=== PATIENT | female | born 1980 | race Caucasian/White ===

== ENCOUNTER → 2023-02-14 10:00 | Outpatient (CLI) | payer MEDICAID, SELFPAY ==
--- NOTE | 2023-02-14 10:00 | MR_ITS ---
FINAL REPORT CLINICAL HISTORY: 2wk s/p TIA diagnosis, eval for CVA had cva on january 24 constent headaches best images possible due to patient moving FINDINGS: Multi planar MR imaging was obtained through the brain without contrast. Images are degraded by patient motion. The midline structures appear intact. There is no evidence of Chiari malformation. On T2 and flair axial images the brain parenchyma is homogeneous. On diffusion-weighted images there is no evidence of restricted diffusion. The visualized paranasal sinuses demonstrate normal signal voids. The seventh and eighth nerve root complexes are intact. IMPRESSION: Essentially unremarkable nonenhanced brain MRI. Reviewed, Interpreted and Dictated by Doc Antonio MD Transcribed by Samantha Cardona Authenticated and [facility]
--- NOTE | 2023-02-14 10:00 | MR_ITS ---
FINAL REPORT CLINICAL HISTORY: eval for stenosis, brisk reflexes, neck pain FINDINGS: Multi planar MR imaging was obtained of the cervical spine. There is abnormal decreased signal throughout the cervical discs. The vertebrae are of normal height. There is no malalignment. The cervical cord demonstrates normal signal and configuration. C2-C3: There is no evidence of significant disc bulge or protrusion. There is no significant facet hypertrophy. C3-C4: There is no evidence of significant disc bulge or protrusion. There is no significant facet hypertrophy. C4-C5: Small midline disc protrusion is present with mild spinal canal compromise. C5-C6: Moderate diffuse disc bulge is present. There is mild to moderate spinal and moderate bilateral neural foraminal narrowing. C6-C7: Mild diffuse disc bulge is present with mild bilateral neural foraminal narrowing. C7-T1: There is no evidence of significant disc bulge or protrusion. There is no significant facet hypertrophy. IMPRESSION: Moderate diffuse disc bulge at C5-6 with mild to moderate spinal and moderate bilateral neural foraminal narrowing. Small midline disc protrusion at C4-5 with mild spinal canal compromise. Reviewed, Interpreted and Dictated by Doc Antonio MD Transcribed by Samantha Cardona Authenticated and [facility]
== END ==
PROVIDERS: PCP Family Medicine; Visit Provider Nurse Practitioner Family
DX: R51.9 Headache, unspecified (principal); G89.29 Other chronic pain; M54.2 Cervicalgia; I10 Essential (primary) hypertension; R29.2 Abnormal reflex; R46.89 Other symptoms and signs involving appearance and behavior
CPT/HCPCS: 70551; 72141; 76376

== ENCOUNTER → 2023-03-31 19:32 | Outpatient (CLI) | payer MEDICAID, SELFPAY | PROVIDERS: PCP Family Medicine; Visit Provider Nurse Practitioner Family | DX: G47.33 Obstructive sleep apnea (adult) (pediatric) (principal); R06.83 Snoring; I10 Essential (primary) hypertension; E66.9 Obesity, unspecified; Z68.41 Body mass index [BMI] 40.0-44.9, adult | CPT/HCPCS: 95810 ==

== ENCOUNTER → 2023-04-25 10:48 | Outpatient (CLI) | payer MEDICAID, SELFPAY ==
--- NOTE | 2023-04-25 10:57 | MR_ITS ---
FINAL REPORT CLINICAL HISTORY: LEFT LEG WEAKNESS bilateral leg numbness x 2 months FINDINGS: Multiplanar MR imaging of the lumbar spine was performed without contrast. On the sagittal T2-weighted images, there is abnormal decreased signal at the L4-5 and L5-S1 levels. There is moderate loss of height at L5-S1. The vertebral alignment is normal. L1-2: There is no significant canal stenosis or neural foraminal narrowing. L2-3: There is no significant canal stenosis or neural foraminal narrowing. L3-4: There is no significant canal stenosis or neural foraminal narrowing. L4-5: There is no significant canal stenosis or neural foraminal narrowing. L5-S1: Rije-rc-[id number] diffuse disc bulge with endplate hypertrophy. Ajcb-[id number] bilateral neural foraminal narrowing. IMPRESSION: Diffuse disc bulge at L5-S1 with [id number]-[id number] bilateral neural foraminal narrowing. Reviewed, Interpreted and Dictated by Doc Antonio MD Transcribed by Mulu Russell Authenticated and [facility]
== END ==
PROVIDERS: PCP Family Medicine; Visit Provider Nurse Practitioner Family
DX: R29.898 Other symptoms and signs involving the musculoskeletal system (principal)
CPT/HCPCS: 72148; 76376

== ENCOUNTER 2024-01-30 11:18 | Day surgery (SDC) | payer MEDICAID, SELFPAY ==
[2024-01-30 13:10] VITALS: BP 121/72; PULSE 77; RESP 18; TEMP 36.3; O2SAT 98; BMI 38.2
[2024-01-30] MEDS: VANCOMYCIN HCL 2,000 MG in 0.9 % SODIUM CHLORIDE 250 ML 125 MG IV (13:18)
[2024-01-30] MEDS: LACTATED RINGERS 1000ML 1,000 ML 25 ML IV (13:18)
--- NOTE | 2024-01-30 14:32 | EXP.ANES.CKL ---
[facility] Disclaimer: The information contained in this section may have been updated after the patient was seen, as this information can be updated by other users. Medical History SANJU (obstructive sleep apnea) Chronic headaches Surgical History History of colonoscopy History of esophagogastroduodenoscopy (EGD) History of hysterectomy History of laparoscopic cholecystectomy History of ureteroscopy Family History Other Cancer Coronary artery disease Hypertension Stroke Thyroid disorder Social History Smoking Status: Never smoker alcohol intake: never substance use type: denies use current occupational status: other Travel in the last 8 weeks: None household members: spouse housing: house marital status: [facility] Anesthesia Checklist Patient Identification Patient Identification: Arm Band, Family (Father) and Verbal (Name & ) Structural Data Admitted From: Home Planned Operative Procedure/s: Intrathecal pain pump placement Consent for Planned Operative Procedure(s) Verified: Yes Verified Documents: Surgical Consent and History and Physical NPO Status Verified Time NPO: 19:00 Chart Verification Results Verified: CBC and BMP Additional verifications Patient : No (s/p Hysterectomy) Anesthesia Reactions: No Hx Blood Transfusions: No Cardiovascular Assessment Heart Sounds: S1 & S2 Pulse Rhythm: Irregular Airway Assessment Mallampati Score:: Class II C-Spine Mobility Assessed: Yes (Limited extension) TMJ Mobility Assessed: Yes Dentition: Edentulous Neurological Assessment Level of Consciousness: Awake, Alert, Appropriate and Follows Commands Hx Seizures: No Numbness or tingling in extremities: Yes (LISBETH LE) Anesthesia Plan Anesthesia Risk discussed: Yes Anesthesia Plan: Verified ASA Class: III Anesthesia Type: MAC
[2024-01-30] MEDS: SODIUM CHLORIDE 0.9% 20ML VIAL 20 ML IV (15:49)
[2024-01-30] MEDS: LIDOCAINE 2% w/EPI 1:200,000 20ML VIAL 40 ML (15:49)
[2024-01-30] MEDS: GENTAMICIN 80 MG/2 ML VIAL (15:49)
[2024-01-30 16:20] VITALS: BP 129/83; PULSE 90; RESP 16; TEMP 36.3; O2SAT 96
[2024-01-30] MEDS: MORPHINE 4MG/ML SYRINGE 4 MG (16:22)
--- NOTE | 2024-01-30 16:23 | EXP.ANES.I ---
[facility] Anesthesia Record Part I Anesthesia Record I Intake, IV Amount: 900 Hydration: Adequate Estimated blood loss (mL): 10 Urine output (mL): 0 Blood Products used (#): none Blood Pressure: 129/83 SaO2: 96 Pulse Rate: 91 Airway Patency: Patent Respiratory Rate: 16 Temperature: 97.3 F Patient is:: Awake (Talking) and Stable Stable to PACU at:: 16:25
[2024-01-30 16:25] VITALS: BP 129/83; PULSE 91; RESP 16; TEMP 36.3; O2SAT 96
[2024-01-30] MEDS: KETOROLAC 30MG/ML VIAL 30 MG IV (16:25)
[2024-01-30 16:30] VITALS: BP 119/87; PULSE 84; RESP 16; O2SAT 97
[2024-01-30 16:40] VITALS: BP 112/85; PULSE 83; RESP 16; O2SAT 95
[2024-01-30 16:50] VITALS: BP 104/63; PULSE 84; RESP 16; TEMP 36.6; O2SAT 95
--- NOTE | 2024-01-30 16:54 | P.OP_ITS ---
Date of procedure: 01/30/24 Pre-op Diagnosis:: Degenerative disc disease of lumbar spine with lumbar radiculopathy symptoms Post-op Diagnosis:: Same Procedure performed:: Placement of permanent intrathecal pain pump with tunneled intrathecal catheter and pain pump reservoir. Surgeon:: Sascha Bueno MD BIBLE TEACHER:: Other Anesthesia: MAC Estimated blood loss (mL): 5 Clinical Note:: This patient is a pleasant 43-year-old white female who we are seeing in [place]. We are treating her for low back pain with lumbar radicular symptoms. She has failed all previous conservative treatments including injections, oral medications, physical therapy and she is not a candidate for surgery. She has had a successful psychological evaluation and a successful intrathecal pump trial. She presents for permanent placement of her intrathecal pain pump today. Operative findings:: None Operative note:: Informed consent was obtained risk and benefits of the procedure were explained to the patient. Patient was taken the operating room placed prone on the procedure table. She was prepped and draped in sterile fashion. C-arm fluoroscopy was used to view the left flank. Assisted between the 12th rib and iliac crest the skin and subcutaneous tissues were anesthetized using lidocaine. I made an incision and dissected out the pump pocket. C-arm fluoroscopy was then used to view the lumbar spine. The skin and subcutaneous tissues adjacent to the L4-5 and L5-S1 interspace were anesthetized using lidocaine. I made an incision and dissected down to the lumbar paraspinous fascia. A 17-gauge spinal needle was inserted and advanced into the L4-5 interspace until clear CSF was obtained. After this intrathecal catheter was inserted and advanced very easily to the T8 vertebral body. Catheter was midline and posterior. The stylette of the catheter and the needle withdrawn. The catheter secured to the fascia with an anchoring device and 2-0 Prolene. I then prepared the pump with 20 mL of intrathecal morphine 1 mg/mL. I tunneled the catheter from the back to the pump pocket and attached catheter to the pump. The pump was placed in the pocket with an antibiotic pouch. We are able to freely withdraw clear CSF through the sideport. Both incisions were then closed with 2-0 Vicryl followed by 4-0 nylon and subcutaneous mel. The pump was interrogated and started at 100 mcg/day. Patient tolerated the procedure well she was discharged home neurologically intact with good relief of pain symptoms. Plan and disposition: We will follow-up with this patient in our [place] office. Will see her back in 1 week for wound check and reprogramming of her pump. Will see her back in 2 to 3 weeks for removal of her sutures. Condition: stable Disposition: PACU Complications:: None
== END 2024-01-30 16:50 | disposition home or self-care (01) ==
PROVIDERS: PCP Family Medicine; Visit Provider Anesthesiology
PROC: (CPT 62350; principal; 2024-01-30 13:30)
DX: M51.16 Intervertebral disc disorders with radiculopathy, lumbar region (principal)
CPT/HCPCS: 62350; 62362; C1755; C1772; J3370

== ENCOUNTER 2024-02-05 13:01 | Outpatient (POV) | payer MEDICAID, SELFPAY ==
[2024-02-05 13:36] VITALS: BP 107/71; PULSE 91; RESP 18; O2SAT 96; BMI 38.2
--- NOTE | 2024-02-05 13:50 | EXP.PAIN.PRO ---
Procedure Date: 02/05/24 Time: 13:50 Anesthesiologist:: Jeanne Blanton APRN Complications:: None Pre-procedure Diagnosis:: Degenerative disc disease of lumbar spine with lumbar radiculopathy symptoms, chronic pain syndrome Post-procedure Diagnosis:: Same Indications for Procedure:: Patient is a pleasant 43-year-old female who presents today for 1 week postop visit of intrathecal pain pump placement on 01/30/2024. Today she rates her pain a 7 out of 10. Patient denies any problems following surgery however she states she has not noticed significant relief with her current dosage. Patient is currently managed with intrathecal morphine 1 mg/mL with a daily dose of 0.1001 mg/day. She denies any side effects from this medication. Her Abram has been reviewed. Patient was recently given a prescription of pain medication from an outside provider with a 3-day dose. Physical Exam: General: Alert and oriented x3, no acute distress, pleasant and cooperative Lungs: Respirations even and unlabored, symmetrical chest expansion Eyes: PERRL Musculoskeletal: Flexion and extension of lumbar [spine] somewhat guarded secondary to pain, [antalgic gait noted] Neurological: Speech clear, no gross sensory deficit Skin: Incision sites clean, dry, well-approximated with minimal erythema noted Procedure Details:: Informed consent was obtained and the risk and benefits of the procedure were explained to the patient. Patient was taken to the procedure room where noninvasive monitoring was placed including noninvasive blood pressure cuff and pulse oximeter. Patient's pump was interrogated and was reprogrammed to morphine 0.1202 g/day. The patient tolerated the procedure well with no complications. Plan and Disposition:: Patient tolerated her intrathecal increase with no complications and was discharged neurologically intact. Patient has been counseled to continue her postop restrictions and that we will plan on taking out her sutures next week. Patient is agreeable with this plan of care. Patient will return to clinic in 1 week for reevaluation of symptoms and plan of care. Patient has been instructed to contact the clinic with any concerns before the next appointment. Dr. Bueno has reviewed this note and agrees with this plan of care. This note was dictated using voice recognition software and make contain errors or omissions.
== END 2024-02-05 23:59 | disposition home or self-care (01) ==
PROVIDERS: PCP Family Medicine; Visit Provider Nurse Practitioner Family
DX: M51.16 Intervertebral disc disorders with radiculopathy, lumbar region (principal); G89.4 Chronic pain syndrome; Z97.8 Presence of other specified devices; Z45.1 Encounter for adjustment and management of infusion pump
CPT/HCPCS: 62368; 99213; G0463

== ENCOUNTER 2024-02-11 14:07 | Outpatient (POV) | payer MEDICAID, SELFPAY ==
--- NOTE | 2024-02-11 15:02 | EXP.PAIN.PRO ---
Procedure Date: 02/11/24 Time: 15:02 Anesthesiologist:: Jeanne Blanton APRN Complications:: None Pre-procedure Diagnosis:: Degenerative disc disease of lumbar spine with lumbar radiculopathy symptoms Post-procedure Diagnosis:: Same Indications for Procedure:: Patient is a pleasant 43-year-old female who presents today for intrathecal adjustment and reprogram and suture removal. Today she rates her pain a 5 out of 10. She denies any new trauma or injury. She does state that her pain is a little bit more tolerable from our last visit. She does state that her sutures are still very irritating and causing burning itching and tender to touch. Patient is currently managed with intrathecal morphine 1 mg/mL with a daily dose of 0.1 to 02 mg/day. She denies any side effects from this medication. Her Abram has been reviewed. Patient did have a recent prescription of Percocet with 12 tablets prescribed from an outside provider. Physical Exam: General: Alert and oriented x3, no acute distress, pleasant and cooperative Lungs: Respirations even and unlabored, symmetrical chest expansion Eyes: PERRL Musculoskeletal: Flexion and extension of lumbar [spine] somewhat guarded secondary to pain, [antalgic gait noted] Neurological: Speech clear, no gross sensory deficit Skin: Incision sites clean, dry, well-approximated with minimal erythema noted and sutures intact Procedure Details:: Informed consent was obtained and the risk and benefits of the procedure were explained to the patient. Patient was taken to the procedure room where noninvasive monitoring was placed including noninvasive blood pressure cuff and pulse oximeter. Patient's pump was interrogated and was reprogrammed to morphine 0.13 to 3 mg/day. The patient tolerated the procedure well with no complications. Plan and Disposition:: Patient tolerated her intrathecal increase with no complications and was discharged neurologically intact. Patient sutures were removed all but 3 in the lateral incision. We will wait and remove these at our next visit. Patient has been counseled to continue her full 6-week postop restrictions. Patient will return to clinic in 2 weeks for reevaluation of symptoms and plan of care. We will plan on following up with the patient regarding the Percocet prescription that she got from an outside provider to review over that she cannot do the oral medications with the pain medication in her pump due to increased risk of side effects. Patient has been instructed to contact the clinic with any concerns before the next appointment. Dr. Bueno has reviewed this note and agrees with this plan of care. This note was dictated using voice recognition software and make contain errors or omissions. -- It Is medically necessary for this patient to continue to have their intrathecal pump refilled at regular intervals. This patient had an intrathecal pain pump implanted after meeting criteria of chronic intractable pain for greater than 3 months and failing conservative treatments. Patient has committed and been compliant to the treatment plan and all planned follow up care. Since implantation of the intrathecal pain pump, the patient has had decreased pain and been more functional. Oral medications have been reduced including intake of oral opioids. Patient continues to do well with intrathecal therapy with decrease in pain symptoms and increase in functional status. Stopping intrathecal medications can lead to life threatening withdrawal, seizures, cardiac arrest, severe pain, and possible . Pumps that are not refilled at regular intervals can be damages and cause and need for replacement. We continually titrate dose and concentration to optimize pain relief and function. We are limited in concentration for certain drugs to safely deliver medications through the pump and stay within the recommendations from the [employer]yan[employer] Consensus [employer] Guidelines. Depending on dose and concentration these pumps may need to be refilled sooner than 3 months as we titrate.
[2024-02-11 15:32] VITALS: BP 111/76; PULSE 83; RESP 18; O2SAT 100; BMI 38.2
== END 2024-02-11 23:59 | disposition home or self-care (01) ==
PROVIDERS: PCP Family Medicine; Visit Provider Nurse Practitioner Family
DX: M51.16 Intervertebral disc disorders with radiculopathy, lumbar region (principal); Z97.8 Presence of other specified devices; Z45.1 Encounter for adjustment and management of infusion pump; Z48.02 Encounter for removal of sutures
CPT/HCPCS: 62368; 99213; G0463

== ENCOUNTER 2024-03-03 09:53 | Outpatient (POV) | payer MEDICAID, SELFPAY ==
[2024-03-03 10:04] VITALS: BP 144/96; PULSE 75; RESP 19; TEMP 36.8; O2SAT 97; BMI 38.2
--- NOTE | 2024-03-03 10:25 | P.PCN_ITS ---
Procedure Date: 03/03/24 Time: 10:26 Anesthesiologist:: Jeanne Blanton APRN Complications:: None Pre-procedure Diagnosis:: Degenerative disc disease of lumbar spine with lumbar radiculopathy symptoms Post-procedure Diagnosis:: Same Indications for Procedure:: Patient is a pleasant 43-year-old female who presents today for intrathecal adjustment and reprogram and suture removal. Today she rates her pain a 5 out of 10 in her overall low back symptoms and a 7 out of 10 related to her neck. She denies any new trauma or injury. She does state that she went to the doctor's office about 2 weeks ago and that they did have some concern regarding her incision and gave her some oral antibiotics. She denies any other problems other than the old skin glue that is still present does cause itching. She is currently managed with intrathecal morphine 1 mg/mL with a daily dose of 0. 1323 mg/day. She denies any side effects from this medication. Her Abram is [phone]. Has been reviewed and is appropriate Physical Exam: General: Alert and oriented x3, no acute distress, pleasant and cooperative Lungs: Respirations even and unlabored, symmetrical chest expansion Eyes: PERRL Musculoskeletal: Flexion and extension of lumbar [spine] somewhat guarded secondary to pain, [antalgic gait noted] Neurological: Speech clear, no gross sensory deficit Skin: Incision sites clean, dry, well-approximated with minimal erythema noted and sutures intact Procedure Details:: Informed consent was obtained and the risk and benefits of the procedure were explained to the patient. Patient was taken to the procedure room where noninvasive monitoring was placed including noninvasive blood pressure cuff and pulse oximeter. Patient's pump was interrogated and was reprogrammed to morphine 0.1455 mg/day. The patient tolerated the procedure well with no complications. Plan and Disposition:: Patient did have the remainder 3 sutures removed at today's visit. I have discussed with the patient that she may benefit from a cervical injection in the future. We will follow-up at future visits. Patient was informed to continue her postop restrictions for the full 6 weeks. Patient acknowledges under standing. She did tolerated her intrathecal increase with no complications and was discharged neurologically intact. We will follow-up with her in 1 month for reevaluation of symptoms and plan of care. Patient has been instructed to contact the clinic with any concerns before the next appointment. Dr. Bueno has reviewed this note and agrees with this plan of care. This note was dictated using voice recognition software and make contain errors or omissions. -- It Is medically necessary for this patient to continue to have their intrathecal pump refilled at regular intervals. This patient had an intrathecal pain pump implanted after meeting criteria of chronic intractable pain for greater than 3 months and failing conservative treatments. Patient has committed and been compliant to the treatment plan and all planned follow up care. Since implantation of the intrathecal pain pump, the patient has had decreased pain and been more functional. Oral medications have been reduced including intake of oral opioids. Patient continues to do well with intrathecal therapy with decrease in pain symptoms and increase in functional status. Stopping intrathecal medications can lead to life threatening withdrawal, seizures, cardiac arrest, severe pain, and possible . Pumps that are not refilled at regular intervals can be damages and cause and need for replacement. We continually titrate dose and concentration to optimize pain relief and function. We are limited in concentration for certain drugs to safely deliver medications through the pump and stay within the recommendations from the Polyanalgesic Consensus Committee Guidelines. Depending on dose and concentration these pumps may need to be refilled sooner than 3 months as we titrate.
== END 2024-03-03 23:59 | disposition home or self-care (01) ==
PROVIDERS: PCP Family Medicine; Visit Provider Nurse Practitioner Family
DX: M51.16 Intervertebral disc disorders with radiculopathy, lumbar region (principal); Z97.8 Presence of other specified devices; Z45.1 Encounter for adjustment and management of infusion pump; Z48.02 Encounter for removal of sutures
CPT/HCPCS: 62368; 99212; 99213; G0463

== ENCOUNTER 2024-04-14 12:48 | Outpatient (POV) | payer MEDICAID, SELFPAY ==
[2024-04-14 12:57] VITALS: BP 150/96; PULSE 66; RESP 16; O2SAT 98; BMI 39.2
--- NOTE | 2024-04-14 13:05 | P.PCN_ITS ---
Procedure Date: 04/14/24 Time: 13:05 Anesthesiologist:: Jeanne Blanton APRN Complications:: None Pre-procedure Diagnosis:: Degenerative disc disease of lumbar spine with lumbar radiculopathy symptoms Post-procedure Diagnosis:: Same Indications for Procedure:: Patient is a pleasant 43-year-old female who presents today for intrathecal adjustment and reprogram. Today she rates her pain a 7 out of 10. Patient denies any new trauma or injury. She does state that she is still having a burn ing throbbing pain in and around her lateral incision that does go into her buttocks with some numbness. Patient states that she has had the numbness even before the pump however it just seems to be progressively worsening. Patient is currently managed with morphine 1 mg/mL with a daily dose of 0.1455 mg/day. She denies any side effects from this medication. She is on at home refill client with [facility] and does state that she believes her next refill will be around May. Her Abram has been reviewed and is appropriate. Physical Exam: General: Alert and oriented x3, no acute distress, pleasant and cooperative Lungs: Respirations even and unlabored, symmetrical chest expansion Eyes: PERRL Musculoskeletal: Flexion and extension of lumbar [spine] somewhat guarded secondary to pain, [antalgic gait noted] point tenderness around left lateral incision site Neurological: Speech clear, no gross sensory deficit Procedure Details:: Informed consent was obtained and the risk and benefits of the procedure were explained to the patient. Patient was taken to the procedure room where noninvasive monitoring was placed including noninvasive blood pressure cuff and pulse oximeter. Patient's pump was interrogated and was reprogrammed to morphine 0.1601mg/day. The patient tolerated the procedure well with no complications. Plan and Disposition:: Patient tolerated her intrathecal increase with no complications. I have discussed with patient that I will order a compounded cream however if the pain does not seem to get any better that she may benefit from trigger point injections in and around her lateral incision site where the pump is. Patient acknowledges understanding and agrees with this plan of care. We will not give her a follow-up at this time however she states she will give us a call if she needs anything between now and her next pump refill. We will see the patient back in the clinic at the next intrathecal refill. Patient has been instructed to contact the clinic with any concerns before the next appointment. Dr. Bueno has reviewed this note and agrees with this plan of care. This note was dictated using voice recognition software and make contain errors or omissions. -- It Is medically necessary for this patient to continue to have their intrathecal pump refilled at regular intervals. This patient had an intrathecal pain pump implanted after meeting criteria of chronic intractable pain for greater than 3 months and failing conservative treatments. Patient has committed and been compliant to the treatment plan and all planned follow up care. Since implantation of the intrathecal pain pump, the patient has had decreased pain and been more functional. Oral medications have been reduced including intake of oral opioids. Patient continues to do well with intrathecal therapy with decrease in pain symptoms and increase in functional status. Stopping intra thecal medications can lead to life threatening withdrawal, seizures, cardiac arrest, severe pain, and possible . Pumps that are not refilled at regular intervals can be damages and cause and need for replacement. We continually titrate dose and concentration to optimize pain relief and function. We are limited in concentration for certain drugs to safely deliver medications through the pump and stay within the recommendations from the Polyanalges[employer] Consensus Committee Guidelines. Depending on dose and concentration these pumps may need to be refilled sooner than 3 months as we titrate.
== END 2024-04-14 23:59 | disposition home or self-care (01) ==
PROVIDERS: PCP Family Medicine; Visit Provider Nurse Practitioner Family
DX: M51.16 Intervertebral disc disorders with radiculopathy, lumbar region (principal); Z97.8 Presence of other specified devices; Z45.1 Encounter for adjustment and management of infusion pump
CPT/HCPCS: 62368; 99212; G0463

== ENCOUNTER 2024-10-19 10:45 | Day surgery (SDC) | payer MEDICAID, SELFPAY ==
--- OUTSIDE RECORDS SUMMARY | 2024-10-19 10:48 | XMS_ITS | Clinical Summary ---
Author Organization [employer] Address [address] [place] [address] Care Team Providers Care Sba Underwriter Name Role Phone Uyen Hines MD Primary Care Provider [phone] Gee Quan BULL RIDER Unavailable [phone] Allergies No known active allergies Medications ALPRAZolam (XANAX) 1 MG tablet Take 1 tablet (1 mg total) by mouth 3 (three) times daily as needed. 3 Active busPIRone (BUSPAR) 7.5 MG tablet Take by mouth. Activ e escitalopram oxalate (LEXAPRO) 20 MG tablet Take 1 tablet (20 mg total) by mouth. 2 Active levothyroxine (SYNTHROID, LEVOTHROID) 200 MCG tablet Take 1 tablet (200 mcg total) by mouth. 2 Active lisinopriL (PRINIVIL,ZESTRIL ) 10 MG tablet Take 1 tablet (10 mg total) by mouth daily. 3 Active carvediloL (COREG) 6.25 MG tablet Take 1 tablet (6.25 mg total) by mouth 2 (two) times daily with breakfast and dinner. Active aspirin 81 MG EC tablet Take 1 tablet (81 mg total) by mouth daily. Active TiZANidine (ZANAFLEX) 4 MG capsule Take 1 capsule (4 mg total) by mouth 3 (three) times daily. Active ubrogepant 100 mg Tab Take by mouth. Activ e acetaminophen (TYLENOL ARTHRITIS ORAL) Take by mouth. Active acetaminophen (TYLENOL) 500 MG tablet Take 1 tablet (500 mg total) by mouth every 6 (six) hours as needed for Pain. Active sucralfate (CARAFATE) 100 mg/mL suspensionIndicat ions:Eosinophilic esophagitis,Esoph ageal dysphagia Take 10 mLs (1 g total) by mouth 3 (three) times daily before meals. 900 mL 1 4 Active pantoprazole (PROTONIX) 40 MG tabletIndications :Gastroesophageal reflux disease with esophagitis without hemorrhage Take 1 tablet (40 mg total) by mouth 2 (two) times daily. 180 tablet 2 4 Active pancrelipase, Urq-Idgy-Dvug, (Creon) 36,000-114,000- 180,000 unit CpDR capsule Take 2 capsule by mouth 3 times daily with meals and 1 cap with snacks.. 300 capsule 11 4 Active polyethylene glycol (GLYCOLAX) 17 gram/dose powderIndications :Acute constipation Mix with 8 oz liquid.Take 1-2 capfuls (17 gm each) by mouth twice daily until having regular BM's, then once daily. 510 g 4 Active budesonide (Eohilia) 2 mg/10 mL SpPkIndications:E osinophilic esophagitis Take 2 mg by mouth 2 (two) times daily. 60 packet 2 4 Active colestipoL (COLESTID) 1 gram tabletIndications :Diarrhea, unspecified type Take 1 tablet (1 g total) by mouth 3 (three) times daily. 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 Generalized abdominal pain 09/07/2024 CHF (congestive heart failure) 12/18/2023 Gastroesophageal reflux disease 12/18/2023 Dysphagia 12/18/2023 Chronic renal insufficiency 12/18/2023 SANJU (obstructive sleep apnea) 12/18/2023 Anxiety 02/24/2023 CKD (chronic kidney disease), stage III 02/25/20 Depression 02/24/2023 Eosinophilic esophagitis 02/24/2023 Hypertension 02/24/2023 Hypothyroid 02/24/2023 Migraines 02/24/2023 Stroke (cerebrum) 02/24/2023 Encounters Date Type Department Care Team Description 09/28/2024 9:30 AM EST - 09/28/2024 11:59 PM EST Hospital Encounter [facility] Nuclear Medicine [address] [place] [address] Galen Alvarenga MD Generalized abdominal pain; Weight loss, unintentional; Constipation, unspecified constipation type; Elevated fecal calprotectin; Common bile duct dilation; Dysphagia, unspecified type; Diarrhea, unspecified type Discharge Disposition: Home or Self Care 09/27/2024 Travel 09/20/2024 Orders Only [facility] Gastroenterology [address] [place] [address] Galen Alvarenga MD Generalized abdominal pain (Primary Dx); Weight loss, unintentional; Constipation, unspecified constipation type; Elevated fecal calprotectin; Common bile duct dilation; Dysphagia, unspecified type; Diarrhea, unspecified type 09/17/2024 Telephone [facility] Gastroenterology [address] [place] [address] Galen Alvarenga MD 0 09/16/2024 Travel 09/13/2024 Travel 09/07/2024 6:24 PM EDT - 09/07/2024 10:16 PM EDT Emergency [facility] Emergency Department [address] [place] [address] Salvador Suh MD Addisons disease (HCC) (Primary Dx); Stage 3a chronic kidney disease (HCC); Generalized abdominal pain Discharge Disposition: Home or Self Care 09/07/2024 Travel 09/02/2024 Orders Only [facility]enter[facility] [address] [place] [address] Galen Alvarenga MD Generalized abdominal pain (Primary Dx); Weight loss, unintentional; Constipation, unspecified constipation type; Elevated fecal calprotectin; Common bile duct dilation 09/01/2024 7:34 AM EDT Anesthesia Event [facility] Endoscopy [address] [place] [address] Juan Adam CRNA Demaio, John Mario, MD 09/01/2024 7:30 AM EDT - 09/01/2024 7:58 AM EDT Surgery [facility] [address] [place] [address] Galen Alvarenga MD ENDOSCOPY, UPPER GI TRACT, WITH BIOPSY 09/01/2024 6:52 AM EDT - 09/01/2024 8:23 AM EDT Hospital Encounter [facility] [address] [place] [address] Galen Alvarenga MD Dysphagia Discharge Disposition: Home or Self Care 09/01/2024 Travel 2024 10:00 AM EDT - 2024 11:59 PM EDT Hospital Encounter [facility] [address] [place] [address] Danya Marcus APRN Elevated fecal calprotectin Discharge Disposition: Home or Self Care 2024 Travel from Last 3 Months Family History Medical History Relation Name Comments Heart disease Father Colon cancer Maternal Grandmother Relation Name Status Comments Father Maternal Grandmother Mother Alive Social History Tobacco Use Types Packs/Day Years Used Date Smoking Tobacco: Never Smokeless Tobacco: Never Tobacco Cessation:Counseling Given: Not Answered Alcohol Use Standard Drinks/Week Comments Never 0 (1 standard drink = 0.6 oz pur e alcohol) Interpersonal Safety Answer Date Record ed Family or friends hurt you Not on file 12/11 Family or friends insult you Not on file Family or friends threaten you Not on file 0 12/11/2023 Family or friends scream or curse at you Not on file 12/11/2023 Housing Stability Answer Date Recorded Living situation today Not on file Living situation problems Not on file 2023 Food Insecurity Answer Date Recorded Food run out past 12 months Not on file 11/24 Food did not last past 12 months Not on file 12/11/2023 Employment Answer Date Recorded Help finding and keeping a job Not on file 0 12/11/2023 Family and Community Support Answer Alexander e Recorded Help with Day to Day Activities Not on file 12/11/2023 Feeling Lonely or Isolated Not on file 12/11 Educational Attainment Answer Date Ralf rded Speak language other than Wallisian at home Not on file 12/11/2023 Want help with school or training Not on file 12/11/2023 Depression Answer Date Recorded PHQ-2 Risk Not on file 12/11/2023 Disabilities Answer Date Recorded Difficulty concentrating Not on file 024 Difficulty doing errands alone Not on file 0 12/11/2023 Substance Use Answer Date Recorded Used prescription meds for non-medical reasons N ot on file 12/11/2023 Used illegal drugs past 12 months Not on file 12/11/2023 Comments No Sex and Gender Information Value Date Recorded Sex Assigned at Not on file Legal Sex Female 5:55 PM CDT Gender Identity Not on file Sexual Orientation Not on file Last Filed Vital Signs Vital Sign Reading Time Taken Comments Blood Pressure 136/74 09/07/2024 10:00 PM EDT Pulse 64 09/07/2024 10:00 PM EDT Temperature 36.5 ??C (97.7 ??F) 09/07/2024 6:29 PM ED T Respiratory Rate 16 09/07/2024 10:00 PM EDT Oxygen Saturation 98% 09/07/2024 10:00 PM EDT Inhaled Oxygen Concentration - - Weight 104.8 kg (231 lb) 09/07/2024 6:29 PM EDT Height 165.1 cm (5' 5 ) 09/07/2024 6:29 PM EDT Body Mass Index 38.44 09/07/2024 6:29 PM EDT Plan of Treatment Upcoming Encounters Date Type Department Care Team (Late st Contact Info) Description 12/28/2024 11:00 AM EST Office Visit [facility] Gastroenterology [address] [place] [id number] Galen Alvarenga MD [address] [place] [address] Health Maintenance Due Date Last Done Comments HIV Screening 1997 Hepatitis C Screening 2000 DTAP/TDAP/TD VACCINES (1 - Tdap) 2001 Lipid Panel 2002 Pap Smear 2003 Breast Cancer Screening 2022 COVID-19 VACCINE ( - 2023- season) 2024 Influenza Vaccine (#1) 2024 Tobacco Cessation Counseling and Screening (12+) 09/0709/07/2024 Procedures Procedure Name Priority Date/Time Associated Diagnosis Comments NM GASTRIC EMPTYING STUDY Routine 09/28/2024 12:53 PM EST Generalized abdominal pain Weight loss, unintentional Constipation, unspecified constipation type Elevated fecal calprotectin Common bile duct dilation Dysphagia, unspecified type Diarrhea, unspecified type CT ABDOMEN/PELVIS WITH IV CONTRAST STAT 09/07/2024 8:56 PM EDT XR CHEST 1 VIEW PORTABLE / BEDSIDE STAT 09/07/2024 7:39 PM EDT URINALYSIS, REFLEX MICROSCOPIC AND CULTURE IF INDICATED STAT 09/07/2024 7:20 PM EDT SARS-COV2 PCR (COVID 19) STAT 09/07/2024 7:16 PM EDT MAGNESIUM Add-On 09/07/2024 7:15 PM EDT HIGH SENSITIVITY TROPONIN I STAT 09/07/2024 7:15 PM EDT LIPASE STAT 09/07/2024 7:15 PM EDT COMPREHENSIVE METABOLIC PANEL STAT 09/07/2024 7:15 PM EDT CBC W/ AUTO DIFF STAT 09/07/2024 7:15 PM EDT FS_MODEL_IP_ECG 12-LEAD STAT 09/07/2024 7:05 PM EDT TISSUE EXAM [facility] AP Routine 09/01/2024 7:44 AM EDT Dysphagia MD EGD TRANSORAL BIOPSY SINGLE/MULTIPLE 09/01/2024 7:34 AM EDT Dysphagia Case Notes 0645 CT ABDOMEN & PELVIS - ENTEROGRAPHY Routine 2024 11:45 AM EDT Elevated fecal calprotectin POCT-CREATININE NOVA Routine 2024 11:20 AM EDT from Last 3 Months Results * NM GASTRIC EMPTYING STUDY (09/28/2024 12:53 PM EST) Anatomical Region Laterality Modality Abdomen Nuclear Medicine 09/28/2024 2:28 PM EST Impressions 09/28/2024 2:36 PM EST Normal T-1/2. ??No evidence of gastroparesis or gastric outlet obstruction. Images reviewed, interpreted, and dictated by Dr. Doc Antonio. Transcribed by Heath Flores PA-C. Narrative 09/28/2024 2:36 PM EST NUCLEAR MEDICINE GASTRIC EMPTYING HISTORY: Generalized abdominal pain, weight loss and constipation. PROCEDURE: The patient received a standardized meal with 0.471 mCi of Tc sulfur colloid. Images of the abdomen were obtained. The T-1/2 was calculated. FINDINGS: Images over the abdomen are unremarkable. The T-1/2 is 78 minutes. Procedure Note Doc Antonio MD - 09/28/2024 NUCLEAR MEDICINE GASTRIC EMPTYING HISTORY: Generalized abdominal pain, weight loss and constipation. PROCEDURE: The patient received a standardized meal with 0.471 mCi of Tc sulfur colloid. Images of the abdomen were obtained. The T-1/2 was calculated. FINDINGS: Images over the abdomen are unremarkable. The T-1/2 is 78 minutes. IMPRESSION: Normal T-1/2. No evidence of gastroparesis or gastric outlet obstruction. Images reviewed, interpreted, and dictated by Dr. Doc Antonio. Transcribed by Heath Flores PA-C. Galen [place]ga [place] [facility] Final Result * CT ABDOMEN/PELVIS WITH IV CONTRAST (09/07/2024 8:56 PM EDT) Anatomical Region Laterality Modality Abdomen, Pelvis Computed Tomogra phy (CT) 09/07/2024 9:23 PM EDT Impressions 09/07/2024 9:26 PM EDT No acute findings in the abdomen or pelvis to account for the patient's symptoms. Images personally reviewed, interpreted and dictated by Ke Lowery M.D. Narrative 09/07/2024 9:[address] SCAN OF THE ABDOMEN AND PELVIS WITH CONTRAST ?09/07/2024 8:43 PM HISTORY: Abdominal pain, acute, nonlocalized PROCEDURE: Axial CT images were obtained from the lung bases to the pubic symphysis following IV contrast administration. Coronal and sagittal reformatted images were generated from the axial data set and provided for interpretation. This study was performed with techniques to keep radiation doses as low as reasonably achievable, (ALARA). Individualized dose reduction techniques using automated exposure control or adjustment of mA and/or kV according to the patient size were employed. COMPARISON: 2024. FINDINGS: LOWER CHEST: The heart is normal in size. Lung bases are clear. ABDOMEN/PELVIS: Liver, gallbladder and bile ducts: The liver enhances homogenously without suspicious focal hepatic lesion. Prior cholecystectomy. No significant biliary ductal dilatation. Adrenal glands: The adrenal glands are morphologically unremarkable without suspicious lesion. Kidneys, ureters and urinary bladder: No suspicious renal lesions. No hydronephrosis. Unremarkable urinary bladder. Spleen: The spleen is normal in size. Pancreas: The pancreas is unremarkable. Gastrointestinal system and mesentery: There is no evidence of bowel obstruction. The appendix is visualized and unremarkable. No significant mesenteric inflammation. Lymph nodes: No pathologically enlarged abdominal or pelvic lymph nodes are present. Vessels: The abdominal aorta is normal in caliber. The celiac trunk, superior mesenteric artery, inferior mesenteric artery and their branch vessels appear grossly patent. The superior mesenteric vein, splenic vein and main portal veins are patent. The inferior vena cava and hepatic veins are unremarkable. Peritoneum: No free intraperitoneal fluid or pneumoperitoneum. Pelvic viscera: Prior hysterectomy. Body wall: No acute findings. No significant body wall hernias. Intrathecal drug delivery pump present within the left lumbar soft tissues. Bones: No acute fracture. Procedure Note Mendoza Bell MD - 09/07/2024 CT SCAN OF THE ABDOMEN AND PELVIS WITH CONTRAST 09/07/2024 8:43 PM HISTORY: Abdominal pain, acute, nonlocalized PROCEDURE: Axial CT images were obtained from the lung bases to the pubic symphysis following IV contrast administration. Coronal and sagittal reformatted images were generated from the axial data set and provided for interpretation. This study was performed with techniques to keep radiation doses as low as reasonably achievable, (ALARA). Individualized dose reduction techniques using automated exposure control or adjustment of mA and/or kV according to the patient size were employed. COMPARISON: 2024. FINDINGS: LOWER CHEST: The heart is normal in size. Lung bases are clear. ABDOMEN/PELVIS: Liver, gallbladder and bile ducts: The liver enhances homogenously without suspicious focal hepatic lesion. Prior cholecystectomy. No significant biliary ductal dilatation. Adrenal glands: The adrenal glands are morphologically unremarkable without suspicious lesion. Kidneys, ureters and urinary bladder: No suspicious renal lesions. No hydronephrosis. Unremarkable urinary bladder. Spleen: The spleen is normal in size. Pancreas: The pancreas is unremarkable. Gastrointestinal system and mesentery: There is no evidence of bowel obstruction. The appendix is visualized and unremarkable. No significant mesenteric inflammation. Lymph nodes: No pathologically enlarged abdominal or pelvic lymph nodes are present. Vessels: The abdominal aorta is normal in caliber. The celiac trunk, superior mesenteric artery, inferior mesenteric artery and their branch vessels appear grossly patent. The superior mesenteric vein, splenic vein and main portal veins are patent. The inferior vena cava and hepatic veins are unremarkable. Peritoneum: No free intraperitoneal fluid or pneumoperitoneum. Pelvic viscera: Prior hysterectomy. Body wall: No acute findings. No significant body wall hernias. Intrathecal drug delivery pump present within the left lumbar soft tissues. Bones: No acute fracture. IMPRESSION: No acute findings in the abdomen or pelvis to account for the patient's symptoms. Images personally reviewed, interpreted and dictated by Ke Lowery M.D. Artem Berry PA-C [facility]LES Final Res ult * XR chest 1 view portable / bedside (09/07/2024 7:39 PM EDT) Anatomical Region Laterality Modality X-Ray 09/07/2024 10:0 3 PM EDT Impressions 09/07/2024 10:04 PM EDT No acute cardiopulmonary findings. Images personally reviewed, interpreted and dictated by Ke Lowery M.D. Narrative 09/07/2024 10:04 PM EDT EXAMINATION TECHNIQUE: XR CHEST 1 VIEW PORTABLE / BEDSIDE CLINICAL HISTORY: GENERAL ILLNESS COMPARISON: 05/26/2024 FINDINGS: No dense consolidation. No pneumothorax or pleural effusion. Normal heart size. Procedure Note Mendoza Bell MD - 09/07/2024 EXAMINATION TECHNIQUE: XR CHEST 1 VIEW PORTABLE / BEDSIDE CLINICAL HISTORY: GENERAL ILLNESS COMPARISON: 05/26/2024 FINDINGS: No dense consolidation. No pneumothorax or pleural effusion. Normal heart size. IMPRESSION: No acute cardiopulmonary findings. Images personally reviewed, interpreted and dictated by Ke Lowery M.D. us Artem Berry PA-C [facility] ORDMati BRIGGSANTHONY Final Result * Urinalysis, Reflex Microscopic and Culture If Indicated (09/07/2024 7:20 PM EDT) Color, UA Yellow 09/07/2024 7:41 PM EDT [facility] Clarity, UA Clear 09/07/2024 7:41 PM EDT [facility] Specific [place], UA 1.015 1.002 - 1.030 09/07/2024 7:41 PM EDT [facility] pH, UA 6.0 5.0 - 9.0 09/07/2024 7:41 PM EDT [facility] Leukocytes, UA Negative Negative 09/07/2024 7:41 PM EDT [facility] Nitrite, UA Negative Negative 09/07/2024 7:41 PM EDT [facility] Protein, UA Negative Negative 09/07/2024 7:41 PM EDT [facility] Glucose, UA Negative Negative 09/07/2024 7:41 PM EDT [facility] Ketones, UA Negative Negative 09/07/2024 7:41 PM EDT [facility] Bilirubin, UA Negative Negative 09/07/2024 7:41 PM EDT [facility] Blood, UA Negative Negative 09/07/2024 7:41 PM EDT [facility] Urobilinogen, UA 0.2 mg/dL Normal 09/07/2024 7:41 PM EDT [facility] Specimen Source Urine, Clean Catch 09/07/2024 7:41 PM EDT [facility] Urine URINE SPECIMEN COLLECTION, CLEAN CATCH / Unknown 09/07/2024 7:20 PM EDT 09/07/2024 7:32 PM EDT Stefanicharito Jamal PA-C URINE ORDERABLES Final Resu lt Performing Organization Address City/[facility] Co de Phone Number [facility] [address] [place] [address] * SARS-COV2/RT-PCR (09/07/2024 7:16 PM EDT) SARS-COV2/RT-P CR Negative Negative DEVICE [id number] 09/07/2024 7:56 PM EDT [facility] Nasopharyngeal NASOPHARYNGEAL SWAB / Unknown 09/07/2024 7:16 PM EDT 09/07/2024 7:24 PM EDT Narrative [facility] - 09/07/2024 7:56 PM EDT Testing was performed using RT-PCR methodology approved for use under FDA Emergency Use Authorization only. Negative results do not preclude infection with the SARS-CoV-2 virus and should not be used as the sole basis of a patient treatment or public health decisions. Negative results must be considered in the context of an individual's recent exposures, history, and presence of clinical signs/symptoms. Follow-up testing should be performed according to the current CDC recommendations. Artem AGUILAR-C MICROBIOLOGY - GENERAL ORDE RABLES Final Result Performing Organization Address City/[facility]/ZIP Co de Phone Number [facility] [address] [place] [address] * (ABNORMAL) CBC with Auto Diff (09/07/2024 7:15 PM EDT) WBC 8.8 4.8 - 10.8 K/??L 09/07/2024 7:31 PM EDT [facility] RBC 4.55 3.50 - 5.20 M/??L 09/07/2024 7:31 PM EDT [facility] Hemoglobin 13.2 11.7 - 15.8 GM/DL 09/07/2024 7:31 PM EDT [facility] Hematocrit 40.2 35.0 - 47.0 % 09/07/2024 7:31 PM EDT [facility] MCV 88 81 - 101 fL 09/07/2024 7:31 PM EDT [facility] MCH 29.0 27.0 - 34.0 pg 09/07/2024 7:31 PM EDT [facility] MCHC 32.8 32.0 - 36.0 GM/DL 09/07/2024 7:31 PM EDT [facility] RDW 13.9 11.5 - 14.5 % 09/07/2024 7:31 PM EDT [facility] Platelets 359 150 - 400 K/CU MM 09/07/2024 7:31 PM EDT [facility] MPV 8.7(L) 9.4 - 12.4 fL 09/07/2024 7:31 PM EDT [facility] Nucleated Red Blood Cell 0.0 0 - 0.2 % 09/07/2024 7:31 PM EDT [facility] % Neutros 44 37 - 80 % 09/07/2024 7:31 PM EDT [facility] % Lymphs 39 10 - 50 % 09/07/2024 7:31 PM EDT [facility] % Monos 11 5 - 13 % 09/07/2024 7:31 PM EDT [facility] % Eos 5 0 - 7 % 09/07/2024 7:31 PM EDT [facility] % Baso 1 0 - 3 % 09/07/2024 7:31 PM EDT [facility] NRBC Absolute <0.01 0 - 0.012 K/ul 09/07/2024 7:31 PM EDT [facility] # Neutros 3.89 2.00 - 6.90 K/??L 09/07/2024 7:31 PM EDT [facility] # Lymphs 3.48(H) 0.60 - 3.40 K/??L 09/07/2024 7:31 PM EDT [facility] # Monos 0.93(H) 0.00 - 0.90 K/??L 09/07/2024 7:31 PM EDT [facility] # Eos 0.40 0.00 - 0.70 K/??L 09/07/2024 7:31 PM EDT [facility] # Baso 0.08 0.00 - 0.20 K/??L 09/07/2024 7:31 PM EDT [facility] Immature Granulocytes-Re lative 0.60 % 09/07/2024 7:31 PM EDT [facility] # IG 0.05(H) 0.00 - 0.00 K/uL 09/07/2024 7:31 PM EDT [facility] Blood ENTIRE LEFT UPPER ARM / Unknown Venipuncture / Unknown 09/07/2024 7:15 PM EDT 09/07/2024 7:26 PM EDT Narrative [facility] - 09/07/2024 7:31 PM EDT When CBC w/ Auto Diff is ordered the lab will add a Manual Differential as a quality check at no additional charge if: Lymphocytes greater than seventy five percent with normal or increased WBC Monocytes greater than Fifteen percent Basophil greater than four percent Bands >10% or several immature myeloids are seen on scan Blast? Flag noted Atypical Lymph flag noted Artem Berry PA-C LAB BLOOD ORDERABLES Final Result [facility] [address] [place] [address] * (ABNORMAL) High Sensitivity Troponin I (09/07/2024 7:15 PM EDT) Troponin I High Sensitivity (pg/mL) <4(L) 4 - 60.3 pg/mL 09/07/2024 8:01 PM EDT [facility] Comment: Troponin Result (pg/mL) ??*Interpretation 4-60.3 ? *Normal; less than 99th percentile of normal range >60.3 ?*Abnormal; greater than 99th percentile of normal range Biotin specimen concentration >300 ng/mL may lead to falsely depressed results for patient samples. ??Do not use this test for renal dysfunction patients (eGFR <60) unless it is confirmed that the patient is not taking Biotin. Blood ENTIRE LEFT UPPER ARM / Unknown Venipuncture / Unknown 09/07/2024 7:15 PM EDT 09/07/2024 7:26 PM EDT Artem Berry PA-C LAB BLOOD ORDERABLES Final Result Performing Organization Address [facility] Co de Phone Number [facility] [address] [place] [address] * Magnesium (09/07/2024 7:15 PM EDT) Magnesium 2.1 1.8 - 2.4 mg/dL 09/07/2024 9:31 PM EDT [facility] Blood ENTIRE LEFT UPPER ARM / Unknown Venipuncture / Unknown 09/07/2024 7:15 PM EDT 09/07/2024 7:26 PM EDT Monse Crooks PA-C LAB BLOOD ORDERABLES Final Resu lt Performing Organization Address City/[facility]/ZIP Co de Phone Number [facility] [address] [place] [address] * Lipase (09/07/2024 7:15 PM EDT) Lipase 29 16 - 77 U/L 09/07/2024 8:01 PM EDT [facility] Blood ENTIRE LEFT UPPER ARM / Unknown Venipuncture / Unknown 09/07/2024 7:15 PM EDT 09/07/2024 7:26 PM EDT Artem Berry PA-C LAB BLOOD ORDERABLES Final Result [facility] [address] [id number] [phone] * (ABNORMAL) Comprehensive metabolic panel (09/07/2024 7:15 PM EDT) Sodium 138 136 - 145 meq/L 09/07/2024 8:01 PM EDT [facility] Potassium 4.0 3.5 - 5.1 meq/L 09/07/2024 8:01 PM EDT [facility] Chloride 103 98 - 107 meq/L 09/07/2024 8:01 PM EDT [facility] CO2 29 21 - 32 meq/L 09/07/2024 8:01 PM EDT [facility] Calcium 8.9 8.5 - 10.1 mg/dL 09/07/2024 8:01 PM EDT [facility] Glucose 87 70 - 99 mg/dL 09/07/2024 8:01 PM EDT [facility] BUN 10 7 - 18 mg/dL 09/07/2024 8:01 PM EDT [facility] Creatinine 1.46(H) 0.55 - 1.10 mg/dL 09/07/2024 8:01 PM EDT [facility] BUN/Creatinine 7 09/07/2024 8:01 PM EDT [facility] Albumin 3.5 3.4 - 5.0 g/dL 09/07/2024 8:01 PM EDT [facility] Alkaline Phosphatase 74 46 - 116 U/L 09/07/2024 8:01 PM EDT [facility] ALT 13 12 - 78 U/L 09/07/2024 8:01 PM EDT [facility] AST 18 15 - 37 U/L 09/07/2024 8:01 PM EDT [facility] Total Bilirubin 0.4 0.2 - 1.0 mg/dL 09/07/2024 8:01 PM EDT [facility] Protein, Total 7.5 6.4 - 8.2 gm/dL 09/07/2024 8:01 PM EDT [facility] Anion Gap 10(L) 11 - 22 09/07/2024 8:01 PM EDT [facility] A/G Ratio 0.9 09/07/2024 8:01 PM EDT [facility] Globulin 4 g/dL 09/07/2024 8:01 PM EDT [facility] Osmolality Calc 274.1 8:01 PM EDT [facility] eGFR (mL/min/1.73m2) 46(L) >=60 mL/min/1.7 3m2 09/07/2024 8:01 PM EDT [facility] Comment:ESTIMATED GFR IS NOT ACCURATE CREATININE CLEARANCE IN PREDICTING GLOMERULAR FILTRATION RATE. ESTIMATED GFR IS NOT APPLICABLE FOR DIALYSIS PATIENTS. Blood ENTIRE LEFT UPPER ARM / Unknown Venipuncture / Unknown 09/07/2024 7:15 PM EDT 09/07/2024 7:26 PM EDT Artem Berry PA-C LAB BLOOD ORDERABLES Final Result [facility] [address] [place] [address] * ECG 12 lead (09/07/2024 7:05 PM EDT) VENTRICULAR RATE EKG/MIN 63 BPM GE MUSE ATRIAL RATE (MCT) 63 BPM GE MUSE MD Interval 152 ms GE MUSE QRS-INTERVAL (MSEC) 84 ms GE MUSE QT Interval 412 ms GE MUSE QTC Interval 421 ms GE MUSE P [place] 33 degrees GE MUSE R AXIS (MCT) 9 degrees GE MUSE T Wave [place] -4 degrees GE MUSE Harper Diagnosis Normal sinus rhythm Minimal voltage criteria for LVH, may be normal variant ( R in aVL ) Borderline ECG No previous ECGs available Confirmed by Josias SR RICHARD ([id number]) on 09/08/2024 5:03:41 PM GE MUSE 09/07/2024 7:05 PM EDT 09/08/2024 5:03 PM EDT us Artem Berry PA-C ECG ORDERABLES Final Resul t GE MUSE * Tissue Exam (09/01/2024 7:44 AM EDT) AP RESULT See Note: [facility] Comment: [facility] [address] ?[place] ??[address] or [phone] Cy Garcia M.D., Certified Real Estate Appraiser PATIENT NAME ? LABORATORY NO. [id number] ?? TOMMY PAGE. ? [phone] [id number] ? AGE ? SEX ?? SSN ?CLIENT REF # [facility] ? 42 ?1980 ?F ?[id number] DEAN ? REQUESTING M.D. ? ATTENDING M.D. ? COPY TO. [address] ? [place] [address] ?DATE COLLECTED ?DATE RECEIVED ?DATE REPORTED 09/01/2024 ?09/01/2024 ? 09/02/2024 DIAGNOSIS: A. ? ESOPHAGUS, BIOPSY, DISTAL: Squamous mucosa exhibiting changes of reflux esophagitis Negative for significant eosinophilia (up to 1 eosinophil identified per HPF) Negative for gastric type mucosa, dysplasia, neoplasia, malignancy B. ? ESOPHAGUS, BIOPSY, MID: Fragments of squamous mucosa exhibiting changes of mild chronic esophagitis Negative for significant eosinophilia (none identified) Negative for dysplasia, neoplasia, malignancy CLINICAL HISTORY: Dysphagia SPECIMENS RECEIVED: A. ?ESOPHAGUS, BIOPSY , DISTAL B. ?ESOPHAGUS, BIOPSY , MID MICROSCOPIC DESCRIPTION: Tissue blocks are prepared and slides are examined microscopically on all specimens. See diagnosis for details. Professional interpretation rendered by Shila Delgado M.D., F.C.A.P. at [facility], [address] [place] [address]. GROSS DESCRIPTION: A. ?Labeled as distal esophagus biopsy , consisting of 2 pieces nelson soft tissue measuring 0.5 x 0.4 x 0.1 cm, submitted entirely 1 cassette. ??SOG B. ?Labeled as midesophagus biopsy , consisting of 2 pieces nelson soft tissue measuring 0.6 x 0.5 x 0.1 cm, submitted entirely 1 cassette. REVIEWED, DIAGNOSED AND ELECTRONICALLY SIGNED BY: Shila Delgado M.D., F.C.A.P. CPT CODES: ??[id number] Tissue ESOPHAGEAL STRUCTURE / Unknown 09/01/2024 7:44 AM EDT Tissue specimen (specimen) BIOPSY OF ESOPHAGUS / Unknown 09/01/2024 7:44 AM EDT us Galen Alvarenga MD PATHOLOGY/CYTOLOGY ORDERABLES Final Result [facility] [address] [place] [address], [facility] * CT abdomen & pelvis - enterography W/Contrast (2024 11:45 AM EDT) Anatomical Region Laterality Modality Computed Tomogra phy (CT) 07/31/2024 11:5 7 AM EDT Impressions 07/31/2024 12:00 PM EDT No acute disease. Images reviewed, interpreted and dictated by Dr. Todd Yi MD Narrative 07/31/2024 12:[address] OF THE ABDOMEN AND PELVIS HISTORY: Chronic diarrhea with signs of inflammation. Assess for enteritis and colitis PROCEDURE: ??Routine axial images were obtained from the lung bases to the pubic symphysis following IV and oral low-attenuation contrast administration. This study was performed with techniques to keep radiation doses low as reasonably achievable, (ALARA). Individualized dose reduction techniques using automated exposure control or adjustment of mA and/or kV according to the patient size were employed. COMPARISON: None. FINDINGS: Abdomen: The gallbladder has been removed. There are incidental small bilateral renal cysts for which no further follow-up is recommended. There is a small nonobstructing left renal calculus. Solid abdominal organs and ureters are otherwise unremarkable. The GI tract is unremarkable, with no evidence of enterocolitis or appendicitis.. Pelvis: The uterus and ovaries are not visualized. The urinary bladder is normal. There is no pelvic or abdominal ascites, adenopathy, or acute osseous abnormality. Procedure Note Todd Yi MD - 07/31/2024 CT OF THE ABDOMEN AND PELVIS HISTORY: Chronic diarrhea with signs of inflammation. Assess for enteritis and colitis PROCEDURE: Routine axial images were obtained from the lung bases to the pubic symphysis following IV and oral low-attenuation contrast administration. This study was performed with techniques to keep radiation doses low as reasonably achievable, (ALARA). Individualized dose reduction techniques using automated exposure control or adjustment of mA and/or kV according to the patient size were employed. COMPARISON: None. FINDINGS: Abdomen: The gallbladder has been removed. There are incidental small bilateral renal cysts for which no further follow-up is recommended. There is a small nonobstructing left renal calculus. Solid abdominal organs and ureters are otherwise unremarkable. The GI tract is unremarkable, with no evidence of enterocolitis or appendicitis.. Pelvis: The uterus and ovaries are not visualized. The urinary bladder is normal. There is no pelvic or abdominal ascites, adenopathy, or acute osseous abnormality. IMPRESSION: No acute disease. Images reviewed, interpreted and dictated by Dr. Todd Yi MD Danya Marcus APRN IMG CT ORDERABLES Final Result * POC-Creatinine (2024 11:20 AM EDT) POC-Creatinine 1.5 mg/dL 2024 11:21 AM EDT [facility] POC-EGFR 44 mL/min/1. 73M2 2024 11:21 AM EDT [facility] Comment:Proceed with contras t if eGFR > 45 ml/min/1.73 when performed on the NovaSTAT strip Creatinine meter. Auto Body Technician Tomi Lam 2024 11:21 AM EDT [facility] Blood 2024 11:2 0 AM EDT 2024 11:21 AM EDT Narrative [facility] - 2024 11:21 AM EDT Auto Body Technician ID is - [id number] Danya Marcus APRN POINT OF CARE TEST ORDERABLES Final Result [facility] [address] [place] [address], [facility] [phone] from Last 3 Months Insurance [employer] [place] [address] Advance Directives For more information, please contact: [phone] * Full Code (Latest Code Status on File) Date Activated Date Inactivated Comments 12/17/2023 7:45 PM 12/18/2023 12:27 PM -Attempt Re suscitation if person has no pulse and is not breathing. -If no pulse or not breathing attempt CPR/CODE. -Call Rapid Response if patient is in distress. * Full Code Date Activated Date Inactivated Comments 02/24/2023 10:51 AM 02/24/2023 2:24 PM -Attempt Resu scitation if person has no pulse and is not breathing. -If no pulse or not breathing attempt CPR/CODE. -Call Rapid Response if patient is in distress. Care Teams Sba Underwriter Relationship Specialty Start Date End Date Uyen Hines MD [address] [place] [phone] PCP - General Family Medicine 02/11/23 Gee Quan APRN [address] [place] [phone] Nurse Practitioner 02/24/23
--- OUTSIDE RECORDS SUMMARY | 2024-10-19 10:49 | XMS_ITS | Encounter Summary ---
Author Organization [employer] Address [address] [facility] [place] [address] Care Team Providers Care Lens Assorter Name Role Phone Uyen Hines MD Primary Care Provider Gee Quan INVOICE CLERK Unavailable [phone] Reason for Referral * Nuclear Medicine (Routine) - Closed Specialty Diagnoses / Procedures Referred By Contac t Referred To Contact Radiology Diagnoses Generalized abdominal pain Weight loss, unintentional Constipation, unspecified constipation type Elevated fecal calprotectin Common bile duct dilation Dysphagia, unspecified type Diarrhea, unspecified type Procedures NM GASTRIC EMPTYING STUDY Christopher Mcghee MD [address] [facility] [address] [place] [address] Phone: tel: fax: [facility] Nuclear Medicine [facility] [place] [address] Phone: tel: fax: Referral ID Status Reason Start Date Expiration Date Visits Re quested Visits Authorized [id number] Closed 09/15/2024 11/14/2024 1 1 Reason for Visit * Nuclear Medicine (Routine) - Closed Specialty Diagnoses / Procedures Referred By Contac t Referred To Contact Radiology Diagnoses Generalized abdominal pain Weight loss, unintentional Constipation, unspecified constipation type Elevated fecal calprotectin Common bile duct dilation Dysphagia, unspecified type Diarrhea, unspecified type Procedures NM GASTRIC EMPTYING STUDY Christopher Mcghee MD [address] [place] [address] Phone: tel: fax: [facility] Nuclear Medicine [address] [place] [address] Phone: tel: fax: Referral ID Status Reason Start Date Expiration Date Visits Re quested Visits Authorized [id number] Closed 09/15/2024 11/14/2024 1 1 Encounter Details Date Type Department Care Team (Latest Contact Info) Description 09/28/2024 9:30 AM EST - 09/28/2024 11:59 PM [facility] Hospital Encounter [facility] Nuclear Medicine [address] [place] [address] Christopher Mcghee MD [address] [facility] [address] [place] [address] Generalized abdominal pain; Weight loss, unintentional; Constipation, unspecified constipation type; Elevated fecal calprotectin; Common bile duct dilation; Dysphagia, unspecified type; Diarrhea, unspecified type Discharge Disposition: Home or Self Care Social History Tobacco Use Types Packs/Day Years Used Date Smoking Tobacco: Never Smokeless Tobacco: Never Alcohol Use Standard Drinks/Week Comments Never 0 [...] Date Ralf rded Speak language other than Estonian at home Not on file 12/11/2023 Want [...] on file Sexual Orientation Not on file documented as of this encounter Medications at Time of Discharge acetaminophen (TYLENOL ARTHRITIS ORAL) Take by mouth. acetaminophen (TYLENOL) 500 MG tablet Take 1 tablet (500 mg total) by mouth every 6 (six) hours as needed for Pain. ALPRAZolam (XANAX) 1 MG tablet Take 1 tablet (1 mg total) by mouth 3 (three) times daily as needed. 02/02/2023 aspirin 81 MG EC tablet Take 1 tablet (81 mg total) by mouth daily. budesonide (Eohilia) 2 mg/10 mL SpPkIndications:Eo sinophilic esophagitis Take 2 mg by mouth 2 (two) times daily. 60 packet 2 07/08/2024 busPIRone (BUSPAR) 7.5 MG tablet Take by mouth. carvediloL (COREG) 6.25 MG tablet Take 1 tablet (6.25 mg total) by mouth 2 (two) times daily with breakfast and dinner. colestipoL (COLESTID) 1 gram tabletIndications: Diarrhea, unspecified type Take 1 tablet (1 g total) by mouth 3 (three) times daily. 60 tablet 5 07/08/2024 escitalopram oxalate (LEXAPRO) 20 MG tablet Take 1 tablet (20 mg total) by mouth. 03/27/2022 levothyroxine (SYNTHROID, LEVOTHROID) 200 MCG tablet Take 1 tablet (200 mcg total) by mouth. 04/23/2022 lisinopriL (PRINIVIL,ZESTRIL) 10 MG tablet Take 1 tablet (10 mg total) by mouth daily. 01/16/2023 pancrelipase, Ejd-Jbhs-Mwjs, (Creon) 36,000-114,000- 180,000 unit CpDR capsule Take 2 capsule by mouth 3 times daily with meals and 1 cap with snacks.. 300 capsule 11 05/05/2024 pantoprazole (PROTONIX) 40 MG tabletIndications: Gastroesophageal reflux disease with esophagitis without hemorrhage Take 1 tablet (40 mg total) by mouth 2 (two) times daily. 180 tablet 2 04/09/2024 polyethylene glycol (GLYCOLAX) 17 gram/dose powderIndications: Acute constipation Mix with 8 oz liquid.Take 1-2 capfuls (17 gm each) by mouth twice daily until having regular BM's, then once daily. 510 g 05/30/2024 sucralfate (CARAFATE) 100 mg/mL suspensionIndicati ons:Eosinophilic esophagitis,Esopha geal dysphagia Take 10 mLs (1 g total) by mouth 3 (three) times daily before meals. 900 mL 1 12/16/2023 TiZANidine (ZANAFLEX) 4 MG capsule Take 1 capsule (4 mg total) by mouth 3 (three) times daily. ubrogepant 100 mg Tab Take by mouth. documented as of this encounter Miscellaneous Notes * Result Encounter Note - Christopher Mcghee MD - 09/28/2024 9:30 AM EST Please inform patient that the results are normal, and to follow up if any new symptoms or problemsoccur. ING SUPERVISOR documented in this encounter Plan of Treatment Upcoming Encounters Date Type Department Care Team (Late st Contact Info) Description 12/28/2024 11:00 AM EST Office Visit [facility] Gastroenterology [address] [place] [address] Christopher Mcghee MD [address] [place] [address] documented as of this encounter Procedures Procedure Name Priority Date/Time Associated Diagnosis Comments NM GASTRIC EMPTYING STUDY Routine 09/28/2024 12:53 PM EST Generalized abdominal pain Weight loss, unintentional Constipation, unspecified constipation type Elevated fecal calprotectin Common bile duct dilation Dysphagia, unspecified type Diarrhea, unspecified type documented in this encounter Results * NM GASTRIC EMPTYING STUDY (09/28/2024 [...] Doc Antonio. Transcribed by Heath Flores PA-C. Christopher Mcghee MD [facility] NM ORDERABLES Final Result documented in this encounter Visit Diagnoses Diagnosis Generalized abdominal pain Abdominal pain, generalized Weight loss, unintentional Loss of weight Constipation, unspecified constipation type Elevated fecal calprotectin Common bile duct dilation Dysphagia, unspecified type Diarrhea, unspecified type documented in this encounter Administered Medications Inactive Administered Medications - up to 3 most recent administrations Medication Order MAR Action Action Date Dose Rate Site Tc-99m - sulfur colloid (NYCOMED-SC) 0.5 millicurie 0.5 millicurie Once, intravenous, On Fri09/28/24 at 1030, For 1 dose Given 09/28/2024 9:55 AM EST 0.5 millicuries documented in this encounter Care Teams Lens Assorter Relationship Specialty Start Date End Date Uyen Hines MD [address] [place] [phone] PCP - General Family Medicine 02/11/23 Gee Quan APRN [address] [place] [phone] Nurse Practitioner 02/24/23 documented as of this encounter
--- OUTSIDE RECORDS SUMMARY | 2024-10-19 10:49 | XMS_ITS | Encounter Summary ---
Author Organization [employer] Address [address] [place] [address] Care Team Providers Care Clinical Investigator Name Role Phone Uyen Hines MD Primary Care Provider [phone] Gee Quan BUNKER WORKER Unavailable Encounter Details Date Type Department Care Team (Latest Contact Info) Description 2024 Travel Social History Tobacco Use Types Packs/Day Years [...] Date Ralf rded Speak language other than Northern Irish at home Not on file 12/11/2023 Want [...] on file documented as of this encounter Plan of Treatment Upcoming Encounters Date Type Department Care Team (Late st Contact Info) Description 12/28/2024 11:00 AM EST Office Visit [facility] Gastroenterology [address] [place] [address] Christopher Mcghee MD [address] [facility] [address] [place] [address] documented as of this encounter Visit Diagnoses Not on filedocumented in this encounter Care Teams Clinical Investigator Relationship Specialty Start Date End Date Uyen Hines MD [address] [place] [phone] PCP - General Family Medicine 02/11/23 Gee Quan, [place]EL[place] [address] [place] [address] Nurse Practitioner 02/24/23 documented as of this encounter
--- OUTSIDE RECORDS SUMMARY | 2024-10-19 10:49 | XMS_ITS | Encounter Summary ---
Author Organization [email or web address] Address [address] [place] [address] Care Team Providers Care Foxing Cutting Machine Operator Name Role Phone Uyen Hines MD Primary Care Provider [phone] Gee Quan AUTOMOTIVE SERVICE TECHNICIAN Unavailable [phone] Encounter Details Date Type Department Care Team (Latest Contact Info) Description 09/01/2024 Travel Social History Tobacco Use Types Packs/Day [...] Date Ralf rded Speak language other than Bhutanese at home Not on file 12/11/2023 Want [...] Description 12/28/2024 11:00 AM EST Office Visit [facility] Gastroenterology [address] [place] [address] Christopher Mcghee MD [address] [facility] [address] [place] [address] documented as of this encounter Visit Diagnoses Not on filedocumented in this encounter Care Teams Foxing Cutting Machine Operator Relationship Specialty Start Date End Date Uyen Hines MD [address] [place] [phone] PCP - General Family Medicine 02/11/23 Gee Quan, [place]ELIA [address] [place] [address] Nurse Practitioner 02/24/23 documented as of this encounter
--- OUTSIDE RECORDS SUMMARY | 2024-10-19 10:49 | XMS_ITS | Encounter Summary ---
Author Organization [employer] Address [address] [place] [address] Care Team Providers Care Retail Manager In Training Name Role Phone Uyen Hines MD Primary Care Provider [phone] Gee Quan FILBERT GROWER Unavailable [phone] Reason for Visit * Reason Comments General Illness Pt c/o generalized p ain all over her body, abd pain, headache, and states she lost consciousness in the kitchen and passed out. Pt states she thinks she is having an addisons crisis Encounter Details Date Type Department Care Team (Late st Contact Info) Description 09/07/2024 6:24 PM EDT - 09/07/2024 10:16 PM EDT Emergency [facility] Emergency Department [address] [place] [phone] [place] [address] Addisons disease (HCC) (Primary Dx); Stage 3a chronic kidney disease (HCC); Generalized abdominal pain Discharge Disposition: Home or Self Care Social [...] Date Ralf rded Speak language other than Moroccan at home Not on file 12/11/2023 Want [...] on file documented as of this encounter Last Filed Vital Signs Vital Sign Reading [...] Mass Index 38.44 09/07/2024 6:29 PM EDT documented in this encounter Discharge Instructions * Discharge Instructions* Monse Crooks PA-C - 09/07/2024 9:45 PM EDT Follow-up with primary care as needed and make sure to follow-up with wash test checker due to concern acute flareup of Belle Plaine's disease with normal lab work and CT of abdomen. * Attachments The following attachments cannot be sent through Care Everywhere. * Belle Plaine's Disease (Moroccan) * Abdominal Pain Adult Mbwe-pu-Nbin (Moroccan) documented in this encounter Medications at Time of Discharge [...] mg total) by mouth daily. 01/16/2023 pancrelipase, Tzg-Urfn-Gboz, (Creon) 36,000-114,000- 180,000 unit CpDR capsule Take [...] by mouth. documented as of this encounter ED Notes * Monse Crooks PA-C - 09/07/2024 7:24 PM EDT Subjective Chief Complaint: General Illness (Pt c/o generalized pain all over her body, abd pain, headache, and states she lost consciousness in the kitchen and passed out. Pt states she thinks she is having anaddisons crisis) HPI 44-year-old female with multimedical problems as listed on the past medical history presents ED with complaints of a headache, generalized bodyaches, abdominal pain and nausea vomiting. Patient reports onset of symptoms over the last couple of days but has gotten significantly worse today. She reports she stood up out of bed earlier and felt as if she was going to pass out. She has a history of Belle Plaine's and fears she is having an Vance's crisis. She denies any recent illness but recently underwent upper endoscopy last for esophagitis. Patient denies any blurry vision, chest pain or shortness of breath, bloody emesis, changes in bowel habits, urinary complaints. She reports history of constipation, last bowel movement was greater than 5 days ago. All further ROS is negative outside of what is documented above. 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/2023 Past Surgical History: Procedure Laterality Date SECTION CHOLECYSTECTOMY COLONOSCOPY 2021 HYSTERECTOMY INSERTION/REMOVAL,POST-OP PAIN PUMP SHOULDER SURGERY Left x2 TUBAL LIGATION UPPER ENDOSCOPY,BIOPSY N/A 09/01/2024 Procedure: ENDOSCOPY, UPPER GI TRACT, WITH BIOPSY; Surgeon: Christopher Mcghee MD; Location: [facility]; Service: General Surgery; Laterality: N/A; UPPER ENDOSCOPY,DILATATION N/A 02/24/2023 Procedure: EGD, WITH BALLOON DILATION; Surgeon: Christopher Mcghee MD; Location: [facility]; Service: Gastroenterology; Laterality: N/A; UPPER ENDOSCOPY,DILATATION N/A 12/18/2023 Procedure: EGD, WITH BALLOON DILATION; Surgeon: Christopher Mcghee MD; Location: [facility]; Service: Gastroenterology; Laterality: N/A; Family History Problem Relation Age of Onset Heart disease Father Colon cancer Maternal Grandmother Social History Tobacco Use Smoking status: Never Smokeless tobacco: Never Substance Use Topics Alcohol use: Never I reviewed the HPI, ROS and PFSH documentation recorded by others in the medical record and supplemented my note as needed. Review of Systems Review of Systems Constitutional: Positive for fatigue. Gastrointestinal: Positive for abdominal pain, nausea and vomiting. Musculoskeletal: Positive for arthralgias. Neurological: Positive for headaches. All other systems reviewed and are negative. Physical Exam ED Triage Vitals [09/07/24 1829] Enc Vitals Group BP (!) 147/75 Pulse 66 Resp 17 Temp 97.7 ??F (36.5 ??C) Temp src Temporal Art SpO2 98 % Weight 104.8 kg (231 lb) Height 1.651 m (5' 5 ) Head Circumference Peak Flow Pain Score Six Pain Loc Pain Edu? Excl. in GC? Physical Exam Vitals and nursing note reviewed. Constitutional: General: She is not in acute distress. Appearance: Normal appearance. She is normal weight. She is not ill-appearing. HENT: Head: Normocephalic. Mouth/Throat: Mouth: Mucous membranes are moist. Pharynx: Oropharynx is clear. Cardiovascular: Rate and Rhythm: Normal rate and regular rhythm. Pulmonary: Effort: Pulmonary effort is normal. No respiratory distress. Breath sounds: Normal breath sounds. Abdominal: General: Bowel sounds are normal. Palpations: Abdomen is soft. Tenderness: There is abdominal tenderness. There is no right CVA tenderness or left CVA tenderness. Musculoskeletal: Cervical back: Neck supple. Right lower leg: No edema. Left lower leg: No edema. Skin: Capillary Refill: Capillary refill takes less than 2 seconds. Neurological: General: No focal deficit present. Mental Status: She is alert. Mental status is at baseline. Neurologic Exam Ortho Exam ED Course & MDM Medications sodium chloride flush 10 mL (has no administration in time range) morphine injection 4 mg (has no administration in time range) sodium chloride 0.9% (NS) bolus (1,000 mLs intravenous New Bag 09/07/241927) ondansetron PF (ZOFRAN) injection 4 mg (4 mg intravenous Given 09/07/241926) dexamethasone (DECADRON) injection 10 mg (10 mg intravenous Given 09/07/242000) iopamidoL (ISOVUE-300) injection 100 mL (75 mLs intravenous Given 09/07/242057) Results for orders placed or performed during the hospital encounter of 09/07/24 SARS-COV2/RT-PCR Specimen: Nasopharyngeal Swab Result Value Ref Range SARS-COV2/RT-PCR Negative Negative Urinalysis, Reflex Microscopic and Culture If Indicated Result Value Ref Range Color, UA Yellow Clarity, UA Clear Specific [place], UA 1.015 1.002 - 1.030 pH, UA 6.0 5.0 - 9.0 Leukocytes, UA Negative Negative Nitrite, UA Negative Negative Protein, UA Negative Negative Glucose, UA Negative Negative Ketones, UA Negative Negative Bilirubin, UA Negative Negative Blood, UA Negative Negative Urobilinogen, UA 0.2 mg/dL Normal Specimen Source Urine, Clean Catch CBC with Auto Diff Result Value Ref Range WBC 8.8 4.8 - 10.8 K/??L RBC 4.55 3.50 - 5.20 M/??L Hemoglobin 13.2 11.7 - 15.8 GM/DL Hematocrit 40.2 35.0 - 47.0 % MCV 88 81 - 101 fL MCH 29.0 27.0 - 34.0 pg MCHC 32.8 32.0 - 36.0 GM/DL RDW 13.9 11.5 - 14.5 % Platelets 359 150 - 400 K/CU MM MPV 8.7 (L) 9.4 - 12.4 fL Nucleated Red Blood Cell 0.0 0 - 0.2 % % Neutros 44 37 - 80 % % Lymphs 39 10 - 50 % % Monos 11 5 - 13 % % Eos 5 0 - 7 % % Baso 1 0 - 3 % NRBC Absolute <0.01 0 - 0.012 K/ul # Neutros 3.89 2.00 - 6.90 K/??L # Lymphs 3.48 (H) 0.60 - 3.40 K/??L # Monos 0.93 (H) 0.00 - 0.90 K/??L # Eos 0.40 0.00 - 0.70 K/??L # Baso 0.08 0.00 - 0.20 K/??L Immature Granulocytes-Relative 0.60 % # IG 0.05 (H) 0.00 - 0.00 K/uL Comprehensive metabolic panel Result Value Ref Range Sodium 138 136 - 145 meq/L Potassium 4.0 3.5 - 5.1 meq/L Chloride 103 98 - 107 meq/L CO2 29 21 - 32 meq/L Calcium 8.9 8.5 - 10.1 mg/dL Glucose 87 70 - 99 mg/dL BUN 10 7 - 18 mg/dL Creatinine 1.46 (H) 0.55 - 1.10 mg/dL BUN/Creatinine 7 Albumin 3.5 3.4 - 5.0 g/dL Alkaline Phosphatase 74 46 - 116 U/L ALT 13 12 - 78 U/L AST 18 15 - 37 U/L Total Bilirubin 0.4 0.2 - 1.0 mg/dL Protein, Total 7.5 6.4 - 8.2 gm/dL Anion Gap 10 (L) 11 - 22 A/G Ratio 0.9 Globulin 4 g/dL Osmolality Calc 274.1 eGFR (mL/min/1.73m2) 46 (L) >=60 mL/min/1.73m2 Lipase Result Value Ref Range Lipase 29 16 - 77 U/L High Sensitivity Troponin I Result Value Ref Range Troponin I High Sensitivity (pg/mL) <4 (L) 4 - 60.3 pg/mL Magnesium Result Value Ref Range Magnesium 2.1 1.8 - 2.4 mg/dL CT ABDOMEN/PELVIS WITH IV CONTRAST Final Result No acute findings in the abdomen or pelvis to account for the patient's symptoms. Images personally reviewed, interpreted and dictated by Ke Lowery M.D. XR chest 1 view portable / bedside (Results Pending) Procedures Medical Decision Making Labs ordered and reviewed. Normal electrolytes and no concerns with CBC. Patient given IV fluids and steroids for Vance's. CT ordered due to nonlocalized abdomen pain and patient given morphine in ED. CT showed no acute findings. Since patient has normal vitals with normal lab work patient is safe for discharge home. Patient discharged home and instructed to follow-up with wash test checker as soon as possible. Patient instructed to return to the ED if she develops any new symptoms or worseningof her previous symptoms. Problems Addressed: Addisons disease (HCC): chronic illness or injury Generalized abdominal pain: undiagnosed new problem with uncertain prognosis Stage 3a chronic kidney disease (HCC): undiagnosed new problem with uncertain prognosis Amount and/or Complexity of Data Reviewed Labs: ordered. Radiology: ordered. ECG/medicine tests: ordered. Risk Prescription drug management. Assessment & Plan Clinical Impression Diagnosis Comment Added By Time Added Addisons disease (HCC) Monse Crooks PA-C 09/07/2024 9:44 PM Stage 3a chronic kidney disease (HCC) Monse Crooks PA-C 09/07/2024 9:46 PM Disposition Discharge [1] - 09/07/2024 9:53 PM New Prescriptions No medications on file Contact information for follow-up Uyen Hines MD Specialty: Family Medicine Relationship: PCP - General [address] [phone] Next Steps: Go in 1 day(s) Instructions: If symptoms worsen Kajal Smith MD [address] [phone] Next Steps: Go in 1 day(s) Instructions: Due to concern for acute flareup of Belle Plaine's disease with normal lab work and CT of abdomen documented in this encounter Plan of Treatment Upcoming Encounters Date Type Department Care Team (Late st Contact Info) Description 12/28/2024 11:00 AM EST Office Visit [facility] Gastroenterology [address] [place] [address] Christopher Mcghee MD [address] [place] [address] documented as of this encounter Procedures Procedure Name Priority Date/Time Associated Diagnosis Comments CT ABDOMEN/PELVIS WITH IV CONTRAST STAT 09/07/2024 8:56 PM EDT XR CHEST 1 VIEW PORTABLE / BEDSIDE STAT 09/07/2024 7:39 PM EDT URINALYSIS, REFLEX MICROSCOPIC AND CULTURE IF INDICATED STAT 09/07/2024 7:20 PM EDT SARS-COV2 PCR (COVID 19) STAT 09/07/2024 7:16 PM EDT CBC W/ AUTO DIFF STAT 09/07/2024 7:15 PM EDT HIGH SENSITIVITY TROPONIN I STAT 09/07/2024 7:15 PM EDT MAGNESIUM Add-On 09/07/2024 7:15 PM EDT LIPASE STAT 09/07/2024 7:15 PM EDT COMPREHENSIVE METABOLIC PANEL STAT 09/07/2024 7:15 PM EDT FS_MODEL_IP_ECG 12-LEAD STAT 09/07/2024 7:05 PM EDT documented in this encounter Results * CT ABDOMEN/PELVIS WITH IV CONTRAST (09/07/2024 [...] and dictated by Ke Lowery M.D. Artem AGUILAR-Isabel IMG CT ORDERABLES Final Res ult * XR [...] by Ke Lowery M.D. Artem Berry PA-C IM DIAGNOSTIC IMAGING [facility] Final Result * Urinalysis, Reflex Microscopic and Culture If Indicated (09/07/2024 7:20 PM EDT) Color, UA Yellow 09/07/2024 7:41 PM EDT [facility] Clarity, UA Clear 09/07/2024 7:41 PM EDT [facility] Specific [place], UA 1.015 1.002 - 1.030 09/07/2024 7:41 PM EDT [facility] pH, UA 6.0 5.0 - 9.0 09/07/2024 7:41 PM EDT [facility] Leukocytes, UA Negative Negative 09/07/2024 7:41 PM EDT [facility] Nitrite, UA Negative Negative 09/07/2024 7:41 PM EDT [facility] Protein, UA Negative Negative 09/07/2024 7:41 PM EDT [facility] Glucose, UA Negative Negative 09/07/2024 7:41 PM EDT [facility] Ketones, UA Negative Negative 09/07/2024 7:41 PM EDT [facility] Bilirubin, UA Negative Negative 09/07/2024 7:41 PM EDT [facility] Blood, UA Negative Negative 09/07/2024 7:41 PM EDT [facility] Urobilinogen, UA 0.2 mg/dL Normal 09/07/2024 7:41 PM EDT [facility] Specimen Source Urine, Clean Catch 09/07/2024 7:41 PM EDT [facility] Urine URINE SPECIMEN COLLECTION, CLEAN CATCH / Unknown 09/07/2024 7:20 PM EDT 09/07/2024 7:32 PM EDT us Casabua Jamal PA-C URINE ORDERABLES Final Resu lt Performing Organization Address City/[facility]/ZIP Co de Phone Number [facility] [address] [place] [address] * SARS-COV2/RT-PCR (09/07/2024 7:16 PM EDT) SARS-COV2/RT-P CR Negative Negative DEVICE [id number] 09/07/2024 7:56 PM EDT [facility] Nasopharyngeal NASOPHARYNGEAL SWAB / Unknown 09/07/2024 7:16 PM EDT 09/07/2024 7:24 PM EDT Narrative [facility] - 09/07/2024 7:56 PM EDT Testing [...] performed according to the current CDC recommendations. us [email or web address] Jamal PA-C MICROBIOLOGY - GENERAL ORDE RABLES Final Result Performing Organization Address City/[facility]/ZIP Co de Phone Number [facility] [address] [place] [address] * Magnesium (09/07/2024 7:15 PM EDT) [facility] Magnesium 2.1 1.8 - 2.4 mg/dL 09/07/2024 9:31 PM EDT [facility] Blood ENTIRE LEFT UPPER ARM / Unknown Venipuncture / Unknown 09/07/2024 7:15 PM EDT 09/07/2024 7:26 PM EDT Monse Crooks PA-C LAB BLOOD ORDERABLES Final Resu lt Performing Organization Address City/[facility]/ZIP Co de Phone Number [facility] [address] [place] [address] * (ABNORMAL) High Sensitivity Troponin I (09/07/2024 7:15 PM EDT) [facility] Troponin I High Sensitivity (pg/mL) <4(L) 4 - 60.3 pg/mL 09/07/2024 8:01 PM EDT [facility] Comment: Troponin Result (pg/mL) ??*Interpretation 4-60.3 [...] BLOOD ORDERABLES Final Result Performing Organization Address City/[facility]/ZIP Co de Phone Number [facility] [address] [place] [address] * Lipase (09/07/2024 7:15 PM EDT) Lipase 29 16 - 77 U/L 09/07/2024 8:01 PM EDT [facility] Blood ENTIRE LEFT UPPER ARM / Unknown Venipuncture / Unknown 09/07/2024 7:15 PM EDT 09/07/2024 7:26 PM EDT Artem Berry PA-C LAB BLOOD ORDERABLES Final Result [facility] [address] [phone] * (ABNORMAL) Comprehensive metabolic panel (09/07/2024 7:15 PM EDT) Pathologist [facility] Sodium 138 136 - 145 meq/L 09/07/2024 8:01 PM EDT [facility] Potassium 4.0 3.5 - 5.1 meq/L 09/07/2024 8:01 PM EDT [facility] Chloride 103 98 - 107 meq/L 09/07/2024 8:01 PM EDT [facility] CO2 29 21 - 32 meq/L 09/07/2024 8:01 PM EDT [facility] Calcium 8.9 8.5 - 10.1 mg/dL 09/07/2024 8:01 PM EDT [facility] Glucose 87 70 - 99 mg/dL 09/07/2024 8:01 PM EDT [facility] BUN 10 7 - 18 mg/dL 09/07/2024 8:01 PM EDT [facility] Creatinine 1.46(H) 0.55 - 1.10 mg/dL 09/07/2024 8:01 PM EDT [facility] BUN/Creatinine 7 09/07/2024 8:01 PM EDT [facility] Albumin 3.5 3.4 - 5.0 g/dL 09/07/2024 8:01 PM EDT [facility] Alkaline Phosphatase 74 46 - 116 U/L 09/07/2024 8:01 PM EDT [facility] ALT 13 12 - 78 U/L 09/07/2024 8:01 PM EDT [facility] AST 18 15 - 37 U/L 09/07/2024 8:01 PM EDT [facility] Total Bilirubin 0.4 0.2 - 1.0 mg/dL 09/07/2024 8:01 PM EDT [facility] Protein, Total 7.5 6.4 - 8.2 gm/dL 09/07/2024 8:01 PM EDT [facility] Anion Gap 10(L) 11 - 22 09/07/2024 8:01 PM EDT [facility] A/G Ratio 0.9 09/07/2024 8:01 PM EDT [facility] Globulin 4 g/dL 09/07/2024 8:01 PM EDT [facility] Osmolality Calc 274.1 8:01 PM EDT [facility] eGFR (mL/min/1.73m2) 46(L) >=60 mL/min/1.7 3m2 09/07/2024 8:01 PM EDT [facility] Comment:ESTIMATED GFR IS NOT ACCURATE CREATININE CLEARANCE IN PREDICTING GLOMERULAR FILTRATION RATE. ESTIMATED GFR IS NOT APPLICABLE FOR DIALYSIS PATIENTS. Blood ENTIRE LEFT UPPER ARM / Unknown Venipuncture / Unknown 09/07/2024 7:15 PM EDT 09/07/2024 7:26 PM EDT us Artem Berry PA-C LAB BLOOD ORDERABLES Final Result [facility] [address] [place] [id number] [phone] * (ABNORMAL) CBC with Auto Diff (09/07/2024 7:15 PM EDT) WBC 8.8 4.8 - 10.8 K/??L 09/07/2024 7:31 PM EDT [facility] RBC 4.55 3.50 - 5.20 M/??L 09/07/2024 7:31 PM EDT [facility] Hemoglobin 13.2 11.7 - 15.8 GM/DL 09/07/2024 7:31 PM EDT [facility] Hematocrit 40.2 35.0 - 47.0 % 09/07/2024 7:31 PM EDT [facility] MCV 88 81 - 101 fL 09/07/2024 7:31 PM EDT [facility] MCH 29.0 27.0 - 34.0 pg 09/07/2024 7:31 PM EDT [facility] MCHC 32.8 32.0 - 36.0 GM/DL 09/07/2024 7:31 PM EDT [facility] RDW 13.9 11.5 - 14.5 % 09/07/2024 7:31 PM EDT [facility] Platelets 359 150 - 400 K/CU MM 09/07/2024 7:31 PM EDT [facility] MPV 8.7(L) 9.4 - 12.4 fL 09/07/2024 7:31 PM EDT [facility] Nucleated Red Blood Cell 0.0 0 - 0.2 % 09/07/2024 7:31 PM EDT [facility] % Neutros 44 37 - 80 % 09/07/2024 7:31 PM EDT [facility] % Lymphs 39 10 - 50 % 09/07/2024 7:31 PM EDT [facility] % Monos 11 5 - 13 % 09/07/2024 7:31 PM EDT [facility] % Eos 5 0 - 7 % 09/07/2024 7:31 PM EDT [facility] % Baso 1 0 - 3 % 09/07/2024 7:31 PM EDT [facility] NRBC Absolute <0.01 0 - 0.012 K/ul 09/07/2024 7:31 PM EDT [facility] # Neutros 3.89 2.00 - 6.90 K/??L 09/07/2024 7:31 PM EDT [facility] # Lymphs 3.48(H) 0.60 - 3.40 K/??L 09/07/2024 7:31 PM EDT [facility] # Monos 0.93(H) 0.00 - 0.90 K/??L 09/07/2024 7:31 PM EDT [facility] # Eos 0.40 0.00 - 0.70 K/??L 09/07/2024 7:31 PM EDT [facility] # Baso 0.08 0.00 - 0.20 K/??L 09/07/2024 7:31 PM EDT [facility] Immature Granulocytes-Re lative 0.60 % 09/07/2024 7:31 PM EDT [facility] # IG 0.05(H) 0.00 - 0.00 K/uL 09/07/2024 7:31 PM EDT [facility] Blood ENTIRE LEFT UPPER ARM / Unknown Venipuncture / Unknown 09/07/2024 7:15 PM EDT 09/07/2024 7:26 PM EDT Narrative [facility] - 09/07/2024 7:31 PM EDT When [...] Blast? Flag noted Atypical Lymph flag noted us Artem Berry PA-C LAB BLOOD ORDERABLES Final Result [facility] [address], [place] [address] [phone] * ECG 12 lead (09/07/2024 7:05 PM EDT) VENTRICULAR RATE EKG/MIN 63 BPM GE MUSE ATRIAL RATE (MCT) 63 BPM GE MUSE ND Interval 152 ms GE MUSE QRS-INTERVAL (MSEC) 84 ms GE MUSE QT Interval 412 ms GE MUSE QTC Interval 421 ms GE MUSE P [place] 33 degrees GE MUSE R AXIS (MCT) 9 degrees GE MUSE T Wave [place] -4 degrees GE MUSE [employer] Diagnosis Normal sinus rhythm Minimal voltage criteria for LVH, may be normal variant ( R in aVL ) Borderline ECG No previous ECGs available Confirmed by Josias SR RICHARD ([id number]) on 09/08/2024 5:03:41 PM GE MUSE 09/07/2024 7:05 PM EDT 09/08/2024 5:03 PM EDT us Artem Berry PA-C ECG ORDERABLES Final Resul t GE MUSE documented in this encounter Visit Diagnoses Diagnosis Addisons disease (HCC)- Primary Glucocorticoid deficiency Addisons disease (HCC) Glucocorticoid deficiency Stage 3a chronic kidney disease (HCC) Generalized abdominal pain Abdominal pain, generalized Generalized abdominal pain Abdominal pain, generalized documented in this encounter Administered Medications Inactive Administered Medications - up to 3 most recent administrations Medication Order MAR Action Action Date Dose Rate Site dexamethasone (DECADRON) injection 10 mg 10 mg Once, intravenous, On Fri09/07/24 at 1950, For 1 dose Given 09/07/2024 8:01 PM EDT 10 mg Left Arm iopamidoL (ISOVUE-300) injection 100 mL 100 mL Once, intravenous, On Fri09/07/24 at 2100, For 1 dose, Intra-op Given 09/07/2024 8:58 PM EDT 75 mLs morphine injection 4 mg 4 mg Once, intravenous, On Fri09/07/24 at 2155, For 1 dose Given 09/07/2024 10:06 PM EDT 4 mg Right Arm ondansetron PF (ZOFRAN) injection 4 mg 4 mg Once, intravenous, On Fri09/07/24 at 1855, For 1 dose, For IV push, give over 2 - 5 minutes. Given 09/07/2024 7:27 PM EDT 4 mg sodium chloride 0.9% (NS) bolus 1,000 mL Once, intravenous, Administer over 60 Minutes, On 10/15/24 at 1855, For 1 dose New Bag 09/07/2024 7:28 PM EDT 1,000 mLs 1000 mL/hr sodium chloride flush 10 mL 10 mL As needed, intravenous, line care, Line care for flush, Starting on Fri09/07/24 at 1848, For 30 doses documented in this encounter Active and Recently Administered Medications Times are shown in EDT. Scheduled Medication Order 09/05/2024 09/06/2024 09/07/2024 dexamethasone (DECADRON) injection 10 mg (COMPLETED) 10 mg Once, intravenous, On Fri09/07/24 at 1950, For 1 dose 2000 (Given - Provid er: Petar Louie) iopamidoL (ISOVUE-300) injection 100 mL (COMPLETED) 100 mL Once, intravenous, On Fri09/07/24 at 2100, For 1 dose, Intra-op 2057 (Given - Provid er: Stacy Celaya) morphine injection 4 mg (COMPLETED) 4 mg Once, intravenous, On Fri09/07/24 at 2155, For 1 dose 2205 (Given - Provid er: Petar Louie) ondansetron PF (ZOFRAN) injection 4 mg (COMPLETED) 4 mg Once, intravenous, On e 09/07/24 at 1855, For 1 dose, For IV push, give over 2 - 5 minutes. 1926 (Given - Provid er: Lorenzo Coats) sodium chloride 0.9% (NS) bolus (COMPLETED) 1,000 mL Once, intravenous, Administer over 60 Minutes, On e 09/07/24 at 1855, For 1 dose 1927 (New Bag - Prov ider: Lorenzo Coats)2214 (Stopped - Provider: Petar Louie) PRN Medication Order 09/05/2024 09/06/2024 09/07/2024 sodium chloride flush 10 mL 10 mL As needed, intravenous, line care, Line care for flush, Starting on Fri09/07/24 at 1848, For 30 doses documented in this encounter Care Teams Retail Manager In Training Relationship Specialty Start Date End Date Uyen Hines MD [address] [place] [phone] PCP - General Family Medicine 02/11/23 Gee Quan APRN [address] [place] [address] Nurse Practitioner 02/24/23 documented as of this encounter
--- OUTSIDE RECORDS SUMMARY | 2024-10-19 10:49 | XMS_ITS | Encounter Summary ---
Author Organization [employer] Address [address] [place] [address] Care Team Providers Care Revenue Liaison Name Role Phone Uyen Hines MD Primary Care Provider [phone] Gee Quan BUCKLE INSPECTOR Unavailable [phone] Reason for Referral * Nuclear Medicine (Routine) - Closed Specialty Diagnoses / Procedures Referred By Contac t Referred To Contact Radiology Diagnoses Generalized abdominal pain Weight loss, unintentional Constipation, unspecified constipation type Elevated fecal calprotectin Common bile duct dilation Dysphagia, unspecified type Diarrhea, unspecified type Procedures NM GASTRIC EMPTYING STUDY Christopher Mcghee MD [address] [facility] [address] [place] [address] Phone: tel: fax: [facility] Nuclear Medicine [address] [place] [address] Phone: tel: fax: Referral ID Status Reason Start Date Expiration Date Visits Re quested Visits Authorized [id number] Closed 09/15/2024 11/14/2024 1 1 Encounter Details Date Type Department Care Team (Late st Contact Info) Description 09/20/2024 Orders Only [facility] Gastroenterology [address] [place] [address] Christopher Mcghee MD [address] [facility] [address] [place] [address] Generalized abdominal pain (Primary Dx); Weight loss, unintentional; Constipation, unspecified constipation type; Elevated fecal calprotectin; Common bile duct dilation; Dysphagia, unspecified type; Diarrhea, unspecified type Social History Tobacco Use Types Packs/Day Years [...] Date Ralf rded Speak language other than Nigerien at home Not on file 12/11/2023 Want [...] Description 12/28/2024 11:00 AM EST Office Visit [facility] Gastroenterology [address] [place] [address] Christopher Mcghee MD [address] [place] [address] [address] [place] [address] documented as of this encounter Results * NM GASTRIC EMPTYING [...] this encounter Visit Diagnoses Diagnosis Generalized abdominal pain- Primary Abdominal pain, generalized Weight loss, unintentional Loss of weight Constipation, unspecified constipation type Elevated fecal calprotectin Common bile duct dilation Dysphagia, unspecified type Diarrhea, unspecified type Generalized abdominal pain Abdominal pain, generalized Weight loss, unintentional Loss of weight Constipation, unspecified constipation type Elevated fecal calprotectin Common bile duct dilation Dysphagia, unspecified type Diarrhea, unspecified type documented in this encounter Care Teams Revenue Liaison Relationship Specialty Start Date End Date Uyen Hines MD [address] [place] [address] PCP - General Family Medicine 02/11/23 Gee Quan APRN [address] [place] [address] Nurse Practitioner 02/24/23 documented as of this encounter
--- OUTSIDE RECORDS SUMMARY | 2024-10-19 10:49 | XMS_ITS | Encounter Summary ---
Author Organization [employer] Address [address] [place] [address] Care Team Providers Care Supervisor Order Takers Name Role Phone Uyen Hines MD Primary Care Provider [phone] Gee Quan MOLD MAKER HELPER Unavailable [phone] Reason for Visit * Auth/Cert (Routine) Specialty Diagnoses / Procedures Referred By Christopher yuan Referred To Contact Diagnoses Dysphagia Dysphagia, EOE Procedures TX ESOPHAGOGASTRODUODENOSCOPY TRANSORAL DIAGNOSTIC TX EGD TRANSORAL BIOPSY SINGLE/MULTIPLE TX EGD BALLOON DILATION ESOPHAGUS <30 MM DIAM TX EGD REMOVAL TUMOR POLYP/OTHER LESION SNARE TECH EGD (ESOPHAGOGASTRODUODENOSCOPY) [facility] Endoscopy [address] [place] [address] Phone: tel: fax: [facility] Endoscopy [address] [place] [address] Phone: tel: fax: Referral ID Status Reason Start Date Expiration Date Visits Re quested Visits Authorized [id number] 1 1 Encounter Details Date Type Department Care Team (Late st Contact Info) Description 09/01/2024 7:34 AM EDT Anesthesia Event [facility] Endoscopy [address] [place] [address] Juan Adam CRNA [address] [place] [address] Louie French MD [address] [id number] Anesthesia Record Procedure Summary Procedure Name Responsible Anesthesiologist Anesthesia Start Time Anesthesia Stop Time ENDOSCOPY, UPPER GI TRACT, WITH BIOPSY Juan Adam, CHAY 09/01/24 0734 09/01/24 0751 Events Date Time Event Comment 09/01/2024 0704 0734 An Start Patient identif ied and chart reviewed. 0736 An Start Data Anesthesia mac leigh and monitors checked. 0740 Pre-Induction Eval FDA anest hesia machine pre-use checkout completed. Patient status reassessed prior to start of anesthesia care. 0740 Anesthesia Ready 0745 an stop data 0746 Handoff to Receiving I compl eted my handoff to the receiving clinician during which we: 1. Identified the patient. 2. Identified the responsible provider. 3. Reviewed the pertinent medical history. 4. Discussed the surgical course. 5. Reviewed intra-op anesthesia management and issues during anesthesia. 6. Set expectations for post-procedure period. 7. Allowed opportunity for questions and acknowledgement of understanding. 0751 An Stop Meds Name Total fentaNYL (SUBLIMAZE) injection 100 mcg lidocaine (XYLOCAINE) injection 2% 100 m g propofol (DIPRIVAN) injection 10 mg/mL b olus 100 mg * Agents Name Auxiliary O2 O2 N2O Air * Blood No blood administrations on file. Lines, Drains, and Airways Type Details Placement Removal Peripheral IV Placement Date: 09/01/24; Placement Time: 713; Size: 20 G; Orientation: Anterior, Right; Inserted by: Josee LAU; Insertion attempts: 1; Removal Date: 09/01/24; Removal Time: 07509/01/24 07 by Josee Barbosa RN 09/01/24 075 by Ofelia Lucas RN documented in this encounter Social History Tobacco Use Types Packs/Day Years [...] Date Ralf rded Speak language other than Palauan at home Not on file 12/11/2023 Want [...] on file documented as of this encounter OR Notes * Anesthesia Postprocedure Evaluation - Juan Adam CRNA - 09/01/2024 7:51 AM EDT Patient: Tessie Roa Procedure Summary Date: 09/01/24 Room / Location: [facility] ENDO 01 / [facility] Anesthesia Start: 733 Anesthesia Stop: Procedure: ESOPHAGOGASTRODUODENOSCOPY (EGD) Diagnosis: Dysphagia (Dysphagia, EOE) Surgeons: Christopher Mcghee MD Responsible Provider: Juan Adam CRNA Anesthesia Type: general ASA Status: 3 Anesthesia Type: general Vitals Value Taken Time BP 103/60 09/01/24 0750 Temp 97.7 ??F (36.5 ??C) 09/01/24 0746 Pulse 60 09/01/24 0750 Resp 20 09/01/24 0750 SpO2 100 % 09/01/24 0750 Vitals shown include unvalidated device data. Ht 1.651 m (5' 5 ) Wt 100.2 kg (221 lb) BMI 36.78 kg/m?? Anesthesia Post Evaluation Patient location during evaluation: PACU Patient participation: complete - patient participated Level of consciousness: sleepy but conscious Pain score: 0 Pain management: adequate Multimodal analgesia pain management approach Airway patency: patent Two or more strategies used to mitigate risk of obstructive sleep apnea Cardiovascular status: stable and hemodynamically stable Respiratory status: nasal cannula Hydration status: stable Color: Durbin Activity: Moves 4 extremities Inotropes/Vasopressors: N/A No notable events documented. Juan Adam CRNA 09/01/2024 7:51 AM EDT * Anesthesia Preprocedure Evaluation - Louie French MD - 09/01/2024 7:01 AM EDT Anesthesia Pre Evaluation Ms. Tessie Roa is a 44 y.o. female being evaluated for the following: Date/Time: 09/01/24729 Procedure: ESOPHAGOGASTRODUODENOSCOPY (EGD) Location: [facility] 01 / [facility] Surgeons: Christopher Mcghee MD Relevant Problems ANESTHESIA (+) SANJU (obstructive sleep apnea) (-) History of anesthesia complications CARDIOVASCULAR (+) CHF (congestive heart failure) (HCC) (+) Hypertension ENDOCRINE (+) Hypothyroid GASTROINTESTINAL (+) Gastroesophageal reflux disease /RENAL (+) CKD (chronic kidney disease), stage III (HCC) (+) Chronic renal insufficiency NEURO/PSYCH (+) Anxiety (+) Depression (+) Migraines (+) Stroke (cerebrum) (HCC) Clinical information reviewed: NPO Status No data recorded Physical Exam Airway Mallampati: I TM distance: >3 FB Neck ROM: full Cardiovascular Rhythm: regular Rate: normal Dental (+) upper dentures, lower dentures Pulmonary - normal exam Breath sounds clear to auscultation Abdominal - normal exam Anesthesia Plan ASA 3 Planned anesthetic: general Anesthesia Plan Factors- The patient is not a current smoker. Patient was not previously instructed to abstain from smoking on day of procedure. Patient did not smoke on day of procedure. Induction: intravenous Informed Consent- Anesthetic plan and risks discussed with patient. Blood Consent- Use of blood products discussed with patient who consented to blood products. Plan discussed with CORPORATE LEGAL ASSISTANT. documented in this encounter Plan of Treatment Upcoming Encounters Date Type Department Care Team (Late st Contact Info) Description 12/28/2024 11:00 AM EST Office Visit [facility] Gastroenterology [address] [place] [address] Christopher Mcghee MD [address] [facility] [address] [place] [address] documented as of this encounter Visit Diagnoses Not on filedocumented in this encounter Administered Medications Inactive Administered Medications - up to 3 most recent administrations Medication Order MAR Action Action Date Dose Rate Site fentaNYL PF (SUBLIMAZE) injection As needed, intravenous, Starting on Fri09/01/24 at 0733, Anesthesia Intra-op Given 09/01/2024 7:40 AM EDT 50 mcg Given 09/01/2024 7:33 AM EDT 50 mcg lidocaine (XYLOCAINE) injection 2% As needed, intravenous, Starting on Fri09/01/24 at 0740, Anesthesia Intra-op Given 09/01/2024 7:40 AM EDT 100 mg propofol (DIPRIVAN) injection 10 mg/mL bolus As needed, intravenous, Starting on Fri09/01/24 at 0740, Anesthesia Intra-op Given 09/01/2024 7:40 AM EDT 100 mg documented in this encounter Care Teams Supervisor Order Takers Relationship Specialty Start Date End Date Uyen Hines MD [address] [place] [address] PCP - General Family Medicine 02/11/23 Gee Quan APRN [address] [place] [address] Nurse Practitioner 02/24/23 documented as of this encounter
--- OUTSIDE RECORDS SUMMARY | 2024-10-19 10:49 | XMS_ITS | Encounter Summary ---
Author Organization [employer] Address [address] [place] [address] Care Team Providers Care Rn Observation Name Role Phone Uyen Hines MD Primary Care Provider [phone] Gee Quan SPECIALTY COOK Unavailable [phone] Reason for Referral * Nuclear Medicine (Routine) - Canceled Specialty Diagnoses / Procedures Referred By Contac t Referred To Contact Radiology Diagnoses Generalized abdominal pain Weight loss, unintentional Constipation, unspecified constipation type Elevated fecal calprotectin Common bile duct dilation Procedures NM GASTRIC EMPTYING STUDY Christopher Mcghee MD [address] [facility] [address] [place] [address] Phone: tel: fax: [facility] Nuclear Medicine [address] [place] [address] Phone: tel: fax: Referral ID Status Reason Start Date Expiration Date V isits Requested Visits Authorized [id number] Canceled 12/14/2024 12/14/2025 1 1 Encounter Details Date Type Department Care Team (Late st Contact Info) Description 09/02/2024 Orders Only [facility] Gastroenterology [address] [place] [address] Christopher Mcghee MD [address] [facility] [address] [place] [address] Generalized abdominal pain (Primary Dx); Weight loss, unintentional; Constipation, unspecified constipation type; Elevated fecal calprotectin; Common bile duct dilation Social History Tobacco Use Types Packs/Day Years [...] Date Ralf rded Speak language other than Belarusian at home Not on file 12/11/2023 Want [...] Description 12/28/2024 11:00 AM EST Office Visit [facility] Gastroenterology [address] [place] [address] Christopher Mcghee MD [address] [facility] [address] [place] [address] documented as of this encounter Visit Diagnoses Diagnosis Generalized abdominal pain- Primary Abdominal pain, generalized Weight loss, unintentional Loss of weight Constipation, unspecified constipation type Elevated fecal calprotectin Common bile duct dilation documented in this encounter Care Teams Rn Observation Relationship Specialty Start Date End Date Uyen Hines MD [address] [place] [phone] PCP - General Family Medicine 02/11/23 Gee Quan APRN [address] [place] [address] Nurse Practitioner 02/24/23 documented as of this encounter
--- OUTSIDE RECORDS SUMMARY | 2024-10-19 10:49 | XMS_ITS | Encounter Summary ---
Author Organization [employer] Address [address] [place] [address] Care Team Providers Care Crystal Growing Technician Name Role Phone Uyen Hines MD Primary Care Provider [phone] Gee Quan CEMENT DESPATCH OPERATOR Unavailable [phone] Reason for Visit * Reason Onset Date Comments 0 09/17/2024 Encounter Details Date Type Department Care Team (Late st Contact Info) Description 09/17/2024 Telephone [facility] Gastroenterology [address] [place] [address] Christopher Mcghee MD [address] [place] [address] 0 Social History Tobacco Use Types Packs/Day Years [...] Date Ralf rded Speak language other than Jamaican at home Not on file 12/11/2023 Want [...] on file documented as of this encounter Miscellaneous Notes * Telephone Encounter - Margaretzakia Nathan - 09/17/2024 2:35 PM EDT Patient called and said she had to cancel her gastro emptying study because she was sick and needs to re-ernst but hospital told her she needed a new order put in for it. documented in this encounter Plan of Treatment Upcoming Encounters Date Type Department Care Team (Late st Contact Info) Description 12/28/2024 11:00 AM EST Office Visit [facility] Gastroenterology [address] [place] [address] Christopher Mcghee MD [address] [facility] [address] [place] [address] documented as of this encounter Visit Diagnoses Not on filedocumented in this encounter Care Teams Crystal Growing Technician Relationship Specialty Start Date End Date Uyen Hines MD [address] [place] [address] PCP - General Family Medicine 02/11/23 Gee Quan APRN [address] [place] [address] Nurse Practitioner 02/24/23 documented as of this encounter
--- OUTSIDE RECORDS SUMMARY | 2024-10-19 10:49 | XMS_ITS | Encounter Summary ---
Author Organization [employer] Address [address] [place] [address] Care Team Providers Care Deli/Bakery Associate Name Role Phone Uyen Hines MD Primary Care Provider [phone] Gee Quan NAVAL AIRCREWMAN OPERATOR Unavailable [phone] Encounter Details Date Type Department Care Team (Latest Contact Info) Description 09/27/2024 Travel Social History Tobacco Use Types Packs/Day [...] Date Ralf rded Speak language other than Polish at home Not on file 12/11/2023 Want [...] Description 12/28/2024 11:00 AM EST Office Visit [facility] Gastroenterology [address] [place] [address] Christopher Mcghee MD [address] [facility] [address] [place] [address] documented as of this encounter Visit Diagnoses Not on filedocumented in this encounter Care Teams Deli/Bakery Associate Relationship Specialty Start Date End Date Uyen Hines MD [address] [place] [address] PCP - General Family Medicine 02/11/23 Gee Quan, CAMELIA [address] [place] [address] Nurse Practitioner 02/24/23 documented as of this encounter
--- OUTSIDE RECORDS SUMMARY | 2024-10-19 10:49 | XMS_ITS | Encounter Summary ---
Author Organization [employer] Address [address] [place] [address] Care Team Providers Care Candle Wrapper Name Role Phone Uyen Hines MD Primary Care Provider [phone] Gee Quan DYNAMO TENDER Unavailable [phone] Encounter Details Date Type Department Care Team (Latest Contact Info) Description 09/13/2024 Travel Social History Tobacco Use Types Packs/Day [...] Date Ralf rded Speak language other than Honduran at home Not on file 12/11/2023 Want [...] Description 12/28/2024 11:00 AM EST Office Visit [facility] Gastroenterology [address] [place] [address] Christopher Mcghee MD [address] [facility] [address] [place] [address] documented as of this encounter Visit Diagnoses Not on filedocumented in this encounter Care Teams Candle Wrapper Relationship Specialty Start Date End Date Uyen Hines MD [address] [place] [phone] PCP - General Family Medicine 02/11/23 Gee Quan, CAMELIA [address] [place] [address] Nurse Practitioner 02/24/23 documented as of this encounter
--- OUTSIDE RECORDS SUMMARY | 2024-10-19 10:49 | XMS_ITS | Encounter Summary ---
Author Organization [employer] Address [address] [place] [address] Care Team Providers Care Screw Eye Assembler Name Role Phone Uyen Hines MD Primary Care Provider [phone] Gee Quan CEMENT SIDE LASTER Unavailable [phone] Encounter Details Date Type Department Care Team (Latest Contact Info) Description 09/16/2024 Travel Social History Tobacco Use Types Packs/Day [...] Date Ralf rded Speak language other than Filipino at home Not on file 12/11/2023 Want [...] Description 12/28/2024 11:00 AM EST Office Visit [facility] Gastroenterology [address] [place] [address] Christopher Mcghee MD [address] [facility] [address] [place] [address] documented as of this encounter Visit Diagnoses Not on filedocumented in this encounter Care Teams Screw Eye Assembler Relationship Specialty Start Date End Date Uyen Hines MD [address] [place] [phone] PCP - General Family Medicine 02/11/23 Gee Quan, CAMELIA [address] [place] [address] Nurse Practitioner 02/24/23 documented as of this encounter
--- OUTSIDE RECORDS SUMMARY | 2024-10-19 10:49 | XMS_ITS | Encounter Summary ---
Author Organization [employer] Address [address] [place] [address] Care Team Providers Care Journeyman Patternmaker Name Role Phone Uyen Hines MD Primary Care Provider [phone] Gee Quan AUTOMOTIVE ELECTRICAL HELPER Unavailable [phone] Encounter Details Date Type Department Care Team (Latest Contact Info) Description 09/07/2024 Travel Social History Tobacco Use Types Packs/Day [...] Date Ralf rded Speak language other than Cayman Islander at home Not on file 12/11/2023 Want [...] Description 12/28/2024 11:00 AM EST Office Visit [facility] Gastroenterology [address] [place] [address] Christopher Mcghee MD [address] [facility] [address] [place] [address] documented as of this encounter Visit Diagnoses Not on filedocumented in this encounter Care Teams Journeyman Patternmaker Relationship Specialty Start Date End Date Uyen Hines MD [address] [place] [phone] PCP - General Family Medicine 02/11/23 Gee Quan, CAMELIA [address] [place] [address] Nurse Practitioner 02/24/23 documented as of this encounter
--- OUTSIDE RECORDS SUMMARY | 2024-10-19 10:49 | XMS_ITS | Encounter Summary ---
Author Organization [employer] Address [address] [place] [address] Care Team Providers Care Cardiovascular Surgical Tech Name Role Phone Uyen Hines MD Primary Care Provider [phone] Gee Quan SALES FACILITATOR Unavailable Reason for Visit * Auth/Cert (Routine) Specialty Diagnoses / Procedures Referred By Christopher yuan Referred To Contact Diagnoses Dysphagia Dysphagia, EOE Procedures OH ESOPHAGOGASTRODUODENOSCOPY TRANSORAL DIAGNOSTIC OH EGD TRANSORAL BIOPSY SINGLE/MULTIPLE OH EGD BALLOON DILATION ESOPHAGUS <30 MM DIAM OH EGD REMOVAL TUMOR POLYP/OTHER LESION SNARE TECH EGD (ESOPHAGOGASTRODUODENOSCOPY) [facility] [address] [place] [address] Phone: tel: fax: [facility] [address] [place] [address] Phone: tel: fax: Referral ID Status Reason Start Date Expiration Date Visits Re quested Visits Authorized [id number] 1 1 Encounter Details Date Type Department Care Team (Latest Contact Info) Description 09/01/2024 6:52 AM EDT - 09/01/2024 8:23 AM EDT Hospital Encounter [facility] [address] [place] [address] Galen Alvarenga MD [address] [facility] [address] [place] [id number] Dysphagia Discharge Disposition: Home or Self Care Social [...] Date Ralf rded Speak language other than Icelandic at home Not on file 12/11/2023 Want [...] Sign Reading Time Taken Comments Blood Pressure 119/70 09/01/2024 8:16 AM EDT Pulse 62 09/01/2024 8:16 AM EDT Temperature 36.5 ??C (97.7 ??F) 09/01/2024 7:46 AM ED T Respiratory Rate 12 09/01/2024 8:16 AM EDT Oxygen Saturation 98% 09/01/2024 8:16 AM EDT Inhaled Oxygen Concentration - - Weight 100.2 kg (221 lb) 09/01/2024 7:05 AM EDT Height 165.1 cm (5' 5 ) 09/01/2024 7:05 AM EDT Body Mass Index 36.78 09/01/2024 7:05 AM EDT documented in this encounter Medications at Time [...] mg total) by mouth daily. 01/16/2023 pancrelipase, Vax-Ebxi-Gsgs, (Creon) 36,000-114,000- 180,000 unit CpDR capsule Take [...] by mouth. documented as of this encounter H&P Notes * Galen Alvarenga MD - 09/01/2024 7:16 AM EDT Gastroenterology Follow up Subjective: No chief complaint on file. Tommy Page is a 44 y.o. female Hx of EOE. Started Dupixent 10/2023 Last EGD 12/2023 showed Esophagitis and small hiatal hernia were present. One benign appearing intrinsic mild stenosis was found and dilated to 16.5mm. Path: Distal esophagus showed reflux esophagitis. Mid esophagus showed up to 5 eosinophils/hpf (improved from prior scope) She states that she is still having dysphagia, sensation of food getting stuck in upper chest. No vomiting or weight loss. She does not want to continue Dupixent. Doesn't think its helping and has aversions to taking shots. PPI alone did not help sx. She is undergoing evaluation for chronic diarrhea with elevated ESR and CRP. Negative IBD serology.Recent elevated fecal calprotectin level. Negative colonoscopy in 2021. No weight loss, melena, or bloody stools. Colestid/Creon helping. She could not swallow PillCam. Can't do MR enterography due to severe claustrophobia and does not feel that oral benzodiazepine as premedication will be effective as she is alsready being prescribed as daily basis. Requesting IV sedation for procedure. Allergies: No Known Allergies Medications: Current Facility-Administered Medications: ??? lactated Ringer's infusion 1,000 mL, 1,000 mL, intravenous, Continuous, Danya Marcus APRN, Last Rate: 30 mL/hr at 09/01/24 0715, 1,000 mL at 09/01/24 0715 ??? simethicone (MYLICON) oral drops 40 mg, 40 mg, other - see admin instructions, PRN, Danya Marcus APRN ??? Insert Peripheral IV, , , Once AND Saline Lock IV, , , Once AND sodium chloride flush 10 mL, 10 mL, intravenous, PRN, Danya Marcus APRN History: Past Medical History: Diagnosis Date ??? Metcalfe's disease (HCC) ??? Anxiety ??? Chronic kidney disease ??? CKD (chronic kidney disease), stage III (HCC) ??? Depression ??? Diskitis Buldging disk ??? Eosinophilic esophagitis ??? Hypertension ??? Hypothyroid ??? Migraines ??? SANJU on CPAP ??? Stroke (cerebrum) (HCC) 01/24/2023 Past Surgical History: Procedure Laterality Date ??? SECTION ??? CHOLECYSTECTOMY ??? COLONOSCOPY 2021 ??? HYSTERECTOMY ??? INSERTION/REMOVAL,POST-OP PAIN PUMP ??? SHOULDER SURGERY Left x2 ??? TUBAL LIGATION ??? UPPER ENDOSCOPY,DILATATION N/A 02/24/2023 Procedure: EGD, WITH BALLOON DILATION; Surgeon: Galen Alvarenga MD; Location: [facility]; Service: Gastroenterology; Laterality: N/A; ??? UPPER ENDOSCOPY,DILATATION N/A 12/18/2023 Procedure: EGD, WITH BALLOON DILATION; Surgeon: Galen Alvarenga MD; Location: [facility]; Service: Gastroenterology; Laterality: N/A; Family History Problem Relation Age of Onset ??? Heart disease Father ??? Colon cancer Maternal Grandmother Social History Tobacco Use ??? Smoking status: Never ??? Smokeless tobacco: Never Substance Use Topics ??? Alcohol use: Never Review of Systems: Review of Systems Constitutional: Negative for fever and weight loss. HENT: Negative for sore throat. Respiratory: Negative for shortness of breath. Cardiovascular: Negative for chest pain. Gastrointestinal: Positive for diarrhea. Negative for abdominal pain, blood in stool, heartburn, melena, nausea and vomiting. Neurological: Negative for dizziness and loss of consciousness. Objective: BP 117/70 Pulse 70 Temp 97 ??F (36.1 ??C) Resp 18 Ht 1.651 m (5' 5 ) Wt 100.2 kg (221 lb) SpO2 98% BMI 36.78 kg/m?? Physical Exam Vitals reviewed. Constitutional: General: She is not in acute distress. Appearance: Normal appearance. She is obese. HENT: Mouth/Throat: Mouth: Mucous membranes are moist. Eyes: Conjunctiva/sclera: Conjunctivae normal. Cardiovascular: Rate and Rhythm: Normal rate. Pulmonary: Effort: Pulmonary effort is normal. No respiratory distress. Abdominal: General: Bowel sounds are normal. There is no distension. Palpations: Abdomen is soft. Tenderness: There is no abdominal tenderness. Musculoskeletal: Cervical back: Neck supple. Lymphadenopathy: Cervical: No cervical adenopathy. Skin: General: Skin is warm and dry. Coloration: Skin is not jaundiced or pale. Neurological: General: No focal deficit present. Mental Status: She is alert and oriented to person, place, and time. Mental status is at baseline. Psychiatric: Behavior: Behavior normal. Thought Content: Thought content normal. Assessment and Plan: No diagnosis found. Problem List Items Addressed This Visit None Discussion: - EGD - Discussed that she has shown endoscopic response to medication. She tells me that she does not want to continue dupixent- aversion to shots -Start Eohilia (budesonide suspension) 2 mg bid (previously failed swallowed fluticasone MDI. -Continue pantoprazole 40 mg bid -CT Enterography (claustrophobia, anxiety- can't do MRI) Can't swallow Gel Cap/Pill Cam -Continue colestid- Increase to tid -RTC 3 months Potential complications of Esophagogastroduodenoscopy discussed which include, but are not limited to bleeding, infection, perforation, or damage to other body structures/organs. Requested Prescriptions No prescriptions requested or ordered in this encounter Patient instructions given. . documented in this encounter Plan of Treatment Upcoming Encounters Date Type Department Care Team (Late st Contact Info) Description 12/28/2024 11:00 AM EST Office Visit [facility] Gastroenterology [address] [place] [address] Galen Alvarenga MD [address] [place] [address] documented as of this encounter Procedures Procedure Name Priority Date/Time Associated Diagnosis Comments TISSUE EXAM [facility] Routine 09/01/2024 7:44 AM EDT Dysphagia OH EGD TRANSORAL BIOPSY SINGLE/MULTIPLE 09/01/2024 7:34 AM EDT Dysphagia Case Notes [id number] documented in this encounter Results * Tissue Exam (09/01/2024 7:44 AM EDT) AP RESULT See Note: [facility] Comment: [facility] [address] ?[place], [place] ??[address] or [phone] Cy Garcia M.D., Professor Computer Science PATIENT NAME ? LABORATORY NO. [id number] ?? TOMMY PAGE. ? [id number] ? AGE ? SEX ?? SSN ?CLIENT REF # [facility] ? 44 ?1980 ?F ?[id number] [place] ? REQUESTING M.D. ? ATTENDING M.D. ? COPY TO. [address] ? [place] [address] ?DATE COLLECTED ?DATE RECEIVED ?DATE REPORTED 09/01/2024 [...] rendered by Shila Delgado M.D., F.C.A.P. at [employer] [employer] [employer], [address] [place] [address], [place] [address]. GROSS DESCRIPTION: A. ?Labeled as distal esophagus [...] BY: Shila Delgado M.D., F.C.A.P. CPT CODES: ??[id number] Tissue ESOPHAGEAL STRUCTURE / Unknown 09/01/2024 7:44 AM EDT Tissue specimen (specimen) BIOPSY OF ESOPHAGUS / Unknown 09/01/2024 7:44 AM EDT Galen Alvarenga MD PATHOLOGY/CYTOLOGY ORDERABLES Final Result [facility] [address] [place] [address] documented in this encounter Visit Diagnoses Diagnosis Dysphagia- Primary Dysphagia, unspecified documented in this encounter Admitting Diagnoses Diagnosis Dysphagia Dysphagia, unspecified documented in this encounter Administered Medications Inactive Administered Medications - up to 3 most recent administrations Medication Order MAR Action Action Date Dose Rate Site lactated Ringer's infusion 1,000 mL 1,000 mL Continuous, intravenous, at 30 mL/hr, Starting on Fri09/01/24 at 0730, Do not give simultaneously with ceftriaxone via a Y-site., Pre-op New Bag 09/01/2024 7:15 AM EDT 1,000 mLs 30 mL/hr simethicone (MYLICON) oral drops 40 mg 40 mg As needed, other - see admin instructions, flatulence, Starting on Fri09/01/24 at 0659, Dilute in water and insert in water port of scope as directed by physician. sodium chloride flush 10 mL 10 mL As needed, intravenous, line care, Starting on Fri09/01/24 at 0659, Every 8 hours and PRN to flush, Pre-op documented in this encounter Active and Recently Administered Medications Times are shown in EDT. Continuous Medication Order 08/30/2024 08/31/2024 09/01/2024 lactated Ringer's infusion 1,000 mL 1,000 mL Continuous, intravenous, at 30 mL/hr, Starting on Fri09/01/24 at 0730, Do not give simultaneously with ceftriaxone via a Y-site., Pre-op 0715 (New Bag - Prov ider: Josee Barbosa RN) PRN Medication Order 08/30/2024 08/31/2024 09/01/2024 simethicone (MYLICON) oral drops 40 mg 40 mg As needed, other - see admin instructions, flatulence, Starting on Fri09/01/24 at 0659, Dilute in water and insert in water port of scope as directed by physician. sodium chloride flush 10 mL(Linked Group 1) 10 mL As needed, intravenous, line care, Starting on Fri09/01/24 at 0659, Every 8 hours and PRN to flush, Pre-op Linked Groups Order Group 1: Insert Peripheral IV (CANCELED) STAT, Once, On Fri09/01/24 at 0700, For 1 occurrence, Pre-op And Saline Lock IV (CANCELED) Routine, Once, On Fri09/01/24 at 0700, For 1 occurrence, Pre-op And sodium chloride flush 10 mLJump to med 10 mL As needed, intravenous, line care, Starting on Fri09/01/24 at 0659, Every 8 hours and PRN to flush, Pre-op documented in this encounter Care Teams Cardiovascular Surgical Tech Relationship Specialty Start Date End Date Uyen Hines MD [address] [place] [address] PCP - General Family Medicine 02/11/23 Gee Quan APRN [address] [place] [phone] Nurse Practitioner 02/24/23 documented as of this encounter
--- OUTSIDE RECORDS SUMMARY | 2024-10-19 10:49 | XMS_ITS | Encounter Summary ---
Author Organization [employer] Address [address] [place] [address] Care Team Providers Care Four Roll Calender Operator Name Role Phone Uyen Hines MD Primary Care Provider [phone] Gee Quan APRN Unavailable Reason for Referral * CAT Scan (Routine) - Closed Specialty Diagnoses / Procedures Referred By Christopher yuan Referred To Contact Radiology Diagnoses Elevated fecal calprotectin Procedures CT abdomen & pelvis - enterography W/Contrast Danya Marcus APRN [facility] [address] [place] [address] Phone: tel: fax: Referral ID Status Reason Start Date Expiration Date Visits Re quested Visits Authorized [id number] Closed 07/13/2024 09/11/2024 1 1 Reason for Visit * Reason Comments Follow-up Presents at clinic f or follow up. Pt reports worsening dysphagia x 1 month. Difficulty with solids and liquids. Dysphagia Encounter Details Date Type Department Care Team (Late st Contact Info) Description 07/08/2024 1:45 PM EDT Office Visit [facility] Gastroenterology [address] [place] [address] Danya Marcus APRN Esophageal dysphagia (Primary Dx); Elevated fecal calprotectin; Gastroesophageal reflux disease with esophagitis without hemorrhage; Diarrhea, unspecified type; Eosinophilic esophagitis Social History Tobacco Use Types Packs/Day Years [...] Date Ralf rded Speak language other than Ethiopian at home Not on file 12/11/2023 Want [...] Sign Reading Time Taken Comments Blood Pressure 98/69 07/08/2024 2:07 PM EDT Pulse 69 07/08/2024 2:07 PM EDT Temperature - - Respiratory Rate 20 07/08/2024 2:07 PM EDT Oxygen Saturation 95% 07/08/2024 2:07 PM EDT Inhaled Oxygen Concentration - - Weight 104.8 kg (231 lb) 07/08/2024 2:07 PM EDT Height - - Body Mass Index 38.44 05/26/2024 9:22 AM EDT documented in this encounter Progress Notes * Danya Corbettis, INDUSTRIAL GAS SERVICER - 07/08/2024 1:45 PM EDT Gastroenterology Follow up Subjective: Chief Complaint Patient presents with ??? Follow-up Presents at clinic for follow up. Pt reports worsening dysphagia x 1 month. Difficulty with solids and liquids. ??? Dysphagia Tessie Roa is a 43 y.o. female Hx of EOE. Started Dupixent 10/2023 Last EGD 12/2023 showed Esophagitis and small hiatal hernia were present. One benign appearing intrinsic mild stenosis was found and dilated to 16.5mm. ?? Path: Distal esophagus showed reflux esophagitis. Mid [...] procedure. Allergies: No Known Allergies Medications: Current Outpatient Medications: ??? acetaminophen (TYLENOL ARTHRITIS ORAL), Take by mouth., Disp: , Rfl: ??? acetaminophen (TYLENOL) 500 MG tablet, Take 1 tablet (500 mg total) by mouth every 6 (six) hours as needed for Pain., Disp: , Rfl: ??? ALPRAZolam (XANAX) 1 MG tablet, Take 1 tablet (1 mg total) by mouth 3 (three) times daily as needed., Disp: , Rfl: ??? aspirin 81 MG EC tablet, Take 1 tablet (81 mg total) by mouth daily., Disp: , Rfl: ??? budesonide (Eohilia) 2 mg/10 mL SpPk, Take 2 mg by mouth 2 (two) times daily., Disp: 60 packet,Rfl: 2 ??? busPIRone (BUSPAR) 7.5 MG tablet, Take by mouth., Disp: , Rfl: ??? carvediloL (COREG) 6.25 MG tablet, Take 1 tablet (6.25 mg total) by mouth 2 (two) times daily with breakfast and dinner., Disp: , Rfl: ??? colestipoL (COLESTID) 1 gram tablet, Take 1 tablet (1 g total) by mouth 3 (three) times daily.,Disp: 60 tablet, Rfl: 5 ??? escitalopram oxalate (LEXAPRO) 20 MG tablet, Take 1 tablet (20 mg total) by mouth., Disp: , Rfl: ??? levothyroxine (SYNTHROID, LEVOTHROID) 200 MCG tablet, Take 1 tablet (200 mcg total) by mouth., Disp: , Rfl: ??? lisinopriL (PRINIVIL,ZESTRIL) 10 MG tablet, Take 1 tablet (10 mg total) by mouth daily., Disp: , Rfl: ??? pancrelipase, Ibf-Qlsh-Ojqr, (Creon) 36,000-114,000- 180,000 unit CpDR capsule, Take 2 capsule by mouth 3 times daily with meals and 1 cap with snacks.., Disp: 300 capsule, Rfl: 11 ??? pantoprazole (PROTONIX) 40 MG tablet, Take 1 tablet (40 mg total) by mouth 2 (two) times daily., Disp: 180 tablet, Rfl: 2 ??? polyethylene glycol (GLYCOLAX) 17 gram/dose powder, Mix with 8 oz liquid.Take 1-2 capfuls (17 gm each) by mouth twice daily until having regular BM's, then once daily., Disp: 510 g, Rfl: 0 ??? sucralfate (CARAFATE) 100 mg/mL suspension, Take 10 mLs (1 g total) by mouth 3 (three) times daily before meals., Disp: 900 mL, Rfl: 1 ??? TiZANidine (ZANAFLEX) 4 MG capsule, Take 1 capsule (4 mg total) by mouth 3 (three) times daily., Disp: , Rfl: ??? ubrogepant 100 mg Tab, Take by mouth., Disp: , Rfl: History: Past Medical History: Diagnosis Date ??? Vance's disease (HCC) ??? Anxiety ??? Chronic kidney [...] BALLOON DILATION; Surgeon: Christopher Mcghee MD; Location: [facility]; Service: Gastroenterology; Laterality: N/A; ??? UPPER ENDOSCOPY,DILATATION N/A 12/18/2023 Procedure: EGD, WITH BALLOON DILATION; Surgeon: Christopher Mcghee MD; Location: [facility]; Service: Gastroenterology; Laterality: N/A; Family [...] dizziness and loss of consciousness. Objective: BP 98/69 Pulse 69 Resp 20 Wt 104.8 kg (231 lb) SpO2 95% BMI 38.44 kg/m?? Physical Exam Vitals reviewed. Constitutional: General: [...] Content: Thought content normal. Assessment and Plan: 1. Esophageal dysphagia 2. Elevated fecal calprotectin 3. Gastroesophageal reflux disease with esophagitis without hemorrhage 4. Diarrhea, unspecified type 5. Eosinophilic esophagitis Problem List Items Addressed This Visit Digestive Eosinophilic esophagitis Relevant Medications budesonide (Eohilia) 2 mg/10 mL SpPk Other Relevant Orders Case request operating room: ESOPHAGOGASTRODUODENOSCOPY (EGD) (Completed) Gastroesophageal reflux disease Dysphagia - Primary Relevant Orders Case request operating room: ESOPHAGOGASTRODUODENOSCOPY (EGD) (Completed) Other Visit Diagnoses Elevated fecal calprotectin Relevant Orders CT abdomen & pelvis - enterography W/Contrast Diarrhea, unspecified type Relevant Medications colestipoL (COLESTID) 1 gram tablet Discussion: - EGD - Discussed that she [...] damage to other body structures/organs. Requested Prescriptions Signed Prescriptions Disp Refills ??? budesonide (Eohilia) 2 mg/10 mL SpPk 60 packet 2 Sig: Take 2 mg by mouth 2 (two) times daily. ??? colestipoL (COLESTID) 1 gram tablet 60 tablet 5 Sig: Take 1 tablet (1 g total) by mouth 3 (three) times daily. Patient instructions given. . documented in this encounter Plan of Treatment Upcoming Encounters Date Type Department Care Team (Late st Contact Info) Description 12/28/2024 11:00 AM EST Office Visit [facility] Gastroenterology [address] [place] [address] Christopher Mcghee MD [address] [place] [address] documented as of this encounter Results * CT abdomen & pelvis - enterography [...] by Dr. Todd Yi MD Danya Marcus INDUSTRIAL GAS SERVICER IM CT ORDERABLES Final Result documented in this encounter Visit Diagnoses Diagnosis Esophageal dysphagia- Primary Dysphagia, pharyngoesophageal phase Elevated fecal calprotectin Gastroesophageal reflux disease with esophagitis without hemorrhage Diarrhea, unspecified type Eosinophilic esophagitis Elevated fecal calprotectin documented in this encounter Care Teams Four Roll Calender Operator Relationship Specialty Start Date End Date Uyen Hines MD [address] [place] [phone] PCP - General Family Medicine 02/11/23 Gee Quan APRN [address] [place] [address] Nurse Practitioner 02/24/23 documented as of this encounter
--- OUTSIDE RECORDS SUMMARY | 2024-10-19 10:49 | XMS_ITS | Encounter Summary ---
Author Organization [employer] Address [address] [place] [address] Care Team Providers Care Organic Preparation Technician Name Role Phone Uyen Hines MD Primary Care Provider [phone] Gee Quan APRN Unavailable [phone] Reason for Visit * Reason Onset Date Comments OTHER 06/23/2024 Encounter Details Date Type Department Care Team (Late st Contact Info) Description 06/23/2024 Telephone [facility] Gastroenterology [address] [place] [address] Danya Marcus APRN OTHER Social History Tobacco Use Types Packs/Day Years [...] Date Ralf rded Speak language other than [place] Korean at home Not on file 12/11/2023 Want [...] encounter Miscellaneous Notes * Telephone Encounter - Kacy Cabrera CMA - 06/23/2024 2:11 PM EDT Patient called saying she had an MRI Scheduled for tomorrow 06/24/2024, she did not think she coulddo it due to her anxiety. Per you after speaking with her we have canceled the MRI and you are going to see where we could do it under IV sedation. documented in this encounter Plan of Treatment Upcoming Encounters Date Type Department Care Team (Late st Contact Info) Description 12/28/2024 11:00 AM EST Office Visit [facility] Gastroenterology [address] [place] [address] Christopher Mcghee MD [address] [facility] [address] [place] [address] documented as of this encounter Visit Diagnoses Not on filedocumented in this encounter Care Teams Organic Preparation Technician Relationship Specialty Start Date End Date Uyen Hines MD [address] [place] [phone] PCP - General Family Medicine 02/11/23 Gee Quan APRN [address] [place] [address] Nurse Practitioner 02/24/23 documented as of this encounter
--- OUTSIDE RECORDS SUMMARY | 2024-10-19 10:49 | XMS_ITS | Encounter Summary ---
Author Organization [facility] In iatives Address [address] [place] [place] [address] Care Team Providers Care Furniture Reproducer Name Role Phone Uyen Hines MD Primary Care Provider [phone] Gee Quan APRN Unavailable [phone] Reason for Referral * CAT Scan (Routine) - Closed Specialty Diagnoses / Procedures Referred By Sheilaac t Referred To Contact Radiology Diagnoses Elevated fecal calprotectin Procedures CT abdomen & pelvis - enterography W/Contrast Danya Marcus APRN [facility] CT [facility] [address] [place] [phone] Phone: tel: fax: Referral ID Status Reason Start Date Expiration Date Visits Re quested Visits Authorized [id number] Closed 07/13/2024 09/11/2024 1 1 Reason for Visit * CAT Scan (Routine) - Closed Specialty Diagnoses / Procedures Referred By Contac t Referred To Contact Radiology Diagnoses Elevated fecal calprotectin Procedures CT abdomen & pelvis - enterography W/Contrast Danya Marcus APRN [facility] CT Imaging [address] [place] [phone] Phone: tel: fax: Referral ID Status Reason Start Date Expiration Date Visits Re quested Visits Authorized [id number] Closed 07/13/2024 09/11/2024 1 1 Encounter Details Date Type Department Care Team (Latest Contact Info) Description 2024 10:00 AM EDT - 2024 11:59 PM EDT [facility] [address] [place] [address] Danya Marcus APRN Elevated fecal calprotectin Discharge Disposition: Home or Self Care Social [...] Date Ralf rded Speak language other than Portuguese at home Not on file 12/11/2023 Want [...] mg total) by mouth daily. 01/16/2023 pancrelipase, Eux-Smqx-Wkgs, (Creon) 36,000-114,000- 180,000 unit CpDR capsule Take [...] Miscellaneous Notes * Result Encounter Note - Danya Marcus APRN - 2024 10:[address] enterography shows no evidence of colitis or other GI abnormalities. documented in this encounter Plan of Treatment Upcoming Encounters Date Type Department Care Team (Late st Contact Info) Description 12/28/2024 11:00 AM EST Office Visit [facility] Gastroenterology [address] [place] [address] Christopher Mcghee MD [address] [facility] [address] [place] [address] documented as of this encounter Procedures Procedure Name Priority Date/Time Associated Diagnosis Comments CT ABDOMEN & PELVIS - ENTEROGRAPHY Routine 2024 11:45 AM EDT Elevated fecal calprotectin POCT-CREATININE NOVA Routine 2024 11:20 AM EDT documented in this encounter Results * CT abdomen & pelvis - enterography W/Contrast (2024 11:45 AM EDT) Anatomical Region Laterality Modality Computed Tomogra phy (CT) 07/31/2024 11:5 7 AM EDT Impressions 07/31/2024 12:00 PM EDT No acute disease. Images reviewed, interpreted and dictated by Dr. oTdd Yi MD Narrative 07/31/2024 12:00 PM EDT [...] by Dr. Todd Yi MD Danya Marcus [facility] CT ORDERABLES Final Result * POC-Creatinine (2024 11:20 AM EDT) POC-Creatinine 1.5 mg/dL 2024 11:21 AM EDT [facility] POC-EGFR 44 mL/min/1. 73M2 2024 11:21 AM EDT [facility] Comment:Proceed with contras t if eGFR > 45 ml/min/1.73 when performed on the NovaSTAT strip Creatinine meter. Lithographic General Worker Tomi Lam 2024 11:21 AM EDT [facility] Blood 2024 11:2 0 AM EDT 2024 11:21 AM EDT Narrative [facility] - 2024 11:21 AM EDT Lithographic General Worker ID is - [id number] us Danya Marcus [employer]PORATE T[employer] PREPARER POINT OF CARE TEST ORDERABLES Final Result [facility] [address] [place] [address] documented in this encounter Visit Diagnoses Diagnosis Elevated fecal calprotectin documented in this encounter Administered Medications Inactive Administered Medications - up to 3 most recent administrations Medication Order MAR Action Action Date Dose Rate Site barium (NEULUMEX) suspension 0.1% 450 mL Once, oral, On Fri07/30/24 at 1230, For 1 dose, Intra-op Given 2024 11:46 AM EDT 450 mLs iopamidoL (ISOVUE-300) injection 100 mL 100 mL Once, intravenous, On Fri07/30/24 at 1230, For 1 dose, Intra-op Given 2024 11:45 AM EDT 75 mLs documented in this encounter Care Teams Furniture Reproducer Relationship Specialty Start Date End Date Uyen Hines MD [address] [place] [phone] PCP - General Family Medicine 02/11/23 Gee Quan APRN [address] [place] [address] Nurse Practitioner 02/24/23 documented as of this encounter
--- OUTSIDE RECORDS SUMMARY | 2024-10-19 10:49 | XMS_ITS | Encounter Summary ---
Author Organization [employer] In [facility] Address [address] [place] [address] Care Team Providers Care Bond Writer Name Role Phone Uyen Hines MD Primary Care Provider Gee Quan TAVERN KEEPER Unavailable [phone] Reason for Visit * Auth/Cert (Routine) Specialty Diagnoses / Procedures Referred By Christopher yuan Referred To Contact Diagnoses Dysphagia Dysphagia, EOE Procedures VA ESOPHAGOGASTRODUODENOSCOPY TRANSORAL DIAGNOSTIC VA EGD TRANSORAL BIOPSY SINGLE/MULTIPLE VA EGD BALLOON DILATION ESOPHAGUS <30 MM DIAM VA EGD REMOVAL TUMOR POLYP/OTHER LESION SNARE TECH EGD (ESOPHAGOGASTRODUODENOSCOPY) [facility] Endoscopy [address] [place] [address] Phone: tel: fax: [facility] [address] [place] [address] Phone: tel: fax: Referral ID Status Reason Start Date Expiration Date Visits Re quested Visits Authorized [id number] 1 1 Encounter Details Date Type Department Care Team (Late st Contact Info) Description 09/01/2024 7:30 AM EDT - 09/01/2024 7:58 AM EDT Surgery [facility] Endoscopy [address] [place] [address] Christopher Alvarenga MD [address] [facility] [address] [place] [id number] ENDOSCOPY, UPPER GI TRACT, WITH BIOPSY Social History Tobacco Use Types Packs/Day Years [...] Date Ralf rded Speak language other than Lao at home Not on file 12/11/2023 Want [...] Sign Reading Time Taken Comments Blood Pressure 104/68 09/01/2024 7:56 AM EDT Pulse 62 09/01/2024 7:56 AM EDT Temperature 36.5 ??C (97.7 ??F) 09/01/2024 7:46 AM ED T Respiratory Rate 13 09/01/2024 7:56 AM EDT Oxygen Saturation 100% 09/01/2024 7:56 AM EDT Inhaled Oxygen Concentration - - [...] mg total) by mouth daily. 01/16/2023 pancrelipase, Whl-Rzgd-Gtip, (Creon) 36,000-114,000- 180,000 unit CpDR capsule Take [...] as of this encounter H&P Notes * Christopher Alvarenga MD - 09/01/2024 7:16 AM EDT Gastroenterology Follow up Subjective: No chief complaint on file. Tessie Page is a 44 y.o. female Hx [...] History: Past Medical History: Diagnosis Date ??? [place]'s disease (HCC) ??? Anxiety ??? Chronic kidney [...] Procedure: EGD, WITH BALLOON DILATION; Surgeon: Christopher Alvarenga MD; Location: [facility]; Service: Gastroenterology; Laterality: N/A; ??? UPPER ENDOSCOPY,DILATATION N/A 12/18/2023 Procedure: EGD, WITH BALLOON DILATION; Surgeon: Christopher Alvarenga MD; Location: [facility]; Service: Gastroenterology; Laterality: N/A; Family History [...] Description 12/28/2024 11:00 AM EST Office Visit [facility] Gastroenterology [address] [place] [address] Christopher Alvarenga MD [address] [place] [address] documented as of this encounter Procedures Procedure Name Priority Date/Time Associated Diagnosis Comments TISSUE EXAM [facility] AP Routine 09/01/2024 7:44 AM EDT Dysphagia VA EGD TRANSORAL BIOPSY SINGLE/MULTIPLE 09/01/2024 7:34 AM EDT Dysphagia Case Notes [id number] documented in this encounter Results * Tissue Exam (09/01/2024 7:44 AM EDT) AP RESULT See Note: [facility] Comment: [facility] [address] ?[place], [place] ??[address] or [phone] Cy Garcia M.D., Corporate Legal Manager PATIENT NAME ? LABORATORY NO. [id number] ?? TESSIE PAGE. ? [id number] ? AGE ? SEX ?? SSN ?CLIENT REF # [facility] ? 44 ?1980 ?F ?[id number] [place] ? REQUESTING M.D. ? ATTENDING M.D. ? COPY TO. [address] ? [place] [address] ?DATE COLLECTED ?DATE RECEIVED ?DATE REPORTED 09/01/2024 [...] rendered by Shila Delgado M.D., F.C.A.P. at [facility], [address] [place] [address], [place] [address]. GROSS DESCRIPTION: A. ?Labeled as distal esophagus [...] BY: Shila Delgado M.D., F.C.A.P. CPT CODES: ??[id number] Tissue ESOPHAGEAL STRUCTURE / Unknown 09/01/2024 7:44 AM EDT Tissue specimen (specimen) BIOPSY OF ESOPHAGUS / Unknown 09/01/2024 7:44 AM EDT Christopher Alvarenga MD PATHOLOGY/CYTOLOGY ORDERABLES Final Result [facility] [address] [place] [address] documented in this encounter Visit Diagnoses Diagnosis Dysphagia- Primary Dysphagia, unspecified Dysphagia Dysphagia, unspecified documented in this encounter Admitting [...] Pre-op documented in this encounter Care Teams Bond Writer Relationship Specialty Start Date End Date Uyen Hines MD [address] [place] [phone] PCP - General Family Medicine 02/11/23 Gee Quan APRN [address] [place] [phone] Nurse Practitioner 02/24/23 documented as of this encounter
--- OUTSIDE RECORDS SUMMARY | 2024-10-19 10:49 | XMS_ITS | Referral Summary ---
Author Organization [employer] [facility] Init iatives Address [address] [place] [address] Care Team Providers Care Missile Tracking Technician Name Role Phone Uyen Hines MD Primary Care Provider [phone] Gee Quan TEXTILE SUPERVISOR Unavailable [phone] Encounters Date Type Department Care Team Description 09/28/2024 9:30 AM EST - 09/28/2024 11:59 PM [facility] Hospital Encounter [facility] Nuclear Medicine [address] [place] [address] Galen Alvarenga MD Generalized abdominal pain; Weight loss, unintentional; Constipation, unspecified constipation type; Elevated fecal calprotectin; Common bile duct dilation; Dysphagia, unspecified type; Diarrhea, unspecified type Discharge Disposition: Home or Self Care 09/27/2024 Travel 09/20/2024 Orders Only [facility] Gastroenterology [address] [place] [address] Galen Alvarenga MD Generalized abdominal pain (Primary Dx); Weight loss, unintentional; Constipation, unspecified constipation type; Elevated fecal calprotectin; Common bile duct dilation; Dysphagia, unspecified type; Diarrhea, unspecified type 09/17/2024 Telephone [facility] Gastroenterology [address] [place] [address] Galen Alvarenga MD 0 09/16/2024 Travel 09/13/2024 Travel 09/07/2024 Travel 09/07/2024 6:24 PM EDT - 09/07/2024 10:16 PM EDT Emergency [facility] Emergency Department [address] [phone] Salvador Suh MD Addisons disease (HCC) (Primary Dx); Stage 3a chronic kidney disease (HCC); Generalized abdominal pain Discharge Disposition: Home or Self Care 09/02/2024 Orders Only [facility] Gastroenterology [address] [place] [address] Galen Alvarenga MD Generalized abdominal pain (Primary Dx); Weight loss, unintentional; Constipation, unspecified constipation type; Elevated fecal calprotectin; Common bile duct dilation 09/01/2024 7:34 AM EDT Anesthesia Event [facility] Endoscopy [address] [phone] Juan Adam, Louie Alvarado MD 09/01/2024 Travel 09/01/2024 7:30 AM EDT - 09/01/2024 7:58 AM EDT Surgery [facility] Endoscopy [address] [place] [address] Galen Alvarenga MD ENDOSCOPY, UPPER GI TRACT, WITH BIOPSY 09/01/2024 6:52 AM EDT - 09/01/2024 8:23 AM EDT Hospital Encounter [facility] Endoscopy [address] [place] [address] Galen Alvarenga MD Dysphagia Discharge Disposition: Home or Self Care 2024 Travel 2024 10:00 AM EDT - 2024 11:59 PM EDT Hospital Encounter [facility] CT Imaging [address] [place] [address] Danya Marcus APRN Elevated fecal calprotectin Discharge Disposition: Home or Self Care from Last 3 Months Allergies No known active allergies Medications ALPRAZolam (XANAX) 1 MG tablet Take 1 tablet (1 mg total) by mouth 3 (three) times daily as needed. Active busPIRone (BUSPAR) 7.5 MG tablet Take [...] daily. 180 tablet 2 4 Active pancrelipase, Erg-Udni-Kmqv, (Creon) 36,000-114,000- 180,000 unit CpDR capsule Take [...] times daily. 60 tablet 5 4 07/08/20 25 Active Active Problems Problem Noted Date Diagnosed Date Addisons disease 09/07/2024 Generalized abdominal pain 09/07/2024 CHF (congestive heart failure) 12/18/2023 Gastroesophageal reflux disease 12/18/2023 Dysphagia 12/18/2023 Chronic renal insufficiency 12/18/2023 SANJU (obstructive sleep apnea) 12/18/2023 Anxiety 02/24/2023 CKD (chronic kidney disease), stage III 02/25/20 Depression 02/24/2023 Eosinophilic esophagitis 02/24/2023 Hypertension 02/24/2023 Hypothyroid 02/24/2023 Migraines 02/24/2023 Stroke (cerebrum) 02/24/2023 Social History Tobacco Use Types Packs/Day Years [...] Date Ralf rded Speak language other than Irish at home Not on file 12/11/2023 [...] Description 12/28/2024 11:00 AM EST Office Visit [facility] Gastroenterology [address] [place] [address] Galen Alvarenga MD [address] [facility] [address] [place] [address] Procedures Procedure Name Priority Date/Time Associated Diagnosis [...] STAT 09/07/2024 7:05 PM EDT TISSUE EXAM [facility] AP Routine 09/01/2024 7:44 AM EDT Dysphagia HI EGD TRANSORAL BIOPSY SINGLE/MULTIPLE 09/01/2024 7:34 AM [...] Doc Antonio. Transcribed by Heath Flores PA-C. us Galen Alvarenga MD [facility] [place] [place] NM ORDERABLES Final Result * CT ABDOMEN/PELVIS [...] and dictated by Ke Lowery M.D. us [employer] PA-C IMG CT ORDERABLES Final Res ult * [...] and dictated by Ke Lowery M.D. us [employer] Jamal PA-C IMG DIAGNOSTIC IMAGING ORDE RABLES Final Result * Urinalysis, Reflex Microscopic and Culture If Indicated (09/07/2024 7:20 PM EDT) Color, UA Yellow 09/07/2024 7:41 PM EDT [facility] Clarity, UA Clear 09/07/2024 7:41 PM EDT [facility] Specific [place], UA 1.015 1.002 - 1.030 09/07/2024 7:41 PM EDT [facility] pH, UA 6.0 5.0 - 9.0 09/07/2024 7:41 PM EDT [facility] Leukocytes, UA Negative Negative 09/07/2024 7:41 PM EDT [facility] Nitrite, UA Negative Negative 09/07/2024 7:41 PM EDT [facility] Protein, UA Negative Negative 09/07/2024 7:41 PM EDT [facility] Glucose, UA Negative Negative 09/07/2024 7:41 PM EDT [facility] Ketones, UA Negative Negative 09/07/2024 7:41 PM EDT [facility] Bilirubin, UA Negative Negative 09/07/2024 7:41 PM EDT [facility] Blood, UA Negative Negative 09/07/2024 7:41 PM EDT [facility] Urobilinogen, UA 0.2 mg/dL Normal 09/07/2024 7:41 PM EDT [facility] Specimen Source Urine, Clean Catch 09/07/2024 7:41 PM EDT [facility] Urine URINE SPECIMEN COLLECTION, CLEAN CATCH / Unknown 09/07/2024 7:20 PM EDT 09/07/2024 7:32 PM EDT us Artem Berry PAJose URINE ORDERABLES Final Resu lt [facility] [address] [place] [id number] [phone] * SARS-COV2/RT-PCR (09/07/2024 7:16 PM EDT) SARS-COV2/RT-P CR Negative Negative DEVICE ID6 09/07/2024 7:56 PM EDT [facility] Nasopharyngeal NASOPHARYNGEAL SWAB / Unknown 09/07/2024 7:16 PM EDT 09/07/2024 7:24 PM EDT Narrative [facility] - 09/07/2024 7:56 PM EDT Testing [...] according to the current CDC recommendations. Artem Berry PA-C MICROBIOLOGY - GENERAL CORA HUERTAS Final Result [facility] [address] [place] [address] * (ABNORMAL) CBC with Auto Diff (09/07/2024 7:15 PM EDT) WBC 8.8 4.8 - 10.8 K/??L 09/07/2024 7:31 PM EDT [facility] RBC 4.55 3.50 - 5.20 M/??L 09/07/2024 7:31 PM EDT [facility] Hemoglobin 13.2 11.7 - 15.8 GM/DL 09/07/2024 7:31 PM EDT [facility] Hematocrit 40.2 35.0 - 47.0 % 09/07/2024 7:31 PM EDT [facility] MCV 88 81 - 101 fL 09/07/2024 7:31 PM EDT [facility] MCH 29.0 27.0 - 34.0 pg 09/07/2024 7:31 PM EDT [facility] MCHC 32.8 32.0 - 36.0 GM/DL 09/07/2024 7:31 PM EDT [facility] RDW 13.9 11.5 - 14.5 % 09/07/2024 7:31 PM EDT [facility] Platelets 359 150 - 400 K/CU MM 09/07/2024 7:31 PM EDT [facility] MPV 8.7(L) 9.4 - 12.4 fL 09/07/2024 7:31 PM EDT [facility] Nucleated Red Blood Cell 0.0 0 - 0.2 % 09/07/2024 7:31 PM EDT [facility] % Neutros 44 37 - 80 % 09/07/2024 7:31 PM EDT [facility] % Lymphs 39 10 - 50 % 09/07/2024 7:31 PM EDT [facility] % Monos 11 5 - 13 % 09/07/2024 7:31 PM EDT [facility] % Eos 5 0 - 7 % 09/07/2024 7:31 PM EDT [facility] % Baso 1 0 - 3 % 09/07/2024 7:31 PM EDT [facility] NRBC Absolute <0.01 0 - 0.012 K/ul 09/07/2024 7:31 PM EDT [facility] # Neutros 3.89 2.00 - 6.90 K/??L 09/07/2024 7:31 PM EDT [facility] # Lymphs 3.48(H) 0.60 - 3.40 K/??L 09/07/2024 7:31 PM EDT [facility] # Monos 0.93(H) 0.00 - 0.90 K/??L 09/07/2024 7:31 PM EDT [facility] # Eos 0.40 0.00 - 0.70 K/??L 09/07/2024 7:31 PM EDT [facility] # Baso 0.08 0.00 - 0.20 K/??L 09/07/2024 7:31 PM EDT [facility] Immature Granulocytes-Re lative 0.60 % 09/07/2024 7:31 PM EDT [facility] # IG 0.05(H) 0.00 - 0.00 K/uL 09/07/2024 7:31 PM EDT [facility] Blood ENTIRE LEFT UPPER ARM / Unknown Venipuncture / Unknown 09/07/2024 7:15 PM EDT 09/07/2024 7:26 PM EDT Narrative [facility] - 09/07/2024 7:31 PM EDT When [...] BLOOD ORDERABLES Final Result Performing Organization Address City/State/[facility] Co de Phone Number [facility] [address] [place] [address] * (ABNORMAL) High Sensitivity Troponin I (09/07/2024 7:15 PM EDT) Troponin I High Sensitivity (pg/mL) <4(L) 4 - 60.3 pg/mL 09/07/2024 8:01 PM EDT [facility] Comment: Troponin Result (pg/mL) ??*Interpretation 4-60.3 [...] Berry PA-C LAB BLOOD ORDERABLES Final Result [facility] [address] [place] [address] * Magnesium (09/07/2024 7:15 PM EDT) Magnesium 2.1 1.8 - 2.4 mg/dL 09/07/2024 9:31 PM EDT [facility] Blood ENTIRE LEFT UPPER ARM / Unknown Venipuncture / Unknown 09/07/2024 7:15 PM EDT 09/07/2024 7:26 PM EDT Monse Crooks PA-C LAB BLOOD ORDERABLES Final Resu lt Performing Organization Address City/[facility]/ZIP Co de Phone Number [facility] [address] [place] [address] * Lipase (09/07/2024 7:15 PM EDT) Lipase 29 16 - 77 U/L 09/07/2024 8:01 PM EDT [facility] Blood ENTIRE LEFT UPPER ARM / Unknown Venipuncture / Unknown 09/07/2024 7:15 PM EDT 09/07/2024 7:26 PM EDT Stefanicharito Berry PA-C LAB BLOOD ORDERABLES Final Result Performing Organization Address City/[facility]/ZIP Co de Phone Number [facility] [address] [place] [address] * (ABNORMAL) Comprehensive metabolic panel (09/07/2024 7:15 PM EDT) Sodium 138 136 - 145 meq/L 09/07/2024 8:01 PM EDT [facility] Potassium 4.0 3.5 - 5.1 meq/L 09/07/2024 8:01 PM EDT [facility] Chloride 103 98 - 107 meq/L 09/07/2024 8:01 PM EDT [facility] CO2 29 21 - 32 meq/L 09/07/2024 8:01 PM EDT [facility] Calcium 8.9 8.5 - 10.1 mg/dL 09/07/2024 8:01 PM EDT [facility] Glucose 87 70 - 99 mg/dL 09/07/2024 8:01 PM EDT [facility] BUN 10 7 - 18 mg/dL 09/07/2024 8:01 PM EDT [facility] Creatinine 1.46(H) 0.55 - 1.10 mg/dL 09/07/2024 8:01 PM EDT [facility] BUN/Creatinine 7 09/07/2024 8:01 PM EDT [facility] Albumin 3.5 3.4 - 5.0 g/dL 09/07/2024 8:01 PM EDT [facility] Alkaline Phosphatase 74 46 - 116 U/L 09/07/2024 8:01 PM EDT [facility] ALT 13 12 - 78 U/L 09/07/2024 8:01 PM EDT [facility] AST 18 15 - 37 U/L 09/07/2024 8:01 PM EDT [facility] Total Bilirubin 0.4 0.2 - 1.0 mg/dL 09/07/2024 8:01 PM EDT [facility] Protein, Total 7.5 6.4 - 8.2 gm/dL 09/07/2024 8:01 PM EDT [facility] Anion Gap 10(L) 11 - 22 09/07/2024 8:01 PM EDT [facility] A/G Ratio 0.9 09/07/2024 8:01 PM EDT [facility] Globulin 4 g/dL 09/07/2024 8:01 PM EDT [facility] Osmolality Calc 274.1 8:01 PM EDT [facility] eGFR (mL/min/1.73m2) 46(L) >=60 mL/min/1.7 3m2 09/07/2024 8:01 PM EDT [facility] Comment:ESTIMATED GFR IS NOT ACCURATE CREATININE CLEARANCE IN PREDICTING GLOMERULAR FILTRATION RATE. ESTIMATED GFR IS NOT APPLICABLE FOR DIALYSIS PATIENTS. Blood ENTIRE LEFT UPPER ARM / Unknown Venipuncture / Unknown 09/07/2024 7:15 PM EDT 09/07/2024 7:26 PM EDT [employer] PA-C LAB BLOOD ORDERABLES Final Result Performing Organization Address City/[facility]/ZIP Co de Phone Number [facility] [address] [phone] * ECG 12 lead (09/07/2024 7:05 PM EDT) VENTRICULAR RATE EKG/MIN 63 BPM GE MUSE ATRIAL RATE (MCT) 63 BPM GE MUSE HI Interval 152 ms GE MUSE QRS-INTERVAL (MSEC) 84 ms GE MUSE QT Interval 412 ms GE MUSE QTC Interval 421 ms GE MUSE P Ursa 33 degrees GE MUSE R AXIS (MCT) 9 degrees GE MUSE T Wave Urs[place] -4 degrees GE MUSE [place] Diagnosis Normal sinus rhythm Minimal voltage criteria for LVH, may be normal variant ( R in aVL ) Borderline ECG No previous ECGs available Confirmed by Josias SR, CY ([id number]) on 09/08/2024 5:03:41 PM GE MUSE 09/07/2024 7:05 PM EDT 09/08/2024 5:03 PM EDT Capitaine Trainiff PA-C ECG ORDERABLES Final Resul t GE MUSE * Tissue Exam (09/01/2024 7:44 AM EDT) AP RESULT See Note: [facility] Comment: [facility] [address] ?[place], [place] ??[address] or [phone] Cy Garcia M.D., Field Sampling Technician PATIENT NAME ? LABORATORY NO. [id number] ?? TOMMY PAGE. ? [id number] ? AGE ? SEX ?? SSN ?CLIENT REF # [facility] ? 44 ?1980 ?F ?[id number] DEAN ? REQUESTING M.D. ? ATTENDING M.D. ? COPY TO. [address] ? GALEN ALVARENGA [facility] [place] [address] ?DATE COLLECTED ?DATE RECEIVED ?DATE REPORTED 09/01/2024 [...] Professional interpretation rendered by Shila Delgado M.D., Loreta.Isabel.Opal at [employer], [address] [place] [address]. GROSS DESCRIPTION: A. ?Labeled as distal esophagus [...] BY: Shila Delgado M.D., F.C.A.P. CPT CODES: ??[id number] Tissue ESOPHAGEAL STRUCTURE / Unknown 09/01/2024 7:44 AM EDT Tissue specimen (specimen) BIOPSY OF ESOPHAGUS / Unknown 09/01/2024 7:44 AM EDT us Galen Alvarenga MD PATHOLOGY/CYTOLOGY ORDERABLES Final Result Performing Organization Address City/State/[facility] Co de Phone Number [facility] [address] [place] [address] * CT abdomen & pelvis - enterography [...] dictated by Dr. Todd Yi MD Danya [facility]rit [facility] ORDERABLES Final Result * POC-Creatinine (2024 11:20 AM EDT) POC-Creatinine 1.5 mg/dL 2024 11:21 AM EDT [facility] POC-EGFR 44 mL/min/1. 73M2 2024 11:21 AM EDT [facility] Comment:Proceed with contras t if eGFR > 45 ml/min/1.73 when performed on the NovaSTAT strip Creatinine meter. Mixer Lever Operator Tomi Lam 2024 11:21 AM EDT [facility] Blood 2024 11:2 0 AM EDT 2024 11:21 AM EDT Narrative [facility] - 2024 11:21 AM EDT Mixer Lever Operator ID is - [id number] us Danya Marcus TEXTILE SUPERVISOR POINT OF CARE TEST ORDERABLES Final Result [facility] [address] [place] [address], [facility] [phone] from Last [address] [address] Advance Directives For more information, please contact: [phone] * Full Code (Latest Code Status on [...] if patient is in distress. Care Teams Missile Tracking Technician Relationship Specialty Start Date End Date Uyen Hines MD [address] [place] [phone] PCP - General Family Medicine 02/11/23 Gee Quan, CAMELIA [address] [place] [address] Nurse Practitioner 02/24/23
--- OUTSIDE RECORDS SUMMARY | 2024-10-19 10:50 | XMS_ITS | Encounter Summary ---
Author Organization [employer] Address [address] [place] [address] Care Team Providers Care Store Team Member Name Role Phone Uyen Hines MD Primary Care Provider [phone] Gee Quan WOMEN'S ACTIVITIES ADVISER Unavailable [phone] Encounter Details Date Type Department Care Team (Latest Contact Info) Description 01/01/2024 Travel Social History Tobacco Use Types Packs/Day [...] Date Ralf rded Speak language other than Nigerian at home Not on file 12/11/2023 Want [...] Visit [facility] Gastroenterology [address] [place] [address] Christopher Mcghee MD [address] [facility] [address] [place] [address] documented as of this encounter Visit Diagnoses Not on filedocumented in this encounter Care Teams Store Team Member Relationship Specialty Start Date End Date Uyen Hines MD [address] [place] [phone] PCP - General Family Medicine 02/11/23 Gee Quan, CAMELIA [address] [place] [address] Nurse Practitioner 02/24/23 documented as of this encounter
--- OUTSIDE RECORDS SUMMARY | 2024-10-19 10:50 | XMS_ITS | Encounter Summary ---
Author Organization [employer] Address [address] [place] [address] Care Team Providers Care Title Checker Name Role Phone Uyen Hines MD Primary Care Provider [phone] Gee Quan ALIGNER BARREL AND RECEIVER Unavailable [phone] Encounter Details Date Type Department Care Team (Latest Contact Info) Description 05/26/2024 Travel Social History Tobacco Use Types Packs/Day [...] Date Ralf rded Speak language other than Mosotho at home Not on file 12/11/2023 Want [...] Description 12/28/2024 11:00 AM EST Office Visit [facility] Gastroenterology [address] [place] [address] Christopher Mcghee MD [address] [facility] [address] [place] [address] documented as of this encounter Visit Diagnoses Not on filedocumented in this encounter Care Teams Title Checker Relationship Specialty Start Date End Date Uyen Hines MD [address] [place] [phone] PCP - General Family Medicine 02/11/23 Gee Quan, CAMELIA [address] [place] [address] Nurse Practitioner 02/24/23 documented as of this encounter
--- OUTSIDE RECORDS SUMMARY | 2024-10-19 10:50 | XMS_ITS | Encounter Summary ---
Author Organization [facility] [employer] Address [address] [place] [address] Care Team Providers Care Technical Consultant Name Role Phone Uyen Hines MD Primary Care Provider [phone] Gee Quan APRN Unavailable [phone] Reason for Referral * Diagnostic X-Ray (Routine) - Closed Specialty Diagnoses / Procedures Referred By Christopher yuan Referred To Contact Radiology Diagnoses Acute constipation Procedures XR abdomen acute series flat/uprt with uprt pa chest and/or decubs Danya Marcus APRN [facility] [address] [place] [phone] Phone: tel: fax: Referral ID Status Reason Start Date Expiration Date Visits Re quested Visits Authorized [id number] Closed 05/26/2024 05/26/2025 1 1 Reason for Visit * Diagnostic X-Ray (Routine) - Closed Specialty Diagnoses / Procedures Referred By Christopher yuan Referred To Contact Radiology Diagnoses Acute constipation Procedures XR abdomen acute series flat/uprt with uprt pa chest and/or decubs Danya Marcus APRN [facility] [address] [place] [phone] Phone: tel: fax: Referral ID Status Reason Start Date Expiration Date Visits Re quested Visits Authorized [id number] Closed 05/26/2024 05/26/2025 1 1 Encounter Details Date Type Department Care Team (Latest Contact Info) Description 05/26/2024 10:07 AM EDT - 05/26/2024 11:59 PM EDT Hospital Encounter [facility] [address] [place] [address] Danya Marcus APRN Acute constipation Discharge Disposition: Home or Self Care Social [...] 3 (three) times daily as needed. 3 aspirin 81 MG EC tablet Take 1 tablet (81 mg total) by mouth daily. busPIRone (BUSPAR) 7.5 MG tablet Take by mouth. carvediloL (COREG) 6.25 MG tablet Take 1 tablet (6.25 mg total) by mouth 2 (two) times daily with breakfast and dinner. escitalopram oxalate (LEXAPRO) 20 MG tablet Take 1 tablet (20 mg total) by mouth. 2 levothyroxine (SYNTHROID, LEVOTHROID) 200 MCG tablet Take 1 tablet (200 mcg total) by mouth. 2 lisinopriL (PRINIVIL,ZESTRIL ) 10 MG tablet Take 1 tablet (10 mg total) by mouth daily. 3 pancrelipase, Xlk-Hdvd-Lizb, (Creon) 36,000-114,000- 180,000 unit CpDR capsule Take 2 capsule by mouth 3 times daily with meals and 1 cap with snacks.. 300 capsule 11 4 pantoprazole (PROTONIX) 40 MG tabletIndications :Gastroesophageal reflux disease with esophagitis without hemorrhage Take 1 tablet (40 mg total) by mouth 2 (two) times daily. 180 tablet 2 4 polyethylene glycol (GLYCOLAX) 17 gram/dose powderIndications :Acute constipation Mix with 8 oz liquid.Take 1-2 capfuls (17 gm each) by mouth twice daily until having regular BM's, then once daily. 510 g 4 sucralfate (CARAFATE) 100 mg/mL suspensionIndicat ions:Eosinophilic esophagitis,Esoph ageal dysphagia Take 10 mLs (1 g total) by mouth 3 (three) times daily before meals. 900 mL 1 4 TiZANidine (ZANAFLEX) 4 MG capsule Take 1 capsule (4 mg total) by mouth 3 (three) times daily. ubrogepant 100 mg Tab Take by mouth. bisacodyL (DULCOLAX) 10 mg suppositoryIndica tions:Acute constipation Place 1 suppository (10 mg total) rectally daily as needed for up to 10 days. 10 suppository 4 06/09/20 24 colestipoL (COLESTID) 1 gram tabletIndications :Diarrhea, unspecified type Take 1 tablet (1 g total) by mouth 2 (two) times daily. 60 tablet 5 4 07/08/20 24 Dupixent Pen 300 mg/2 mL PnIj Inject subcutaneously. 3 07/08/20 24 documented as of this encounter Miscellaneous Notes * Result Encounter Note - Danya Marcus APRN - 05/26/2024 10:45 AM EDT X-ray showed lot of gas and stool. No obstruction. Recommend continuing miralax 1-2 scoops twice daily. Drink 1 bottle of mag citrate today- rx sent to pharmacy. Use dulcolax suppository (rx sent) once daily until BM or can use Fleets enema. To ER over holidays and week-end if she have fever, N/V persistent abdominal pain. documented in this encounter Plan of Treatment Upcoming Encounters Date Type Department Care Team (Late st Contact Info) Description 12/28/2024 11:00 AM EST Office Visit [facility] Gastroenterology [address] [place] [address] Christopher Mcghee MD [address] [facility] [address] [place] [address] documented as of this encounter Procedures Procedure Name Priority Date/Time Associated Diagnosis Comments XR ABD ACUTE SERIES FLAT/UPRIGHT W UPRIGHT PA CHEST AND/OR DECUBS Routine 05/26/2024 10:18 AM EDT Acute constipation documented in this encounter Results * XR abdomen acute series flat/uprt with uprt pa chest and/or decubs (05/26/2024 10:18 AM EDT) Anatomical Region Laterality Modality X-Ray 05/26/2024 11:1 6 AM EDT Impressions 05/26/2024 11:18 AM EDT No radiographic evidence of acute intra-abdominal abnormality. Images reviewed, interpreted, and dictated by Dr. Doc Antonio. Transcribed by Melani Mayes PA-C. Narrative 05/26/2024 11:18 AM EDT ACUTE ABDOMINAL SERIES INDICATION: Constipation COMPARISON: ??None. FINDINGS: ??A PA view of the chest as well as upright and supine views of the abdomen were obtained. The cardiac and mediastinal silhouettes are within normal limits. ??The lungs are clear. ??There is no free air beneath the diaphragm. Views of the abdomen reveal a normal bowel gas pattern. ??There is no evidence of small bowel obstruction. ??No pathologic calcifications are identified. ??No acute osseous abnormalities are identified. A stimulator device overlies the left hemiabdomen. Procedure Note Dco Antonio MD - 05/26/2024 ACUTE ABDOMINAL SERIES INDICATION: Constipation COMPARISON: None. FINDINGS: A PA view of the chest as well as upright and supine views of the abdomen were obtained. The cardiac and mediastinal silhouettes are within normal limits. The lungs are clear. There is no free air beneath the diaphragm. Views of the abdomen reveal a normal bowel gas pattern. There is no evidence of small bowel obstruction. No pathologic calcifications are identified. No acute osseous abnormalities are identified. A stimulator device overlies the left hemiabdomen. IMPRESSION: No radiographic evidence of acute intra-abdominal abnormality. Images reviewed, interpreted, and dictated by Dr. Doc Antonio. Transcribed by Melani Mayes PA-C. us Danya Marcus APRN IMG DIAGNOSTIC IMAGING ORDERAB LES Final Result documented in this encounter Visit Diagnoses Diagnosis Acute constipation Unspecified constipation documented in this encounter Care Teams Technical Consultant Relationship Specialty Start Date End Date Uyen Hines MD [address] [place] [phone] PCP - General Family Medicine 02/11/23 Gee Quan, CERTIFIED HEARING INSTRUMENT DISPENSER [address] [place] [address] Nurse Practitioner 02/24/23 documented as of this encounter
--- OUTSIDE RECORDS SUMMARY | 2024-10-19 10:50 | XMS_ITS | Encounter Summary ---
Author Organization [employer] Address [address] [place] [address] Care Team Providers Care Blacksmith Supervisor Name Role Phone Uyen Hines MD Primary Care Provider [phone] Gee Quan SENIOR ENGINEER Unavailable [phone] Reason for Referral * Ultrasound (Routine) - Closed Specialty Diagnoses / Procedures Referred By Christopher yuan Referred To Contact Radiology Diagnoses Generalized abdominal pain Diarrhea, unspecified type Eosinophilic esophagitis Esophageal dysphagia Procedures US abdomen limited Josefina Ziegler PA-C [facility] Ultrasound [address] [place] [address] Phone: tel: fax: Referral ID Status Reason Start Date Expiration Date Visits Re quested Visits Authorized [id number] Closed 09/19/2023 03/17/2024 1 1 Reason for Visit * Ultrasound (Routine) - Closed Specialty Diagnoses / Procedures Referred By Christopher yuan Referred To Contact Radiology Diagnoses Generalized abdominal pain Diarrhea, unspecified type Eosinophilic esophagitis Esophageal dysphagia Procedures US abdomen limited Josefina Ziegler PA-C [facility] Ultrasound [address] [place] [address] Phone: tel: fax: Referral ID Status Reason Start Date Expiration Date Visits Re quested Visits Authorized [id number] Closed 09/19/2023 03/17/2024 1 1 Encounter Details Date Type Department Care Team (Latest Contact Info) Description 03/18/2024 1:30 PM EDT - 03/18/2024 11:59 PM EDT Hospital Encounter [facility] [address] [facility] [place] [address] Josefina Ziegler PA-C Generalized abdominal pain; Diarrhea, unspecified type; Eosinophilic esophagitis; Esophageal dysphagia Discharge Disposition: Home or Self Care Social [...] Date Ralf rded Speak language other than Burmese at home Not on file 12/11/2023 Want [...] (200 mcg total) by mouth. 04/23/2022 lisinopriL (PRINIVIL,ZESTRI L) 10 MG tablet Take 1 tablet (10 mg total) by mouth daily. 01/16/2023 sucralfate (CARAFATE) 100 mg/mL suspensionIndica tions:Eosinophil ic esophagitis,Esop hageal dysphagia Take 10 mLs (1 g total) by mouth 3 (three) times daily before meals. 900 mL 1 12/16/2023 TiZANidine (ZANAFLEX) 4 MG capsule Take 1 capsule (4 mg total) by mouth 3 (three) times daily. ubrogepant 100 mg Tab Take by mouth. Dupixent Pen 300 mg/2 mL PnIj Inject subcutaneously. 11/18/2023 4 pantoprazole (PROTONIX) 40 MG tablet Take 1 tablet (40 mg total) by mouth 2 (two) times daily. 01/16/2023 4 documented as of this encounter Miscellaneous Notes * Result Encounter Note - Danya Marcus APRN - 03/18/2024 1:30 PM EDT Pancreas and liver look ok on ultrasound. The bile duct was a little prominent which is thought to be related to your gallbladder surgery. We will check blood tests and talk about it further at your appt on 04/09. documented in this encounter Plan of Treatment Upcoming Encounters Date Type Department Care Team (Late st Contact Info) Description 12/28/2024 11:00 AM EST Office Visit [facility] Gastroenterology [address] [place] [address] Christopher Mcghee MD [address] [place] [address] documented as of this encounter Procedures Procedure Name Priority Date/Time Associated Diagnosis Comments US ABDOMEN LIMITED Routine 03/18/2024 2: 26 PM EDT Generalized abdominal pain Diarrhea, unspecified type Eosinophilic esophagitis Esophageal dysphagia documented in this encounter Results * US abdomen limited (03/18/2024 2:26 PM EDT) Anatomical Region Laterality Modality Abdomen Ultrasound 03/18/2024 3:39 PM EDT Impressions 03/18/2024 4:42 PM EDT Prominent common duct, favor post cholecystectomy state. Otherwise unremarkable. Images reviewed, interpreted, and dictated by Dr. Julia Dubose. Transcribed by Erendira Casanova PA-C. Narrative 03/18/2024 4:42 PM EDT RIGHT UPPER QUADRANT ULTRASOUND HISTORY: Dysphagia, generalized abdominal pain with diarrhea. PROCEDURE: Ultrasound images of the right upper quadrant were obtained. FINDINGS: Limited images of the pancreas are unremarkable. The liver parenchyma is homogeneous. The portal vein is patent with normal directional flow. The gallbladder is absent. The common duct measures 8 mm. This is dilated even after cholecystectomy. Limited images of the right kidney are unremarkable. The right kidney measures 11 cm. There is no ascites. Procedure Note Julia Dubose MD - 03/18/2024 RIGHT UPPER QUADRANT ULTRASOUND HISTORY: Dysphagia, generalized abdominal pain with diarrhea. PROCEDURE: Ultrasound images of the right upper quadrant were obtained. FINDINGS: Limited images of the pancreas are unremarkable. The liver parenchyma is homogeneous. The portal vein is patent with normal directional flow. The gallbladder is absent. The common duct measures 8 mm. This is dilated even after cholecystectomy. Limited images of the right kidney are unremarkable. The right kidney measures 11 cm. There is no ascites. IMPRESSION: Prominent common duct, favor post cholecystectomy state. Otherwise unremarkable. Images reviewed, interpreted, and dictated by Dr. Julia Dubose. Transcribed by Erendira Casanova PA-C. us Josefina Ziegler PA-C IMG US ORDERABLES Final Resul t documented in this encounter Visit Diagnoses Diagnosis Generalized abdominal pain Abdominal pain, generalized Diarrhea, unspecified type Eosinophilic esophagitis Esophageal dysphagia Dysphagia, pharyngoesophageal phase documented in this encounter Care Teams Blacksmith Supervisor Relationship Specialty Start Date End Date Uyen Hines MD [address] [place] [phone] PCP - General Family Medicine 02/11/23 Gee Quan, SENIOR ENGINEER [address] [place] [phone] Nurse Practitioner 02/24/23 documented as of this encounter
--- OUTSIDE RECORDS SUMMARY | 2024-10-19 10:50 | XMS_ITS | Encounter Summary ---
Author Organization [employer] Address [address] [place] [address] Care Team Providers Care Sales Engagement Executive Name Role Phone Uyen Hines MD Primary Care Provider [phone] Gee Quan POWER CUTTING MACHINE OPERATOR Unavailable [phone] Reason for Visit * Reason Onset Date Comments Results 04/27/2024 Encounter Details Date Type Department Care Team (Late st Contact Info) Description 04/27/2024 Telephone [facility] Gastroenterology [address] [place] [phone] Danya Marcus APRN Results Social History Tobacco Use Types Packs/Day Years [...] encounter Miscellaneous Notes * Telephone Encounter - Ulises Barbosa - 04/27/2024 11:36 AM EDT Pt called wanting to know her test results documented in this encounter Plan of Treatment Upcoming Encounters Date Type Department Care Team (Late st Contact Info) Description 12/28/2024 11:00 AM EST Office Visit [facility] Gastroenterology [address] [place] [address] Christopher Mcghee MD [address] [facility] [address] [place], [place] [id number] documented as of this encounter Visit Diagnoses Not on filedocumented in this encounter Care Teams Sales Engagement Executive Relationship Specialty Start Date End Date Ueyn Hines MD [address] [place] [phone] PCP - General Family Medicine 02/11/23 Gee Quan APRN [address] [place] [address] Nurse Practitioner 02/24/23 documented as of this encounter
--- OUTSIDE RECORDS SUMMARY | 2024-10-19 10:50 | XMS_ITS | Encounter Summary ---
Author Organization [facility] Address [address] [place] [address] Care Team Providers Care Loft Worker Apprentice Name Role Phone Uyen Hines MD Primary Care Provider [phone] Gee Quan APRN Unavailable [phone] Reason for Visit * Reason Comments Follow-up Pt reports a pain pu mp has been implanted in her back and also a new diagnosis of addisons. Encounter Details Date Type Department Care Team (Latest Contact Info) Description 04/09/2024 1:20 PM EDT Office Visit [facility] Gastroenterology [address] [place] [phone] Danya Marcus APRN Gastroesophageal reflux disease with esophagitis without hemorrhage (Primary Dx); Diarrhea, unspecified type; Common bile duct dilation Social History Tobacco [...] Sign Reading Time Taken Comments Blood Pressure 108/76 04/09/2024 1:14 PM EDT Pulse 80 04/09/2024 1:14 PM EDT Temperature - - Respiratory Rate 20 04/09/2024 1:14 PM EDT Oxygen Saturation - - Inhaled Oxygen Concentration - - Weight 106.6 kg (235 lb) 04/09/2024 1:14 PM EDT Height 162.6 cm (5' 4 ) 04/09/2024 1:14 PM EDT Body Mass Index 40.34 04/09/2024 1:14 PM EDT documented in this encounter Progress Notes * Danya Marcus, CERAMICS ARTIST - 04/09/2024 1:20 PM EDT Gastroenterology Follow up Subjective: Chief Complaint Patient presents with ??? Follow-up Pt reports a pain pump has been implanted in her back and also a new diagnosis of addisons. Tessie Roa is a 43 y.o. female with a pmh of HTN, CKD, Hypothyroidism GERD with EOE who is here for f/u. She was started on Dupixent for GERD sx which are still not controlled, Last EGD 12/2023 showed Esophagitis and small hiatal hernia were present. One benign appearing intrinsic mild stenosis was found and dilated to 16.5mm. Stomach and duodenum appeared normal. ?? Path: Distal esophagus showed reflux esophagitis. Mid esophagus showed up to 5 eosinophils/hpf (stable/improved from prior scope) She has chronic diarrhea with negative colonoscopy in 2021. IBD serology and stool studies for infectious etiology and inflammatory proteins were negative. She could not swallow PillCam and insurancedenied MR enterography. Requested repeat labs and u/s. She has had elevation in ESR and CRP on labsfrom 12/2023. Recent Abdominal u/s showed normal liver and prominent CBD favoring post-op state. She has had no elevation in LFT's to suggest obstruction. ?? Interim hx significant for possible Adrenal Insufficiency which is being managed by Endocrinology. Had low am cortisol level. Currently on hydrocortisone taper. Her sx of fatigue have not improved onsteroids. Work-up is ongoing. She has also had intrathecal pump placed. Allergies: No Known Allergies Medications: Current Outpatient [...] by mouth daily., Disp: , Rfl: ??? busPIRone (BUSPAR) 7.5 MG tablet, Take by mouth., Disp: , Rfl: ??? carvediloL (COREG) 6.25 MG tablet, Take 1 tablet (6.25 mg total) by mouth 2 (two) times daily with breakfast and dinner., Disp: , Rfl: ??? colestipoL (COLESTID) 1 gram tablet, Take 1 tablet (1 g total) by mouth 2 (two) times daily., Disp: 60 tablet, Rfl: 5 ??? Dupixent Pen 300 mg/2 mL PnIj, Inject subcutaneously., Disp: , Rfl: ??? escitalopram oxalate (LEXAPRO) 20 MG tablet, Take 1 tablet (20 mg total) by mouth., Disp: , Rfl: ??? levothyroxine (SYNTHROID, LEVOTHROID) 200 MCG tablet, Take 1 tablet (200 mcg total) by mouth., Disp: , Rfl: ??? lisinopriL (PRINIVIL,ZESTRIL) 10 MG tablet, Take 1 tablet (10 mg total) by mouth daily., Disp: , Rfl: ??? pantoprazole (PROTONIX) 40 MG tablet, Take 1 tablet (40 mg total) by mouth 2 (two) times daily., Disp: 180 tablet, Rfl: 2 ??? sucralfate (CARAFATE) 100 mg/mL suspension, Take [...] History: Past Medical History: Diagnosis Date ??? Owen's disease (HCC) ??? Anxiety ??? Chronic kidney disease ??? CKD (chronic kidney disease), stage III (HCC) ??? Crohn's disease (HCC) ??? Depression ??? Diskitis Buldging disk [...] BALLOON DILATION; Surgeon: Christopher Mcghee MD; Location: [facility]; Service: Gastroenterology; Laterality: N/A; ??? UPPER ENDOSCOPY,DILATATION N/A 12/18/2023 Procedure: EGD, WITH BALLOON DILATION; Surgeon: Christopher Mcghee MD; Location: [facility]; Service: Gastroenterology; Laterality: N/A; Family History Problem Relation Age of Onset ??? Heart disease Father ??? Colon cancer Maternal Grandmother Social History Tobacco Use ??? Smoking status: Never ??? Smokeless tobacco: Never Substance Use Topics ??? Alcohol use: Never Review of Systems: Review of Systems Constitutional: Positive for malaise/fatigue. Negative for chills and fever. Respiratory: Negative for shortness of breath. Cardiovascular: Negative for chest pain. Gastrointestinal: Positive for abdominal pain (crampy), diarrhea and nausea. Negative for melena. Neurological: Positive for dizziness. Negative for loss of consciousness. Objective: BP 108/76 Pulse 80 Resp 20 Ht 1.626 m (5' 4 ) Wt 106.6 kg (235 lb) BMI 40.34 kg/m?? Physical Exam Vitals reviewed. Constitutional: General: She is not in acute distress. HENT: Mouth/Throat: Mouth: Mucous membranes are moist. Eyes: Conjunctiva/sclera: Conjunctivae normal. Cardiovascular: Rate and Rhythm: Normal rate and regular rhythm. Heart sounds: Normal heart sounds. Pulmonary: Effort: Pulmonary effort is normal. No respiratory distress. Breath sounds: Normal breath sounds. Abdominal: General: There is no distension. Palpations: Abdomen is soft. Tenderness: There is no abdominal tenderness. Musculoskeletal: Cervical back: Neck supple. Lymphadenopathy: Cervical: No cervical adenopathy. Skin: General: Skin is warm and dry. Coloration: Skin is not jaundiced or pale. Neurological: General: No focal deficit present. Mental Status: She is alert and oriented to person, place, and time. Psychiatric: Behavior: Behavior normal. Thought Content: Thought content normal. Assessment: 1. Gastroesophageal reflux disease with esophagitis without hemorrhage 2. Diarrhea, unspecified type 3. Common bile duct dilation Plan: -Continue dupixent and pantoprazole. -Repeat stools tests calprotectin, lactoferrin given elevated ESR/CRP. -Stool pancreatic elastace. -Trial of colestid for diarrhea since she is s/p CCY -CBC, CMP, Lipase, amylase. -Consider reordering MRI enterography. She has new thcal pain pump so would need to check field care manager's recommendation on MRI Safety. Most devices are MRI compatible -RTC 3 months. Orders Placed This Encounter Procedures ??? Calprotectin, Fecal by Immunoassay(SENDOUT) ??? Lactoferrin, Fecal by ADELAIDE(SENDOUT) ??? Pancreatic Elastase Fecal by Immunoassay(SENDOUT) ??? Ova And Parasite Examination ??? Amylase ??? CBC with automated diff ??? Comprehensive metabolic panel ??? Lipase Requested Prescriptions Signed Prescriptions Disp Refills ??? pantoprazole (PROTONIX) 40 MG tablet 180 tablet 2 Sig: Take 1 tablet (40 mg total) by mouth 2 (two) times daily. ??? colestipoL (COLESTID) 1 gram tablet 60 tablet 5 Sig: Take 1 tablet (1 g total) by mouth 2 (two) times daily. Patient instructions given. . documented in this encounter Plan of Treatment Upcoming Encounters Date Type Department Care Team (Late st Contact Info) Description 12/28/2024 11:00 AM EST Office Visit [facility] Gastroenterology [address] [place] [address] Christopher Mcghee MD [address] [facility] [address] [place] [address] documented as of this encounter Results * (ABNORMAL) Pancreatic Elastase Fecal by Immunoassay(SENDOUT) (04/10/2024 6:10 PM EDT) Pancreatic Elastase, Fecal 18(L) >=100 ug/g 04/13/2024 11:06 PM EDT [facility] Comment: REFERENCE INTERVAL: Pancreatic Elastase Fecal by ?Immunoassay ??Less than 100 ug/g............Severe insufficiency ??100 - 199 ug/g................Moderate insufficiency ??200 ug/g or greater...........Normal INTERPRETIVE INFORMATION: Pancreatic Elastase ?Fecal by Immunoassay Reference intervals do not apply for infants less than one month old. Performed By: [place] [address] Psychiatric Nurse Practitioner: Pancho Estrada MD, PhD CLIA Number: [id number] Stool 04/10/2024 6:10 PM EDT 04/10/2024 10:21 PM EDT Danya Marcus [facility] MICROBIOLOGY - GENERAL ORDERAB LES Final Result Performing Organization Address [facility] de Phone Number [address] [phone] * (ABNORMAL) Lactoferrin, Fecal by ADELAIDE(SENDOUT) (04/10/2024 6:10 PM EDT) Lactoferrin, Fecal by ADELAIDE Positive( A) Negative 04/13/2024 11:36 PM EDT [facility] Comment: A positive result is indicative of the presence of lactoferrin, a marker for fecal leukocytes. Performed By: [place] [address] Psychiatric Nurse Practitioner: Pancho Estrada MD, PhD CLIA Number: [id number] Stool 04/10/2024 6:10 PM EDT 04/10/2024 10:21 PM EDT Danya Marcus APRN MICROBIOLOGY - GENERAL ORDERAB LES Final Result Performing Organization Address [facility] de Phone Number [address] [phone] * (ABNORMAL) Calprotectin, Fecal by Immunoassay(SENDOUT) (04/10/2024 6:10 PM EDT) Calprotectin, Fecal 476(H) <=49 ug/g 04/15/2024 3:44 PM EDT [facility] Comment: REFERENCE INTERVAL: Calprotectin, Fecal by Immunoassay ??Less than 50 ug/g.........Normal ??50-120 ug/g...............Borderline elevated, test should be ?re-evaluated in 4-6 weeks. ??121 ug/g or greater.......Elevated Performed By: [facility] [address] [place] [address] Psychiatric Nurse Practitioner: Pancho Estrada MD, PhD CLIA Number: [id number] Stool 04/10/2024 6:10 PM EDT 04/10/2024 10:21 PM EDT Danya Marcus APRN MICROBIOLOGY - GENERAL ORDERAB LES Final Result Performing Organization Address [facility] de Phone Number [address] [phone] * Lipase (04/09/2024 2:25 PM EDT) Lipase 37 16 - 77 U/L 04/09/2024 3:07 PM EDT [facility] Blood Venipuncture / Unknown 04/09/2024 2:25 PM EDT 04/09/2024 2:36 PM EDT Danya Marcus APRN LAB BLOOD ORDERABLES Final Res ult Performing Organization Address City/[facility] Co de Phone Number [facility] [address] [place] [address] * (ABNORMAL) Comprehensive metabolic panel (04/09/2024 2:25 PM EDT) Sodium 136 136 - 145 meq/L 04/09/2024 3:07 PM EDT [facility] Potassium 4.2 3.5 - 5.1 meq/L 04/09/2024 3:07 PM EDT [facility] Chloride 103 98 - 107 meq/L 04/09/2024 3:07 PM EDT [facility] CO2 28 21 - 32 meq/L 04/09/2024 3:07 PM EDT [facility] Calcium 8.8 8.5 - 10.1 mg/dL 04/09/2024 3:07 PM EDT [facility] Glucose 85 70 - 99 mg/dL 04/09/2024 3:07 PM EDT [facility] BUN 8 7 - 18 mg/dL 04/09/2024 3:07 PM EDT [facility] Creatinine 1.32(H) 0.55 - 1.10 mg/dL 04/09/2024 3:07 PM EDT [facility] BUN/Creatinine 6 04/09/2024 3:07 PM EDT [facility] Albumin 3.3(L) 3.4 - 5.0 g/dL 04/09/2024 3:07 PM EDT [facility] Alkaline Phosphatase 70 46 - 116 U/L 04/09/2024 3:07 PM EDT [facility] ALT 23 12 - 78 U/L 04/09/2024 3:07 PM EDT [facility] AST 20 15 - 37 U/L 04/09/2024 3:07 PM EDT [facility] Total Bilirubin 0.5 0.2 - 1.0 mg/dL 04/09/2024 3:07 PM EDT [facility] Protein, Total 7.2 6.4 - 8.2 gm/dL 04/09/2024 3:07 PM EDT [facility] Anion Gap 9(L) 11 - 22 04/09/2024 3:07 PM EDT [facility] A/G Ratio 0.8 04/09/2024 3:07 PM EDT [facility] Globulin 3.9 g/dL 04/09/2024 3:07 PM EDT [facility] Osmolality Calc 269.5 3:07 PM EDT [facility] eGFR (mL/min/1.73m2) 52(L) >=60 mL/min/1.7 3m2 04/09/2024 3:07 PM EDT [facility] Comment:ESTIMATED GFR IS NOT ACCURATE CREATININE CLEARANCE IN PREDICTING GLOMERULAR FILTRATION RATE. ESTIMATED GFR IS NOT APPLICABLE FOR DIALYSIS PATIENTS. Blood Venipuncture / Unknown 04/09/2024 2:25 PM EDT 04/09/2024 2:36 PM EDT us Danya Marcus CERAMICS ARTIST LAB BLOOD ORDERABLES Final Res ult [facility] [address] [place], [place] [address] [phone] * (ABNORMAL) CBC with automated diff (04/09/2024 2:25 PM EDT) WBC 6.3 4.8 - 10.8 K/??L 04/09/2024 2:56 PM EDT [facility] RBC 4.76 3.50 - 5.20 M/??L 04/09/2024 2:56 PM EDT [facility] Hemoglobin 13.5 11.7 - 15.8 GM/DL 04/09/2024 2:56 PM EDT [facility] Hematocrit 40.9 35.0 - 47.0 % 04/09/2024 2:56 PM EDT [facility] MCV 86 81 - 101 fL 04/09/2024 2:56 PM EDT [facility] MCH 28.4 27.0 - 34.0 pg 04/09/2024 2:56 PM EDT [facility] MCHC 33.0 32.0 - 36.0 GM/DL 04/09/2024 2:56 PM EDT [facility] RDW 14.6(H) 11.5 - 14.5 % 04/09/2024 2:56 PM EDT [facility] Platelets 385 150 - 400 K/CU MM 04/09/2024 2:56 PM EDT [facility] MPV 8.9(L) 9.4 - 12.4 fL 04/09/2024 2:56 PM EDT [facility] Nucleated Red Blood Cell 0.0 0 - 0.2 % 04/09/2024 2:56 PM EDT [facility] % Neutros 48 37 - 80 % 04/09/2024 2:56 PM EDT [facility] % Lymphs 36 10 - 50 % 04/09/2024 2:56 PM EDT [facility] % Monos 11 5 - 13 % 04/09/2024 2:56 PM EDT [facility] % Eos 3 0 - 7 % 04/09/2024 2:56 PM EDT [facility] % Baso 1 0 - 3 % 04/09/2024 2:56 PM EDT [facility] NRBC Absolute <0.01 0 - 0.012 K/ul 04/09/2024 2:56 PM EDT [facility] # Neutros 3.03 2.00 - 6.90 K/??L 04/09/2024 2:56 PM EDT [facility] # Lymphs 2.28 0.60 - 3.40 K/??L 04/09/2024 2:56 PM EDT [facility] # Monos 0.71 0.00 - 0.90 K/??L 04/09/2024 2:56 PM EDT [facility] # Eos 0.21 0.00 - 0.70 K/??L 04/09/2024 2:56 PM EDT [facility] # Baso 0.09 0.00 - 0.20 K/??L 04/09/2024 2:56 PM EDT [facility] Immature Granulocytes-Re lative 0.30 % 04/09/2024 2:56 PM EDT [facility] # IG 0.02(H) 0.00 - 0.00 K/uL 04/09/2024 2:56 PM EDT [facility] Blood Venipuncture / Unknown 04/09/2024 2:25 PM EDT 04/09/2024 2:36 PM EDT Narrative [facility] - 04/09/2024 2:56 PM EDT When CBC w/ Auto Diff [...] Flag noted Atypical Lymph flag noted us Danya Marcus CERAMICS ARTIST LAB BLOOD ORDERABLES Final Res ult Performing Organization Address City/[facility]/ZIP Co de Phone Number [facility] [address] [place] [address], [facility] [phone] * Amylase (04/09/2024 2:25 PM EDT) Amylase 53 25 - 115 U/L 04/09/2024 3:07 PM EDT [facility] Blood Venipuncture / Unknown 04/09/2024 2:25 PM EDT 04/09/2024 2:36 PM EDT us Danya Marcus CERAMICS ARTIST LAB BLOOD ORDERABLES Final Res ult Performing Organization Address City/[facility]/ZIP Co de Phone Number [facility] [address] [place] [address], [facility] [phone] documented in this encounter Visit Diagnoses Diagnosis Gastroesophageal reflux disease with esophagitis without hemorrhage- Primary Diarrhea, unspecified type Common bile duct dilation documented in this encounter Care Teams Loft Worker Apprentice Relationship Specialty Start Date End Date Uyen Hines MD [address] [place] [phone] PCP - General Family Medicine 02/11/23 Gee Quan APRN [address] [place] [address] Nurse Practitioner 02/24/23 documented as of this encounter
--- OUTSIDE RECORDS SUMMARY | 2024-10-19 10:50 | XMS_ITS | Encounter Summary ---
Author Organization [employer] Address [address] [place] [address] Care Team Providers Care Agency Service Coordinator Name Role Phone Uyen Hines MD Primary Care Provider [phone] Gee Quan APRN Unavailable [phone] Reason for Visit * Reason Comments Follow-up Presents for F/U . P t reports non worsening abdominal cramping with intermittent episodes of constipation/diarrhea.Denies n/v. Encounter Details Date Type Department Care Team (Late st Contact Info) Description 01/01/2024 9:00 AM EST Office Visit [facility] Gastroenterology [address] [place] [phone] Danya Marcus APRN Eosinophilic esophagitis (Primary Dx); Diarrhea, unspecified type; Abnormal stools; Abdominal pain, chronic, generalized Social History Tobacco Use Types Packs/Day Years [...] Date Ralf rded Speak language other than Kosovan at home Not on file 12/11/2023 Want [...] Sign Reading Time Taken Comments Blood Pressure 97/66 01/01/2024 8:57 AM EST Pulse 90 01/01/2024 8:57 AM EST Temperature - - Respiratory Rate 20 01/01/2024 8:57 AM EST Oxygen Saturation 96% 01/01/2024 8:57 AM EST Inhaled Oxygen Concentration - - Weight 106.6 kg (235 lb) 01/01/2024 8:57 AM EST Height - - Body Mass Index 40.34 12/18/2023 9:26 AM EST documented in this encounter Progress Notes * Danya Marcus APRN - 01/01/2024 9:00 AM EST Gastroenterology Follow up Subjective: Chief Complaint Patient presents with ??? Follow-up Presents for F/U . Pt reports non worsening abdominal cramping with intermittent episodes of constipation/diarrhea.Denies n/v. Tessie Roa is a 43 y.o. female with a hx of EOE for f/u after recent EGD. Her dysphagia hasimproved since dilation. Had been losing weight, but no wt loss this visit. She is up 5 lbs. No vomiting, hematemesis. She continues to take protonix 40 mg bid, carafate, and Dupixent (started late October 2023). She feels that she is tolerating the Dupixent. 12/18/23 EGD w/ dilation. Findings: Esophagitis and small hiatal hernia were present. One benign appearing intrinsic mild stenosis was found and dilated to 16.5mm. Stomach and duodenum appeared normal. Bx of Path: Distal esophagus showed reflux esophagitis. Mid esophagus showed up to 5 eosinophils/hpf (stable/improved from prior scope) 02/2023 EGD w/ dilation. Path: Distal esophagus showed up to 5 eosinophils/hpf and mid-esophagus showed up to 17/hpf. She had previous normal esophageal motility study at [facility] Has seen overhead irrigator and had no food allergies when tested. She has personally tried elimination of milk/dairy, seafood, and nuts without change in her sx. Has not tried elimination of wheat, soy, or eggs. Does not eat sesame. She also has hx of chronic diarrhea and intermittent rectal bleeding. Colonoscopy in 2021 was normal other than internal hemorrhoids. Stool studies negative for enteric pathogens and inflammatory proteins at that time. ESR and Sed rate have been elevated in the past. IBD Serology negative 09/2022. (Of note, Crohn's disease was listed on her problem list but she has no prior knowledge or documentation of this documentation on record that I have reviewed) She was unable to swallow Pill Cam. MR Enterography ordered but not authorized by insurance. Abdominal u/s and CBC, CMP required prior to resubmitting MRI request. Labs done. Abdominal U/S is scheduled on 01/07. She continues to have episodes of constipation alternating with small caliber brown stool mixed with bright blood, and liquid stool with foul odor. No melena. No recent antibiotics, fevers, or vomiting. She has chronic generalized abdominal pain. Tried probiotics but these worsen constipation. Allergies: No Known Allergies Medications: Current Outpatient [...] breakfast and dinner., Disp: , Rfl: ??? Dupixent Pen 300 mg/2 mL PnIj, [...] by mouth 2 (two) times daily., Disp: , Rfl: ??? sucralfate (CARAFATE) 100 mg/mL suspension, Take [...] History: Past Medical History: Diagnosis Date ??? Anxiety ??? Chronic kidney disease ??? CKD (chronic kidney disease), stage III (HCC) ??? Crohn's disease (HCC) ??? Depression ??? Diskitis Buldging disk ??? Eosinophilic esophagitis ??? Hypertension ??? Hypothyroid ??? Migraines ??? SANJU on CPAP ??? Stroke (cerebrum) (HCC) 01/24/2023 Past Surgical History: Procedure Laterality Date ??? SECTION ??? CHOLECYSTECTOMY ??? COLONOSCOPY 2021 ??? HYSTERECTOMY ??? SHOULDER SURGERY Left x2 ??? TUBAL LIGATION ??? UPPER ENDOSCOPY,DILATATION N/A 02/24/2023 Procedure: EGD, WITH BALLOON DILATION; Surgeon: Christopher Mcghee MD; Location: [facility]; Service: Gastroenterology; Laterality: N/A; ??? UPPER ENDOSCOPY,DILATATION N/A 12/18/2023 Procedure: EGD, WITH BALLOON DILATION; Surgeon: Christopher Mcghee MD; Location: [facility]; Service: Gastroenterology; Laterality: N/A; Family History Problem Relation Age of Onset ??? Heart disease Father ??? Colon cancer Maternal Grandmother Social History Tobacco Use ??? Smoking status: Never ??? Smokeless tobacco: Never Substance Use Topics ??? Alcohol use: Never Review of Systems: Review of Systems Constitutional: Negative for fever and weight loss. Gastrointestinal: Positive for abdominal pain, blood in stool, constipation and diarrhea. Negative for heartburn, melena, nausea and vomiting. Skin: Negative for rash. Neurological: Negative for dizziness and loss of consciousness. Endo/Heme/Allergies: Negative for environmental allergies. Objective: BP 97/66 Pulse 90 Resp 20 Wt 106.6 kg (235 lb) SpO2 96% BMI 40.34 kg/m?? Physical Exam Vitals reviewed. Constitutional: General: She is not in acute distress. Appearance: Normal appearance. She is not ill-appearing. HENT: Head: Normocephalic. Mouth/Throat: Mouth: Mucous membranes are moist. Eyes: Conjunctiva/sclera: Conjunctivae normal. Cardiovascular: Rate and Rhythm: Normal rate and regular rhythm. Pulses: Normal pulses. Pulmonary: Effort: Pulmonary effort is normal. No respiratory distress. Breath sounds: Normal breath sounds. Abdominal: General: Bowel sounds are normal. There is no distension. Palpations: Abdomen is soft. Tenderness: There is no abdominal tenderness. Skin: General: Skin is warm and dry. Capillary Refill: Capillary refill takes less than 2 seconds. Coloration: Skin is not jaundiced or pale. Neurological: General: No focal deficit present. Mental Status: She is alert and oriented to person, place, and time. Psychiatric: Mood and Affect: Mood normal. Thought Content: Thought content normal. Office Visit on 01/01/2024 Component Date Value Ref Range Status ??? Sed Rate 01/01/2024 45 (H) 0 - 20 mm/HR Final ??? CRP 01/01/2024 2.21 (H) 0.05 - 0.30 mg/dL Final Admission on 12/18/2023, Discharged on 12/18/2023 Component Date Value Ref Range Status ??? AP RESULT 12/18/2023 See Note: Final Lab Patient Walk-In on 12/16/2023 Component Date Value Ref Range Status ??? Color, UA 12/16/2023 Straw Final ??? Clarity, UA 12/16/2023 Clear Final ? ? Specific Magdalena, UA 12/16/2023 <=1.005 1.002 - 1.030 Final ??? pH, UA 12/16/2023 6.0 5.0 - 9.0 Final ??? Leukocytes, UA 12/16/2023 Negative Negative Final ??? Nitrite, UA 12/16/2023 Negative Negative Final ??? Protein, UA 12/16/2023 Negative Negative Final ??? Glucose, UA 12/16/2023 Negative Negative Final ??? Ketones, UA 12/16/2023 Negative Negative Final ??? Bilirubin, UA 12/16/2023 Negative Negative Final ??? Blood, UA 12/16/2023 Negative Negative Final ??? Urobilinogen, UA 12/16/2023 1.0 mg/dL Normal Final ??? Specimen Source 12/16/2023 Urine, Clean Catch Final ??? WBC 12/16/2023 9.2 4.8 - 10.8 K/??L Final ??? RBC 12/16/2023 4.30 3.50 - 5.20 M/??L Final ??? Hemoglobin 12/16/2023 12.7 11.7 - 15.8 GM/DL Final ??? Hematocrit 12/16/2023 39.1 35.0 - 47.0 % Final ??? MCV 12/16/2023 91 81 - 101 fL Final ??? MCH 12/16/2023 29.5 27.0 - 34.0 pg Final ??? MCHC 12/16/2023 32.5 32.0 - 36.0 GM/DL Final ??? RDW 12/16/2023 14.5 11.5 - 14.5 % Final ??? Platelets 12/16/2023 459 (H) 150 - 400 K/CU MM Final ??? MPV 12/16/2023 8.4 (L) 9.4 - 12.4 fL Final ??? Nucleated Red Blood Cell 12/16/2023 0.0 0 - 0.2 % Final ??? % Neutros 12/16/2023 64 37 - 80 % Final ??? % Lymphs 12/16/2023 24 10 - 50 % Final ??? % Monos 12/16/2023 8 5 - 13 % Final ??? % Eos 12/16/2023 3 0 - 7 % Final ??? % Baso 12/16/2023 1 0 - 3 % Final ??? NRBC Absolute 12/16/2023 0.00 0 - 0.12 K/ul Final ??? # Neutros 12/16/2023 5.84 2.00 - 6.90 K/??L Final ??? # Lymphs 12/16/2023 2.22 0.60 - 3.40 K/??L Final ??? # Monos 12/16/2023 0.76 0.00 - 0.90 K/??L Final ??? # Eos 12/16/2023 0.24 0.00 - 0.70 K/??L Final ??? # Baso 12/16/2023 0.06 0.00 - 0.20 K/??L Final ??? Immature Granulocytes-Relative 12/16/2023 0.40 (H) 0.00 - 0.00 % Final ??? # IG 12/16/2023 0.04 (H) 0.00 - 0.00 K/uL Final ??? Sodium 12/16/2023 133 (L) 136 - 145 meq/L Final ??? Potassium 12/16/2023 4.5 3.5 - 5.1 meq/L Final ??? Chloride 12/16/2023 100 98 - 107 meq/L Final ??? CO2 12/16/2023 28 21 - 32 meq/L Final ??? Calcium 12/16/2023 9.1 8.5 - 10.1 mg/dL Final ??? Glucose 12/16/2023 104 (H) 70 - 99 mg/dL Final ??? BUN 12/16/2023 16 7 - 18 mg/dL Final ??? Creatinine 12/16/2023 1.24 (H) 0.55 - 1.10 mg/dL Final ??? BUN/Creatinine 12/16/2023 13 Final ??? Albumin 12/16/2023 3.3 (L) 3.4 - 5.0 g/dL Final ??? Alkaline Phosphatase 12/16/2023 82 46 - 116 U/L Final ??? ALT 12/16/2023 12 12 - 78 U/L Final ??? AST 12/16/2023 16 15 - 37 U/L Final ??? Total Bilirubin 12/16/2023 0.6 0.2 - 1.0 mg/dL Final ??? Protein, Total 12/16/2023 7.5 6.4 - 8.2 gm/dL Final ??? Anion Gap 12/16/2023 10 (L) 11 - 22 Final ??? A/G Ratio 12/16/2023 0.8 Final ??? Globulin 12/16/2023 4.2 g/dL Final ??? Osmolality Calc 12/16/2023 267.9 Final ? ? eGFR (mL/min/1.73m2) 12/16/2023 56 (L) >=60 mL/min/1.73m2 Final Office Visit on 12/16/2023 Component Date Value Ref Range Status ??? Lipase 12/16/2023 24 16 - 77 U/L Final Assessment: 1. Eosinophilic esophagitis 2. Diarrhea, unspecified type 3. Abnormal stools 4. Abdominal pain, chronic, generalized Plan: 1. Continue dupixent and PPI twice daily. Carafate x 6-8 weeks. 2. Elimination diet discussed and recommended. Written instructions provided. 3. Await RUQ u/s results and resubmit request for MR enterography approval. 4. ESR, CRP. 5. Stool for O&P, occult blood, pancreatic elastace, calprotectin and lactoferrin. 6. F/u 3 months Orders Placed This Encounter Procedures ??? Calprotectin, Fecal by Immunoassay(SENDOUT) ??? Lactoferrin, Fecal by ADELAIDE(SENDOUT) ??? Ova And Parasite Examination ??? Occult Blood Screen ??? Pancreatic Elastase Fecal by Immunoassay(SENDOUT) ??? Sedimentation rate ??? C-Reactive Protein Requested Prescriptions No prescriptions requested or ordered in this encounter Patient instructions given. . GLES ROOFER documented in this encounter Plan of Treatment Upcoming Encounters Date Type Department Care Team (Late st Contact Info) Description 12/28/2024 11:00 AM EST Office Visit [facility] Gastroenterology [address] [place] [phone] Christopher Mcghee MD [address] [place] [address] documented as of this encounter Procedures Procedure Name Priority Date/Time Associated Diagnosis Comments C-REACTIVE PROTEIN Routine 01/01/2024 10 :21 AM EST Eosinophilic esophagitis Diarrhea, unspecified type SEDIMENTATION RATE Routine 01/01/2024 10 :21 AM EST Eosinophilic esophagitis Diarrhea, unspecified type documented in this encounter Results * Occult Blood Screen (04/11/2024 5:43 AM EDT) Pathologist [facility] OCCULT BLOOD RESULT Negative Negative 04/11/2024 6:41 AM EDT [facility] Stool FECES / Unknown 04/11/2024 5 :43 AM EDT 04/11/2024 5:44 AM EDT us Danya Marcus APRN BODY FLUIDS AND STOOLS ORDERAB LES Final Result [facility] [address] [place] [address], [facility] [phone] * (ABNORMAL) C-Reactive Protein (01/01/2024 10:21 AM EST) Pathologist [facility] CRP 2.21(H) 0.05 - 0.30 mg/dL 01/01/2024 10:47 AM EST [facility] Blood Venipuncture / Unknown 01/01/2024 10:21 AM EST 01/01/2024 10:23 AM EST us Danya Marcus GIS MANAGER LAB BLOOD ORDERABLES Final Res ult [facility] [address] [place] [address] * (ABNORMAL) Sedimentation rate (01/01/2024 10:21 AM EST) Sed Rate 45(H) 0 - 20 mm/HR 01/01/2024 10:53 AM EST [facility] Blood Venipuncture / Unknown 01/01/2024 10:21 AM EST 01/01/2024 10:22 AM EST us Danya Marcus APRN LAB BLOOD ORDERABLES Final Res ult [facility] [address] [place] [address] documented in this encounter Visit Diagnoses Diagnosis Eosinophilic esophagitis- Primary Diarrhea, unspecified type Abnormal stools Abnormal feces Abdominal pain, chronic, generalized documented in this encounter Care Teams Agency Service Coordinator Relationship Specialty Start Date End Date Uyen Hines MD [address] [place] [phone] PCP - General Family Medicine 02/11/23 Gee Quan APRN [address] [place] [phone] Nurse Practitioner 02/24/23 documented as of this encounter
--- OUTSIDE RECORDS SUMMARY | 2024-10-19 10:50 | XMS_ITS | Encounter Summary ---
Author Organization [email or web address] Address [address] [place] [address] Care Team Providers Care Spa Technician Name Role Phone Uyen Hines MD Primary Care Provider [phone] Gee Quan APRN Unavailable [phone] Encounter Details Date Type Department Care Team (Latest Contact Info) Description 01/01/2024 11:30 AM EST Lab Patient Walk-In [facility] [address] [place] [phone] Danya Marcus APRN Diarrhea, unspecified type Social History Tobacco Use [...] Date Ralf rded Speak language other than Malagasy at home Not on file 12/11/2023 Want [...] Visit [facility] Gastroenterology [address] [place] [address] Christopher Mcghee MD [address] [facility] [address] [place] [address] documented as of this encounter Procedures Procedure Name Priority Date/Time Associated Diagnosis Comments OCCULT BLOOD SCREEN Routine 04/11/2024 5 :43 AM EDT Diarrhea, unspecified type C-REACTIVE PROTEIN Routine 01/01/2024 10 :21 AM EST Eosinophilic esophagitis Diarrhea, unspecified type SEDIMENTATION RATE Routine 01/01/2024 10 :21 AM EST Eosinophilic esophagitis Diarrhea, unspecified type documented in this encounter Results * Occult Blood Screen (04/11/2024 5:43 AM EDT) OCCULT BLOOD RESULT Negative Negative 04/11/2024 6:41 AM EDT [facility] Stool FECES / Unknown 04/11/2024 5 :43 AM EDT 04/11/2024 5:44 AM EDT us Danya Marcus WOOD CABINET FINISHER BODY FLUIDS AND STOOLS ORDERAB LES Final Result [facility] [address] [place] [address], [facility] [phone] documented in this encounter Visit Diagnoses Diagnosis Diarrhea, unspecified type documented in this encounter Care Teams Spa Technician Relationship Specialty Start Date End Date Uyen Hines MD [address] [place] [phone] PCP - General Family Medicine 02/11/23 Gee Quan APRN [address] [place] [phone] Nurse Practitioner 02/24/23 documented as of this encounter
--- OUTSIDE RECORDS SUMMARY | 2024-10-19 10:50 | XMS_ITS | Encounter Summary ---
Author Organization [employer] Address [address] [place] [address] Care Team Providers Care Core Composer Feeder Name Role Phone Uyen Hines MD Primary Care Provider [phone] Gee Quan CLAIMS TECHNICIAN Unavailable [phone] Reason for Visit * Reason Onset Date Comments Results 04/20/2024 Encounter Details Date Type Department Care Team (Late st Contact Info) Description 04/20/2024 Telephone [facility] Gastroenterology [address] [place] [phone] Kacy Cabrera, [facility] Results Social History Tobacco Use Types Packs/Day [...] Date Ralf rded Speak language other than Luxembourger at home Not on file 12/11/2023 Want [...] Telephone Encounter - Kacy Cabrera CMA - 04/20/2024 1:44 PM EDT Patient called wanting to know the results of her stool studies. Can you please review. documented in this encounter Plan of Treatment Upcoming Encounters Date Type Department Care Team (Late st Contact Info) Description 12/28/2024 11:00 AM EST Office Visit [facility] Gastroenterology [address] [place] [phone] Christopher Mcghee MD [address] [facility] [address] [place] [address] documented as of this encounter Visit Diagnoses Not on filedocumented in this encounter Care Teams Core Composer Feeder Relationship Specialty Start Date End Date Uyen Hines MD [address] [place] [phone] PCP - General Family Medicine 02/11/23 Gee Quan APRN [address] [place] [phone] Nurse Practitioner 02/24/23 documented as of this encounter
--- OUTSIDE RECORDS SUMMARY | 2024-10-19 10:50 | XMS_ITS | Encounter Summary ---
Author Organization [employer] Address [address] [place] [address] Care Team Providers Care Ski Edge Painter Name Role Phone Uyen Hines MD Primary Care Provider [phone] Gee Quan APRN Unavailable [phone] Reason for Referral * Diagnostic X-Ray (Routine) - Closed Specialty Diagnoses / Procedures Referred By Christopher yuan Referred To Contact Radiology Diagnoses Acute constipation Procedures XR abdomen acute series flat/uprt with uprt pa chest and/or decubs Danya Marcus APRN [facility] Diagnostic Imaging [address] [place] [address] Phone: tel: fax: Referral ID Status Reason Start Date Expiration Date Visits Re quested Visits Authorized [id number] Closed 05/26/2024 05/26/2025 1 1 Reason for Visit * Reason Comments Constipation Patient is here toda for constipation, states she hasn't had a bowel movement is 16 days. Was admitted to [facility] for 5 days Encounter Details Date Type Department Care Team (Late st Contact Info) Description 05/26/2024 9:20 AM EDT Office Visit [facility] Gastroenterology [address] [place] [address] Danya Marcus APRN Acute constipation (Primary Dx) Social History Tobacco Use Types Packs/Day Years [...] Sign Reading Time Taken Comments Blood Pressure 115/74 05/26/2024 9:22 AM EDT Pulse 63 05/26/2024 9:22 AM EDT Temperature - - Respiratory Rate - - Oxygen Saturation 98% 05/26/2024 9:22 AM EDT Inhaled Oxygen Concentration - - Weight 111.5 kg (245 lb 12.8 oz) 05/26/2024 9:22 AM EDT Height 165.1 cm (5' 5 ) 05/26/2024 9:22 AM EDT Body Mass Index 40.9 05/26/2024 9:22 AM EDT documented in this encounter Progress Notes * Danya Marcus, TAG PRESS OPERATOR - 05/26/2024 9:20 AM EDT Gastroenterology Follow up Subjective: Chief Complaint Patient presents with ??? Constipation Patient is here today for constipation, states she hasn't had a bowel movement is 16 days. Was admitted to [facility] for 5 days Tessie Roa is a 43 y.o. female with hx of EOE, Chronic Diarrhea, Adrenal Insufficiency, Cervical and Lumbar Spine Disc Disease, and Anxiety Disorder who is here for hospital f/u with acute constipation. Admitted at [facility] due to weakness, confusion, suspected Wirt's crisis. Was treated for constipation with moderate-large stool burden on KUB. Treatment included lactulose, Gatorade bowel prep, enemas. Discharged yesterday. Patient says she only had very small BM. States no BM in 16 days otherwise. Complaints of feeling very bloated and wants it out . No N/V. Passing gas. Denies melena or rectalbleeding. She had colonoscopy in 2021 which showed internal hemorrhoids, otherwise normal. She has hx of chronic abd pain/diarrhea and has undergoing diarrhea work-up here. She had recent placement of intrathecal pain pump so this could be a source for new, acute constipation. Allergies: No Known Allergies Medications: Current [...] by mouth daily., Disp: , Rfl: ??? bisacodyL (DULCOLAX) 10 mg suppository, Place 1 suppository (10 mg total) rectally daily as needed for up to 10 days., Disp: 10 suppository, Rfl: 0 ??? busPIRone (BUSPAR) 7.5 MG tablet, Take [...] mouth daily., Disp: , Rfl: ??? pancrelipase, Aan-Nbqz-Jgty, (Creon) 36,000-114,000- 180,000 unit CpDR capsule, Take [...] History: Past Medical History: Diagnosis Date ??? Wirt's disease (HCC) ??? Anxiety ??? Chronic kidney [...] BALLOON DILATION; Surgeon: Christopher Mcghee MD; Location: [facility]; Service: Gastroenterology; Laterality: N/A; ??? UPPER ENDOSCOPY,DILATATION N/A 12/18/2023 Procedure: EGD, WITH BALLOON DILATION; Surgeon: Christopher Mcghee MD; Location: [facility] END[facility]; Service: Gastroenterology; Laterality: N/A; Family History Problem Relation Age of Onset ??? Heart disease Father ??? Colon cancer Maternal Grandmother Social History Tobacco Use ??? Smoking status: Never ??? Smokeless tobacco: Never Substance Use Topics ??? Alcohol use: Never Review of Systems: Review of Systems Constitutional: Negative for fever and weight loss. Respiratory: Negative for shortness of breath. Cardiovascular: Negative for chest pain. Gastrointestinal: Positive for constipation. Negative for abdominal pain, blood in stool, melena, nausea and vomiting. Neurological: Negative for dizziness and loss of consciousness. Objective: BP 115/74 Pulse 63 Ht 1.651 m (5' 5 ) Wt 111.5 kg (245 lb 12.8 oz) SpO2 98% BMI 40.90 kg/m?? Physical Exam Vitals reviewed. Constitutional: General: She is not in acute distress. Appearance: She is obese. HENT: Head: Normocephalic. Mouth/Throat: Mouth: Mucous membranes are moist. Cardiovascular: Rate and Rhythm: Normal rate and regular rhythm. Heart sounds: Normal heart sounds. Pulmonary: Effort: Pulmonary effort is normal. No respiratory distress. Breath sounds: Normal breath sounds. Abdominal: General: Bowel sounds are normal. There is distension (very mild, but soft). Tenderness: There is abdominal tenderness. There is rebound. There is no guarding. Musculoskeletal: Cervical back: Neck supple. Right lower leg: No edema. Left lower leg: No edema. Lymphadenopathy: Cervical: No cervical adenopathy. Skin: General: Skin is warm and dry. Coloration: Skin is not jaundiced or pale. Neurological: General: No focal deficit present. Mental Status: She is alert and oriented to person, place, and time. Mental status is at baseline. Assessment and Plan: 1. Acute constipation Problem List Items Addressed This Visit None Visit Diagnoses Acute constipation - Primary Relevant Medications bisacodyL (DULCOLAX) 10 mg suppository polyethylene glycol (GLYCOLAX) 17 gram/dose powder Other Relevant Orders XR abdomen acute series flat/uprt with uprt pa chest and/or decubs (Completed) Discussion: - Abdominal series x-ray - Mag citrate x 1 bottle. - Daily dulcolax supp until regular BM pattern established. - Continue Miralax 1-2 capfuls Once or twice daily - Clinic f/u 2 weeks Requested Prescriptions Signed Prescriptions Disp Refills ??? magnesium citrate solution 300 mL 0 Sig: Take 296 mLs by mouth once for 1 dose. ??? bisacodyL (DULCOLAX) 10 mg suppository 10 suppository 0 Sig: Place 1 suppository (10 mg total) rectally daily as needed for up to 10 days. ??? polyethylene glycol (GLYCOLAX) 17 gram/dose powder 510 g 0 Sig: Mix with 8 oz liquid.Take 1-2 capfuls (17 gm each) by mouth twice daily until having regular BM's, then once daily. Patient instructions given. . documented in this encounter Plan of Treatment Upcoming Encounters Date Type Department Care Team (Late st Contact Info) Description 12/28/2024 11:00 AM EST Office Visit [facility] Gastroenterology [address] [place] [phone] Christopher Mcghee MD [address] [facility] [address] [place] [address] documented as of this encounter Results * XR abdomen acute [...] device overlies the left hemiabdomen. Procedure Note Doc Antonio MD - 05/26/2024 ACUTE ABDOMINAL SERIES [...] Doc Antonio. Transcribed by Melani Mayes PA-C. Danya Marcus APRN IMG DIAGNOSTIC IMAGING ORDERAB LES Final Result documented in this encounter Visit Diagnoses Diagnosis Acute constipation- Primary Unspecified constipation Acute constipation Unspecified constipation documented in this encounter Care Teams Ski Edge Painter Relationship Specialty Start Date End Date Uyen Hines MD [address] [place] [phone] PCP - General Family Medicine 02/11/23 Gee Quan APRN [address] [place] [phone] Nurse Practitioner 02/24/23 documented as of this encounter
--- OUTSIDE RECORDS SUMMARY | 2024-10-19 10:50 | XMS_ITS | Encounter Summary ---
Author Organization [employer] Address [address] [address] Care Team Providers Care Rn Emergency Name Role Phone Uyen Hinse MD Primary Care Provider [phone] Gee Quan ORCHARD PRUNER Unavailable [phone] Reason for Visit * Auth/Cert (Routine) Specialty Diagnoses / Procedures Referred By Christopher t Referred To Contact Diagnoses Esophageal dysphagia Eosinophilic esophagitis Constipation, unspecified constipation type Weight loss, unintentional Generalized abdominal pain Same Procedures DE ESOPHAGOGASTRODUODENOSCOPY TRANSORAL DIAGNOSTIC DE EGD TRANSORAL BIOPSY SINGLE/MULTIPLE DE EGD BALLOON DILATION ESOPHAGUS <30 MM DIAM DE EGD REMOVAL TUMOR POLYP/OTHER LESION SNARE TECH EGD (ESOPHAGOGASTRODUODENOSCOPY) Galen Alvarenga MD [address] [place] [address] Phone: tel: fax: Referral ID Status Reason Start Date Expiration Date Visits Re quested Visits Authorized [id number] 12/16/2023 1 1 Encounter Details Date Type Department Care Team (Late st Contact Info) Description 12/18/2023 10:05 AM EST - 12/18/2023 10:36 AM EST Surgery [facility] Endoscopy [address] [place] [address] Galen Alvarenga MD [address] [place] [address] EGD, WITH BALLOON DILATION Social History Tobacco Use Types Packs/Day Years [...] Date Ralf rded Speak language other than Yemeni at home Not on file 12/11/2023 Want [...] Sign Reading Time Taken Comments Blood Pressure 118/72 12/18/2023 9:26 AM EST Pulse 92 12/18/2023 9:26 AM EST Temperature 36.3 ??C (97.3 ??F) 12/18/2023 9:26 AM ES T Respiratory Rate 20 12/18/2023 9:26 AM EST Oxygen Saturation 99% 12/18/2023 9:26 AM EST Inhaled Oxygen Concentration - - Weight 104.3 kg (230 lb) 12/18/2023 9:26 AM EST Height 162.6 cm (5' 4 ) 12/18/2023 9:26 AM EST Body Mass Index 39.48 12/18/2023 9:26 AM EST documented in this encounter Medications at Time [...] 300 mg/2 mL PnIj Inject subcutaneously. 11/18/2023 pantoprazole (PROTONIX) 40 MG tablet Take 1 tablet (40 mg total) by mouth 2 (two) times daily. 01/16/2023 4 documented as of this encounter H&P Notes * Galen Alvarenga MD - 12/18/2023 9:08 AM EST Gastroenterology Follow up Subjective: No chief complaint on file. Tommy Page is a 43 y.o. female her for f/u of EOE. She was previously treated with rfagovfi24 mg bid and flovent inhaler orally with persistent sx. She got insurance approval for Dupixent and has been taking it for approx 2 months along with protonix 40 mg bid. She is off the flovent. States that she honestly can not tell any improvement in sx of dysphagia. Has sensation of food getting stuck and fullness in mid chest. No vomiting. Had EGD with dilation in February last year. Dysphagia seemed to be better for 2-3 months after the procedure but gradually worsened She has lost an additional 11 lbs since her last office visit in August. She also thinks she may be having side effects to Dupixent. She has been experiencing vision changes, dry mouth, blurry vision and dizziness. She saw Study Assistant and states that no problems identified. She denies eye pain, or discharge. Her last dose was on 12/14. EGD 02/2023 with dilation to 15 mm. Mucosal changes consistent with EOE and small hiatal hernia werenoted. Eosinophil count had improved from previous EGD. Other work-up includes barium swallow 07/2023 which showed minimal esophageal dysmotility. She has also been undergoing evaluation for chronic diarrhea with elevated ESR and CRP. Negative IBD serology. Stool studies for enteric pathogens, WBC, and inflammatory proteins have been negative. She was not able to swallow pill cam and insurance has not approved MRI enterography- requesting repeat labs, u/a and abdominal u/s. These are ordered but have not been performed yet. More recently, she has been having problems with constipation. Can go for > 1 week without BM. Taking Ex lax or Dulcolax tabs daily and intermittently using miralax. Stools are very large, hard and difficult to pass. No abdominal pain, fever or vomiting. Feels full and bloated. No new meds except Dupixent. No dark tarry stools or bright blood in BM's. Passing lots of gas but 7 days since last BM. Allergies: No Known Allergies Medications: Current Facility-Administered Medications: ??? lactated ringers (LR) infusion, , Intravenous, Continuous, Josefina Ziegler PA-C ??? simethicone (MYLICON) oral drops 40 mg, 40 mg, Other - See Admin Instructions, PRN, Josefina Ziegler PA-C History: Past Medical History: Diagnosis Date ??? Anxiety ??? Chronic kidney disease ??? CKD (chronic kidney disease), stage III (HCC) ??? Crohn's disease (HCC) ??? Depression ??? Diskitis Buldging disk ??? Eosinophilic esophagitis ??? Hypertension ??? Hypothyroid ??? Migraines ??? Stroke (cerebrum) (HCC) Past Surgical History: Procedure Laterality Date ??? SECTION ??? CHOLECYSTECTOMY ??? COLONOSCOPY 2021 ??? HYSTERECTOMY ??? SHOULDER SURGERY Left x2 ??? TUBAL LIGATION ??? UPPER ENDOSCOPY,DILATATION N/A 02/24/2023 Procedure: EGD, WITH BALLOON DILATION; Surgeon: Galen Alvarenga MD; Location: [facility]; Service: Gastroenterology; Laterality: N/A; Family History Problem Relation Age of Onset ??? Heart disease Father ??? Colon cancer Maternal Grandmother Social History Tobacco Use ??? Smoking status: Never ??? Smokeless tobacco: Never Substance Use Topics ??? Alcohol use: Never Review of Systems: Review of Systems Constitutional: Positive for malaise/fatigue and weight loss. Negative for fever. HENT: Negative for hearing loss, sore throat and tinnitus. Eyes: Positive for blurred vision. Negative for pain and discharge. Respiratory: Negative for cough and shortness of breath. Cardiovascular: Negative for chest pain and palpitations. Gastrointestinal: Positive for constipation and heartburn. Negative for abdominal pain, blood in stool, melena and vomiting. Genitourinary: Negative for dysuria. Neurological: Positive for dizziness. Negative for focal weakness. Endo/Heme/Allergies: Negative for polydipsia. Objective: There were no vitals taken for this visit. Physical Exam Vitals reviewed. Constitutional: General: She is not in acute distress. Appearance: She is obese. HENT: Head: Normocephalic. Mouth/Throat: Mouth: Mucous membranes are moist. Eyes: Conjunctiva/sclera: Conjunctivae normal. Cardiovascular: Rate and Rhythm: Normal rate and regular rhythm. Pulses: Normal pulses. Pulmonary: Effort: Pulmonary effort is normal. No respiratory distress. Breath sounds: Normal breath sounds. Abdominal: General: Distension: mild. Palpations: Abdomen is soft. Tenderness: There is no abdominal tenderness. There is no guarding or rebound. Comments: Bowel sounds present Lymphadenopathy: Cervical: No cervical adenopathy. Skin: General: Skin is warm and dry. Capillary Refill: Capillary refill takes less than 2 seconds. Neurological: General: No focal deficit present. Mental Status: She is alert and oriented to person, place, and time. Psychiatric: Mood and Affect: Mood normal. Behavior: Behavior normal. Assessment: No diagnosis found. Plan: 1. EGD 12/18/23 @ 9:30 am 2. Add Carafate Elixir 1 gm po tid before meals 3. 2 view abd x-ray now. Will call patient with results 4. After x-ray reviewed: -Miralax 1 scoop (17 gm BID) until normal bowel pattern established. Then titrate dose with goal for 1 soft BM every 1-2 days. Also recommend enema or suppository with Miralax today. 5. CBC, CMP u/a, Lipase 6. Schedule for abdominal u/s per insurance request prior to consideration for MR enterography 7. Further recs regarding dupixent after endoscopy. ?? Orders Placed This Encounter Procedures ??? NPO diet ??? Verify informed consent ??? Full code ??? Insert peripheral IV Requested Prescriptions No prescriptions requested or ordered in this encounter No follow-ups on file. Patient instructions given. . T DEPUTY documented in this encounter Plan of Treatment Upcoming Encounters Date Type Department Care Team (Late st Contact Info) Description 12/28/2024 11:00 AM EST Office Visit [facility] Gastroenterology [address] [place] [address] Galen Alvarenga MD [address] [facility] [address] [place] [address] documented as of this encounter Procedures Procedure Name Priority Date/Time Associated Diagnosis Comments TISSUE EXAM [facility] AP Routine 12/18/2023 10:30 AM EST Esophageal dysphagia Eosinophilic esophagitis Constipation, unspecified constipation type Weight loss, unintentional Generalized abdominal pain EGD, WITH BALLOON DILATION 12/18/2023 10:15 AM EST Esophageal dysphagia Eosinophilic esophagitis Constipation, unspecified constipation type Weight loss, unintentional Generalized abdominal pain documented in this encounter Results * Tissue Exam (12/18/2023 10:30 AM EST) AP RESULT See Note: [facility] Comment: [facility] [address] ?[place], [place] ??[address] or [phone] Cy Garcia M.D., Intelligence Research Specialist PATIENT NAME ? LABORATORY NO. [id number] ?? TOMMY PAGE. ? [phone] [id number] ? AGE ? SEX ?? SSN ?CLIENT REF # [facility] ? 43 ?1980 ?F ?[id number] DEAN ? REQUESTING M.D. ? ATTENDING M.D. ? COPY TO. [address] ? [place] [address] ?DATE COLLECTED ?DATE RECEIVED ?DATE REPORTED 12/18/2023 ?12/18/2023 ? 12/19/2023 DIAGNOSIS: A. ? ANTRUM, BIOPSY: Gastric antral type mucosa with mild chronic inactive gastritis Negative for H. pylori organisms on routine stain Negative for intestinal metaplasia, dysplasia, or malignancy B. ? DUODENUM, BIOPSY: Small bowel mucosa negative for significant diagnostic abnormality Negative for malabsorption pattern or microorganisms C. ? ESOPHAGUS, BIOPSY, DISTAL: Squamous epithelium with reactive changes suggestive of reflux esophagitis Negative for intraepithelial eosinophils, intestinal metaplasia, dysplasia, or malignancy D. ? ESOPHAGUS, BIOPSY, MID: Squamous epithelium with reactive changes Up to five intraepithelial eosinophils per high-power field (5/hpf) Negative for intestinal metaplasia, dysplasia, or malignancy [facility] CLINICAL HISTORY: Other dysphagia, eosinophilic esophagitis, constipation, unspecified, abnormal weight loss, generalized abdominal pain SPECIMENS RECEIVED: A. ?ANTRUM, BIOPSY B. ?DUODENUM, BIOPSY C. ?ESOPHAGUS, BIOPSY , DISTAL D. ?ESOPHAGUS, BIOPSY , MID MICROSCOPIC DESCRIPTION: Tissue blocks are prepared and slides are examined microscopically on all specimens. See diagnosis for details. Professional interpretation rendered by Brianda Del Valle D.O. at [facility], [address] [place] [address]. GROSS DESCRIPTION: A. ?Labeled antrum biopsy . ??Consists of 2 pieces of nelson soft tissue measuring 0.5 x 0.3 x 0.2 cm in aggregate and is submitted entirely in 1 block. ??FATOU B. ?Labeled duodenum . ??Consists of 1 piece of nelson soft tissue measuring 0.4 x 0.3 x 0.2 cm and is submitted entirely in 1 block. C. ?Labeled distal esophagus . ??Consists of 2 pieces of nelson soft tissue measuring 0.4 x 0.3 x 0.2 cm in aggregate and submitted entirely in 1 block. D. ?Labeled biopsy, mid esophagus . ??Consists of 2 pieces of nelson soft tissue measuring 0.5 x 0.3 x 0.2 cm in aggregate and submitted entirely in 1 block. REVIEWED, DIAGNOSED AND ELECTRONICALLY SIGNED BY: Brianda Del Valle D.O. CPT CODES: ??[id number] Tissue PYLORIC ANTRUM STRUCTURE / Unknown 12/18/2023 10:30 AM EST Tissue specimen (specimen) DUODENAL STRUCTURE / Unknown 12/18/2023 10:31 AM EST Tissue specimen (specimen) ESOPHAGEAL STRUCTURE / Unknown 12/18/2023 10:33 AM EST Tissue specimen (specimen) BIOPSY OF ESOPHAGUS / Unknown 12/18/2023 10:33 AM EST Galen Alvarenga MD PATHOLOGY/CYTOLOGY ORDERABLES Final Result Performing Organization Address City/State/[facility] Co de Phone Number [facility] [address] [place] [address] documented in this encounter Visit Diagnoses Diagnosis Esophageal dysphagia Dysphagia, pharyngoesophageal phase Eosinophilic esophagitis Constipation, unspecified constipation type Weight loss, unintentional Loss of weight Generalized abdominal pain Abdominal pain, generalized CHF (congestive heart failure) (HCC) Congestive heart failure, unspecified Gastroesophageal reflux disease Esophageal reflux Dysphagia Dysphagia, unspecified Chronic renal insufficiency Chronic kidney disease, unspecified SANJU (obstructive sleep apnea) Obstructive sleep apnea (adult) (pediatric) Esophageal dysphagia Dysphagia, pharyngoesophageal phase Eosinophilic esophagitis Constipation, unspecified constipation type Weight loss, unintentional Loss of weight Generalized abdominal pain Abdominal pain, generalized documented in this encounter Admitting Diagnoses Diagnosis Eosinophilic esophagitis documented in this encounter Administered Medications Inactive Administered Medications - up to 3 most recent administrations Medication Order MAR Action Action Date Dose Rate Site lactated ringers (LR) infusion Continuous, intravenous, at 30 mL/hr, Starting on Fri12/17/23 at 2130 Continued by Anesthesia 12/18/2023 10:15 AM EST 30 mL/hr New Bag 12/18/2023 9:34 AM EST 30 mL/hr simethicone (MYLICON) oral drops 40 mg 40 mg As needed, other - see admin instructions, flatulence, Starting on Fri12/17/23 at 2045, Dilue in water prior to injection through water port of scope documented in this encounter Active and Recently Administered Medications Times are shown in EST. Continuous Medication Order 12/16/2023 12/17/2023 12/18/2023 lactated ringers (LR) infusion Continuous, intravenous, at 30 mL/hr, Starting on Fri12/17/23 at 2130 [id number] (New Bag - Prov ider: Josee Barbosa RN)[id number] (Continued by Anesthesia - Provider: Juan Adam CRNA) PRN Medication Order 12/16/2023 12/17/2023 12/18/2023 simethicone (MYLICON) oral drops 40 mg 40 mg As needed, other - see admin instructions, flatulence, Starting on Fri12/17/23 at 2045, Dilue in water prior to injection through water port of scope documented in this encounter Care Teams Rn Emergency Relationship Specialty Start Date End Date Uyen Hines MD [address] [place] [phone] PCP - General Family Medicine 02/11/23 Gee Quan, [address]EL[address] [place] [address] Nurse Practitioner 02/24/23 documented as of this encounter
--- OUTSIDE RECORDS SUMMARY | 2024-10-19 10:50 | XMS_ITS | Encounter Summary ---
Author Organization [employer] Address [address] [place] [address] Care Team Providers Care Legal Administrator Name Role Phone Uyen Hines MD Primary Care Provider [phone] Gee Quan THERMODYNAMIC PHYSICIST Unavailable [phone] Encounter Details Date Type Department Care Team (Latest Contact Info) Description 12/18/2023 Travel Social History Tobacco Use Types Packs/Day [...] Date Ralf rded Speak language other than Peruvian at home Not on file 12/11/2023 Want [...] Description 12/28/2024 11:00 AM EST Office Visit [facility] Gastroenterology [address] [place] [address] Christopher Mcghee MD [address] [facility] [address] [place] [address] documented as of this encounter Visit Diagnoses Not on filedocumented in this encounter Care Teams Legal Administrator Relationship Specialty Start Date End Date Uyen Hines MD [address] [place] [phone] PCP - General Family Medicine 02/11/23 Gee Quan, CAMELIA [address] [place] [address] Nurse Practitioner 02/24/23 documented as of this encounter
--- OUTSIDE RECORDS SUMMARY | 2024-10-19 10:50 | XMS_ITS | Encounter Summary ---
Author Organization [employer] Address [address] [place] [address] Care Team Providers Care Straightener Name Role Phone Uyen Hines MD Primary Care Provider [phone] Gee Quan APRN Unavailable Reason for Referral * MRI (Routine) - Canceled Specialty Diagnoses / Procedures Referred By Christopher yuan Referred To Contact Radiology Diagnoses Diarrhea, unspecified type Abnormal stools Procedures MR enterography - MR abd/pelvis without & with IV contrast Danya Marcus APRN [facility] MRI [address] [place] [address] Phone: tel: fax: Referral ID Status Reason Start Date Expiration Date V isits Requested Visits Authorized [id number] Canceled 04/29/2024 06/28/2024 1 2 Encounter Details Date Type Department Care Team (Late st Contact Info) Description 04/24/2024 Orders Only [facility] Gastroenterology [address] [place] [address] Danya Marcus APRN Diarrhea, unspecified type (Primary Dx); Abnormal stools Social History Tobacco Use Types Packs/Day Years [...] Description 12/28/2024 11:00 AM EST Office Visit [facility] Gastroenterology [address] [place] [address] Christopher Mcghee MD [address] [place] [address] Scheduled Orders Name Type Priority Associated Diagnoses Orde r Schedule MR enterography - MR abd/pelvis without & with IV contrast Imaging Routine Diarrhea, unspecified type Abnormal stools Expected: 04/24/2024, Expires: 05/24/2025 documented as of this encounter Visit Diagnoses Diagnosis Diarrhea, unspecified type- Primary Abnormal stools Abnormal feces documented in this encounter Care Teams Straightener Relationship Specialty Start Date End Date Uyen Hines MD [address] [place] [address] PCP - General Family Medicine 02/11/23 Gee Quan, CAMELIA [address] [place] [address] Nurse Practitioner 02/24/23 documented as of this encounter
--- OUTSIDE RECORDS SUMMARY | 2024-10-19 10:50 | XMS_ITS | Encounter Summary ---
Author Organization [employer] Address [address] [place] [address] Care Team Providers Care Classroom Coordinator Name Role Phone Uyen Hines MD Primary Care Provider [phone] Gee Quan LARGE ANIMAL VETERINARIAN Unavailable [phone] Reason for Visit * Reason Onset Date Comments OTHER 03/02/2024 Encounter Details Date Type Department Care Team (Late st Contact Info) Description 03/02/2024 Telephone [facility] Gastroenterology [address] [place] [address] Vero Vergara, JERED OTHER Social History Tobacco Use Types Packs/Day [...] Date Ralf rded Speak language other than Panamanian at home Not on file 12/11/2023 Want [...] encounter Miscellaneous Notes * Telephone Encounter - Vero Vergara CMA - 03/02/2024 9:43 AM EDT Patient called back and did let me know she did reschedule to US already and will see us on April 05 ----- Message from Danya Marcus APRN sent at 03/01/2024 12:54 PM EDT ----- Regarding: FW: LEMUELTESSIE Guan JAMES cancelled appointment Patient cancelled RUQ u/s and has not collected stools. She has f/u appt in March. Does she need us to reschedule the u/s? ----- Message ----- From: Jovany Cam Sent: 02/14/2024 2:54 PM EDT To: Danya Marcus APRN Subject: TESSIE PAGE JAMES cancelled appointment Do Not Reply to this message. We are deferring the order for US abdomen complete for the next 30 days as the patient was previously scheduled but decided to cancel the appointment. Within this period, you will have the time to assess if the order is still needed or should be cancelled. Patient Details: NAME: TESSIE PAGE PROCEDURE: US abdomen complete Thank you for choosing [facility]! documented in this encounter Plan of Treatment Upcoming Encounters Date Type Department Care Team (Late st Contact Info) Description 12/28/2024 11:00 AM EST Office Visit [facility] Gastroenterology [address] [place] [address] Christopher Mcghee MD [address] [facility] [address] [place] [address] documented as of this encounter Visit Diagnoses Not on filedocumented in this encounter Care Teams Classroom Coordinator Relationship Specialty Start Date End Date Uyen Hines MD [address] [place] [phone] PCP - General Family Medicine 02/11/23 Gee Quan, LARGE ANIMAL VETERINARIAN [address] [place] [id number] Nurse Practitioner 02/24/23 documented as of this encounter
--- OUTSIDE RECORDS SUMMARY | 2024-10-19 10:50 | XMS_ITS | Encounter Summary ---
Author Organization [employer] Address [address] [place] [address] Care Team Providers Care Brim Molder Name Role Phone Uyen Hines MD Primary Care Provider [phone] Gee Quan BUSINESS CHANGE MANAGER Unavailable [phone] Encounter Details Date Type Department Care Team (Latest Contact Info) Description 04/09/2024 3:30 PM EDT Lab Patient [facility] Lab [address] [place] [phone] Danya Marcus APRN Diarrhea, unspecified type; Common bile duct dilation [...] Date Ralf rded Speak language other than Vincentian at home Not on file 12/11/2023 Want [...] Encounter Note - Danya Marcus APRN - 04/09/2024 3:30 PM EDT Blood tests of liver function are normal. No evidence of bile duct blockage based on blood tests. Your creatinine (kidney function blood test) has increased. Please follow-up with PCP to monitor yourkidney function and check for potential cause. (Certain medications, dehydration, other medical conditions can cause ) CBC ok, not anemic. * Result Encounter Note - Yandy Bartholomew LPN - 04/09/2024 3:30 PM EDT Pt voiced understanding documented in this encounter Plan of Treatment Upcoming Encounters Date Type Department Care Team (Late st Contact Info) Description 12/28/2024 11:00 AM EST Office Visit [facility] Gastroenterology [address] [place] [address] Christopher Mcghee MD [address] [place] [address] documented as of this encounter Procedures Procedure Name Priority Date/Time Associated Diagnosis Comments CBC W/ AUTO DIFF Routine 04/09/2024 2:25 PM EDT Diarrhea, unspecified type Common bile duct dilation LIPASE Routine 04/09/2024 2:25 PM EDT Diarrhea, unspecified type Common bile duct dilation AMYLASE Routine 04/09/2024 2:25 PM EDT Diarrhea, unspecified type Common bile duct dilation COMPREHENSIVE METABOLIC PANEL Routine 04/09/2024 2:25 PM EDT Diarrhea, unspecified type Common bile duct dilation documented in this encounter Results * Lipase (04/09/2024 2:25 PM EDT) Lipase 37 16 - 77 U/L 04/09/2024 3:07 PM EDT [facility] Blood Venipuncture / Unknown 04/09/2024 2:25 PM EDT 04/09/2024 2:36 PM EDT us Danya Marcus BUSINESS CHANGE MANAGER LAB BLOOD ORDERABLES Final Res ult [facility] [address] [place] [address] * (ABNORMAL) Comprehensive metabolic panel (04/09/2024 2:25 PM EDT) Sodium 136 136 - 145 meq/L 04/09/2024 3:07 PM EDT [facility] Potassium 4.2 3.5 - 5.1 meq/L 04/09/2024 3:07 PM EDT [facility] Chloride 103 98 - 107 meq/L 04/09/2024 3:07 PM EDT [facility] CO2 28 21 - 32 meq/L 04/09/2024 3:07 PM EDT [facility] Calcium 8.8 8.5 - 10.1 mg/dL 04/09/2024 3:07 PM EDT [facility] Glucose 85 70 - 99 mg/dL 04/09/2024 3:07 PM EDT [facility] BUN 8 7 - 18 mg/dL 04/09/2024 3:07 PM EDT [facility] Creatinine 1.32(H) 0.55 - 1.10 mg/dL 04/09/2024 3:07 PM EDT [facility] BUN/Creatinine 6 04/09/2024 3:07 PM EDT [facility] Albumin 3.3(L) 3.4 - 5.0 g/dL 04/09/2024 3:07 PM EDT [facility] Alkaline Phosphatase 70 46 - 116 U/L 04/09/2024 3:07 PM EDT [facility] ALT 23 12 - 78 U/L 04/09/2024 3:07 PM EDT [facility] AST 20 15 - 37 U/L 04/09/2024 3:07 PM [facility] Total Bilirubin 0.5 0.2 - 1.0 mg/dL 04/09/2024 3:07 PM [facility] Protein, Total 7.2 6.4 - 8.2 gm/dL 04/09/2024 3:07 PM [facility] Anion Gap 9(L) 11 - 22 04/09/2024 3:07 PM [facility] A/G Ratio 0.8 04/09/2024 3:07 PM [facility] Globulin 3.9 g/dL 04/09/2024 3:07 PM [facility] Osmolality Calc 269.5 3:07 PM [facility] eGFR (mL/min/1.73m2) 52(L) >=60 mL/min/1.7 3m2 04/09/2024 3:07 PM [facility] Comment:ESTIMATED GFR IS NOT ACCURATE CREATININE CLEARANCE IN PREDICTING GLOMERULAR FILTRATION RATE. ESTIMATED GFR IS NOT APPLICABLE FOR DIALYSIS PATIENTS. Blood Venipuncture / Unknown 04/09/2024 2:25 PM EDT 04/09/2024 2:36 PM EDT us Danya Marcus BUSINESS CHANGE MANAGER LAB BLOOD ORDERABLES Final Res ult [facility] [address] [place] [address], [facility] [phone] * (ABNORMAL) CBC with automated diff (04/09/2024 2:25 PM EDT) WBC 6.3 4.8 - 10.8 K/??L 04/09/2024 2:56 PM EDT [facility] RBC 4.76 3.50 - 5.20 M/??L 04/09/2024 2:56 PM EDT [facility] Hemoglobin 13.5 11.7 - 15.8 GM/DL 04/09/2024 2:56 PM EDT [facility] Hematocrit 40.9 35.0 - 47.0 % 04/09/2024 2:56 PM EDT [facility] MCV 86 81 - 101 fL 04/09/2024 2:56 PM EDT [facility] MCH 28.4 27.0 - 34.0 pg 04/09/2024 2:56 PM EDT [facility] MCHC 33.0 32.0 - 36.0 GM/DL 04/09/2024 2:56 PM EDT [facility] RDW 14.6(H) 11.5 - 14.5 % 04/09/2024 2:56 PM EDT [facility] Platelets 385 150 - 400 K/CU MM 04/09/2024 2:56 PM EDT [facility] MPV 8.9(L) 9.4 - 12.4 fL 04/09/2024 2:56 PM EDT [facility] Nucleated Red Blood Cell 0.0 0 - 0.2 % 04/09/2024 2:56 PM EDT [facility] % Neutros 48 37 - 80 % 04/09/2024 2:56 PM EDT [facility] % Lymphs 36 10 - 50 % 04/09/2024 2:56 PM EDT [facility] % Monos 11 5 - 13 % 04/09/2024 2:56 PM EDT [facility] % Eos 3 0 - 7 % 04/09/2024 2:56 PM EDT [facility] % Baso 1 0 - 3 % 04/09/2024 2:56 PM EDT [facility] NRBC Absolute <0.01 0 - 0.012 K/ul 04/09/2024 2:56 PM EDT [facility] # Neutros 3.03 2.00 - 6.90 K/??L 04/09/2024 2:56 PM EDT [facility] # Lymphs 2.28 0.60 - 3.40 K/??L 04/09/2024 2:56 PM EDT [facility] # Monos 0.71 0.00 - 0.90 K/??L 04/09/2024 2:56 PM EDT [facility] # Eos 0.21 0.00 - 0.70 K/??L 04/09/2024 2:56 PM EDT [facility] # Baso 0.09 0.00 - 0.20 K/??L 04/09/2024 2:56 PM EDT [facility] Immature Granulocytes-Re lative 0.30 % 04/09/2024 2:56 PM EDT [facility] # IG 0.02(H) 0.00 - 0.00 K/uL 04/09/2024 2:56 PM EDT [facility] Blood Venipuncture / Unknown 04/09/2024 2:25 PM EDT 04/09/2024 2:36 PM EDT Narrative [facility] - 04/09/2024 2:56 PM EDT [...] Atypical Lymph flag noted us Danya Marcus BUSINESS CHANGE MANAGER LAB BLOOD ORDERABLES Final Res ult [facility] [address] [place] [address], [facility] [phone] * Amylase (04/09/2024 2:25 PM EDT) Amylase 53 25 - 115 U/L 04/09/2024 3:07 PM EDT [facility] Blood Venipuncture / Unknown 04/09/2024 2:25 PM EDT 04/09/2024 2:36 PM EDT us Danya Marcus BUSINESS CHANGE MANAGER LAB BLOOD ORDERABLES Final Res ult [facility] [address] [place] [address] documented in this encounter Visit Diagnoses Diagnosis Diarrhea, unspecified type Common bile duct dilation documented in this encounter Care Teams Brim Molder Relationship Specialty Start Date End Date Uyen Hines MD [address] [place] [phone] PCP - General Family Medicine 02/11/23 Gee Quan APRN [address] [place] [address] Nurse Practitioner 02/24/23 documented as of this encounter
--- OUTSIDE RECORDS SUMMARY | 2024-10-19 10:50 | XMS_ITS | Encounter Summary ---
Author Organization [employer] Address [address] [facility] [place] [address] Care Team Providers Care Event Sales Representative Name Role Phone Uyen Hines MD Primary Care Provider [phone] Gee Quan WIND FARM DESIGNER Unavailable [phone] Encounter Details Date Type Department Care Team (Late st Contact Info) Description 06/14/2024 Orders Only [facility] Gastroenterology [address] [place] [address] ProviderEbony MD [address] [place] [address] Social History Tobacco Use Types Packs/Day Years [...] Date Ralf rded Speak language other than Welsh at home Not on file 12/11/2023 Want [...] Description 12/28/2024 11:00 AM EST Office Visit [facility] Gastroenterology [address] [place] [address] Christopher Mcghee MD [address] [place] [address] documented as of this encounter Procedures Procedure Name Priority Date/Time Associated Diagnosis Comments EXTERNAL LAB - MISC Routine 05/25/2024 EXTERNAL IMAGING - XR Routine 05/23/2024 EXTERNAL IMAGING - XR Routine 05/23/2024 EXTERNAL IMAGING - US Routine 05/21/2024 EXTERNAL LAB - MISC Routine 05/20/2024 EXTERNAL IMAGING - XR Routine 05/20/2024 EXTERNAL IMAGING - CT Routine 05/20/2024 [id number] 12-LEAD Routine 05/20/2024 documented in this encounter Results * EXTERNAL LAB - MISC (05/25/2024) Historical Provider LAB BLOOD ORDERABLES Eva l Result * EXTERNAL IMAGING - XR (05/23/2024) Anatomical Region Laterality Modality Other Historical Provider HEALTH MAINTENANCE Final Result * EXTERNAL IMAGING - XR (05/23/2024) Anatomical Region Laterality Modality Other Historical Provider HEALTH MAINTENANCE Final Result * EXTERNAL IMAGING - US (05/21/2024) Anatomical Region Laterality Modality Other Historical Provider HEALTH MAINTENANCE Final Result * EXTERNAL LAB - MISC (05/20/2024) Historical Provider LAB BLOOD ORDERABLES Eva l Result * EXTERNAL IMAGING - XR (05/20/2024) Anatomical Region Laterality Modality Other Result [facility] Provider HEALTH MAINTENANCE Final Result * EXTERNAL IMAGING - CT (05/20/2024) Anatomical Region Laterality Modality Other [facility] Provider HEALTH MAINTENANCE Final Result * ECG 12 lead (05/20/2024) Result [facility] Provider ECG ORDERABLES Final Res ult documented in this encounter Visit Diagnoses Not on filedocumented in this encounter Care Teams Event Sales Representative Relationship Specialty Start Date End Date Uyen Hines MD [address] [place] [phone] PCP - General Family Medicine 02/11/23 Gee Quan APRN [address] [place] [address] Nurse Practitioner 02/24/23 documented as of this encounter
--- OUTSIDE RECORDS SUMMARY | 2024-10-19 10:50 | XMS_ITS | Encounter Summary ---
Author Organization [employer] Address [address] [place] [address] Care Team Providers Care Computer Science Intern Name Role Phone Uyen Hines MD Primary Care Provider [phone] Gee Quan TECHNICAL SALES REPRESENTATIVE Unavailable [phone] Encounter Details Date Type Department Care Team (Latest Contact Info) Description 04/09/2024 Travel Social History Tobacco Use Types Packs/Day [...] Date Ralf rded Speak language other than Cambodian at home Not on file 12/11/2023 Want [...] Description 12/28/2024 11:00 AM EST Office Visit [facility] Gastroenterology [address] [place] [address] Christopher Mcghee MD [address] [facility] [address] [place] [address] documented as of this encounter Visit Diagnoses Not on filedocumented in this encounter Care Teams Computer Science Intern Relationship Specialty Start Date End Date Uyen Hines MD [address] [place] [phone] PCP - General Family Medicine 02/11/23 Gee Quan, CAMELIA [address] [place] [address] Nurse Practitioner 02/24/23 documented as of this encounter
--- OUTSIDE RECORDS SUMMARY | 2024-10-19 10:50 | XMS_ITS | Encounter Summary ---
Author Organization [employer] Address [address] [place] [address] Care Team Providers Care Headmaster/Mistress Name Role Phone Uyen Hines MD Primary Care Provider [phone] Gee Quan DATA REVIEWER Unavailable [phone] Reason for Visit * Reason Onset Date Comments OTHER 03/02/2024 Encounter Details Date Type Department Care Team (Late st Contact Info) Description 03/02/2024 Telephone [facility] Gastroenterology [address] [place] [phone] Vero Vergara, JERED OTHER Social History [...] Date Ralf rded Speak language other than Russian at home Not on file 12/11/2023 Want [...] Encounter - Vero Vergara CMA - 03/02/2024 9:41 AM EDT I called to check about US. No answer left voicemail ----- Message from Danya Marcus APRN sent at 03/01/2024 12:54 PM EDT ----- Regarding: FW: TESSIE PAGE cancelled appointment Patient cancelled RUQ u/s and has not collected stools. She has f/u appt in March. Does she need us to reschedule the u/s? ----- Message ----- From: Jovany Cam Sent: 02/14/2024 2:54 PM EDT To: Danya Marcus APRN Subject: TESSIE PAGE cancelled appointment Do Not Reply to this [...] US abdomen complete Thank you for choosing [facility]! documented in this encounter Plan of Treatment Upcoming Encounters Date Type Department Care Team (Late st Contact Info) Description 12/28/2024 11:00 AM EST Office Visit [facility] Gastroenterology [address] [place] [address] Christopher Mcghee MD [address] [facility] [address] [place] [address] documented as of this encounter Visit Diagnoses Not on filedocumented in this encounter Care Teams Headmaster/Mistress Relationship Specialty Start Date End Date Uyen Hines MD [address] [place] [phone] PCP - General Family Medicine 02/11/23 Gee Quan, CAMELIA [address] [place] [address] Nurse Practitioner 02/24/23 documented as of this encounter
--- OUTSIDE RECORDS SUMMARY | 2024-10-19 10:50 | XMS_ITS | Encounter Summary ---
Author Organization [employer] Address [address] [place] [address] Care Team Providers Care Slip Maker Name Role Phone Uyen Hines MD Primary Care Provider [phone] Gee Quan DECKHAND CLAM DREDGE Unavailable [phone] Reason for Visit * Auth/Cert (Routine) Specialty Diagnoses / Procedures Referred By Christopher t Referred To Contact Diagnoses Esophageal dysphagia Eosinophilic esophagitis Constipation, unspecified constipation type Weight loss, unintentional Generalized abdominal pain Same Procedures DC ESOPHAGOGASTRODUODENOSCOPY TRANSORAL DIAGNOSTIC DC EGD TRANSORAL BIOPSY SINGLE/MULTIPLE DC EGD BALLOON DILATION ESOPHAGUS <30 MM DIAM DC EGD REMOVAL TUMOR POLYP/OTHER LESION SNARE TECH EGD (ESOPHAGOGASTRODUODENOSCOPY) Christopher Mcghee MD [address] [place] [address] Phone: tel: fax: Referral ID Status Reason Start Date Expiration Date Visits Re quested Visits Authorized [id number] 12/16/2023 1 1 Encounter Details Date Type Department Care Team (Late st Contact Info) Description 12/18/2023 10:15 AM EST Anesthesia Event [facility] Endoscopy [address] [place] [address] Juna Adam CRNA [address] [place] [address] Anesthesia Record Procedure Summary Procedure Name Responsible Anesthesiologist Anesthesia Start Time Anesthesia Stop Time EGD, WITH BALLOON DILATION Juan Adam CRNA 12/18/23 1015 12/18/23 1042 Events Date Time Event Comment 12/18/2023 0956 1015 An Start Patient identif ied and chart reviewed. 1015 An Start Data Anesthesia mac leigh and monitors checked. 1019 Pre-Induction Eval FDA anest hesia machine pre-use checkout completed. Patient status reassessed prior to start of anesthesia care. 1019 Anesthesia Ready 1037 an stop data 1042 An Stop Meds Name Total fentaNYL (SUBLIMAZE) injection 100 mcg propofol (DIPRIVAN) injection 10 mg/mL 5 00.64 mg propofol (DIPRIVAN) injection 10 mg/mL b olus 70 mg lidocaine (XYLOCAINE) injection 2% 100 m g lactated ringers (LR) infusion 0 mL * Agents Name O2 * Blood No blood administrations on file. Lines, Drains, and Airways Type Details Placement Removal Peripheral IV Placement Date: 11/25 04/16; Placement Time: 09; Size: 22 G; Orientation: Left, Posterior; Location: Hand; Site Prep: Alcohol; Inserted by: Brooke Barbosa RN; Insertion attempts: 2; Securement Method: Taped; Removal Date: 12/18/23; Removal Time: 111; Removal Reason: Per order 12/18/23 0934 by Josee Barbosa RN 12/18/23 1110 by Mary Delgado RN documented in this encounter Social History [...] Date Ralf rded Speak language other than Guinean at home Not on file 12/11/2023 Want [...] Postprocedure Evaluation - Juan Adam CRNA - 12/18/2023 10:42 AM EST Patient: Tessie Roa Procedure Summary Date: 12/18/23 Room / Location: [facility] 02 / [facility] Anesthesia Start: 1015 Anesthesia Stop: Procedure: EGD, WITH BALLOON DILATION Diagnosis: Esophageal dysphagia Eosinophilic esophagitis Constipation, unspecified constipation type Weight loss, unintentional Generalized abdominal pain (Same) Surgeons: Christopher Mcghee MD Responsible Provider: Juan Adam CRNA Anesthesia Type: general ASA Status: 3 Anesthesia Type: general Vitals Value Taken Time BP 90/49 12/18/23 1042 Temp 97 12/18/23 1042 Pulse 73 12/18/23 1042 Resp 20 12/18/23 1042 SpO2 100 % 12/18/23 1042 Vitals shown include unvalidated device data. Ht 1.626 m (5' 4 ) Wt 104.3 kg (230 lb) BMI 39.48 kg/m?? Anesthesia Post Evaluation Patient location during evaluation: PACU Patient participation: complete - patient participated Level of consciousness: awake Pain score: 0 Pain management: adequate Multimodal analgesia pain management approach Airway patency: patent Cardiovascular status: stable Respiratory status: nasal cannula Hydration status: stable Color: Verdel Activity: Moves 4 extremities Inotropes/Vasopressors: N/A No notable events documented. Juan Adam CRNA 12/18/2023 10:42 AM EST [employer] OPERATIONS REP * Anesthesia Preprocedure Evaluation - Louie Wilkerson MD - 12/18/2023 9:52 AM EST Anesthesia Pre Evaluation Ms. Tessie Roa is a 43 y.o. female being evaluated for the following: Date/Time: 12/18/23 1005 Procedure: EGD (ESOPHAGOGASTRODUODENOSCOPY) Location: [facility] 02 / [facility] Surgeons: Christopher Mcghee MD BP 118/72 Pulse 92 Temp 97.3 ??F (36.3 ??C) Resp 20 Ht 1.626 m (5' 4 ) Wt 104.3 kg (230 lb) SpO2 99% BMI 39.48 kg/m?? No current facility-administered medications on file prior to encounter. Current Outpatient Medications on File Prior to Encounter Medication Sig Dispense Refill ??? ALPRAZolam (XANAX) 1 MG tablet Take 1 tablet (1 mg total) by mouth 3 (three) times daily as needed. ??? busPIRone (BUSPAR) 7.5 MG tablet Take by mouth. ??? carvediloL (COREG) 6.25 MG tablet Take 1 tablet (6.25 mg total) by mouth 2 (two) times daily with breakfast and dinner. ??? escitalopram oxalate (LEXAPRO) 20 MG tablet Take 1 tablet (20 mg total) by mouth. ??? levothyroxine (SYNTHROID, LEVOTHROID) 200 MCG tablet Take 1 tablet (200 mcg total) by mouth. ??? lisinopriL (PRINIVIL,ZESTRIL) 10 MG tablet Take 1 tablet (10 mg total) by mouth daily. ??? pantoprazole (PROTONIX) 40 MG tablet Take 1 tablet (40 mg total) by mouth 2 (two) times daily. ??? sucralfate (CARAFATE) 100 mg/mL suspension Take 10 mLs (1 g total) by mouth 3 (three) times daily before meals. 900 mL 1 ??? TiZANidine (ZANAFLEX) 4 MG capsule Take 1 capsule (4 mg total) by mouth 3 (three) times daily. ??? ubrogepant 100 mg Tab Take by mouth. ??? acetaminophen (TYLENOL ARTHRITIS ORAL) Take by mouth. ??? acetaminophen (TYLENOL) 500 MG tablet Take 1 tablet (500 mg total) by mouth every 6 (six) hoursas needed for Pain. ??? aspirin 81 MG EC tablet Take 1 tablet (81 mg total) by mouth daily. ??? Dupixent Pen 300 mg/2 mL PnIj Inject subcutaneously. Relevant Problems ANESTHESIA (+) SANJU (obstructive sleep apnea) (on CPAP) (-) History of anesthesia complications CARDIOVASCULAR (+) CHF (congestive heart failure) ([facility]) (8y ago--stable--followed by Abdirizak) (+) Hypertension ENDOCRINE (+) Hypothyroid (-) Diabetes mellitus, type 2 (HCC) GASTROINTESTINAL (+) Gastroesophageal reflux disease /RENAL (+) CKD (chronic kidney disease), stage III ([facility]) (+) Chronic renal insufficiency NEURO/PSYCH (+) Anxiety (+) Depression (+) Migraines (+) Stroke (cerebrum) ([facility]) (01/2023-- received thrombolytiuc in [place]) RESPIRATORY SYSTEM (within normal limits) Digestive (+) Eosinophilic esophagitis Other (+) Crohn's disease ([facility]) (-) Coagulopathy ([facility]) (Baby ASA only-- none in 7d) Clinical information reviewed: Tobacco Allergies Meds Med Hx Surg Hx Fam Hx NPO Status Date of last liquid: 12/17/23 Time of last liquid: 1900 Date of last solid: 12/15/23 Time of last solid: 1800 Physical Exam Airway Mallampati: III TM distance: <3 FB Neck ROM: full Comments: Full neck Cardiovascular - normal exam Dental (+) edentulous Pulmonary - normal exam Abdominal Anesthesia Plan ASA 3 Planned anesthetic: general Anesthesia Plan Factors- The patient is not a current smoker. Education provided regarding risk of obstructive sleep apnea. Induction: intravenous Informed Consent- Anesthetic plan and risks discussed with patient and mother. Plan discussed with CRUSHER AND BINDER OPERATOR. [employer]PER[employer] REP documented in this encounter Plan of Treatment Upcoming Encounters Date Type Department Care Team (Late st Contact Info) Description 12/28/2024 11:00 AM EST Office Visit [facility] Gastroenterology [address] [place] [address] Christopher Mcghee MD [address] [facility] [address] [place] [address] documented as of this encounter Visit Diagnoses Not on filedocumented in this encounter Administered Medications Inactive Administered Medications - up to 3 most recent administrations Medication Order MAR Action Action Date Dose Rate Site fentaNYL (SUBLIMAZE) injection As needed, intravenous, Starting on Linda 12/18/23 at 1018, Anesthesia Intra-op Given 12/18/2023 10:18 AM EST 100 mcg lactated ringers (LR) infusion Continuous, intravenous, at 30 mL/hr, Starting on Fri12/17/23 at 2130 Continued by Anesthesia 12/18/2023 10:15 AM EST 30 mL/hr New Bag 12/18/2023 9:34 AM EST 30 mL/hr lidocaine (XYLOCAINE) injection 2% As needed, intravenous, Starting on Linda 12/18/23 at 1019, Anesthesia Intra-op Given 12/18/2023 10:19 AM EST 100 mg propofol (DIPRIVAN) injection 10 mg/mL bolus As needed, intravenous, Starting on Linda 12/18/23 at 1018, Anesthesia Intra-op Given 12/18/2023 10:18 AM EST 70 mg propofol (DIPRIVAN) injection 10 mg/mL Continuous PRN, intravenous, Starting on Linda 12/18/23 at 1018, Anesthesia Intra-op New Bag 12/18/2023 10:18 AM EST 200 mcg/kg/min 125.16 mL/hr documented in this encounter Care Teams Slip Maker Relationship Specialty Start Date End Date Uyen Hines MD [address] [place] [phone] PCP - General Family Medicine 02/11/23 Gee Quan APRN [address] [place] [address] Nurse Practitioner 02/24/23 documented as of this encounter
--- OUTSIDE RECORDS SUMMARY | 2024-10-19 10:50 | XMS_ITS | Encounter Summary ---
Author Organization [employer] Address [address] [place] [address] Care Team Providers Care Net Web Developer Name Role Phone Uyen Hines MD Primary Care Provider [phone] Gee Quan CHAMFERING MACHINE OPERATOR Unavailable [phone] Encounter Details Date Type Department Care Team (Late st Contact Info) Description 05/05/2024 Orders Only [facility] Gastroenterology [address] [place] [address] Danya Marcus APRN Social History Tobacco Use Types Packs/Day Years [...] Date Ralf rded Speak language other than Nicaraguan at home Not on file 12/11/2023 Want [...] Description 12/28/2024 11:00 AM EST Office Visit [facility] Gastroenterology [address] [place] [phone] Christopher Mcghee MD [address] [facility] [address] [place] [address] documented as of this encounter Visit Diagnoses Not on filedocumented in this encounter Care Teams Net Web Developer Relationship Specialty Start Date End Date Uyen Hines MD [address] [place] [phone] PCP - General Family Medicine 02/11/23 Gee Quan APRN [address] [place] [address] Nurse Practitioner 02/24/23 documented as of this encounter
--- OUTSIDE RECORDS SUMMARY | 2024-10-19 10:50 | XMS_ITS | Encounter Summary ---
Author Organization [employer] Address [address] [place] [address] Care Team Providers Care Restaurant Management Internship Name Role Phone Uyen Hines MD Primary Care Provider [phone] Gee Quan ROVING CHANGER Unavailable [phone] Encounter Details Date Type Department Care Team (Latest Contact Info) Description 03/18/2024 Travel Social History Tobacco Use Types Packs/Day [...] Date Ralf rded Speak language other than Italian at home Not on file 12/11/2023 Want [...] Description 12/28/2024 11:00 AM EST Office Visit [facility] Gastroenterology [address] [place] [address] Christopher Mcghee MD [address] [facility] [address] [place] [address] documented as of this encounter Visit Diagnoses Not on filedocumented in this encounter Care Teams Restaurant Management Internship Relationship Specialty Start Date End Date Uyen Hines MD [address] [place] [address] PCP - General Family Medicine 02/11/23 Gee Quan, CAMELIA [address] [place] [address] Nurse Practitioner 02/24/23 documented as of this encounter
--- OUTSIDE RECORDS SUMMARY | 2024-10-19 10:50 | XMS_ITS | Encounter Summary ---
Author Organization [employer] Address [address] [place] [address] Care Team Providers Care Tile Installer Name Role Phone Uyen Hines MD Primary Care Provider [phone] Gee Quan MEDICAL ASSISTING INSTRUCTOR Unavailable [phone] Encounter Details Date Type Department Care Team (Late st Contact Info) Description 12/18/2023 Orders Only [facility] Gastroenterology [address] [place] [address] Christopher Mcghee MD [address] [place] [address] Social History Tobacco Use Types Packs/Day Years [...] Date Ralf rded Speak language other than Guatemalan at home Not on file 12/11/2023 Want [...] Office Visit [facility] Gastroenterology [address] [place] [address] Christopher Mcghee MD [address] [facility] [address] [place] [address] documented as of this encounter Visit Diagnoses Not on filedocumented in this encounter Care Teams Tile Installer Relationship Specialty Start Date End Date Uyen Hines MD [address] [place] [phone] PCP - General Family Medicine 02/11/23 Gee Quan APRN [address] [place] [address] Nurse Practitioner 02/24/23 documented as of this encounter
--- OUTSIDE RECORDS SUMMARY | 2024-10-19 10:50 | XMS_ITS | Encounter Summary ---
Author Organization [employer] Address [address] [place] [address] Care Team Providers Care Hair Preparer Name Role Phone Uyen Hines MD Primary Care Provider [phone] Gee Quan SOW FARM BARN TECHNICIAN Unavailable [phone] Encounter Details Date Type Department Care Team (Latest Contact Info) Description 01/05/2024 Travel Social History Tobacco Use Types Packs/Day [...] Description 12/28/2024 11:00 AM EST Office Visit [facility] Gastroenterology [address] [place] [address] Christopher Mcghee MD [address] [facility] [address] [place] [address] documented as of this encounter Visit Diagnoses Not on filedocumented in this encounter Care Teams Hair Preparer Relationship Specialty Start Date End Date Uyen Hines MD [address] [place] [phone] PCP - General Family Medicine 02/11/23 Gee Quan, CAMELIA [address] [place] [address] Nurse Practitioner 02/24/23 documented as of this encounter
--- OUTSIDE RECORDS SUMMARY | 2024-10-19 10:50 | XMS_ITS | Encounter Summary ---
Author Organization [employer] Address [address] [place] [address] Care Team Providers Care Field Crop Harvest Worker Name Role Phone Uyen Hines MD Primary Care Provider [phone] Gee Quan APRN Unavailable [phone] Encounter Details Date Type Department Care Team (Latest Contact Info) Description 04/10/2024 9:30 PM EDT Lab Patient [facility] [address] [place] [address] Danya Marcus APRN Diarrhea, unspecified type [...] Date Ralf rded Speak language other than South Sudanese at home Not on file 12/11/2023 Want [...] Encounter Note - Danya Marcus APRN - 04/10/2024 9:30 PM EDT Notify patient that stool tests are positive for inflammatory proteins. Will resubmit order for MRIof small intestine to her insurance for approval. She will need to provide the MRI Department with information about her implanted pain pump to ensure that it is MRI compatible. (A copy of the cyber security administrator's card should suffice). Stool test also suggests pancreatic insufficiency which can cause diarrhea, abdominal bloating and pain. Needs to start taking pancreatic enzymes. I prescription will be sent to her pharmacy. Take with every meal and snacks as ordered. documented in this encounter Plan of Treatment Upcoming Encounters Date Type Department Care Team (Late st Contact Info) Description 12/28/2024 11:00 AM EST Office Visit [facility] Gastroenterology [address] [place] [address] Christopher Mcghee MD [address] [facility] [address] [place] [address] documented as of this encounter Procedures Procedure Name Priority Date/Time Associated Diagnosis Comments OVA AND PARASITE, FECAL(SENDOUT) Routine 04/11/2024 5:43 AM EDT Diarrhea, unspecified type PANCREATIC ELASTASE FECAL BY IMMUNOASSAY(SENDOUT ) Routine 04/10/2024 6:10 PM EDT Diarrhea, unspecified type LACTOFERRIN, FECAL BY ADELAIDE(SENDOUT) Routine 04/10/2024 6:10 PM EDT Diarrhea, unspecified type CALPROTECTIN, FECAL BY IMMUNOASSAY(SENDOUT ) Routine 04/10/2024 6:10 PM EDT Diarrhea, unspecified type documented in this encounter Results * Ova and Parasite, Fecal(SENDOUT) (04/11/2024 5:43 AM EDT) Ova and Parasite, Fecal Interpretation Negative Negative 04/13/2024 10:57 PM EDT [facility] Comment: INTERPRETIVE INFORMATION: Ova and Parasite, Fecal Method for identification of Ova and Parasites includes wet mount and trichrome stains. Due to the various shedding cycles of many parasites, three separate stool specimens collected over a 5-7-day period are recommended for ova and parasite examination. A single negative result does not rule out the possibility of a parasitic infection. The ova and parasite exam does not specifically detect Cryptosporidium, Cyclospora, Cystoisospora, and Microsporidia. For additional test information refer to [employer] consult, [email or web address] Performed By: [facility] [address] [place] [address] Day Care Assistant: Pancho Estrada MD, PhD CLIA Number: [id number] Stool 04/11/2024 5:43 AM EDT 04/11/2024 5:44 AM EDT us Danya Marcus APRN MICROBIOLOGY - GENERAL ORDERAB LES Final Result [facility] [address] [place] [address], [facility] [phone] * (ABNORMAL) Pancreatic Elastase Fecal by Immunoassay(SENDOUT) (04/10/2024 6:10 PM EDT) Pancreatic Elastase, Fecal 18(L) >=100 ug/g 04/13/2024 11:06 PM EDT [facility] Comment: REFERENCE INTERVAL: Pancreatic Elastase Fecal by ?Immunoassay ??Less than 100 ug/g............Severe insufficiency ??100 - 199 ug/g................Moderate insufficiency ??200 ug/g or greater...........Normal INTERPRETIVE INFORMATION: Pancreatic Elastase ?Fecal by Immunoassay Reference intervals do not apply for infants less than one month old. Performed By: [facility] [address] [place] [address] Day Care Assistant: Pancho Estrada MD, PhD CLIA Number: [id number] Stool 04/10/2024 6:10 PM EDT 04/10/2024 10:21 PM EDT Danya Marcus APRN MICROBIOLOGY - GENERAL ORDERAB LES Final Result Performing Organization Address [facility]/State/ZIP Co de Phone Number [facility] [address] [place] [address], [facility] [phone] * (ABNORMAL) Lactoferrin, Fecal by ADELAIDE(SENDOUT) (04/10/2024 6:10 PM EDT) Lactoferrin, Fecal by ADELAIDE Positive( A) Negative 04/13/2024 11:36 PM EDT [facility] Comment: A positive result is indicative of the presence of lactoferrin, a marker for fecal leukocytes. Performed By: [facility] [address] [place] [address] Day Care Assistant: Pancho Estrada MD, PhD CLIA Number: [id number] Stool 04/10/2024 6:10 PM EDT 04/10/2024 10:21 PM EDT Danya Marcus APRN MICROBIOLOGY - GENERAL ORDERAB LES Final Result Performing Organization Address [facility] de Phone Number [facility] [address] [place], [place] [address] [phone] * (ABNORMAL) Calprotectin, Fecal by Immunoassay(SENDOUT) (04/10/2024 6:10 PM EDT) Calprotectin, Fecal 476(H) <=49 ug/g 04/15/2024 3:44 PM EDT [facility] Comment: REFERENCE INTERVAL: Calprotectin, Fecal by Immunoassay ??Less than 50 ug/g.........Normal ??50-120 ug/g...............Borderline elevated, test should be ?re-evaluated in 4-6 weeks. ??121 ug/g or greater.......Elevated Performed By: [facility] [address] [place] [address] Day Care Assistant: Pancho Estrada MD, PhD CLIA Number: [id number] Stool 04/10/2024 6:10 PM EDT 04/10/2024 10:21 PM EDT us Danya Marcus APRN MICROBIOLOGY - GENERAL ORDERAB LES Final Result Performing Organization Address [facility] de Phone Number [facility] [address] [phone] documented in this encounter Visit Diagnoses Diagnosis Diarrhea, unspecified type documented in this encounter Care Teams Field Crop Harvest Worker Relationship Specialty Start Date End Date Uyen Hines MD [address] [place] [phone] PCP - General Family Medicine 02/11/23 Gee Quan APRN [address] [place] [address] Nurse Practitioner 02/24/23 documented as of this encounter
--- OUTSIDE RECORDS SUMMARY | 2024-10-19 10:51 | XMS_ITS | Encounter Summary ---
Author Organization [facility] [employer] Address [address] [place] [address] Care Team Providers Care Day Care Assistant Name Role Phone Uyen Hines MD Primary Care Provider Gee Quan TISSUE REWINDER Unavailable [phone] Reason for Visit * Consultation (Routine) - Closed Specialty Diagnoses / Procedures Referred By Christopher yuan Referred To Contact Physical Therapy Diagnoses Cervicogenic headache Abnormal findings on diagnostic imaging of other parts of musculoskeletal system Cervicalgia Migraine with aura, not intractable, without status migrainosus Gee Quan, TISSUE REWINDER [address] [place] [address] Phone: tel: fax: [facility] Physical Therapy [address] [place] [address] Phone: tel: fax:[phone] Referral ID Status Reason Start Date Expiration Date V isits Requested Visits Authorized [id number] Closed Specialty Services Required 02/27/2023 06/27/2023 8 8 Encounter Details Date Type Department Care Team (Late st Contact Info) Description 03/20/2023 11:00 AM EDT Treatment [facility] Physical Therapy [address] [place] [address] Honorio Montero PTA Cervicalgia (Primary Dx) Social History Tobacco Use Types Packs/Day Years Used Date Smoking Tobacco: Never Smokeless Tobacco: Never Alcohol Use Standard Drinks/Week Comments Never 0 (1 standard drink = 0.6 oz pur e alcohol) Comments Unknown Sex and Gender Information Value Date Recorded Sex Assigned at Not on file Legal Sex Female 5:55 PM CDT Gender Identity Not on file Sexual Orientation Not on file COVID-19 Exposure Response Date Recorded In the last 10 days, have yo u been in contact with someone who was confirmed or suspected to have Coronavirus/COVID-19? No / Unsure 02/24/2023 11:37 AM EDT documented as of this encounter Progress Notes * Honorio Kylah, UTILITY SPRAY OPERATOR - 03/20/2023 11:00 AM EDT Images from the original note were not included. Outpatient Physical Therapy Treatment Note Date of Service: 03/20/2023 Time In: 1051 Time Out: 1129 Patient name: Tessie Roa : 1980, 42 y.o. Medical Diagnosis: 1. Cervicalgia Referring Provider: Gee Quan APRN Payor: MEDICAID - MEDICAID MG CARE / Plan: [facility] / Product Type: *No Product type* / Visit # / Total Visits: SUBJECTIVE Pt reporting she is having increased soreness upon arrival to today's session. Pt stating soreness has improved but continues to be present since previous session. Pain: 04/02 OBJECTIVE INTERVENTIONS Therapeutic Exercise Sets x Repetitions Weight/Resistance Cues/Comments HEP pulleys 3'/3' Flexion/abduction [] UBE 3'/3' Fwd/retro [] Cervical extension with overpressure 2' [] Cervical rotation with overpressure 2' [] Chin tucks x30 [] Lateral raises x30 RTB [] Upright row x30 RTB [] Shrugs x30 2lbs [] T-band Series x30 red Ext, rows [] Thoracic extension over chair 2' [] [] [] [] [] [] [] [] [] [] [] Total Time (min): 38 ASSESSMENT Pt tolerated all interventions this session without any adverse effects. Pt stating she continues to experience soreness upon completion of session. Thoracic extension over chair initiated this session to further improve mobility and decrease symptoms, pt tolerates without any report of increased pain. Pt will continue to benefit from skilled therapy to improve cervical mobility as well as scapular strength and endurance. PLAN Interventions: Continue Therapeutic Exercise (70613) Prognosis: Good Patient requires follow-up: Yes Total Treatment (min): 38 Timed Treatment (min): Therapeutic Exercise (45170) 38 minutes Electronically signed: Honorio Montero PTA 03/20/2023, 11:34 AM EDT documented in this encounter Plan of Treatment Upcoming Encounters Date Type Department Care Team (Late st Contact Info) Description 12/28/2024 11:00 AM EST Office Visit [facility] Gastroenterology [address] [place] [address] Christopher Mcghee MD [address] [facility] [address] [place] [address] documented as of this encounter Visit Diagnoses Diagnosis Cervicalgia- Primary documented in this encounter Care Teams Day Care Assistant Relationship Specialty Start Date End Date Uyen Hines MD [address] [place] [address] PCP - General Family Medicine 02/11/23 Gee Quan APRN [address] [place] [address] Nurse Practitioner 02/24/23 documented as of this encounter
--- OUTSIDE RECORDS SUMMARY | 2024-10-19 10:51 | XMS_ITS | Encounter Summary ---
Author Organization [employer] Address [address] [place] [address] Care Team Providers Care Pump Technician Name Role Phone Uyen Hines MD Primary Care Provider [phone] Gee Quan MAINTENANCE TECHNICIAN 2ND SHIFT Unavailable [phone] Reason for Visit * Consultation (Routine) - Closed Specialty Diagnoses / Procedures Referred By Christopher yuan Referred To Contact Physical Therapy Diagnoses Cervicogenic headache Abnormal findings on diagnostic imaging of other parts of musculoskeletal system Cervicalgia Migraine with aura, not intractable, without status migrainosus Gee Quan, CAMELIA [address] [place] [address] Phone: tel: fax: [facility] Physical Therapy [address] [place] [address] Phone: tel: fax:[phone] Referral ID Status Reason Start Date Expiration Date V isits Requested Visits Authorized [id number] Closed Specialty Services Required 02/27/2023 06/27/2023 8 8 Encounter Details Date Type Department Care Team (Late st Contact Info) Description 03/06/2023 10:00 AM EDT Treatment [facility] Physical Therapy [address] [place] [address] Gee Quan APRN [address] [facility] [address] [place] [address] Honorio Montero ISIDORO Cervicalgia (Primary Dx) Social History Tobacco Use [...] Recorded In the last 10 days, have du cortez been in contact with someone who was confirmed or suspected to have Coronavirus/COVID-19? No / Unsure 02/24/2023 11:37 AM EDT documented as of this encounter Progress Notes * Honorio Montero ISIDORO - 03/06/2023 10:00 AM EDT Images from the original note were not included. Outpatient Physical Therapy Treatment Note Date of Service: 03/06/2023 Time In: 951 Time Out: 1031 Patient name: Tessie Roa : 1980, 42 y.o. Medical Diagnosis: 1. Cervicalgia Referring Provider: Gee Quan APRN Payor: MEDICAID - MEDICAID MGD CARE / Plan: [facility] / Product Type: Medicaid Contracted / Visit # / Total Visits: 2 / 8 SUBJECTIVE Pt reporting stating she experienced increased pain and fatigue a couple hours after previous session but felt better that night and even yesterday. Pt does not have any report of increased pain uponarrival to today's session. Pain: 5/10 OBJECTIVE INTERVENTIONS Therapeutic Exercise Sets x Repetitions Weight/Resistance Cues/Comments HEP pulleys 2'/2' Flexion/abduction [] UBE 3'/3' Fwd/retro [] Cervical extension with overpressure 2' [] Cervical rotation with overpressure 2' [] Chin tucks x30 [] Lateral raises x30 RTB [] Upright row x30 RTB [] [] [] [] [] [] [] [] [] [] [] [] [] [] Total Time (min): 40 ASSESSMENT Pt tolerated interventions well this session without any adverse effects. Pt provided rest breaks as needed due to increased fatigue. Extended time provided this session to provide pt education regarding normal soreness following therapy sessions and keeping mental note of pain and soreness for proper progression of interventions per tolerance. Held on further progression of interventions this session to assess pt tolerance to interventions this session with hopes of decreased pain. Pt will continue to benefit from skilled therapy to improve cervical mobility as well as scapular strength and stability. PLAN Interventions: Continue Therapeutic Exercise (16421) Prognosis: Good Patient requires follow-up: Yes Total Treatment (min): 40 Timed Treatment (min): Therapeutic Exercise (20639) 40 minutes Electronically signed: Honorio Montero PTA 03/06/2023, 3:20 PM EDT documented in this encounter Plan of Treatment Upcoming Encounters Date Type Department Care Team (Late st Contact Info) Description 12/28/2024 11:00 AM EST Office Visit [facility] Gastroenterology [address] [place] [address] Christopher Mcghee MD [address] [facility] [address] [place] [address] documented as of this encounter Visit Diagnoses Diagnosis Cervicalgia- Primary documented in this encounter Care Teams Pump Technician Relationship Specialty Start Date End Date Uyen Hines MD [address] [place] [address] PCP - General Family Medicine 02/11/23 Gee Quan APRN [address] [place] [address] Nurse Practitioner 02/24/23 documented as of this encounter
--- OUTSIDE RECORDS SUMMARY | 2024-10-19 10:51 | XMS_ITS | Encounter Summary ---
Author Organization [employer] Address [address] [place] [address] Care Team Providers Care Superintendent Overhead Distribution Name Role Phone Uyen Hines MD Primary Care Provider [phone] Gee Quan STORAGE MANAGEMENT CONSULTANT Unavailable [phone] Encounter Details Date Type Department Care Team (Latest Contact Info) Description 12/16/2023 Travel Social History Tobacco Use Types Packs/Day [...] Date Ralf rded Speak language other than Lithuanian at home Not on file 12/11/2023 Want [...] 12 months Not on file 12/11/2023 Comments Unknown Sex and Gender Information Value [...] [facility] Gastroenterology [address] [place] [address] Christopher Mcghee MD [address] [facility] [address] [place] [address] documented as of this encounter Visit Diagnoses Not on filedocumented in this encounter Care Teams Superintendent Overhead Distribution Relationship Specialty Start Date End Date Uyen Hines MD [address] [place] [address] PCP - General Family Medicine 02/11/23 Gee Quan, STORAGE MANAGEMENT CONSULTANT [address] [place] [address] Nurse Practitioner 02/24/23 documented as of this encounter
--- OUTSIDE RECORDS SUMMARY | 2024-10-19 10:51 | XMS_ITS | Encounter Summary ---
Author Organization [employer] Address [address] [place] [address] Care Team Providers Care Program Management Manager Name Role Phone Uyen Hines MD Primary Care Provider [phone] Gee Quan HEEL EDGE INKER MACHINE Unavailable [phone] Reason for Visit * Consultation (Routine) - Closed Specialty Diagnoses / Procedures Referred By Christopher yuan Referred To Contact Physical Therapy Diagnoses Cervicogenic headache Abnormal findings on diagnostic imaging of other parts of musculoskeletal system Cervicalgia Migraine with aura, not intractable, without status migrainosus Gee Quan, CAMELIA [address] [place] [address] Phone: tel: fax: [facility] Physical Therapy [address] [place] [address] Phone: tel: fax:[phone] Referral ID Status Reason Start Date Expiration Date V isits Requested Visits Authorized [id number] Closed Specialty Services Required 02/27/2023 06/27/2023 8 8 Encounter Details Date Type Department Care Team (Late st Contact Info) Description 03/04/2023 4:00 PM EDT Treatment [facility] Physical Therapy [address] [place] [address] Gee Quan APRN [address] [facility] [address] [place] [address] Honorio Montero PTA Cervicalgia (Primary Dx) Social [...] this encounter Progress Notes * Honorio Montero PTA - 03/04/2023 4:00 PM EDT Images from the original note were not included. Outpatient Physical Therapy Treatment Note Date of Service: 03/04/2023 Time In: 1558 Time Out: 1628 Patient name: Tessie Roa : 1980, 42 y.o. Medical Diagnosis: 1. Cervicalgia Referring Provider: Uyen Hines MD Payor: MEDICAID - MEDICAID MG CARE / Plan: [facility] / Product Type: Medicaid Contracted / Visit # / Total Visits: SUBJECTIVE Pt reporting she is experiencing her normal pain upon arrival to today's session. Pt reporting nothing seems to change the pain, sometimes it is worse than others. Pt reporting compliance with HEP atthis time. Pain: 5/10 OBJECTIVE INTERVENTIONS Therapeutic Exercise Sets x Repetitions Weight/Resistance Cues/Comments HEP pulleys 2'/2' Flexion/abduction [] UBE 3'/3' Fwd/retro [] Cervical extension with overpressure 2' [] Cervical rotation with overpressure 2' [] Chin tucks x30 [] Lateral raises x30 RTB [] Upright row x30 RTB [] [] [] [] [] [] [] [] [] [] [] [] [] [] Total Time (min): 30 ASSESSMENT Pt tolerated session well without any report of increased cervical pain. Pt stating she experiencedincreased burning sensation upon completion of session, education pt on normal soreness following therapy sessions. Pt provided verbal cues as needed to correct form and muscle recruitment. Pt early into rehab but will continue to assess pt tolerance to interventions and progress pt as tolerated. PLAN Interventions: Continue Therapeutic Exercise (61430) Prognosis: Good Patient requires follow-up: Yes Total Treatment (min): 30 Timed Treatment (min): Therapeutic Exercise (65771) 30 minutes Electronically signed: Honorio Montero PTA 03/04/2023, 5:28 PM EDT documented in this encounter Plan of Treatment Upcoming Encounters Date Type Department Care Team (Late st Contact Info) Description 12/28/2024 11:00 AM EST Office Visit [facility] Gastroenterology [address] [place] [address] Christopher Mcghee MD [address] [facility] [address] [place] [address] documented as of this encounter Visit Diagnoses Diagnosis Cervicalgia- Primary documented in this encounter Care Teams Program Management Manager Relationship Specialty Start Date End Date Uyen Hines MD [address] [place] [address] PCP - General Family Medicine 02/11/23 Gee Quan, CAMELIA [address] [place] [address] Nurse Practitioner 02/24/23 documented as of this encounter
--- OUTSIDE RECORDS SUMMARY | 2024-10-19 10:51 | XMS_ITS | Encounter Summary ---
Author Organization [employer] Address [address] [place] [address] Care Team Providers Care Filter Plant Operator Name Role Phone Uyen Hines MD Primary Care Provider [phone] Gee Quan POLICE DETENTION ATTENDANT Unavailable [phone] Reason for Referral * Flouroscopy (Routine) - Closed Specialty Diagnoses / Procedures Referred By Christopher yuan Referred To Contact Diagnoses Esophageal dysphagia Eosinophilic esophagitis Diarrhea, unspecified type Generalized abdominal pain Procedures FL ESOPHAGRAM BARIUM Josefina Ziegler PA-C Referral ID Status Reason Start Date Expiration Date Visits Re quested Visits Authorized [id number] Closed 08/04/2023 01/31/2024 1 1 Reason for Visit * Flouroscopy (Routine) - Closed Specialty Diagnoses / Procedures Referred By Christopher yuan Referred To Contact Diagnoses Esophageal dysphagia Eosinophilic esophagitis Diarrhea, unspecified type Generalized abdominal pain Procedures FL ESOPHAGRAM BARIUM Josefina Ziegler PA-C Referral ID Status Reason Start Date Expiration Date Visits Re quested Visits Authorized [id number] Closed 08/04/2023 01/31/2024 1 1 Encounter Details Date Type Department Care Team (Latest Contact Info) Description 08/21/2023 9:23 AM EDT - 08/21/2023 11:59 PM EDT Hospital Encounter [facility] Diagnostic Imaging [address] [place] [address] Josefina Ziegler PA-C Esophageal dysphagia; Eosinophilic esophagitis; Diarrhea, unspecified type; Generalized abdominal pain Discharge Disposition: Home or [...] suspected to have Coronavirus/COVID-19? No / Unsure 08/21/2023 9:23 AM EDT documented as of this encounter Medications at [...] (10 mg total) by mouth daily. 01/16/2023 TiZANidine (ZANAFLEX) 4 MG capsule Take 1 capsule (4 mg total) by mouth 3 (three) times daily. ubrogepant 100 mg Tab Take by mouth. fluticasone propionate (Flovent HFA) 220 mcg/actuation inhaler Inhale 2 puffs by mouth via inhaler. 09/25/2022 pantoprazole (PROTONIX) 40 MG tablet Take 1 tablet (40 mg total) by mouth 2 (two) times daily. 01/16/2023 4 documented as of this encounter Miscellaneous Notes * Result Encounter Note - Nicolette Rodgers CMA - 08/21/2023 10:00 AM EDT Approval is pending. Thank you. documented in this encounter Plan of Treatment Upcoming Encounters Date Type Department Care Team (Late st Contact Info) Description 12/28/2024 11:00 AM EST Office Visit [facility] Gastroenterology [address] [place] [address] Christopher Mcghee MD [address] [place] [address] documented as of this encounter Procedures Procedure Name Priority Date/Time Associated Diagnosis Comments FL ESOPHAGRAM BARIUM Routine 08/21/2023 9:46 AM EDT Esophageal dysphagia Eosinophilic esophagitis Diarrhea, unspecified type Generalized abdominal pain documented in this encounter Results * FL ESOPHAGRAM BARIUM (08/21/2023 9:46 AM EDT) Anatomical Region Laterality Modality Esophagus X-Ray 08/21/2023 1:46 PM EDT Impressions 08/21/2023 3:37 PM EDT Minimal esophageal dysmotility. Images reviewed, interpreted, and dictated by Dr. Yohannes Rodriguez. Transcribed by Juan Cullen PA-C. Narrative 08/21/2023 3:37 PM EDT ESOPHAGRAM HISTORY: Dysphagia. FLUOROSCOPY TIME: 1.7 minutes , there are 11 fluoroscopic spot images. RADIATION DOSE: Air Kerma: 111 mGy PROCEDURE: The patient ingested barium. Effervescent crystals were also administered. Spot and overhead films were obtained. FINDINGS: ??The esophagus is normal. There is no hiatal hernia . ??There is no gastroesophageal reflux . There is minimal esophageal dysmotility. A 13 mm barium tablet passes easily through the esophagus into the stomach. Procedure Note Yohannes Rodriguez MD - 08/21/2023 ESOPHAGRAM HISTORY: Dysphagia. FLUOROSCOPY TIME: 1.7 minutes , there are 11 fluoroscopic spot images. RADIATION DOSE: Air Kerma: 111 mGy PROCEDURE: The patient ingested barium. Effervescent crystals were also administered. Spot and overhead films were obtained. FINDINGS: The esophagus is normal. There is no hiatal hernia . There is no gastroesophageal reflux . There is minimal esophageal dysmotility. A 13 mm barium tablet passes easily through the esophagus into the stomach. IMPRESSION: Minimal esophageal dysmotility. Images reviewed, interpreted, and dictated by Dr. Yohannes Rodriguez. Transcribed by Juan Cullen PA-C. Josefina Ziegler PA-C IM FLUOROSCOPY ORDERABLES Fi nal Result documented in this encounter Visit Diagnoses Diagnosis Esophageal dysphagia Dysphagia, pharyngoesophageal phase Eosinophilic esophagitis Diarrhea, unspecified type Generalized abdominal pain Abdominal pain, generalized documented in this encounter Administered Medications Inactive Administered Medications - up to 3 most recent administrations Medication Order MAR Action Action Date Dose Rate Site barium sulfate (E-Z-HD BARIUM) suspension 98% 142.51 mL Once (rounded from 142.515 mL = 340 g), oral, On Linda 08/21/23 at 1000, For 1 dose, Intra-op Given 08/21/2023 9:47 AM EDT 140 mLs barium sulfate 96 % (w/w) SusR 183 mL 183 mL Once (rounded from 183.3333 mL = 176 g), oral, On Linda 08/21/23 at 1000, For 1 dose, Intra-op Given 08/21/2023 9:47 AM EDT 183.3333 mLs barium sulfate tablet 700 mg 700 mg Once, oral, On Linda 08/21/23 at 1000, For 1 dose, Intra-op Given 08/21/2023 9:47 AM EDT 700 mg sod bicarb-citric ac-simethicone (EZ GAS II) effervescent granules 4 g 4 g Once, oral, On Linda 08/21/23 at 1000, For 1 dose, Intra-op Given 08/21/2023 9:47 AM EDT 4 g documented in this encounter Care Teams Filter Plant Operator Relationship Specialty Start Date End Date Uyen Hines MD [address] [place] [id number] PCP - General Family Medicine 02/11/23 Gee Quan APRN [address] [place] [address] Nurse Practitioner 02/24/23 documented as of this encounter
--- OUTSIDE RECORDS SUMMARY | 2024-10-19 10:51 | XMS_ITS | Encounter Summary ---
Author Organization [employer] Address [address] [place] [address] Care Team Providers Care Tree Expert Name Role Phone Uyen Hines MD Primary Care Provider [phone] Gee Quan FISHER HAND LINE Unavailable [phone] Reason for Visit * Consultation (Routine) - Closed Specialty Diagnoses / Procedures Referred By Christopher yuan Referred To Contact Physical Therapy Diagnoses Cervicogenic headache Abnormal findings on diagnostic imaging of other parts of musculoskeletal system Cervicalgia Migraine with aura, not intractable, without status migrainosus Gee Quan, CAMELIA [address] [place] [address] Phone: tel: fax: [facility] Physical Therapy [address] [place] [address] Phone: tel: fax:[phone] Referral ID Status Reason Start Date Expiration Date V isits Requested Visits Authorized [id number] Closed Specialty Services Required 02/27/2023 06/27/2023 8 8 Encounter Details Date Type Department Care Team (Late st Contact Info) Description 02/27/2023 3:00 PM EDT Evaluation [facility] Physical Therapy [address] [place] [address] Gee Quan APRN [address] [facility] [address] [place] [address] Kb Renae, PT Cervicalgia (Primary Dx) Social History Tobacco Use [...] as of this encounter Progress Notes * Kb Renae PT - 02/27/2023 3:00 PM EDT Images from the original note were not included. Outpatient Therapy Services Physical Therapy Evaluation Date of Service: 02/27/2023 Time In: 1500 Time Out: 1545 Patient name: Tessie Roa : 1980, 42 y.o. Medical Diagnosis: 1. Cervicalgia AMB REFERRAL TO PHYSICAL THERAPY EVALUATE, TREAT AND PLAN OF CARE Referring Provider: Uyen Hines MD Payor: MEDICAID - MEDICAID [facility] / Plan: [facility] / Product Type: Medicaid Contracted / Date of Onset: 02/21/2023 Visit # / Total Visits: Past Medical History: Diagnosis Date ??? Anxiety [...] BALLOON DILATION; Surgeon: Christopher Mcghee MD; Location: [facility]; Service: Gastroenterology; Laterality: N/A; Current Outpatient Medications: ??? acetaminophen (TYLENOL ARTHRITIS [...] 1 tablet (81 mg total) by mouth in the morning., Disp: , Rfl: ??? busPIRone (BUSPAR) 7.5 MG tablet, Take by mouth., Disp: , Rfl: ??? carvediloL (COREG) 6.25 MG tablet, Take 1 tablet (6.25 mg total) by mouth 2 (two) times daily with breakfast and dinner., Disp: , Rfl: ??? escitalopram oxalate (LEXAPRO) 20 MG tablet, Take 1 tablet (20 mg total) by mouth., Disp: , Rfl: ??? fluticasone propionate (Flovent HFA) 220 mcg/actuation inhaler, Inhale 2 puffs by mouth via inhaler., Disp: , Rfl: ??? levothyroxine (SYNTHROID, LEVOTHROID) 200 MCG tablet, Take 1 tablet (200 mcg total) by mouth., Disp: , Rfl: ??? lisinopriL (PRINIVIL,ZESTRIL) 10 MG tablet, Take 1 tablet (10 mg total) by mouth in the morning., Disp: , Rfl: ??? pantoprazole (PROTONIX) 40 MG tablet, Take 1 tablet (40 mg total) by mouth in the morning and 1tablet (40 mg total) before bedtime., Disp: , Rfl: ??? TiZANidine (ZANAFLEX) 4 MG capsule, Take 1 capsule (4 mg total) by mouth in the morning and 1 capsule (4 mg total) at noon and 1 capsule (4 mg total) in the evening., Disp: , Rfl: ??? ubrogepant 100 mg Tab, Take by mouth., Disp: , Rfl: No Known Allergies Contraindications/Precautions:None Previous Physical Therapy:Has had previous PT on L shoulder x2 following surgeries. Prior Functional Status: Independent with ADL, no AD. Personal Information Marital Status: Resides with: Spouse Signs of Abuse: No Hand Dominance: Right Work Status: Unemployed SUBJECTIVE Patient states she has had neck pain for several years that has caused migrianes. She states she has headaches and migraines almost constantly. Pain Current: 06/02 Least: 10 Worst: 10 Description: Aching and Throbbing OBJECTIVE There were no vitals taken for this visit. Test/Measurements Cervical ROM Degrees Flexion 50 Extension 50 Left Sidebend 35 Right Sidebend 45 Left Rotation 70 Right Rotation 74 Shoulder ROM (degrees) LEFT Flexion 120 Abduction 90 Internal Rotation PSIS External Rotation 45 Strength Shoulder/Scapula LEFT RIGHT Flexion 4-/5 5/5 Abduction 4/5 5/5 External Rotation 4-/5 5/5 Internal Rotation 4/5 5/5 Vestibular Special Tests Lynn-Hallpike Right + Functional Outcome Measure: NDI= 60% INTERVENTIONS Therapeutic Exercise Sets x Repetitions Weight/Resistance Cues/Comments HEP Chin Tucks 3x10 [x] Upright Row 3x10 red [x] Lateral Raises 3x10 red [x] [] [] [] [] [] Canalith Repositioning Dariusz Maneuver to R provoked symptoms and completed treatment without difficulty. Patient was negative for Preston-Hallpike on L. Total Treatment (min): 45 min Timed Treatment (min): Therapeutic Exercise (64873) 8 minutes Canolith Repositioning Per Day (72427) ASSESSMENT Patient is a 42 year old female who presents to the clinic on 02/27/2023 for evaluation and treatmentof migraines and neck pain. Patient states she has had pain and migraines for 3 years. She states she has had 2 left shoulder procedures that did not rehab well. With objective testing patient significant lack of range of motion in all cervical planes. When patient went into extension she became dizzy and elected to under go BPPV testing. Patient was positive for R preston-hallpike and an dariusz maneuver was performed following evaluation findings. Patient also demonstrates decreased strength of LUEwhen compared to R. Patient has significant chip frier weakness in L hand. Patient has had prior shoulder surgeries and has significant loss of range of motion in left shoulder. Patient will benefit from management by a physical therapist to increase strength, increase range of motion, reduce headaches, and reduce dizziness to return patient to premorbid status. Overall rehab potential is Fair. The patient was educated and verbalized understanding regarding their diagnosis, prognosis, and plan of care. The patient demonstrates a good understanding of the risks, benefits, precautions/contraindications, & prognosis of their skilled rehabilitation episodeof care. Barriers to Rehab: No Learning Barriers PLAN OF CARE Tessie Roa requires skilled physical therapy services to address the below stated problems/goals, using Therapeutic Exercise (67348), Therapeutic Activity (10975), Manual Therapy (71290), Neuromuscular Re-education (74154), Pt/CG Education, Needle Insertion 1 or 2 Muscles () , Needle Insertion 3 or more Muscles () and Canolith Repositioning Per Day (38166). Skilled intervention required to decrease pain, increase range of motion, increase strength, improve functional mobility, learn home exercise program and return to premorbid state. Prognosis: Fair Problems: Pain Decreased ROM Decreased strength Decreased functional mobility Patient Goal: Decreased Pain Improve Mobility Improve Strength Resume ADL's w/o Symptoms Return to Prior Activity Level Learn Home Exercise Program Patient Education: Eval results/Plan of Care and HEP Keno Clerk Goals: 1. Patient will score a 30% on NDI in 12 weeks in order to demonstrate a clinically significant improvement in subjective function for activities such as lying flat in bed to sleep. 2. Patient will increase chip frier strength to 60lbs in 12 weeks to allow the patient to carry her groceries without dropping. 3. Patient will report of pain <3/10 in 12 weeks which will allow her to complete household ADL without rest breaks. 4. Patient will be independent with discharge home exercise program to improve self-care ADL's. Plan of Care Certification Date: 02/27/2023 - 05/29/2023 Frequency/Duration: 2x/Week for 12 weeks Electronically signed by: Kb Renae PT 02/27/2023, 5:03 PM EDT I certify that these services are medically necessary and are furnished under this plan of treatment, while patient remains under my care. Signature of Physician Date & Time documented in this encounter Plan of Treatment Upcoming Encounters Date Type Department Care Team (Late st Contact Info) Description 12/28/2024 11:00 AM EST Office Visit [facility] Gastroenterology [address] [place] [address] Christopher Mcghee MD [address] [facility] [address] [place] [address] documented as of this encounter Visit Diagnoses Diagnosis Cervicalgia- Primary documented in this encounter Care Teams Tree Expert Relationship Specialty Start Date End Date Uyen Hines MD [address] [place] [address] PCP - General Family Medicine 02/11/23 Gee Quan, FISHER HAND LINE [address] [place] [address] Nurse Practitioner 02/24/23 documented as of this encounter
--- OUTSIDE RECORDS SUMMARY | 2024-10-19 10:51 | XMS_ITS | Encounter Summary ---
Author Organization [employer] Address [address] [place] [address] Care Team Providers Care Stacker Straightener Name Role Phone Uyen Hines MD Primary Care Provider [phone] Gee Quan FACTORY MACHINE COMPUTER OPERATOR Unavailable [phone] Reason for Visit * Consultation (Routine) - Closed Specialty Diagnoses / Procedures Referred By Christopher yuan Referred To Contact Physical Therapy Diagnoses Cervicogenic headache Abnormal findings on diagnostic imaging of other parts of musculoskeletal system Cervicalgia Migraine with aura, not intractable, without status migrainosus Gee Quan, FACTORY MACHINE COMPUTER OPERATOR [address] [place] [address] Phone: tel: fax: [facility] Physical Therapy [address] [place] [address] Phone: tel: fax:[phone] Referral ID Status Reason Start Date Expiration Date V isits Requested Visits Authorized [id number] Closed Specialty Services Required 04/03/2023 05/03/2023 5 5 Encounter Details Date Type Department Care Team (Late st Contact Info) Description 04/03/2023 8:00 AM EDT Treatment [facility] Physical Therapy [address] [place] [address] Kb Renae, PT Cervicalgia (Primary Dx) Social [...] on file documented as of this encounter Progress Notes * Kb Renae, PT - 04/03/2023 8:00 AM EDT Images from the original note were not included. Outpatient Physical Therapy Treatment Note Date of Service: 04/03/2023 Time In: 799 Time Out: 842 Patient name: Tessie Roa : 1980, 42 y.o. Medical Diagnosis: 1. Cervicalgia Referring Provider: Gee Quan APRN Payor: MEDICAID - MEDICAID [facility] / Plan: [facility] / Product Type: *No Product type* / Visit # / Total Visits: SUBJECTIVE Patient states she has had a rough morning before therapy. Pain: 04/02 OBJECTIVE INTERVENTIONS Therapeutic Exercise Sets x Repetitions Weight/Resistance Cues/Comments HEP pulleys 3'/3' Flexion/abduction [] UBE 3'/3' Fwd/retro [] Cervical extension with towel overpressure 2' [] Cervical rotation with towel overpressure 2' [] Chin tucks x30 [] Lateral raises x30 1lb [] Upright row x30 RTB [] Shrugs x30 2lbs [] T-band Series x30 green Ext, rows [] Thoracic extension over chair 2' [] Digiflex- L 2' Red [] Seated ulnar glides 2' 90-90 with wrist flexion/extension, R arm holding shoulder [] Scaption Raises x30 1lb [] [] [] [] [] [] [] [] Total Time (min): 43 ASSESSMENT Patient tolerated interventions with mild to moderate difficulty today. She states that due to her rough morning she felt like symptoms were exacerbated with strengthening interventions. Patient states mobility interventions were not as difficult as strengthening interventions. Patient states she has an MRI in the near future of cervical spine. Will continue to progress interventions as she is able. PLAN Interventions: Continue Therapeutic Exercise (13843) Prognosis: Good Patient requires follow-up: Yes Total Treatment (min): 43 Timed Treatment (min): Therapeutic Exercise (62393) 43 minutes Electronically signed: Kb Renae, PT 04/03/2023, 8:22 AM EDT documented in this encounter Plan of Treatment Upcoming Encounters Date Type Department Care Team (Late st Contact Info) Description 12/28/2024 11:00 AM EST Office Visit [facility] Gastroenterology [address] [place] [address] Christopher Mcghee MD [address] [facility] [address] [place] [address] documented as of this encounter Visit Diagnoses Diagnosis Cervicalgia- Primary documented in this encounter Care Teams Stacker Straightener Relationship Specialty Start Date End Date Uyen Hines MD [address] [place] [address] PCP - General Family Medicine 02/11/23 Gee Quan, FACTORY MACHINE COMPUTER OPERATOR [address] [place] [address] Nurse Practitioner 02/24/23 documented as of this encounter
--- OUTSIDE RECORDS SUMMARY | 2024-10-19 10:51 | XMS_ITS | Encounter Summary ---
Author Organization [employer] Address [address] [place] [address] Care Team Providers Care Store Operations Specialist Name Role Phone Uyen Hines MD Primary Care Provider [phone] Gee Quan MATERIAL CONTROL ASSOCIATE Unavailable [phone] Encounter Details Date Type Department Care Team (Latest Contact Info) Description 10/10/2023 Travel Social History Tobacco Use Types Packs/Day [...] Visit [facility] Gastroenterology [address] [place] [address] Christopher Mcghee MD [address] [facility] [address] [place] [address] documented as of this encounter Visit Diagnoses Not on filedocumented in this encounter Care Teams Store Operations Specialist Relationship Specialty Start Date End Date Uyen Hines MD [address] [place] [address] PCP - General Family Medicine 02/11/23 Gee Quan, MATERIAL CONTROL ASSOCIATE [address] [place] [address] Nurse Practitioner 02/24/23 documented as of this encounter
--- OUTSIDE RECORDS SUMMARY | 2024-10-19 10:51 | XMS_ITS | Encounter Summary ---
Author Organization [employer] Address [address] [place] [address] Care Team Providers Care Night Monitor Name Role Phone Uyen Hines MD Primary Care Provider [phone] Gee Quan APRN Unavailable [phone] Reason for Referral * Consultation (Routine) - Closed Specialty Diagnoses / Procedures Referred By Christopher yuan Referred To Contact Physical Therapy Diagnoses Cervicogenic headache Abnormal findings on diagnostic imaging of other parts of musculoskeletal system Cervicalgia Migraine with aura, not intractable, without status migrainosus Gee Quan APRN [address] [place] [address] Phone: tel: fax: [facility] Physical Therapy [address] [place] [address] Phone: tel: fax:[phone] Referral ID Status Reason Start Date Expiration Date V isits Requested Visits Authorized [id number] Closed Specialty Services Required 02/27/2023 06/27/2023 8 8 Encounter Details Date Type Department Care Team (Late st Contact Info) Description 02/24/2023 Outside Orders [facility] Physical Therapy [address] [place] [address] Gee Quan APRN [address] [facility] [address] [place] [address] Cervicalgia (Primary Dx) Social History Tobacco Use [...] AM EDT documented as of this encounter Plan of Treatment Upcoming Encounters Date Type Department Care Team (Late st Contact Info) Description 12/28/2024 11:00 AM EST Office Visit [facility] Gastroenterology [address] [place] [address] Christopher Mcghee MD [address] [facility] [address] [place] [address] Scheduled Referrals Name Type Priority Associated Diagnoses Orde r Schedule AMB REFERRAL TO PHYSICAL THERAPY EVALUATE, TREAT AND PLAN OF CARE Outpatient Referral Routine Cervicalgia Expected: 02/24/2023, Expires: 02/25/2024 documented as of this encounter Visit Diagnoses Diagnosis Cervicalgia- Primary documented in this encounter Care Teams Night Monitor Relationship Specialty Start Date End Date Uyen Hines MD [address] [place] [address] PCP - General Family Medicine 02/11/23 Gee Quan APRN [address] [place] [address] Nurse Practitioner 02/24/23 documented as of this encounter
--- OUTSIDE RECORDS SUMMARY | 2024-10-19 10:51 | XMS_ITS | Encounter Summary ---
Author Organization [employer] Address [address] [place] [address] Care Team Providers Care Bait Maker Name Role Phone Uyen Hines MD Primary Care Provider [phone] Gee Quan MEMORIAL COUNSELOR Unavailable [phone] Reason for Visit * Consultation (Routine) - Closed Specialty Diagnoses / Procedures Referred By Christopher yuan Referred To Contact Physical Therapy Diagnoses Cervicogenic headache Abnormal findings on diagnostic imaging of other parts of musculoskeletal system Cervicalgia Migraine with aura, not intractable, without status migrainosus Gee Quan, CAMELIA [address] [place] [address] Phone: tel: fax: [facility] Physical Therapy [address] [place] [address] Phone: tel: fax:[phone] Referral ID Status Reason Start Date Expiration Date V isits Requested Visits Authorized [id number] Closed Specialty Services Required 04/03/2023 05/03/2023 5 5 Encounter Details Date Type Department Care Team (Late st Contact Info) Description 04/07/2023 11:00 AM EDT Treatment [facility] Physical Therapy [address] [place] [address] Gee Quan APRN [address] [place] [address] Honorio Montero PTA Cervicalgia (Primary [...] Progress Notes * Honorio Montero ISIDORO - 04/07/2023 11:00 AM EDT Images from the original note were not included. Outpatient Physical Therapy Treatment Note Date of Service: 04/07/2023 Time In: 1055 Time Out: 1140 Patient name: Tessie Roa : 1980, 42 y.o. Medical Diagnosis: 1. Cervicalgia Referring Provider: Gee Quan APRN Payor: MEDICAID - MEDICAID [facility]ARE / Plan: [facility] / Product Type: *No Product type* / Visit # / Total Visits: SUBJECTIVE Pt reporting she has increased numbness within UE's upon arrival to session, stating symptoms began3-4 days ago. Pt does not remember new or increased activity that caused symptoms. Pain: 510 OBJECTIVE INTERVENTIONS Therapeutic Exercise Sets x Repetitions [...] [] [] [] [] Total Time (min): 45 ASSESSMENT Pt tolerated session well with mild to moderate difficulty noted with interventions. Pt continues to demonstrate decreased strength and stability, requiring rest breaks throughout interventions. Pt numbness symptoms monitored throughout session and pt stating no change throughout interventions. Pt stating she has follow-up Friday, but pt provided education to monitor symptoms and call prior ifsymptoms worsen. Held on further progression of interventions due to report of increased numbness upon arrival to session. Will progress pt interventions per tolerance and symptoms. PLAN Interventions: Continue Therapeutic Exercise (06229) Prognosis: Good Patient requires follow-up: Yes Total Treatment (min): 45 Timed Treatment (min): Therapeutic Exercise (85192) 45 minutes Electronically signed: Honorio Montero PTA 04/07/2023, 11:44 AM EDT documented in this encounter Plan of Treatment Upcoming Encounters Date Type Department Care Team (Late st Contact Info) Description 12/28/2024 11:00 AM EST Office Visit [facility] Gastroenterology [address] [place] [address] Christopher Mcghee MD [address] [facility] [address] [place] [address] documented as of this encounter Visit Diagnoses Diagnosis Cervicalgia- Primary documented in this encounter Care Teams Bait Maker Relationship Specialty Start Date End Date Uyen Hines MD [address] [place] [address] PCP - General Family Medicine 02/11/23 Gee Quan APRN [address] [place] [address] Nurse Practitioner 02/24/23 documented as of this encounter
--- OUTSIDE RECORDS SUMMARY | 2024-10-19 10:51 | XMS_ITS | Encounter Summary ---
Author Organization [employer] Address [address] [place] [address] Care Team Providers Care Felt Pad Cutter Name Role Phone Uyen Hines MD Primary Care Provider [phone] Gee Quan BALANCE BRIDGE INSPECTOR Unavailable [phone] Reason for Visit * Consultation (Routine) - Closed Specialty Diagnoses / Procedures Referred By Christopher yuan Referred To Contact Physical Therapy Diagnoses Cervicogenic headache Abnormal findings on diagnostic imaging of other parts of musculoskeletal system Cervicalgia Migraine with aura, not intractable, without status migrainosus Gee Quan, CAMELIA [address] [place] [address] Phone: tel: fax: [facility] Physical Therapy [address] [place] [address] Phone: tel: fax:[phone] Referral ID Status Reason Start Date Expiration Date V isits Requested Visits Authorized [id number] Closed Specialty Services Required 02/27/2023 06/27/2023 8 8 Encounter Details Date Type Department Care Team (Late st Contact Info) Description 03/18/2023 3:00 PM EDT Treatment [facility] Physical Therapy [address] [place] [address] Gee Quan, CAMELIA [address] [facility] [address] [place] [address] Kb Renae, PT Cervicalgia (Primary [...] this encounter Progress Notes * Kb Renae, ALBERTO - 03/18/2023 3:00 PM EDT Images from the original note were not included. Outpatient Physical Therapy Treatment Note Date of Service: 03/18/2023 Time In: 1449 Time Out: 1526 Patient name: Tessie Roa : 1980, 42 y.o. Medical Diagnosis: 1. Cervicalgia Referring Provider: Gee Quan APRN Payor: MEDICAID - MEDICAID [facility] CARE / Plan: [facility] / Product Type: *No Product type* / Visit # / Total Visits: SUBJECTIVE Patient states she had upper trap soreness for 12 hours after last treatment session. She states she did not have adverse effects after dry needling. Pain: 04/02 OBJECTIVE INTERVENTIONS Therapeutic Exercise Sets x Repetitions Weight/Resistance Cues/Comments HEP pulleys 3'/3' Flexion/abduction [] UBE 3'/3' Fwd/retro [] Cervical extension with overpressure 2' [] Cervical rotation with overpressure 2' [] Chin tucks x30 [] Lateral raises x30 RTB [] Upright row x30 RTB [] Shrugs x30 2lbs [] T-band Series x30 red Ext, rows [] [] [] [] [] [] [] [] [] [] [] [] Total Time (min): 30 Dry Needling- Suboccipitals bilaterally, cervical paraspinals bilaterally, and bilateral upper traps. ASSESSMENT Patient tolerated all interventions well. Shrugs were reduced in resistance today to reduce soreness of upper traps after today's session. Patient also had dry needling to upper traps today without adverse effects. Patient states that she is still having headaches at base of occiput, but has had reduced severity. Will continue to progress interventions as she is able. PLAN Interventions: Continue Therapeutic Exercise (32313) and Needle Insertion 3 or more Muscles () Prognosis: Good Patient requires follow-up: Yes Total Treatment (min): 38 Timed Treatment (min): Therapeutic Exercise (55058) 30 minutes Needle Insertion 3 or more Muscles () Electronically signed: Kb Renae, PT 03/18/2023, 2:56 PM EDT documented in this encounter Plan of Treatment Upcoming Encounters Date Type Department Care Team (Late st Contact Info) Description 12/28/2024 11:00 AM EST Office Visit [facility] Gastroenterology [address] [place] [address] Christopher Mcghee MD 227 [facility] [address] [place] [address] documented as of this encounter Visit Diagnoses Diagnosis Cervicalgia- Primary documented in this encounter Care Teams Felt Pad Cutter Relationship Specialty Start Date End Date Uyen Hines MD [address] [place] [address] PCP - General Family Medicine 02/11/23 Gee Quan APRN [address] [place] [address] Nurse Practitioner 02/24/23 documented as of this encounter
--- OUTSIDE RECORDS SUMMARY | 2024-10-19 10:51 | XMS_ITS | Encounter Summary ---
Author Organization [employer] Address [address] [place] [address] Care Team Providers Care Surveyor Helper Name Role Phone Uyen Hines MD Primary Care Provider [phone] Gee Quan DRY CLEANING MANAGER Unavailable [phone] Reason for Visit * Reason Comments Dysphagia Pt states that she h as been having trouble swallowing she is currently unable to swallow any whole foods or oatmeal. She has only been able to swallow liquids and puree foods. She is only able to take 1 medication at a time and they get stuck so she is having to crush them and put them in applesauce. She feels like she is having bad chest pains at time and she can tell that it is affecting her voice the worse it gets. Encounter Details Date Type Department Care Team (Late st Contact Info) Description 09/15/2023 11:15 AM EDT Office Visit [facility] Gastroenterology [address] [place] [phone] Josefina Ziegler PA-C Eosinophilic esophagitis (Primary Dx); Esophageal dysphagia; Diarrhea, unspecified type; Generalized abdominal pain Social History Tobacco Use Types Packs/Day Years [...] AM EDT documented as of this encounter Last Filed Vital Signs Vital Sign Reading Time Taken Comments Blood Pressure 135/83 09/15/2023 10:47 AM EDT Pulse 80 09/15/2023 10:47 AM EDT Temperature - - Respiratory Rate - - Oxygen Saturation 96% 09/15/2023 10: 47 AM EDT Inhaled Oxygen Concentration - - Weight 109.6 kg (241 lb 9.6 oz) 023 10:47 AM EDT Height 162.6 cm (5' 4 ) 09/15/2023 10:4 7 AM EDT Body Mass Index 41.47 09/15/2023 10:47 AM EDT documented in this encounter Progress Notes * Josefina Ziegler PA-C - 09/15/2023 11:15 AM EDT Gastroenterology Follow up Subjective: Chief Complaint Patient presents with ??? Dysphagia Pt states that she has been having trouble swallowing she is currently unable to swallow any whole foods or oatmeal. She has only been able to swallow liquids and puree foods. She is only able to take 1 medication at a time and they get stuck so she is having to crush them and put them in applesauce. She feels like she is having bad chest pains at time and she can tell that it is affecting her voice the worse it gets. Tessie Roa is a 43 y.o. female. Seen today in follow-up of EOE. Underwent EGD with dilatation to 15 mm February 2023. This also showed mucosal changes consistent with EOE as well as a small hiatal hernia. Biopsy of the distal esophagus showed up to 5 eosinophils per high-powered field and biopsies of the midesophagus showed eosinophils up to 17. This has improved from her previous EGD in 2018 which showed greater than 35 eosinophils per high-powered field. She has been taking pantoprazole 40 mg twice daily as well as Flovent HFA inhaler, swallowed. Unfortunately has been out of Flovent for some time. Since last office visit she did undergo barium swallow which showed minimal esophageal dysmotility. She has been having more issues with dysphagia as well as chest pains. Was seen by herprimary care provider who thought this is related to her esophagitis. We have started process for PA of Dupixent and this is still pending approval. She also has a long history of diarrhea. Has had stool studies for enteric pathogens which were normal. Stool for white blood cells and inflammatory proteins all negative. She does have an elevated ESR and CRP. Her IBD serology was negative. Unfortunately was unable to swallow PillCam. We did orderMRI enterography which insurance denied. Allergies: No Known Allergies Medications: Current Outpatient Medications: ??? ALPRAZolam (XANAX) 1 MG tablet, Take [...] (two) times daily., Disp: , Rfl: ??? TiZANidine (ZANAFLEX) 4 MG capsule, Take 1 capsule (4 mg total) by mouth 3 (three) times daily., Disp: , Rfl: ??? ubrogepant 100 mg Tab, Take by mouth., Disp: , Rfl: ??? acetaminophen (TYLENOL ARTHRITIS ORAL), Take by mouth., Disp: , Rfl: ??? acetaminophen (TYLENOL) 500 MG tablet, Take 1 tablet (500 mg total) by mouth every 6 (six) hours as needed for Pain., Disp: , Rfl: ??? fluticasone propionate (Flovent HFA) 220 mcg/actuation inhaler, Inhale 2 puffs by mouth via inhaler 2 (two) times daily for 30 days., Disp: 19680 mcg, Rfl: 5 History: Past Medical History: Diagnosis Date ??? [...] BALLOON DILATION; Surgeon: Christopher Mcghee MD; Location: [facility]; Service: Gastroenterology; Laterality: N/A; Family History Problem Relation Age of Onset ??? Heart disease Father ??? Colon cancer Maternal Grandmother Social History Tobacco Use ??? Smoking status: Never ??? Smokeless tobacco: Never Substance Use Topics ??? Alcohol use: Never Review of Systems: Review of Systems Constitutional: Negative. HENT: Negative. Eyes: Negative. Respiratory: Negative. Cardiovascular: Negative. Gastrointestinal: See HPI Genitourinary: Negative. Musculoskeletal: Negative. Skin: Negative. Neurological: Negative. Endo/Heme/Allergies: Negative. Psychiatric/Behavioral: Negative. Objective: BP 135/83 (BP Location: Left arm, Patient Position: Sitting, Cuff Size: Adult Long) Pulse 80 Ht1.626 m (5' 4 ) Wt 109.6 kg (241 lb 9.6 oz) SpO2 96% BMI 41.47 kg/m?? Physical Exam Vitals and nursing note reviewed. Constitutional: General: She is not in acute distress. Appearance: Normal appearance. She is not ill-appearing. HENT: Head: Normocephalic and atraumatic. Nose: Nose normal. Mouth/Throat: Mouth: Mucous membranes are moist. Pharynx: Oropharynx is clear. Eyes: General: No scleral icterus. Conjunctiva/sclera: Conjunctivae normal. Cardiovascular: Rate and Rhythm: Normal rate and regular rhythm. Heart sounds: No murmur heard. Pulmonary: Effort: Pulmonary effort is normal. Breath sounds: Normal breath sounds. Abdominal: General: Bowel sounds are normal. There is no distension. Palpations: Abdomen is soft. Tenderness: There is no abdominal tenderness. Musculoskeletal: Cervical back: Neck supple. Right lower leg: No edema. Left lower leg: No edema. Lymphadenopathy: Cervical: No cervical adenopathy. Skin: General: Skin is warm and dry. Neurological: General: No focal deficit present. Mental Status: She is alert and oriented to person, place, and time. Psychiatric: Mood and Affect: Mood normal. Behavior: Behavior normal. Judgment: Judgment normal. Assessment: 1. Eosinophilic esophagitis 2. Esophageal dysphagia Plan: Refill flovent. Will check on mri to see if any possibility of getting this approved Will check on dupixent. Further recommendations to follow No orders of the defined types were placed in this encounter. Requested Prescriptions Signed Prescriptions Disp Refills ??? fluticasone propionate (Flovent HFA) 220 mcg/actuation inhaler 75998 mcg 5 Sig: Inhale 2 puffs by mouth via inhaler 2 (two) times daily for 30 days. No follow-ups on file. Patient instructions given. . documented in this encounter Plan of Treatment Upcoming Encounters Date Type Department Care Team (Late st Contact Info) Description 12/28/2024 11:00 AM EST Office Visit [facility] Gastroenterology [address] [place] [phone] Christopher Mcghee MD [address] [facility] [address] [place] [address] documented as of this encounter Visit Diagnoses Diagnosis Eosinophilic esophagitis- Primary Esophageal dysphagia Dysphagia, pharyngoesophageal phase Diarrhea, unspecified type Generalized abdominal pain Abdominal pain, generalized documented in this encounter Care Teams Surveyor Helper Relationship Specialty Start Date End Date Uyen Hines MD [address] [place], [place] [address], [place] [address] PCP - General Family Medicine 02/11/23 Gee Quan APRN [address] [place] [phone] Nurse Practitioner 02/24/23 documented as of this encounter
--- OUTSIDE RECORDS SUMMARY | 2024-10-19 10:51 | XMS_ITS | Encounter Summary ---
Author Organization [employer] Address [address] [place] [address] Care Team Providers Care Tie Bucker Name Role Phone Uyen Hines MD Primary Care Provider [phone] Gee Quan LICENSED CLINICAL SOCIAL WORKER Unavailable [phone] Reason for Visit * Reason Onset Date Comments Results 12/17/2023 Encounter Details Date Type Department Care Team (Late st Contact Info) Description 12/17/2023 Telephone [facility] Gastroenterology [address] [place] [phone] Danya Marcus APRN Results Social History [...] Date Ralf rded Speak language other than Spanish at home Not on file 12/11/2023 Want [...] encounter Miscellaneous Notes * Telephone Encounter - Clementina Murray - 12/17/2023 10:57 AM EST This patient called and was wanting to know if her results have come back yet and would like for someone to give her a call N MATERIAL VALUE ADDED ASSESSOR documented in this encounter Plan of Treatment Upcoming Encounters Date Type Department Care Team (Late st Contact Info) Description 12/28/2024 11:00 AM EST Office Visit [facility] Gastroenterology [address] [place] [address] Christopher Mcghee MD [address] [facility] [address] [place] [address] documented as of this encounter Visit Diagnoses Not on filedocumented in this encounter Care Teams Tie Bucker Relationship Specialty Start Date End Date Uyen Hines MD [address] [place] [address] PCP - General Family Medicine 02/11/23 Gee Quan APRN [address] [place] [address] Nurse Practitioner 02/24/23 documented as of this encounter
--- OUTSIDE RECORDS SUMMARY | 2024-10-19 10:51 | XMS_ITS | Encounter Summary ---
Author Organization [employer] Address [address] [facility] [place] [address] Care Team Providers Care Stock Sheets Cleaner Inspector Name Role Phone Uyen Hines MD Primary Care Provider [phone] Gee Quan CASH APPLICATIONS COORDINATOR Unavailable [phone] Reason for Referral * Ultrasound (Routine) - Closed Specialty Diagnoses / Procedures Referred By Christopher yuan Referred To Contact Radiology Diagnoses Generalized abdominal pain Diarrhea, unspecified type Eosinophilic esophagitis Esophageal dysphagia Procedures US abdomen limited Josefina Ziegler PA-C [facility] Ultrasound [address] [place] [address] Phone: tel: fax: Referral ID Status Reason Start Date Expiration Date Visits Re quested Visits Authorized [id number] Closed 09/19/2023 03/17/2024 1 1 Encounter Details Date Type Department Care Team (Late st Contact Info) Description 09/19/2023 Orders Only [facility] Gastroenterology [address] [place] [address] Josefina Ziegler PA-C Generalized abdominal pain (Primary Dx); Diarrhea, unspecified type; Eosinophilic esophagitis; Esophageal dysphagia Social History Tobacco Use Types Packs/Day Years [...] [facility] Gastroenterology [address] [place] [address] Christopher Mcghee MD [address] [place] [address] documented as of this encounter Results * US abdomen limited [...] Julia Dubose. Transcribed by Erendira Casanova PA-C. Josefina Ziegler PA-C IMG US ORDERABLES Final Resul t documented in this encounter Visit Diagnoses Diagnosis Generalized abdominal pain- Primary Abdominal pain, generalized Diarrhea, unspecified type Eosinophilic esophagitis Esophageal dysphagia Dysphagia, pharyngoesophageal phase Generalized abdominal pain Abdominal pain, generalized Diarrhea, unspecified type Eosinophilic esophagitis Esophageal dysphagia Dysphagia, pharyngoesophageal phase documented in this encounter Care Teams Stock Sheets Cleaner Inspector Relationship Specialty Start Date End Date Uyen Hines MD [address] [place] [phone] PCP - General Family Medicine 02/11/23 Gee Quan, CASH APPLICATIONS COORDINATOR [address] [place] [phone] Nurse Practitioner 02/24/23 documented as of this encounter
--- OUTSIDE RECORDS SUMMARY | 2024-10-19 10:51 | XMS_ITS | Encounter Summary ---
Author Organization [employer] Address [address] [facility] [address] Care Team Providers Care Railroad Construction Director Name Role Phone Uyen Hines MD Primary Care Provider [phone] Gee Quan TRACK MANAGER Unavailable Reason for Visit * Auth/Cert Specialty Diagnoses / Procedures Referred By Christopher yuan Referred To Contact Diagnoses Esophageal dysphagia Eosinophilic esophagitis Esophageal dysphagia,Eosinophilic esophagitis Procedures SD ESOPHAGOGASTRODUODENOSCOPY TRANSORAL DIAGNOSTIC SD EGD TRANSORAL BIOPSY SINGLE/MULTIPLE SD EGD BALLOON DILATION ESOPHAGUS <30 MM DIAM SD EGD REMOVAL TUMOR POLYP/OTHER LESION SNARE TECH EGD (ESOPHAGOGASTRODUODENOSCOPY) [facility] Endoscopy [address] [place] [address] Phone: tel: fax: [facility] Endoscopy [address] [place] [address] Phone: tel: fax: Referral ID Status Reason Start Date Expiration Date Visits Re quested Visits Authorized [id number] 1 1 Encounter Details Date Type Department Care Team (Late st Contact Info) Description 02/24/2023 12:22 PM EDT Anesthesia Event [facility] Endoscopy [address] [place] [address] Corinna Mcdaniels CRNA [address] [place] [address] Daniel Arizmendi MD [address] [place] [address] Anesthesia Record Procedure Summary Procedure Name Responsible Anesthesiologist Anesthesia Start Time Anesthesia Stop Time EGD, WITH BALLOON DILATION Corinna Bandar Mcdaniels CRNA 02/24/23 1222 02/24/23 1245 Events Date Time Event Comment 02/24/2023 1209 1222 An Start Patient identif ied and chart reviewed. 1222 An Start Data Anesthesia mac leigh and monitors checked. 1226 Quick Note 1232 Anesthesia Ready 1240 an stop data 1243 Handoff to Receiving I compl eted my handoff to the receiving clinician during which we: 1. Identified the patient. 2. Identified the responsible provider. 3. Reviewed the pertinent medical history. 4. Discussed the surgical course. 5. Reviewed intra-op anesthesia management and issues during anesthesia. 6. Set expectations for post-procedure period. 7. Allowed opportunity for questions and acknowledgement of understanding. 1245 An Stop Meds Name Total fentaNYL (SUBLIMAZE) injection 100 mcg propofol (DIPRIVAN) injection 10 mg/mL b olus 90 mg propofol (DIPRIVAN) infusion 10 mg/mL 14 4 mg lidocaine (XYLOCAINE) injection 2% 100 m g ondansetron (ZOFRAN) injection 4 mg lactated ringers (LR) infusion 400 mL * Agents Name O2 N2O Air * Blood No blood administrations on file. Lines, Drains, and Airways Type Details Placement Removal Peripheral IV Placement Date: 02/13; Placement Time: 1150; Size: 20 G; Orientation: Right; Location: Antecubital; Site Prep: Alcohol; Inserted by: Bart LAU; Insertion attempts: 1; Securement Method: Taped; Removal Date: 02/24/23; Removal Time: 1306 02/24/23 1150 by Eliseo Brody RN 02/24/23 1306 by Ofelia Lucas RN documented in this [...] AM EDT documented as of this encounter OR Notes * Anesthesia Postprocedure Evaluation - Corinna Mcdaniels CRNA - 02/24/2023 12:44 PM EDT Patient: Tessie Roa Procedure Summary Date: 02/24/23 Room / Location: [facility] ENDO 01 / [facility] Anesthesia Start: 1222 Anesthesia Stop: Procedure: EGD, WITH BALLOON DILATION Diagnosis: Esophageal dysphagia Eosinophilic esophagitis (Esophageal dysphagia,Eosinophilic esophagitis) Surgeons: Christopher Mcghee MD Responsible Provider: Corinna Mcdaniels CRNA Anesthesia Type: general ASA Status: 3 Anesthesia Type: general Vitals Value Taken Time BP 103/58 02/24/23 1244 Temp 98.2 02/24/23 1244 Pulse 71 02/24/23 1244 Resp 16 02/24/23 1244 SpO2 99 02/24/23 1244 Ht 1.626 m (5' 4 ) Wt 113.9 kg (251 lb) BMI 43.08 kg/m?? Anesthesia Post Evaluation Patient location during evaluation: bedside Patient participation: complete - patient participated Level of consciousness: awake Pain score: 0 Pain management: adequate Multimodal analgesia pain management approach Airway patency: patent Cardiovascular status: stable Respiratory status: nasal cannula and spontaneous ventilation Hydration status: stable Color: [place] Activity: Moves 4 extremities Inotropes/Vasopressors: N/A No notable events documented. Corinna Mcdaniels CRNA 02/24/2023 12:44 PM EDT * Anesthesia Preprocedure Evaluation - Daniel Arizmendi MD - 02/24/2023 12:07 PM EDT Anesthesia Pre Evaluation Ms. Tessie Roa is a 42 y.o. female being evaluated for the following: Date/Time: 02/24/23 1230 Procedure: EGD (ESOPHAGOGASTRODUODENOSCOPY) Location: [facility] / [facility] Surgeons: Christopher Mcghee MD Relevant Problems CARDIOVASCULAR (+) Hypertension ENDOCRINE (+) Hypothyroid /RENAL (+) CKD (chronic kidney disease), stage III (HCC) NEURO/PSYCH (+) Anxiety (+) Depression (+) Migraines (+) Stroke (cerebrum) (HCC) Digestive (+) Eosinophilic esophagitis Clinical information reviewed: Allergies Meds Med Hx Current Outpatient Medications Medication Instructions ??? acetaminophen (TYLENOL ARTHRITIS ORAL) Oral ??? acetaminophen (TYLENOL) 500 mg, Oral, Every 6 hours PRN ??? ALPRAZolam (XANAX) 1 mg, Oral, 3 times daily PRN ??? aspirin 81 mg, Oral, Daily ??? busPIRone (BUSPAR) 7.5 MG tablet Oral ??? carvediloL (COREG) 6.25 mg, Oral, 2 times daily with breakfast and dinner ??? escitalopram oxalate (LEXAPRO) 20 mg, Oral ??? fluticasone propionate (Flovent HFA) 220 mcg/actuation inhaler 2 puffs, Inhalation ??? levothyroxine (SYNTHROID, LEVOTHROID) 200 mcg, Oral ??? lisinopriL (PRINIVIL,ZESTRIL) 10 mg, Oral, Daily ??? pantoprazole (PROTONIX) 40 mg, Oral, 2 times daily ??? TiZANidine (ZANAFLEX) 4 mg, Oral, 3 times daily ??? ubrogepant 100 mg Tab Oral No Known Allergies Tobacco Use: Low Risk ??? Smoking Tobacco Use: Never ??? Smokeless Tobacco Use: Never ??? Passive Exposure: Not on file Past Surgical History: Procedure Laterality Date ??? SECTION ??? CHOLECYSTECTOMY ??? COLONOSCOPY 2021 ??? HYSTERECTOMY ??? SHOULDER SURGERY Left x2 ??? TUBAL LIGATION NPO Status Date of last liquid: 02/23/23 Time of last liquid: 1899 Date of last solid: 02/23/23 Time of last solid: 1899 Physical Exam Airway Mallampati: II TM distance: >3 FB Neck ROM: full Cardiovascular - normal exam Rhythm: regular Rate: normal Dental (+) edentulous Pulmonary - normal exam Breath sounds clear to auscultation Abdominal - normal exam Anesthesia Plan ASA 3 Planned anesthetic: general (Propofol TIVA) Anesthesia Plan Factors- The patient is not a current smoker. Education provided regarding risk of obstructive sleep apnea. Induction: intravenous Informed Consent- Anesthetic plan and risks discussed with patient. Blood Consent- Use of blood products discussed with patient who consented to blood products. Plan discussed with IN SHOP SERVICE TECHNICIAN. documented in this encounter Plan of Treatment Upcoming Encounters Date Type Department Care Team (Late st Contact Info) Description 12/28/2024 11:00 AM EST Office Visit [facility] Gastroenterology [address] [place] [address] Christopher Mcghee MD [address] [place] [address] documented as of this encounter Visit Diagnoses Not on filedocumented in this encounter Administered Medications Inactive Administered Medications - up to 3 most recent administrations Medication Order MAR Action Action Date Dose Rate Site fentaNYL (SUBLIMAZE) injection As needed, intravenous, Starting on Fri02/24/23 at 1227, Anesthesia Intra-op Given 02/24/2023 12:29 PM EDT 50 mcg Given 02/24/2023 12:27 PM EDT 50 mcg lactated ringers (LR) infusion Continuous, intravenous, at 30 mL/hr, Starting on Fri02/24/23 at 1230, Pre-op Rate/Dose Change 02/24/2023 12:27 PM EDT 100 mL/hr Continued by Anesthesia 02/24/2023 12:22 PM EDT 30 mL/hr New Bag 02/24/2023 11:51 AM EDT 30 mL/hr lidocaine (XYLOCAINE) injection 2% As needed, intravenous, Starting on Fri02/24/23 at 1227, Anesthesia Intra-op Given 02/24/2023 12:27 PM EDT 100 mg ondansetron PF (ZOFRAN) injection As needed, intravenous, Starting on Fri02/24/23 at 1239, Anesthesia Intra-op Given 02/24/2023 12:39 PM EDT 4 mg propofol (DIPRIVAN) injection 10 mg/mL bolus As needed, intravenous, Starting on Fri02/24/23 at 1227, Anesthesia Intra-op Given 02/24/2023 12:29 PM EDT 40 mg Given 02/24/2023 12:27 PM EDT 50 mg propofol (DIPRIVAN) injection 10 mg/mL Continuous PRN, intravenous, Starting on Fri02/24/23 at 1227, Anesthesia Intra-op New Bag 02/24/2023 12:27 PM EDT 180 mcg/kg/min 108 mL/hr documented in this encounter Care Teams Railroad Construction Director Relationship Specialty Start Date End Date Uyen Hines MD [address] [place] [phone] PCP - General Family Medicine 02/11/23 Gee Quan, CAMELIA [address] [place] [address] Nurse Practitioner 02/24/23 documented as of this encounter
--- OUTSIDE RECORDS SUMMARY | 2024-10-19 10:51 | XMS_ITS | Encounter Summary ---
Author Organization [employer] Address [address] [place] [address] Care Team Providers Care Cylinder Die Machine Operator Name Role Phone Uyen Hines MD Primary Care Provider [phone] Gee Quan SYSTEMS PROGRAMMER ANALYST Unavailable [phone] Reason for Referral * Flouroscopy (Routine) - Closed Specialty Diagnoses / Procedures Referred By Christopher yuan Referred To Contact Diagnoses Esophageal dysphagia Eosinophilic esophagitis Diarrhea, unspecified type Generalized abdominal pain Procedures FL ESOPHAGRAM BARIUM Josefina Ziegler PA-C Referral ID Status Reason Start Date Expiration Date Visits Re quested Visits Authorized [id number] Closed 08/04/2023 01/31/2024 1 1 Reason for Visit * Reason Comments Follow-up Patient still having issues with acid reflux and swallowing issues. States medication is not helping Encounter Details Date Type Department Care Team (Late st Contact Info) Description 08/04/2023 3:00 PM EDT Office Visit [facility] Gastroenterology [address] [place] [address] Josefina Ziegler PA-C Esophageal dysphagia (Primary Dx); Eosinophilic esophagitis; Diarrhea, unspecified type; Generalized abdominal pain Social [...] Sign Reading Time Taken Comments Blood Pressure 133/86 08/04/2023 2:34 PM EDT Pulse 78 08/04/2023 2:34 PM EDT Temperature - - Respiratory Rate - - Oxygen Saturation 96% 08/04/2023 2:34 PM EDT Inhaled Oxygen Concentration - - Weight 110.2 kg (243 lb) 08/04/2023 2:34 PM EDT Height 162.6 cm (5' 4 ) 08/04/2023 2:34 PM EDT Body Mass Index 41.71 08/04/2023 2:34 PM EDT documented in this encounter Progress Notes * Josefina Ziegler PA-C - 08/04/2023 3:00 PM EDT Gastroenterology Follow up Subjective: Chief Complaint Patient presents with ??? Follow-up Patient still having issues with acid reflux and swallowing issues. States medication is not helping Tessie Roa is a 43 y.o. female. Seen today in follow-up of eosinophilic esophagitis. Underwent EGD with dilatation to 15 mm February 2023. This also showed mucosal changes consistent with EOE as well as a small hiatal hernia. Biopsy of the distal esophagus showed up to 5 eosinophils per high-powered field and biopsies of the midesophagus showed eosinophils up to 17. This has improved from her previous EGD in 2018 which showed greater than 35 eosinophils per high- powered field. She has been taking pantoprazole 40 mg twice daily as well as Flovent HFA inhaler, swallowed. She states she continues to have dysphagia and has not noticed any benefit since dilatation in February. Has had to change her diet. There has been 8 pound weight loss since last office visit. Has not had food impaction. Denies cough or hoarseness. No nausea or vomiting. She also has a long history of diarrhea. Has had stool studies for enteric pathogens which were normal. Stool for white blood cells and inflammatory proteins all negative. She does have an elevated ESR and CRP. Her IBD serology was negative. We had previously discussed changing treatment to dupixent. Pt is interested in this option. Allergies: No Known Allergies Medications: Current Outpatient [...] BALLOON DILATION; Surgeon: Christopher Mcghee MD; [facility]; Service: Gastroenterology; Laterality: N/A; Family [...] Negative. Endo/Heme/Allergies: Negative. Psychiatric/Behavioral: Negative. Objective: BP 133/86 (BP Location: Left arm, Patient Position: Sitting, Cuff Size: Adult) Pulse 78 Ht 1.626 m (5' 4 ) Wt 110.2 kg (243 lb) SpO2 96% BMI 41.71 kg/m?? Physical Exam Vitals and nursing note [...] Behavior normal. Judgment: Judgment normal. Assessment: 1. Esophageal dysphagia 2. Eosinophilic esophagitis 3. Diarrhea, unspecified type 4. Generalized abdominal pain Plan: 1. Barium swallow both liquid and barium tab 2. MRI enterography as patient is unable to swallow PillCam for further evaluation of the small bowel 3. We did again discuss changing therapy to Dupixent the patient is interested in this. We will await above results before proceeding 4. Further recommendations to follow Orders Placed This Encounter Procedures ??? FL ESOPHAGRAM BARIUM ? ? MR enterography - MR abd/pelvis without & with IV contrast Requested Prescriptions No prescriptions requested or ordered in this encounter No follow-ups on file. Patient instructions given. . documented in this encounter Plan of Treatment Upcoming Encounters Date Type Department Care Team (Late st Contact Info) Description 12/28/2024 11:00 AM EST Office Visit [facility] Gastroenterology [address] [place] [address] Christopher Mcghee MD [address] [facility] [address] [place] [address] documented as of this encounter Results * FL ESOPHAGRAM BARIUM [...] by Juan Cullen PA-C. Josefina Ziegler PA-C [facility] FLUOROSCOPY ORDERABLES Fi nal Result documented in this encounter Visit Diagnoses Diagnosis Esophageal dysphagia- Primary Dysphagia, pharyngoesophageal phase Eosinophilic esophagitis Diarrhea, unspecified type Generalized abdominal pain Abdominal pain, generalized Esophageal dysphagia Dysphagia, pharyngoesophageal phase Eosinophilic esophagitis Diarrhea, unspecified type Generalized abdominal pain Abdominal pain, generalized documented in this encounter Care Teams Cylinder Die Machine Operator Relationship Specialty Start Date End Date Uyen Hines MD [address] [place] [address] PCP - General Family Medicine 02/11/23 Gee Quan APRN [address] [place] [address] Nurse Practitioner 02/24/23 documented as of this encounter
--- OUTSIDE RECORDS SUMMARY | 2024-10-19 10:51 | XMS_ITS | Encounter Summary ---
Author Organization [employer] Address [address] [place] [address] Care Team Providers Care Floor Associate Name Role Phone Uyen Hines MD Primary Care Provider [phone] Gee Quan DIRECTOR OF KIDS Unavailable [phone] Reason for Visit * Consultation (Routine) - Closed Specialty Diagnoses / Procedures Referred By Christopher yuan Referred To Contact Physical Therapy Diagnoses Cervicogenic headache Abnormal findings on diagnostic imaging of other parts of musculoskeletal system Cervicalgia Migraine with aura, not intractable, without status migrainosus Gee Quan, CAMELIA [address] [place] [address] Phone: tel: fax: [facility] Physical Therapy [address] [place] [address] Phone: tel: fax:[phone] Referral ID Status Reason Start Date Expiration Date V isits Requested Visits Authorized [id number] Closed Specialty Services Required 04/03/2023 05/03/2023 5 5 Encounter Details Date Type Department Care Team (Late st Contact Info) Description 04/22/2023 11:00 AM EDT Treatment [facility] Physical Therapy [address] [place] [address] Gee Quan, CAMELIA [address] [facility] [address] [place] [address] Kb Renae, PT Cervicalgia (Primary [...] Progress Notes * Kb Renae, PT - 04/22/2023 11:00 AM EDT Images from the original note were not included. Outpatient Therapy Services Physical Therapy Re-Evaluation Date of Service: 04/22/2023 Time In: 1050 Time Out: 1134 Patient name: Tessie Roa : 1980, 42 y.o. Medical Diagnosis: 1. Cervicalgia Referring Provider: Gee Quan APRN Payor: MEDICAID - MEDICAID [facility] CARE / Plan: [facility] / Product Type: *No Product type* / Date of Onset: 02/21/2023 Visit # [...] BALLOON DILATION; Surgeon: Christopher Mcghee MD; Location: [facility]; Service: Gastroenterology; Laterality: N/A; Current [...] No Known Allergies Contraindications/Precautions:None Previous Physical Therapy:Has been receiving physical therapy, but recently had a stroke and needs a re-evaluation to determine if plan of care needs to change. Prior Functional Status: Independent with ADL, no AD. Disabled. Personal Information Personal Information Marital Status: Resides with: Spouse Signs of Abuse: No Hand Dominance: Right Work Status: Unemployed SUBJECTIVE Patient states she had a stroke on 04/13/2023. She was taken immediately to the hospital and received TPA. Patient states she has noticed weakness or difficulty with speech since medication. Pain Current: 10 Least: 10 Worst: 09/02 Description: Aching and Sharp Aggravating factors: Movement Relieving factors: Rest OBJECTIVE There were no vitals taken for this visit. Test/Measurements Cervical ROM Degrees Flexion 44 Extension 52 Left Sidebend 35 Right Sidebend 45 Left Rotation 60 Right Rotation 65 Shoulder ROM (degrees) LEFT Flexion 143 Abduction 90 Internal Rotation PSIS External Rotation 70 Strength Shoulder/Scapula LEFT RIGHT Flexion 4-/5 4+/5 Abduction 4-/5 4+/5 External Rotation 4-/5 4+/5 Internal Rotation 4-/5 4+/5 Switchboard Operator Receptionist strength 35lbs Cervical/Thoracic Special Tests Compression No change in symptoms Vertebral Artery Bilateral - Functional Outcome Measure: NDI= 42% INTERVENTIONS Therapeutic Exercise Sets x Repetitions Weight/Resistance Cues/Comments HEP pulleys 3'/3' Flexion/abduction [] UBE 3'/3' Fwd/retro [] Cervical extension with towel overpressure 2' Held today [] Cervical rotation with towel overpressure 2' Held today [] Chin tucks x30 [] Upright row x30 RTB [] Shrugs x30 2lbs Held today [] T-band Series x30 green Ext, rows [] Thoracic extension over chair 2' [] Digiflex- L 2' Red Held today [] Seated ulnar glides 2' 90-90 with wrist flexion/extension, R arm holding shoulder Held today [] Scaption Raises x30 2lbs [] Lateral raises x30 2lbs [] [] [] [] [] [] [] Total Time (min): 30 Total Treatment (min): 44 Timed Code Treatment (min): Therapeutic Exercise (00970) 30 minutes ASSESSMENT Patient is a 42 year old female who has been actively coming to therapy for neck and shoulder pain.Patient had a recent stroke that needed re-evaluation. Patient has maintained PLOF for the most part. She has had slight regression in some cervical ranges of motion and increasing mobility in other areas. Vascular tests were performed to see if they elicited stroke like symptoms. Patient states all testing was negative. Patient was educated on letting therapist know if she is expericing symptomsthat she felt the day of the stroke. Patient has follow up soon for MRI and and more medical testing post-stroke. At this time patient states she is feeling better with neck and shoulder pain than she was before the stroke. Patient's goals are appropriate and plan of care does not need to be altered at this time. Patient will continue to benefit from management by a physical therapist to meet stated goals. Overall rehab potential is Fair. The patient [...] the below stated problems/goals, using Therapeutic Exercise (19750), Therapeutic Activity (17889), Manual Therapy (11980), Neuromuscular Re-education (81530), Pt/CG Education, Needle Insertion 3 or more Muscles (92126) and Canolith Repositioning Per Day (51440). Skilled intervention required to decrease pain, increase range of motion, increase strength, improve balance, improve cardiovascular endurance, improve functional mobility, learn home exercise program and return to premorbid state. Prognosis: Fair Problems: Pain Decreased ROM Decreased strength Decreased functional mobility Patient Goal: Decreased Pain Improve Mobility Improve Strength Resume ADL's w/o Symptoms Return to Prior Activity Level Learn Home Exercise Program Patient Education: Eval results/Plan of Care and HEP Correction Goals: 1. Patient will score a 30% on NDI in 12 weeks in order to demonstrate a clinically significant improvement in subjective function for activities such as lying flat in bed to sleep. (Patient scores a42% today. Not Met, Progressing) 2. Patient will increase inspector agricultural commodities strength to 60lbs in 12 weeks to allow the patient to carry her groceries without dropping. (Patient has 35lbs of inspector agricultural commodities strength today. Not Met, No Change) 3. Patient will report of pain <3/10 in 12 weeks which will allow her to complete household ADL without rest breaks. (Patient has 4/10 pain today. Not Met, Progressing.) 4. Patient will be independent with discharge home exercise program to improve self-care ADL's. Plan of Care Certification Date: 02/27/2023 - 05/29/2023 Frequency/Duration: 2x/Week for 12 weeks Electronically signed by: Kb Renae, PT 04/22/2023, 10:56 AM EDT I certify that these services are medically necessary and are furnished under this plan of treatment, while patient remains under my care. Signature of Physician Date & Time documented in this encounter Plan of Treatment Upcoming Encounters Date Type Department Care Team (Late st Contact Info) Description 12/28/2024 11:00 AM EST Office Visit [facility] Gastroenterology [address] [place] [address] Christopher Mcghee MD [address] [facility] [address] [place] [address] documented as of this encounter Visit Diagnoses Diagnosis Cervicalgia- Primary documented in this encounter Care Teams Floor Associate Relationship Specialty Start Date End Date Uyen Hines MD [address] [place] [address] PCP - General Family Medicine 02/11/23 Gee Quan APRN [address] [place] [address] Nurse Practitioner 02/24/23 documented as of this encounter
--- OUTSIDE RECORDS SUMMARY | 2024-10-19 10:51 | XMS_ITS | Encounter Summary ---
Author Organization [employer] Address [address] [place] [address] Care Team Providers Care Retail Merchandising Specialist Name Role Phone Uyen Hines MD Primary Care Provider [phone] Gee Quan SUPERVISOR FIREWORKS ASSEMBLY Unavailable [phone] Reason for Visit * Consultation (Routine) - Closed Specialty Diagnoses / Procedures Referred By Christopher yuan Referred To Contact Physical Therapy Diagnoses Cervicogenic headache Abnormal findings on diagnostic imaging of other parts of musculoskeletal system Cervicalgia Migraine with aura, not intractable, without status migrainosus Gee Quan, CAMELIA [address] [place] [address] Phone: tel: fax: [facility] Physical Therapy [address] [place] [address] Phone: tel: fax:[phone] Referral ID Status Reason Start Date Expiration Date V isits Requested Visits Authorized [id number] Closed Specialty Services Required 02/27/2023 06/27/2023 8 8 Encounter Details Date Type Department Care Team (Late st Contact Info) Description 03/25/2023 11:00 AM EDT Treatment [facility] Physical Therapy [address] [place] [address] Gee Quan APRN [address] [facility] [address] [place] [address] Cervicalgia (Primary Dx) Social History Tobacco Use [...] as of this encounter Progress Notes * Lory Michael, PT - 03/25/2023 11:00 AM EDT Images from the original note were not included. Outpatient Physical Therapy Treatment Note Date of Service: 03/25/2023 Time In: 1047 Time Out: 1127 Patient name: Tessie Roa : 1980, 42 y.o. Medical Diagnosis: 1. Cervicalgia Referring Provider: Gee Quan APRN Payor: MEDICAID - MEDICAID [facility]ARE / Plan: [facility] / Product Type: *No Product type* / Visit # / Total Visits: SUBJECTIVE Patient reports she is still having around the same pain level today. Pain: 10 OBJECTIVE INTERVENTIONS Therapeutic Exercise Sets x Repetitions [...] wrist flexion/extension, R arm holding shoulder [] [] [] [] [] [] [] [] [] Total Time (min): 38 ASSESSMENT Patient tolerated session well today. Added some new interventions this session focusing on L emergency medical dispatcher strength and nerve flossing in order to improve reported deficits. She had a lot of trouble with green digiflex and was not able to perform so had to decrease to red. She also had a lot of trouble with ulnar nerve glides and was unable to maintain her arm in a 90-90 position due to pain and reportedstiffness in her L shoulder. PLAN Interventions: Continue Therapeutic Exercise (19167) Prognosis: Good Patient requires follow-up: Yes Total Treatment (min): 40' Timed Treatment (min): Therapeutic Exercise (31016) 38 minutes Electronically signed: Lory Michael PT 03/25/2023, 11:38 AM EDT documented in this encounter Plan of Treatment Upcoming Encounters Date Type Department Care Team (Late st Contact Info) Description 12/28/2024 11:00 AM EST Office Visit [facility] Gastroenterology [address] [place] [address] Christopher Mcghee MD [address] [facility] [address] [place] [address] documented as of this encounter Visit Diagnoses Diagnosis Cervicalgia- Primary documented in this encounter Care Teams Retail Merchandising Specialist Relationship Specialty Start Date End Date Uyen Hines MD [address] [place] [address] PCP - General Family Medicine 02/11/23 Gee Quan APRN [address] [place] [address] Nurse Practitioner 02/24/23 documented as of this encounter
--- OUTSIDE RECORDS SUMMARY | 2024-10-19 10:51 | XMS_ITS | Encounter Summary ---
Author Organization [employer] Address [address] [place] [address] Care Team Providers Care Beveling Machine Operator Name Role Phone Uyen Hines MD Primary Care Provider [phone] Gee Quan ECHO TECHNOLOGIST Unavailable [phone] Reason for Visit * Reason Onset Date Comments Abnormal Imaging Result 12/17/2023 See phon e note. Significant constipation on abdominal x-ray. Encounter Details Date Type Department Care Team (Late st Contact Info) Description 12/17/2023 Telephone [facility] Gastroenterology [address] [place] [address] Danya Marcus APRN Abnormal Imaging Result (See phone note. Significant constipation on abdominal x-ray.) Social History Tobacco Use Types Packs/Day Years [...] Date Ralf rded Speak language other than Djiboutian at home Not on file 12/11/2023 Want [...] encounter Miscellaneous Notes * Telephone Encounter - Danya Marcus APRN - 12/17/2023 4:01 PM EST Called patient with results of labs and abdominal x-ray. Confirmed constipation/significant stool burden. Has taken laxatives and plans to do enema today. Is scheduled for EGD tomorrow for evaluationof dysphagia, and EOE f/u. PACKER documented in this encounter Plan of Treatment Upcoming Encounters Date Type Department Care Team (Late st Contact Info) Description 12/28/2024 11:00 AM EST Office Visit [facility] Gastroenterology [address] [place] [address] Christopher Mcghee MD [address] [facility] [address] [place] [address] documented as of this encounter Visit Diagnoses Not on filedocumented in this encounter Care Teams Beveling Machine Operator Relationship Specialty Start Date End Date Uyen Hines MD [address] [place] [address] PCP - General Family Medicine 02/11/23 Gee Quan, CAMELIA [address] [place] [address] Nurse Practitioner 02/24/23 documented as of this encounter
--- OUTSIDE RECORDS SUMMARY | 2024-10-19 10:51 | XMS_ITS | Encounter Summary ---
Author Organization [employer] Address [address] [place] [address] Care Team Providers Care Cell Coverer Name Role Phone Uyen Hines MD Primary Care Provider [phone] Gee Quan CAD DEVELOPER Unavailable [phone] Reason for Visit * Auth/Cert (Routine) Specialty Diagnoses / Procedures Referred By Christopher t Referred To Contact Diagnoses Esophageal dysphagia Eosinophilic esophagitis Constipation, unspecified constipation type Weight loss, unintentional Generalized abdominal pain Same Procedures HI ESOPHAGOGASTRODUODENOSCOPY TRANSORAL DIAGNOSTIC HI EGD TRANSORAL BIOPSY SINGLE/MULTIPLE HI EGD BALLOON DILATION ESOPHAGUS <30 MM DIAM HI EGD REMOVAL TUMOR POLYP/OTHER LESION SNARE TECH EGD (ESOPHAGOGASTRODUODENOSCOPY) Galen Alvarenga MD [address] [place] [address] Phone: tel: fax: Referral ID Status Reason Start Date Expiration Date Visits Re quested Visits Authorized [id number] 12/16/2023 1 1 Encounter Details Date Type Department Care Team (Latest Contact Info) Description 12/18/2023 8:57 AM EST - 12/18/2023 11:26 AM EST Hospital Encounter [facility] [address] [place] [address] Galen Alvarenga MD [address] [place] [address] Esophageal dysphagia; Eosinophilic esophagitis; Constipation, unspecified constipation type; Weight loss, unintentional; Generalized abdominal pain Discharge Disposition: Home or [...] Date Ralf rded Speak language other than Kazakh at home Not on file 12/11/2023 Want [...] Sign Reading Time Taken Comments Blood Pressure 131/78 12/18/2023 11:12 AM EST Pulse 78 12/18/2023 11:12 AM EST Temperature 36.3 ??C (97.3 ??F) 12/18/2023 9:26 AM ES T Respiratory Rate 18 12/18/2023 11:12 AM EST Oxygen Saturation 100% 12/18/2023 11:12 AM EST Inhaled Oxygen Concentration - - [...] of EOE. She was previously treated with [id number] mg bid and flovent inhaler orally with [...] mouth, blurry vision and dizziness. She saw Machine Clothing Man and states that no problems identified. She [...] BALLOON DILATION; Surgeon: Galen Alvarenga MD; Location: [facility]; Service: Gastroenterology; Laterality: N/A; Family [...] follow-ups on file. Patient instructions given. . [employer] documented in this encounter Plan of Treatment Upcoming Encounters Date Type Department Care Team (Late st Contact Info) Description 12/28/2024 11:00 AM EST Office Visit [facility] Gastroenterology [address] [place] [address] Galen Alvarenga MD [address] [facility] [address] [place] [address] documented as of this encounter Procedures Procedure Name Priority Date/Time Associated Diagnosis Comments TISSUE EXAM [facility] AP Routine 12/18/2023 10:30 AM EST Esophageal dysphagia Eosinophilic esophagitis Constipation, unspecified constipation type Weight loss, unintentional Generalized abdominal pain EGD, WITH BALLOON DILATION 12/18/2023 10:15 AM EST Esophageal dysphagia Eosinophilic esophagitis Constipation, unspecified constipation type Weight loss, unintentional Generalized abdominal pain documented in this encounter Results * Tissue Exam (12/18/2023 10:30 AM EST) Pathologist [facility] AP RESULT See Note: [facility] Comment: [facility] [address] ?[place], [place] ??[address] or [phone] Cy Garcia M.D., Supervisor [employer] PATIENT NAME ? LABORATORY NO. [id number] ?? TOMMY PAGE. ? [phone] [id number] ? AGE ? SEX ?? SSN ?CLIENT REF # [facility] ? 43 ?1980 ?F ?[id number] DEAN ? REQUESTING M.D. ? ATTENDING M.D. ? COPY TO. [address] ? GALEN ALVARENGA [facility]], [place] [address] ?DATE COLLECTED ?DATE RECEIVED ?DATE REPORTED 12/18/2023 [...] Negative for intestinal metaplasia, dysplasia, or malignancy [facility] CLINICAL HISTORY: Other dysphagia, eosinophilic esophagitis, constipation, unspecified, abnormal weight loss, generalized abdominal pain SPECIMENS RECEIVED: A. ?ANTRUM, BIOPSY B. ?DUODENUM, BIOPSY C. ?ESOPHAGUS, BIOPSY , DISTAL D. ?ESOPHAGUS, BIOPSY , MID MICROSCOPIC DESCRIPTION: Tissue blocks are prepared and slides are examined microscopically on all specimens. See diagnosis for details. Professional interpretation rendered by Brianda Del Valle D.O. at [facility], [address] [place] [address]. GROSS DESCRIPTION: A. ?Labeled antrum biopsy . [...] BY: Brianda Del Valle D.O. CPT CODES: ??[id number] Tissue PYLORIC ANTRUM STRUCTURE / Unknown 12/18/2023 10:30 AM EST Tissue specimen (specimen) DUODENAL STRUCTURE / Unknown 12/18/2023 10:31 AM EST Tissue specimen (specimen) ESOPHAGEAL STRUCTURE / Unknown 12/18/2023 10:33 AM EST Tissue specimen (specimen) BIOPSY OF ESOPHAGUS / Unknown 12/18/2023 10:33 AM EST us Galen Alvarenga MD PATHOLOGY/CYTOLOGY ORDERABLES Final Result Performing Organization Address City/State/[facility] Co de Phone Number [facility] [address] [place] [address] documented in this encounter Visit Diagnoses Diagnosis Esophageal dysphagia Dysphagia, pharyngoesophageal phase Eosinophilic esophagitis Constipation, unspecified constipation type Weight loss, unintentional Loss of weight Generalized abdominal pain Abdominal pain, generalized CHF (congestive heart failure) (HCC) Congestive heart failure, unspecified Gastroesophageal reflux disease Esophageal reflux Dysphagia Dysphagia, unspecified Chronic renal insufficiency Chronic kidney disease, unspecified SANJU (obstructive sleep apnea) Obstructive sleep apnea (adult) (pediatric) documented in this encounter Admitting Diagnoses Diagnosis [...] scope documented in this encounter Care Teams Cell Coverer Relationship Specialty Start Date End Date Uyen Hines MD [address] [place] [address] PCP - General Family Medicine 02/11/23 Gee Quan, CAMELIA [address] [place] [address] Nurse Practitioner 02/24/23 documented as of this encounter
--- OUTSIDE RECORDS SUMMARY | 2024-10-19 10:51 | XMS_ITS | Encounter Summary ---
Author Organization [employer] Address [address] [address] Care Team Providers Care Speedometer Inspector Name Role Phone Uyen Hines MD Primary Care Provider [phone] Gee Quan FUSING MACHINE OPERATOR Unavailable [phone] Reason for Visit * Consultation (Routine) - Closed Specialty Diagnoses / Procedures Referred By Christopher yuan Referred To Contact Physical Therapy Diagnoses Cervicogenic headache Abnormal findings on diagnostic imaging of other parts of musculoskeletal system Cervicalgia Migraine with aura, not intractable, without status migrainosus Gee Quan, CAMELIA [address] [place] [address] Phone: tel: fax: [facility] Physical Therapy [address] [place] [address] Phone: tel: fax:[phone] Referral ID Status Reason Start Date Expiration Date V isits Requested Visits Authorized [id number] Closed Specialty Services Required 02/27/2023 06/27/2023 8 8 Encounter Details Date Type Department Care Team (Late st Contact Info) Description 03/11/2023 10:00 AM EDT Treatment [facility] Physical Therapy [address] [place] [address] Gee Quan APRN [address] [facility] [address] [place] [address] Kb Renae, PT Cervicalgia (Primary [...] Progress Notes * Kb Renae, ALBERTO - 03/11/2023 10:00 AM EDT Images from the original note were not included. Outpatient Physical Therapy Treatment Note Date of Service: 03/11/2023 Time In: 947 Time Out: 1024 Patient name: Tessie Roa : 1980, 42 y.o. Medical Diagnosis: 1. Cervicalgia Referring Provider: Gee Quan APRN Payor: MEDICAID - MEDICAID [facility] CARE / Plan: [facility] / Product Type: Medicaid Contracted / Visit # / Total Visits: SUBJECTIVE Patient reports same levels of pain today. She states she is willing to try dry needling today to reduce pain. Pain: 5/10 OBJECTIVE INTERVENTIONS Therapeutic Exercise Sets x Repetitions Weight/Resistance Cues/Comments HEP pulleys 3'/3' Flexion/abduction [] UBE 3'/3' Fwd/retro [] Cervical extension with overpressure 2' [] Cervical rotation with overpressure 2' [] Chin tucks x30 [] Lateral raises x30 RTB [] Upright row x30 RTB [] Shrugs x30 4lbs [] T-band Series x30 red Ext, rows [] [] [] [] [] [] [] [] [] [] [] [] Total Time (min): 34 Dry Needling- Suboccipitals bilaterally and cervical paraspinals bilaterally ASSESSMENT Patient tolerated all interventions well. T-band series and shrugs were added to treatment plan today to continue increasing shoulder and neck strength. Patient states that t-band series was not too challenging, but she had significant difficulty with shrugs. She states that this reproduced pain onL side. Patient required less frequent rest breaks during today's session. Dry needling was performed today to provide short term pain relief. Patient states this was slightly painful initially, but did not have adverse effects. Will reassess symptoms at next session and adjust treatment session accordingly. PLAN Interventions: Continue Therapeutic Exercise (08105) and Needle Insertion 3 or more Muscles () Prognosis: Good Patient requires follow-up: Yes Total Treatment (min): 38 Timed Treatment (min): Therapeutic Exercise (06529) 34 minutes Needle Insertion 3 or more Muscles () Electronically signed: Kb Renae, PT 03/11/2023, 9:55 AM EDT documented in this encounter Plan of Treatment Upcoming Encounters Date Type Department Care Team (Late st Contact Info) Description 12/28/2024 11:00 AM EST Office Visit [facility] Gastroenterology [address] [place] [address] Christopher Mcghee MD [address] [facility] [address] [place] [address] documented as of this encounter Visit Diagnoses Diagnosis Cervicalgia- Primary documented in this encounter Care Teams Speedometer Inspector Relationship Specialty Start Date End Date Uyen Hines MD [address] [place] [address] PCP - General Family Medicine 02/11/23 Gee Quan APRN [address] [place] [address] Nurse Practitioner 02/24/23 documented as of this encounter
--- OUTSIDE RECORDS SUMMARY | 2024-10-19 10:51 | XMS_ITS | Encounter Summary ---
Author Organization [employer] Address [address] [place] [address] Care Team Providers Care Fence Gate Assembler Name Role Phone Uyen Hines MD Primary Care Provider [phone] Gee Quan BODY STYLIST Unavailable [phone] Reason for Visit * Consultation (Routine) - Closed Specialty Diagnoses / Procedures Referred By Christopher yuan Referred To Contact Physical Therapy Diagnoses Cervicogenic headache Abnormal findings on diagnostic imaging of other parts of musculoskeletal system Cervicalgia Migraine with aura, not intractable, without status migrainosus Gee Quan, CAMELIA [address] [place] [address] Phone: tel: fax: [facility] Physical Therapy [address] [place] [address] Phone: tel: fax:[phone] Referral ID Status Reason Start Date Expiration Date V isits Requested Visits Authorized [id number] Closed Specialty Services Required 04/03/2023 05/03/2023 5 5 Encounter Details Date Type Department Care Team (Late st Contact Info) Description 04/10/2023 11:00 AM EDT Treatment [facility] Physical Therapy [address] [place] [address] Gee Quan APRN [address] [facility] [address] [place] [address] Honorio Montero PTA Cervicalgia (Primary [...] Progress Notes * Honorio Montero ISIDORO - 04/10/2023 11:00 AM EDT Images from the original note were not included. Outpatient Physical Therapy Treatment Note Date of Service: 04/10/2023 Time In: 1052 Time Out: 1140 Patient name: Tessie Roa : 1980, 42 y.o. Medical Diagnosis: 1. Cervicalgia Referring Provider: Gee Quan APRN Payor: MEDICAID - MEDICAID [facility] CARE / Plan: [facility] / Product Type: *No Product type* / Visit # / Total Visits: 3/5 SUBJECTIVE Pt stating at follow-up yesterday the doctor believes the bulging discs are causing increased compression. Pt reporting brain, cervical and lumbar MRI were completed and will receive a phone call to discuss plan for surgery. Pt stating she is continuing to experience increased UE numbness but has not experienced increased symptoms. Pain: 04/02 OBJECTIVE INTERVENTIONS Therapeutic Exercise Sets [...] shoulder [] Scaption Raises x30 1lb [] Lateral raises x30 1lb [] [] [] [] [] [] [] Total Time (min): 48 ASSESSMENT Pt completed all interventions this session without any report of increased UE numbness. Pt provided rest breaks as needed due to increased fatigue and to assess symptoms. Pt provided education to monitor numbness symptoms at home. Pt will continue to benefit from skilled therapy to improve mobility as well as cervical and scapular stability to attempt to decrease pain and symptoms. PLAN Interventions: Continue Therapeutic Exercise (62032) Prognosis: Good Patient requires follow-up: Yes Total Treatment (min): 48 Timed Treatment (min): Therapeutic Exercise (06362) 25 minutes Electronically signed: Honorio Montero PTA 04/10/2023, 6:05 PM EDT documented in this encounter Plan of Treatment Upcoming Encounters Date Type Department Care Team (Late st Contact Info) Description 12/28/2024 11:00 AM EST Office Visit [facility] Gastroenterology [address] [place] [address] Christopher Mcghee MD [address] [facility] [address] [place] [address] documented as of this encounter Visit Diagnoses Diagnosis Cervicalgia- Primary documented in this encounter Care Teams Fence Gate Assembler Relationship Specialty Start Date End Date Uyen Hines MD [address] [place] [address] PCP - General Family Medicine 02/11/23 Gee Quan APRN [address] [place] [address] Nurse Practitioner 02/24/23 documented as of this encounter
--- OUTSIDE RECORDS SUMMARY | 2024-10-19 10:51 | XMS_ITS | Encounter Summary ---
Author Organization [employer] Address [address] [address] Care Team Providers Care Agricultural Produce Packer Name Role Phone Uyen Hines MD Primary Care Provider Gee Quan PIT RECORDER Unavailable [phone] Reason for Visit * Consultation (Routine) - Closed Specialty Diagnoses / Procedures Referred By Christopher yuan Referred To Contact Physical Therapy Diagnoses Cervicogenic headache Abnormal findings on diagnostic imaging of other parts of musculoskeletal system Cervicalgia Migraine with aura, not intractable, without status migrainosus Gee Quan, CAMELIA [address] [place] [address] Phone: tel: fax: [facility] Physical Therapy [address] [place] [address] Phone: tel: fax:[phone] Referral ID Status Reason Start Date Expiration Date V isits Requested Visits Authorized [id number] Closed Specialty Services Required 04/03/2023 05/03/2023 5 5 Encounter Details Date Type Department Care Team (Late st Contact Info) Description 04/24/2023 9:00 AM EDT Treatment [facility] Physical Therapy [address] [place] [address] Gee Quan APRN [address] [place] [address] Honorio Montero PTA Cervicalgia (Primary [...] Progress Notes * Honorio Montero PTA - 04/24/2023 9:00 AM EDT Images from the original note were not included. Outpatient Physical Therapy Treatment Note Date of Service: 04/24/2023 Time In: 854 Time Out: 947 Patient name: Tessie Roa : 1980, 42 y.o. Medical Diagnosis: 1. Cervicalgia Referring Provider: Gee Quan APRN Payor: MEDICAID - MEDICAID [facility] CARE / Plan: [facility] / Product Type: *No Product type* / Visit # / Total Visits: 03/28 SUBJECTIVE Pt reporting she tolerated previous session well without any report of increased symptoms or pain. Pain: 0/10 OBJECTIVE INTERVENTIONS Therapeutic Exercise Sets x Repetitions Weight/Resistance Cues/Comments HEP pulleys 3'/3' Flexion/abduction [] UBE 3'/3' Fwd/retro [] Cervical extension with towel overpressure 2' [] Cervical rotation with towel overpressure 2' [] Chin tucks x30 [] Lateral raises x30 2# [] Upright row x30 RTB [] Shrugs x30 2lbs [] T-band Series x30 green Ext, rows [] Thoracic extension over chair 2' [] Digiflex- L 2' Red [] Scaption Raises x30 1lb [] Lateral raises x30 1lb [] [] [] [] [] [] [] Total Time (min): 53 ASSESSMENT Pt tolerated session well without any report of increased cervical or shoulder pain. Pt provided education to notify therapist of any increased numbness or tingling symptoms throughout session. Pt provided HEP and extended education for proper completion of interventions and progression of interventions at home due to pt stating she would like to d/c this session due to visit restrictions and other appointments regarding stroke. Pt demonstrates good understanding of HEP at completion of session. PLAN Interventions: Continue Therapeutic Exercise (04614) Prognosis: Good Patient requires follow-up: Yes Total Treatment (min): 53 Timed Treatment (min): Therapeutic Exercise (72412) 53 minutes Electronically signed: Honorio Montero PTA 04/24/2023, 9:52 AM EDT * Lory Michael PT - 04/24/2023 9:00 AM EDT Images from the original note were not included. Outpatient Physical Therapy Discharge Summary 04/24/2023 Tessie Roa 1980 1. Cervicalgia Referring Physician: Gee Quan APRN Insurance: Payor: MEDICAID - MEDICAID [facility]ARE / Plan: [facility] / Product Type: *No Product type* / Date Physical Therapy Initiated: 02/27/2023 Date Physical Therapy Discontinued: 04/24/2023 ASSESSMENT Functional Status at Discharge: Patient has met subjective goals and is ready to be discharged fromphysical therapy. Treatment: Therapeutic Exercise (00316) Number of Goals Met: 0 Number of Goals Not Met: Human Resources Training Manager Goal 1, Human Resources Training Manager Goal 2, Retirement Goal 3 and Retirement Goal 4 Reason Goals Not Met: Not enough time RECOMMENDATIONS Education Provided: yes Family Present: no HEP Issued: yes Discharge Plan and Recommendations/Continuum of Care: Continue HEP Discharge Disposition: Good Lory Michael PT, DPT documented in this encounter Plan of Treatment Upcoming Encounters Date Type Department Care Team (Late st Contact Info) Description 12/28/2024 11:00 AM EST Office Visit [facility] Gastroenterology [address] [place] [address] Christopher Mcghee MD [address] [facility] [address] [place] [address] documented as of this encounter Visit Diagnoses Diagnosis Cervicalgia- Primary documented in this encounter Care Teams Agricultural Produce Packer Relationship Specialty Start Date End Date Uyen Hines MD [address] [place] [address] PCP - General Family Medicine 02/11/23 Gee Quan APRN [address] [place] [address] Nurse Practitioner 02/24/23 documented as of this encounter
--- OUTSIDE RECORDS SUMMARY | 2024-10-19 10:51 | XMS_ITS | Encounter Summary ---
Author Organization [employer] Address [address] [place] [address] Care Team Providers Care Employee Relations Specialist Name Role Phone Uyen Hines MD Primary Care Provider [phone] Gee Quan APRN Unavailable [phone] Reason for Referral * Diagnostic X-Ray (Routine) - Closed Specialty Diagnoses / Procedures Referred By Christopher yuan Referred To Contact Diagnoses Constipation, unspecified constipation type Generalized abdominal pain Procedures XR abdomen 2 views flat and upright Danya Marcus APRN Referral ID Status Reason Start Date Expiration Date Visits Re quested Visits Authorized [id number] Closed 12/16/2023 06/13/2024 1 1 Reason for Visit * Diagnostic X-Ray (Routine) - Closed Specialty Diagnoses / Procedures Referred By Christopher yuan Referred To Contact Diagnoses Constipation, unspecified constipation type Generalized abdominal pain Procedures XR abdomen 2 views flat and upright Danya Marcus APRN Referral ID Status Reason Start Date Expiration Date Visits Re quested Visits Authorized [id number] Closed 12/16/2023 06/13/2024 1 1 Encounter Details Date Type Department Care Team (Latest Contact Info) Description 12/16/2023 12:06 PM EST - 12/16/2023 11:59 PM EST Hospital Encounter [facility] Diagnostic Imaging [address] [place] [address] Danya Marcus APRN Constipation, unspecified constipation type; Generalized abdominal pain Discharge Disposition: Home [...] Date Ralf rded Speak language other than Beninese at home Not on file 12/11/2023 Want [...] 01/16/2023 4 documented as of this encounter Plan of Treatment Upcoming Encounters Date Type Department Care Team (Late st Contact Info) Description 12/28/2024 11:00 AM EST Office Visit [facility] Gastroenterology [address] [place] [address] Christopher Mcghee MD [address] [facility] [address] [place] [address] documented as of this encounter Procedures Procedure Name Priority Date/Time Associated Diagnosis Comments XR ABDOMEN 2 VIEWS FLAT AND UPRIGHT Routine 12/16/2023 12:18 PM EST Constipation, unspecified constipation type Generalized abdominal pain documented in this encounter Results * XR abdomen 2 views flat and upright (12/16/2023 12:18 PM EST) Anatomical Region Laterality Modality Abdomen X-Ray 12/16/2023 2:50 PM EST Impressions 12/16/2023 2:53 PM EST Constipation. Images reviewed, interpreted, and dictated by Dr. Seema Pérez. Transcribed by Melani Jarvis PA-C. Narrative 12/16/2023 2:53 PM EST TWO VIEW ABDOMEN HISTORY: Constipation. COMPARISON: ?? None ABDOMEN: Flat and upright views of the abdomen demonstrate a nonspecific, nonobstructive bowel gas pattern. There is extensive stool throughout the colon consistent with constipation. There is no free air. There are multiple right upper quadrant surgical clips consistent with cholecystectomy. Procedure Note Bandar Pérez MD - 12/16/2023 TWO VIEW ABDOMEN HISTORY: Constipation. COMPARISON: None ABDOMEN: Flat and upright views of the abdomen demonstrate a nonspecific, nonobstructive bowel gas pattern. There is extensive stool throughout the colon consistent with constipation. There is no free air. There are multiple right upper quadrant surgical clips consistent with cholecystectomy. IMPRESSION: Constipation. Images reviewed, interpreted, and dictated by Dr. Seema Pérez. Transcribed by Melani Jarvis PA-C. Danya Marcus APRN IMG DIAGNOSTIC IMAGING ORDERAB LES Final Result documented in this encounter Visit Diagnoses Diagnosis Constipation, unspecified constipation type Generalized abdominal pain Abdominal pain, generalized documented in this encounter Care Teams Employee Relations Specialist Relationship Specialty Start Date End Date Uyen Hines MD [address] [place] [address] PCP - General Family Medicine 02/11/23 Gee Quan APRN [address] [place] [address] Nurse Practitioner 02/24/23 documented as of this encounter
--- OUTSIDE RECORDS SUMMARY | 2024-10-19 10:51 | XMS_ITS | Encounter Summary ---
Author Organization [employer] Address [address] [place] [address] Care Team Providers Care Supervisor Melt House Name Role Phone Uyen Hines MD Primary Care Provider [phone] Gee Quan SET KEY DRIVER Unavailable [phone] Encounter Details Date Type Department Care Team (Latest Contact Info) Description 12/16/2023 3:00 PM EST Lab Patient Walk-[facility] [address] [place] [phone] Danya Marcus APRN Generalized abdominal pain; Diarrhea, unspecified type Social History Tobacco Use [...] Description 12/28/2024 11:00 AM EST Office Visit [facility] Gastroenterology [address] [place] [address] Christopher Mcghee MD [address] [place] [address] documented as of this encounter Procedures Procedure Name Priority Date/Time Associated Diagnosis Comments LIPASE Routine 12/16/2023 12:46 PM EST Generalized abdominal pain Weight loss, unintentional CBC W/ AUTO DIFF Routine 12/16/2023 12:4 6 PM EST Generalized abdominal pain Diarrhea, unspecified type URINALYSIS, REFLEX MICROSCOPIC AND CULTURE IF INDICATED Routine 12/16/2023 12:46 PM EST Generalized abdominal pain COMPREHENSIVE METABOLIC PANEL Routine 12/16/2023 12:46 PM EST Generalized abdominal pain Diarrhea, unspecified type documented in this encounter Results * (ABNORMAL) Comprehensive metabolic panel (12/16/2023 12:46 PM EST) Sodium 133(L) 136 - 145 meq/L 12/16/2023 1:40 PM EST [facility] Potassium 4.5 3.5 - 5.1 meq/L 12/16/2023 1:40 PM [facility] Chloride 100 98 - 107 meq/L 12/16/2023 1:40 PM [facility] CO2 28 21 - 32 meq/L 12/16/2023 1:40 PM [facility] Calcium 9.1 8.5 - 10.1 mg/dL 12/16/2023 1:40 PM [facility] Glucose 104(H) 70 - 99 mg/dL 12/16/2023 1:40 PM [facility] BUN 16 7 - 18 mg/dL 12/16/2023 1:40 PM [facility] Creatinine 1.24(H) 0.55 - 1.10 mg/dL 12/16/2023 1:40 PM [facility] BUN/Creatinine 13 12/16/2023 1:40 PM [facility] Albumin 3.3(L) 3.4 - 5.0 g/dL 12/16/2023 1:40 PM [facility] Alkaline Phosphatase 82 46 - 116 U/L 12/16/2023 1:40 PM [facility] ALT 12 12 - 78 U/L 12/16/2023 1:40 PM [facility] AST 16 15 - 37 U/L 12/16/2023 1:40 PM [facility] Total Bilirubin 0.6 0.2 - 1.0 mg/dL 12/16/2023 1:40 PM [facility] Protein, Total 7.5 6.4 - 8.2 gm/dL 12/16/2023 1:40 PM [facility] Anion Gap 10(L) 11 - 22 12/16/2023 1:40 PM [facility] A/G Ratio 0.8 12/16/2023 1:40 PM [facility] Globulin 4.2 g/dL 12/16/2023 1:40 PM [facility] Osmolality Calc 267.9 1:40 PM [facility] eGFR (mL/min/1.73m2) 56(L) >=60 mL/min/1.7 3m2 12/16/2023 1:40 PM [facility] Comment:ESTIMATED GFR IS NOT ACCURATE CREATININE CLEARANCE IN PREDICTING GLOMERULAR FILTRATION RATE. ESTIMATED GFR IS NOT APPLICABLE FOR DIALYSIS PATIENTS. Blood Venipuncture / Unknown 12/16/2023 12:46 PM EST 12/16/2023 12:49 PM EST us Josefina Ziegler PA-C LAB BLOOD ORDERABLES Final Re sult [facility] [address] [place], [place] [address] [phone] * (ABNORMAL) CBC with automated diff (12/16/2023 12:46 PM EST) WBC 9.2 4.8 - 10.8 K/??L 12/16/2023 12:52 PM [facility] RBC 4.30 3.50 - 5.20 M/??L 12/16/2023 12:52 PM [facility] Hemoglobin 12.7 11.7 - 15.8 GM/DL 12/16/2023 12:52 PM [facility] Hematocrit 39.1 35.0 - 47.0 % 12/16/2023 12:52 PM [facility] MCV 91 81 - 101 fL 12/16/2023 12:52 PM [facility] MCH 29.5 27.0 - 34.0 pg 12/16/2023 12:52 PM [facility] MCHC 32.5 32.0 - 36.0 GM/DL 12/16/2023 12:52 PM [facility] RDW 14.5 11.5 - 14.5 % 12/16/2023 12:52 PM [facility] Platelets 459(H) 150 - 400 K/CU MM 12/16/2023 12:52 PM [facility] MPV 8.4(L) 9.4 - 12.4 fL 12/16/2023 12:52 PM [facility] Nucleated Red Blood Cell 0.0 0 - 0.2 % 12/16/2023 12:52 PM [facility] % Neutros 64 37 - 80 % 12/16/2023 12:52 PM [facility] % Lymphs 24 10 - 50 % 12/16/2023 12:52 PM [facility] % Monos 8 5 - 13 % 12/16/2023 12:52 PM [facility] % Eos 3 0 - 7 % 12/16/2023 12:52 PM [facility] % Baso 1 0 - 3 % 12/16/2023 12:52 PM [facility] NRBC Absolute 0.00 0 - 0.12 K/ul 12/16/2023 12:52 PM [facility] # Neutros 5.84 2.00 - 6.90 K/??L 12/16/2023 12:52 PM [facility] # Lymphs 2.22 0.60 - 3.40 K/??L 12/16/2023 12:52 PM [facility] # Monos 0.76 0.00 - 0.90 K/??L 12/16/2023 12:52 PM [facility] # Eos 0.24 0.00 - 0.70 K/??L 12/16/2023 12:52 PM [facility] # Baso 0.06 0.00 - 0.20 K/??L 12/16/2023 12:52 PM [facility] Immature Granulocytes-Re lative 0.40(H) 0.00 - 0.00 % 12/16/2023 12:52 PM [facility] # IG 0.04(H) 0.00 - 0.00 K/uL 12/16/2023 12:52 PM [facility] Blood Venipuncture / Unknown 12/16/2023 12:46 PM EST 12/16/2023 12:49 PM EST Narrative [facility] - 12/16/2023 12:52 PM EST When CBC w/ Auto Diff is ordered the lab will add a Manual Differential as a quality check at no additional charge if: Lymphocytes greater than seventy five percent with normal or increased WBC Monocytes greater than Fifteen percent Basophil greater than four percent Bands >10% or several immature myeloids are seen on scan Blast? Flag noted Atypical Lymph flag noted us Josefina Ziegler PA-C LAB BLOOD ORDERABLES Final Re sult [facility] [address] [place] [address], [facility] [phone] * Urinalysis, Reflex Microscopic and Culture If Indicated (12/16/2023 12:46 PM EST) Color, UA Straw 12/16/2023 12:59 PM [facility] Clarity, UA Clear 12/16/2023 12:59 PM [facility] Specific [place], UA <=1.005 1.002 - 1.030 12/16/2023 12:59 PM [facility] pH, UA 6.0 5.0 - 9.0 12/16/2023 12:59 PM [facility] Leukocytes, UA Negative Negative 12/16/2023 12:59 PM EST [facility] Nitrite, UA Negative Negative 12/16/2023 12:59 PM [facility] Protein, UA Negative Negative 12/16/2023 12:59 PM EST [facility] Glucose, UA Negative Negative 12/16/2023 12:59 PM [facility] Ketones, UA Negative Negative 12/16/2023 12:59 PM [facility] Bilirubin, UA Negative Negative 12/16/2023 12:59 PM EST [facility] Blood, UA Negative Negative 12/16/2023 12:59 PM [facility] Urobilinogen, UA 1.0 mg/dL Normal 12/16/2023 12:59 PM [facility] Specimen Source Urine, Clean Catch 12/16/2023 12:59 PM EST [facility] Urine URINE SPECIMEN COLLECTION, CLEAN CATCH / Unknown 12/16/2023 12:46 PM EST 12/16/2023 12:48 PM EST us Danya Marcus SET KEY DRIVER URINE ORDERABLES Final Result [facility] [address] [phone] documented in this encounter Visit Diagnoses Diagnosis Generalized abdominal pain Abdominal pain, generalized Diarrhea, unspecified type documented in this encounter Care Teams Supervisor Melt House Relationship Specialty Start Date End Date Uyen Hines MD [address] [place] [phone] PCP - General Family Medicine 02/11/23 Gee Quan APRN [address] [place] [phone] Nurse Practitioner 02/24/23 documented as of this encounter
--- OUTSIDE RECORDS SUMMARY | 2024-10-19 10:51 | XMS_ITS | Encounter Summary ---
Author Organization [employer] Address [address] [place] [address] Care Team Providers Care Property Insurance Agent Name Role Phone Uyen Hines MD Primary Care Provider [phone] Gee Quan APRN Unavailable [phone] Reason for Referral * Ultrasound (Routine) - Closed Specialty Diagnoses / Procedures Referred By Christopher yuan Referred To Contact Radiology Diagnoses Generalized abdominal pain Weight loss, unintentional Procedures US abdomen complete Danya Marcus APRN [facility] Ultrasound [address] [place] [phone] Phone: tel: fax: Referral ID Status Reason Start Date Expiration Date Visits Re quested Visits Authorized [id number] Closed 12/16/2023 06/13/2024 1 1 * Diagnostic X-Ray (Routine) - Closed Specialty Diagnoses / Procedures Referred By Christopher yuan Referred To Contact Diagnoses Constipation, unspecified constipation type Generalized abdominal pain Procedures XR abdomen 2 views flat and upright Danya Marcus APRN Referral ID Status Reason Start Date Expiration Date Visits Re quested Visits Authorized [id number] Closed 12/16/2023 06/13/2024 1 1 Reason for Visit * Reason Comments Follow-up Pt statesdupixent is not helping, its causing dry mouth, Encounter Details Date Type Department Care Team (Latest Contact Info) Description 12/16/2023 11:00 AM EST Office Visit [facility] Gastroenterology [address] [place] [address] Danya Marcus APRN Esophageal dysphagia (Primary Dx); Eosinophilic esophagitis; Constipation, unspecified constipation type; Generalized abdominal pain; Weight loss, unintentional Social History Tobacco Use Types Packs/Day Years [...] Date Ralf rded Speak language other than Citizen Of [place] at home Not on file 12/11/2023 Want [...] Sign Reading Time Taken Comments Blood Pressure 111/72 12/16/2023 10:40 AM EST Pulse 90 12/16/2023 10:40 AM EST Temperature - - Respiratory Rate 20 12/16/2023 10:40 AM EST Oxygen Saturation - - Inhaled Oxygen Concentration - - Weight 104.3 kg (230 lb) 12/16/2023 10:40 AM EST Height 162.6 cm (5' 4 ) 12/16/2023 10:40 AM EST Body Mass Index 39.48 12/16/2023 10:40 AM EST documented in this encounter Progress Notes * Danya Marcus, BRIDGE WELDER - 12/16/2023 11:00 AM EST Gastroenterology Follow up Subjective: Chief Complaint Patient presents with ??? Follow-up Pt statesdupixent is not helping, its causing dry mouth, Tessie Roa is a 43 y.o. female her for f/u of EOE. She was previously treated with [id number] mg bid and flovent inhaler orally with [...] mouth, blurry vision and dizziness. She saw Card Doffer and states that no problems identified. She [...] BM. Allergies: No Known Allergies Medications: Current Outpatient [...] BALLOON DILATION; Surgeon: Christopher Mcghee MD; Location: [facility]; Service: Gastroenterology; Laterality: N/A; Family [...] focal weakness. Endo/Heme/Allergies: Negative for polydipsia. Objective: BP 111/72 Pulse 90 Resp 20 Ht 1.626 m (5' 4 ) Wt 104.3 kg (230 lb) BMI 39.48 kg/m?? Physical Exam Vitals reviewed. Constitutional: General: [...] Affect: Mood normal. Behavior: Behavior normal. Assessment: 1. Esophageal dysphagia 2. Eosinophilic esophagitis 3. Constipation, unspecified constipation type 4. Generalized abdominal pain 5. Weight loss, unintentional Plan: 1. EGD 12/18/23 @ 9:30 am [...] ?? Orders Placed This Encounter Procedures ??? XR abdomen 2 views flat and upright ??? US abdomen complete ??? Lipase ??? Urinalysis, Reflex Microscopic and Culture If Indicated Requested Prescriptions Signed Prescriptions Disp Refills ??? sucralfate (CARAFATE) 100 mg/mL suspension 900 mL 1 Sig: Take 10 mLs (1 g total) by mouth 3 (three) times daily before meals. No follow-ups on file. Patient instructions given. . E FABRICATOR documented in this encounter Plan of Treatment Upcoming Encounters Date Type Department Care Team (Late st Contact Info) Description 12/28/2024 11:00 AM EST Office Visit [facility] Gastroenterology [address] [place] [address] Christopher Mcghee MD [address] [place] [address] Scheduled Orders Name Type Priority Associated Diagnoses Orde r Schedule US abdomen complete Imaging Routine Generalized abdominal pain Weight loss, unintentional Expected: 12/16/2023 (Approximate), Expires: 12/15/2024 documented as of this encounter Procedures Procedure Name Priority Date/Time Associated Diagnosis Comments LIPASE Routine 12/16/2023 12:46 PM EST Generalized abdominal pain Weight loss, unintentional documented in this encounter Results * Urinalysis, Reflex Microscopic and Culture If Indicated (12/16/2023 12:46 PM EST) Color, UA Straw 12/16/2023 12:59 PM EST [facility] Clarity, UA Clear 12/16/2023 12:59 PM EST [facility] Specific [place], UA <=1.005 1.002 - 1.030 12/16/2023 12:59 PM EST [facility] pH, UA 6.0 5.0 - 9.0 12/16/2023 12:59 PM EST [facility] Leukocytes, UA Negative Negative 12/16/2023 12:59 PM EST [facility] Nitrite, UA Negative Negative 12/16/2023 12:59 PM EST [facility] Protein, UA Negative Negative 12/16/2023 12:59 PM EST [facility] Glucose, UA Negative Negative 12/16/2023 12:59 PM EST [facility] Ketones, UA Negative Negative 12/16/2023 12:59 PM EST [facility] Bilirubin, UA Negative Negative 12/16/2023 12:59 PM EST [facility] Blood, UA Negative Negative 12/16/2023 12:59 PM EST [facility] Urobilinogen, UA 1.0 mg/dL Normal 12/16/2023 12:59 PM EST [facility] Specimen Source Urine, Clean Catch 12/16/2023 12:59 PM EST [facility] Urine URINE SPECIMEN COLLECTION, CLEAN CATCH / Unknown 12/16/2023 12:46 PM EST 12/16/2023 12:48 PM EST us Danya Marcus BRIDGE WELDER URINE ORDERABLES Final Result Performing Organization Address [facility]/ZIP Co de Phone Number [facility] [address] [place] [address] * Lipase (12/16/2023 12:46 PM EST) Lipase 24 16 - 77 U/L 12/16/2023 1:40 PM EST [facility] Blood Venipuncture / Unknown 12/16/2023 12:46 PM EST 12/16/2023 12:49 PM EST Danya Marcus APRN LAB BLOOD ORDERABLES Final Res ult Performing Organization Address [facility]/ZIP Co de Phone Number [facility] [address] [place] [address] * XR abdomen 2 views flat and [...] Seema Pérez. Transcribed by Melani Jarvis PA-C. us Danya Marcus APRN IMG DIAGNOSTIC IMAGING ORDERAB LES Final Result documented in this encounter Visit Diagnoses Diagnosis Esophageal dysphagia- Primary Dysphagia, pharyngoesophageal phase Eosinophilic esophagitis Constipation, unspecified constipation type Generalized abdominal pain Abdominal pain, generalized Weight loss, unintentional Loss of weight Constipation, unspecified constipation type Generalized abdominal pain Abdominal pain, generalized documented in this encounter Care Teams Property Insurance Agent Relationship Specialty Start Date End Date Uyen Hines MD [address] [place] [phone] PCP - General Family Medicine 02/11/23 Gee Quan APRN [address] [place] [address] Nurse Practitioner 02/24/23 documented as of this encounter
--- OUTSIDE RECORDS SUMMARY | 2024-10-19 10:51 | XMS_ITS | Encounter Summary ---
Author Organization [employer] Address [address] [place] [address] Care Team Providers Care Internet Manager Name Role Phone Uyen Hines MD Primary Care Provider [phone] Gee Quan SHEETMETAL PATTERNMAKER Unavailable Reason for Visit * Consultation (Routine) - Closed Specialty Diagnoses / Procedures Referred By Christopher yuan Referred To Contact Physical Therapy Diagnoses Cervicogenic headache Abnormal findings on diagnostic imaging of other parts of musculoskeletal system Cervicalgia Migraine with aura, not intractable, without status migrainosus Gee Quan, SHEETMETAL PATTERNMAKER [address] [place] [address] Phone: tel: fax: [facility] [address] [place] [address] Phone: tel: fax:[phone] Referral ID Status Reason Start Date Expiration Date V isits Requested Visits Authorized [id number] Closed Specialty Services Required 02/27/2023 06/27/2023 8 8 Encounter Details Date Type Department Care Team (Late st Contact Info) Description 04/01/2023 10:00 AM EDT Treatment [facility] [address] [place] [address] Uyen Hines MD [address] [place], [place] [id number] Kb Renae, PT Cervicalgia (Primary Dx) Social [...] Progress Notes * Kb Renae, PT - 04/01/2023 10:00 AM EDT Images from the original note were not included. Outpatient Physical Therapy Progress Note 04/01/2023 Time In: 937 Time Out: 103 Tessiemary Torofitt 1980 42 y.o. 1. Cervicalgia Referring Provider: Gee Quan APRN Insurance: Payor: MEDICAID - MEDICAID [facility] CARE / [facility] / Product Type: *No Product type* / Visit # / Total Visits: SUBJECTIVE Patient reports she is having a rough day today and is having moderate levels of neck pain. Pain: 06/02 Location: L upper trap Description: Burning Symptoms since onset: Same OBJECTIVE Cervical ROM Degrees Flexion 55 Extension 53 Left Sidebend 35 Right Sidebend 45 Left Rotation 70 Right Rotation 63 Shoulder ROM (degrees) LEFT Flexion 143 Abduction 90 Internal Rotation PSIS External Rotation 70 Strength Shoulder/Scapula LEFT RIGHT Flexion 4-/5 5/5 Abduction 4/5 5/5 External Rotation 4/5 5/5 Internal Rotation 4/5 5/5 Functional Outcome Measure: NDI= 56% INTERVENTIONS Therapeutic Exercise Sets x Repetitions Weight/Resistance Cues/Comments HEP pulleys 3'/3' Flexion/abduction [] UBE 3'/3' Fwd/retro [] Cervical extension with towel overpressure 2' [] Cervical rotation with towel overpressure 2' [] Chin tucks x30 [] Lateral raises x30 [] Upright row x30 GTB [] Shrugs x30 2lbs [] T-band Series x30 green Ext, rows [] Thoracic extension over chair 2' [] Digiflex- L 2' Red [] Seated ulnar glides 2' 90-90 with wrist flexion/extension, R arm holding shoulder [] [] [] [] [] [] [] [] [] Total Time (min): 52 Total Treatment (min): 52 Timed Treatment (min): Therapeutic Exercise (31711) 38 minutes ASSESSMENT Patient has made small improvements with rehab interventions provided. Since initial evaluations she has had consistent headaches and cervical pain. She still reports numbness and tingling into 4th and 5th digits. With objective testing patient has had an increase in shoulder flexion and shoulder external rotation. Patient has also made improvements in shoulder internal and external rotation. Patient has increase flexion cervical mobility as well. Patient has also had an improvement in NDI score. Patient will continue to benefit from management by a physical therapist to increase strength, increase mobility, and reduce pain to return patient to premorbid status. PLAN Prognosis: Fair Problems: Pain Decreased ROM Decreased strength Decreased functional mobility Patient Goal: Decreased Pain Improve Mobility Improve Strength Resume ADL's w/o Symptoms Return to Prior Activity Level Learn Home Exercise Program Patient Education: Eval results/Plan of Care and HEP Gate Watchman Goals: 1. Patient will score a 30% on NDI in 12 weeks in order to demonstrate a clinically significant improvement in subjective function for activities such as lying flat in bed to sleep. (Patient scores a56% today. Not Met, Progressing) 2. Patient will increase blower mechanic strength to 60lbs in 12 weeks to allow the patient to carry her groceries without dropping. (Patient has 35lbs of blower mechanic strength today. Not Met, Progressing) 3. Patient will report of pain <3/10 in 12 weeks which will allow her to complete household ADL without rest breaks. (Patient has 7/10 pain today. Not Met, No Change.) 4. Patient will be independent with discharge home exercise program to improve self-care ADL's. Plan of Care Certification Date: 02/27/2023 - 05/29/2023 Frequency/Duration: 2x/Week for 12 weeks Electronically signed by: Kb Renae PT 04/01/2023, 9:39 AM documented in this encounter Plan of Treatment Upcoming Encounters Date Type Department Care Team (Late st Contact Info) Description 12/28/2024 11:00 AM EST Office Visit [facility] Gastroenterology [address] [place] [phone] Christopher Mcghee MD [address] [facility] [address] [place] [address] documented as of this encounter Visit Diagnoses Diagnosis Cervicalgia- Primary documented in this encounter Care Teams Internet Manager Relationship Specialty Start Date End Date Uyen Hines MD [address] [place] [phone] PCP - General Family Medicine 02/11/23 Gee Quan APRN [address] [place] [address] Nurse Practitioner 02/24/23 documented as of this encounter
--- OUTSIDE RECORDS SUMMARY | 2024-10-19 10:51 | XMS_ITS | Encounter Summary ---
Author Organization [employer] Address [address] [place] [address] Care Team Providers Care Didactic Program In Dietetics Director Name Role Phone Uyen Hines MD Primary Care Provider [phone] Gee Quan CAGE FIGHTER Unavailable [phone] Encounter Details Date Type Department Care Team (Late st Contact Info) Description 09/17/2023 Orders Only [facility] Gastroenterology [address] [place] [phone] Josefina Ziegler PA-C Generalized abdominal pain (Primary Dx); Diarrhea, unspecified type Social History Tobacco Use [...] as of this encounter Progress Notes * Josefina Ziegler PA-C - 09/17/2023 9:04 AM EDT Per insurance pt needs CBC, CMP, and UA as well as Us of the abd. Before we can proceed with enterography documented in this encounter Plan of Treatment Upcoming Encounters Date Type Department Care Team (Late st Contact Info) Description 12/28/2024 11:00 AM EST Office Visit [facility] Gastroenterology [address] [place] [address] Christopher Mcghee MD [address] [place] [address] documented as of this encounter Results * (ABNORMAL) Comprehensive metabolic panel (12/16/2023 12:46 PM EST) Sodium 133(L) 136 - 145 meq/L 12/16/2023 1:40 PM [facility] Potassium 4.5 3.5 - 5.1 meq/L 12/16/2023 1:40 PM [facility] Chloride 100 98 - 107 meq/L 12/16/2023 1:40 PM [facility] CO2 28 21 - 32 meq/L 12/16/2023 1:40 PM [facility] Calcium 9.1 8.5 - 10.1 mg/dL 12/16/2023 1:40 PM [facility] Glucose 104(H) 70 - 99 mg/dL 12/16/2023 1:40 PM [facility] BUN 16 7 - 18 mg/dL 12/16/2023 1:40 PM [facility] Creatinine 1.24(H) 0.55 - 1.10 mg/dL 12/16/2023 1:40 PM [facility] BUN/Creatinine 13 12/16/2023 1:40 PM [facility] Albumin 3.3(L) 3.4 - 5.0 g/dL 12/16/2023 1:40 PM [facility] Alkaline Phosphatase 82 46 - 116 U/L 12/16/2023 1:40 PM [facility] ALT 12 12 - 78 U/L 12/16/2023 1:40 PM [facility] AST 16 15 - 37 U/L 12/16/2023 1:40 PM EST [facility] Total Bilirubin 0.6 0.2 - 1.0 mg/dL 12/16/2023 1:40 PM EST [facility] Protein, Total 7.5 6.4 - 8.2 gm/dL 12/16/2023 1:40 PM [facility] Anion Gap 10(L) 11 - 22 12/16/2023 1:40 PM EST [facility] A/G Ratio 0.8 12/16/2023 1:40 PM EST [facility] Globulin 4.2 g/dL 12/16/2023 1:40 PM [facility] Osmolality Calc 267.9 1:40 PM [facility] eGFR (mL/min/1.73m2) 56(L) >=60 mL/min/1.7 3m2 12/16/2023 1:40 PM [facility] Comment:ESTIMATED GFR IS NOT ACCURATE CREATININE CLEARANCE IN PREDICTING GLOMERULAR FILTRATION RATE. ESTIMATED GFR IS NOT APPLICABLE FOR DIALYSIS PATIENTS. Blood Venipuncture / Unknown 12/16/2023 12:46 PM EST 12/16/2023 12:49 PM EST Josefina Ziegler PA-C LAB BLOOD ORDERABLES Final Re sult [facility] [address] [place] [address], [facility] [phone] * (ABNORMAL) CBC with automated diff (12/16/2023 12:46 PM EST) WBC 9.2 4.8 - 10.8 K/??L 12/16/2023 12:52 PM [facility] RBC 4.30 3.50 - 5.20 M/??L 12/16/2023 12:52 PM [facility] Hemoglobin 12.7 11.7 - 15.8 GM/DL 12/16/2023 12:52 PM EST [facility] Hematocrit 39.1 35.0 - 47.0 % 12/16/2023 12:52 PM [facility] MCV 91 81 - 101 fL 12/16/2023 12:52 PM [facility] MCH 29.5 27.0 - 34.0 pg 12/16/2023 12:52 PM [facility] MCHC 32.5 32.0 - 36.0 GM/DL 12/16/2023 12:52 PM [facility] RDW 14.5 11.5 - 14.5 % 12/16/2023 12:52 PM [facility] Platelets 459(H) 150 - 400 K/CU MM 12/16/2023 12:52 PM [facility] MPV 8.4(L) 9.4 - 12.4 fL 12/16/2023 12:52 PM [facility] Nucleated Red Blood Cell 0.0 0 - 0.2 % 12/16/2023 12:52 PM [facility] % Neutros 64 37 - 80 % 12/16/2023 12:52 PM [facility] % Lymphs 24 10 - 50 % 12/16/2023 12:52 PM [facility] % Monos 8 5 - 13 % 12/16/2023 12:52 PM [facility] % Eos 3 0 - 7 % 12/16/2023 12:52 PM [facility] % Baso 1 0 - 3 % 12/16/2023 12:52 PM [facility] NRBC Absolute 0.00 0 - 0.12 K/ul 12/16/2023 12:52 PM [facility] # Neutros 5.84 2.00 - 6.90 K/??L 12/16/2023 12:52 PM [facility] # Lymphs 2.22 0.60 - 3.40 K/??L 12/16/2023 12:52 PM [facility] # Monos 0.76 0.00 - 0.90 K/??L 12/16/2023 12:52 PM EST [facility] # Eos 0.24 0.00 - 0.70 K/??L 12/16/2023 12:52 PM EST [facility] # Baso 0.06 0.00 - 0.20 K/??L 12/16/2023 12:52 PM EST [facility] Immature Granulocytes-Re lative 0.40(H) 0.00 - 0.00 % 12/16/2023 12:52 PM EST [facility] # IG 0.04(H) 0.00 - 0.00 K/uL 12/16/2023 12:52 PM EST [facility] Blood Venipuncture / Unknown 12/16/2023 12:46 PM EST 12/16/2023 12:49 PM EST Narrative [facility] - 12/16/2023 12:52 PM EST When [...] PA-C LAB BLOOD ORDERABLES Final Re sult [facility] [address] [place] [address] documented in this encounter Visit Diagnoses Diagnosis Generalized abdominal pain- Primary Abdominal pain, generalized Diarrhea, unspecified type documented in this encounter Care Teams Didactic Program In Dietetics Director Relationship Specialty Start Date End Date Uyen Hines MD [address] [place] [phone] PCP - General Family Medicine 02/11/23 Gee Quan APRN [address] [place] [address] Nurse Practitioner 02/24/23 documented as of this encounter
--- OUTSIDE RECORDS SUMMARY | 2024-10-19 10:51 | XMS_ITS | Encounter Summary ---
Author Organization [employer] Address [address] [place] [address] Care Team Providers Care Cloud Automation Tester Name Role Phone Uyen Hines MD Primary Care Provider [phone] Gee Quan GENERAL MEDICAL PRACTITIONER Unavailable [phone] Encounter Details Date Type Department Care Team (Latest Contact Info) Description 08/21/2023 Travel Social History Tobacco Use Types Packs/Day [...] Description 12/28/2024 11:00 AM EST Office Visit [facility] Gastroenterology [address] [place] [address] Christopher Mcghee MD [address] [place] [address] documented as of this encounter Visit Diagnoses Not on filedocumented in this encounter Care Teams Cloud Automation Tester Relationship Specialty Start Date End Date Uyen Hines MD [address] [place] [phone] PCP - General Family Medicine 02/11/23 Gee Quan APRN [address] [place] [address] Nurse Practitioner 02/24/23 documented as of this encounter
--- OUTSIDE RECORDS SUMMARY | 2024-10-19 10:52 | XMS_ITS | Encounter Summary ---
Author Organization [employer] Address [address] [place] [address] Care Team Providers Care Semiconductor Wafers Tester Name Role Phone Uyen Hines MD Primary Care Provider [phone] Gee Quan RN L AND D Unavailable [phone] Encounter Details Date Type Department Care Team (Late st Contact Info) Description 01/24/2020 Transcribed Document [facility] [place] [address] [place] [address] ProviderEbony MD [address] [place], [place] [id number] Social History Tobacco Use Types Packs/Day Years Used Date Smoking Tobacco: Never Assessed Comments Unknown Sex and Gender Information Value Date Recorded Sex Assigned at Not on file Legal Sex Female 5:55 PM CDT Gender Identity Not on file Sexual Orientation Not on file documented as of this encounter Miscellaneous Notes * Cerner Conversion Note - Ebony ProviderMD - 01/24/2020 5:01 PM [facility]ELLETER Nursing Discharge Summary Entered On: 01/24/2020 17:01 EST Performed On: 01/24/2020 17:01 EST by Landy Spencer Registered Nurse Discharge Documentation Discharge Date/Time : 01/24/2020 17:15 EST Landy Spencer Registered Nurse - 01/24/2020 17:30 EST Patient Disposition, General : Discharge Discharge To : Home with ambulatory/outpatient follow-up Mode Of Departure, General Discharge : Private vehicle Accompanied By, Discharge : Spouse IV Discontinued : Yes Medications Given to Patient : No Personal Belongings With Patient : Yes Prescriptions Given to Patient : No Discharge Instructions Reviewed With, Opportunity For Questions Given : Patient Patient Education Completed : Yes Teaching Method : Explanation, Printed materials, Teach back method Teaching Evaluation : Verbalizes understanding Landy Spencer, Registered Nurse - 01/24/2020 17:01 EST Electronically signed by Meredith, [facility] Conversion Leather Cartridge Belt Maker Cerner at 03/14/2023 6:06 PM CDT documented in this encounter Plan of Treatment Upcoming Encounters Date Type Department Care Team (Late st Contact Info) Description 12/28/2024 11:00 AM EST Office Visit [facility] Gastroenterology [address] [place] [phone] Christopher Mcghee MD [address] [place] [address] documented as of this encounter Visit Diagnoses Not on filedocumented in this encounter Care Teams Semiconductor Wafers Tester Relationship Specialty Start Date End Date Uyen Hines MD [address] [place] [phone] PCP - General Family Medicine 02/11/23 Gee Quan APRN [address] [place] [address] Nurse Practitioner 02/24/23 documented as of this encounter
--- OUTSIDE RECORDS SUMMARY | 2024-10-19 10:52 | XMS_ITS | Encounter Summary ---
Author Organization [facility] Address [address] [place], [place] [id number] Care Team Providers Care Hospice Coordinator Name Role Phone Uyen Hines MD Primary Care Provider [phone] Telma Smith FINISH MIXER Unavailable [phone] Encounter Details Date Type Department Care Team (Late Contact Info) Description 08/26/2024 Telephone [facility] [address], [address] [place] [address] Carmelina Lion RN [facility] Social History Tobacco Use Types Packs/Day Years Used Date Smoking Tobacco: Never Smokeless Tobacco: Never Alcohol Use Standard Drinks/Week Comments Not Currently 0 (1 standard drink = 0.6 oz pur e alcohol) PHQ-2 Answer Date Recorded Patient Health Questionnaire-2 Score 2 07/12/2024 PHQ-2A Answer Date Recorded Patient Health Questionnaire-2 Score 1 06/02/2023 Comments Unknown Sex and Gender Information Value Date Recorded Sex Assigned at Not on file Legal Sex Female 7:35 PM EDT Gender Identity Not on file Sexual Orientation Not on file documented as of this encounter Plan of Treatment Upcoming Encounters Date Type Department Care Team (Late Contact Info) Description 12/21/2024 12:40 PM EST Office Visit [facility] Endocrinology [address], [address] [place] [address] Kajal Smith MD [address] [place] [address] 01/25/2025 3:20 PM EST Office Visit [facility] [employer] [facility] [address], [address] [place] [address] David Winslow MD [address] [place] [address] 03/25/2025 11:20 AM EDT Office Visit [facility] [address], [address] [place] [address] (1), Rigoberto Graves Fellow documented as of this encounter Visit Diagnoses Not on filedocumented in this encounter Additional Health Concerns Assessment Noted Time A fall risk assessment has been complete d for the patient 07/12/2024 3:08 PM EDT A Body Mass Index follow-up plan has been documented for the patient 07/13/2024 4:45 PM EDT documented as of this encounter Care Teams Hospice Coordinator Relationship Specialty Start Date End Date Uyen Hines MD [address] [place] [address] PCP - General 05/31/22 Telma Smith APRN [address] [place] [address] Nurse Practitioner Neurosurgery 09/01/23 documented as of this encounter
--- OUTSIDE RECORDS SUMMARY | 2024-10-19 10:52 | XMS_ITS | Encounter Summary ---
Author Organization [employer] Address [address] [place] [address] Care Team Providers Care Warehouse Supervisor Name Role Phone Uyen Hines MD Primary Care Provider [phone] Gee Quan LEAN FACILITATOR Unavailable [phone] Reason for Visit * Auth/Cert Specialty Diagnoses / Procedures Referred By Christopher yuan Referred To Contact Diagnoses Esophageal dysphagia Eosinophilic esophagitis Esophageal dysphagia,Eosinophilic esophagitis Procedures LA ESOPHAGOGASTRODUODENOSCOPY TRANSORAL DIAGNOSTIC LA EGD TRANSORAL BIOPSY SINGLE/MULTIPLE LA EGD BALLOON DILATION ESOPHAGUS <30 MM DIAM LA EGD REMOVAL TUMOR POLYP/OTHER LESION SNARE TECH EGD (ESOPHAGOGASTRODUODENOSCOPY) [facility] [address] [place] [address] Phone: tel: fax: [facility] [address] [place] [address] Phone: tel: fax: Referral ID Status Reason Start Date Expiration Date Visits Re quested Visits Authorized [id number] 1 1 Encounter Details Date Type Department Care Team (Late st Contact Info) Description 02/24/2023 12:30 PM EDT - 02/24/2023 12:44 PM EDT Surgery [facility] [address] [place] [address] Galen Alvarenga MD [address] [facility] [address] [place] [address] EGD, WITH BALLOON DILATION Social [...] Sign Reading Time Taken Comments Blood Pressure 103/58 02/24/2023 12:40 PM EDT Pulse 62 02/24/2023 12:40 PM EDT Temperature 36.8 ??C (98.2 ??F) 02/24/2023 12:40 PM E DT Respiratory Rate 16 02/24/2023 12:40 PM EDT Oxygen Saturation 99% 02/24/2023 12:40 PM EDT Inhaled Oxygen Concentration - - Weight 113.9 kg (251 lb) 02/24/2023 11:42 AM EDT Height 162.6 cm (5' 4 ) 02/24/2023 11:42 AM EDT Body Mass Index 43.08 02/24/2023 11:42 AM EDT documented in this encounter Medications [...] 2 puffs by mouth via inhaler. 09/25/2022 3 pantoprazole (PROTONIX) 40 MG tablet Take 1 tablet (40 mg total) by mouth 2 (two) times daily. 01/16/2023 4 documented as of this encounter H&P Notes * Galen Alvarenga MD - 02/24/2023 11:55 AM EDT H&P reviewed. The patient was examined and there are no changes to the H&P. Source Note - Josefina Ziegler PA-C - 02/19/2023 8:21 PM EDT Gastroenterology Consult Subjective: Tommy Roa is a 42 y.o. female. Chief Complaint Patient presents with ??? Crohn's Disease HPI Patient seen in consultation. 42-year-old female with history of eosinophilic esophagitis. Old records show EGD performed in 2018 for dysphagia. Biopsies of the esophagus showing greater than 35 eosinophils per high-powered field. She is currently taking Protonix twice a day and using a steroid inhaler and said she is no better.Still feels that food gets stuck and is slow to go down her esophagus. Denies chronic cough. Denies nausea and vomiting. Has not had a food impaction. No weight loss. No Known Allergies Current Outpatient Medications: ??? escitalopram oxalate (LEXAPRO) 20 MG tablet, Take 1 tablet (20 mg total) by mouth., Disp: , Rfl: ??? fluticasone propionate (Flovent HFA) 220 mcg/actuation inhaler, Inhale 2 puffs by mouth via inhaler., Disp: , Rfl: ??? levothyroxine (SYNTHROID, LEVOTHROID) 200 MCG tablet, Take 1 tablet (200 mcg total) by mouth., Disp: , Rfl: ??? ALPRAZolam (XANAX) 1 MG tablet, Take 1 tablet (1 mg total) by mouth 3 (three) times daily as needed. Max Daily Amount: 3 mg, Disp: , Rfl: ??? busPIRone (BUSPAR) 7.5 MG tablet, Take by mouth., Disp: , Rfl: ??? carvediloL (COREG) 6.25 MG tablet, Take 1 tablet (6.25 mg total) by mouth 2 (two) times daily with breakfast and dinner., Disp: , Rfl: ??? lisinopriL (PRINIVIL,ZESTRIL) 10 MG tablet, Take 1 tablet (10 mg total) by mouth in the morning., Disp: , Rfl: ??? pantoprazole (PROTONIX) 40 MG tablet, Take 1 tablet (40 mg total) by mouth in the morning and 1tablet (40 mg total) before bedtime., Disp: , Rfl: Past Medical History: Diagnosis Date ??? Chronic kidney disease ??? Crohn's disease (HCC) ??? Depression ??? Hypertension ??? Hypothyroid ??? Stroke (cerebrum) (HCC) Past Surgical History: Procedure Laterality Date ??? SECTION ??? CHOLECYSTECTOMY ??? COLONOSCOPY ??? HYSTERECTOMY Family History Problem Relation Age of Onset ??? Heart disease Father ??? Colon cancer Maternal Grandmother Social History Tobacco Use ??? Smoking status: Never ??? Smokeless tobacco: Never Substance Use Topics ??? Alcohol use: Never Review of Systems Constitutional: Negative. HENT: Negative. Eyes: Negative. Respiratory: Negative. Cardiovascular: Negative. Gastrointestinal: Dysphagia Endocrine: Negative. Genitourinary: Negative. Musculoskeletal: Negative. Skin: Negative. Allergic/Immunologic: Negative. Neurological: Negative. Hematological: Negative. Psychiatric/Behavioral: Negative. Objective: BP (!) 144/95 Pulse 88 Resp 20 Ht 1.626 m (5' 4 ) Wt 113.9 kg (251 lb) BMI 43.08 kg/m?? Physical Exam Ekcaqia-kwex-tvvnvylsx, well-nourished, no acute distress Skin-warm and dry HEENT-within normal limits Neck-no adenopathy, no thyromegaly Lungs-clear to auscultation Heart-regular in rhythm, no murmur Abdomen-obese soft and nontender, normoactive bowel sounds Extremities-no edema Neuro-awake alert and oriented, no focal deficits, normal gait Assessment: 1. Esophageal dysphagia EGD, Dilation 2. Eosinophilic esophagitis EGD, Dilation Plan: No follow-ups on file. @ENCORDBASIC@ Patient instructions given. 1. Antireflux precautions 2. Continue current medications 3. EGD with plans for biopsy. She may require dilatation at that time. I discussed in depth with her the risk of perforation and that we may not initially dilate her esophagus depending on the findings. She voices her understanding 4. Further recommendations to follow. . Cosigned by Galen Alvarenga MD at 02/21/2023 12:42 PM EDT * Josefina Ziegler PA-C - 02/19/2023 8:21 PM EDT Gastroenterology Consult Subjective: Tommy Roa is a 42 y.o. female. Chief Complaint Patient presents with ??? Crohn's Disease HPI Patient seen in consultation. 42-year-old female with history of eosinophilic esophagitis. Old records show EGD performed in 2018 for dysphagia. Biopsies of the esophagus showing greater than 35 eosinophils per high-powered field. She is currently taking Protonix twice a day and using a steroid inhaler and said she is no better.Still feels that food gets stuck and is slow to go down her esophagus. Denies chronic cough. Denies nausea and vomiting. Has not had a food impaction. No weight loss. No Known Allergies Current Outpatient Medications: ??? escitalopram oxalate (LEXAPRO) 20 MG tablet, Take 1 tablet (20 mg total) by mouth., Disp: , Rfl: ??? fluticasone propionate (Flovent HFA) 220 mcg/actuation inhaler, Inhale 2 puffs by mouth via inhaler., Disp: , Rfl: ??? levothyroxine (SYNTHROID, LEVOTHROID) 200 MCG tablet, Take 1 tablet (200 mcg total) by mouth., Disp: , Rfl: ??? ALPRAZolam (XANAX) 1 MG tablet, Take 1 tablet (1 mg total) by mouth 3 (three) times daily as needed. Max Daily Amount: 3 mg, Disp: , Rfl: ??? busPIRone (BUSPAR) 7.5 MG tablet, Take by mouth., Disp: , Rfl: ??? carvediloL (COREG) 6.25 MG tablet, Take 1 tablet (6.25 mg total) by mouth 2 (two) times daily with breakfast and dinner., Disp: , Rfl: ??? lisinopriL (PRINIVIL,ZESTRIL) 10 MG tablet, Take 1 tablet (10 mg total) by mouth in the morning., Disp: , Rfl: ??? pantoprazole (PROTONIX) 40 MG tablet, Take 1 tablet (40 mg total) by mouth in the morning and 1tablet (40 mg total) before bedtime., Disp: , Rfl: Past Medical History: Diagnosis Date ??? Chronic kidney disease ??? Crohn's disease (HCC) ??? Depression ??? Hypertension ??? Hypothyroid ??? Stroke (cerebrum) (HCC) Past Surgical History: Procedure Laterality Date ??? SECTION ??? CHOLECYSTECTOMY ??? COLONOSCOPY ??? HYSTERECTOMY Family History Problem Relation Age of Onset ??? Heart disease Father ??? Colon cancer Maternal Grandmother Social History Tobacco Use ??? Smoking status: Never ??? Smokeless tobacco: Never Substance Use Topics ??? Alcohol use: Never Review of Systems Constitutional: Negative. HENT: Negative. Eyes: Negative. Respiratory: Negative. Cardiovascular: Negative. Gastrointestinal: Dysphagia Endocrine: Negative. Genitourinary: Negative. Musculoskeletal: Negative. Skin: Negative. Allergic/Immunologic: Negative. Neurological: Negative. Hematological: Negative. Psychiatric/Behavioral: Negative. Objective: BP (!) 144/95 Pulse 88 Resp 20 Ht 1.626 m (5' 4 ) Wt 113.9 kg (251 lb) BMI 43.08 kg/m?? Physical Exam Rflyxho-oefd-yveivnesm, well-nourished, no acute distress Skin-warm and dry HEENT-within normal limits Neck-no adenopathy, no thyromegaly Lungs-clear to auscultation Heart-regular in rhythm, no murmur Abdomen-obese soft and nontender, normoactive bowel sounds Extremities-no edema Neuro-awake alert and oriented, no focal deficits, normal gait Assessment: 1. Esophageal dysphagia EGD, Dilation 2. Eosinophilic esophagitis EGD, Dilation Plan: No follow-ups on file. @ENCORDBASIC@ Patient instructions given. 1. Antireflux precautions 2. Continue current medications 3. EGD with plans for biopsy. She may require dilatation at that time. I discussed in depth with her the risk of perforation and that we may not initially dilate her esophagus depending on the findings. She voices her understanding 4. Further recommendations to follow. . Cosigned by Galen Alvarenga MD at 02/21/2023 12:42 PM EDT Associated attestation - Galen Alvarenga MD - 02/21/2023 11:42 AM CDT I saw this patient with No name on file. reviewed the notes, assessments, and/or procedures performed by Josefina Ziegler - [facility], I concur with her/his documentation of Tommy Torotc. documented in this encounter Plan of Treatment Upcoming Encounters Date Type Department Care Team (Late st Contact Info) Description 12/28/2024 11:00 AM EST Office Visit [facility] Gastroenterology [address] [place] [address] Galen Alvarenga MD [address] [facility] [address] [place] [address] documented as of this encounter Procedures Procedure Name Priority Date/Time Associated Diagnosis Comments TISSUE EXAM [facility] AP Routine 02/24/2023 12:30 PM EDT Esophageal dysphagia Eosinophilic esophagitis EGD, WITH BALLOON DILATION 02/24/2023 12:22 PM EDT Esophageal dysphagia Eosinophilic esophagitis documented in this encounter Results * Tissue Exam (02/24/2023 12:30 PM EDT) Pathologist [facility] AP RESULT See Note: [facility] Comment: [facility] [address] ?[place] ??[address] or [phone] yC Garcia M.D., Community Support Worker PATIENT NAME ? LABORATORY NO[address] [id number] ??KAYLEE, TOMMY ?[id number] ? AGE ? SEX ??SSN ? CLIENT REF # [facility] ? 42 ?1980 ??F ?[id number] DEAN ? REQUESTING M.D. ? ATTENDING M.D. ? COPY TO. [address] ? [place] [address] ?DATE COLLECTED ?DATE RECEIVED ?DATE REPORTED 02/24/2023 ?02/24/2023 ? 02/25/2023 DIAGNOSIS: A. ?? ANTRUM, BIOPSY: Reactive gastropathy No Helicobacter pylori like organisms identified on H&E stained slide No intestinal metaplasia or dysplasia identified B. ?? DUODENUM, BIOPSY: Small bowel mucosa with no significant pathologic abnormality C. ?? ESOPHAGUS, BIOPSY, DISTAL: Squamous mucosa with mild reactive/reflux related changes (up to 5 intraepithelial eosinophils identified) No intestinal metaplasia or dysplasia identified D. ?? ESOPHAGUS, BIOPSY, MID: Squamous mucosa with mild reactive/reflux related changes (up to 17 intraepithelial eosinophils identified), see comment No intestinal metaplasia or dysplasia identified COMMENT: ??The findings are compatible with an evolving/existing eosinophilic esophagitis. CLINICAL HISTORY: Esophageal dysphagia, eosinophilic esophagitis SPECIMENS RECEIVED: A. ??ANTRUM, BIOPSY B. ??DUODENUM, BIOPSY C. ??ESOPHAGUS, BIOPSY, DISTAL D. ??ESOPHAGUS, BIOPSY, MID MICROSCOPIC DESCRIPTION: Tissue blocks are prepared and slides are examined microscopically on all specimens. See diagnosis for details. Professional interpretation rendered by Vero Sanon D.O., F.C.A.P. at [facility], [address] [place] [address]. GROSS DESCRIPTION: A. ??Labeled antrum consists of multiple pieces of nelson soft tissue measuring 1.0 x 0.2 x 0.2 cm in aggregate. ??Submitted entirely in 1 block. ??BKO B. ??Labeled duodenum consists of 3 pieces of nelson soft tissue measuring 0.7 x 0.2 x 0.2 cm in aggregate. ??Submitted entirely in 1 block. C. ??Labeled distal esophagus consists of 2 pieces of beltran soft tissue measuring 0.5 x 0.3 x 0.2 in aggregate submitted entirely in 1 block. Submitted entirely in 1 block. D. ??Labeled mid esophagus biopsy consists of multiple pieces of beltran soft tissue measuring 0.8 x 0.3 x 0.1 cm in aggregate. ??Submitted entirely in 1 block. ??BKO REVIEWED, DIAGNOSED AND ELECTRONICALLY SIGNED BY: Vero Sanon D.O., F.C.A.P. CPT CODES: ??[id number] Tissue PYLORIC ANTRUM STRUCTURE / Unknown 02/24/2023 12:30 PM EDT Tissue specimen (specimen) DUODENAL STRUCTURE / Unknown 02/24/2023 12:30 PM EDT Tissue specimen (specimen) ESOPHAGEAL STRUCTURE / Unknown 02/24/2023 12:34 PM EDT Tissue specimen (specimen) BIOPSY OF ESOPHAGUS / Unknown 02/24/2023 12:34 PM EDT us Galen Alvarenga MD PATHOLOGY/CYTOLOGY ORDERABLES Final Result [facility] [address] [place] [address] documented in this encounter Visit Diagnoses Diagnosis Esophageal dysphagia Dysphagia, pharyngoesophageal phase Eosinophilic esophagitis Anxiety Anxiety state, unspecified CKD (chronic kidney disease), stage III (HCC) Chronic kidney disease, Stage III (moderate) Crohn's disease (HCC) Regional enteritis of unspecified site Depression Depressive disorder, not elsewhere classified Hypertension Unspecified essential hypertension Hypothyroid Unspecified hypothyroidism Migraines Migraine, unspecified, without mention of intractable migraine without mention of status migrainosus Stroke (cerebrum) ([facility]) Unspecified cerebral artery occlusion with cerebral infarction Esophageal dysphagia Dysphagia, pharyngoesophageal phase Eosinophilic esophagitis documented in this encounter Admitting Diagnoses Diagnosis [...] Bag 02/24/2023 11:51 AM EDT 30 mL/hr simethicone (MYLICON) oral drops 40 mg 40 mg As needed, other - see admin instructions, flatulence, Starting on Fri02/24/23 at 1151, Dilue in water prior to injection through water port of scope, Pre-op documented in this encounter Active and Recently Administered Medications Times are shown in EDT. Continuous Medication Order 02/22/2023 02/23/2023 02/24/2023 lactated ringers (LR) infusion Continuous, intravenous, at 30 mL/hr, Starting on Fri02/24/23 at 1230, Pre-op 1151 (New Bag - Prov ider: Eliseo Brody RN)1222 (Continued by Anesthesia - Provider: Corinna Mcdaniels CRNA)1227 (Rate/Dose Change - Provider: Corinna Mcdaniels CRNA)1244 (Anesthesia Volume Adjustment - Provider: Corinna Mcdaniels CRNA) PRN Medication Order 02/22/2023 02/23/2023 02/24/2023 simethicone (MYLICON) oral drops 40 mg 40 mg As needed, other - see admin instructions, flatulence, Starting on Fri02/24/23 at 1151, Dilue in water prior to injection through water port of scope, Pre-op documented in this encounter Care Teams Warehouse Supervisor Relationship Specialty Start Date End Date Uyen Hines MD [address] [place] [phone] PCP - General Family Medicine 02/11/23 Gee Quan APRN [address] [place] [phone] Nurse Practitioner 02/24/23 documented as of this encounter
--- OUTSIDE RECORDS SUMMARY | 2024-10-19 10:52 | XMS_ITS | Encounter Summary ---
Author Organization [facility] In iatives Address [address] [place] [address] Care Team Providers Care Marking Machine Operator Name Role Phone Sinan Hines MD Primary Care Provider [phone] Gee Quan PAINTING MACHINE OPERATOR Unavailable [phone] Encounter Details Date Type Department Care Team (Late st Contact Info) Description 12/11/2020 Transcribed Document [facility] [place] [address] ProviderEbony MD [address] [place] [address] Social History Tobacco Use Types Packs/Day Years Used Date Smoking Tobacco: Never Assessed Comments Unknown Sex and Gender Information Value Date Recorded Sex Assigned at Not on file Legal Sex Female 5:55 PM CDT Gender Identity Not on file Sexual Orientation Not on file documented as of this encounter Miscellaneous Notes * Cerner Conversion Note - Historical ProviderMD - 12/11/2020 4:13 PM [place] [place] [address] TESSIE PAGE :1980 Visit Time:12/11/2020 Your Visit Summary Your Care Team Primary Provider: ANNA MALDONADO Secondary Provider: Your Diagnosis Abdominal pain Abdominal pain Diarrhea Nausea UTI (urinary tract infection) Medical Information You may obtain a copy of your Emergency Department visit from Medical Records by calling the hospital phone number listed above and asking to be directed to the Medical Records Department. If you had special tests, such as EKG???s or X-rays, the interpretation of your tests given to you by the Emergency Department Physician is a preliminary report. Some fractures and illnesses fail to show up on preliminary tests. These will be reviewed again and we will call you if there are any new suggestions. If your symptoms continue notify your physician. After you leave, you should follow the instructions provided. What to do next Follow-Up Appointments Follow Up with SINAN HINES When Within 2 to 3 days Comments Call for follow up appointment. Return to ER for new or worsening symptoms as discussed. Drink plenty of fluids. Where: [address] [place], [place] [id number]- Business (1) Allergies No Known Medication Allergies Immunizations This Visit No Immunizations Found Medications What How Much When Instructions Next Dose cephalexin (Keflex 500 mg oral capsule) 1 Capsule(s) Oral Four Times A Day Duration: 7 Day(s) Pickup at [facility] 1140 dicyclomine (Bentyl 20 mg oral tablet) 1 Tablet(s) Oral Four Times A Day as needed for Abdominal Pain Duration: 7 Day(s) Pickup at [facility] 1140 ondansetron (Zofran 4 mg oral tablet) 1 Tablet(s) Oral Every 8 Hours as needed for Nausea/Vomiting Pickup at [facility] 1140 ALPRAZolam (Xanax 0.5 mg oral tablet) 1 Tablet(s) Oral Two Times A Day as needed for as needed for anxiety amLODIPine (amLODIPine 5 mg oral tablet) Oral Every Day aspirin (aspirin 81 mg oral tablet) 1 Tablet(s) Oral Every Day fluticasone-salmeterol (fluticasone-salmeterol 232 mcg-14 mcg/ inh inhalation powder) 1 Puff(s) Inhalation Two Times A Day levothyroxine (levothyroxine 200 mcg (0.2 mg) oral tablet) 1 Tablet(s) Oral Every Day levothyroxine (levothyroxine 25 mcg (0.025 mg) oral tablet) Oral Every Day metoprolol (metoprolol tartrate) 25 Milligram(s) Oral Two Times A Day nitroglycerin 0.4 Milligram(s) SubLINgual Every 5 minutes as needed for as needed for chest pain omeprazole (omeprazole 40 mg oral delayed release capsule) 1 Capsule(s) Oral Every Day before a meal Pharmacy Information [facility]: [address] [place] [id number] [phone] The home medications listed are only as accurate as the information you provided. Please continue taking all of your medications prescribed by your Primary Care Provider unless specifically told to change or discontinue the medication. Please direct any questions regarding your home medications to your Primary Care Provider. Take your medications faithfully. Do NOT skip medication. Do NOT stop taking medications without the direction of a physician. Carry a list of your medications with you at all times, and take this medication list with you to your first follow up visit. Report any side effects. Avoid herbal remedies unless discussed with your physician. As part of your treatment plan, your physician may have prescribed a limited course of a controlled substance. This medication may be given to help people with moderate or severe pain or for other medical conditions, but there are risks involved with treatment. Common side effects may include nausea, constipation, drowsiness, sweating, itching, dry mouth, and rash. More serious side effects may include cognitive and motor impairment, like problems with thinking, concentrating, alertness, and movement (e.g. slowed reflexes), and driving and operating heavy machinery can be dangerous. It is important for you to talk to your physician if you have these side effects or questions. These controlled substances can produce physical dependence and be habit-forming if taken for an extended period of time, which means that the body has gotten used to them and may experience withdrawal symptoms if they are abruptly stopped. Withdrawal symptoms can include runny nose, sweating, goose bumps, diarrhea, abdominal cramping, rapid heartbeat, difficulty sleeping, and nervousness. Please dispose of unused and medications per pharmacy guidance. Test Results Laboratory or Other Results This Visit (last charted value for your 12/11/2020 visit) Hematology 12/11/2020 11:29 AM WBC: 7.5 K/uL -- Normal range between ( 3.9 and 10.0 ) RBC: 4.74 Million/uL -- Normal range between ( 3.93 and 5.22 ) Hct: 43.3 % -- Normal range between ( 34.1 and 44.9 ) Hgb: 14.6 Gram/dL -- Normal range between ( 11.2 and 15.7 ) Platelet Count: 358 K/uL -- Normal range between ( 163 and 369 ) MCH: 30.8 pg -- Normal range between ( 25.6 and 32.2 ) MCHC: 33.7 Gram/dL -- Normal range between ( 32.3 and 36.5 ) MCV: 91.4 fL -- Normal range between ( 79.0 and 94.8 ) Slide Review: No Eos %: 8.0 % -- Normal range between ( 1.0 and 7.0 ) Mcnairy #: 0.68 K/uL -- Normal range between ( 0.24 and 0.82 ) Eos #: 0.60 K/uL -- Normal range between ( 0.04 and 0.54 ) Mcnairy %: 9.1 % -- Normal range between ( 4.7 and 12.5 ) Baso %: 1.3 % -- Normal range between ( 0.0 and 1.0 ) Baso #: 0.10 K/uL -- Normal range between ( 0.01 and 0.08 ) RDW: 13.5 % -- Normal range between ( 11.6 and 14.4 ) Neut %: 48.3 % -- Normal range between ( 34.0 and 71.0 ) Neut #: 3.59 K/uL -- Normal range between ( 1.56 and 6.13 ) Lymph %: 33.2 % -- Normal range between ( 19.3 and 53.0 ) Lymph #: 2.48 K/uL -- Normal range between ( 1.18 and 3.74 ) MPV: 9.4 fL -- Normal range between ( 9.4 and 12.4 ) IG#: 0 x10(3)/uL IG%: 0 % -- Normal range between ( 0 and 1 ) Urinalysis 12/11/2020 2:27 PM Ur RBC: 0-2 /HPF Urine Nitrite: Negative Urine Leukocyte Esterase: Small Ur Epithelial Cells: 5-10 /HPF Urine Appearance: Clear Urine Glucose Dipstick: Negative Urine Blood Dipstick: Negative Urine Type: U CleanCatch Urine Urobilinogen Dipstick: 1.0 EU/dL -- Normal range between ( 0.2 and 1.0 ) Ur Calcium Oxalate Crystals: Trace Urine Protein Dipstick: Negative Ur Bacteria: Trace Urine Color: Yellow Ur WBC: 5-10 /HPF Urine Ketones Dipstick: Negative Urine pH Dipstick: 6.0 -- Normal range between ( 6.0 and 8.0 ) Urine Bilirubin Dipstick: Negative Urine Specific [place]: 1.009 -- Normal range between ( 1.005 and 1.030 ) Microbiology 12/11/2020 11:29 AM Novel Coronavirus 2019: Negative General Chemistry 12/11/2020 2:27 PM Lipase Level: 120 Units/Liter -- Normal range between ( 73 and 393 ) 12/11/2020 11:29 AM Creatinine Level: 1.17 mg/dL -- Normal range between ( 0.55 and 1.02 ) Sodium Level: 137 mmol/L -- Normal range between ( 136 and 146 ) Potassium Level: 4.0 mmol/L -- Normal range between ( 3.5 and 5.1 ) Chloride Level: 106 mmol/L -- Normal range between ( 102 and 112 ) Carbon Dioxide Level: 27 mmol/L -- Normal range between ( 21 and 32 ) Anion Gap: 8 -- Normal range between ( 9 and 20 ) Bilirubin Total: 0.5 mg/dL -- Normal range between ( 0.2 and 1.3 ) A/G Ratio: 0.8 -- Normal range between ( 1.1 and 2.5 ) ALT: 19 Units/Liter -- Normal range between ( 12 and 78 ) AST: 14 Units/Liter -- Normal range between ( 5 and 37 ) Globulin: 4.4 Gram/dL -- Normal range between ( 1.5 and 4.5 ) Alk Phos: 73 Units/Liter -- Normal range between ( 27 and 136 ) Bun/Creatinine: 6.8 -- Normal range between ( 8.0 and 20.0 ) Calcium Level: 9.6 mg/dL -- Normal range between ( 8.5 and 10.1 ) eGFR : >60 mL/min/1.73m2 eGFR NonAfrican: 52 mL/min/1.73m2 Glucose Level: 92 mg/dL -- Normal range between ( 74 and 106 ) Blood Urea Nitrogen: 8 mg/dL -- Normal range between ( 7 and 22 ) Protein Total: 8.0 Gram/dL -- Normal range between ( 6.4 and 8.2 ) Albumin Level: 3.6 Gram/dL -- Normal range between ( 3.4 and 5.0 ) Education Materials Urinary Tract Infection, Adult A urinary tract infection (UTI) is an infection of any part of the urinary tract. The urinary tract includes the kidneys, ureters, bladder, and urethra. These organs make, store, and get rid of urine in the body. Your health care provider may use other names to describe the infection. An upper UTI affects the ureters and kidneys (pyelonephritis). A lower UTI affects the bladder (cystitis) and urethra (urethritis). What are the causes? Most urinary tract infections are caused by bacteria in your genital area, around the entrance to your urinary tract (urethra). These bacteria grow and cause inflammation of your urinary tract. What increases the risk? You are more likely to develop this condition if: ??? You have a urinary catheter that stays in place (indwelling). ??? You are not able to control when you urinate or have a bowel movement (you have incontinence). ??? You are female and you: ? Use a spermicide or diaphragm for control. ? Have low estrogen levels. ? Are . ??? You have certain genes that increase your risk (genetics). ??? You are sexually active. ??? You take antibiotic medicines. ??? You have a condition that causes your flow of urine to slow down, such as: ? An enlarged prostate, if you are male. ? Blockage in your urethra (stricture). ? A kidney stone. ? A nerve condition that affects your bladder control (neurogenic bladder). ? Not getting enough to drink, or not urinating often. ??? You have certain medical conditions, such as: ? Diabetes. ? A weak disease-fighting system (immunesystem). ? Sickle cell disease. ? Gout. ? Spinal cord injury. What are the signs or symptoms? Symptoms of this condition include: ??? Needing to urinate right away (urgently). ??? Frequent urination or passing small amounts of urine frequently. ??? Pain or burning with urination. ??? Blood in the urine. ??? Urine that smells bad or unusual. ??? Trouble urinating. ??? Cloudy urine. ??? Vaginal discharge, if you are female. ??? Pain in the abdomen or the lower back. You may also have: ??? Vomiting or a decreased appetite. ??? Confusion. ??? Irritability or tiredness. ??? A fever. ??? Diarrhea. The first symptom in older adults may be confusion. In some cases, they may not have any symptoms until the infection has worsened. How is this diagnosed? This condition is diagnosed based on your medical history and a physical exam. You may also have other tests, including: ??? Urine tests. ??? Blood tests. ??? Tests for sexually transmitted infections (STIs). If you have had more than one UTI, a cystoscopy or imaging studies may be done to determine the cause of the infections. How is this treated? Treatment for this condition includes: ??? Antibiotic medicine. ??? Lzjn-pev-sndwtex medicines to treat discomfort. ??? Drinking enough water to stay hydrated. If you have frequent infections or have other conditions such as a kidney stone, you may need to see a health care provider who specializes in the urinary tract (urologist). In rare cases, urinary tract infections can cause sepsis. Sepsis is a life-threatening condition that occurs when the body responds to an infection. Sepsis is treated in the hospital with IV antibiotics, fluids, and other medicines. Follow these instructions at home: Medicines ??? Take greh-wmr-pnoyurb and prescription medicines only as told by your health care provider. ??? If you were prescribed an antibiotic medicine, take it as told by your health care provider. Do not stop using the antibiotic even if you start to feel better. General instructions ??? Make sure you: ? Empty your bladder often and completely. Do not hold urine for long periods of time. ? Empty your bladder after sex. ? Wipe from front to back after a bowel movement if you are female. Use each tissue one time when you wipe. ??? Drink enough fluid to keep your urine pale yellow. ??? Keep all follow-up visits as told by your health care provider. This is important. Contact a health care provider if: ??? Your symptoms do not get better after 1???2 days. ??? Your symptoms go away and then return. Get help right away if you have: ??? Severe pain in your back or your lower abdomen. ??? A fever. ??? Nausea or vomiting. Summary ??? A urinary tract infection (UTI) is an infection of any part of the urinary tract, which includes the kidneys, ureters, bladder, and urethra. ??? Most urinary tract infections are caused by bacteria in your genital area, around the entrance to your urinary tract (urethra). ??? Treatment for this condition often includes antibiotic medicines. ??? If you were prescribed an antibiotic medicine, take it as told by your health care provider. Do not stop using the antibiotic even if you start to feel better. ??? Keep all follow-up visits as told by your health care provider. This is important. This information is not intended to replace advice given to you by your health care provider. Make sure you discuss any questions you have with your health care provider. Document Released: 08/20/2006 Document Revised: 10/28/2019 Document Reviewed: 05/20/2019 [employer] Patient Education ?? 2020 [employer]. Abdominal Pain, Adult Abdominal pain can be caused by many things. Often, abdominal pain is not serious and it gets better with no treatment or by being treated at home. However, sometimes abdominal pain is serious. Your health care provider will do a medical history and a physical exam to try to determine the cause of your abdominal pain. Follow these instructions at home: ??? Take ohte-mht-sqpztyh and prescription medicines only as told by your health care provider. Do not take a laxative unless told by your health care provider. ??? Drink enough fluid to keep your urine clear or pale yellow. ??? Watch your condition for any changes. ??? Keep all follow-up visits as told by your health care provider. This is important. Contact a health care provider if: ??? Your abdominal pain changes or gets worse. ??? You are not hungry or you lose weight without trying. ??? You are constipated or have diarrhea for more than 2???3 days. ??? You have pain when you urinate or have a bowel movement. ??? Your abdominal pain wakes you up at night. ??? Your pain gets worse with meals, after eating, or with certain foods. ??? You are throwing up and cannot keep anything down. ??? You have a fever. Get help right away if: ??? Your pain does not go away as soon as your health care provider told you to expect. ??? You cannot stop throwing up. ??? Your pain is only in areas of the abdomen, such as the right side or the left lower portion of the abdomen. ??? You have bloody or black stools, or stools that look like tar. ??? You have severe pain, cramping, or bloating in your abdomen. ??? You have signs of dehydration, such as: ? Dark urine, very little urine, or no urine. ? Cracked lips. ? Dry mouth. ? Sunken eyes. ? Sleepiness. ? Weakness. This information is not intended to replace advice given to you by your health care provider. Make sure you discuss any questions you have with your health care provider. Document Released: 08/20/2006 Document Revised: 05/30/2017 Document Reviewed: 04/23/2017 [employer] Patient Education ?? 2020 [employer]. Nausea, Adult Nausea is the feeling that you have an upset stomach or that you are about to vomit. Nausea on its own is not usually a serious concern, but it may be an early sign of a more serious medical problem. As nausea gets worse, it can lead to vomiting. If vomiting develops, or if you are not able to drink enough fluids, you are at risk of becoming dehydrated. Dehydration can make you tired and thirsty, cause you to have a dry mouth, and decrease how often you urinate. Older adults and people with other diseases or a weak disease-fighting system (immune system) are at higher risk for dehydration. The main goals of treating your nausea are: ??? To relieve your nausea. ??? To limit repeated nausea episodes. ??? To prevent vomiting and dehydration. Follow these instructions at home: Watch your symptoms for any changes. Tell your health care provider about them. Follow these instructions as told by your health care provider. Eating and drinking ??? Take an oral rehydration solution (ORS). This is a drink that is sold at pharmacies and retail stores. ??? Drink clear fluids slowly and in small amounts as you are able. Clear fluids include water, ice chips, low-calorie sports drinks, and fruit juice that has water added (diluted fruit juice). ??? Eat bland, uvjr-rc-bhhxos foods in small amounts as you are able. These foods include bananas, applesauce, rice, lean meats, toast, and crackers. ??? Avoid drinking fluids that contain a lot of sugar or caffeine, such as energy drinks, sports drinks, and soda. ??? Avoid alcohol. ??? Avoid spicy or fatty foods. General instructions ??? Take ndvh-nkl-vmsrybz and prescription medicines only as told by your health care provider. ??? Rest at home while you recover. ??? Drink enough fluid to keep your urine pale yellow. ??? Breathe slowly and deeply when you feel nauseous. ??? Avoid smelling things that have strong odors. ??? Wash your hands often using soap and water. If soap and water are not available, use hand recreation professor. ??? Make sure that all people in your household wash their hands well and often. ??? Keep all follow-up visits as told by your health care provider. This is important. Contact a health care provider if: ??? Your nausea gets worse. ??? Your nausea does not go away after two days. ??? You vomit. ??? You cannot drink fluids without vomiting. ??? You have any of the following: ? New symptoms. ? A fever. ? A headache. ? Muscle cramps. ? A rash. ? Pain while urinating. ??? You feel light-headed or dizzy. Get help right away if: ??? You have pain in your chest, neck, arm, or jaw. ??? You feel extremely weak or you faint. ??? You have vomit that is bright red or looks like coffee grounds. ??? You have bloody or black stools or stools that look like tar. ??? You have a severe headache, a stiff neck, or both. ??? You have severe pain, cramping, or bloating in your abdomen. ??? You have difficulty breathing or are breathing very quickly. ??? Your heart is beating very quickly. ??? Your skin feels cold and clammy. ??? You feel confused. ??? You have signs of dehydration, such as: ? Dark urine, very little urine, or no urine. ? Cracked lips. ? Dry mouth. ? Sunken eyes. ? Sleepiness. ? Weakness. These symptoms may represent a serious problem that is an emergency. Do not wait to see if the symptoms will go away. Get medical help right away. Call your local emergency services (911 in the [place] Do not drive yourself to the hospital. Summary ??? Nausea is the feeling that you have an upset stomach or that you are about to vomit. Nausea on its own is not usually a serious concern, but it may be an early sign of a more serious medical problem. ??? If vomiting develops, or if you are not able to drink enough fluids, you are at risk of becoming dehydrated. ??? Follow recommendations for eating and drinking and take vvzh-wuw-vukhcux and prescription medicines only as told by your health care provider. ??? Contact a health care provider right away if your symptoms worsen or you have new symptoms. ??? Keep all follow-up visits as told by your health care provider. This is important. This information is not intended to replace advice given to you by your health care provider. Make sure you discuss any questions you have with your health care provider. Document Released: 12/18/2005 Document Revised: 04/20/2019 Document Reviewed: 04/20/2019 [employer] Patient Education ?? 2020 [employer]. Diarrhea, Adult Diarrhea is frequent loose and watery bowel movements. Diarrhea can make you feel weak and cause you to become dehydrated. Dehydration can make you tired and thirsty, cause you to have a dry mouth, and decrease how often you urinate. Diarrhea typically lasts 2???3 days. However, it can last longer if it is a sign of something more serious. It is important to treat your diarrhea as told by your health care provider. Follow these instructions at home: Eating and drinking Follow these recommendations as told by your health care provider: ??? Take an oral rehydration solution (ORS). This is an rcyr-qpy-jzsgshc medicine that helps return your body to its normal balance of nutrients and water. It is found at pharmacies and retail stores. ??? Drink plenty of fluids, such as water, ice chips, diluted fruit juice, and low-calorie sports drinks. You can drink milk also, if desired. ??? Avoid drinking fluids that contain a lot of sugar or caffeine, such as energy drinks, sports drinks, and soda. ??? Eat bland, dhbr-tl-fiqdoe foods in small amounts as you are able. These foods include bananas, applesauce, rice, lean meats, toast, and crackers. ??? Avoid alcohol. ??? Avoid spicy or fatty foods. Medicines ??? Take wvxb-gcn-axadoeu and prescription medicines only as told by your health care provider. ??? If you were prescribed an antibiotic medicine, take it as told by your health care provider. Do not stop using the antibiotic even if you start to feel better. General instructions ??? Wash your hands often using soap and water. If soap and water are not available, use a hand recreation professor. Others in the household should wash their hands as well. Hands should be washed: ? After using the toilet or changing a diaper. ? Before preparing, cooking, or serving food. ? While caring for a sick person or while visiting someone in a hospital. ??? Drink enough fluid to keep your urine pale yellow. ??? Rest at home while you recover. ??? Watch your condition for any changes. ??? Take a warm bath to relieve any burning or pain from frequent diarrhea episodes. ??? Keep all follow-up visits as told by your health care provider. This is important. Contact a health care provider if: ??? You have a fever. ??? Your diarrhea gets worse. ??? You have new symptoms. ??? You cannot keep fluids down. ??? You feel light-headed or dizzy. ??? You have a headache. ??? You have muscle cramps. Get help right away if: ??? You have chest pain. ??? You feel extremely weak or you faint. ??? You have bloody or black stools or stools that look like tar. ??? You have severe pain, cramping, or bloating in your abdomen. ??? You have trouble breathing or you are breathing very quickly. ??? Your heart is beating very quickly. ??? Your skin feels cold and clammy. ??? You feel confused. ??? You have signs of dehydration, such as: ? Dark urine, very little urine, or no urine. ? Cracked lips. ? Dry mouth. ? Sunken eyes. ? Sleepiness. ? Weakness. Summary ??? Diarrhea is frequent loose and watery bowel movements. Diarrhea can make you feel weak and cause you to become dehydrated. ??? Drink enough fluids to keep your urine pale yellow. ??? Make sure that you wash your hands after using the toilet. If soap and water are not available, use hand recreation professor. ??? Contact a health care provider if your diarrhea gets worse or you have new symptoms. ??? Get help right away if you have signs of dehydration. This information is not intended to replace advice given to you by your health care provider. Make sure you discuss any questions you have with your health care provider. Document Released: 10/31/2003 Document Revised: 04/16/2019 Document Reviewed: 04/16/2019 [employer] Patient Education ?? 2020 [employer]. Emergency Awareness and Preventative Care STROKE is an EMERGENCY Every Minute Counts Act FAST and Check for these signs: FACE Does the face look uneven? ARM Does one arm drift down? SPEECH Does their speech sound strange? TIME Call at any sign of stroke Stroke Risk Factors Atrial Fibrillation (irregular heartbeat) Diabetes Family history of stroke Heart Disease Heavy alcohol use High Blood Pressure High Cholesterol Physical inactivity and obesity Smoking Cigarette Smoking The facts are clear, cigarette smoking will shorten your life. Smoking can cause many illnesses along the way. As a healthcare provider, we recommend that you stop smoking. Assistance with quitting is available by contacting 1-951-RCDI-NOW. This is a free resource providing counseling, support, and referral. Or you may contact your personal physician. National Suicide Prevention Lifeline: The National Suicide Prevention Lifeline is a national network of local crisis centers that provides free and confidential emotional support to people in suicidal crisis or emotional distress 24 hours a day, 7 days a week. Don't Wait! Stop a Heart Attack Before it Starts What is a heart attack? A heart attack is damage or to a part of the heart from severely decreased or lack of blood flow to the heart. Over time, arteries can become narrow from the buildup of fat and cholesterol, which is called plaque. The plaque can rupture causing a blood clot to form. When the blood clot forms, the artery can become severely narrowed or completely blocked, causing a heart attack. Heart attack is the leading cause of in the [place]. 85% of muscle damage occurs within the first 2 hours. Delay in the recognition of heart attack symptoms increases the chances of . Know the early symptoms of a heart attack: Nausea Feeling of fullness in chest Jaw Pain Pain that travels down one or both arms Fatigue/being tired Anxiety Back Pain Chest pressure, squeezing, or discomfort Shortness of breath Sweating, or a cold sweat Feeling of impending doom There are unusual signs of a heart attack, too! Women, the elderly, and diabetics may present with atypical symptoms: Fainting/dizziness Weakness Confusion Risk Factors for a Heart Attack Some heart disease risk factors, such as age and family history, cannot be changed. Others, like smoking and lack of exercise, can be changed. Smoking High Cholesterol High Blood Pressure Family History Obesity Age Gender (Males are at higher risk) Lack of Exercise Diabetes Diet Stress Excessive Alcohol Intake If you or someone you know is experiencing the signs and symptoms of a heart attack, DON???T DELAY. Call immediately and seek help. If someone collapses, perform CPR! Do not attempt to drive if you are having symptoms of heart attack. Hands-Only CPR Why Hands-Only CPR? Hands-Only CPR has been shown to be as effective as conventional CPR for cardiac arrests that occur outside of a hospital. Survival depends on immediately receiving CPR from someone nearby. How do you perform Hands-Only CPR? There are two easy steps: Call if you see a teen or adult collapse Push hard and fast in the center of the chest at a beat of 100 beats per minute. Save a life! 4 WAYS TO GET AHEAD OF SEPSIS SEPSIS is a MEDICAL EMERGENCY. Time matters! Infections put you and your family at risk for a life-threatening condition called sepsis. Sepsis is the body's extreme response to an infection. It is life-threatening, and without timely treatment, sepsis can rapidly lead to tissue damage, organ failure, and . Sepsis happens when an infection you already have-in your skin, lungs, urinary tract or somewhere else-triggers a chain reaction throughout your body. 1 PREVENT INFECTIONS Take good care of chronic conditions. Talk to your doctor about getting the recommended vaccines. 2 PRACTICE GOOD HYGIENE Wash your hands frequently. Keep cuts or open sores clean and covered until they are healed. 3 KNOW THE SYMPTOMS Confusion or disorientation Shortness of breath High heart rate Fever, shivering, or feeling very cold Extreme pain or discomfort Clammy or sweaty skin 4 ACT FAST Get medical care IMMEDIATELY if you suspect sepsis or if you have an infection that is not getting better or is getting worse. To learn more about sepsis and how to prevent infections, visit www.cdc.gov/sepsis. The examination and treatment you have received in the Emergency Department has been done to provide an appropriate evaluation and stabilizing treatment on an emergency basis only. Given the limited resources, it is not meant to be a substitute for complete medical care. The follow-up doctor you named will receive a copy of your records and all test reports. IT IS IMPORTANT THAT YOU SCHEDULE A FOLLOW-UP APPOINTMENT AND ARE RE-EVALUATED. You should report any new complaints, symptoms, or remaining problems at that time. IT IS IMPOSSIBLE FOR THE EMERGENCY DEPARTMENT TO RECOGNIZE AND TREAT ALL ELEMENTS OF INJURY OR ILLNESS IN A SINGLE VISIT. If you have been referred to a specialist physician, it means that we believe you may have a condition that requires the expertise of a specialist. These physicians work in partnership with the hospital and have agreed to see referred patients in their office for further evaluation. KEEP IN MIND THAT THE SPECIALIST HAS HIS/HER OWN OFFICE POLICIES WHICH MAY REQUIRE PROPER INSURANCE OR PAYMENT UP FRONT BEFORE THE SPECIALIST WILL SEE YOU. It is your responsibility to call the specialist physician to make an appointment. We do not have the ability to refer patients to specialists/physicians that work with specific insurance companies. Please be advised that all financial charges or billing practices are determined by that practice, not the hospital. If your insurance company requires that you see a specialist from their approved list, it is your responsibility to contact your insurance company to make those arrangements. It is also your responsibility to follow any other requirements of your insurance company necessary to obtain coverage for claims submitted. We will bill your insurance; however, you are responsible today for any co-pay amounts. You will receive a separate bill for any services you may have received including: emergency, radiology, or pathology physicians. Patient Name:TESSIE PAGE I have received this information and was given the opportunity to ask questions. Patient/Shovel Log Loader Operator Name: Patient/Shovel Log Loader Operator Signature: Relationship to Patient: Clinician/Hospital Shovel Log Loader Operator Signature: Please Provide a Telephone Number Where You Can Be Reached: Is it Permissible To Leave a Message? Date: documented in this encounter Plan of Treatment Upcoming Encounters Date Type Department Care Team (Late st Contact Info) Description 12/28/2024 11:00 AM EST Office Visit [facility] Gastroenterology [address] [place] [address] Christopher Mcghee MD [address] [place] [address] documented as of this encounter Visit Diagnoses Not on filedocumented in this encounter Care Teams Marking Machine Operator Relationship Specialty Start Date End Date Sinan Hines MD [address] [address] PCP - General Family Medicine 02/11/23 Gee Quan, CAMEL[address] [place] [address] Nurse Practitioner 02/24/23 documented as of this encounter
--- OUTSIDE RECORDS SUMMARY | 2024-10-19 10:52 | XMS_ITS | Encounter Summary ---
Author Organization [facility] Address [address] [place] [address] Care Team Providers Care Integrated Logistics Programs Director Name Role Phone Uyen Hines MD Primary Care Provider [phone] Telma Smith APRN Unavailable [phone] Encounter Details Date Type Department Care Team (Latest Contact Info) Description 09/24/2024 Travel Social History Tobacco Use Types Packs/Day [...] Care Team (Late st Contact Info) Description 12/21/2024 12:40 PM EST Office Visit [facility] Endocrinology [address] [place] [address] Kajal Smith MD [address] [place] [address] 01/25/2025 3:20 PM EST Office Visit [facility] Nephrology, Bone & Mineral Metabolism [address] [facility], [address] [place] [address] David Winslow MD [address] [facility] [address] [place] [address] 03/25/2025 11:20 AM EDT [facility] Visit [facility] [address], [address] [place] [address] (1), Rigoberto Graves Fellow documented as of this encounter Visit Diagnoses Not on filedocumented in this encounter Additional Health Concerns Assessment Noted Time A fall risk assessment has been complete d for the patient 07/12/2024 3:08 PM EDT A Body Mass Index follow-up plan has been documented for the patient 09/24/2024 10:43 AM EDT documented as of this encounter Care Teams Integrated Logistics Programs Director Relationship Specialty Start Date End Date Uyen Hines MD [address] [place] [address] PCP - General 05/31/22 Telma Smith APRN [address] [facility] [address] [place] [address] Nurse Practitioner Neurosurgery 09/01/23 documented as of this encounter
--- OUTSIDE RECORDS SUMMARY | 2024-10-19 10:52 | XMS_ITS | Encounter Summary ---
Author Organization [employer] Address [address] [place] [address] Care Team Providers Care Case Worker Name Role Phone Sinan Hines MD Primary Care Provider [phone] Gee Quan INDUSTRIAL MAINTENANCE TECH Unavailable [phone] Encounter Details Date Type Department Care Team (Late st Contact Info) Description 12/11/2020 Transcribed Document [facility] Family [place] [address] ProviderEbony MD [address] [place] [id number] Social History Tobacco Use Types Packs/Day Years Used Date Smoking Tobacco: Never Assessed Comments Unknown Sex and Gender Information Value Date Recorded Sex Assigned at Not on file Legal Sex Female 5:55 PM CDT Gender Identity Not on file Sexual Orientation Not on file documented as of this encounter Miscellaneous Notes * Cerner Conversion Note - Historical ProviderMD - 12/11/2020 2:07 PM BOTTOM CRANE OPERATOR Patient: TESSIE PAGE Age: 40 years Sex: Female : 1980 Associated Diagnoses: Abdominal pain; Nausea; Diarrhea; UTI (urinary tract infection) Author: ANNA MALDONADO PA Basic Information Time seen: Date & time 12/11/2020 14:07:00. History source: Patient. Arrival mode: Private vehicle. History limitation: None. Additional information: Chief Complaint from Nursing Triage Note : Chief Complaint 12/11/2020 11:26 EST Chief Complaint Pt c/o abd pain x 10 days, pelvic pain, n/v/d, fatigue, has had hysterectomy. (Modified) . History of Present Illness Patient is a 40 yo female with PMHx HTN, CKD, hypothyroidism who presents today with abdominal pain x 3 days. Patient reports that for the past 10 days she has been feeling fatigued and nauseated. 3 days ago she began having lower abdominal pain with scattered episodes of diarrhea and vomiting today. She denies fever, SOA, cough, chest pain, dysuria, COVID-19 exposure. Review of Systems Constitutional symptoms: Negative except as documented in HPI. Skin symptoms: Negative except as documented in HPI. Eye symptoms: Negative except as documented in HPI. ENMT symptoms: Negative except as documented in HPI. Respiratory symptoms: Negative except as documented in HPI. Cardiovascular symptoms: Negative except as documented in HPI. Gastrointestinal symptoms: Negative except as documented in HPI. Genitourinary symptoms Musculoskeletal symptoms: Negative except as documented in HPI. Neurologic symptoms: Negative except as documented in HPI. Psychiatric symptoms: Negative except as documented in HPI. Health Status Allergies: Allergic Reactions (All) No Known Medication Allergies. Medications: (Selected) Documented Medications Documented Xanax 0.5 mg oral tablet: 1 Tab, Oral, BID, PRN: as needed for anxiety, 0 Refill(s) amLODIPine 5 mg oral tablet: Tab, Oral, Daily, 0 Refill(s) aspirin 81 mg oral tablet: 1 Tab, Oral, Daily, 30 Tab, 0 Refill(s) fluticasone-salmeterol 232 mcg-14 mcg/inh inhalation powder: 1 Puff, Inhalation, BID, 1 Each, 0 Refill(s) levothyroxine 200 mcg (0.2 mg) oral tablet: 1 Tab, Oral, Daily, 60 Tab, 0 Refill(s) levothyroxine 25 mcg (0.025 mg) oral tablet: Tab, Oral, Daily, 0 Refill(s) metoprolol tartrate: 25 mg, Oral, BID, 0 Refill(s) nitroglycerin: 0.4 mg, SubLINgual, Q5Min, PRN: as needed for chest pain, 0 Refill(s) omeprazole 40 mg oral delayed release capsule: 1 Cap, Oral, Daily, before a meal, 30 Cap, 0 Refill(s). Past Medical/ Family/ Social History Surgical history: complete hysterectomy on 06/16/2017 at 36 Years.\.br&T.br.br.brTC X2. cholecystectomy. X1.. Family history: No family history items have been selected or recorded.. Social history: Social & Psychosocial Habits Alcohol 06/11/2017 Alcohol Use History, Social Habits No Substance Abuse 06/11/2017 Recreational Drug Use History No Tobacco 06/11/2017 Smoking Status Never smoker . Problem list: Active Problems (4) Anxiety GERD - Gastro-esophageal reflux disease Hypothyroid Obesity . Physical Examination Vital Signs Vital Measurements 12/11/2020 16:00 EST Systolic Blood Pressure 131 mmHg Diastolic Blood Pressure 92 mmHg HI Mean Arterial Pressure (MAP)-BMDI 108 Heart Rate Monitored 67 bpm Respiratory Rate 18 Breaths/Min Oxygen Saturation 99 % 12/11/2020 15:00 EST Systolic Blood Pressure 122 mmHg Diastolic Blood Pressure 81 mmHg Mean Arterial Pressure (MAP)-BMDI 97 Heart Rate Monitored 64 bpm Respiratory Rate 20 Breaths/Min Oxygen Saturation 100 % Oxygen Therapy Mode Room air 12/11/2020 14:00 EST Systolic Blood Pressure 130 mmHg Diastolic Blood Pressure 76 mmHg Peripheral Pulse Rate 67 bpm Respiratory Rate 20 Breaths/Min Oxygen Saturation 100 % Oxygen Therapy Mode Room air 12/11/2020 13:00 EST Systolic Blood Pressure 127 mmHg Diastolic Blood Pressure 63 mmHg Peripheral Pulse Rate 88 bpm Respiratory Rate 18 Breaths/Min Oxygen Saturation 100 % Oxygen Therapy Mode Room air 12/11/2020 11:26 EST Systolic Blood Pressure 127 mmHg Diastolic Blood Pressure 89 mmHg Temperature Source Temporal artery scanning Temperature Mode Fahrenheit Temperature, Fahrenheit 97.0 Deg F Clinical Temperature, C 36.1 Deg C Peripheral Pulse Rate 99 bpm Respiratory Rate 18 Breaths/Min Oxygen Saturation 98 % Oxygen Therapy Mode Room air . Oxygen saturation. General: Alert, no acute distress. Skin: Warm. Head: Normocephalic. Neck: Supple. Eye: Sclera: not icteric. Ears, nose, mouth and throat: Oral mucosa moist. Cardiovascular: Regular rate and rhythm, No murmur, Normal peripheral perfusion, No edema. Respiratory: Lungs are clear to auscultation, respirations are non-labored, breath sounds are equal. Chest wall: No tenderness. Back: Nontender. Gastrointestinal: Soft, Non distended, Normal bowel sounds, Tenderness: Suprapubic, left lower quadrant, Guarding: Negative, Rebound: Negative. Neurological: Alert and oriented to person, place, time, and situation, No focal neurological deficit observed. Lymphatics: No lymphadenopathy. Psychiatric: Cooperative. Medical Decision Making Results review: Lab results : Lab Results 12/11/2020 14:27 EST Lipase Level 120 Units/Liter Urine Type U CleanCatch Urine Color Yellow Urine Appearance Clear Urine Specific Kelley 1.009 Urine pH Dipstick 6.0 Urine Leukocyte Esterase Small Urine Nitrite Negative Urine Protein Dipstick Negative Urine Glucose Dipstick Negative Urine Ketones Dipstick Negative Urine Urobilinogen Dipstick 1.0 EU/dL Urine Bilirubin Dipstick Negative Urine Blood Dipstick Negative Ur RBC 0-2 /HPF Ur WBC 5-10 /HPF Ur Bacteria Trace Ur Epithelial Cells 5-10 /HPF Ur Calcium Oxalate Crystals Trace 12/11/2020 11:29 EST Sodium Level 137 mmol/L Potassium Level 4.0 mmol/L Chloride Level 106 mmol/L Carbon Dioxide Level 27 mmol/L Anion Gap 8 LOW Glucose Level 92 mg/dL Blood Urea Nitrogen 8 mg/dL Creatinine Level 1.17 mg/dL HI eGFR >60 mL/min/1.73m2 eGFR NonAfrican 52 mL/min/1.73m2 LOW Bun/Creatinine 6.8 LOW Calcium Level 9.6 mg/dL Protein Total 8.0 Gram/dL Albumin Level 3.6 Gram/dL Globulin 4.4 Gram/dL A/G Ratio 0.8 LOW Bilirubin Total 0.5 mg/dL Alk Phos 73 Units/Liter AST 14 Units/Liter ALT 19 Units/Liter WBC 7.5 K/uL RBC 4.74 Million/uL Hgb 14.6 Gram/dL Hct 43.3 % MCV 91.4 fL MCH 30.8 pg MCHC 33.7 Gram/dL Platelet Count 358 K/uL MPV 9.4 fL RDW 13.5 % Neut % 48.3 % Neut # 3.59 K/uL Lymph % 33.2 % Lymph # 2.48 K/uL [place] % 9.1 % [place] # 0.68 K/uL Eos % 8.0 % HI Eos # 0.60 K/uL HI Baso % 1.3 % HI Baso # 0.10 K/uL HI Slide Review No IG# 0 x10(3)/uL IG% 0 % Novel Coronavirus 2019 Negative . Radiology results: Radiology Results (Last 48 hours) [id number] -- 12/11/2020 11:12 CT Abdomen Pelvis W (12/11/2020 14:47) Result: CT SCAN OF THE ABDOMEN AND PELVIS WITH CONTRAST 12/11/2020 1:09 PM HISTORY: Left lower quadrant pain.COMPARISON: June 2017.PROCEDURE: The patient was injected with IV contrast. Axial imageswere obtained from the lung bases to the pubic symphysis by computedtomography. This study was performed with techniques to keep radiationdoses as low as reasonably achievable, (ALARA). Individualized dosereduction techniques using automated exposure control or adjustment ofmA and/or kV according to the patient size were employed.FINDINGS: ABDOMEN: The previously noted nodule at the right lung base is nowpartially calcified and likely benign. The heart is normal in size. Theliver is homogenous with no focal abnormality. The bladder is absent.The spleen is unremarkable. No adrenal mass is present. The pancreas isunremarkable. The kidneys are unremarkable, without evidence of mass orhydronephrosis. The aorta is normal in caliber. There is no free fluidor adenopathy. PELVIS: The GI tract demonstrates no obstruction. The appendix is notidentified. The urinary bladder is unremarkable. There is no free fluid,adenopathy, or inflammatory process. The patient is status posthysterectomy.IMPRESSION: No acute intra-abdominal process. Images reviewed, interpreted, and dictated by Dr. Doc Antonio.Transcribed by Odilia Mcfadden (R).I have personally viewed, interpreted and dictated the examination. Ihave read and agree with the above final transcribed report. . Reexamination/ Reevaluation Patient remains afebrile and hemodynamically stable. Unable to give stool sample in ED. WBC 7, CT A/P unremarkable. We discussed return precautions and follow up. Impression and Plan Diagnosis Abdominal pain - Discharge, Medical Nausea - Discharge, Medical Diarrhea - Discharge, Medical UTI (urinary tract infection) - Discharge, Medical Plan Condition: Improved, Stable. Disposition: Discharged Admit/Transfer/Discharge: Discharge (Order): Start: 12/11/2020 16:11 EST, Discharge to: Home. Prescriptions: Prescription [facility]: Keflex 500 mg oral capsule (Prescribe): 1 Cap, Oral, QID, for 7 Day(s), 28 Cap, 0 Refill(s) Zofran 4 mg oral tablet (Prescribe): 1 Tab, Oral, Q8H, PRN: Nausea/Vomiting, 15 Tab, 0 Refill(s) Bentyl 20 mg oral tablet (Prescribe): 1 Tab, Oral, QID, for 7 Day(s), PRN: Abdominal Pain, 30 Tab, 0 Refill(s). Patient was given the following educational materials: Diarrhea, Adult, Nausea, Adult, Abdominal Pain, Adult, Urinary Tract Infection, Adult. Follow up with: SINAN HINES Within 2 to 3 days Call for follow up appointment. Return to ER for new or worsening symptoms as discussed. Drink plenty of fluids., SINAN HINES Within 2 to 3 days Call for follow up appointment. Return to ER for new or worsening symptoms as discussed. Drink plenty of fluids.. Counseled: Patient, Regarding diagnosis, Regarding diagnostic results, Regarding treatment plan, Regarding prescription, Patient indicated understanding of instructions. documented in this encounter Plan of Treatment Upcoming Encounters Date Type Department Care Team (Late st Contact Info) Description 12/28/2024 11:00 AM EST Office Visit [facility] Gastroenterology [address] [place] [address] Christopher Mcghee MD [address] [facility] [address] [place] [address] documented as of this encounter Visit Diagnoses Not on filedocumented in this encounter Care Teams Case Worker Relationship Specialty Start Date End Date Sinan Hines MD [address] [place] [phone] PCP - General Family Medicine 02/11/23 Gee Quan APRN [address] [place] [address] Nurse Practitioner 02/24/23 documented as of this encounter
--- OUTSIDE RECORDS SUMMARY | 2024-10-19 10:52 | XMS_ITS | Encounter Summary ---
Author Organization [employer] Address [address] [place] [address] Care Team Providers Care Director Government Name Role Phone Uyen Hines MD Primary Care Provider [phone] Reason for Visit * Reason Comments Crohn's Disease Encounter Details Date Type Department Care Team (Late st Contact Info) Description 02/11/2023 9:30 AM EDT Office Visit [facility] Gastroenterology [address] [place] [address] Galen Alvarenga MD [address] [facility] [address] [place] [address] Esophageal dysphagia (Primary Dx); Eosinophilic esophagitis Social History Tobacco Use Types [...] Sign Reading Time Taken Comments Blood Pressure 144/95 02/11/2023 9:25 AM EDT Pulse 88 02/11/2023 9:25 AM EDT Temperature - - Respiratory Rate 20 02/11/2023 9:25 AM EDT Oxygen Saturation - - Inhaled Oxygen Concentration - - Weight 113.9 kg (251 lb) 02/11/2023 9:25 AM EDT Height 162.6 cm (5' 4 ) 02/11/2023 9:25 AM EDT Body Mass Index 43.08 02/11/2023 9:25 AM EDT documented in this encounter Progress Notes * Galen Alvarenga MD - 02/11/2023 9:30 AM EDT Gastroenterology Consult Subjective: Tessie Roa is a 42 y.o. female. Chief [...] (251 lb) BMI 43.08 kg/m?? Physical Exam Cnrvysi-bkyp-osquhhroq, well-nourished, no acute distress Skin-warm and dry [...] understanding 4. Further recommendations to follow. . documented in this encounter Plan of Treatment Upcoming Encounters Date Type Department Care Team (Late st Contact Info) Description 12/28/2024 11:00 AM EST Office Visit [facility] Gastroenterology [address] [place] [address] Galen Alvarenga MD [address] [place] [address] documented as of this encounter Visit Diagnoses Diagnosis Esophageal dysphagia- Primary Dysphagia, pharyngoesophageal phase Eosinophilic esophagitis documented in this encounter Care Teams Director Government Relationship Specialty Start Date End Date Uyen Hines MD [address] [place] [phone] PCP - General Family Medicine 02/11/23 documented as of this encounter
--- OUTSIDE RECORDS SUMMARY | 2024-10-19 10:52 | XMS_ITS | Encounter Summary ---
Author Organization [employer] [facility] [employer] Address [address] [place] [address] Care Team Providers Care Batch And Furnace Manager Name Role Phone Uyen Hines MD Primary Care Provider [phone] Gee Quan EMPLOYMENT COORDINATOR Unavailable [phone] Encounter Details Date Type Department Care Team (Late st Contact Info) Description 12/11/2020 Transcribed Document [facility] Family Medicine [facility] [place] [address] ProviderEbony MD [address] [place] [address] Social History Tobacco Use Types Packs/Day Years Used Date Smoking Tobacco: Never Assessed Comments Unknown Sex and Gender Information Value Date Recorded Sex Assigned at Not on file Legal Sex Female 5:55 PM CDT Gender Identity Not on file Sexual Orientation Not on file documented as of this encounter Miscellaneous Notes * Cerner Conversion Note - Historical ProviderMD - 12/11/2020 11:12 AM AUDIO VIDEO MECHANIC ED Assessment Entered On: 12/11/2020 14:33 EST Performed On: 12/11/2020 14:05 EST by NANNETTE DOMINGUEZ, AUTOMATIC SPINNING LATHE OPERATOR Quick Look Assessment Level of Consciousness : Alert, Awake Affect/Behavior : Appropriate, Calm Orientation : Oriented x 4 Skin Temperature : Warm NANNETTE DOMINGUEZ RN - 12/11/2020 14:31 EST ED General-Functional Assess Information Obtained From : Patient Preferred Communication Mode : Verbal Communication Barrier : None Primary Language : Peruvian Any Spiritual/Cultural Needs or Requests : No Currently in Unsafe Situation : No NANNETTE DOMINGUEZ RN - 12/11/2020 14:31 EST Social Habits Smoking Status : Never (less than 100 in lifetime; none in last 30 days) Smokeless Tobacco Status : Never Desires Tobacco Cessation Calc : 0 NANNETTE DOMINGUEZ SID Hall - 12/11/2020 14:31 EST Social History (As Of: 12/11/2020 14:33:19 EST) Tobacco: Smoking Status Never smoker. (Last Updated: 06/11/2017 14:29:54 EDT by Marya Joshi Rn) Alcohol: Alcohol Use History No. (Last Updated: 06/11/2017 14:29:58 EDT by Marya Joshi Rn) Substance Abuse: Drug Use Hx: No. (Last Updated: 06/11/2017 14:30:05 EDT by Marya Joshi Rn) Cardiovascular ASMT, ED Cardiovascular Assessment WDL : WDL Cardiovascular Symptoms : None Heart Rhythm : Regular NANNETTE DOMINGUEZ RN - 12/11/2020 14:31 EST Pulses Grid Radial Pulse, Left : 2+ normal Radial Pulse, Right : 2+ normal NANNETTE DOMINGUEZ RN - 12/11/2020 14:31 EST Respiratory Breath Sounds Auscultated : Posterior, Anterior Respiratory Assessment WDL : WDL Cough : None NANNETTE DOMINGUEZ RN - 12/11/2020 14:31 EST Breath Sounds Assessment Grid All Lobes Breath Sounds : Clear ANGELICANANNETTE FORD SID Hall - 12/11/2020 14:31 EST Respiratory Pattern Description : Regular ANGELICA NANNETTE SID Hall - 12/11/2020 14:31 EST Gastrointestinal ED Gastrointestinal Assessment WDL : WDL with exceptions (Comment: pt reports to the ED for c/o abd pain and vomiting. pt states she has been hurting for about 10 days. pt has progressively gotten worse, denies any history of GI problems. pt states she has had decrweased appetite and has been vomiting as well, i haven't been able to keep anything down [ANGELICA NANNETTE Isabel, SID - 12/11/2020 14:31 EST] ) Gastrointestinal Symptoms : Abdominal pain, Nausea NANNETTE DOMINGUEZ RN - 12/11/2020 14:31 EST Bowel Sounds Bowel Sounds All Quadrants : Active NANNETTE DOMINGUEZ RN - 12/11/2020 14:31 EST Abdomen Palpation : Tender NANNETTE DOMINGUEZ RN - 12/11/2020 14:31 EST Neurologic ASMT, ED Neurologic Assessment WDL : WDL Neurological Symptoms : None Level of Consciousness : Alert, Awake Affect/Behavior : Appropriate, Calm Orientation : Oriented x 4 NANNETTE DOMINGUEZ RN - 12/11/2020 14:31 EST Electronically signed by [facility] Conversion Casting And Locker Room Servicer Cerner at 03/14/2023 6:07 PM CDT documented in this encounter Plan of Treatment Upcoming Encounters Date Type Department Care Team (Late st Contact Info) Description 12/28/2024 11:00 AM EST Office Visit [facility] Gastroenterology [address] [place] [address] Christopher Mcghee MD [address] [place] [address] documented as of this encounter Visit Diagnoses Not on filedocumented in this encounter Care Teams Batch And Furnace Manager Relationship Specialty Start Date End Date Uyen Hines MD [address] [place] [address] PCP - General Family Medicine 02/11/23 Gee Quan APRN [address] [place] [address] Nurse Practitioner 02/24/23 documented as of this encounter
--- OUTSIDE RECORDS SUMMARY | 2024-10-19 10:52 | XMS_ITS | Encounter Summary ---
Author Organization [employer] Address [address] [place] [address] Care Team Providers Care Horse Doctor Name Role Phone Uyen Hines MD Primary Care Provider [phone] Gee Quan SCOREKEEPER Unavailable Encounter Details Date Type Department Care Team (Late st Contact Info) Description 12/11/2020 Transcribed Document [facility] Family [place] [address] ProviderEbony MD [address] [place] [phone] Social History Tobacco Use Types Packs/Day Years Used Date Smoking Tobacco: Never Assessed Comments Unknown Sex and Gender Information Value Date Recorded Sex Assigned at Not on file Legal Sex Female 5:55 PM CDT Gender Identity Not on file Sexual Orientation Not on file documented as of this encounter Miscellaneous Notes * Cerner Conversion Note - Ebony ProviderMD - 12/11/2020 4:19 PM DATASTAGE CONSULTANT ED Discharge Entered On: 12/11/2020 16:19 EST Performed On: 12/11/2020 16:19 EST by NANNETTE DOMINGUEZ, filler wiper Process Patient Disposition : Discharge Personal Belongings With Patient : Yes Patient Education Completed : Yes Teaching Evaluation : Verbalizes understanding IV Discontinued : Yes Nursing Documentation Completed : Yes NANNETTE DOMINGUEZ, RN - 12/11/2020 16:19 EST ED Discharge Discharge To : Home with ambulatory/outpatient follow-up Mode Of Departure : Ambulatory Discharge Instructions Reviewed With, Opportunity For Questions Given : Patient Prescriptions Given to Patient : Electronically sent Number of Prescriptions Given : 3 NANNETTE DOMINGUEZ RN - 12/11/2020 16:19 EST Electronically signed by Meredith [facility] Conversion Sustainability Analyst Cerner at 03/14/2023 6:10 PM CDT documented in this encounter Plan of Treatment Upcoming Encounters Date Type Department Care Team (Late st Contact Info) Description 12/28/2024 11:00 AM EST Office Visit [facility] Gastroenterology [address] [place] [address] Christopher Mcghee MD [address] [facility] [address] [place] [address] documented as of this encounter Visit Diagnoses Not on filedocumented in this encounter Care Teams Horse Doctor Relationship Specialty Start Date End Date Uyen Hines MD [address] [place] [address] PCP - General Family Medicine 02/11/23 Gee Quan, CAMELIA [address] [place] [address] Nurse Practitioner 02/24/23 documented as of this encounter
--- OUTSIDE RECORDS SUMMARY | 2024-10-19 10:52 | XMS_ITS | Encounter Summary ---
Author Organization [employer] Address [address] [place] [address] Care Team Providers Care Camp Director Name Role Phone Uyen Hines MD Primary Care Provider [phone] Gee Quan AGRICULTURAL AIRCRAFT PILOT Unavailable [phone] Reason for Visit * Auth/Cert Specialty Diagnoses / Procedures Referred By Christopher yuan Referred To Contact Diagnoses Esophageal dysphagia Eosinophilic esophagitis Esophageal dysphagia,Eosinophilic esophagitis Procedures DE ESOPHAGOGASTRODUODENOSCOPY TRANSORAL DIAGNOSTIC DE EGD TRANSORAL BIOPSY SINGLE/MULTIPLE DE EGD BALLOON DILATION ESOPHAGUS <30 MM DIAM DE EGD REMOVAL TUMOR POLYP/OTHER LESION SNARE TECH EGD (ESOPHAGOGASTRODUODENOSCOPY) [facility] [address] [place] [address] Phone: tel: fax: [facility] [address] [place] [address] Phone: tel: fax: Referral ID Status Reason Start Date Expiration Date Visits Re quested Visits Authorized [id number] 1 1 Encounter Details Date Type Department Care Team (Latest Contact Info) Description 02/24/2023 11:26 AM EDT - 02/24/2023 1:24 PM EDT Hospital Encounter [facility] [address] [place] [address] Galen Alvarenga MD [address] [facility] [address] [place] [address] Esophageal dysphagia; Eosinophilic esophagitis Discharge Disposition: Home or Self Care Social [...] Sign Reading Time Taken Comments Blood Pressure 87/51 02/24/2023 1:10 PM EDT Pulse 55 02/24/2023 1:10 PM EDT Temperature 36.8 ??C (98.2 ??F) 02/24/2023 12:40 PM E DT Respiratory Rate 14 02/24/2023 1:10 PM EDT Oxygen Saturation 96% 02/24/2023 1:10 PM EDT Inhaled Oxygen Concentration - - [...] 02/19/2023 8:21 PM EDT Gastroenterology Consult Subjective: Tessie Page is a 42 y.o. female. Chief Complaint [...] (251 lb) BMI 43.08 kg/m?? Physical Exam Jirpway-nwoh-jxbozmeky, well-nourished, no acute distress Skin-warm and dry [...] 02/19/2023 8:21 PM EDT Gastroenterology Consult Subjective: Tessie Page is a 42 y.o. female. Chief Complaint [...] (251 lb) BMI 43.08 kg/m?? Physical Exam Wnnhwvj-ijok-ehcpxyvya, well-nourished, no acute distress Skin-warm and dry [...] procedures performed by Josefina Ziegler - [facility], I concur with her/his documentation of Tessie Torotc. documented in this encounter Plan of Treatment Upcoming Encounters Date Type Department Care Team (Late st Contact Info) Description 12/28/2024 11:00 AM EST Office Visit [facility] Gastroenterology [address] [place] [address] Galen Alvarenga MD [address] [facility] [address] [place] [address] documented as of this encounter Procedures Procedure Name Priority Date/Time Associated Diagnosis Comments TISSUE EXAM [facility] AP Routine 02/24/2023 12:30 PM EDT Esophageal dysphagia Eosinophilic esophagitis EGD, WITH BALLOON DILATION 02/24/2023 12:22 PM EDT Esophageal dysphagia Eosinophilic esophagitis documented in this encounter Results * Tissue Exam (02/24/2023 12:30 PM EDT) Pathologist [facility] AP RESULT See Note: [facility] Comment: [facility] [address] ?[place] ??[address] or [phone] Cy Garcia M.D., Credit Collection Specialist PATIENT NAME ? LABORATORY NO. [id number] ??TESSIE PAGE ?[id number] ? AGE ? SEX ??SSN ? CLIENT REF # [facility] ? 42 ?1980 ??F ?[id number] DEAN ? REQUESTING M.D. ? ATTENDING M.D. ? COPY TO. [address] ? [place] [address] ?DATE COLLECTED ?DATE RECEIVED ?DATE REPORTED 02/24/2023 [...] rendered by Vero Sanon D.O., F.C.A.P. at [facility], [address] [place] [address]. GROSS DESCRIPTION: A. ??Labeled antrum consists of [...] BY: Vero Sanon D.O., F.C.A.P. CPT CODES: ??[id number] Tissue PYLORIC ANTRUM STRUCTURE / Unknown 02/24/2023 12:30 PM EDT Tissue specimen (specimen) DUODENAL STRUCTURE / Unknown 02/24/2023 12:30 PM EDT Tissue specimen (specimen) ESOPHAGEAL STRUCTURE / Unknown 02/24/2023 12:34 PM EDT Tissue specimen (specimen) BIOPSY OF ESOPHAGUS / Unknown 02/24/2023 12:34 PM EDT us Galen Alvarenga MD PATHOLOGY/CYTOLOGY ORDERABLES Final Result [facility] [address] [place] [address] documented in this encounter Visit Diagnoses Diagnosis [...] without mention of status migrainosus Stroke (cerebrum) ([facility]) Unspecified cerebral artery occlusion with cerebral infarction documented in this encounter Admitting Diagnoses Diagnosis [...] Pre-op 1151 (New Bag - Prov ider: Chyanna M Brody, RN)1222 (Continued by Anesthesia - Provider: Corinna [...] Pre-op documented in this encounter Care Teams Camp Director Relationship Specialty Start Date End Date Uyen Hines MD [address] [place] [address] PCP - General Family Medicine 02/11/23 Gee Quan APRN [address] [place] [address] Nurse Practitioner 02/24/23 documented as of this encounter
--- OUTSIDE RECORDS SUMMARY | 2024-10-19 10:52 | XMS_ITS | Encounter Summary ---
Author Organization [employer] Address [address] [facility] [place] [address] Care Team Providers Care Typewriter Assembler Name Role Phone Uyen Hines MD Primary Care Provider [phone] Gee Quan JOURNAL CLERK Unavailable [phone] Encounter Details Date Type Department Care Team (Late st Contact Info) Description 01/24/2020 Historic Encounter [address] [address] ProviderMary Jane Historical Social History Tobacco Use Types Packs/Day Years [...] Office Visit [facility] Gastroenterology [address] [place] [address] Christopher Mcghee MD [address] [facility] [address] [place] [address] documented as of this encounter Procedures Procedure Name Priority Date/Time Associated Diagnosis Comments E3+ POC ([facility] DATA CONV) Routine 01/24/2020 11:45 AM EST documented in this encounter Results * E3+ POC ([facility] DATA CONV) (01/24/2020 11:45 AM EST) Sodium POC 138 138 - 146 mmol/L 01/24/2020 4:45 PM EST [facility] Potassium POC 4.7 3.5 - 4.9 mmol/L 01/24/2020 4:45 PM EST [facility] Hemoglobin POC 13.3 12.0 - 17.0 Gram/dL 01/24/2020 4:45 PM EST [facility] Hematocrit POC 39.0 38.0 - 51.0 % 01/24/2020 4:45 PM EST [facility] Brake Drum Molder [id number] 01/24/2020 4:45 PM EST [facility] Device SN [id number] 01/24/2020 4:45 PM EST [facility] Blood 01/24/2020 11:4 5 AM EST 01/24/2020 11:01 PM EST Sle Historical Provider LAB BLOOD ORDERABLES Fi nal Result [facility] [address] [phone] documented in this encounter Visit Diagnoses Not on filedocumented in this encounter Care Teams Typewriter Assembler Relationship Specialty Start Date End Date Uyen Hines MD [address] [place] [address] PCP - General Family Medicine 02/11/23 Gee Quan APRN [address] [place] [address] Nurse Practitioner 02/24/23 documented as of this encounter
--- OUTSIDE RECORDS SUMMARY | 2024-10-19 10:52 | XMS_ITS | Encounter Summary ---
Author Organization [facility] Address [address] [id number] Care Team Providers Care Pie Bottomer Name Role Phone Uyen Hines MD Primary Care Provider [phone] Telma Smith FARO DEALER Unavailable [phone] Reason for Visit * Reason Comments Med Refill Encounter Details Date Type Department Care Team (Late st Contact Info) Description 08/25/2024 Refill [facility] End[facility]inology [address] [facility], [address] [place] [address] Rigoberto Graves MD [address] [facility] [address] [place] [address] Adrenal insufficiency (CMS/HCC) Social History Tobacco Use Types Packs/Day Years [...] encounter Miscellaneous Notes * Telephone Encounter - Carmelina Lion RN - 08/26/2024 12:22 PM EDT Attempted to contact [facility] for return call. Patient needs follow-up scheduled before fill. Carmelina Lion, RN * Telephone Encounter - Shila Ngo PharmD - 08/26/2024 11:15 AM EDT Refill request does not meet protocol. Sending to clinic for review. Additional info: Clarification required: Medication not mentioned in most recent clinic note. On med list has an end date of 08/07/24. Please review. documented in this encounter Plan of Treatment Upcoming Encounters Date Type Department Care Team ([facility] st Contact Info) Description 12/21/2024 12:40 PM EST Office Visit [facility]ology [address] [facility], [address] [place] [address] [place] [address] [place] [address] [address] [place] [phone] 01/25/2025 3:20 PM EST Office Visit [facility] Nephrology, Bone & Mineral Metabolism [address] [facility], [address] [place] [address] David Winslow MD [address] [facility] [address] [place] [address] 03/25/2025 11:20 AM EDT Office Visit [facility] Endocrinology [address] [facility], [address] [place] [address] (1), Rigoberto Graves Fellow documented as of this encounter Visit Diagnoses Diagnosis Adrenal insufficiency (CMS/HCC) Glucocorticoid deficiency documented in this encounter Additional Health Concerns Assessment Noted Time A fall risk assessment has been complete d for the patient 07/12/2024 3:08 PM EDT A Body Mass Index follow-up plan has been documented for the patient 07/13/2024 4:45 PM EDT documented as of this encounter Care Teams Pie Bottomer Relationship Specialty Start Date End Date Uyen Hines MD [address] [place] [id number] PCP - General 05/31/22 Telma Smith APRN [address] [address] Nurse Practitioner Neurosurgery 09/01/23 documented as of this encounter
--- OUTSIDE RECORDS SUMMARY | 2024-10-19 10:52 | XMS_ITS | Encounter Summary ---
Author Organization [employer] Address [address] [place] [address] Care Team Providers Care Psychologist Name Role Phone Uyen Hines MD Primary Care Provider [phone] Gee Quan TELEPHONE MAINTAINER Unavailable [phone] Encounter Details Date Type Department Care Team (Late st Contact Info) Description 01/24/2020 Historic Encounter [address] [address] Mary Jane Clark Historical Social History Tobacco Use Types Packs/Day [...] 11:00 AM EST Office Visit [facility] Gastroenterology [address] [place] [address] Christopher Mcghee MD [address] [facility] [address] [place] [address] documented as of this encounter Procedures Procedure Name Priority Date/Time Associated Diagnosis Comments POCT-CREATININE Routine 01/24/2020 11:50 AM EST documented in this encounter Results * POC-Creatinine (01/24/2020 11:50 AM EST) Creatinine POC 0.9 0.6 - 1.3 mg/dL 01/24/2020 4:50 PM EST [facility] eGFR 85 >=60 mL/min/1. 73m2 01/24/2020 11:01 PM EST [facility] eGFR NonAfrican 70 >=60 mL/min/1. 73m2 01/24/2020 11:01 PM EST [facility] Pattern Cutter [id number] 01/24/2020 4:[address] [facility] Device SN [id number] 01/24/2020 4:[address] [facility] Blood 01/24/2020 11:5 0 AM EST 01/24/2020 11:01 PM EST [facility] Historical Provider POINT OF CARE TEST CORA HUERTAS Final Result Performing Organization Address City/State/[facility] Co de Phone Number [facility] [address] [phone] documented in this encounter Visit Diagnoses Not on filedocumented in this encounter Care Teams Psychologist Relationship Specialty Start Date End Date Uyen Hines MD [address] [place] [address] PCP - General Family Medicine 02/11/23 Gee Quan, CAMELIA [address] [place] [address] Nurse Practitioner 02/24/23 documented as of this encounter
--- OUTSIDE RECORDS SUMMARY | 2024-10-19 10:52 | XMS_ITS | Encounter Summary ---
Author Organization [facility] [employer] Address [address] [place] [address] Care Team Providers Care Health Information Technician Name Role Phone Uyen Hines MD Primary Care Provider [phone] Gee Quan MIGRATORY WORKER Unavailable [phone] Encounter Details Date Type Department Care Team (Late st Contact Info) Description 12/11/2020 Transcribed Document [facility] [place] Medicine [address] [place] [address] ProviderEbony MD [address] [place] [address] Social History Tobacco Use Types [...] - Historical ProviderMD - 12/11/2020 11:12 AM AUTOMOBILE GLASS TECHNICIAN Broset Violence Assessment Entered On: 12/11/2020 14:30 EST Performed On: 12/11/2020 14:30 EST by NANNETTE DOMINGUEZ, RN Broset Violence Assessment Broset Violence Checklist of Symptoms : None Broset Violence Symptoms Subtotal : 0 Broset Violence Symptoms Indicator : Low risk (0) NANNETTE DOMINGUEZ RN - 12/11/2020 14:30 EST Electronically signed by Meredith [facility] Conversion Area Forester Cerner at 03/14/2023 6:24 PM CDT documented in this encounter Plan of Treatment Upcoming Encounters Date Type Department Care Team (Late st Contact Info) Description 12/28/2024 11:00 AM EST Office Visit [facility] Gastroenterology [address] [place] [address] Christopher Mcghee MD [address] [facility] [address] [place] [address] documented as of this encounter Visit Diagnoses Not on filedocumented in this encounter Care Teams Health Information Technician Relationship Specialty Start Date End Date Uyen Hines MD [address] [place] [phone] PCP - General Family Medicine 02/11/23 Gee Quan, CAMELIA [address] [place] [address] Nurse Practitioner 02/24/23 documented as of this encounter
--- OUTSIDE RECORDS SUMMARY | 2024-10-19 10:52 | XMS_ITS | Encounter Summary ---
Author Organization [employer] Address [address] [place] [address] Care Team Providers Care Floral Design Teacher Name Role Phone Uyen Hines MD Primary Care Provider [phone] Gee Quan OPERATIONS SCHEDULER Unavailable [phone] Encounter Details Date Type Department Care Team (Latest Contact Info) Description 02/24/2023 Travel Social History Tobacco Use Types Packs/Day [...] Description 12/28/2024 11:00 AM EST Office Visit [facility] Gastroenterology [address] [place] [address] Christopher Mcghee MD [address] [facility] [address] [place] [address] documented as of this encounter Visit Diagnoses Not on filedocumented in this encounter Care Teams Floral Design Teacher Relationship Specialty Start Date End Date Uyen Hines MD [address] [place] [place] [phone] PCP - General Family Medicine 02/11/23 Gee Quan APRN [address] [place] [address] Nurse Practitioner 02/24/23 documented as of this encounter
--- OUTSIDE RECORDS SUMMARY | 2024-10-19 10:52 | XMS_ITS | Encounter Summary ---
Author Organization [facility] Address [address] [place] [address] Care Team Providers Care Stripper Opaquer Name Role Phone Uyen Hines MD Primary Care Provider [phone] Telma Smith APRN Unavailable [phone] Encounter Details Date Type Department Care Team (Latest Contact Info) Description 08/16/2024 Travel Social History Tobacco Use Types Packs/Day [...] Description 12/21/2024 12:40 PM EST Office Visit [facility] Endocrinology [address] [place] [address] Kajal Smith MD [address] [place] [address] 01/25/2025 3:20 PM EST Office Visit [facility] Nephrology, Bone & Mineral Metabolism [address] [facility], [address] [place] [address] David Winslow MD [address] [facility] [address] [place] [address] 03/25/2025 11:20 AM EDT [facility] [address], [address] [place] [address] (1), Rigoberto Graves Fellow documented as of this encounter Visit Diagnoses Not on filedocumented in this encounter Additional Health Concerns Assessment Noted Time A fall risk assessment has been complete d for the patient 07/12/2024 3:08 PM EDT A Body Mass Index follow-up plan has been documented for the patient 07/13/2024 4:45 PM EDT documented as of this encounter Care Teams Stripper Opaquer Relationship Specialty Start Date End Date Uyen Hines MD [address] [place] [address] PCP - General 05/31/22 Telma Smith APRN [address] [facility] [address] [place] [address] Nurse Practitioner Neurosurgery 09/01/23 documented as of this encounter
--- OUTSIDE RECORDS SUMMARY | 2024-10-19 10:52 | XMS_ITS | Encounter Summary ---
Author Organization [employer] [facility] Address [address] [place] [address] Care Team Providers Care Refrigeration Plant Operator Name Role Phone Uyen Hines MD Primary Care Provider [phone] Gee Quan ANESTHESIA RESIDENT Unavailable [phone] Encounter Details Date Type Department Care Team (Late st Contact Info) Description 01/24/2020 Transcribed Document [facility] [place] [facility] [place] [address] ProviderEbony MD [address] [place] [address] Social History Tobacco Use Types Packs/Day Years Used Date Smoking Tobacco: Never Assessed Comments Unknown Sex and Gender Information Value Date Recorded Sex Assigned at Not on file Legal Sex Female 5:55 PM CDT Gender Identity Not on file Sexual Orientation Not on file documented as of this encounter Miscellaneous Notes * Cerner Conversion Note - Historical ProviderMD - 01/24/2020 11:17 AM SUPERVISOR EXTRUSION Pre Procedure Adult Entered On: 01/24/2020 11:20 EST Performed On: 01/24/2020 11:17 EST by Landy Spencer Registered Nurse Height and Weight, Clinical Dosing Height Source : Stated Height Entry Format : [place] Height, Feet : 5 ft(Converted to: 152 cm, 60 Inch) Height, Inches : 4 Inch(Converted to: 0 ft 4 Inch, 10.16 cm) Clinical Height : 162.56 cm Weight Source : Standing scale Weight Entry Format : Ocean Clinical Dosing Weight : 100 kg Weight, Pounds : 220 lb Body Surface Area (BSA) : 2.04 m2 Body Mass Index : 37.8 kg/m2 (HI) [place] Body Weight : 54 kg Landy Spencer Registered Nurse - 01/24/2020 11:17 EST Health Histories Smoking Status : Never (less than 100 in lifetime; none in last 30 days) Smokeless Tobacco Status : Never Landy Spencer Registered Nurse - 01/24/2020 11:17 EST Social History (As Of: 01/24/2020 11:20:39 EST) Tobacco: Smoking Status Never smoker. (Last Updated: 06/11/2017 14:29:54 EDT by Marya Joshi, Rn) Alcohol: Alcohol Use History No. (Last Updated: 06/11/2017 14:29:58 EDT by Marya Joshi Rn) Substance Abuse: Drug Use Hx: No. (Last Updated: 06/11/2017 14:30:05 EDT by Marya Joshi Rn) Infectious Disease History Physical contact outside US in the last 30 days : No Infectious Disease History : Chicken pox/Shingles Tuberculosis Symptoms : None Landy Spencer Registered Nurse - 01/24/2020 11:17 EST Anesthesia/Transfusion History Family History of Anesthesia Reaction : No prior transfusion(s) Transfusion History : Prior anesthesia without reaction Family History of Anesthesia Reaction : None Landy Spencer Registered Nurse - 01/24/2020 11:17 EST Functional Assessment Living Situation : Home Current Home Treatments : None Landy Spencer Registered Nurse - 01/24/2020 11:17 EST Dare Suicide Severity Rating Scale (C-SSRS) CSSRS Past Month Wish to be : No CSSRS Past Month Suicidal Thoughts : No CSSRS Lifetime Suicide Behavior : No Suicide Severity Rating Score : 0 Suicide Severity Rating : No Additional Care Required at this time Landy Spencer Registered Nurse - 01/24/2020 11:17 EST Psychosocial History Chronic/Terminal Illness w/Freq Visits : No Do You Have a History of the Following? : Anxiety Currently in Unsafe Situation : No Landy Spencer Registered Nurse - 01/24/2020 11:17 EST Advance Directive Patient has Advance Directive *Q : No, patient refuses Advance Directive information aLndy Spencer Registered Nurse - 01/24/2020 11:17 EST General Info Support Person/Pt Rep Name : donnie salazar [phone] Want Family/Rep/Phys Notified of Admit : No Emergency Contact #1 : na Emergency Contact #1 Phone Number : na Emergency Contact #1 Relationship : na Emergency Contact #2 : na Emergency Contact #2 Phone Number : na Emergency Contact #2 Relationship : na Primary Language : Mongolian Preferred Communication Mode : Verbal Communication Barrier : None Landy Spencer Registered Nurse - 01/24/2020 11:17 EST Sleep Apnea Risk Assmt Hx of Obstructive Sleep Apnea Diagnosis : No Snore Loudly : No Tired, Fatigued, or Sleepy During Day : No Age over 50 Years Old : No Gender Male : No Landy Spencer Registered Nurse - 01/24/2020 11:17 EST Electronically signed by [facility] Conversion Thermodynamics Engineer Cerner at 03/14/2023 6:12 PM CDT documented in this encounter Plan of Treatment Upcoming Encounters Date Type Department Care Team (Late st Contact Info) Description 12/28/2024 11:00 AM EST Office Visit [facility] Gastroenterology [address] [place] [address] Christopher Mcghee MD [address] [facility] [address] [place] [address] documented as of this encounter Visit Diagnoses Not on filedocumented in this encounter Care Teams Refrigeration Plant Operator Relationship Specialty Start Date End Date Uyen Hines MD [address] [place] [address] PCP - General Family Medicine 02/11/23 Gee Quan APRN [address] [place] [address] Nurse Practitioner 02/24/23 documented as of this encounter
--- OUTSIDE RECORDS SUMMARY | 2024-10-19 10:52 | XMS_ITS | Encounter Summary ---
Author Organization [facility] Address [address] [place] [address] Care Team Providers Care Brick Wheeler Name Role Phone Uyen Hines MD Primary Care Provider [phone] Telma Smith APRN Unavailable [phone] Encounter Details Date Type Department Care Team (Latest Contact Info) Description 09/02/2024 Travel Social History Tobacco Use Types Packs/Day [...] Description 12/21/2024 12:40 PM EST Office Visit [facility] Endocrinology [address] [place] [address] Kajal Smith MD [address] [place] [address] 01/25/2025 3:20 PM EST Office Visit [facility] Nephrology, Bone & Mineral Metabolism [address] [facility], [address] [place] [address] David Winslow MD [address] [facility] [address] [place] [address] 03/25/2025 11:20 AM EDT [facility] [address], [address] [place] [address] (1), Rigoberto Graves Fellow documented as of this encounter Visit Diagnoses Not on filedocumented in this encounter Additional Health Concerns Assessment Noted Time A fall risk assessment has been complete d for the patient 07/12/2024 3:08 PM EDT A Body Mass Index follow-up plan has been documented for the patient 09/02/2024 10:43 AM EDT documented as of this encounter Care Teams Brick Wheeler Relationship Specialty Start Date End Date Uyen Hines MD [address] [place] [address] PCP - General 05/31/22 Telma Smith APRN [address] [facility] [address] [place] [address] Nurse Practitioner Neurosurgery 09/01/23 documented as of this encounter
--- OUTSIDE RECORDS SUMMARY | 2024-10-19 10:52 | XMS_ITS | Encounter Summary ---
Author Organization [employer] Address [address] [place] [address] Care Team Providers Care Planetarium Sky Show Technician Name Role Phone Uyen Hines MD Primary Care Provider [phone] Gee Quan LEATHER STITCHER Unavailable [phone] Encounter Details Date Type Department Care Team (Late st Contact Info) Description 01/24/2020 Transcribed Document [facility] [place] [facility] [place] [address] Ebony Clark MD [address] [place] [address] Social History Tobacco Use Types Packs/Day Years Used Date Smoking Tobacco: Never Assessed Comments Unknown Sex and Gender Information Value Date Recorded Sex Assigned at Not on file Legal Sex Female 5:55 PM CDT Gender Identity Not on file Sexual Orientation Not on file documented as of this encounter Miscellaneous Notes * Cerner Conversion Note - Ebony Clark MD - 01/24/2020 5:00 PM PRODUCTION WELDING SUPERVISOR Patient Education Materials Follows: Moderate Conscious Sedation, Adult, Care After These instructions provide you with information about caring for yourself after your procedure. Your health care provider may also give you more specific instructions. Your treatment has been planned according to current medical practices, but problems sometimes occur. Call your health care provider if you have any problems or questions after your procedure. What can I expect after the procedure? After your procedure, it is common: ??? To feel sleepy for several hours. ??? To feel clumsy and have poor balance for several hours. ??? To have poor judgment for several hours. ??? To vomit if you eat too soon. Follow these instructions at home: For at least 24 hours after the procedure: ??? Do not: ? Participate in activities where you could fall or become injured. ? Drive. ? Use heavy machinery. ? Drink alcohol. ? Take sleeping pills or medicines that cause drowsiness. ? Make important decisions or sign legal documents. ? Take care of children on your own. ??? Rest. Eating and drinking ??? Follow the diet recommended by your health care provider. ??? If you vomit: ? Drink water, juice, or soup when you can drink without vomiting. ? Make sure you have little or no nausea before eating solid foods. General instructions ??? Have a responsible adult stay with you until you are awake and alert. ??? Take vnkp-bwm-gfgoymx and prescription medicines only as told by your health care provider. ??? If you smoke, do not smoke without supervision. ??? Keep all follow-up visits as told by your health care provider. This is important. Contact a health care provider if: ??? You keep feeling nauseous or you keep vomiting. ??? You feel light-headed. ??? You develop a rash. ??? You have a fever. Get help right away if: ??? You have trouble breathing. This information is not intended to replace advice given to you by your health care provider. Make sure you discuss any questions you have with your health care provider. Document Released: 08/31/2014 Document Revised: 04/14/2017 Document Reviewed: 03/01/2017 [employer] Interactive Patient Education ? 2019 [employer] documented in this encounter Plan of Treatment Upcoming Encounters Date Type Department Care Team (Late st Contact Info) Description 12/28/2024 11:00 AM EST Office Visit [facility] Gastroenterology [address] [place] [address] Christopher Mcghee MD [address] [facility] [address] [place] [address] documented as of this encounter Visit Diagnoses Not on filedocumented in this encounter Care Teams Planetarium Sky Show Technician Relationship Specialty Start Date End Date Uyen Hines MD [address] [place] [phone] PCP - General Family Medicine 02/11/23 Gee Quan, CAMELIA [address] [place] [address] Nurse Practitioner 02/24/23 documented as of this encounter
--- OUTSIDE RECORDS SUMMARY | 2024-10-19 10:52 | XMS_ITS | Encounter Summary ---
Author Organization [facility] Address [address] [place] [address] Care Team Providers Care Hasher Machine Operator Name Role Phone Unavailable Primary Care Provider Unavailabl e Encounter Details Date Type Department Care Team (Late st Contact Info) Description 10/07/2022 Orders Only [facility] Gastroenterology [address] [place] [address] Provider, MD Ebony [address] [place] [address] Social History Tobacco Use Types Packs/Day [...] Description 12/28/2024 11:00 AM EST Office Visit [facility] Gastroenterology [address] [place] [address] Christopher Mcghee MD [address] [facility] [address] [place] [address] documented as of this encounter Procedures Procedure Name Priority Date/Time Associated Diagnosis Comments EXTERNAL LAB - MISC Routine 09/30/2022 documented in this encounter Results * EXTERNAL LAB - MISC (09/30/2022) us Historical Provider LAB BLOOD ORDERABLES Eva l Result documented in this encounter Visit Diagnoses Not on filedocumented in this encounter
--- OUTSIDE RECORDS SUMMARY | 2024-10-19 10:52 | XMS_ITS | Encounter Summary ---
Author Organization [employer] Address [address] [facility] [place] [address] Care Team Providers Care Quill Stripper Name Role Phone Uyen Hines MD Primary Care Provider [phone] Gee Quan JACKHAMMER SPLITTER OPERATOR Unavailable [phone] Encounter Details Date Type Department Care Team (Late st Contact Info) Description 12/11/2020 Transcribed Document [facility] [facility] [place] [address] ProviderEbony MD [address] [place] [address] Social History Tobacco Use Types Packs/Day Years Used Date Smoking Tobacco: Never Assessed Comments Unknown Sex and Gender Information Value Date Recorded Sex Assigned at Not on file Legal Sex Female 5:55 PM CDT Gender Identity Not on file Sexual Orientation Not on file documented as of this encounter Miscellaneous Notes * Cerner Conversion Note - Ebony ProviderMD - 12/11/2020 11:12 AM RV REPAIRER ED Triage Entered On: 12/11/2020 11:28 EST Performed On: 12/11/2020 11:26 EST by CHARISMA TAPIA RN ED Triage Across the Room Chief Complaint : Pt c/o abd pain x 10 days, pelvic pain, n/v/d, fatigue, has had hysterectomy. CHARISMA TAPIA RN - 12/11/2020 11:29 EST Triage Date/Time : 12/11/2020 11:26 EST CHARISMA TAPIA RN - 12/11/2020 11:26 EST DCP GENERIC CODE Tracking Group : [facility] Tracking Acuity : 3 - Urgent CHARISMA TAPIA RN - 12/11/2020 11:26 EST Mode of Arrival : Ambulatory Transported to ED by : Private vehicle To Room Via : Ambulate Accompanied By : Spouse ED Vital Signs : Document Height & Weight : Document ED Allergies : Document ED Reason for Visit : Document Tetanus Immunization : Greater than 10 years CHARISMA TAPIA RN - 12/11/2020 11:26 EST Infectious Disease History Has the patient ever been tested for COVID-19? : Yes, Patient stated results Negative Date of COVID-19 test known? : No Does patient have symptoms of COVID-19? : No COVID19 Screening : No Experiencing Infectious Disease Symptoms : No symptoms Physical contact outside US in the last 30 days : No Infectious Disease History : Chicken pox/Shingles Tuberculosis Symptoms : None CHARISMA TAPIA RN - 12/11/2020 11:26 EST Vital Signs ED Temperature Source : Temporal artery scanning Temperature Mode : Fahrenheit Temperature, Fahrenheit : 97.0 Deg F Clinical Temperature, C : 36.1 Deg C Oxygen Therapy Mode : Room air Peripheral Pulse Rate : 99 bpm Respiratory Rate : 18 Breaths/Min Systolic Blood Pressure : 127 mmHg Diastolic Blood Pressure : 89 mmHg Oxygen Saturation : 98 % CHARISMA TAPIA RN - 12/11/2020 11:26 EST Allergy (As Of: 12/11/2020 11:28:04 EST) Allergies (Active) No Known Medication Allergies Estimated Onset Date: Unspecified ; Created By: KARI SALDANA RN; Reaction Status: Active ; Category: Drug ; Substance: No Known Medication Allergies ; Type: Allergy ; Updated By: KARI SALDANA RN; Reviewed Date: 12/11/2020 11:26 EST Diagnosis Control ED (As Of: 12/11/2020 11:28:04 EST) Problems(Active) Anxiety (SNOMED CT :2694806969 ) Name of Problem: Anxiety ; Recorder: Marya Joshi Rn; Confirmation: Confirmed ; Classification: Medical ; Code: [id number] ; Contributor System: JotSpot ; Last Updated: 06/11/2017 14:27 EDT ; Life Cycle Date: 06/11/2017 ; Life Cycle Status: Active ; Vocabulary: SNOMED CT GERD - Gastro-esophageal reflux disease (SNOMED CT :8240036323 ) Name of Problem: GERD - Gastro-esophageal reflux disease ; Recorder: STACY WYNNE, CAMELIA; Confirmation: Confirmed ; Classification: Medical ; Code: [id number] ; Contributor System: JotSpot ; Last Updated: 01/21/2020 11:45 EST ; Life Cycle Status: Active ; Vocabulary: SNOMED CT Hypothyroid (SNOMED CT :605033802 ) Name of Problem: Hypothyroid ; Recorder: Marya Joshi Rn; Confirmation: Confirmed ; Classification: Medical ; Code: [id number] ; Contributor System: PowerChart ; Last Updated: 06/11/2017 14:27 EDT ; Life Cycle Date: 06/11/2017 ; Life Cycle Status: Active ; Vocabulary: SNOMED CT Obesity (SNOMED CT :4405521931 ) Name of Problem: Obesity ; Recorder: STACY WYNNE, JACKHAMMER SPLITTER OPERATOR; Confirmation: Confirmed ; Classification: Medical ; Code: [id number] ; Contributor System: PowerChart ; Last Updated: 01/21/2020 11:46 EST ; Life Cycle Status: Active ; Vocabulary: SNOMED CT Diagnoses(Active) Abdominal pain Date: 12/11/2020 ; Diagnosis Type: Reason For Visit ; Confirmation: Complaint of ; Clinical Dx: Abdominal pain ; Classification: Medical ; Clinical Service: Emergency medicine ; Code: PNED ; Probability: 0 ; Diagnosis Code: [id number] ED Height and Weight Height Source : Stated Height Entry Format : [place] Height, Feet : 5 ft(Converted to: 152 cm, 60 Inch) Height, Inches : 4 Inch(Converted to: 0 ft 4 Inch, 10.16 cm) Clinical Height : 162.56 cm Weight Source, ED : Critical estimated dosing weight Weight Entry Format : [place] Weight, Pounds : 196 lb Clinical Dosing Weight : 89.09 kg Body Surface Area (BSA) : 1.94 m2 Body Mass Index : 33.7 kg/m2 (HI) [place] Body Weight (IBW) : 54.3 kg CHARISMA TAPIA RN - 12/11/2020 11:26 EST documented in this encounter Plan of Treatment Upcoming Encounters Date Type Department Care Team (Late st Contact Info) Description 12/28/2024 11:00 AM EST Office Visit [facility] Gastroenterology [address] [place] [address] Christopher Mcghee MD [address] [facility] [address] [place] [address] documented as of this encounter Visit Diagnoses Not on filedocumented in this encounter Care Teams Quill Stripper Relationship Specialty Start Date End Date Uyen Hines MD [address] [place] [phone] PCP - General Family Medicine 02/11/23 Gee Quan, JACKHAMMER SPLITTER OPERATOR [address] [place] [address] Nurse Practitioner 02/24/23 documented as of this encounter
--- OUTSIDE RECORDS SUMMARY | 2024-10-19 10:52 | XMS_ITS | Encounter Summary ---
Author Organization [facility] Address [address] [place] [address] Care Team Providers Care Carpenters Helper Name Role Phone Sinan Hines MD Primary Care Provider [phone] Gee Quan COTTAGE SUPERVISOR Unavailable [phone] Encounter Details Date Type Department Care Team (Late st Contact Info) Description 01/24/2020 Transcribed Document [facility] [place] [facility] [place] [address] ProviderEbony MD [address] [place] [address] Social History Tobacco Use Types Packs/Day Years Used Date Smoking Tobacco: Never Assessed Comments Unknown Sex and Gender Information Value Date Recorded Sex Assigned at Not on file Legal Sex Female 5:55 PM CDT Gender Identity Not on file Sexual Orientation Not on file documented as of this encounter Miscellaneous Notes * Cerner Conversion Note - Ebony ProviderMD - 01/24/2020 5:02 PM SUPERVISOR CARBON ELECTROD[employer] [facility] DARCY Olsen [address] TOMMY PAGE :1980 Visit Time:01/24/2020 Your Visit Summary Your Care Team Admitting Physician - COLT SCOTT MD-CAR Attending Physician - COLT SCOTT MD-CAR Primary Care Physician - SINAN HINES (REF)MONI Referring Physician - COLT SCOTT MD-CAR Your Diagnosis Other forms of angina pectoris, Other forms of angina pectoris Discharge Vitals Heart Rate (Monitored) 80 Respiratory Rate 20 Blood Pressure 112/69 Blood Pressure 120/69(Line) What to do next Instructions From Your Care Team rest today, remove jeri melton with shower. resume medications Follow-Up Appointments Follow Up with [facility] When Within 1 month Comments Call in the AM Where: [address] SECTION OF CARDIOLOGY [address] [facility] (1) Medications What How Much When Instructions Next Dose ALPRAZolam (Xanax 0.5 mg oral tablet) 1 [...] Capsule(s) Oral Every Day before a meal Take your medications faithfully. Do NOT skip [...] Please dispose of unused and medications per your retail pharmacy guidance. Allergies No Known Medication Allergies Immunizations This Visit No Immunizations Found Education Materials Moderate Conscious Sedation, Adult, Care After These [...] you are awake and alert. ??? Take jycl-zah-ikupymw and prescription medicines only as told by [...] 08/31/2014 Document Revised: 04/14/2017 Document Reviewed: 03/01/2017 [employer] Interactive Patient Education ?? 2019 [employer]. Emergency Awareness and Preventative Care STROKE is [...] Assistance with quitting is available by contacting 4-171-ANOS-NOW. This is a free resource providing counseling, [...] and how to prevent infections, visit www.cdc.gov/sepsis. Test Results Laboratory or Other Results This Visit (last charted value for your 01/24/2020 visit) Hematology 01/24/2020 10:54 AM Platelet Count: 350 K/uL -- Normal range between ( 163 and 369 ) Patient Name:TOMMY PAGE I have received and understand this information and was given the opportunity to ask questions. Patient/Monitor Worker Name: Patient/Monitor Worker Signature: Relationship to Patient: Clinician/Hospital Monitor Worker Signature: Date: documented in this encounter Plan of Treatment Upcoming Encounters Date Type Department Care Team (Late st Contact Info) Description 12/28/2024 11:00 AM EST Office Visit [facility] Gastroenterology [address] [place] [address] Christopher Mcghee MD [address] [facility] [place] [address] documented as of this encounter Visit Diagnoses Not on filedocumented in this encounter Care Teams Carpenters Helper Relationship Specialty Start Date End Date Sinan Hines MD [address] [place] [address] PCP - General Family Medicine 02/11/23 Gee Quan, COTTAGE SUPERVISOR [address] [place] [address] Nurse Practitioner 02/24/23 documented as of this encounter
--- OUTSIDE RECORDS SUMMARY | 2024-10-19 10:52 | XMS_ITS | Encounter Summary ---
Author Organization [employer] [facility] Address [address] [place] [address] Care Team Providers Care Special Agent Name Role Phone Uyen Hines MD Primary Care Provider [phone] Gee Quan SALES SUPPORT TECHNICIAN Unavailable [phone] Encounter Details Date Type Department Care Team (Late st Contact Info) Description 12/11/2020 Transcribed Document [facility] [place] [facility] [place] [address] ProviderEbony MD [address] [place] [address] Social History Tobacco Use Types Packs/Day Years Used Date Smoking Tobacco: Never Assessed Comments Unknown Sex and Gender Information Value Date Recorded Sex Assigned at Not on file Legal Sex Female 5:55 PM CDT Gender Identity Not on file Sexual Orientation Not on file documented as of this encounter Miscellaneous Notes * Cerner Conversion Note - Historical ProviderMD - 12/11/2020 2:17 PM STARS SPECIALIST Novel Coronavirus 2019 - - Negative 12/11/2020 12:25 12/11/2020 14:17 (ANNA MALDONADO PA) Reviewed by Provider, No further action required documented in this encounter Plan of Treatment Upcoming Encounters Date Type Department Care Team (Late st Contact Info) Description 12/28/2024 11:00 AM EST Office Visit [facility] Gastroenterology [address] [place] [address] Christopher Mcghee MD [address] [facility] [address] [place] [address] documented as of this encounter Visit Diagnoses Not on filedocumented in this encounter Care Teams Special Agent Relationship Specialty Start Date End Date Uyen Hines MD [address] [place] [phone] PCP - General Family Medicine 02/11/23 Gee Quan APRN [address] [place] [address] Nurse Practitioner 02/24/23 documented as of this encounter
--- OUTSIDE RECORDS SUMMARY | 2024-10-19 10:52 | XMS_ITS | Encounter Summary ---
Author Organization [employer] Address [address] [place] [address] Care Team Providers Care Metal Bonding Press Operator Name Role Phone Uyen Hines MD Primary Care Provider [phone] Gee Quan ELECTRIC MOTORS SALESPERSON Unavailable [phone] Encounter Details Date Type Department Care Team (Late st Contact Info) Description 12/11/2020 Transcribed Document [facility] [place] Family Medicine [facility] [place] [address] ProviderEbony MD [address] [place] [address] Social History Tobacco Use Types Packs/Day Years Used Date Smoking Tobacco: Never Assessed Comments Unknown Sex and Gender Information Value Date Recorded Sex Assigned at Not on file Legal Sex Female 5:55 PM CDT Gender Identity Not on file Sexual Orientation Not on file documented as of this encounter Miscellaneous Notes * Cerner Conversion Note - Historical ProviderMD - 12/11/2020 2:08 PM MANAGER DATA Pain Assessment Entered On: 12/11/2020 14:56 EST Performed On: 12/11/2020 14:56 EST by NANNETTE DOMINGUEZ, RN Intervention Information: morphine Performed by NANNETTE DOMINGUEZ, RN on 12/11/2020 14:19:00 EST morphine,4mg IV Push,Left Antecubital [place] Pain Assessment Pain Assessment : Follow-up assessment Pain Scale Used : 0-10 Scale NANNETTE DOMINGUEZ RN - 12/11/2020 14:56 EST Pain Scale Intensity : 2 NANNETTE DOMINGUEZ RN - 12/11/2020 14:56 EST Image 4 - Images currently included in the form version of this document have not been included in the text rendition version of the form. documented in this encounter Plan of Treatment Upcoming Encounters Date Type Department Care Team (Late st Contact Info) Description 12/28/2024 11:00 AM EST Office Visit [facility] Gastroenterology [address] [place] [phone] Christopher Mcghee MD [address] [facility] [address] [place] [address] documented as of this encounter Visit Diagnoses Not on filedocumented in this encounter Care Teams Metal Bonding Press Operator Relationship Specialty Start Date End Date Uyen Hines MD [address] [place] [phone] PCP - General Family Medicine 02/11/23 Gee Quan APRN [address] [place] [address] Nurse Practitioner 02/24/23 documented as of this encounter
--- OUTSIDE RECORDS SUMMARY | 2024-10-19 10:52 | XMS_ITS | Encounter Summary ---
Author Organization [employer] Address [address] [facility] [address] [facility] [place] [address] Care Team Providers Care Nutritional Services Cook Name Role Phone Uyen Hines MD Primary Care Provider [phone] Gee Quan LAB RN Unavailable [phone] Encounter Details Date Type Department Care Team (Late st Contact Info) Description 01/24/2020 Historic Encounter [address] [address] ProviderMary Jane Historical Social History [...] Description 12/28/2024 11:00 AM EST Office Visit [facility] Gastroenterology [address] [place] [address] Christopher Mcghee MD [address] [facility] [address] [place] [address] documented as of this encounter Procedures Procedure Name Priority Date/Time Associated Diagnosis Comments PLATELET COUNT Routine 01/24/2020 10:54 AM EST documented in this encounter Results * Platelet count (01/24/2020 10:54 AM EST) Platelet Count 350 163 - 369 K/uL 01/24/2020 5:24 PM EST Blood 01/24/2020 10:5 4 AM EST 01/24/2020 5:21 PM EST [facility] Historical Provider LAB BLOOD ORDERABLES Fi nal Result [facility] [address] [phone] documented in this encounter Visit Diagnoses Not on filedocumented in this encounter Care Teams Nutritional Services Cook Relationship Specialty Start Date End Date Uyen Hines MD [address] [place] [phone] PCP - General Family Medicine 02/11/23 Gee Quan APRN [address] [place] [phone] Nurse Practitioner 02/24/23 documented as of this encounter
--- OUTSIDE RECORDS SUMMARY | 2024-10-19 10:52 | XMS_ITS | Encounter Summary ---
Author Organization [employer] Address [address] [place] [id number] Care Team Providers Care Combination Presser Name Role Phone Uyen Hines MD Primary Care Provider [phone] Gee Quan TABLE OPERATOR Unavailable [phone] Encounter Details Date Type Department Care Team (Late st Contact Info) Description 01/24/2020 Transcribed Document [facility] Cardiology [address] [facility] [address] [place] [address] [place] [address] [place] [address] [address] [place] [id number] Social History Tobacco Use Types Packs/Day Years Used Date Smoking Tobacco: Never Assessed Comments Unknown Sex and Gender Information Value Date Recorded Sex Assigned at Not on file Legal Sex Female 5:55 PM CDT Gender Identity Not on file Sexual Orientation Not on file documented as of this encounter Miscellaneous Notes * Cerner Conversion Note - Noah Scott MD - 01/24/2020 12:00 PM EST Patient: TESSIE PAGE Age: 39 years Sex: Female : 1980 Associated Diagnoses: None Author: NOAH SCOTT MD-CAR Basic Information PCP: Uyen Hines Tray Setter: Cy Reveles MD Chief Complaint chest pain History of Present Illness 39 year old female with a history of GERD and morbid obesity. She was seen by Dr Reveles with complaints of of intermittent chest pain. The pain is midsternal and described as severe. She denies any radiation or associated symptoms. The pain occurred shortly after eating, lasting around 20 minutes. She underwent a GXT stress test, walking 4 minutes and 32 seconds and reaching target heart rate. She did have 1mm ST depression. During exercise she reported chest pain and dizziness. She has been scheduled for elective cardiac cath. Review of Systems Constitutional: Negative except as documented in history of present illness. Eye: Negative except as documented in history of present illness. Ear/Nose/Mouth/Throat: Negative except as documented in history of present illness. Respiratory: Negative except as documented in history of present illness. Cardiovascular: Negative except as documented in history of present illness. Gastrointestinal: Negative except as documented in history of present illness. Genitourinary: Negative except as documented in history of present illness. Hematology/Lymphatics: Negative except as documented in history of present illness. Endocrine: Negative except as documented in history of present illness. Immunologic: Negative except as documented in history of present illness. Musculoskeletal: Negative except as documented in history of present illness. Integumentary: Negative except as documented in history of present illness. Neurologic: Negative except as documented in history of present illness. Psychiatric: Negative except as documented in history of present illness. Health Status Allergies (1) Active Reaction No Known Medication Allergies None Documented Home Medications (2) Active levothyroxine 200 mcg (0.2 mg) oral tablet 200 mcg = 1 Tab, Oral, Daily Xanax 0.5 mg oral tablet 0.5 mg = 1 Tab, PRN, Oral, BID Allergies: Allergic Reactions (Selected) No Known Medication Allergies Current medications: (Selected) Inpatient Medications Ordered [id number] 500 mL: 100 mL/Hr, IntraVENous Normal Saline Flush: 10 mL, IV Push, Q12H Normal Saline Flush: 10 mL, IV Push, See Comment, PRN: IV Use Normal Saline Flush: 5 mL, IV Push, See Comment, PRN: IV Use Sodium Chloride 0.9% intravenous solution 500 mL: Titrate, IntraVENous Completed aspirin: 81 mg, Chew, 1-Time atorvastatin: 80 mg, Oral, PREOP Documented Medications Documented Xanax 0.5 mg oral [...] Daily, before a meal, 30 Cap, 0 Refill(s) Deleted Metoprolol Tartrate 25 mg oral tablet: 0.5 Tab, Oral, BID, 90 Tab, 0 Refill(s), No qualifying data available Problem list: All Problems Hypothyroid / SNOMED CT 139485322 / Confirmed Anxiety / SNOMED CT 9329449169 / Confirmed GERD - Gastro-esophageal reflux disease / SNOMED CT 8300111271 / Confirmed Obesity / SNOMED CT 2710591310 / Confirmed, Active Problems (2) Anxiety Hypothyroid Histories No education data available. Social & Psychosocial Habits Alcohol 06/11/2017 Alcohol Use History, Social Habits No Substance Abuse 06/11/2017 Recreational Drug Use History No Tobacco 06/11/2017 Smoking Status Never smoker Past Medical History: Active GERD - Gastro-esophageal reflux disease (5041530155) Obesity (3170608940) Family History: Noncontributory Procedure history: complete hysterectomy on 06/16/2017 at 36 Years.\.br&T.br.br.brTC X2. cholecystectomy. X1. Social History Social & Psychosocial Habits Alcohol 06/11/2017 Alcohol Use History, Social Habits No Substance Abuse 06/11/2017 Recreational Drug Use History No Tobacco 06/11/2017 Smoking Status Never smoker . Physical Examination VS/Measurements No qualifying data available General: Alert and oriented. Eye: Pupils are equal, round and reactive to light. HENT: Normocephalic. Neck: Supple, No carotid bruit, No jugular venous distention. Respiratory: Lungs are clear to auscultation, Respirations are non-labored, Breath sounds are equal. Cardiovascular: Normal rate, Regular rhythm, No murmur, No gallop, Good pulses equal in all extremities. Gastrointestinal: Soft, Non-tender, Non-distended, Normal bowel sounds. Musculoskeletal: Normal range of motion, Normal strength. Integumentary: Warm, Dry, [place]. Neurologic: Alert, Oriented. Psychiatric: Cooperative. Review / Management No qualifying data available Cardiac Markers (Current Encounter/Past 24 Hours) No Cardiac Marker Results Found (Past 24 Hours) Blood Gases (Current Encounter/Past 24 Hours) No Blood Gas Results Found (Past 24 Hours) No Radiology Results Found Results review: No qualifying data available. Impression and Plan IMPRESSION: * Chest pain Abnormal stress test * Obesity PLAN; Cardiac cath with possible catheter based intervention. Risks, benefits, and alternative therapy discussed in detail. She has given verbal and written consent. documented in this encounter Plan of Treatment Upcoming Encounters Date Type Department Care Team (Late st Contact Info) Description 12/28/2024 11:00 AM EST Office Visit [facility] Gastroenterology [address] [place] [address] Christopher Mcghee MD [address] [facility] [address] [place] [address] documented as of this encounter Visit Diagnoses Not on filedocumented in this encounter Care Teams Combination Presser Relationship Specialty Start Date End Date Uyen Hines MD [address] [place] [phone] PCP - General Family Medicine 02/11/23 Gee Quan APRN [address] [place] [address] Nurse Practitioner 02/24/23 documented as of this encounter
--- OUTSIDE RECORDS SUMMARY | 2024-10-19 10:52 | XMS_ITS | Encounter Summary ---
Author Organization [employer] Address [address] [place] [address] Care Team Providers Care Facility Environmental Technician Name Role Phone Uyen Hines MD Primary Care Provider [phone] Gee Quan AIR HOSE COUPLER Unavailable [phone] Encounter Details Date Type Department Care Team (Late st Contact Info) Description 12/11/2020 Transcribed Document [facility] [place] [address] Ebony Clark MD [address] [place] [address] Social History Tobacco Use Types Packs/Day Years Used Date Smoking Tobacco: Never Assessed Comments Unknown Sex and Gender Information Value Date Recorded Sex Assigned at Not on file Legal Sex Female 5:55 PM CDT Gender Identity Not on file Sexual Orientation Not on file documented as of this encounter Miscellaneous Notes * Cerner Conversion Note - Historical ProviderMD - 12/11/2020 4:07 PM COMPOSING MACHINE OPERATOR Electronically signed by Meredith [facility] Conversion Golf Manager Cerner at 03/14/2023 6:06 PM CDT documented in this encounter Plan of Treatment Upcoming Encounters Date Type Department Care Team (Late st Contact Info) Description 12/28/2024 11:00 AM EST Office Visit [facility] Gastroenterology [address] [place] [address] Christopher Mcghee MD [address] [place] [address] documented as of this encounter Visit Diagnoses Not on filedocumented in this encounter Care Teams Facility Environmental Technician Relationship Specialty Start Date End Date Uyen Hines MD [address] [place] [phone] PCP - General Family Medicine 02/11/23 Gee Quan, CAMELIA [address] [place] [address] Nurse Practitioner 02/24/23 documented as of this encounter
--- OUTSIDE RECORDS SUMMARY | 2024-10-19 10:52 | XMS_ITS | Encounter Summary ---
Author Organization [facility] Address [address] [place] [address] Care Team Providers Care Vocational Nurse Lvn Name Role Phone Uyen Hines MD Primary Care Provider [phone] Telma Smith INSTRUMENT REPAIRER Unavailable [phone] Reason for Referral * Consultation (Routine) - Authorized Specialty Diagnoses / Procedures Referred By Christopher yuan Referred To Contact Endocrinology Diagnoses Morbid obesity with body mass index (BMI) of 40.0 or higher (CMS/HCC) Kajal Smith MD [address] [address] Phone: tel: fax: [facility] [address], [address] [place] [address] Phone: tel: fax: Referral ID Status Reason Start Date Expiration Date V isits Requested Visits Authorized [id number] Authorized 09/02/2024 03/04/2026 1 1 Reason for Visit * Reason Comments Obesity * Consultation (Routine) - Closed Specialty Diagnoses / Procedures Referred By Contac t Referred To Contact Endocrinology Diagnoses Morbid obesity with body mass index (BMI) of 40.0 or higher (CMS/HCC) Rigoberto Graves MD [address] [address] Phone: tel: fax: [facility] Endocrinology [address] , [address] [place] [address] Phone: tel: fax: Referral ID Status Reason Start Date Expiration Date Visits Re quested Visits Authorized [id number] Closed 05/28/2024 11/27/2025 1 1 Encounter Details Date Type Department Care Team (Late st Contact Info) Description 09/02/2024 9:40 AM EDT Consult [facility] Endocrinology [address] [place] [address] Kajal Smith MD [address] [place] [address] Steven's thyroiditis (Primary Dx); Morbid obesity with body mass index (BMI) of 40.0 or higher (CMS/HCC); Anxiety; Depression, unspecified depression type; Other migraine without status migrainosus, not intractable; Weight loss counseling, encounter for; Encounter for nutritional counseling Social History Tobacco Use Types Packs/Day Years [...] Sign Reading Time Taken Comments Blood Pressure 121/90 09/02/2024 9:51 AM EDT Pulse 80 09/02/2024 9:51 AM EDT Temperature - - Respiratory Rate - - Oxygen Saturation - - Inhaled Oxygen Concentration - - Weight 107 kg (234 lb 12.6 oz) 09/02/2024 9:51 A M EDT Height 165.1 cm (5' 5 ) 09/02/2024 9:51 AM EDT Body Mass Index 39.07 09/02/2024 9:51 AM EDT documented in this encounter Miscellaneous Notes * Patient Instructions - Kajal Smith MD - 09/02/2024 9:40 AM EDT ACTION GOALS: Check weight once/twice a week. Cut down sugar sweetened beverages to 1-2 a day. Eat at least 2 meals a day. Eat 2 fruits(strawberries,blueberries,blackberries,oranges,grapes) and 2 vegetables per day. Discussed MYPLATE. Nutrition referral placed. Physical Activity: start walking 15 min-20 mins 3 times a week. Medical therapy: start wegovy 0.25mg weekly. * Progress Notes - Kajal Smith MD - 09/02/2024 9:40 AM EDT Images from the original note were not included. Subjective Chief Complaint Patient presents with Weight Loss HPI Tessie Roa [facility] for weight management. Referred by WEIGHT HISTORY - lowest weight as an adult 158 lbs Heaviest weight 234 lbs Rate of weight gain/any inciting factors progressive through years. Tried any Weight loss programs - tried some pills (phentermine) in the past , tried different diets What worked best in your opinion in your prior weight loss journey? Phentermine helped but gained the weight back. Any Stressors - financial stressors. She feels tired and oversleep a lot. FAMILY WEIGHT HISTORY mom and dad struggled with weight issues. Both are overweight. NUTRITIONAL HISTORY Do you record your food- no Do you skip meals- yes How often do you eat the following foods- -Whole grains 2-3 times a week -Fruits 2-3 times a week -Vegetables Daily -Meat Daily -dairy 2-3 times a week -Fried food/snacks (chips crackers pop corn) Once a month -Eat Sweets Once a week -sugar sweetened beverages daily-regular soda, regular gatorade. -High sodium processed foods (canned soup pasta, frozen/packaged meal, chips) Daily -Ho often do you Eat out- once a month. How much Water do you drink per day - 2 bottles.32 ounces Do you Prepare own meals - yes Who does Grocery shopping for home - self 24 hour dietary recall Breakfast buritto , hashbrown and soda yesterday. Had endoscope yesterday so did not eat anything yesterday for the rest of the day. 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 No of flight of stairs/daily walking steps- N/A Types of physical activities that you enjoy ( walking, running, swimming, hitting the gym, dancing)walking SURGICAL- no gastric bypass/ any Bariatric surgery/Heart surgeries SOCIAL HISTORY - no h/o substance/alcohol abuse/tobacco use. Eating disorders -no emotional stress night eating binge eating boredom eating. Not working currently. Lives with and daughter. The following portions of the chart were reviewed this encounter and updated as appropriate: Tobacco Allergies Meds Problems Med Hx Surg Hx Fam Hx Review of Systems Constitutional: negative Respiratory: Negative. Cardiovascular: Negative. Gastrointestinal: Heart burn present. Musculoskeletal: hip pain left side present. Neurological: Negative. Psychiatric/Behavioral: Negative. Objective []Expand by Default Physical Exam Vitals reviewed. Constitutional: Appearance: obese. Cardiovascular: Rate and Rhythm: Normal rate and regular rhythm. Heart sounds: Normal heart sounds. Pulmonary: Effort: Pulmonary effort is normal. Breath sounds: Normal breath sounds. Neurological: Mental Status: She is alert and oriented to person, place, and time. Psychiatric: Mood and Affect: Mood normal. Behavior: Behavior normal. Assessment/Plan Obesity is a chronic, progressive disease resulting in metabolic, biomechanical and psychosocial dysfunction and associated with multiple Comorbidities like GERD, anxiety, depression, hypothyroidism,AI and esonophilic esophagitis,migraine. A reduction of 5%-10% or more of current body weight will improve health parameters. Weight today- 234 lbs BMI- 39.07 Weight goal- ultimately 158 lbs but Initial goal <200 lbs. ACTION GOALS: Check weight once/twice a week. Cut down sugar sweetened beverages to 1-2 a day. Eat at least 2 meals a day. Eat 2 fruits(strawberries,blueberries,blackberries,oranges,grapes) and 2 vegetables per day. Discussed MYPLATE. Nutrition referral placed. Physical Activity: start walking 15 min-20 mins 3 times a week. Medical therapy: start wegovy 0.25mg weekly. CD. Risks and benefits of medication discussed with patient and the patient verbalizes understanding. Follow up- 12 weeks. I personally spent a total of 60 minutes on this encounter. This time includes face to face with patient, counseling and discussion and/or coordination of care. documented in this encounter Plan of Treatment Upcoming Encounters Date Type Department Care Team (Late st Contact Info) Description 12/21/2024 12:40 PM EST Office Visit [facility] Endocrinology [address], [address] [place] [address] Kajal Smith MD [address] [phone] 01/25/2025 3:20 PM EST Office Visit [facility] Nephrology, Bone & Mineral Metabolism [address] [facility], [address] [place] [address] David Winslow MD [address] [facility] [address] [place] [address] 03/25/2025 11:20 AM EDT Office Visit [facility] Endocrinology [address], [address] [place] [phone] (1), Rigoberto Graves Fellow Scheduled Referrals Name Type Priority Associated Diagnoses Order Schedule Ambulatory Referral to [facility] Diabetes Nutrition Outpatient Referral Routine Morbid obesity with body mass index (BMI) of 40.0 or higher (CMS/HCC) 1 Occurrences starting 09/02/2024 until 03/03/2026 documented as of this encounter Visit Diagnoses Diagnosis Steven's thyroiditis- Primary Chronic lymphocytic thyroiditis Morbid obesity with body mass index (BMI) of 40.0 or higher (CMS/HCC) Anxiety Anxiety state, unspecified Depression, unspecified depression type Other migraine without status migrainosus, not intractable Weight loss counseling, encounter for Encounter for nutritional counseling documented in this encounter Additional Health Concerns Assessment Noted Time A fall risk assessment has been complete d for the patient 07/12/2024 3:08 PM EDT A Body Mass Index follow-up plan has been documented for the patient 09/02/2024 10:43 AM EDT documented as of this encounter Care Teams Vocational Nurse Lvn Relationship Specialty Start Date End Date Uyen Hines MD [address] [place] [address] PCP - General 05/31/22 Telma Smith APRN [id number] [place] [address] Nurse Practitioner Neurosurgery 09/01/23 documented as of this encounter
--- OUTSIDE RECORDS SUMMARY | 2024-10-19 10:52 | XMS_ITS | Clinical Summary ---
Author Organization [facility] Address [address] [place] [address] Care Team Providers Care Lamp Decorator Name Role Phone Uyen Hines MD Primary Care Provider [phone] Telma Smith COMFORT STATION ATTENDANT Unavailable [phone] Allergies Active Allergy Reactions Criticality Noted Date Comments Nsaids Other - please docum ent in the comment field Low 05/31/2022 Kidney Medications ALPRAZolam (Xanax) 1 MG tablet Take 1 tablet (1 mg) by mouth 3 (three) times a day if needed. 03/27/20 22 Active escitalopram (Lexapro) 20 MG tablet Take 1 tablet (20 mg) by mouth 1 (one) time each day. 03/27/20 22 Active acetaminophen (Tylenol) 500 MG tablet Take 1 tablet (500 mg) by mouth if needed. Active pantoprazole (Protonix) 40 MG EC tablet Take 1 tablet (40 mg) by mouth twice a day. 09/25/20 22 Active tiZANidine (Zanaflex) 4 MG tablet Take 1 tablet (4 mg) by mouth every night. 03/25/20 23 Active Ubrelvy 100 MG tablet TAKE 1 TABLET BY MOUTH NEEDED FOR MIGRAINE HEADACHE AT ONSET OF SYMPTOMS. MAY REPEAT AFTER 2 HOURS IF SYMPTOMS PERSIST. MAX OF 2 IN 24 HOURS. MAX OF 4 PER WEEK. 03/25/20 23 Active Qulipta 60 MG tablet 08/28/20 23 Active busPIRone (Buspar) 10 MG tablet Take 1 tablet (10 mg) by mouth 3 (three) times a day. DIRECTED 08/30/20 23 Active lamoTRIgine (LaMICtal) 25 MG tablet TAKE 2 TABLETS BY MOUTH ONCE DAILY DIRECTED 08/30/20 Active solifenacin (VESIcare) 10 MG tablet Take 1 tablet (10 mg) by mouth 1 (one) time each day. 07/10/20 23 Active pregabalin (Lyrica) 75 MG capsuleIndications :Lumbar radiculopathy Take 1 capsule (75 mg) by mouth 2 (two) times a day for 14 days. 28 capsule 09/01/20 23 029 Active levothyroxine (Synthroid, Levoxyl) 100 MCG tabletIndications: Acquired hypothyroidism Take 1 tablet (100 mcg) by mouth 1 (one) time each day. 90 tablet 3 03/17/20 24 025 Active Additional Information Patient not taking.Reported on 09/02/2024 Vraylar 1.5 MG capsule Take 1 capsule (1.5 mg) by mouth. 03/26/20 24 Active colestipol (Colestid) 1 g tablet Take 1 tablet (1 g) by mouth twice a day. 04/09/20 24 025 Active Dupixent 300 MG/2ML solution pen-injector 03/16/20 24 Active pancrelipase, Hpp-Rkez-Wtny, (Creon) 07248-957400 units capsule delayed-release particles capsule Take 2 capsule by mouth 3 times daily with meals and 1 cap with snacks.. 05/05/20 24 Active prazosin (Minipress) 2 MG capsule 04/14/20 24 Active tolterodine LA (Detrol LA) 4 MG 24 hr capsule 02/27/20 24 Active levothyroxine (Synthroid, Levoxyl) 150 MCG tablet Take 1 tablet (150 mcg) by mouth 1 (one) time each day. 06/24/20 24 Active Budesonide (Eohilia) 2 MG/10ML suspension Take 2 mg by mouth twice a day. 07/08/20 24 Active fludrocortisone (Florinef) 0.1 MG tabletIndications: Adrenal insufficiency (CMS/HCC) Take 1 tablet (0.1 mg) by mouth 1 (one) time each day. Patient must attend follow-up on 09/24/24.for additional refills. Carmelina Lion RN 30 tablet 09/24/20 Active hydrocortisone (Cortef) 5 MG tabletIndications: Adrenal insufficiency (CMS/HCC) Take 2 tablets by mouth in the morning and 1 tablet in the PM. 100 tablet 09/24/20 Active hydrocortisone (Cortef) 5 MG tabletIndications: Adrenal insufficiency (CMS/HCC) Take 2 tablets by mouth in the morning and 1 tablet in the PM. 100 tablet 05/28/20 Discontinu ed(Reorder ) fludrocortisone (Florinef) 0.1 MG tabletIndications: Adrenal insufficiency (CMS/HCC) Take 1 tablet (0.1 mg) by mouth 1 (one) time each day. Patient must attend follow-up on 09/24/24.for additional refills. Carmelina Lion RN 30 tablet 08/26/20 24 Discontinu ed(Reorder ) Semaglutide-Weight Management (Wegovy) 0.25 MG/0.5ML solution auto-injector Inject 0.25 mg under the skin 1 (one) time per week. 3 mL 09/02/20 Hospital, Clinic, or Other Facility Administered Medication Ordered Dose Route Frequency Start Date End Date Status cosyntropin (Cortrosyn) injection 250 mcgIndications:Adrenal insufficiency (CMS/HCC) 250 mcg IM Once 03/10/2024 A ctive Active Problems Problem Noted Date Diagnosed Date Adrenal insufficiency 03/08/2024 Class III obesity with body mass index (BMI) of 40.0 or higher 09/01/2023 Encounters Date Type Department Care Team Description 09/24/2024 9:20 AM EDT Office Visit [facility] End[facility]inology [address], [address] [place] [address] Rigoberto Graves MD (1), Rigoberto Graves Fellow Adrenal insufficiency (CMS/HCC) 09/24/2024 Travel 09/02/2024 9:40 AM EDT Consult [facility] [address], [address] [place] [address] Kajal Smith MD Steven's thyroiditis (Primary Dx); Morbid obesity with body mass index (BMI) of 40.0 or higher ([facility]); Anxiety; Depression, unspecified depression type; Other migraine without status migrainosus, not intractable; Weight loss counseling, encounter for; Encounter for nutritional counseling 09/02/2024 Travel 08/26/2024 Telephone [facility] [address], [address] [place] [address] Carmelina Lion RN 08/25/2024 Refill [facility] [address], [address] [place] [address] Rigoberto Graves MD Adrenal insufficiency ([facility]) 08/16/2024 2:00 PM EDT - 08/16/2024 11:59 PM EDT Hospital Encounter [facility] [address] [place] [address] Nephrolithiasis Discharge Disposition: Home or Self Care 08/16/2024 Travel from Last 3 Months Family History Medical History Relation Name Comments Colon cancer Other 1 Breast cancer Other 2 Ovarian cancer Other 3 Ovarian cancer Other 4 Relation Name Status Comments Other 1 Other 2 Other 3 Other 4 Social History Tobacco Use Types Packs/Day Years Used Date Smoking Tobacco: Never Smokeless Tobacco: Never Tobacco Cessation:Counseling Given: Not Answered Alcohol Use Standard Drinks/Week Comments Not Currently [...] Sign Reading Time Taken Comments Blood Pressure 134/89 09/24/2024 9:40 AM EDT Pulse 73 09/24/2024 9:40 AM EDT Temperature 36.7 ??C (98.1 ??F) 07/12/2024 3:01 PM ED T Respiratory Rate 18 09/01/2023 2:19 PM EDT Oxygen Saturation 97% 07/12/2024 3:01 PM EDT Inhaled Oxygen Concentration - - Weight 106 kg (232 lb 12.9 oz) 09/24/2024 9:04 A M EDT Height 165.1 cm (5' 5 ) 09/24/2024 9:04 AM EDT Body Mass Index 38.74 09/24/2024 9:04 AM EDT Plan of Treatment Upcoming Encounters Date Type Department Care Team (Late st Contact Info) Description 12/21/2024 12:40 PM EST Office Visit [facility] Endocrinology [address], [address] [place] [address] Kajal Smith MD [address] [place] [address] 01/25/2025 3:20 PM EST Office Visit [facility] Nephrology, Bone & Mineral Metabolism [address], [address] [place] [address] David Winslow MD [address] [place] [address] 03/25/2025 11:20 AM EDT Office Visit [facility] Endocrinology [address], [address] [place] [address] (1), Rigoberto Graves Fellow Health Maintenance Due Date Last Done Comments [facility]-HIV Screening 1982 [facility]-Hepatitis C Screening 1982 [facility]-Infant/Child/Adol SDOH Screenings 1982 [facility]-Varicella Vaccines (1 of 2 - 13+ 2-dose series) 1995 [facility]- SDOH Screenings 2000 [facility]-Adult SDOH Screenings 2000 [facility]-DTaP,Tdap,and Td Vaccines (1 - Tdap) 2001 [facility]-Hepatitis B Vaccines (1 of 3 - 19+ 3-dose series) 2001 [facility]-Pap Smear 2003 [facility]-Cervical Cancer Screening 2012 [facility]-HPV/Cotest 2012 [id number] Vaccine (2023- season) 2024 [facility]-Influenza Vaccine (#1) 2024 10/01/2022, [facility]-Depression Screening 07/12/2025 07/12/2024 [facility]-Zoster Vaccines (1 of 2) 2032 [facility]-RSV Vaccine: 60+ Years or (1 - 1-dose 75+ series) 2057 [facility]-Obesity Intervention Completed 024, 09/24/2024, 09/24/2024, Additional history exists [facility]-HIB Vaccines Aged Out No longer e ligible based on patient's age to complete this topic [facility]-HPV Vaccines Aged Out No longer e ligible based on patient's age to complete this topic [facility]-Hepatitis A Vaccines Aged Out No longer eligible based on patient's age to complete this topic [facility]-IPV Vaccines Aged Out No longer e ligible based on patient's age to complete this topic [facility]-Pneumococcal Vaccine: Pediatrics (0 to 5 Years) and At-Risk Patients (6 to 64 Years) Aged Out No longer eligible based on patient's age to complete this topic [facility]-Rotavirus Vaccines Aged Out No lo nger eligible based on patient's age to complete this topic Procedures Procedure Name Priority Date/Time Associated Diagnosis Comments FREE T4, PLASMA Routine 09/24/2024 10:59 AM EDT Adrenal insufficiency (CMS/HCC) TSH Routine 09/24/2024 10:59 AM EDT Adrenal insufficiency (CMS/HCC) US RENAL COMPLETE Routine 08/16/2024 2:5 2 PM EDT Nephrolithiasis from Last 3 Months Results * TSH (09/24/2024 10:59 AM EDT) Thyroid Stimulating Hormone, Plasma 1.61 0.40 - 4.20 uIU/mL 09/24/2024 6:55 PM EDT [facility] Blood Venous blood specimen / Unknown Venipuncture / Unknown 09/24/2024 10:59 AM EDT 09/24/2024 10:59 AM EDT Narrative [facility] - 09/24/2024 6:55 PM EDT Trimester Specific Ranges ?TSH (??IU/mL) 1st Trimester ??0.1 ??- 3.0 2nd Trimester ??0.19 - 4.06 3rd Trimester ??0.3 ??- 3.7 Rigoberto Graves MD LAB BLOOD ORDERABLES Final Resu lt Performing Organization Address [facility] Co de Phone Number [facility] [address] [place] [address] * T4, free (09/24/2024 10:59 AM EDT) Free T4, Plasma 1.7 0.8 - 1.7 ng/dL 09/24/2024 6:55 PM EDT [facility] Blood Venous blood specimen / Unknown Venipuncture / Unknown 09/24/2024 10:59 AM EDT 09/24/2024 10:59 AM EDT Narrative [facility] - 09/24/2024 6:55 PM EDT Free T4 Trimester Specific Ranges 1st Trimester ??0.9??- 1.50 ng/dL 2nd Trimester ??0.7 - 1.40 ng/dL 3rd Trimester ??0.7??- 1.24 ng/dL Rigoberto Graves MD LAB BLOOD ORDERABLES Final Resu lt Performing Organization Address City/[facility]/ZIP Co de Phone Number [facility] [address] [place] [address] * US Renal Complete (08/16/2024 2:52 PM EDT) Anatomical Region Laterality Modality Kidney Ultrasound Impressions 08/16/2024 3:28 PM EDT Probable bilateral renal calculi. Consider stone protocol CT for definitive confirmation No hydronephrosis. CRITICAL RESULT: No. COMMUNICATION: Per this written report. Drafted by Sinan Daugherty MD on 08/16/2024 3:26 PM Final report signed by Sinan Daugherty MD on 08/16/2024 3:28 PM Narrative 08/16/2024 3:28 PM EDT CLINICAL INDICATION: nephrolithiasis TECHNIQUE: Multiplanar static and cine beltran scale ultrasound images of the kidneys and urinary bladder were obtained, accompanied by selective color Doppler ultrasound images. COMPARISON: None. FINDINGS: Right Kidney: Normal in size and echogenicity. Length 9 cm. No hydronephrosis. Questionable parenchymal scarring. Punctate echogenic focus suggestive of calculus. ?? Left Kidney: Normal in size and echogenicity. Length 10.1 cm. No hydronephrosis or discernible mass. Echogenic focus at the lower pole may represent a calculus.. ?? Urinary bladder: Somewhat decompressed but grossly unremarkable. Procedure Note Sinan Daugherty MD - 08/16/2024 CLINICAL INDICATION: nephrolithiasis TECHNIQUE: Multiplanar static and cine beltran scale ultrasound images of the kidneysand urinary bladder were obtained, accompanied by selective color Dopplerultrasound images. COMPARISON: None. FINDINGS: Right Kidney: Normal in size and echogenicity. Length 9 cm. Nohydronephrosis. Questionable parenchymal scarring. Punctate echogenicfocus suggestive of calculus. Left Kidney: Normal in size and echogenicity. Length 10.1 cm. Nohydronephrosis or discernible mass. Echogenic focus at the lower pole mayrepresent a calculus.. Urinary bladder: Somewhat decompressed but grossly unremarkable. IMPRESSION: Probable bilateral renal calculi. Consider stone protocol CT fordefinitive confirmation No hydronephrosis. CRITICAL RESULT: No. COMMUNICATION: Per this written report. Drafted by Sinan Daugherty MD on 08/16/2024 3:26 PM Final report signed by Sinan Daugherty MD on 08/16/2024 3:28 PM Te Deshpande MD [facility] PROCEDURES Final Result from Last 3 Months Insurance [employer] Care Teams Lamp Decorator Relationship Specialty Start Date End Date Uyen Hines MD [address] [place] [id number] PCP - General 05/31/22 Telma Smith APRN [address] [place] [address] Nurse Practitioner Neurosurgery 09/01/23
--- OUTSIDE RECORDS SUMMARY | 2024-10-19 10:52 | XMS_ITS | Encounter Summary ---
Author Organization [facility] Address [address] [place] [address] Care Team Providers Care Straw Hat Washer Operator Name Role Phone Uyen Hines MD Primary Care Provider [phone] Telma Smith MEDICAL SERVICE REPRESENTATIVE Unavailable [phone] Reason for Visit * Reason Comments Adrenal insufficiency Encounter Details Date Type Department Care Team (Late st Contact Info) Description 09/24/2024 9:20 AM EDT Office Visit [facility] Endocrinology [address], [address] [place] [address] Rigoberto Graves MD [address] [place] [address] (1), Rigoberto Graves Fellow Adrenal insufficiency (CMS/HCC) Social History Tobacco Use [...] Pulse 73 09/24/2024 9:40 AM EDT Temperature - - Respiratory Rate - - Oxygen Saturation - - Inhaled Oxygen Concentration - - Weight 106 kg (232 lb 12.9 oz) 09/24/2024 9:04 A M EDT Height 165.1 cm (5' 5 ) 09/24/2024 9:04 AM EDT Body Mass Index 38.74 09/24/2024 9:04 AM EDT documented in this encounter Miscellaneous Notes * Progress Notes - Carmen Soriano - 09/24/2024 9:20 AM EDT Subjective HPI Mrs. Tessie Roa is a 43yo F with PMH of CKDs, HTN, Hypothyroidism, GERD, depression who presents as a follow up for of Adrenal Insufficiency. From previous visit: Patient was admitted to [facility] in January for worsening fatigue, weakness, and low blood pressure. She was admitted as a stroke alert because she had left sided weakness. Subsequent workup showed no evidence of CVA. She was never found to have any bacterial infections causing her hypotension with infectious workup grossly unremarkable. Subsequent workup showed a cortisol level of 2 and there was concern for adrenal insufficiency. Endo was consulted by phone while pt was admitted to [facility] [place] andshe was started on hydrocortisone 30mg qAM and 20mg qPM. She is seen for consultation in February for concern for possible primary adrenal insufficiency. She states her BP has improved but states her symptoms of fatigue and weakness have not improved at all. She brought her BP log with her and normal BP range from 98/60 - 108/70. She continues to endorses generalized weakness throughout her body and profound fatigue. She states symptoms have not improved at all since initiation of steroids. She endorses headaches that are different than her prior migraines. She also endorses worsen peripheral vision loss that is present on exam today. Denies any changes in weight. Orthostatics at consult were negative. Today, patient still endorsing fatigue and weakness but says it has improved a bit since last visit. Endorses neck pain, dizziness, feeling unbalanced a few times daily. Denies issues with low BP since last visit; she checks regularly and it is normally in 130s/80s. Denies n/v. Is taking fludrocortisone 0.1mg daily, hydrocortisone 10mg AM and 5mg PM. The following portions of the chart were reviewed this encounter and updated as appropriate: Review of Systems Constitutional: Positive for fatigue. Negative for chills and fever. HENT: Negative. Eyes: Negative for visual disturbance. Respiratory: Negative for shortness of breath. Cardiovascular: Negative for chest pain. Gastrointestinal: Negative for nausea and vomiting. Genitourinary: Negative. Musculoskeletal: Positive for neck pain. Negative for back pain. Skin: Negative. Neurological: Positive for dizziness and weakness. Negative for seizures, syncope, facial asymmetry, speech difficulty and headaches. Hematological: Negative. Psychiatric/Behavioral: Negative. Objective Physical Exam Constitutional: Appearance: Normal appearance. HENT: Head: Normocephalic and atraumatic. Eyes: General: No scleral icterus. Extraocular Movements: Extraocular movements intact. Cardiovascular: Rate and Rhythm: Normal rate. Pulmonary: Effort: Pulmonary effort is normal. Abdominal: General: Abdomen is flat. There is no distension. Tenderness: There is no abdominal tenderness. Musculoskeletal: Cervical back: Normal range of motion. Right lower leg: No edema. Left lower leg: No edema. Skin: General: Skin is warm and dry. Neurological: General: No focal deficit present. Mental Status: She is alert and oriented to person, place, and time. Psychiatric: Mood and Affect: Mood normal. Behavior: Behavior normal. Assessment/Plan There are no diagnoses linked to this encounter. Concern for Adrenal Insufficiency Worsening Fatigue, Weakness -pt endorsed sudden onset fatigue, weakness, and profound hypotension end of January. Workup at [facility] [place] showed no evidence fo bacterial infection, and cortisol level was said to be 2; at the time of that phone call, ACTH was pending, she was subsequently stared on 30mg hydrocortisone qAM and 20mg qPM and symptoms did not improve -We previously performed orthostatic vitals, and BP and pulse were robust and did not change with sitting/dangling. -cosyntropin stim test with max response of 14.6 and ACTH 35.7 - Patient has been on hydrocortisone 10mg in AM, 5mg in PM and fludrocortisone 0.1mg daily. - Labs acquired at last visit with cortisol and ACTH within normal. 21 hydroxylase antibody negative. Aldosterone <3.0 and renin 0.12 PLAN - Continue hydrocortisone 10mg in AM, 5mg in PM and fludrocortisone 0.1mg daily Hashimotos Thyroiditis -currently on levothyroxine 150 mcg daily - 02/2024 TSH <0.01 and Free T4 1.8 PLAN - repeat thyroid labs today Obesity -The patient received dietary education because they have an above normal BMI. and The patient received exercise education because they have an above normal BMI. - Patient did follow up with weight management clinic in August FU in 6 months Electronically signed by: Lane Hui [facility] ENDOCRINOLOGY [address] [place]. [address] PHONE [phone] FAX: [phone] Cosigned by Rigoberto Graves MD at 09/27/2024 12:20 PM EST Associated attestation - Rigoberto Graves MD - 09/27/2024 12:20 PM EST I saw and evaluated the patient with the medical/CONTRACT ACCOUNTANT/PA student. I discussed the case with the medical/CONTRACT ACCOUNTANT/PA student and agree with the findings and plan as documented. I personally performed the Examand Medical Decision Making. documented in this encounter Plan of Treatment Upcoming Encounters Date Type Department Care Team (Late st Contact Info) Description 12/21/2024 12:40 PM EST Office Visit [facility] Endocrinology [address], [address] [place] [address] [place] [address] [place] [address] [place] [address] 01/25/2025 3:20 PM EST Office Visit [facility] Nephrology, Bone & Mineral Metabolism [address], [address] [place] [address] David Winslow MD [address] [address] 03/25/2025 11:20 AM EDT Office Visit [facility] Endocrinology [address], [address] [place] [address] (1), Rigoberto Graves Fellow documented as of this encounter Results * T4, free (09/24/2024 10:59 AM EDT) Free T4, Plasma 1.7 0.8 - 1.7 ng/dL 09/24/2024 6:55 PM EDT [facility] Blood Venous blood specimen / Unknown Venipuncture / Unknown 09/24/2024 10:59 AM EDT 09/24/2024 10:59 AM EDT Narrative [facility] - 09/24/2024 6:55 PM EDT Free T4 Trimester Specific Ranges 1st Trimester ??0.9??- 1.50 ng/dL 2nd Trimester ??0.7 - 1.40 ng/dL 3rd Trimester ??0.7??- 1.24 ng/dL us Rigoberto Graves MD LAB BLOOD ORDERABLES Final Resu lt [facility] [address] [place] [address] * TSH (09/24/2024 10:59 AM EDT) Thyroid Stimulating Hormone, Plasma 1.61 0.40 - 4.20 uIU/mL 09/24/2024 6:55 PM EDT [facility] Blood Venous blood specimen / Unknown Venipuncture / Unknown 09/24/2024 10:59 AM EDT 09/24/2024 10:59 AM EDT Narrative [facility] - 09/24/2024 6:55 PM EDT Trimester Specific Ranges ?TSH (??IU/mL) 1st Trimester ??0.1 ??- 3.0 2nd Trimester ??0.19 - 4.06 3rd Trimester ??0.3 ??- 3.7 us Rigoberto Graves MD LAB BLOOD ORDERABLES Final Resu lt [facility] [address] [place] [address] documented in this encounter Visit Diagnoses Diagnosis Adrenal insufficiency (CMS/HCC) Glucocorticoid deficiency documented in this encounter Additional Health Concerns Assessment Noted Time A fall risk assessment has been complete d for the patient 07/12/2024 3:08 PM EDT A Body Mass Index follow-up plan has been documented for the patient 09/24/2024 10:43 AM EDT documented as of this encounter Care Teams Straw Hat Washer Operator Relationship Specialty Start Date End Date Uyen Hines MD [address] [place] [address] PCP - General 05/31/22 Telma Smith APRN [address] [facility] [address] [place] [address] Nurse Practitioner Neurosurgery 09/01/23 documented as of this encounter
--- OUTSIDE RECORDS SUMMARY | 2024-10-19 10:52 | XMS_ITS | Encounter Summary ---
Author Organization [employer] Address [address] [facility] [place] [address] Care Team Providers Care Sales Systems Engineer Name Role Phone Uyen Hines MD Primary Care Provider [phone] Gee Quan MEDICAL CONSULTANT Unavailable [phone] Encounter Details Date Type Department Care Team (Late Contact Info) Description 12/11/2020 Historic Encounter [address] [address] ProviderMary Jane Historical Social History [...] Description 12/28/2024 11:00 AM EST Office Visit [facility] Gastroenterology [address] [place] [address] Christopher Mcghee MD [address] [facility] [address] [place] [address] documented as of this encounter Procedures Procedure Name Priority Date/Time Associated Diagnosis Comments URINALYSIS MICROSCOPIC ([facility] BKR DATA CONV) Routine 12/11/2020 2:27 PM EST URINALYSIS WITH MICROSCOPIC IF INDICATED Routine 12/11/2020 2:27 PM EST LIPASE Routine 12/11/2020 2:27 PM EST CORONAVIRUS 2019 NOVEL ([facility] BKR DATA CONV) Routine 12/11/2020 11:29 AM EST CBC W/ AUTO DIFF ([facility] BKR DATA CONV) Routine 12/11/2020 11:29 AM EST AUTOMATED DIFFERENTIAL ([facility] BKR DATA CONV) Routine 12/11/2020 11:29 AM EST CMP COMPREHENSIVE METABOLIC PANEL ([facility] BKR DATA CONV) Routine 12/11/2020 11:29 AM EST documented in this encounter Results * (ABNORMAL) Urinalysis with Microscopic If Indicated (12/11/2020 2:27 PM EST) Urine Type U CleanCatch 12/11/2020 4:29 PM EST Urine Color Yellow 12/11/2020 7:37 PM EST Comment: Substances that cause HIGHLY abnormal urine color may affect the accuracy of URINE CHEMISTRY reagent strip results due to colorimetric interference. ??These include visible levels of blood or bilirubin, drugs containing dyes, and some antibiotics such as nitrofurantoin and riboflavin which can cause markedly abnormal urine coloration. Urine Appearance Clear 12/11/2020 7:37 PM EST Urine Specific Phillips 1.009 1.005 - 1.030 12/11/2020 7:37 PM EST Urine pH Dipstick 6.0 6.0 - 8.0 12/11/2020 7:37 PM EST Urine Leukocyte Esterase Small(A) Negative 12/11/2020 7:37 PM EST Urine Nitrite Negative Negative 12/11/2020 7:37 PM EST Urine Protein Dipstick Negative Negative 12/11/2020 7:37 PM EST Urine Glucose Dipstick Negative Negative 12/11/2020 7:37 PM EST Urine Ketones Dipstick Negative Negative 12/11/2020 7:37 PM EST Urine Urobilinogen Dipstick 1.0 0.2 - 1.0 EU/dL 12/11/2020 7:37 PM EST Urine Bilirubin Dipstick Negative Negative 12/11/2020 7:37 PM EST Urine Blood Dipstick Negative Negative 12/11/2020 7:37 PM EST Urine 12/11/2020 2:27 PM EST 12/11/2020 7:33 PM EST [facility] Historical Provider URINE ORDERABLES Final Result Performing Organization Address City/[facility]/ZIP Co de Phone Number [facility] [address] [phone] * (ABNORMAL) URINALYSIS MICROSCOPIC ([facility] BKR DATA CONV) (12/11/2020 2:27 PM EST) Correlate UA Correlated Correlated 12/11/2020 7:49 PM EST Ur RBC 0-2(A) None Seen /HPF 12/11/2020 7:49 PM EST Ur WBC 5-10(A) None Seen /HPF 12/11/2020 7:49 PM EST Ur Bacteria Trace(A) None Seen 12/11/2020 7:49 PM EST Ur Epithelial Cells 5-10(A) None Seen /HPF 12/11/2020 7:49 PM EST Ur Calcium Oxalate Crystals Trace(A) 12/11/2020 7:49 PM EST Urine 12/11/2020 2:27 PM EST 12/11/2020 7:33 PM EST Narrative [facility] - 12/11/2020 7:49 PM EST Urine Microscopic added by System. [facility] Provider URINE ORDERABLES Final Result Performing Organization Address City/[facility]/ZIP Co de Phone Number [facility] [address] [phone] * LIPASE (12/11/2020 2:27 PM EST) Lipase Level 120 73 - 393 Units/Liter 12/11/2020 7:44 PM EST Blood 12/11/2020 2:27 PM EST 12/11/2020 7:37 PM EST [facility] Historical Provider PATHOLOGY/CYTOLOGY CORA HUERTAS Final Result [facility] [address] [place] [address], [facility] [phone] * (ABNORMAL) AUTOMATED DIFFERENTIAL ([facility] BKR DATA CONV) (12/11/2020 11:29 AM EST) Neut% 48.3 34.0 - 71.0 % 12/11/2020 4:42 PM EST Lymph% 33.2 19.3 - 53.0 % 12/11/2020 4:42 PM EST Bee% 9.1 4.7 - 12.5 % 12/11/2020 4:42 PM EST Eos% 8.0(H) 1.0 - 7.0 % 12/11/2020 4:42 PM EST Baso% 1.3(H) 0.0 - 1.0 % 12/11/2020 4:42 PM EST IG% 0 0 - 1 % 12/11/2020 4:42 PM EST Neut# 3.59 1.56 - 6.13 K/uL 12/11/2020 4:42 PM EST Lymph# 2.48 1.18 - 3.74 K/uL 12/11/2020 4:42 PM EST Bee# 0.68 0.24 - 0.82 K/uL 12/11/2020 4:42 PM EST Eos# 0.60(H) 0.04 - 0.54 K/uL 12/11/2020 4:42 PM EST Baso# 0.10(H) 0.01 - 0.08 K/uL 12/11/2020 4:42 PM EST IG# 0 0 - 0 x10(3)/uL 12/11/2020 4:42 PM EST Blood 12/11/2020 11:2 9 AM EST 12/11/2020 4:39 PM EST Narrative [facility] - 12/11/2020 4:44 PM EST Added by Discern Expert [facility] Historical Provider LAB BLOOD ORDERABLES Fi nal Result [facility] [address] [place] [address], [facility] [phone] * CBC W/ AUTO DIFF ([facility] BKR DATA CONV) (12/11/2020 11:29 AM EST) WBC 7.5 3.9 - 10.0 K/uL 12/11/2020 4:42 PM EST RBC 4.74 3.93 - 5.22 Million/uL 12/11/2020 4:42 PM EST Comment: No Red Blood Cell reference ranges defined for patients with an ? Unknown? gender. Please apply existing Male/Female reference ranges as clinically indicated. Assay ?RBC Male ??0 ??Minutes ??2 ??Months ??4.8 7.1 Female ??0 ??Minutes ??2 ??Months ??4.8 7.1 Male ??2 ??Months ??12 ??Years ??4 5.5 Female ??2 ??Months ??12 ??Years ??4 5.5 Male ??12 ??Years ??150 ??Years ??4.63 6.08 Female ??12 ??Years ??150 ??Years ??3.93 5.22 Hgb 14.6 11.2 - 15.7 Gram/dL 12/11/2020 4:42 PM EST Comment: No Hemoglobin reference ranges defined for patients with an ? Unknown? gender. Please apply existing Male/Female reference ranges as clinically indicated. Assay ?HGB Male ??0 ??Days ??1 ??Months ??12 23 Female ??0 ??Days ??1 ??Months ??12 23 Male ??1 ??Months ??2 ??Years ??10 14 Female ??1 ??Months ??2 ??Years ??10 14 Male ??2 ??Years ??12 ??Years ??11 16 Female ??2 ??Years ??12 ??Years ??11 16 Male ??12 ??Years ??150 ??Years ??13.7 17.5 Female ??12 ??Years ??150 ??Years ??11.2 15.7 Hct 43.3 34.1 - 44.9 % 12/11/2020 4:42 PM EST Comment: No Hematocrit reference ranges defined for patients with an ? Unknown? gender. Please apply existing Male/Female reference ranges as clinically indicated. Assay ?HCT Male ??0 ??Minutes ??1 ??Months ??42 66 Female ??0 ??Minutes ??1 ??Months ??42 66 Male ??1 ??Months ??2 ??Years ??31 42 Female ??1 ??Months ??2 ??Years ??31 42 Male ??2 ??Years ??12 ??Years ??33 46 Female ??2 ??Years ??12 ??Years ??33 46 Male ??12 ??Years ??150 ??Years ??40.1 51 Female ??12 ??Years ??150 ??Years ??34.1 44.9 MCV 91.4 79.0 - 94.8 fL 12/11/2020 4:42 PM EST MCH 30.8 25.6 - 32.2 pg 12/11/2020 4:42 PM EST MCHC 33.7 32.3 - 36.5 Gram/dL 12/11/2020 4:42 PM EST RDW 13.5 11.6 - 14.4 % 12/11/2020 4:42 PM EST Platelet Count 358 163 - 369 K/uL 12/11/2020 4:42 PM EST MPV 9.4 9.4 - 12.4 fL 12/11/2020 4:42 PM EST Slide Review No 12/11/2020 4:44 PM EST Blood 12/11/2020 11:2 9 AM EST 12/11/2020 4:39 PM EST [facility] Historical Provider LAB BLOOD ORDERABLES Fi nal Result [facility] [address] [place] [id number], [facility] [phone] * CORONAVIRUS 2019 NOVEL ([facility] BKR DATA CONV) (12/11/2020 11:29 AM EST) SARS-CoV-2 ([id number]) Negative Negative 12/11/2020 5:25 PM EST Comment: Testing was performed using RT-PCR methodology approved [...] performed according to the current CDC recommendations. Performing Lab: E Lab 5:25 PM EST Reason for Testing PUI Clinically Indicated 12/11/2020 4:29 PM EST First Test Yes 12/11/2020 4:29 PM EST Employed in Healthcare No 12/11/2020 4:29 PM EST Symptomatic as defined by CDC Yes 12/11/2020 4:29 PM EST Resident in congregate setting No 12/11/2020 4:29 PM EST No 12/11/2020 4:29 PM EST Hospitalized No 12/11/2020 4:29 PM EST ICU No 12/11/2020 4:29 PM EST 12/11/2020 11:2 9 AM EST 12/11/2020 4:39 PM EST [facility] Historical Provider BODY FLUIDS AND STOOLS ORDERABLES Final Result [facility] [address] [phone] * (ABNORMAL) CMP COMPREHENSIVE METABOLIC PANEL ([facility] BKR DATA CONV) (12/11/2020 11:29 AM EST) Sodium Level 137 136 - 146 mmol/L 12/11/2020 4:59 PM EST Potassium Level 4.0 3.5 - 5.1 mmol/L 12/11/2020 4:59 PM EST Chloride Level 106 102 - 112 mmol/L 12/11/2020 4:59 PM EST Carbon Dioxide Level 27 21 - 32 mmol/L 12/11/2020 4:59 PM EST Anion Gap 8(L) 9 - 20 12/11/2020 4:59 PM EST Calcium Level 9.6 8.5 - 10.1 mg/dL 12/11/2020 4:59 PM EST Glucose Level 92 74 - 106 mg/dL 12/11/2020 4:59 PM EST Comment: [employer] has become aware of sulfasalazine and sulfapyridine drug interference in the assays ALT, AST, T4, CKMB, glucose, and ammonia. The probability of misinterpretation of results for the assays is remote and would be limited to scenarios where a patient has taken the drug and had a blood sample drawn before clearance of the drug to a level that does not interfere with laboratory testing. Venipuncture should occur prior to administration of the drug. Blood Urea Nitrogen 8 7 - 22 mg/dL 12/11/2020 4:59 PM EST Creatinine Level 1.17(H) 0.55 - 1.02 mg/dL 12/11/2020 4:59 PM EST Bun/Creatinine 6.8(L) 8.0 - 20.0 12/11/2020 4:59 PM EST Albumin Level 3.6 3.4 - 5.0 Gram/dL 12/11/2020 4:59 PM EST Protein, Total 8.0 6.4 - 8.2 Gram/dL 12/11/2020 4:59 PM EST A/G Ratio 0.8(L) 1.1 - 2.5 12/11/2020 4:59 PM EST Alk Phos 73 27 - 136 Units/Lit er 12/11/2020 4:59 PM EST ALT 19 12 - 78 Units/Lit er 12/11/2020 4:59 PM EST Comment: [employer] has become aware of sulfasalazine and sulfapyridine drug interference in the assays ALT, AST, T4, CKMB, glucose, and ammonia. The probability of misinterpretation of results for the assays is remote and would be limited to scenarios where a patient has taken the drug and had a blood sample drawn before clearance of the drug to a level that does not interfere with laboratory testing. Venipuncture should occur prior to administration of the drug. AST 14 5 - 37 Units/Lit er 12/11/2020 4:59 PM EST Comment: [employer] has become aware of sulfasalazine and sulfapyridine drug interference in the assays ALT, AST, T4, CKMB, glucose, and ammonia. The probability of misinterpretation of results for the assays is remote and would be limited to scenarios where a patient has taken the drug and had a blood sample drawn before clearance of the drug to a level that does not interfere with laboratory testing. Venipuncture should occur prior to administration of the drug. Bilirubin, Total 0.5 0.2 - 1.3 mg/dL 12/11/2020 4:59 PM EST Comment: Total bilirubin results may be falsely elevated in patients undergoing treatment with eltrombopag (Promacta). Results should be correlated to clinical symptomology and additional laboratory testing including other markers for liver function, e.g., alanine aminotransferase, aspartate aminotransferase, alkaline phosphatase, and/or lactate dehydrogenase. Globulin 4.4 1.5 - 4.5 Gram/dL 12/11/2020 4:59 PM EST eGFR >60 >=60 mL/min/1. 73m2 12/11/2020 4:59 PM EST Comment: GFR <60 suggests chronic kidney disease, if found over 3 month period. GFR <15 indicates renal failure. eGFR NonAfrican 52(L) >=60 mL/min/1. 73m2 12/11/2020 4:59 PM EST Comment: GFR <60 suggests chronic kidney disease, if found over 3 month period. GFR <15 indicates renal failure. Blood 12/11/2020 11:2 9 AM EST 12/11/2020 4:39 PM EST [facility] Historical Provider LAB BLOOD ORDERABLES Fi nal Result [facility] [address] [phone] documented in this encounter Visit Diagnoses Not on filedocumented in this encounter Care Teams Sales Systems Engineer Relationship Specialty Start Date End Date Uyen Hines MD [address] [place] [address] PCP - General Family Medicine 02/11/23 Gee Quan APRN [address] [place] [address] Nurse Practitioner 02/24/23 documented as of this encounter
--- OUTSIDE RECORDS SUMMARY | 2024-10-19 10:53 | XMS_ITS | Encounter Summary ---
Author Organization [facility] Address [address] [place] [address] Care Team Providers Care Line Tender Flakeboard Name Role Phone Uyen Hines MD Primary Care Provider [phone] Telma Smith APRN Unavailable Encounter Details Date Type Department Care Team (Late Contact Info) Description 04/25/2023 Orders Only External Location [address] [place] [id number] Provider, External Social History Tobacco Use Types Packs/Day Years Used Date Smoking Tobacco: Never Smokeless Tobacco: Never Alcohol Use Standard Drinks/Week Comments Not Currently 0 (1 standard drink = 0.6 oz pur e alcohol) PHQ-2 Answer Date Recorded Patient Health Questionnaire-2 Score 0 05/31/2022 Comments Unknown Sex and Gender Information Value Date Recorded Sex Assigned at Not on file Legal Sex Female 7:35 PM EDT Gender Identity Not on file Sexual Orientation Not on file documented as of this encounter Plan of Treatment Upcoming Encounters Date Type Department Care Team (Late Contact Info) Description 12/21/2024 12:40 PM EST Office Visit [facility] Endocrinology [address] [place] [address] Kajal Smith MD [address] [place] [address] 01/25/2025 3:20 PM EST [facility] Nephrology, Bone & Mineral Metabolism [address] [facility], [address] [place] [address] David Winslow MD [address] [facility] [address] [place] [address] 03/25/2025 11:20 AM EDT [facility] [address] [facility], [address] [place] [address] (1), Rigoberto Graves Fellow documented as of this encounter Procedures Procedure Name Priority Date/Time Associated Diagnosis Comments MR OUTSIDE IMAGES 04/25/2023 11:04 AM EDT documented in this encounter Results * MR transfer of outside films (04/25/2023 11:04 AM EDT) Anatomical Region Laterality Modality Magnetic Resonan ce 04/25/2023 11:0 4 AM EDT us External Provider IMG MRI PROCEDURES Final Resul t documented in this encounter Visit Diagnoses Not on filedocumented in this encounter Additional Health Concerns Assessment Noted Time A fall risk assessment has been complete d for the patient 04/09/2023 11:45 AM EDT A Body Mass Index follow-up plan has been documented for the patient 04/10/2023 12:25 PM EDT documented as of this encounter Care Teams Line Tender Flakeboard Relationship Specialty Start Date End Date Uyen Hines MD [address] [place] [address] PCP - General 05/31/22 Telma Smith APRN [address] [place] [address] Nurse Practitioner Neurosurgery 09/01/23 documented as of this encounter
--- OUTSIDE RECORDS SUMMARY | 2024-10-19 10:53 | XMS_ITS | Encounter Summary ---
Author Organization [facility] Address [address] [place] [address] Care Team Providers Care Family Manager Name Role Phone Uyen Hines MD Primary Care Provider [phone] Telma Smith APRN Unavailable [phone] Encounter Details Date Type Department Care Team (Latest Contact Info) Description 03/12/2024 Travel Social History Tobacco Use Types Packs/Day Years Used Date Smoking Tobacco: Never Smokeless Tobacco: Never Alcohol Use Standard Drinks/Week Comments Not Currently 0 (1 standard drink = 0.6 oz pur e alcohol) PHQ-2 Answer Date Recorded Patient Health Questionnaire-2 Score 1 06/02/2023 PHQ-2A Answer Date Recorded Patient Health Questionnaire-2 [...] 12:40 PM EST Office Visit [facility] Endocrinology [address] , [address] [place] [address] Kajal Smith MD [address] [place] [address] 01/25/2025 3:20 PM EST Office Visit [facility] Nephrology, Bone & Mineral Metabolism [address] [facility], [address] [place] [address] David Winslow MD [address] [facility] [address] [place] [address] 03/25/2025 11:20 AM EDT [facility] [address], [address] [place] [address] (1), Rigoberto Graves Fellow documented as of this encounter Visit Diagnoses Not on filedocumented in this encounter Additional Health Concerns Assessment Noted Time A fall risk assessment has been complete d for the patient 09/01/2023 2:29 PM EDT A Body Mass Index follow-up plan has been documented for the patient 03/12/2024 10:36 AM EDT documented as of this encounter Care Teams Family Manager Relationship Specialty Start Date End Date Uyen Hines MD [address] [place] [address] PCP - General 05/31/22 Telma Smith APRN [address] [facility] [address] [place] [address] Nurse Practitioner Neurosurgery 09/01/23 documented as of this encounter
--- OUTSIDE RECORDS SUMMARY | 2024-10-19 10:53 | XMS_ITS | Encounter Summary ---
Author Organization [facility] Address [address] [place] [address] Care Team Providers Care Public Relations Studies Director Name Role Phone Uyen Hines MD Primary Care Provider [phone] Encounter Details Date Type Department Care Team (Latest Contact Info) Description 06/02/2023 Travel Social History Tobacco Use Types Packs/Day [...] Description 12/21/2024 12:40 PM EST Office Visit [facility] Endocrinology [address] [facility], [address] [place] [address] Kajal Smith MD [address] [place] [address] 01/25/2025 3:20 PM EST Office Visit [facility] Nephrology, Bone & Mineral Metabolism [address] [facility], [address] [place] [address] David Winslow MD [address] [address] 03/25/2025 11:20 AM EDT [facility] Endocrinology [address], [address] [place] [address] (1), Rigoberto Graves Fellow documented as of this encounter Visit Diagnoses Not on filedocumented in this encounter Additional Health Concerns Assessment Noted Time A fall risk assessment has been complete d for the patient 06/02/2023 10:42 AM EDT A Body Mass Index follow-up plan has been documented for the patient 04/10/2023 12:25 PM EDT documented as of this encounter Care Teams Public Relations Studies Director Relationship Specialty Start Date End Date Uyen Hines MD [address] [place] [address] PCP - General 05/31/22 documented as of this encounter
--- OUTSIDE RECORDS SUMMARY | 2024-10-19 10:53 | XMS_ITS | Encounter Summary ---
Author Organization [facility] Address [address] [place] [id number] Care Team Providers Care Knuckler Name Role Phone Uyen Hines MD Primary Care Provider [phone] Telma Smith RISK AND INSURANCE MANAGER Unavailable [phone] Reason for Visit * Reason Onset Date Comments Med Refill 03/15/2024 Encounter Details Date Type Department Care Team (Late st Contact Info) Description 03/15/2024 Refill [facility] Endocrinology [address] [facility], [address] [place] [address] Rigoberto Graves MD [address] [facility] [address] [place] [address] Social History Tobacco Use Types Packs/Day Years [...] encounter Miscellaneous Notes * Telephone Encounter - Adriana Alvarez PharmD - 04/06/2024 8:52 AM EDT Medication sent in on 04/01 * Telephone Encounter - Carmelina Lion RN - 03/24/2024 10:32 AM EDT Attempted to contact left for return call. Carmelina Lion RN * Telephone Encounter - Morgan Olivarez PharmD - 03/15/2024 4:25 PM EDT Refill request does not meet protocol. Sending to clinic for review. Additional info: Patient has not been prescribed this dose by provider, please review documented in this encounter Plan of Treatment Upcoming Encounters Date Type Department Care Team (Late st Contact Info) Description 12/21/2024 12:40 PM EST Office Visit [facility] Endocrinology [address] [facility], [address] [place] [address] [place] [address] [place] [address] 01/25/2025 3:20 PM EST Office [facility] Nephrology, Bone & Mineral Metabolism [address] [facility], [address] [place] [address] David Winslow MD [address] [address] 03/25/2025 11:20 AM EDT Office Visit [facility] Endocrinology [address] [facility], [address] [place] [address] (1), Rigoberto Graves Fellow documented as of this encounter Visit Diagnoses Not on filedocumented in this encounter Additional Health Concerns Assessment Noted Time A fall risk assessment has been complete d for the patient 09/01/2023 2:29 PM EDT A Body Mass Index follow-up plan has been documented for the patient 03/12/2024 10:36 AM EDT documented as of this encounter Care Teams Knuckler Relationship Specialty Start Date End Date Uyen Hines MD [address] [place] [address] PCP - General 05/31/22 Telma Smith APRN [address] [phone] Nurse Practitioner Neurosurgery 09/01/23 documented as of this encounter
--- OUTSIDE RECORDS SUMMARY | 2024-10-19 10:53 | XMS_ITS | Encounter Summary ---
Author Organization [facility] Address [address] [place] [address] Care Team Providers Care Package Dyeing Machine Operator Name Role Phone Uyen Hines MD Primary Care Provider [phone] Telma Smith APRN Unavailable [phone] Encounter Details Date Type Department Care Team (Late st Contact Info) Description 03/19/2024 Telephone [facility] Endocrinology [address] [place] [address], [address] [place] [address] Kapil Buckner MD [address] [place], [place] [id number] Social History Tobacco Use Types Packs/Day Years [...] encounter Miscellaneous Notes * Telephone Encounter - Kapil Buckner MD - 03/19/2024 12:33 PM EDT Called and spoke with patient today. She states blood pressures are labile but most recent BP was 160/90. She is endorses nausea and vomiting as well as significant fatigue. She has been taking her 20mg and 10mg still as prescribed and has not missed any doses. Encouraged patient to continue to check BP and if systolic BP below 80 to reach out to clinic and have a low concern to return to [facility] if BP consistently low. documented in this encounter Plan of Treatment Upcoming Encounters Date Type Department Care Team (Late st Contact Info) Description 12/21/2024 12:40 PM EST Office Visit [facility] Endocrinology [address] [facility], [address] [place] [phone] Kajal Smith MD [address] [facility] [address] [place] [address] 01/25/2025 3:20 PM EST Office Visit [facility] Nephrology, Bone & Mineral Metabolism [address] [facility], [address] [place] [address] David Winslow MD [address] [facility] [address] [place] [address] 03/25/2025 11:20 AM EDT Office Visit [facility] Endocrinology [address] [facility], [address] [place] [address] (1), Rigoberto Graves Fellow documented as of this encounter Visit Diagnoses Not on filedocumented in this encounter Additional Health Concerns Assessment Noted Time A fall risk assessment has been complete d for the patient 09/01/2023 2:29 PM EDT A Body Mass Index follow-up plan has been documented for the patient 03/12/2024 10:36 AM EDT documented as of this encounter Care Teams Package Dyeing Machine Operator Relationship Specialty Start Date End Date Uyen Hines MD [address] [place] [address] PCP - General 05/31/22 Telma Smith APRN [address] [place] [phone] Nurse Practitioner Neurosurgery 09/01/23 documented as of this encounter
--- OUTSIDE RECORDS SUMMARY | 2024-10-19 10:53 | XMS_ITS | Encounter Summary ---
Author Organization [facility] Address [address] [place], [place] [id number] Care Team Providers Care System Planning Engineer Name Role Phone Uyen Hines MD Primary Care Provider [phone] Telma Smith CHILDREN'S LUNCHROOM SUPERVISOR Unavailable [phone] Reason for Referral * Consultation (Routine) - Closed Specialty Diagnoses / Procedures Referred By Contac t Referred To Contact Endocrinology Diagnoses Morbid obesity with body mass index (BMI) of 40.0 or higher (CMS/[facility]) Rigoberto Graves MD [address] [address] Phone: tel: fax: [facility] Endocrinology [address] [place] [address], [address] [place] [address] Phone: tel: fax: Referral ID Status Reason Start Date Expiration Date Visits Re quested Visits Authorized [id number] Closed 05/28/2024 11/27/2025 1 1 Reason for Visit * Reason Comments Adrenal insufficiency Encounter Details Date Type Department Care Team (Late st Contact Info) Description 05/28/2024 8:20 AM EDT Office Visit [facility] Endocrinology [address] [place] [address] Rigoberto Graves MD [address] [place] [address] (1), Rigoberto Graves Fellow Adrenal insufficiency (CMS/HCC) (Primary Dx); Morbid obesity with body mass index (BMI) of 40.0 or higher (CMS/HCC); Steven's thyroiditis Social History Tobacco Use Types Packs/Day Years [...] Sign Reading Time Taken Comments Blood Pressure 103/70 05/28/2024 7:45 AM EDT Pulse 60 05/28/2024 7:45 AM EDT Temperature - - Respiratory Rate - - Oxygen Saturation - - Inhaled Oxygen Concentration - - Weight 104 kg (228 lb 2.8 oz) 05/28/2024 7:45 AM EDT Height 165.1 cm (5' 5 ) 05/28/2024 7:45 AM EDT Body Mass Index 37.97 05/28/2024 7:45 AM EDT documented in this encounter Miscellaneous Notes * Progress Notes - Dede Lane DO - 05/28/2024 8:20 AM EDT Subjective HPI Mrs. Tessie Roa is a 43yo F with PMH of CKDs, HTN, Hypothyroidism, GERD, depression who presents as a consult to Endocrine clinic for evaluation of Adrenal Insufficiency. Patient was admitted to [facility] in January for worsening fatigue, weakness, and [...] by phone while pt was admitted to [facility] ande was started on hydrocortisone 30mg qAM and [...] in weight. Orthostatics at consult were negative. Interval: Currently taking 5 mg Hydrocortisone daily. Recently hospitalized for low blood pressure. Given some IV hydrocortisone which did improve her blood pressure. Reports that her blood pressure has remained on the lower side. Feels weak, tired and increased tinnitus when BP drops. Periodic nausea but novomiting. Has been off hydrocortisone since Friday and reports feeling week and tired. Patient also reports there her dose of levothyroxine was recently increased from 100 to 150 mcg daily after results of recent thyroid function labs obtained at outside facility. Surgical hx: hysterectomy and R oophrectomy in 2014 SH: No smoking or drinking, no drug use. FH: Mother had hypothyroidism The following portions of the chart were reviewed this encounter and updated as appropriate: Review of Systems Constitutional: Positive for fatigue. Negative for chills and fever. HENT: Negative. Eyes: Positive for visual disturbance. Respiratory: Negative for shortness of breath. Cardiovascular: Negative for chest pain. Gastrointestinal: Positive for nausea. Negative for vomiting. Genitourinary: Negative. Musculoskeletal: Positive for back pain. Skin: Negative. Neurological: Positive for dizziness, weakness and headaches. Negative for seizures, syncope, facial asymmetry and speech difficulty. Hematological: Negative. Psychiatric/Behavioral: Negative. Objective Physical Exam Constitutional: Appearance: Normal appearance. She is obese. HENT: Head: Normocephalic and atraumatic. Eyes: General: [...] profound hypotension end of January. Workup at [facility] showed no evidence fo bacterial infection, and cortisol level was said to be 2; at the time of that phone call, ACTH was pending, she was subsequently stared on 30mg hydrocortisone qAM and 20mg qPM -symptoms did not improve -We previously performed orthostatic vitals, and BP and pulse were robust and did not change with sitting/dangling. -cosyntropin stim test with max response of 14.6 and ACTH 35.7 -hydrocortisone has been titrated down to 5 mg daily PLAN -Given patient's recent history of low BP and weekend upcoming recommend continuing on hydrocortisone 10 mg in AM and 5 mg in PM. - As patient is currently off steroids and has been since Friday will repeat random cortisol and ACTH level. Will also obtain 21-hydroxylase level, renin and aldosterone levels. - Once results have returned will adjust regimen as necessary. Hashimotos Thyroiditis -currently on levothyroixine 150 mcg daily -dose was recently increased at the hospital -will attempt to get labs from outside facility Obesity -The patient received dietary education because they have an above normal BMI. and The patient received exercise education because they have an above normal BMI. - referral to weight management clinic. Electronically signed by: Dede Lane DO Endocrinology fellow, PGY-[address] [facility] [address] [place] [address]. [address] [place]. [address] PHONE [phone] FAX: [phone] Cosigned by Rigoberto Graves MD at 05/30/2024 10:28 AM EDT Associated attestation - Rigoberto Graves MD - 05/30/2024 10:28 AM EDT I saw and evaluated the patient with the resident/fellow. I discussed the case with the resident/fellow and agree with the findings and plan as documented. documented in this encounter Plan of Treatment Upcoming Encounters Date Type Department Care Team (Late st Contact Info) Description 12/21/2024 12:40 PM EST Office Visit [facility] Endocrinology [address] [facility], [address] [place] [phone] Kajal Smith MD [address] [facility] [address] [place] [address] 01/25/2025 3:20 PM EST Office Visit [facility] Nephrology, Bone & Mineral Metabolism [address] [facility], [address] [place] [address] David Winslow MD [address] [facility] [address] [place] [address] 03/25/2025 11:20 AM EDT Office Visit [facility] Endocrinology [address] [facility], [address] [place] [address] (1), Rigoberto Graves Fellow Scheduled Referrals Name Type Priority Associated Diagnoses Order Schedule Ambulatory Referral to [facility] Weight Management Outpatient Referral Routine Morbid obesity with body mass index (BMI) of 40.0 or higher (CMS/HCC) 1 Occurrences starting 05/28/2024 until 11/28/2025 documented as of this encounter Results * (ABNORMAL) Plasma Renin Activity (LC/MS/MS) (05/28/2024 9:22 AM EDT) PRA RESULT 0.12(L) 0.25 - 5.82 ng/mL/h 06/05/2024 12:30 AM EDT [facility] ([facility] ([place]) Comment: This test was developed and its analytical performance characteristics have been determined by [employer]. It has not been cleared or approved by FDA. This assay has been validated pursuant to the CLIA regulations and is used for clinical purposes. Blood Venous blood specimen / Unknown Venipuncture / Unknown 05/28/2024 9:22 AM EDT 05/28/2024 9:24 AM EDT Narrative [facility] ([place]) - 06/05/2024 12:30 AM EDT Performing Organization Information: ?Site ID: ?Name: [email or web address] ?Address: [address] [place] [address] ?Director: Lisa Jacobsen MD, PhD Rigoberto Graves MD LAB BLOOD ORDERABLES Final Resu lt Performing Organization Address City/[facility] Co de Phone Number [facility] ([facility]) ([place]) [place] [address] * (ABNORMAL) Aldosterone (05/28/2024 9:22 AM EDT) Aldosterone <3.0(L) 4.0 - 31.0 ng/dL 05/28/2024 2:25 PM EDT [facility] Blood Venous blood specimen / Unknown Venipuncture / Unknown 05/28/2024 9:22 AM EDT 05/28/2024 9:24 AM EDT Rigoberto Graves MD LAB BLOOD ORDERABLES Final Resu lt [facility] [address] [place] [address] * 21-Hydroxylase Antibody (05/28/2024 9:22 AM EDT) 21 Hydroxylase Antibody Negative 06/02/2024 1:56 PM EDT [facility] ([facility]) Blood Venous blood specimen / Unknown Venipuncture / Unknown 05/28/2024 9:22 AM EDT 05/28/2024 9:24 AM EDT Narrative [facility]) - 06/02/2024 1:56 PM EDT INTERPRETIVE INFORMATION: 21-Hydroxylase Autoantibodies, ?Serum The 21-Hydroxylase Autoantibody assay is intended for the qualitative determination of autoantibodies to steroid 21-hydroxylase in human serum. A positive result is indicative of primary adrenal insufficiency ([place] disease). Results should be interpreted within the context of clinical symptoms, including functional adrenal testing. Males with adrenal insufficiency and negative results for 21-hydroxylase autoantibodies should be screened for X-Linked Adrenoleukodystrophy (X-ALD) by ordering Very Long-Chain Branched Fatty Acids in Plasma ([facility] Test Code [id number]). Performed By: [facility] [address] [place] [address] Sustainable Design Coordinator: Pancho Estrada MD, PhD CLIA Number: [id number] Rigoberto Graves MD LAB BLOOD ORDERABLES Final Resu lt Performing Organization Address City/[facility] Co de Phone Number [facility] ([facility] [address] [place] [address] * ACTH (05/28/2024 9:22 AM EDT) ACTH 18.1 7.2 - 63 pg/mL 05/28/2024 3:25 PM EDT [facility] Blood Venous blood specimen / Unknown Venipuncture / Unknown 05/28/2024 9:22 AM EDT 05/28/2024 9:24 AM EDT Rigoberto Graves MD LAB BLOOD ORDERABLES Final Resu lt [facility] [address] [place] [address] * Cortisol (05/28/2024 9:22 AM EDT) Cortisol 8.70 Before 10am: 3.7 - 19.4. After 5pm: 2.9 - 17.3 ug/dL 05/28/2024 2:16 PM EDT [facility] Comment:Testing performed on [employer], standardized against [facility] Reference Standard concentration values assigned by LC-MS/MS and verified by BCR 192 and BCR 193 certified reference materials. Blood Venous blood specimen / Unknown Venipuncture / Unknown 05/28/2024 9:22 AM EDT 05/28/2024 9:24 AM EDT us Rigoberto Graves MD LAB REF LAB BLOOD AND FLUID ORD Final Result [facility] [address] [place] [address] documented in this encounter Visit Diagnoses Diagnosis Adrenal insufficiency (CMS/HCC)- Primary Glucocorticoid deficiency Morbid obesity with body mass index (BMI) of 40.0 or higher (CMS/HCC) Steven's thyroiditis Chronic lymphocytic thyroiditis documented in this encounter Additional Health Concerns Assessment Noted Time A fall risk assessment has been complete d for the patient 09/01/2023 2:29 PM EDT A Body Mass Index follow-up plan has been documented for the patient 05/30/2024 10:28 AM EDT documented as of this encounter Care Teams System Planning Engineer Relationship Specialty Start Date End Date Uyen Hines MD [address] [place] [address] PCP - General 05/31/22 Telma Smith APRN [address] [facility] [address] [place] [address] Nurse Practitioner Neurosurgery 09/01/23 documented as of this encounter
--- OUTSIDE RECORDS SUMMARY | 2024-10-19 10:53 | XMS_ITS | Encounter Summary ---
Author Organization [facility] Address [address] [place] [address] Care Team Providers Care Diver Helper Name Role Phone Uyen Hines MD Primary Care Provider [phone] Telma Smith FLIGHT CONTROL MANAGER Unavailable [phone] Encounter Details Date Type Department Care Team (Late st Contact Info) Description 03/12/2024 Telephone [facility] Endocrinology [address], [address] [place] [address] Rigobetro Graves MD [address] [facility] [address] [place] [address] Social History Tobacco Use Types [...] encounter Miscellaneous Notes * Telephone Encounter - Prerna Cheng - 03/12/2024 3:48 PM EDT Patient Phone Message Reason for Call: Pt is asking if her Stim test results are back and if so can she get a call back with the results. Best contact number and optimal time of day to reach caller: [phone] Note: Please do not reply to this message. Follow-up communication and further actions as a result of this message need to be communicated with the patient directly, if the patient is not active onMyChart. If the patient is active on MyChart, they will receive notification of the communication/outcome via MyChart. documented in this encounter Plan of Treatment Upcoming Encounters Date Type Department Care Team ([facility] st Contact Info) Description 12/21/2024 12:40 PM EST Office Visit [facility] Endocrinology [address] [facility], [address] [place] [address] Kajal Smith MD [address] [address] 01/25/2025 3:20 PM EST Office Visit [facility] Nephrology, Bone & Mineral Metabolism [address] [facility], [address] [place] [address] David Winslow MD [address] [facility] [address] [place] [address] 03/25/2025 11:20 AM EDT Office Visit [facility] Endocrinology [address] [facility], [address] [place] [address] (1), Rigoberto Graves Fellow documented as of this encounter Visit Diagnoses Not on filedocumented in this encounter Additional Health Concerns Assessment Noted Time A fall risk assessment has been complete d for the patient 09/01/2023 2:29 PM EDT A Body Mass Index follow-up plan has been documented for the patient 03/12/2024 10:36 AM EDT documented as of this encounter Care Teams Diver Helper Relationship Specialty Start Date End Date Uyen Hines MD [address] [place] [address] PCP - General 05/31/22 Telma Smith APRN [address] [facility] [address] [place] [address] Nurse Practitioner Neurosurgery 09/01/23 documented as of this encounter
--- OUTSIDE RECORDS SUMMARY | 2024-10-19 10:53 | XMS_ITS | Encounter Summary ---
Author Organization [facility] Address [address] [place] [address] Care Team Providers Care Gutter Mouth Cutter Name Role Phone Uyen Hines MD Primary Care Provider [phone] Telma Smith PARCEL CONTRACTOR Unavailable [phone] Reason for Visit * Reason Comments Med Refill Encounter Details Date Type Department Care Team (Late st Contact Info) Description 12/08/2023 Refill [place] [facility] [address] [place] [address] Telma Smith, PARCEL CONTRACTOR [address] [place] [address] Lumbar radiculopathy Social History Tobacco Use Types Packs/Day Years [...] Description 12/21/2024 12:40 PM EST [facility] [address] [facility], [address] [place] [address] Kajal Smith MD [address] [facility] [address] [place] [address] 01/25/2025 3:20 PM EST Office Visit [facility] Nephrology, Bone & Mineral Metabolism [address] [facility], [address] [place] [address] David Winslow MD [address] [facility] [address] [place] [address] 03/25/2025 11:20 AM EDT Office Visit [facility] Endocrinology [address] [facility], [address] [place] [address] (1), Rigoberto Graves Fellow documented as of this encounter Visit Diagnoses Diagnosis Lumbar radiculopathy Thoracic or lumbosacral neuritis or radiculitis, unspecified documented in this encounter Additional Health Concerns Assessment Noted Time A fall risk assessment has been complete d for the patient 09/01/2023 2:29 PM EDT A Body Mass Index follow-up plan has been documented for the patient 09/11/2023 9:20 AM EDT documented as of this encounter Care Teams Gutter Mouth Cutter Relationship Specialty Start Date End Date Uyen Hines MD [address] [place] [address] PCP - General 05/31/22 Telma Smith APRN [address] [facility] [address] [place] [address] Nurse Practitioner Neurosurgery 09/01/23 documented as of this encounter
--- OUTSIDE RECORDS SUMMARY | 2024-10-19 10:53 | XMS_ITS | Encounter Summary ---
Author Organization [facility] Address [address] [id number] Care Team Providers Care Retail Department Supervisor Name Role Phone Uyen Hines MD Primary Care Provider [phone] Reason for Visit * Reason Comments Procedure * Other Medical (Routine) - Closed Specialty Diagnoses / Procedures Referred By Contac t Referred To Contact Neurosurgery Diagnoses Paresthesias Procedures EMG / NCV Telma Smith, REGISTERED HEALTH NURSE [id number] [place] [address] Phone: tel: fax: Referral ID Status Reason Start Date Expiration Date Visits Re quested Visits Authorized [id number] Closed 04/16/2023 10/15/2024 1 1 Encounter Details Date Type Department Care Team (Late st Contact Info) Description 06/02/2023 11:00 AM EDT Procedure Visit [facility] at [facility] [address] [facility] [place] [address] Marty You MD [address] [place] [address] Paresthesias Social History Tobacco Use Types Packs/Day Years [...] Sign Reading Time Taken Comments Blood Pressure 124/86 06/02/2023 10:37 AM EDT Pulse 68 06/02/2023 10:37 AM EDT Temperature - - Respiratory Rate - - Oxygen Saturation 96% 06/02/2023 10:37 AM EDT Inhaled Oxygen Concentration - - Weight 111 kg (245 lb 12.8 oz) 06/02/2023 10:37 AM EDT Height 162.6 cm (5' 4 ) 06/02/2023 10:37 AM EDT Body Mass Index 42.19 06/02/2023 10:37 AM EDT documented in this encounter Miscellaneous Notes * Progress Notes - Marty You MD - 06/02/2023 11:00 AM EDTAssociated Order(s): EMG / NCV Pre-Procedure Diagnose(s): Paresthesias Post-Procedure Diagnose(s): Paresthesias Images from the original note were not included. Patient ID: Tessie Roa is a 42 y.o. female. Encounter Diagnosis Name Primary? Paresthesias EMG / NCV Date/Time: 06/02/2023 11:00 AM Performed by: Marty You MD Authorized by: Telma Smith APRN Consent: Consent obtained: Written Consent given by: Patient Risks discussed: Bleeding, infection and pain Alternatives discussed: Observation [facility] Department of Physical [place] [address] Test Date: 06/02/2023 Patient: Tessie Roa : 1980 Physician: Marty You MD Sex: Female Height: 5' 4 Ref Phys: Telma Smith APRN ID#: [id number] Weight: 237 lbs. Resident: Virgilio Tejeda MD Patient Complaints: BUE and BLE Numbness Medications: See EMR, takes aspirin 81 mg that she has held for 2 days Patient History / Exam: Patient is a 42-year-old female who has been experiencing neck and back pain with progressively worsening. She reports that her entire left upper extremity, left lower extremity are completely numb. She had a BUE EMG within the last 10 years. She also endorses numbness in the right anterior thigh. She reports electric pain in her posterior and lateral legs that radiates to the knees bilaterally. She states she is dropping objects, and having difficulty with opening jars. She had 2 months of physical therapy for her neck and shoulders without pain benefit. Her pain is worse in the mornings. She states her back and leg pain is worse with walking and standing. 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 She was referred by NSGY for EMG evaluation of her BUE and BLE. Patient endorses history of hypothyroid. Patient denies history of DM, vitamin deficiencies, cancer, exposure to chemo or radiation, EtOH or tobacco use. Upper extremity exam: Strength: 5/5 bilateral Shoulder abduction, elbow flexion/extension, wrist extension, finger flexion/extension/abduction SILT bilateral median/radial/ulnar distributions Reflexes: 2+ bilateral biceps/triceps/brachioradialis Negative Go's bilaterally Lower extremity exam: Strength: 5/5 bilateral hip flexion, knee extension/flexion, EHL, ankle dorsiflexion/plantarflexion/inversion SILT bilateral saphenous/SP/DP/sural/tibial distributions Reflexes: 1/4 bilateral patella No clonus appreciated NCS & EMG Findings: Left median motor study revealed normal onset latency, normal amplitudes, and normal conduction velocity (Elbow-Wrist). Right median motor study revealed normal onset latency, normal amplitudes, and normal conduction velocity (Elbow-Wrist). Left peroneal motor study revealed normal onset latency, normal amplitudes, normal conduction velocity (B Fib-Ankle), and normal conduction velocity (Poplt- B Fib). Right peroneal motor study revealed normal onset latency, normal amplitudes, normal conduction velocity (B Fib-Ankle), and normal conduction velocity (Poplt- B Fib). Left tibial motor study revealed normal onset latency, normal amplitudes, and normal conduction velocity (Knee-Ankle). Right tibial motor study revealed normal onset latency, normal amplitudes, and normal conduction velocity (Knee-Ankle). Left ulnar motor study revealed normal onset latency, normal amplitudes, normal conduction velocity(B Elbow-Wrist), and normal conduction velocity (A Elbow-B Elbow). Right ulnar motor study revealed normal onset latency, normal amplitudes, normal conduction velocity (B Elbow-Wrist), and normal conduction velocity (A Elbow-B Elbow). Left median (across palm) sensory study revealed normal peak latency (Wrist) and normal amplitude. Mid-palm stimulation did not reveal any slowing across the wrist. Right median (across palm) sensory study revealed normal peak latency (Wrist) and normal amplitude.Mid-palm stimulation did not reveal any slowing across the wrist. Left sural sensory study revealed normal peak latency and normal amplitude. Right sural sensory study revealed normal peak latency and normal amplitude. Left ulnar sensory study revealed normal peak latency and normal amplitude. Right ulnar sensory study revealed normal peak latency and normal amplitude. Right tibial F Wave latencies were within normal limits. Concentric EMG of the right anterior tibialis, medial gastrocnemius, and vastus medialis revealed normal insertional activity, no abnormal spontaneous activity and the voluntary motor unit action potentials were within normal parameters. Concentric EMG evaluation of the left anterior tibialis, medial gastrocnemius, and vastus medialis revealed normal insertional activity, no abnormal spontaneous activity and the voluntary motor unit action potentials were within normal parameters Concentric EMG evaluation of the right deltoid, biceps brachii, pronator teres, and FDI revealed normal insertional activity, no abnormal spontaneous activity and the voluntary motor unit action potentials were within normal parameters Concentric EMG evaluation of the left deltoid, biceps brachii, pronator teres, and FDI revealed normal insertional activity, no abnormal spontaneous activity and the voluntary motor unit action potentials were within normal parameters Dr. You was present for the entire procedure, interpretation of the results and completion ofthe report. Physicians performed all the NCS. Dr. You performed the procedure. Dr. Tejeda observed. CPT Codes NCS 80859, EMG RUE 96333, EMG LUE 29107, EMG RLE 77602, EMG LLE 31438 Impression: No electrodiagnostic evidence of a bilateral C5-T1 motor radiculopathy in the muscles and nerves tested. No electrodiagnostic evidence of a bilateral L2-S2 motor radiculopathy in the muscles and nerves tested. No electrodiagnostic evidence of a generalized sensorimotor polyneuropathy in the muscles and nerves tested. Virgilio Tejeda MD Mraty You MD Nerve Conduction Studies Anti Sensory Summary Table Stim Site NR Peak (ms) Norm Peak (ms) P-T Amp (??V) Norm P-T Amp Site1 Site2 Delta-P (ms) Dist (cm)Navjot (m/s) Norm Navjot (m/s) Left Median Acr Palm Anti Sensory (3rd Digit) 33.3 ??C Wrist 3.4 <3.7 40.7 >20 Wrist 3rd Digit 3.4 14.0 41 Palm 1.6 <1.9 35.4 Palm 3rd Digit 1.6 7.0 44 Right Median Acr Palm Anti Sensory (3rd Digit) 33 ??C Wrist 3.4 <3.7 42.3 >20 Wrist 3rd Digit 3.4 14.0 41 Palm 1.6 <1.9 25.3 Palm 3rd Digit 1.6 7.0 44 Left Sural Anti Sensory (Lat Mall) 32.5 ??C Calf 3.4 <4.3 11.2 >10 Calf Lat Mall 3.4 14.0 41 Right Sural Anti Sensory (Lat Mall) 31.5 ??C Calf 3.4 <4.3 15.3 >10 Calf Lat Mall 3.4 14.0 41 Left Ulnar Anti Sensory (5th Digit) 32.8 ??C Wrist 3.0 <3.7 47.9 >20 Wrist 5th Digit 3.0 14.0 47 Right Ulnar Anti Sensory (5th Digit) 33 ??C Wrist 3.0 <3.7 46.7 >20 Wrist 5th Digit 3.0 14.0 47 Motor Summary Table Stim Site NR Onset (ms) Norm Onset (ms) O-P Amp (mV) Norm O-P Amp Site1 Site2 Delta-0 (ms) Dist (cm) Navjot (m/s) Norm Navjot (m/s) Left Median Motor (Abd Poll Brev) 32.6 ??C Wrist 3.8 <4.3 12.1 >4 Elbow Wrist 3.5 18.2 52 >45 Elbow 7.3 12.1 Right Median Motor (Abd Poll Brev) 32.8 ??C Wrist 3.9 <4.3 10.6 >4 Elbow Wrist 3.4 19.0 56 >45 Elbow 7.3 10.9 Left Peroneal Motor (Ext Dig Brev) 31.9 ??C Ankle 3.7 <6.2 4.3 >2.0 B Fib Ankle 6.1 29.5 48 >40 B Fib 9.8 3.7 Poplt B Fib 1.5 8.0 53 >40 Poplt 11.3 3.8 Right Peroneal Motor (Ext Dig Brev) 31 ??C Ankle 3.4 <6.2 5.9 >2.0 B Fib Ankle 5.4 28.0 52 >40 B Fib 8.8 5.0 Poplt B Fib 1.7 8.0 47 >40 Poplt 10.5 4.3 Left Tibial Motor (Abd Brody Brev) 31.6 ??C Ankle 3.7 <6.2 19.7 >5.0 Knee Ankle 7.2 33.0 46 >40 Knee 10.9 12.9 Right Tibial Motor (Abd Brody Brev) 32.3 ??C Ankle 5.5 <6.2 8.9 >5.0 Knee Ankle 5.8 33.5 58 >40 Knee 11.3 9.0 Left Ulnar Motor (Abd Dig Minimi) 32 ??C Wrist 2.7 <4.3 13.7 >2 B Elbow Wrist 2.6 16.5 63 >45 B Elbow 5.3 12.8 A Elbow B Elbow 2.6 14.0 54 >45 A Elbow 7.9 11.3 Right Ulnar Motor (Abd Dig Minimi) 31.6 ??C Wrist 2.5 <4.3 11.2 >2 B Elbow Wrist 3.0 19.0 63 >45 B Elbow 5.5 11.1 A Elbow B Elbow 2.3 14.0 61 >45 A Elbow 7.8 11.0 F Wave Studies NR F-Lat (ms) Lat Norm (ms) L-R F-Lat (ms) L-R Lat Norm Right Tibial (Mrkrs) (Abd Hallucis) 31.8 ??C 46.2 <61 <4.0 EMG Side Muscle Nerve Root Ins Act Fibs Psw Other Amp Dur Poly Recrt Comment Left AntTibialis Dp Br Peron L4-5 Nml 0 0 Nml Nml 0 Nml Left MedGastroc Tibial S1-2 Nml 0 0 Nml Nml 0 Nml Left VastusMed Femoral L2-4 Nml 0 0 Nml Nml 0 Nml Right AntTibialis Dp Br Peron L4-5 Nml 0 0 Nml Nml 0 Nml Right MedGastroc Tibial S1-2 Nml 0 0 Nml Nml 0 Nml Right VastusMed Femoral L2-4 Nml 0 0 Nml Nml 0 Nml Left 1stDorInt Ulnar C8-T1 Nml 0 0 Nml Nml 0 Nml Left PronatorTeres Median C6-7 Nml 0 0 Nml Nml 0 Nml Left Biceps Musculocut C5-6 Nml 0 0 Nml Nml 0 Nml Left Deltoid Axillary C5-6 Nml 0 0 Nml Nml 0 Nml Right Deltoid Axillary C5-6 Nml 0 0 Nml Nml 0 Nml Right Biceps Musculocut C5-6 Nml 0 0 Nml Nml 0 Nml Right PronatorTeres Median C6-7 Nml 0 0 Nml Nml 0 Nml Right 1stDorInt Ulnar C8-T1 Nml 0 0 Nml Nml 0 Nml Waveforms: documented in this encounter Plan of Treatment Upcoming Encounters Date Type Department Care Team (Late st Contact Info) Description 12/21/2024 12:40 PM EST Office Visit [facility] Endocrinology [address], [address] [place] [address] Kajal Smith MD [address] [facility] [address] [place] [address] 01/25/2025 3:20 PM EST Office Visit [facility] Nephrology, Bone & Mineral Metabolism [address], [address] [place] [address] David Winslow MD [address] [facility] [address] [place] [address] 03/25/2025 11:20 AM EDT Office Visit [facility] Endocrinology [address], [address] [place] [address] (1), Rigoberto Arenasn Fellow documented as of this encounter Procedures Procedure Name Priority Date/Time Associated Diagnosis Comments EMG / NERVE CONDUCTION STUDY Routine 06/02/2023 11:00 AM EDT Paresthesias documented in this encounter Results * EMG / NERVE CONDUCTION STUDY (06/02/2023 11:00 AM EDT) Narrative Marty You MD - 06/02/2023 11:00 AM EDT Marty You MD ? 06/02/2023 ??1:53 PM EMG / NCV Date/Time: 06/02/2023 11:00 AM Performed by: Marty You MD Authorized by: Telma Smith APRN ?? Consent: ??Consent obtained: ??Written ??Consent given by: ??Patient ??Risks discussed: ??Bleeding, infection and pain ??Alternatives discussed: ??Observation us Telma Smith APRN NEUROLOGY ORDERABLES Final Result documented in this encounter Visit Diagnoses Diagnosis Paresthesias Disturbance of skin sensation documented in this encounter Additional Health Concerns Assessment Noted Time A fall risk assessment has been complete d for the patient 06/02/2023 10:42 AM EDT A Body Mass Index follow-up plan has been documented for the patient 04/10/2023 12:25 PM EDT documented as of this encounter Care Teams Retail Department Supervisor Relationship Specialty Start Date End Date Uyen Hines MD [address] [place] [address] PCP - General 05/31/22 documented as of this encounter
--- OUTSIDE RECORDS SUMMARY | 2024-10-19 10:53 | XMS_ITS | Encounter Summary ---
Author Organization [facility] Address [address] [id number] Care Team Providers Care Opera Singer Name Role Phone Uyen Hines MD Primary Care Provider [phone] Telma Smith APRN Unavailable [phone] Reason for Referral * Consultation (Routine) - Authorized Specialty Diagnoses / Procedures Referred By Christopher yuan Referred To Contact Pain Medicine Diagnoses Lumbar radiculopathy Telma Smith APRN [address] [address] Phone: tel: fax: Referral ID Status Reason Start Date Expiration Date Visits Requested Visits Authorized [id number] Authorized Perform Procedure 03/18/2025 1 1 Scheduling Instructions Established patient of [facility] but the office requires a referral for SCS vs ITPP eval Encounter Details Date Type Department Care Team (Late st Contact Info) Description 09/17/2023 Orders Only [place] [facility] [address] [place] [address] Telma Smith APRN [address] [address] Lumbar radiculopathy (Primary Dx) Social History Tobacco Use Types [...] Description 12/21/2024 12:40 PM EST Office Visit [facility] Endocrinology [address], [address] [place] [address] Kajal Smith MD [address] [facility] [address] [place] [address] 01/25/2025 3:20 PM EST Office Visit [facility] Nephrology, Bone & Mineral Metabolism [address] [facility] [address] [facility], [address] [place] [address] David Winslow MD [address] [facility] [address] [place] [address] 03/25/2025 11:20 AM EDT Office Visit [facility] Endocrinology [address] [facility] [address], [address] [place] [address] (1), Rigoberto Graves Fellow Scheduled Referrals Name Type Priority Associated Diagnoses Orde r Schedule Ambulatory referral to Pain Medicine Outpatient Referral Routine Lumbar radiculopathy Expected: 09/17/2023 (Approximate), Expires: 03/18/2025 documented as of this encounter Visit Diagnoses Diagnosis Lumbar radiculopathy- Primary Thoracic or lumbosacral neuritis or radiculitis, unspecified documented in this encounter Additional Health Concerns Assessment Noted Time A fall risk assessment has been complete d for the patient 09/01/2023 2:29 PM EDT A Body Mass Index follow-up plan has been documented for the patient 09/11/2023 9:20 AM EDT documented as of this encounter Care Teams Opera Singer Relationship Specialty Start Date End Date Uyen Hines MD [address] [place], [place] [id number] PCP - General 05/31/22 Telma Smith APRN [address] [address] Nurse Practitioner Neurosurgery 09/01/23 documented as of this encounter
--- OUTSIDE RECORDS SUMMARY | 2024-10-19 10:53 | XMS_ITS | Encounter Summary ---
Author Organization [facility] Address [address] [place] [address] Care Team Providers Care Temper Mill Roller Name Role Phone Uyen Hines MD Primary Care Provider [phone] Telma Smith COUNTER HAND Unavailable [phone] Encounter Details Date Type Department Care Team (Late Contact Info) Description 03/17/2024 Orders Only [facility] Endocrinology [address], [address] [place] [address] Estefania Ny, [address] [facility] [address] [place] [address] Adrenal insufficiency (CMS/HCC) (Primary Dx); Acquired hypothyroidism Social History Tobacco Use Types Packs/Day Years [...] Description 12/21/2024 12:40 PM EST Office Visit [facility] Endocrinology [address] [place] [address] Kajal Smith MD [address] [place] [address] 01/25/2025 3:20 PM EST Office Visit [facility] Nephrology, Bone & Mineral Metabolism [address] [facility], [address] [place] [address] David Winslow MD [address] [facility] [address] [place] [address] 03/25/2025 11:20 AM EDT Office Visit [facility] Endocrinology [address] [place] [address] (1), Rigoberto Graves Fellow documented as of this encounter Visit Diagnoses Diagnosis Adrenal insufficiency (CMS/HCC)- Primary Glucocorticoid deficiency Acquired hypothyroidism Unspecified hypothyroidism documented in this encounter Additional Health Concerns Assessment Noted Time A fall risk assessment has been complete d for the patient 09/01/2023 2:29 PM EDT A Body Mass Index follow-up plan has been documented for the patient 03/12/2024 10:36 AM EDT documented as of this encounter Care Teams Temper Mill Roller Relationship Specialty Start Date End Date Uyen Hines MD [address] [place] [address] PCP - General 05/31/22 Telma Smith APRN [address] [place] [address] Nurse Practitioner Neurosurgery 09/01/23 documented as of this encounter
--- OUTSIDE RECORDS SUMMARY | 2024-10-19 10:53 | XMS_ITS | Encounter Summary ---
Author Organization [facility] Address [address] [place] [address] Care Team Providers Care Home Office Claims Examiner Name Role Phone Uyen Hines MD Primary Care Provider [phone] Telma Smith APRN Unavailable [phone] Encounter Details Date Type Department Care Team (Latest Contact Info) Description 07/12/2024 Travel Social History Tobacco Use Types Packs/Day [...] Description 12/21/2024 12:40 PM EST Office Visit [facility] Endocrinology [address] [place] [address] Kajal Smith MD [address] [place] [address] 01/25/2025 3:20 PM EST Office Visit [facility] Nephrology, Bone & Mineral Metabolism [address] [facility], [address] [place] [address] David Winslow MD [address] [facility] [address] [place] [address] 03/25/2025 11:20 AM EDT [facility] [address] [place] [address] (1), Rigoberto Graves Fellow documented as of this encounter Visit Diagnoses Not on filedocumented in this encounter Additional Health Concerns Assessment Noted Time A fall risk assessment has been complete d for the patient 07/12/2024 3:08 PM EDT A Body Mass Index follow-up plan has been documented for the patient 07/13/2024 4:45 PM EDT documented as of this encounter Care Teams Home Office Claims Examiner Relationship Specialty Start Date End Date Uyen Hines MD [address] [place] [address] PCP - General 05/31/22 Telma Smith APRN [address] [facility] [address] [place] [address] Nurse Practitioner Neurosurgery 09/01/23 documented as of this encounter
--- OUTSIDE RECORDS SUMMARY | 2024-10-19 10:53 | XMS_ITS | Encounter Summary ---
Author Organization [facility] Address [address] [id number] Care Team Providers Care Veneer Drier Tailer Name Role Phone Uyen Hines MD Primary Care Provider [phone] Telma Smith PATIENT PORTAL REPRESENTATIVE Unavailable [phone] Encounter Details Date Type Department Care Team (Latest Contact Info) Description 03/12/2024 2:00 PM EDT Clinical Support [facility] Endocrinology [address] [facility], [address] [place] [address] Adrenal insufficiency (CMS/HCC) (Primary Dx) Social History Tobacco Use Types [...] as of this encounter Miscellaneous Notes * Progress Notes - Lucia Puri RN - 03/12/2024 2:00 PM EDT Pt verified with name and birthday. Correct medication, dose and route also verified. Cosyntropin 0.25 mg injected into left deltoid. Pt tolerated well. documented in this encounter Plan of Treatment Upcoming Encounters Date Type Department Care Team (Late st Contact Info) Description 12/21/2024 12:40 PM EST Office Visit [facility] Endocrinology [address], [address] [place] [address] Kajal Smith MD [address] [facility] [address] [place] [address] 01/25/2025 3:20 PM EST Office Visit [facility] Nephrology, Bone & Mineral Metabolism [address] [facility], [address] [place] [address] David Winslow MD [address] [facility] [address] [place] [address] 03/25/2025 11:20 AM EDT Office Visit [facility] Endocrinology [address] [place] [address] (1), Rigoberto Graves Fellow documented as of this encounter Visit Diagnoses Diagnosis Adrenal insufficiency (CMS/HCC)- Primary Glucocorticoid deficiency documented in this encounter Administered Medications Inactive Administered Medications - up to 3 most recent administrations Medication Order MAR Action Action Date Dose Rate Site cosyntropin (Cortrosyn) injection 0.25 mg 0.25 mg, Intravenous, Once, 1 dose, On Fri03/12/24 at 1100, RoutineIndications:Adrenal insufficiency (CMS/HCC) Given 03/12/2024 10:35 AM EDT 0.25 mg documented in this encounter Additional Health Concerns Assessment Noted Time A fall risk assessment has been complete d for the patient 09/01/2023 2:29 PM EDT A Body Mass Index follow-up plan has been documented for the patient 03/12/2024 10:36 AM EDT documented as of this encounter Care Teams Veneer Drier Tailer Relationship Specialty Start Date End Date Uyen Hines MD [address] [place] [address] PCP - General 05/31/22 Telma Smith APRN [address] [place] [address] Nurse Practitioner Neurosurgery 09/01/23 documented as of this encounter
--- OUTSIDE RECORDS SUMMARY | 2024-10-19 10:53 | XMS_ITS | Encounter Summary ---
Author Organization [facility] Address [address] [id number] Care Team Providers Care Mask Inspector Name Role Phone Uyen Hines MD Primary Care Provider [phone] Telma Smith APRN Unavailable Reason for Visit * Reason Comments Follow-up Neck Pain Back Pain * Consultation (Routine) - Closed Specialty Diagnoses / Procedures Referred By Christopher yuan Referred To Contact Neurosurgery Diagnoses CVA (cerebral vascular accident) (CMS/HCC) [facility] [address], [address] [place] [address] Phone: tel: fax: Referral ID Status Reason Start Date Expiration Date V isits Requested Visits Authorized [id number] Closed Specialty Services Required 08/01/2023 01/30/2025 1 1 Encounter Details Date Type Department Care Team (Late st Contact Info) Description 09/01/2023 2:00 PM EDT Office Visit [facility] [address], 1st [place] [address] Telma Smith, JOB SUPERINTENDENT [address] [place] [address] Lumbar radiculopathy (Primary Dx); CVA (cerebral vascular accident) (CMS/HCC) Social History Tobacco Use Types Packs/Day [...] Sign Reading Time Taken Comments Blood Pressure 124/84 09/01/2023 2:19 PM EDT Pulse 87 09/01/2023 2:19 PM EDT Temperature - - Respiratory Rate 18 09/01/2023 2:19 PM EDT Oxygen Saturation 99% 09/01/2023 2:19 PM EDT Inhaled Oxygen Concentration - - Weight 111 kg (245 lb) 09/01/2023 2:19 PM EDT Height 162.6 cm (5' 4 ) 09/01/2023 2:19 PM EDT Body Mass Index 42.05 09/01/2023 2:19 PM EDT documented in this encounter Miscellaneous Notes * Progress Notes - Telma Smith, JOB SUPERINTENDENT - 09/01/2023 2:00 PM EDT We had the pleasure of seeing your patient in our clinic today for continued Neurosurgical evaluation. Chief Complaint Patient presents with Follow-up Neck Pain Back Pain History Of Present Illness Tessie Roa is a 43 y.o. female who returns to the neurosurgical clinic today regarding neck andback pain. As you may recall, she consulted me on 04/09/2023 regarding the same thing. I ordered anEMG and lumbar MRI. Her entire left upper extremity and bilateral lower extremities are completely numb. She also endorses numbness in the right anterior thigh. She reports electric pain in her posterior and lateral legs that radiates to the knees bilaterally. Her back and leg pain is worse with walking and standing. No alleviating factors identified. She is tried ice, sitting, lying down, heat, muscle relaxers. Positive shopping cart sign. Stairs are difficult for her. She states she is dropping objects. Having difficulty with opening jars, but can open a soda can and buttoning shirt. She states her balance is off as she is stumbling, but she is not falling. She has had 2 months of physical therapy for her neck and shoulders without pain benefit. She underwent epidural steroid injections, which provided 0% relief. Past Medical History: Diagnosis Date Anxiety Chronic kidney failure Depression Esophagitis GERD (gastroesophageal reflux disease) Kidney stones Osteopenia PTSD (post-traumatic stress disorder) Skin cancer Thyroid dysfunction Past Surgical History: Procedure Laterality Date SECTION, LOW TRANSVERSE COLONOSCOPY ESOPHAGOGASTRODUODENOSCOPY GALLBLADDER SURGERY Anastomosis Of Gallbladder LITHOTRIPSY OTHER SURGICAL HISTORY Exploratory Laparoscopy SHOULDER SURGERY Left TONSILLECTOMY TUBAL LIGATION Family History Problem Relation Name Age of Onset Colon cancer Other Breast cancer Other Ovarian cancer Other Ovarian cancer Other Social History Tobacco Use Smoking status: Never Smokeless tobacco: Never Vaping Use Vaping Use: Never used Substance Use Topics Alcohol use: Not Currently Drug use: Never Comment: Drug use: No drug use Current Outpatient Medications Medication Instructions acetaminophen (TYLENOL) 500 mg, Oral, As needed Ajovy 225 MG/1.5ML solution auto-injector No dose, route, or frequency recorded. ALPRAZolam (XANAX) 1 mg, Oral, 3 times daily PRN aspirin 81 mg, ZZ Daily RT busPIRone (Buspar) 7.5 MG tablet Daily busPIRone (BUSPAR) 10 mg, Oral, 3 times daily, DIRECTED carvedilol (COREG) 6.25 mg, Oral escitalopram (LEXAPRO) 20 mg, Oral, Daily Euthyrox 200 mcg, Oral, Daily Flovent HFA 220 MCG/ACT inhaler 4 puffs, 2 times daily fluconazole (Diflucan) 150 MG tablet No dose, route, or frequency recorded. lamoTRIgine (LaMICtal) 25 MG tablet TAKE 2 TABLETS BY MOUTH ONCE DAILY DIRECTED lisinopril 10 mg, ZZ Daily RT lisinopril 20 mg, Oral, Daily pantoprazole (PROTONIX) 40 mg, Oral, 2 times daily Qulipta 60 MG tablet No dose, route, or frequency recorded. solifenacin (VESICARE) 10 mg, Oral, Daily tiZANidine (ZANAFLEX) 4 mg, Oral, Nightly Ubrelvy 100 MG tablet TAKE 1 TABLET BY MOUTH NEEDED FOR MIGRAINE HEADACHE AT ONSET OF SYMPTOMS. MAY REPEAT AFTER 2 HOURS IF SYMPTOMS PERSIST. MAX OF 2 IN 24 HOURS. MAX OF 4 PER WEEK. Allergies Nsaids Review of Systems 14 point review of systems was performed and was negative except as noted per HPI. Visit Vitals BP 124/84 Pulse 87 Resp 18 Ht 1.626 m (5' 4 ) Wt 111 kg (245 lb) SpO2 99% BMI 42.05 kg/m?? Smoking Status Never BSA 2.24 m?? Objective: General Physical Exam Constitutional No acute distress. Patient is appropriate historian and cooperative throughout exam.Well nourished, well groomed. Alert and oriented x4. Head Normocephalic and atraumatic. Eyes Pupils are equal, round, and reactive to light. Neck No tracheal deviation or JVD noted. No previous surgical scars Cardiovascular Minimal to no peripheral edema, intact distal pulses Pulmonary/Chest No increased effort noted, no shortness of breath Neurological Alert and oriented to person, place, and time Skin Skin is warm and dry Psychiatric Normal mood and affect, behavior and judgment MUSCULOSKELETAL EXAM: Region Exam Left (+/-) Right (+/-) Cervical Musculature Tender w/ Palpation - - Cervical Facets Pain w/ Extension - - Upper Extremity Motor Strength Right Left C5: Deltoid 4/5 4-/5 C6: Biceps 4/5 4-/5 C7: Triceps 4/5 4-/5 C8: Ferryboat Captain 4/5 4-/5 T1: Intrinsics 4/5 4-/5 Lower Extremity Motor Strength Right Left L2: Hip Flexor 5/5 4/5 L3: Knee extensor 5/5 4/5 L4: Dorsiflexion 5/5 4/5 L5: EHL 5/5 4/5 S1: Plantar Flexion 5/5 4/5 Upper Extremity Sensation Right Left C4: Collar Intact Intact C5: Lateral AC Intact Intact C6: Thumbs Intact Intact C7: Middle fingers Intact Intact T1: Medial AC Intact Intact T2: Axilla Intact Intact Lower Extremity Sensation Right Left L2: Proximal anterior thigh Intact Intact L3: Mid anterior thigh Intact Intact L4: Medial leg/foot, great toe (Saphenous n.) Intact Intact L5: Dorsum of mid foot Intact Diminished S1: Lateral leg/foot, little toe, Back of leg (Sural n.) Intact Diminished Reflexes & Tests Right Left C5: Biceps 2/4 2/4 C6: Brachialis 2/4 2/4 C7: Triceps 2/4 2/4 L4: Patellar 1/4 1/4 S1: Achilles /4 11/27 Go's Positive Positive Clonus Negative Negative SLR Negative Negative DWIGHT Negative Negative Lhermitte's Pain shoots down spine from occiput to in between shoulder blades Imaging Studies I personally reviewed and interpreted MRI of the cervical spine obtained 02/14/2023 and MRI of the lumbar spine dated 04/25/2023. Imaging demonstrates the following stenosis: Central canal stenosis Right neural foramen Left neural foramen C1-2 No significant stenosis No significant stenosis No significant stenosis C2-C3 No significant stenosis No significant stenosis No significant stenosis C3-C4 No significant stenosis No significant stenosis No significant stenosis C4-C5 Mild Mild Mild C5-C6 Mild to moderate Moderate Moderate C6-C7 Mild Mild Mild C7-T1 No significant stenosis No significant stenosis No significant stenosis Central canal stenosis Right neural foramen Left neural foramen T12-L1 No significant stenosis No significant stenosis No significant stenosis L1-L2 No significant stenosis No significant stenosis No significant stenosis L2-L3 No significant stenosis No significant stenosis No significant stenosis L3-L4 No significant stenosis No significant stenosis No significant stenosis L4-L5 No significant stenosis No significant stenosis No significant stenosis L5-S1 Mild to moderate Mild to moderate Mild to moderate I have also personally viewed the radiology reports. Assessment and Plan Tessie Roa is a 43 y.o. female who returns to the neurosurgical clinic today regarding neck andback pain. She has exhausted all conservative management. I will review her symptoms and imaging with Dr. Daugherty and contact her with the updated plan of care. I educated the patient on red flag symptoms to seek any medical attention. The patient verbalized understanding. She should contact the clinic with any worsening of symptoms, questions, or concerns. Telma Smith APRN [facility] Department of Neurosurgery This note was dictated using voice to text software and may contain minor errors Addendum 09/11/2023: I personally reviewed the patient's symptoms imaging Dr. Daugherty. Dr. Daugherty did not see any stenosis amenable to neurosurgical intervention. We recommend the patient proceed withinvestigating a spinal cord stimulator and or pain pump with Dr. Bueno. Contacted the patient with the updated plan of care and she is agreeable to it. I educated the patient on red flag symptoms to seek any medical attention. The patient verbalized understanding. She should contact the clinic with any worsening of symptoms, questions, or concerns. Telma Smith APRN [facility] Department of Neurosurgery documented in this encounter Plan of Treatment Upcoming Encounters Date Type Department Care Team (Late st Contact Info) Description 12/21/2024 12:40 PM EST Office Visit [facility] Endocrinology [address], [address] [place] [address] Kajal Smith MD [address] [place] [phone] 01/25/2025 3:20 PM EST Office Visit [facility] Nephrology, Bone & Mineral Metabolism [address], [address] [place] [address] David Winslow MD [address] [facility] [address] [address] [address] [place] [address] 03/25/2025 11:20 AM EDT Office Visit [facility] Endocrinology [address], [address] [place] [address] (1), Rigoberto Graves Fellow documented as of this encounter Visit Diagnoses Diagnosis Lumbar radiculopathy- Primary Thoracic or lumbosacral neuritis or radiculitis, unspecified CVA (cerebral vascular accident) (CMS/HCC) Unspecified cerebral artery occlusion with cerebral infarction documented in this encounter Additional Health Concerns Assessment Noted Time A fall risk assessment has been complete d for the patient 09/01/2023 2:29 PM EDT A Body Mass Index follow-up plan has been documented for the patient 09/11/2023 9:20 AM EDT documented as of this encounter Care Teams Mask Inspector Relationship Specialty Start Date End Date Uyen Hines MD [address] [place] [address] PCP - General 05/31/22 Telma Smith, CAMELIA [address] [place] [address] Nurse Practitioner Neurosurgery 09/01/23 documented as of this encounter
--- OUTSIDE RECORDS SUMMARY | 2024-10-19 10:53 | XMS_ITS | Encounter Summary ---
Author Organization [facility] Address [address] [place] [address] Care Team Providers Care Retail Loss Prevention Specialist Name Role Phone Uyen Hines MD Primary Care Provider [phone] Telma Smith FLOTATION TANK OPERATOR Unavailable [phone] Encounter Details Date Type Department Care Team (Late Contact Info) Description 07/01/2024 Telephone [facility] Nephrology, Bone & Mineral Metabolism [address] [facility] [address] [facility], [address] [place] [address] Ebonie Escobedo, FOLDER HAND GS - 7 MAIN MEDICAL-SURGICAL Social History Tobacco Use Types Packs/Day Years [...] encounter Miscellaneous Notes * Telephone Encounter - Ebonie Escobedo - 07/01/2024 1:48 PM EDT 07/01/24 called pt left Vm documented in this encounter Plan of Treatment Upcoming Encounters Date Type Department Care Team (Late Contact Info) Description 12/21/2024 12:40 PM EST Office Visit [facility] Endocrinology [address], [address] [place] [address] Kajal Smith MD [address] [facility] [address] [place] [address] 01/25/2025 3:20 PM EST Office Visit [facility] Nephrology, Bone & Mineral Metabolism [address] [facility], [address] [place] [address] David Winslow MD [address] [facility] [address] [place] [address] 03/25/2025 11:20 AM EDT Office Visit [facility] Endocrinology [address], [address] [place] [address] (1), Rigoberto Graves Fellow [...] as of this encounter Care Teams Retail Loss Prevention Specialist Relationship Specialty Start Date End Date Uyen Hines MD [address] [place] [address] PCP - General 05/31/22 Telma Smith APRN [address] [place] [address] Nurse Practitioner Neurosurgery 09/01/23 documented as of this encounter
--- OUTSIDE RECORDS SUMMARY | 2024-10-19 10:53 | XMS_ITS | Encounter Summary ---
Author Organization [facility] Address [address] [id number] Care Team Providers Care Decorating Kiln Operator Name Role Phone Uyen Hines MD Primary Care Provider [phone] Telma Smith NEUROSCIENTIST Unavailable [phone] Reason for Visit * Reason Comments Med Refill Encounter Details Date Type Department Care Team (Late st Contact Info) Description 02/17/2024 Refill [place] [facility] [address], [address] [place] [address] Telma Smith, NEUROSCIENTIST [address] [place] [address] Lumbar radiculopathy Social History Tobacco [...] encounter Miscellaneous Notes * Telephone Encounter - Candelaria Chavez APRN - 02/17/2024 4:54 PM EDT No longer under care documented in this encounter Plan of Treatment Upcoming Encounters Date Type Department Care Team (Late st Contact Info) Description 12/21/2024 12:40 PM EST Office Visit [facility] Endocrinology [address], [address] [place] [address] Kajal Smith MD [address] [facility] [place] [address] 01/25/2025 3:20 PM EST Office Visit [facility] [place] Nephrology, Bone & Mineral Metabolism [address] [facility], [address] [place] [address] David Winslow MD [address] [facility] [address] [place] [address] 03/25/2025 11:20 AM EDT Office Visit [facility] Endocrinology [address], [address] [place] [address] (1), Rigoberto Graves Fellow documented [...] documented as of this encounter Care Teams Decorating Kiln Operator Relationship Specialty Start Date End Date Uyen Hines MD [address] [place] [address] PCP - General 05/31/22 Telma Smith APRN [address] [place] [address] Nurse Practitioner Neurosurgery 09/01/23 documented as of this encounter
--- OUTSIDE RECORDS SUMMARY | 2024-10-19 10:53 | XMS_ITS | Encounter Summary ---
Author Organization [facility] Address [address] [id number] Care Team Providers Care Social Professionals Name Role Phone Uyen Hines MD Primary Care Provider [phone] Telma Smith SUPERINTENDENT HORTICULTURE Unavailable Encounter Details Date Type Department Care Team (Late st Contact Info) Description 10/13/2023 Refill [place] [facility] [address], [address] [place] [address] Telma Smith, SUPERINTENDENT HORTICULTURE [address] [place] [address] Lumbar radiculopathy (Primary Dx) Social History [...] Description 12/21/2024 12:40 PM EST Office Visit [facility] Endocrinology [address], [address] [place] [address] Kajal Smith MD [address] [facility] [address] [place] [address] 01/25/2025 3:20 PM EST Office Visit [facility] Nephrology, Bone & Mineral Metabolism [address], [address] [place] [address] David Winslow MD [address] [place] [address] 03/25/2025 11:20 AM EDT Office Visit [facility] Endocrinology [address], [address] [place] [address] (1), Rigoberto Graves Fellow documented [...] documented as of this encounter Care Teams Social Professionals Relationship Specialty Start Date End Date Uyen Hines MD [address] [place] [address] PCP - General 05/31/22 Telma Smith APRN [address] [facility] [address] [place] [address] Nurse Practitioner Neurosurgery 09/01/23 documented as of this encounter
--- OUTSIDE RECORDS SUMMARY | 2024-10-19 10:53 | XMS_ITS | Encounter Summary ---
Author Organization [facility] Address [address] [id number] Care Team Providers Care Shade Cutter Name Role Phone Uyen Hines MD Primary Care Provider [phone] Reason for Visit * Reason Onset Date Comments HCN - Patient Message 07/31/2023 Referral s tatus Encounter Details Date Type Department Care Team (Late st Contact Info) Description 07/31/2023 Telephone [place] [facility] [address], [address] [place] [address] Telma Smith, PIPE ORGAN TUNER AND REPAIRER [address] [place] [address] HCN - Patient Message (Referral status) Social History Tobacco Use Types Packs/Day Years [...] encounter Miscellaneous Notes * Telephone Encounter - Rosalva Amos - 08/01/2023 7:08 AM EDT Referral for vascular complete, sent to vascular team and they will call to schedule her an appointment. * Telephone Encounter - Alondra Mcdaniels - 07/31/2023 1:10 PM EDT Patient Phone Message Reason for Call: Patient is checking on the status of her referral. Please advise. Best contact number and optimal time of day to reach caller: [phone] Note: Please do not reply to this message. Follow-up communication and further actions as a result of this message need to be communicated with the patient directly, if the patient is not active onMyChart. If the patient is active on MyChart, they will receive notification of the communication/outcome via [employer]. documented in this encounter Plan of Treatment Upcoming Encounters Date Type Department Care Team ([facility] st Contact Info) Description 12/21/2024 12:40 PM EST Office Visit [facility] Endocrinology [address] [facility], [address] [place] [address] Kajal Smith MD [address] [address] 01/25/2025 3:20 PM EST Office Visit [facility] Nephrology, Bone & Mineral Metabolism [address] [facility], [address] [place] [address] David Winslow MD [address] [address] 03/25/2025 11:20 AM EDT Office Visit [facility] Endocrinology [address] [facility], [address] [place] [address] (1), Rigoberto Graves Fellow documented as of this encounter Visit Diagnoses Not on filedocumented in this encounter Additional Health Concerns Assessment Noted Time A fall risk assessment has been complete d for the patient 06/02/2023 10:42 AM EDT A Body Mass Index follow-up plan has been documented for the patient 04/10/2023 12:25 PM EDT documented as of this encounter Care Teams Shade Cutter Relationship Specialty Start Date End Date Uyen Hines MD [address] [place] [address] PCP - General 05/31/22 documented as of this encounter
--- OUTSIDE RECORDS SUMMARY | 2024-10-19 10:53 | XMS_ITS | Encounter Summary ---
Author Organization [facility] Address [address] [id number] Care Team Providers Care Entry Level Staff Accountant Name Role Phone Uyen Hines MD Primary Care Provider [phone] Telma Smith HIRE CAR DRIVER Unavailable Reason for Visit * Reason Comments Med Refill Encounter Details Date Type Department Care Team (Late st Contact Info) Description 01/28/2024 Refill [place] [facility] [address], [address] [place] [address] Telma Smith, HIRE CAR DRIVER [address] [place] [address] Lumbar radiculopathy Social History Tobacco [...] Description 12/21/2024 12:40 PM EST [facility] [address] [place] [address] Kajal Smith MD [address] [facility] [address] [place] [address] 01/25/2025 3:20 PM EST Office Visit [facility] Nephrology, Bone & Mineral Metabolism [address] [facility], [address] [place] [address] David Winslow MD [address] [facility] [address] [place] [address] 03/25/2025 11:20 AM EDT Office Visit [facility] Endocrinology [address] [facility], [address] [place] [address] (1), Rigoberto Graves Fellow documented [...] documented as of this encounter Care Teams Entry Level Staff Accountant Relationship Specialty Start Date End Date Uyen Hines MD [address] [place] [address] PCP - General 05/31/22 Telma Smith APRN [address] [facility] [address] [place] [address] Nurse Practitioner Neurosurgery 09/01/23 documented as of this encounter
--- OUTSIDE RECORDS SUMMARY | 2024-10-19 10:53 | XMS_ITS | Encounter Summary ---
Author Organization [facility] Address [address] [id number] Care Team Providers Care Recycling Operations Manager Name Role Phone Uyen Hines MD Primary Care Provider [phone] Telma Smith HYDRAULIC PLUMBER HELPER Unavailable [phone] Encounter Details Date Type Department Care Team (Late st Contact Info) Description 09/09/2023 Telephone [facility] [address], [address] [place] [address] Telma Smith, HYDRAULIC PLUMBER HELPER [address] [place] [address] Social History Tobacco Use Types Packs/Day Years [...] encounter Miscellaneous Notes * Telephone Encounter - Todd Osei Vasile - 09/10/2023 4:09 PM EDT Patient Phone Message Reason for Call: Patient returning a call from the clinic. Best contact number and optimal time of day to reach caller: [phone] Note: Please do not reply to this message. Follow-up communication and further actions as a result of this message need to be communicated with the patient directly, if the patient is not active onMyChart. If the patient is active on MyChart, they will receive notification of the communication/outcome via MyChart. * Telephone Encounter - Stacy Reilly - 09/09/2023 9:57 AM EDT Patient Phone Message Reason for Call: Pt is calling to see if anything has been decided on for surgery. She asks to speak with Telma. Please advise. Best contact number and optimal time of day to reach caller: [phone] Note: Please do not reply to this [...] Description 12/21/2024 12:40 PM EST Office Visit [facility] Endocrinology [address] [facility], [address] [place] [address] Kajal Smith MD [address] [facility] [address] [place] [address] 01/25/2025 3:20 PM EST Office Visit [facility] Nephrology, Bone & Mineral Metabolism [address] [facility], [address] [place] [address] David Winslow MD [address] [facility] [address] [place] [address] 03/25/2025 11:20 AM EDT Office Visit [facility] Endocrinology [address], [address] [place] [address] (1), Rigoberto Graves Fellow documented as of this encounter Visit Diagnoses Not on filedocumented in this encounter Additional Health Concerns Assessment Noted Time A fall risk assessment has been complete d for the patient 09/01/2023 2:29 PM EDT A Body Mass Index follow-up plan has been documented for the patient 09/11/2023 9:20 AM EDT documented as of this encounter Care Teams Recycling Operations Manager Relationship Specialty Start Date End Date Uyen Hines MD [address] [place], [place] [id number] PCP - General 05/31/22 Telma Smith APRN [address] [facility] [address] [place] [id number] Nurse Practitioner Neurosurgery 09/01/23 documented as of this encounter
--- OUTSIDE RECORDS SUMMARY | 2024-10-19 10:53 | XMS_ITS | Encounter Summary ---
Author Organization [facility] Address [address] [place] [address] Care Team Providers Care Area Field Manager Name Role Phone Uyen Hines MD Primary Care Provider Telma Smith OUTDOOR ADVENTURE GUIDES Unavailable Reason for Referral * Imaging (Routine) - Closed Specialty Diagnoses / Procedures Referred By Christopher yuan Referred To Contact Radiology Diagnoses Nephrolithiasis Procedures US Renal Complete Te Deshpande MD [address] [place] [phone] Phone: tel: fax: Referral ID Status Reason Start Date Expiration Date Visits Re quested Visits Authorized [id number] Closed 07/12/2024 01/11/2026 1 1 Reason for Visit * Reason Comments Consult * Consultation (Routine) - Closed Specialty Diagnoses / Procedures Referred By Christopher yuan Referred To Contact Nephrology Diagnoses Renal tubular acidosis, type 4 Rigoberto Graves MD [address] [address] Phone: tel: fax: Pancho Manzanares MD [address] [address] Phone: tel: fax: Referral ID Status Reason Start Date Expiration Date V isits Requested Visits Authorized [id number] Closed Specialty Services Required 06/08/2024 12/08/2025 1 1 Encounter Details Date Type Department Care Team (Late st Contact Info) Description 07/12/2024 3:00 PM EDT Consult [facility] [place] Nephrology, Bone & Mineral Metabolism [address], [address] [place] [address] Anjelica Feldman MD [address] [place] [id number] Nephrolithiasis (Primary Dx); Renal tubular acidosis, type 4; Hyporeninemic hypoaldosteronism (CMS/HCC); Adrenal insufficiency (CMS/HCC) Social History Tobacco Use [...] Sign Reading Time Taken Comments Blood Pressure 102/72 07/12/2024 3:01 PM EDT Pulse 65 07/12/2024 3:01 PM EDT Temperature 36.7 ??C (98.1 ??F) 07/12/2024 3:01 PM ED T Respiratory Rate - - Oxygen Saturation 97% 07/12/2024 3:01 PM EDT Inhaled Oxygen Concentration - - Weight 105 kg (231 lb 0.7 oz) 07/12/2024 3:01 PM EDT Height 165.1 cm (5' 5 ) 07/12/2024 3:01 PM EDT Body Mass Index 38.45 07/12/2024 3:01 PM EDT documented in this encounter Miscellaneous Notes * Progress Notes - Anjelica Feldman MD - 07/12/2024 3:00 PM EDT Nephrology Consult Note Patient: Tessie Reffitt Date of Consult: 07/12/2024 Time of Consult: 12:02 PM Referring Provider: [address] [facility] [address] / [facility] [address] Reason for Consult: Type 4 RTA HPI: Ms. Tessie Roa is a 43 y.o. 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 Patient was recently diagnosed with adrenal insufficiency and has been following with Endocrinology. She is currently on hydrocortisone 10 mg in the morning 5 mg and on fludrocortisone 0.1 mg daily. Continues to have symptomatic hypotension, with blood pressures in the 70s, this is typically in the afternoon. In May she had an shawna level of less than 3 and PRA 0.12. Per results of labs she has had normal kidney function. She has no family history of any kidney dysfunction. She reports all of her symptoms with her primary adrenal insufficiency began approximately 8 months ago when she had extreme fatigue/weakness. At that time she went to a local emergency department and was found to be hypotensive. She was underwent an extensive workup including an MRI of her brain which was negative. She is currently following with Endocrinology. She denies taking any NSAIDs or ACEi/Arb medications at this time. Of note she does have history of symptomatic kidney stones, she last passed a stone 2 months ago and typically passes around 3 or so stones per year. Never had surgery to remove a stone or required astent. She has never had a stone analysis or a 24 hour urine. ROS: ROS was obtained in 14 points and is negative except otherwise as noted in the HPI. History: Past Medical History: Diagnosis Date Anxiety Chronic kidney failure Depression Esophagitis GERD (gastroesophageal reflux disease) Kidney stones Osteopenia PTSD (post-traumatic stress disorder) Skin cancer Thyroid dysfunction Patient Active Problem List Diagnosis Class III obesity with body mass index (BMI) of 40.0 or higher (CMS/HCC) Adrenal insufficiency (CMS/HCC) Past Surgical History: Procedure Laterality Date SECTION, LOW TRANSVERSE COLONOSCOPY ESOPHAGOGASTRODUODENOSCOPY GALLBLADDER SURGERY Anastomosis Of Gallbladder LITHOTRIPSY OTHER SURGICAL HISTORY Exploratory Laparoscopy SHOULDER SURGERY Left TONSILLECTOMY TUBAL LIGATION Family History Problem Relation Name Age of Onset Colon cancer Other Breast cancer Other Ovarian cancer Other Ovarian cancer Other Social History Socioeconomic History Marital status: Spouse name: Not on file Number of children: Not on file Years of education: Not on file Highest education level: Not on file Occupational History Not on file Tobacco Use Smoking status: Never Smokeless tobacco: Never Vaping Use Vaping status: Never Used Substance and Sexual Activity Alcohol use: Not Currently Drug use: Never Comment: Drug use: No drug use Sexual activity: Not on file Other Topics Concern Not on file Social History Narrative Not on file Social Determinants of Health Financial Resource Strain: Not on file Food Insecurity: No Food Insecurity (12/11/2023) Received from [facility] Food Insecurity : Not on file : Not on file Transportation Needs: Not on file Physical Activity: Not on file Stress: Not on file Social Connections: Low Risk (12/11/2023) Received from [facility] Family and Community Support : Not on file : Not on file Intimate Partner Violence: Unknown (08/31/2023) Received from [facility] Abuse Screen Unsafe at Home or Work/School: Not on file Feels Threatened by Someone?: Not on file Does Anyone Keep You from Contacting Others or Doint Things Outside the Home?: Not on file Physical Sign of Abuse Present: Not on file Housing Stability: Low Risk (12/11/2023) Received from [facility] Housing Stability : Not on file : Not on file Allergies Allergen Reactions Nsaids Other - please document in the comment field Kidney Medications: Home Medications: Current Outpatient Medications: acetaminophen (Tylenol) 500 MG tablet, Take 1 tablet (500 mg) by mouth if needed., Disp: , Rfl: ALPRAZolam (Xanax) 1 MG tablet, Take 1 tablet (1 mg) by mouth 3 (three) times a day if needed., Disp: , Rfl: amitriptyline (Elavil) 50 MG tablet, TAKE 1 TABLET BY MOUTH ONCE DAILY AT NIGHT FOR 14 DAYS, Disp: 14 tablet, Rfl: 0 busPIRone (Buspar) 10 MG tablet, Take 1 tablet (10 mg) by mouth 3 (three) times a day. DIRECTED,Disp: , Rfl: carvedilol (Coreg) 6.25 MG tablet, Take 1 tablet (6.25 mg) by mouth. (Patient not taking: Reported on 03/08/2024), Disp: , Rfl: colestipol (Colestid) 1 g tablet, Take 1 tablet (1 g) by mouth twice a day., Disp: , Rfl: Dupixent 300 MG/2ML solution pen-injector, , Disp: , Rfl: escitalopram (Lexapro) 20 MG tablet, Take 1 tablet (20 mg) by mouth 1 (one) time each day., Disp: ,Rfl: fludrocortisone (Florinef) 0.1 MG tablet, Take 1 tablet (0.1 mg) by mouth 1 (one) time each day., Disp: 30 tablet, Rfl: 1 hydrocortisone (Cortef) 5 MG tablet, Take 2 tablets by mouth in the morning and 1 tablet in the PM., Disp: 100 tablet, Rfl: 0 lamoTRIgine (LaMICtal) 25 MG tablet, TAKE 2 TABLETS BY MOUTH ONCE DAILY DIRECTED, Disp: , Rfl: levothyroxine (Synthroid, Levoxyl) 100 MCG tablet, Take 1 tablet (100 mcg) by mouth 1 (one) time each day., Disp: 90 tablet, Rfl: 3 lisinopril 20 MG tablet, Take 1 tablet (20 mg) by mouth 1 (one) time each day. (Patient not taking:Reported on 03/08/2024), Disp: , Rfl: pancrelipase, Jsx-Aiwo-Gslz, (Creon) [id number] units capsule delayed-release particles capsule, Take 2 capsule by mouth 3 times daily with meals and 1 cap with snacks.., Disp: , Rfl: pantoprazole (Protonix) 40 MG EC tablet, Take 1 tablet (40 mg) by mouth twice a day., Disp: , Rfl: prazosin (Minipress) 2 MG capsule, , Disp: , Rfl: pregabalin (Lyrica) 75 MG capsule, Take 1 capsule (75 mg) by mouth 2 (two) times a day for 14 days., Disp: 28 capsule, Rfl: 0 Qulipta 60 MG tablet, , Disp: , Rfl: solifenacin (VESIcare) 10 MG tablet, Take 1 tablet (10 mg) by mouth 1 (one) time each day., Disp: ,Rfl: tiZANidine (Zanaflex) 4 MG tablet, Take 1 tablet (4 mg) by mouth every night., Disp: , Rfl: tolterodine LA (Detrol LA) 4 MG 24 hr capsule, , Disp: , Rfl: Ubrelvy 100 MG tablet, TAKE 1 TABLET BY MOUTH NEEDED FOR MIGRAINE HEADACHE AT ONSET OF SYMPTOMS.MAY REPEAT AFTER 2 HOURS IF SYMPTOMS PERSIST. MAX OF 2 IN 24 HOURS. MAX OF 4 PER WEEK., Disp: , Rfl: Vraylar 1.5 MG capsule, Take 1 capsule (1.5 mg) by mouth., Disp: , Rfl: Current Facility-Administered Medications: cosyntropin (Cortrosyn) injection 250 mcg, 250 mcg, Intramuscular, Once, Kapil Buckner MD Physical Exam: Visit Vitals Smoking Status Never Gen: Sitting up in chair; awake, alert HEENT: MMM, NC/AT Neck: Supple CV: Audible S1, S2, no m/r/g appreciated Pulm: Clear to auscultation, no increased work of breathing on room air Abd: Soft, non-distended Extremities: Trace LE edema Skin: No rashes noted on observed skin Neuro: Awake and alert. Non focal, appropriate mood Laboratory: Renal Panel: Lab Results Component Value Date NA 138 05/31/2022 K 4.1 05/31/2022 CL 104 05/31/2022 CO2 24 05/31/2022 BUN 9 05/31/2022 MBD: Lab Results Component Value Date CALCIUM 9.6 05/31/2022 CBC: Lab Results Component Value Date WBC 5.74 05/31/2022 RBC 4.78 05/31/2022 HGB 13.6 05/31/2022 HCT 42.5 05/31/2022 PLT 430 (H) 05/31/2022 MCV 89 05/31/2022 MCH 28.5 05/31/2022 MCHC 32.0 05/31/2022 RDW 13.4 05/31/2022 NRBC 0.0 05/31/2022 Iron studies: No results found for: TIBC IMPRESSION:: Ms. Tessie Roa is a 43 y.o. 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 Currently on hydrocortisone 10 mg/5 mg and fludrocortisone 0.1 mg but still having symptomatic hypotension. Not taking NSAIDs, ACEi/ARB or Calcineurin Inhibitors. Also, does not have type 2 diabetes Nephrolithiasis No hx of stone analysis or 24 hour urine analysis Passes 3 stones per a year Recommendations and plan: At this time does not have any laboratory evidence consistent with RTA type 4 but does appear to bein a hyporeninemic hypoaldosteronism state which is secondary to her primary AI. Agree with continuing hydrocortisone and fludrocortisone, if patient's continuing to have symptomatic hypotension recommended she contact Endocrinology to adjust the doses of these medications. Recommended patient eat a high salt diet and wear compression stockings to help with her hypotension. Will obtain Renal US and will have her f/u in 6mo [facility] (Dr. Winslow) Anjelica Feldman MD Nephrology/Critical Care Medicine Fellow Pager: [phone] Cosigned by Te Deshpande MD at 07/13/2024 4:44 PM EDT Associated attestation - Te Deshpande MD - 07/13/2024 4:44 PM EDT I saw and evaluated the patient. I discussed the case with the resident/fellow and agree with the findings and plan as documented. Patient with low plasma renin activity and low aldosterone in the setting of adrenal insufficiency and supplementation of hydrocortisone at time of labs and now on fludrocortisone as well. Patient without current evidence of electrolyte disturbances or acidosis on most recent labs so appears to be tolerating low PRA and low aldosterone levels well. Patient counseled on making sure future healthcare providers are aware of her adrenal insufficiency when undergoing any surgeries/procedures or having an event requiring a stress response. Patient endorsing several (2-3) episodes of nephrolithiasis over the past several years. Will startwith renal US then pending results, consider 24 hour Litholink. Patient to collect stone and bring to lab/clinic should another episode occur. Follow up in 6 months regarding suspected nephrolithiasis. documented in this encounter Plan of Treatment Upcoming Encounters Date Type Department Care Team (Late st Contact Info) Description 12/21/2024 12:40 PM EST Office Visit [facility] Endocrinology [address] [facility], [address] [place] [address] Kajal Smith MD [address] [facility] [address] [place] [address] 01/25/2025 3:20 PM EST Office Visit [facility] [place] Nephrology, Bone & Mineral Metabolism [address] [facility], [address] [place] [address] David Winsolw MD [address] [facility] [address] [place] [address] 03/25/2025 11:20 AM EDT Office Visit [facility] Endocrinology [address] [facility], [address] [place] [address] (1), Rigoberto Graves Fellow documented as of this encounter Results * US Renal Complete (08/16/2024 2:52 PM [...] on 08/16/2024 3:28 PM Te Deshpande MD IMG US PROCEDURES Final Result documented in this encounter Visit Diagnoses Diagnosis Nephrolithiasis- Primary Calculus of kidney Renal tubular acidosis, type 4 Other specified disorders resulting from impaired renal function Hyporeninemic hypoaldosteronism (CMS/HCC) Adrenal insufficiency (CMS/HCC) Glucocorticoid deficiency Nephrolithiasis Calculus of kidney documented in this encounter Additional Health Concerns Assessment Noted Time A fall risk assessment has been complete d for the patient 07/12/2024 3:08 PM EDT A Body Mass Index follow-up plan has been documented for the patient 07/13/2024 4:45 PM EDT documented as of this encounter Care Teams Area Field Manager Relationship Specialty Start Date End Date Uyen Hines MD [address] [place] [address] PCP - General 05/31/22 Telma Smith APRN [address] [place] [address] Nurse Practitioner Neurosurgery 09/01/23 documented as of this encounter
--- OUTSIDE RECORDS SUMMARY | 2024-10-19 10:53 | XMS_ITS | Encounter Summary ---
Author Organization [facility] Address [address] [place] [address] Care Team Providers Care Service Center Coordinator Name Role Phone Uyen Hines MD Primary Care Provider [phone] Telma Smith APRN Unavailable [phone] Encounter Details Date Type Department Care Team (Latest Contact Info) Description 09/01/2023 Travel Social History Tobacco Use Types Packs/Day [...] Description 12/21/2024 12:40 PM EST Office Visit [facility] Endocrinology [address] [place] [address] Kajal Smith MD [address] [place] [address] 01/25/2025 3:20 PM EST Office Visit [facility] [place] Nephrology, Bone & Mineral Metabolism [address] [facility], [address] [place] [address] David Winslow MD [address] [facility] [address] [place] [address] 03/25/2025 11:20 AM EDT [facility] [address] [place] [address] (1), Rigoberto Graves Fellow documented as of this encounter Visit Diagnoses Not on filedocumented in this encounter Additional Health Concerns Assessment Noted Time A fall risk assessment has been complete d for the patient 09/01/2023 2:29 PM EDT A Body Mass Index follow-up plan has been documented for the patient 09/11/2023 9:20 AM EDT documented as of this encounter Care Teams Service Center Coordinator Relationship Specialty Start Date End Date Uyen Hines MD [address] [place] [address] PCP - General 05/31/22 Telma Smith APRN [address] [facility] [address] [place] [address] Nurse Practitioner Neurosurgery 09/01/23 documented as of this encounter
--- OUTSIDE RECORDS SUMMARY | 2024-10-19 10:53 | XMS_ITS | Encounter Summary ---
Author Organization [facility] Address [address] [id number] Care Team Providers Care Supervisor Motor Vehicle Assembly Name Role Phone Uyen Hines MD Primary Care Provider [phone] Telma Smith MAINTENANCE ANALYST Unavailable [phone] Reason for Referral * Imaging (Routine) - Closed Specialty Diagnoses / Procedures Referred By Christopher yuan Referred To Contact Radiology Diagnoses Nephrolithiasis Procedures US Renal Complete Te Deshpande MD [address] [address] Phone: tel: fax: Referral ID Status Reason Start Date Expiration Date Visits Re quested Visits Authorized [id number] Closed 07/12/2024 01/11/2026 1 1 Reason for Visit * Imaging (Routine) - Closed Specialty Diagnoses / Procedures Referred By Christopher yuan Referred To Contact Radiology Diagnoses Nephrolithiasis Procedures US Renal Complete Te Deshpande MD [address] [address] Phone: tel: fax: Referral ID Status Reason Start Date Expiration Date Visits Re quested Visits Authorized [id number] Closed 07/12/2024 01/11/2026 1 1 Encounter Details Date Type Department Care Team (Latest Contact Info) Description 08/16/2024 2:00 PM EDT - 08/16/2024 11:59 PM EDT Hospital Encounter [facility] Radiology [address]nd [place] [address] Nephrolithiasis Discharge Disposition: Home or Self Care Social [...] encounter Medications at Time of Discharge acetaminophen (Tylenol) 500 MG tablet Take 1 tablet (500 mg) by mouth if needed. ALPRAZolam (Xanax) 1 MG tablet Take 1 tablet (1 mg) by mouth 3 (three) times a day if needed. 03/27/2022 Budesonide (Eohilia) 2 MG/10ML suspension Take 2 mg by mouth twice a day. 07/08/2024 busPIRone (Buspar) 10 MG tablet Take 1 tablet (10 mg) by mouth 3 (three) times a day. DIRECTED 08/30/2023 colestipol (Colestid) 1 g tablet Take 1 tablet (1 g) by mouth twice a day. 04/09/2024 Dupixent 300 MG/2ML solution pen-injector 03/16/2024 escitalopram (Lexapro) 20 MG tablet Take 1 tablet (20 mg) by mouth 1 (one) time each day. 03/27/2022 lamoTRIgine (LaMICtal) 25 MG tablet TAKE 2 TABLETS BY MOUTH ONCE DAILY DIRECTED 08/30/2023 levothyroxine (Synthroid, Levoxyl) 100 MCG tabletIndications:Ac quired hypothyroidism Take 1 tablet (100 mcg) by mouth 1 (one) time each day. 90 tablet 3 03/17/2024 levothyroxine (Synthroid, Levoxyl) 150 MCG tablet Take 1 tablet (150 mcg) by mouth 1 (one) time each day. 06/24/2024 pancrelipase, Tsg-Wfnj-Zigp, (Creon) 98538-898822 units capsule delayed-release particles capsule Take 2 capsule by mouth 3 times daily with meals and 1 cap with snacks.. 05/05/2024 pantoprazole (Protonix) 40 MG EC tablet Take 1 tablet (40 mg) by mouth twice a day. 09/25/2022 prazosin (Minipress) 2 MG capsule 04/14/2024 pregabalin (Lyrica) 75 MG capsuleIndications:L umbar radiculopathy Take 1 capsule (75 mg) by mouth 2 (two) times a day for 14 days. 28 capsule 09/01/2023 9 Qulipta 60 MG tablet 08/28/2023 solifenacin (VESIcare) 10 MG tablet Take 1 tablet (10 mg) by mouth 1 (one) time each day. 07/10/2023 tiZANidine (Zanaflex) 4 MG tablet Take 1 tablet (4 mg) by mouth every night. 03/25/2023 tolterodine LA (Detrol LA) 4 MG 24 hr capsule 02/27/2024 Ubrelvy 100 MG tablet TAKE 1 TABLET BY MOUTH NEEDED FOR MIGRAINE HEADACHE AT ONSET OF SYMPTOMS. MAY REPEAT AFTER 2 HOURS IF SYMPTOMS PERSIST. MAX OF 2 IN 24 HOURS. MAX OF 4 PER WEEK. 03/25/2023 Vraylar 1.5 MG capsule Take 1 capsule (1.5 mg) by mouth. 03/26/2024 amitriptyline (Elavil) 50 MG tabletIndications:Sarah Beth mbar radiculopathy TAKE 1 TABLET BY MOUTH ONCE DAILY AT NIGHT FOR 14 DAYS 14 tablet 01/28/2024 4 fludrocortisone (Florinef) 0.1 MG tabletIndications:Ad renal insufficiency (CMS/HCC) Take 1 tablet (0.1 mg) by mouth 1 (one) time each day. 30 tablet 1 06/08/2024 4 hydrocortisone (Cortef) 5 MG tabletIndications:Ad renal insufficiency (CMS/HCC) Take 2 tablets by mouth in the morning and 1 tablet in the PM. 100 tablet 05/28/2024 4 prazosin (Minipress) 1 MG capsule TAKE 1 CAPSULE BY MOUTH ONCE DAILY AT BEDTIME. TAKE ALONG WITH THE 2MG CAPSULE FOR A TOTAL DOSE OF 3MG 06/24/2024 documented as of this encounter Plan of Treatment Upcoming Encounters Date Type Department Care Team (Late st Contact Info) Description 12/21/2024 12:40 PM EST Office Visit [facility] Endocrinology [address] [facility], [address] [place] [address] Kajal Smith MD [address] [facility] [address] [place] [address] 01/25/2025 3:20 PM EST Office Visit [facility] Nephrology, Bone & Mineral Metabolism [address] [facility], [address] [place] [address] David Winslow MD [address] [facility] [address] [place] [address] 03/25/2025 11:20 AM EDT Office Visit [facility] Endocrinology [address] [facility], [address] [place] [address] (1), Rigoberto Graves Fellow documented as of this encounter Procedures Procedure Name Priority Date/Time Associated Diagnosis Comments US RENAL COMPLETE Routine 08/16/2024 2:5 2 PM EDT Nephrolithiasis documented in this encounter Results * US Renal Complete [...] Sinan Daugherty MD on 08/16/2024 3:28 PM us Te Deshpande MD IMG US PROCEDURES Final Result documented in this encounter Visit Diagnoses Diagnosis Nephrolithiasis Calculus of kidney documented in this encounter Additional Health Concerns Assessment Noted Time A fall risk assessment has been complete d for the patient 07/12/2024 3:08 PM EDT A Body Mass Index follow-up plan has been documented for the patient 07/13/2024 4:45 PM EDT documented as of this encounter Care Teams Supervisor Motor Vehicle Assembly Relationship Specialty Start Date End Date Uyen Hines MD [address] [place] [address] PCP - General 05/31/22 Telma Smith APRN [address] [place] [address] Nurse Practitioner Neurosurgery 09/01/23 documented as of this encounter
--- OUTSIDE RECORDS SUMMARY | 2024-10-19 10:53 | XMS_ITS | Encounter Summary ---
Author Organization [facility] Address [address] [place] [address] Care Team Providers Care Skid Wrapper Name Role Phone Uyen Hines MD Primary Care Provider [phone] Telma Smith PAN CLEANER Unavailable [phone] Encounter Details Date Type Department Care Team (Late st Contact Info) Description 03/16/2024 Refill [facility] Endocrinology [address] [facility], [address] [place] [address] Kapil Hyde MD [address] [place], [place] [id number] Social History Tobacco Use Types Packs/Day Years [...] as of this encounter Miscellaneous Notes * Addendum Note - Kapil Hyde MD - 03/16/2024 5:27 PM EDTAddended by: KAPIL HYDE on: 03/16/2024 05:27 PM Modules accepted: Orders * Telephone Encounter - Kapil Hyde MD - 03/16/2024 8:37 AM EDT Called and discussed plan with patient. She states she has accidentally has only been taking 20/10 of hydrocortisone and not taking her dose of 30mg/20mg. I discussed with patient that we are planning to taper her medications. New taper is listed below, and instructed to increase to the previous dose with any worsening N/V/D or low blood pressure. Now: 15/10mg 03/22: 10/5mg /6: 5/5mg 5/13: 5 mg until seen in clinic documented in this encounter Plan of Treatment Upcoming Encounters Date Type Department Care Team (Late st Contact Info) Description 12/21/2024 12:40 PM EST Office Visit [facility] Endocrinology [address] [facility], [address] [place] [address] Kajal Smith MD [address] [address] 01/25/2025 3:20 PM EST Office Visit [facility] Nephrology, Bone & Mineral Metabolism [address] [facility], [address] [place] [address] David Winslow MD [address] [facility] [address] [place] [address] 03/25/2025 11:20 AM EDT Office Visit [facility] Endocrinology [address] [facility], [address] [place] [address] (1), Rigoberto Graves Fellow documented as of this encounter Visit Diagnoses Not on filedocumented in this encounter Additional Health Concerns Assessment Noted Time A fall risk assessment has been complete d for the patient 09/01/2023 2:29 PM EDT A Body Mass Index follow-up plan has been documented for the patient 03/12/2024 10:36 AM EDT documented as of this encounter Care Teams Skid Wrapper Relationship Specialty Start Date End Date Uyen Hines MD [address] [place] [address] PCP - General 05/31/22 Telma Smith APRN [address] [facility] [address] [place] [address] Nurse Practitioner Neurosurgery 09/01/23 documented as of this encounter
--- OUTSIDE RECORDS SUMMARY | 2024-10-19 10:53 | XMS_ITS | Encounter Summary ---
Author Organization [facility] Address [address] [id number] Care Team Providers Care Clothing Patternmaker Name Role Phone Uyen Hines MD Primary Care Provider [phone] Telma Smith INSPECTOR WIRE PRODUCTS Unavailable [phone] Reason for Visit * Reason Onset Date Comments Med Refill 09/16/2023 Encounter Details Date Type Department Care Team (Late st Contact Info) Description 09/16/2023 Telephone [facility] [address], [address] [place] [address] Telma Smith, INSPECTOR WIRE PRODUCTS [address] [place] [address] Med Refill Social History Tobacco Use Types Packs/Day Years [...] encounter Miscellaneous Notes * Telephone Encounter - Telma Smith, INSPECTOR WIRE PRODUCTS - 09/17/2023 10:00 AM EDT Called patient. Switched it elavil and placed a referral to Dr Bueno since his team demands it documented in this encounter Plan of Treatment Upcoming Encounters Date Type Department Care Team (Late st Contact Info) Description 12/21/2024 12:40 PM EST Office Visit [facility] Endocrinology [address] [facility], [address] [place] [address] Kajal Smith MD [address] [facility] [address] [place] [address] 01/25/2025 3:20 PM EST Office Visit [facility] Nephrology, Bone & Mineral Metabolism [address] [facility], [address] [place] [address] David Winslow MD [address] [facility] [address] [place] [address] 03/25/2025 11:20 AM EDT Office Visit [facility] Endocrinology [address] [facility], [address] [place] [address] (1), Rigoberto Graves Fellow documented [...] documented as of this encounter Care Teams Clothing Patternmaker Relationship Specialty Start Date End Date Uyen Hines MD [address] [place] [address] PCP - General 05/31/22 Telma Smith APRN [address] [place] [address] Nurse Practitioner Neurosurgery 09/01/23 documented as of this encounter
--- OUTSIDE RECORDS SUMMARY | 2024-10-19 10:53 | XMS_ITS | Encounter Summary ---
Author Organization [facility] Address [address] [id number] Care Team Providers Care Supervisory Air Intercept Controller Name Role Phone Uyen Hines MD Primary Care Provider [phone] Telma Smith APRN Unavailable [phone] Reason for Visit * Reason Onset Date Comments HCN - Patient Message 06/07/2024 Encounter Details Date Type Department Care Team (Late st Contact Info) Description 06/07/2024 Telephone [facility] Endocrinology [facility] [facility], [address] [place] [address] (1), Rigoberto Graves Fellow HCN - Patient Message Social History Tobacco Use Types Packs/Day Years [...] encounter Miscellaneous Notes * Telephone Encounter - Kerry Tejada - 06/07/2024 3:55 PM EDT Patient Phone Message Reason for Call: Pt is requesting a call to discuss lab results. Best contact number and optimal time of day to reach caller: [phone] Note: Please do not reply to this [...] Upcoming Encounters Date Type Department Care Team ([facility] st Contact Info) Description 12/21/2024 12:40 PM EST Office Visit [facility] Endocrinology [address] [facility], [address] [place] [address] Kajal Smith MD [address] [facility] [address] [place] [address] 01/25/2025 3:20 PM EST Office Visit [facility] Nephrology, Bone & Mineral Metabolism [address] [facility], [address] [place] [address] David Winslow MD [address] [facility] [address] [place] [address] 03/25/2025 11:20 AM EDT Office Visit [facility] Endocrinology [address] [facility], [address] [place] [address] (1), Rigoberto Graves Fellow documented as of this encounter Visit Diagnoses Not on filedocumented in this encounter Additional Health Concerns Assessment Noted Time A fall risk assessment has been complete d for the patient 09/01/2023 2:29 PM EDT A Body Mass Index follow-up plan has been documented for the patient 05/30/2024 10:28 AM EDT documented as of this encounter Care Teams Supervisory Air Intercept Controller Relationship Specialty Start Date End Date Uyen Hines MD [address] [place] [address] PCP - General 05/31/22 Telma Smith APRN [address] [place] [address] Nurse Practitioner Neurosurgery 09/01/23 documented as of this encounter
--- OUTSIDE RECORDS SUMMARY | 2024-10-19 10:53 | XMS_ITS | Encounter Summary ---
Author Organization [facility] Address [address] [id number] Care Team Providers Care Trail Construction Worker Name Role Phone Uyen Hines MD Primary Care Provider [phone] Telma Smith SPACE BUYER Unavailable [phone] Encounter Details Date Type Department Care Team (Late st Contact Info) Description 09/16/2023 Telephone [place] [facility] [address] [place] [address] Telma Smith, SPACE BUYER [address] [place] [address] Social History Tobacco Use Types [...] encounter Miscellaneous Notes * Telephone Encounter - Louie Engel - 09/17/2023 2:46 PM EDT Faxed referral already that facility will review and schedule * Telephone Encounter - Stacy Reilly - 09/16/2023 10:51 AM EDT Patient Phone Message Reason for Call: Pt is calling to get referral faxed to Dr Bueno, pain management at [phone]. Please advise. Best contact number and optimal time of day to reach caller: [phone] Note: Please do not reply to this message. Follow-up communication and further actions as a result of this message need to be communicated with the patient directly, if the patient is not active onMyChart. If the patient is active on MyChart, they will receive notification of the communication/outcome via [employer]. documented in this encounter Plan of Treatment Upcoming Encounters Date Type Department Care Team ([facility] st Contact Info) Description 12/21/2024 12:40 PM EST Office Visit [facility] Endocrinology [address], [address] [place] [address] Kajal Smith MD [address] [phone] 01/25/2025 3:20 PM EST Office Visit [facility] Nephrology, Bone & Mineral Metabolism [address] [facility], [address] [place] [address] David Winslow MD [address] [facility] [address] [place] [address] 03/25/2025 11:20 AM EDT Office Visit [facility] Endocrinology [address] [facility], [address] [place] [phone] (1), Rigoberto Graves Fellow documented as of this encounter Visit Diagnoses Not on filedocumented in this encounter Additional Health Concerns Assessment Noted Time A fall risk assessment has been complete d for the patient 09/01/2023 2:29 PM EDT A Body Mass Index follow-up plan has been documented for the patient 09/11/2023 9:20 AM EDT documented as of this encounter Care Teams Trail Construction Worker Relationship Specialty Start Date End Date Uyen Hines MD [address] [place] [address] PCP - General 05/31/22 Telma Smith APRN [address] [phone] Nurse Practitioner Neurosurgery 09/01/23 documented as of this encounter
--- OUTSIDE RECORDS SUMMARY | 2024-10-19 10:53 | XMS_ITS | Encounter Summary ---
Author Organization [facility] Address [address] [place], [place] [address] Care Team Providers Care Fishing Vessel Operator Name Role Phone Uyen Hines MD Primary Care Provider [phone] Telma Smith MOTOR EXPERT Unavailable Encounter Details Date Type Department Care Team (Late st Contact Info) Description 04/01/2024 Telephone [facility] Endocrinology [address] [facility], [address] [place] [address] Estefania Ny, DO [address] [facility] [address] [place] [address] Social History Tobacco Use Types [...] encounter Miscellaneous Notes * Progress Notes - Estefania Ny DO - 04/01/2024 5:22 PM EDT Notified by resident, Dr. Buckner, that patient had ran out of Hydrocortisone so new script was sent in to complete taper documented in this encounter Plan of Treatment Upcoming Encounters Date Type Department Care Team (Late st Contact Info) Description 12/21/2024 12:40 PM EST Office Visit [facility] Endocrinology [address] [facility], [address] [place] [address] Kajal Smith MD [address] [facility] [address] [place] [phone] 01/25/2025 3:20 PM EST Office Visit [facility] Nephrology, Bone & Mineral Metabolism [address] [facility], [address] [place] [address] David Winslow MD [address] [facility] [address] [place] [address] 03/25/2025 11:20 AM EDT Office Visit [facility] Endocrinology [address] [facility], [address] [place] [address] (1), Rigoberto Graves Fellow documented as of this encounter Visit Diagnoses Diagnosis Adrenal insufficiency (CMS/HCC)- Primary Glucocorticoid deficiency documented in this encounter Additional Health Concerns Assessment Noted Time A fall risk assessment has been complete d for the patient 09/01/2023 2:29 PM EDT A Body Mass Index follow-up plan has been documented for the patient 03/12/2024 10:36 AM EDT documented as of this encounter Care Teams Fishing Vessel Operator Relationship Specialty Start Date End Date Uyen Hines MD [address] [place] [address] PCP - General 05/31/22 Telma Smith APRN [address] [place] [address] Nurse Practitioner Neurosurgery 09/01/23 documented as of this encounter
--- OUTSIDE RECORDS SUMMARY | 2024-10-19 10:53 | XMS_ITS | Encounter Summary ---
Author Organization [facility] Address [address] [place] [address] Care Team Providers Care Automobile Body Worker Name Role Phone Uyen Hines MD Primary Care Provider [phone] Telma Smith APRN Unavailable [phone] Encounter Details Date Type Department Care Team (Latest Contact Info) Description 03/08/2024 Travel Social History Tobacco Use Types Packs/Day [...] Description 12/21/2024 12:40 PM EST Office Visit [facility] Endocrinology [address] [place] [address] Kajal Smith MD [address] [place] [address] 01/25/2025 3:20 PM EST Office Visit [facility] Nephrology, Bone & Mineral Metabolism [address] [facility], [address] [place] [address] David Winslow MD [address] [facility] [address] [place] [address] 03/25/2025 11:20 AM EDT [facility] [address], [address] [place] [address] (1), Rigoberto Graves Fellow documented as of this encounter Visit Diagnoses Not on filedocumented in this encounter Additional Health Concerns Assessment Noted Time A fall risk assessment has been complete d for the patient 09/01/2023 2:29 PM EDT A Body Mass Index follow-up plan has been documented for the patient 03/08/2024 11:16 AM EDT documented as of this encounter Care Teams Automobile Body Worker Relationship Specialty Start Date End Date Uyen Hines MD [address] [place] [address] PCP - General 05/31/22 Telma Smith APRN [address] [facility] [address] [place] [address] Nurse Practitioner Neurosurgery 09/01/23 documented as of this encounter
--- OUTSIDE RECORDS SUMMARY | 2024-10-19 10:53 | XMS_ITS | Encounter Summary ---
Author Organization [facility] Address [address] [place] [address] Care Team Providers Care Tow Boat Captain Name Role Phone Uyen Hines MD Primary Care Provider [phone] Telma Smith APRN Unavailable [phone] Encounter Details Date Type Department Care Team (Late st Contact Info) Description 03/09/2024 Telephone [facility] Endocrinology [address] [place] [address], [address] [place] [address] (1), Rigoberto Graves Fellow Social History Tobacco Use Types Packs/Day Years [...] encounter Miscellaneous Notes * Telephone Encounter - Jeanette Perkins - 03/09/2024 2:08 PM EDT Patient Phone Message Reason for Call: Please call patient as she needs to CANCEL and RS her stim test appointments from Friday to ? Best contact number and optimal time of day to reach caller: [phone] Note: Please do not reply to this [...] Description 12/21/2024 12:40 PM EST Office Visit [facility] Endocrinology [address] [facility], [address] [place] [address] Kajal Smith MD [address] [phone] 01/25/2025 3:20 PM EST Office Visit [facility] Nephrology, Bone & Mineral Metabolism [address] [facility], [address] [place] [address] David Winslow MD [address] [facility] [address] [place] [address] 03/25/2025 11:20 AM EDT Office Visit [facility] Endocrinology [address] [facility], [address] [place] [address] (1), Rigoberto Graves Fellow documented as of this encounter Visit Diagnoses Not on filedocumented in this encounter Additional Health Concerns Assessment Noted Time A fall risk assessment has been complete d for the patient 09/01/2023 2:29 PM EDT A Body Mass Index follow-up plan has been documented for the patient 03/08/2024 11:16 AM EDT documented as of this encounter Care Teams Tow Boat Captain Relationship Specialty Start Date End Date Uyen Hines MD [address] [place] [phone] PCP - General 05/31/22 Telma Smith APRN [address] [place] [address] Nurse Practitioner Neurosurgery 09/01/23 documented as of this encounter
--- OUTSIDE RECORDS SUMMARY | 2024-10-19 10:53 | XMS_ITS | Encounter Summary ---
Author Organization [facility] Address [address] [place] [address] Care Team Providers Care Diamond Driller Helper Name Role Phone Uyen Hines MD Primary Care Provider [phone] Telma Smith APRN Unavailable [phone] Encounter Details Date Type Department Care Team (Latest Contact Info) Description 05/28/2024 Travel Social History Tobacco Use Types Packs/Day [...] 12:40 PM EST Office Visit [facility] Endocrinology [address] , [address] [place] [address] Kajal Smith MD [address] [place] [address] 01/25/2025 3:20 PM EST Office Visit [facility] Nephrology, Bone & Mineral Metabolism [address] [facility], [address] [place] [address] David Winslow MD [address] [facility] [address] [place] [address] 03/25/2025 11:20 AM EDT [facility] [address], [address] [place] [address] (1), Rigoberto Graves Fellow documented as of this encounter Visit Diagnoses Not on filedocumented in this encounter Additional Health Concerns Assessment Noted Time A fall risk assessment has been complete d for the patient 09/01/2023 2:29 PM EDT A Body Mass Index follow-up plan has been documented for the patient 05/30/2024 10:28 AM EDT documented as of this encounter Care Teams Diamond Driller Helper Relationship Specialty Start Date End Date Uyen Hines MD [address] [place] [address] PCP - General 05/31/22 Telma Smith APRN [address] [facility] [address] [place] [address] Nurse Practitioner Neurosurgery 09/01/23 documented as of this encounter
--- OUTSIDE RECORDS SUMMARY | 2024-10-19 10:53 | XMS_ITS | Encounter Summary ---
Author Organization [facility] Address [address] [id number] Care Team Providers Care Case Finisher Name Role Phone Uyen Hines MD Primary Care Provider [phone] Telma Smith LENS CUTTER Unavailable [phone] Reason for Referral * Consultation (Routine) - Closed Specialty Diagnoses / Procedures Referred By Conthunter t Referred To Contact Nephrology Diagnoses Renal tubular acidosis, type 4 Rigoberto Graves MD [address] [place] [address] Phone: tel: fax: Pancho Manzanares MD [facility] [address] [address] Phone: tel: fax: Referral ID Status Reason Start Date Expiration Date V isits Requested Visits Authorized [id number] Closed Specialty Services Required 06/08/2024 12/08/2025 1 1 Encounter Details Date Type Department Care Team (Late st Contact Info) Description 06/08/2024 Orders Only [facility] End[facility] [address] [place] [address], DO [address] [id number] Renal tubular acidosis, type 4 (Primary Dx); Adrenal insufficiency (CMS/HCC) Social History Tobacco Use [...] Description 12/21/2024 12:40 PM EST Office Visit [facility] Endocrinology [address], [address] [place] [address] Kajal Smith MD [address] [address] 01/25/2025 3:20 PM EST Office Visit [facility] Nephrology, Bone & Mineral Metabolism [address] [facility], [address] [place] [address] David Winslow MD [address] [facility] [address] [place] [address] 03/25/2025 11:20 AM EDT Office Visit [facility] Endocrinology [address], [address] [place] [address] (1), Rigoberto Graves Fellow Scheduled Referrals Name Type Priority Associated Diagnoses Order Schedule Ambulatory referral to Nephrology Outpatient Referral Routine Renal tubular acidosis, type 4 1 Occurrences starting 06/08/2024 until 12/09/2025 documented as of this encounter Visit Diagnoses Diagnosis Renal tubular acidosis, type 4- Primary Other specified disorders resulting from impaired renal function Adrenal insufficiency (CMS/HCC) Glucocorticoid deficiency documented in this encounter Additional Health Concerns Assessment Noted Time A fall risk assessment has been complete d for the patient 09/01/2023 2:29 PM EDT A Body Mass Index follow-up plan has been documented for the patient 05/30/2024 10:28 AM EDT documented as of this encounter Care Teams Case Finisher Relationship Specialty Start Date End Date Uyen Hines MD [address] [place] [address] PCP - General 05/31/22 Telma Smith APRN [address] [phone] Nurse Practitioner Neurosurgery 09/01/23 documented as of this encounter
--- OUTSIDE RECORDS SUMMARY | 2024-10-19 10:53 | XMS_ITS | Encounter Summary ---
Author Organization [facility] Address [address] [place], [place] [id number] Care Team Providers Care Rn Cvicu Name Role Phone Uyen Hines MD Primary Care Provider [phone] Telma Smith ALTERNATIVE ENERGY ENGINEER Unavailable [phone] Reason for Visit * Reason Comments Thyroid Problem Encounter Details Date Type Department Care Team (Late st Contact Info) Description 03/08/2024 10:20 AM EDT Consult [facility] Endocrinology [address], [address] [place] [address] Rigoberto Graves MD [address] [place] [address] (2), Rigoberto Graves Fellow Adrenal insufficiency (CMS/HCC) (Primary Dx); Class III obesity with body mass index (BMI) of 40.0 or higher (CMS/HCC) Social History Tobacco Use Types Packs/Day [...] Sign Reading Time Taken Comments Blood Pressure 128/83 03/08/2024 10:21 AM EDT Pulse 67 03/08/2024 10:21 AM EDT Temperature - - Respiratory Rate - - Oxygen Saturation - - Inhaled Oxygen Concentration - - Weight 107 kg (235 lb 0.2 oz) 03/08/2024 10:21 A M EDT Height 162.6 cm (5' 4 ) 03/08/2024 10:21 AM EDT Body Mass Index 40.34 03/08/2024 10:21 AM EDT documented in this encounter Miscellaneous Notes * Progress Notes - Kapil Buckner MD - 03/08/2024 10:20 AM EDT Subjective HPI Mrs. Tessie Roa is a 43yo F with PMH of [id number], Hypothyroidism, GERD, depression who presents as a consult to Endocrine clinic for evaluation of Adrenal Insufficiency. Patient was admitted to [facility] earlier last month for worsening fatigue, weakness, and low blood [...] by phone while pt was admitted to [facility] and she was started on hydrocortisone 30mg qAM and 20mg qPM. She is seen here today for further evaluation. She states her BP has improved but [...] prior migraines. She also endorses worsen peripheral visionloss that is present on exam today. Denies any changes in weight. Orthostatics at clinic visit today are negative. Surgical hx: hysterectomy and R oophrectomy in 2014 SH: No smoking or drinking, no drug use. FH: Mother had hypothyroidism The following portions of the chart were reviewed this encounter and updated as appropriate: Tobacco Allergies Meds Problems Med Hx Surg Hx Fam Hx Review of Systems Constitutional: Positive for fatigue. Negative for chills and fever. HENT: Negative. Eyes: Positive for visual disturbance. Respiratory: Negative for shortness of breath. Cardiovascular: Negative for chest pain. Gastrointestinal: Negative. Genitourinary: Negative. Musculoskeletal: Positive for back pain. [...] Affect: Mood normal. Behavior: Behavior normal. Assessment/Plan Diagnoses and all orders for this visit: Class III obesity with body mass index (BMI) of 40.0 or higher ([facility]) Adrenal insufficiency ([facility]) - Luteinizing hormone; Future - Follicle stimulating hormone; Future - TSH; Future - T4, free; Future - Prolactin; Future - Estrogens, Fractionated, by Mass Spectrometry; Future Concern for Adrenal Insufficiency Worsening Fatigue, Weakness -pt endorsed sudden onset fatigue, weakness, and profound hypotension end of January. Workup at [facility] showed no evidence fo bacterial infection, and cortisol level was said to be 2; at the time of that phone call, ACTH was pending, she was subsequently stared on 30mg hydrocortisone qAM and 20mg qPM -symptoms have not improved -We performed orthostatic vitals today, and BP and pulse were robust and did not change with sitting/dangling. PLAN -At this time, lower concern for AI given lack of improvements in patients symptoms on steroids, etiology of apparent low cortisol remains unknown. Concern that symptoms may be secondary to polypharmacy if work is unremarkable -Scheduled for ACTH stim test Friday, 03/10 -Further workup including TSH, t4, FSH, LH, prolactin ordered -Will request formal read of MRI head to see if any concerning Pituitary Lesions -Will get the lab data from [place] -If workup is negative, will consider the many medications the patient is taking and possible drug interactions Hashimotos Thyroiditis -currently on levothyroixine 125mcg -T4 today 1.8 and TSH <0.01 -decreased levothyroxine to 100mcg today, can repeat TSH in 5-6 weeks Obesity -The patient received dietary education because they have an above normal BMI. and The patient received exercise education because they have an above normal BMI. HTN -holding home Coregr 6.25mg and lisinpril 20mg Bipolar, Depression, Anxiety -continue Lexapro 20, Buspar 10mg, Xanax 1mg PRN, Elavil 50mg Migraines -Qulipta and Ubrelvy -follow up in 1 month Addendum Component Latest Ref Rng 03/08/2024 03/12/2024 Prolactin 4.4 - 23.3 ng/mL 38.9 (H) Free T4 0.8 - 1.7 ng/dL 1.8 (H) TSH 0.40 - 4.20 uIU/mL <0.01 (L) Follicle Stimulating Hormone mIU/mL 8.7 LH mIU/mL 7.18 Cortisol Before 10am: 3.7 - 19.4. After 5pm: 2.9 - 17.3 ug/dL 6.20 ACTH 7.2 - 63 pg/mL 35.7 Cortisol,Time=30 Before 10am: 3.7 - 19.4. After 5pm: 2.9 - 17.3 ug/dL 14.60 Cortisol Time=60 Before 10am: 3.7 - 19.4. After 5pm: 2.9 - 17.3 ug/dL 13.10 Called pt and discussed results. MRI pituitary from [facility] [place] showed no evidence of pituitary macro or micro adenoma. ACTH stim test completed shows ACTH level of 35 with max cortisol response of 14.6. Called and discussed results with patient. She denies any oral steroids or any steroids joint injections. She will remain on current dose of steroids until seen again in clinic. Electronically signed by: Kapil Buckner MD [facility] ENDOCRINOLOGY [facility] [place]. [address] PHONE [phone] FAX: [phone] Cosigned by Rigoberto Graves MD at 03/15/2024 5:11 PM EDT Associated attestation - Rigoberto Graves MD - 03/15/2024 5:11 PM EDT I saw and evaluated the patient with the resident/fellow. I discussed the case with the resident/fellow and agree with the findings and plan as documented. documented in this encounter Plan of Treatment Upcoming Encounters Date Type Department Care Team (Late st Contact Info) Description 12/21/2024 12:40 PM EST Office Visit [facility] Endocrinology [address] [place] [address] Kajal Smith MD [address] [place] [address] 01/25/2025 3:20 PM EST Office Visit [facility] Nephrology, Bone & Mineral Metabolism [address] [facility], [address] [place] [address] David Winslow MD [address] [facility] [address] [place] [address] 03/25/2025 11:20 AM EDT Office Visit [facility] Endocrinology [address], [address] [place] [address] (1), Rigoberto Graves Fellow documented as of this encounter Procedures Procedure Name Priority Date/Time Associated Diagnosis Comments CORTISOL, 60 Routine 03/12/2024 11:20 AM EDT Adrenal insufficiency (CMS/HCC) CORTISOL, 30 Routine 03/12/2024 10:55 AM EDT Adrenal insufficiency (CMS/HCC) ADRENOCORTICOTROPIC HORMONE (ACTH) Routine 03/12/2024 10:15 AM EDT Adrenal insufficiency (CMS/HCC) CORTISOL Routine 03/12/2024 10:15 AM EDT Adrenal insufficiency (CMS/HCC) documented in this encounter Results * CORTISOL, 60 (03/12/2024 11:20 AM EDT) Cortisol Time=60 13.10 Before 10am: 3.7 - 19.4. After 5pm: 2.9 - 17.3 ug/dL 03/12/2024 2:49 PM EDT [facility] Comment: Testing performed on Carrasco Take Down Sorter, standardized against LONG-TERM Reference Standard concentration values assigned by LC-MS/MS and verified by BCR 192 and BCR 193 certified reference materials. Expected Response: 30-60 minutes post cosyntropin (ACTH)-stimulation: Cortisol >= 14.6 ug/dL A peak cortisol concentration <14.6 ug/dL 30-60 mins post-cosyntropin (ACTH)-stimulation supports a biochemical diagnosis of adrenal insufficiency. Interpretation of results should be made in conjunction with clinical signs and symptoms. Blood Venous blood specimen / Unknown Venipuncture / Unknown 03/12/2024 11:20 AM EDT 03/12/2024 11:20 AM EDT us Rigoberto Graves MD LAB BLOOD ORDERABLES Final Resu lt Performing Organization Address [facility] Co de Phone Number [facility] [address] [place] [address] * Cortisol, 30 (03/12/2024 10:55 AM EDT) Cortisol,Time=30 14.60 Before 10am: 3.7 - 19.4. After 5pm: 2.9 - 17.3 ug/dL 03/12/2024 2:49 PM EDT [facility] Comment: Testing performed on Carrasco Take Down Sorter, standardized against LONG-TERM Reference Standard concentration values assigned by LC-MS/MS and verified by BCR 192 and BCR 193 certified reference materials. Expected Response: 30-60 minutes post cosyntropin (ACTH)-stimulation: Cortisol >= 14.6 ug/dL A peak cortisol concentration <14.6 ug/dL 30-60 mins post-cosyntropin (ACTH)-stimulation supports a biochemical diagnosis of adrenal insufficiency. Interpretation of results should be made in conjunction with clinical signs and symptoms. Blood Venous blood specimen / Unknown Venipuncture / Unknown 03/12/2024 10:55 AM EDT 03/12/2024 10:55 AM EDT us Rigoberto Graves MD LAB BLOOD ORDERABLES Final Resu lt Performing Organization Address [facility] de Phone Number [facility] [address] [place] [address] * ACTH (03/12/2024 10:15 AM EDT) ACTH 35.7 7.2 - 63 pg/mL 03/12/2024 1:06 PM EDT [facility] Blood Venous blood specimen / Unknown Venipuncture / Unknown 03/12/2024 10:15 AM EDT 03/12/2024 10:15 AM EDT us Rigoberto Graves MD LAB BLOOD ORDERABLES Final Resu lt Performing Organization Address [facility] Co de Phone Number [facility] [address] [place] [address] * Cortisol, Time=0 (03/12/2024 10:15 AM EDT) Cortisol 6.20 Before 10am: 3.7 - 19.4. After 5pm: 2.9 - 17.3 ug/dL 03/12/2024 2:49 PM EDT [facility] Comment:Testing performed on Carrasco Take Down Sorter, standardized against LONG-TERM Reference Standard concentration values assigned by LC-MS/MS and verified by BCR 192 and BCR 193 certified reference materials. Blood Venous blood specimen / Unknown Venipuncture / Unknown 03/12/2024 10:15 AM EDT 03/12/2024 10:15 AM EDT us Rigoberto Graves MD LAB REF LAB BLOOD AND FLUID ORD Final Result [facility] [address] [place] [address] * Estrogens, Fractionated, by Mass Spectrometry (03/08/2024 11:26 AM EDT) Estradiol by Media Relations Specialist 36.5 pg/mL 03/10/2024 7:51 PM EDT [facility] ([facility]) Estrogen Total Calculation 101.0 pg/mL 03/10/2024 7:51 PM EDT [facility] ([facility]) Estrone by Media Relations Specialist 64.5 pg/mL 03/10/2024 7:51 PM EDT [facility] ([facility]) Blood Venous blood specimen / Unknown Venipuncture / Unknown 03/08/2024 11:26 AM EDT 03/08/2024 11:26 AM EDT Narrative [facility] ([facility]) - 03/10/2024 7:51 PM EDT REFERENCE INTERVAL: Estradiol by Media Relations Specialist For a complete set of all established reference intervals, refer to [facility]/Tests/Pub/[id number]. This test was developed and its performance characteristics determined by [facility]. It has not been cleared or approved by the [place] Food and Drug Administration. This test was performed in a CLIA certified laboratory and is intended for clinical purposes. INTERPRETIVE INFORMATION: Estrone by Media Relations Specialist For a complete set of all established reference intervals, refer to [facility]/Tests/Pub/[id number]. This test was developed and its performance characteristics determined by [facility]. It has not been cleared or approved by the [place] Food and Drug Administration. This test was performed in a CLIA certified laboratory and is intended for clinical purposes. Reference interval of estrogens ?(pg/mL) ?? Estrone ?Estradiol ?Total Estrogens Early follicular ?? <150.0 ?30.0-100.0 ?? 30.0-250.0 Late follicular ? 100.0-250.0 ??100.0-400.0 ??200.0-650.0 Luteal ? <200.0 ?50.0-150.0 ?? 50.0-350.0 Post-menopausal ? 3.0-32.0 ? 2.0-21.0 ? 5.0-52.0 REFERENCE INTERVAL: Estrogens Total Calculation For a complete set of all established reference intervals, refer to [facility]/Tests/Pub/[id number]. Performed By: [facility] [address] [place] [address] Human Resource Advisor: Pancho Estrada MD, PhD [place] Number: [id number] us Rigoberto Graves MD LAB BLOOD ORDERABLES Final Resu lt [facility] ([facility]) [address] [phone] * (ABNORMAL) Prolactin (03/08/2024 11:26 AM EDT) Pathologist [facility] Prolactin, Serum 38.9(H) 4.4 - 23.3 ng/mL 03/08/2024 2:18 PM EDT [facility] Blood Venous blood specimen / Unknown Venipuncture / Unknown 03/08/2024 11:26 AM EDT 03/08/2024 11:26 AM EDT Narrative [facility] - 03/08/2024 2:18 PM EDT Performed by Robbie electrochemiluminescent immunoassay which is traceable to the Prolactin 3rd IRP (WHO 84/500). Results obtained with different test methods or kits cannot be used interchangeably. us Rigoberto Graves MD LAB BLOOD ORDERABLES Final Resu Performing Organization Address [facility] de Phone Number [facility] [address] [place] [address] * (ABNORMAL) T4, free (03/08/2024 11:26 AM EDT) Free T4, Plasma 1.8(H) 0.8 - 1.7 ng/dL 03/08/2024 2:54 PM EDT [facility] Blood Venous blood specimen / Unknown Venipuncture / Unknown 03/08/2024 11:26 AM EDT 03/08/2024 11:26 AM EDT Narrative [facility] - 03/08/2024 2:54 PM EDT Free T4 Trimester Specific Ranges 1st Trimester ??0.9??- 1.50 ng/dL 2nd Trimester ??0.7 - 1.40 ng/dL 3rd Trimester ??0.7??- 1.24 ng/dL Rigoberto Graves MD LAB BLOOD ORDERABLES Final Resu lt Performing Organization Address [facility] de Phone Number [facility] [address] [place] [address] * (ABNORMAL) TSH (03/08/2024 11:26 AM EDT) Thyroid Stimulating Hormone, Plasma <0.01(L) 0.40 - 4.20 uIU/mL 03/08/2024 2:54 PM EDT [facility] Blood Venous blood specimen / Unknown Venipuncture / Unknown 03/08/2024 11:26 AM EDT 03/08/2024 11:26 AM EDT Narrative [facility] - 03/08/2024 2:54 PM EDT Trimester Specific Ranges ?TSH (??IU/mL) 1st Trimester ??0.1 ??- 3.0 2nd Trimester ??0.19 - 4.06 3rd Trimester ??0.3 ??- 3.7 us Rigoberto Graves MD LAB BLOOD ORDERABLES Final Resu lt [facility] [address] [place] [address] * Follicle stimulating hormone (03/08/2024 11:26 AM EDT) FSH 8.7 mIU/mL 03/08/2024 2:18 PM EDT [facility] Blood Venous blood specimen / Unknown Venipuncture / Unknown 03/08/2024 11:26 AM EDT 03/08/2024 11:26 AM EDT [facility] - 03/08/2024 2:18 PM EDT FSH Female Reference Ranges: ?? Garett Stage 1: ?0.6 - 8.4 mIU/mL ?? Garett Stage 2: ?0.6 - 8.9 mIU/mL ?? Garett Stage 3: ?0.5 - 8.9 mIU/mL ?? Garett Stage 4-5: ?0.7 - 9.3 mIU/mL ?? Adult Female >17 years: ?? Follicular: ?3.5 - 12.5 mIU/mL ?? Midcycle: ?4.7 - 21.5 mIU/mL ?? Luteal: ?1.7 - 7.7 mIU/mL ?? Postmenopause: ? 25.8 - 134.8 mIU/mL ?? : ? low to undetectable Rigoberto Graves MD LAB BLOOD ORDERABLES Final Resu lt [facility] [address] [place] [address] * Luteinizing hormone (03/08/2024 11:26 AM EDT) Luteinizing Hormone 7.18 mIU/mL 03/08/2024 2:18 PM EDT [facility] Blood Venous blood specimen / Unknown Venipuncture / Unknown 03/08/2024 11:26 AM EDT 03/08/2024 11:26 AM EDT Narrative [facility] - 03/08/2024 2:18 PM EDT Female Reference Ranges: ?Garett Stage 1: ?< 9.4 mIU/mL ?Garett Stage 2: ?< 16.1 mIU/mL ?Garett Stage 3: ?< 23.1 mIU/mL ?Garett Stage 4-5: ?< 19.2 mIU/mL ? Adult Female >17 years: ?Follicular: ? 2.4 - 12.6 mIU/mL ?Midcycle: ?14.0 - 95.6 mIU/mL ?Luteal: ? 1.0 - 11.5 mIU/mL ?Postmenopause: ?7.7 - 58.5 mIU/mL Rigoberto Graves MD LAB BLOOD ORDERABLES Final Resu lt [facility] [address] [place] [address] documented in this encounter Visit Diagnoses Diagnosis Adrenal insufficiency (CMS/HCC)- Primary Glucocorticoid deficiency Class III obesity with body mass index (BMI) of 40.0 or higher (CMS/HCC) documented in this encounter Additional Health Concerns Assessment Noted Time A fall risk assessment has been complete d for the patient 09/01/2023 2:29 PM EDT A Body Mass Index follow-up plan has been documented for the patient 03/08/2024 11:16 AM EDT documented as of this encounter Care Teams Rn Cvicu Relationship Specialty Start Date End Date Uyen Hines MD [address] [place] [address] PCP - General 05/31/22 Telma Smith APRN [address] [facility] [address] [place] [id number] Nurse Practitioner Neurosurgery 09/01/23 documented as of this encounter
--- OUTSIDE RECORDS SUMMARY | 2024-10-19 10:54 | XMS_ITS | Encounter Summary ---
Author Organization [facility] Address [address] [place] [address] Care Team Providers Care Director Of Diversity And Inclusion Name Role Phone Uyen Hines MD Primary Care Provider Encounter Details Date Type Department Care Team ([facility] st Contact Info) Description 08/29/2022 Telephone [facility] [address] [place] [address] Sandra Ely NP [address] [address] Social History Tobacco Use Types Packs/Day Years Used Date Smoking Tobacco: Never Smokeless Tobacco: Never Alcohol Use Standard Drinks/Week Comments Yes 0 (1 standard drink = 0.6 oz pur e alcohol) Occasional Comments Unknown Sex and Gender Information Value Date Recorded Sex Assigned at Not on file Legal Sex Female 11:48 AM EDT Gender Identity Not on file Sexual Orientation Not on file COVID-19 Exposure Response Date Recorded In the last 10 days, have yo u been in contact with someone who was confirmed or suspected to have Coronavirus/COVID-19? No / Unsure 08/07/2022 9:25 AM EDT documented as of this encounter Miscellaneous Notes * Telephone Encounter - Lefty Austin - 08/29/2022 8:28 AM EDT Left the patient a voicemail to schedule a follow up appointment. documented in this encounter Plan of Treatment Not on file documented as of this encounter Visit Diagnoses Not on filedocumented in this encounter Care Teams Director Of Diversity And Inclusion Relationship Specialty Start Date End Date Uyen Hines MD [address] [place] [id number] PCP - General Family Medicine 05/03/22 documented as of this encounter
--- OUTSIDE RECORDS SUMMARY | 2024-10-19 10:54 | XMS_ITS | Encounter Summary ---
Author Organization [facility] Address [address] [place] [address] Care Team Providers Care Lard Mixer Name Role Phone Uyen Hines MD Primary Care Provider [phone] Encounter Details Date Type Department Care Team (Latest Contact Info) Description 04/09/2023 Travel Social History Tobacco Use Types Packs/Day [...] Office Visit [facility] Endocrinology [address], [address] [place] [address] Kajal Smith MD [address] [place] [address] 01/25/2025 3:20 PM EST Office Visit [facility] Nephrology, Bone & Mineral Metabolism [address], [address] [place] [address] David Winslow MD [address] [place] [address] 03/25/2025 11:20 AM EDT Office Visit [facility] Endocrinology [address], [address] [place] [address] (1), Rigoberto Star Fellow documented as of this encounter Visit Diagnoses Not on filedocumented in this encounter Additional Health Concerns Assessment Noted Time A fall risk assessment has been complete d for the patient 04/09/2023 11:45 AM EDT A Body Mass Index follow-up plan has been documented for the patient 04/10/2023 12:25 PM EDT documented as of this encounter Care Teams Lard Mixer Relationship Specialty Start Date End Date Uyen Hines MD [address] [place] [address] PCP - General 05/31/22 documented as of this encounter
--- OUTSIDE RECORDS SUMMARY | 2024-10-19 10:54 | XMS_ITS | Encounter Summary ---
Author Organization [facility] Address [address] [place] [address] Care Team Providers Care Mud Logger Name Role Phone Uyen Hines MD Primary Care Provider [phone] Reason for Visit * (Routine) - Closed Specialty Diagnoses / Procedures Referred By Contac t Referred To Contact Radiology Procedures XR Chest PA & Lateral Chemo Valenzuela Jr., MD [address] [place] [address] Phone: tel: fax: Referral ID Status Reason Start Date Expiration Date Visits Re quested Visits Authorized [id number] Closed 06/01/2020 06/01/2021 1 1 Encounter Details Date Type Department Care Team (Latest Contact Info) Description 06/01/2020 3:32 PM EDT - 06/01/2020 11:59 PM EDT Hospital Encounter [facility] XRAY [address] [place] [address] Chemo Valenzuela Jr., MD [address] [place] [phone] Discharge Disposition: Home or Self Care Social History Tobacco Use Types Packs/Day Years Used Date Smoking Tobacco: Never Assessed Comments Unknown Sex and Gender Information Value Date Recorded Sex Assigned at Not on file Legal Sex Female 11:43 AM EDT Gender Identity Not on file Sexual Orientation Not on file documented as of this encounter Medications at Time of Discharge benzoyl peroxide 5 % external liquid Apply three times prior to surgery as directed. 148 g 06/01/2020 4:17 PM EDT 06/01/2020 documented as of this encounter Plan of Treatment Not on file documented as of this encounter Procedures Procedure Name Priority Date/Time Associated Diagnosis Comments XR CHEST PA AND LATERAL Routine 06/01/2020 3:40 PM EDT documented in this encounter Results * XR Chest PA & Lateral (06/01/2020 3:40 PM EDT) Anatomical Region Laterality Modality Body, Chest N/A Radiographic Corin ging 06/02/2020 9:33 AM EDT Impressions 06/02/2020 12:49 PM EDT No acute cardiopulmonary disease. D: ??06/02/2020 E: ??06/02/2020 This report was finalized on 06/02/2020 12:[address] Lynnette Prieto MD. Narrative 06/02/2020 12:49 PM EDT EXAMINATION: XR CHEST, PA AND LATERAL-06/01/2020: INDICATION: PRE-OP. COMPARISON: NONE. FINDINGS: PA and lateral views of the chest reveal cardiac and mediastinal silhouettes within normal limits. The lung vyas are grossly clear. No focal parenchymal opacification present. ??No pleural effusion or pneumothorax. Degenerative changes seen within the spine. Pulmonary vascularity is within normal limits. ? Procedure Note Lynnette Prieto MD - 06/02/2020 EXAMINATION: XR CHEST, PA AND LATERAL-06/01/2020: INDICATION: PRE-OP. COMPARISON: NONE. FINDINGS: PA and lateral views of the chest reveal cardiac and mediastinal silhouettes within normal limits. The lung vyas are grossly clear. No focal parenchymal opacification present. No pleural effusion or pneumothorax. Degenerative changes seen within the spine. Pulmonary vascularity is within normal limits. IMPRESSION: No acute cardiopulmonary disease. E: 06/02/2020 This report was finalized on 06/02/2020 12:[address] Lynnette Prieto MD. Chemo Valenzuela Jr., MD IMG DIAGNOSTIC IMAGING ORDERABLES Final Result documented in this encounter Visit Diagnoses Not on filedocumented in this encounter Care Teams Mud Logger Relationship Specialty Start Date End Date Flora, Uyen E, MD PCP - General Family Medicine 06/01/20 documented as of this encounter
--- OUTSIDE RECORDS SUMMARY | 2024-10-19 10:54 | XMS_ITS | Encounter Summary ---
Author Organization [facility] Address [address] [place] [address] Care Team Providers Care Financial Compliance Examiner Name Role Phone Uyen Hines MD Primary Care Provider [phone] Reason for Visit * Reason Comments Consult * Consultation (Routine) - Closed Specialty Diagnoses / Procedures Referred By Contac t Referred To Contact Neurosurgery Diagnoses Abnormal magnetic resonance imaging of cervical spine Cervicalgia Abnormal reflexes Gee Quan, PORTRAIT PHOTOGRAPHER [address] [place] [address] Phone: tel: fax: Referral ID Status Reason Start Date Expiration Date V isits Requested Visits Authorized [id number] Closed Specialty Services Required 02/25/2023 08/26/2024 1 1 Encounter Details Date Type Department Care Team (Late st Contact Info) Description 04/09/2023 12:00 PM EDT Consult [place] [facility] [address] [place] [address] Telma Smith, PORTRAIT PHOTOGRAPHER [address] [place] [address] Paresthesias (Primary Dx); Abnormal magnetic resonance imaging of cervical spine; Cervicalgia; Abnormal reflexes; Left leg weakness Social History Tobacco Use Types Packs/Day Years [...] Sign Reading Time Taken Comments Blood Pressure 140/100 04/09/2023 11:51 AM EDT Pulse - - Temperature - - Respiratory Rate - - Oxygen Saturation - - Inhaled Oxygen Concentration - - Weight 110 kg (243 lb 9.6 oz) 04/09/2023 11:51 A M EDT Height 162.6 cm (5' 4 ) 04/09/2023 11:51 AM EDT Body Mass Index 41.81 04/09/2023 11:51 AM EDT documented in this encounter Miscellaneous Notes * Progress Notes - Telma Garay APRN - 04/09/2023 12:00 PM EDT We had the pleasure of seeing your patient in our clinic today for Neurosurgical consultation. I personally reviewed approximately 35 pages of new patient referral paperwork that was sent to the clinic. Chief Complaint Patient presents with Consult History Of Present Illness Tessie Roa is a 42 y.o. female who presents to neurosurgical clinic today for consultation regarding a pain. She is been experiencing neck pain for awhile as progressively worsening. She states she was referred her by a neurologist for cervical stenosis. She reports that her entire left upper extremity left lower extremity are completely numb. She also endorses numbness in the right anterior thigh. She reports electric pain in her posterior and lateral legs that radiates to the knees bilaterally. She states she is dropping objects. Having difficulty with opening jars, but can open a soda can and buttoning shirt. She states her balance is off as she is stumbling, but she is not falling. She is had 2 months of physical therapy for her neck and shoulders without pain benefit. She is not underwent cervical or lumbar epidural steroid injections. She also reports better her bilateral legsis worse in the morning. She states her back and leg pain is worse with walking and standing. No alleviating factors identified. She is tried ice, sitting, lying down, heat, muscle relaxers. Positiveshopping cart sign. Stairs are difficult for her. Past Medical History: Diagnosis Date Anxiety Chronic [...] 3 times daily PRN aspirin 81 mg, Oral, ZZ Daily RT busPIRone (Buspar) 7.5 MG tablet Oral, Daily carvedilol (COREG) 6.25 mg, Oral escitalopram (LEXAPRO) 20 mg, Oral, Daily Euthyrox 200 mcg, Oral, Daily Flovent HFA 220 MCG/ACT inhaler 4 puffs, Inhalation, 2 times daily fluconazole (Diflucan) 150 MG tablet No dose, route, or frequency recorded. lisinopril 10 mg, Oral, ZZ Daily RT pantoprazole (PROTONIX) 40 mg, Oral, 2 times daily tiZANidine (ZANAFLEX) 4 mg, Oral, Nightly Ubrelvy [...] as noted per HPI. Visit Vitals BP (!) 140/100 (BP Location: Left arm, Patient Position: Sitting, BP Cuff Size: Adult) Ht 1.626 m (5' 4 ) Wt 110 kg (243 lb 9.6 oz) BMI 41.81 kg/m?? Smoking Status Never BSA 2.23 m?? Objective: General Physical Exam Constitutional No [...] 4/5 4-/5 C7: Triceps 4/5 4-/5 C8: Tube Roller 4/5 4-/5 T1: Intrinsics 4/5 4-/5 Lower [...] 2/4 L4: Patellar 1/4 1/4 S1: Achilles 1/4 1/4 Go's Positive Positive Clonus Negative Negative SLR Negative Negative DWIGHT Negative Negative Lhermitte's Pain shoots down spine from occiput to in between shoulder blades Imaging I personally reviewed and interpreted MRI of the brain and cervical spine obtained 02/14/2023. Brain MRI demonstrates and essentially unremarkable nonenhanced brain MRI. Cervical MRI demonstrates thefollowing stenosis: Central canal stenosis Right neural foramen [...] stenosis No significant stenosis No significant stenosis I have also personally viewed the radiology reports. Assessment and Plan Tessie Roa is a 42 y.o. female who presents to neurosurgical clinic today for consultation regarding a pain. The patient is experiencing cervical myelopathy, but her stenosis is not correlate with the symptoms. I have ordered a EMG of the bilateral upper extremities and leg for further assessment. She is also experiencing left lower extremity weakness, therefore, I have ordered a lumbar MRI. Imaging will be completed at [facility]. After the imaging is obtained, the patient will mail me the disc. Once I receive the disc, I will review the imaging, contact the patient with the updated plan of care, and addend this note. The patient is agreeable to plan of care. I educatedthe patient on red flag symptoms and when to seek immediate medical attention. The patient verbalized understanding. She should contact the clinic with any worsening of symptoms, questions, or concerns. Telma Smith APRN [facility] Department of Neurosurgery documented in this encounter Plan of Treatment Upcoming Encounters Date Type Department Care Team (Late st Contact Info) Description 12/21/2024 12:40 PM EST Office Visit [facility] Endocrinology [address], [address] [place] [address] Kajal Smith MD [address] [place] [id number] 01/25/2025 3:20 PM EST Office Visit [facility] Nephrology, Bone & Mineral Metabolism [address] [facility] [address] [facility], [address] [place] [address] David Wisnlow MD [address] [facility] [facility] [address] [place] [address] 03/25/2025 11:20 AM EDT [facility] End[facility]ology [address], [address] [place] [address] (1), Rigoberto Graves Fellow documented as of this encounter Visit Diagnoses Diagnosis Paresthesias- Primary Disturbance of skin sensation Abnormal magnetic resonance imaging of cervical spine Cervicalgia Abnormal reflexes Abnormal reflex Left leg weakness Muscle weakness (generalized) documented in this encounter Additional Health Concerns Assessment Noted Time A fall risk assessment has been complete d for the patient 04/09/2023 11:45 AM EDT A Body Mass Index follow-up plan has been documented for the patient 04/10/2023 12:25 PM EDT documented as of this encounter Care Teams Financial Compliance Examiner Relationship Specialty Start Date End Date Uyen Hines MD [address] [place] [address] PCP - General 05/31/22 documented as of this encounter
--- OUTSIDE RECORDS SUMMARY | 2024-10-19 10:54 | XMS_ITS | Encounter Summary ---
Author Organization [facility] Address [address] [place] [address] Care Team Providers Care Endoscopy Nurse Name Role Phone Uyen Hines MD Primary Care Provider [phone] Encounter Details Date Type Department Care Team (Latest Contact Info) Description 2022 Travel Social History Tobacco Use Types Packs/Day [...] suspected to have Coronavirus/COVID-19? No / Unsure 2022 12:24 PM EDT documented as of this encounter Plan of Treatment Upcoming Encounters Date Type Department Care Team (Late st Contact Info) Description 12/21/2024 12:40 PM EST [facility] [address], [address] [place] [address] Kajal Smith MD [address] [place] [address] 01/25/2025 3:20 PM EST Office Visit [facility] Nephrology, Bone & Mineral Metabolism [address], [address] [place] [address] David Winslow MD [address] [facility] [address] [place] [address] 03/25/2025 11:20 AM EDT [facility] [address] [facility], [address] [place] [address] (1), Rigoberto Graves Fellow documented as of this encounter Visit Diagnoses Not on filedocumented in this encounter Additional Health Concerns Assessment Noted Time A fall risk assessment has been complete d for the patient 05/31/2022 8:16 AM EDT documented as of this encounter Care Teams Endoscopy Nurse Relationship Specialty Start Date End Date Uyen Hines MD [address] [place] [address] PCP - General 05/31/22 documented as of this encounter
--- OUTSIDE RECORDS SUMMARY | 2024-10-19 10:54 | XMS_ITS | Encounter Summary ---
Author Organization [facility] Address [address] [place] [address] Care Team Providers Care Director Operations Name Role Phone Uyen Hines MD Primary Care Provider [phone] Reason for Visit * Reason Onset Date Comments Med Refill 09/25/2022 Encounter Details Date Type Department Care Team (Late st Contact Info) Description 09/25/2022 Refill [facility] [address] [place] [phone] Phoebe Holt MD [address] [facility] [facility] [place] [address] Social History Tobacco Use Types Packs/Day Years [...] filedocumented in this encounter Care Teams Director Operations Relationship Specialty Start Date End Date Uyen Hinse MD [address] [place] [phone] PCP - General Family Medicine 05/03/22 documented as of this encounter
--- OUTSIDE RECORDS SUMMARY | 2024-10-19 10:54 | XMS_ITS | Encounter Summary ---
Author Organization [facility] Address [address] [place] [address] Care Team Providers Care Certified Breastfeeding Educator Name Role Phone Uyen Hines MD Primary Care Provider [phone] Reason for Visit * Reason Onset Date Comments follow up appointment 01/01/2023 Encounter Details Date Type Department Care Team (Late st Contact Info) Description 01/01/2023 Telephone [facility] [address] [place] [phone] Ninoska Donaldson MA follow up appointment Social History Tobacco Use Types Packs/Day Years [...] encounter Miscellaneous Notes * Telephone Encounter - Ninoska Donaldson - 01/01/2023 3:23 PM EST LVM for pt to r/c to office to get scheduled for a f/up appt. Also replied to pts appt request via [employer] documented in this encounter Plan of Treatment Not on file documented as of this encounter Visit Diagnoses Not on filedocumented in this encounter Care Teams Certified Breastfeeding Educator Relationship Specialty Start Date End Date Uyen Hines MD [address] [place] [phone] PCP - General Family Medicine 05/03/22 documented as of this encounter
--- OUTSIDE RECORDS SUMMARY | 2024-10-19 10:54 | XMS_ITS | Clinical Summary ---
Author Organization [facility] Address [address] [place] [address] Care Team Providers Care Button Machine Operator Name Role Phone Uyen Hines MD Primary Care Provider [phone] Medications benzoyl peroxide 5 % external liquid Apply three times prior to surgery as directed. 148 g 06/01/2020 4:17 PM EDT 06/01/2020 Active traMADol (ULTRAM) 50 MG tabletIndicatio ns:Acute pain of left shoulder Take 1 tablet by mouth Every 4 (Four) Hours As Needed for Moderate Pain . 15 tablet 01/22/2021 Active Social History Tobacco Use Types Packs/Day Years Used Date Smoking Tobacco: Never Assessed Abuse Screen Answer Date Recorded Unsafe at Home or Work/School Not on file Feels Threatened by Someone? Not on file 06/2023 Does Anyone Keep You from Co ntacting Others or Doint Things Outside the Home? Not on file 08/31/2023 Physical Sign of Abuse Present Not on file 1 Housing Stability Answer Date Recorded Current Living Arrangements Not on file 06/2023 Potentially Unsafe Housing Conditions Not on maryuri e 08/31/2023 Family and Community Support Answer Alexander e Recorded Help with Day-to-Day Activities Not on file 08/31/2023 Lonely or Isolated Not on file 08/31/2023 Employment Answer Date Recorded Do you want help finding or keeping work or a leah b? Not on file 08/31/2023 Disabilities Answer Date Recorded Concentrating, Remembering, or Making Decisions Difficulty Not on file 08/31/2023 Doing Errands Independently Difficulty Not on fi le 08/31/2023 Education Answer Date Recorded Help with school or training? Not on file Preferred Language Not on file 08/31/2023 Comments Unknown Sex and Gender Information Value Date Recorded Sex Assigned at Not on file Legal Sex Female 11:43 AM EDT Gender Identity Not on file Sexual Orientation Not on file Plan of Treatment Health Maintenance Due Date Last Done Comments Annual Gynecologic Pelvic an d Breast Exam 1982 TDAP/TD VACCINES (1 - Tdap) 2001 ANNUAL PHYSICAL 06/01/2020 HEPATITIS C SCREENING 06/01/2020 PAP SMEAR 06/01/2020 MAMMOGRAM 2022 INFLUENZA VACCINE 06/24/2024 COVID-19 Vaccine (2023-2 5 season) 2024 Pneumococcal Vaccine 0-64 Aged Out No longer eligible based on patient's age to complete this topic Insurance Care Teams Button Machine Operator Relationship Specialty Start Date End Date Uyen Hines MD PCP - General Family Medicine 06/01/20
--- OUTSIDE RECORDS SUMMARY | 2024-10-19 10:54 | XMS_ITS | Encounter Summary ---
Author Organization [facility] Address [address] [place] [address] Care Team Providers Care Child Care Cook Name Role Phone Uyen Hines MD Primary Care Provider [phone] Encounter Details Date Type Department Care Team (Late st Contact Info) Description 2022 2:59 PM EDT Anesthesia Event [facility] [address] [place] [phone] Jac Moser MD [address] [place] [phone] Anesthesia Record Procedure Summary Procedure Name Responsible Anesthesiologist Anesthesia Start Time Anesthesia Stop Time EGD Jac Moser MD 07/30/22 1459 1516 Events Date Time Event Comment 2022 1355 1459 An Start 1459 In Room 1500 An Start Data 1502 An Induction The patient was reevaluated immediately before moderate or deep sedation use and before anesthesia induction. 1503 Proc Start 1503 Anesthesia Ready 1511 Proc Fin 1512 Out of Room 1513 an stop data 1514 Handoff to Receiving I compl eted my handoff to the receiving clinician during which we: 1. Identified the patient 2. Identified the responsible provider 3. Reviewed the pertinent medical history 4. Discussed the surgical course 5. Reviewed intra-op anesthesia management and issues during anesthesia 6. Set expectations for post-procedure period 7. Allowed opportunity for questions and acknowledgement of understanding. 1516 An Stop Meds Name Total propofol (Diprivan) infusion 10 mg/mL 24 0.98 mg propofol (Diprivan) injection 10 mg/mL 1 10 mg lidocaine PF (Xylocaine-MPF) 2% 100 mg lactated Ringer's infusion 250 mL * Agents No agents on file. * Blood No blood administrations on file. Lines, Drains, and Airways Type Details Placement Removal Peripheral IV Placement Date: 05/15; Placement Time: 1403; Catheter Size: 20 G; Orientation: Right; Location: Antecubital; Site Prep: Alcohol; Technique: Anatomical landmarks; Insertion Attempts: 1; Patient Tolerance: Tolerated well; Removal Date: 07/30/22; Removal Time: 15307/30/22 1403 by Robson Feliciano RN 07/30/22 1537 by Yenni Cook RN documented in this encounter Social History [...] PM EDT documented as of this encounter Miscellaneous Notes * Anesthesia Postprocedure Evaluation - Ean Allison CRNA - 2022 3:16 PM EDT Patient: Tessie Roa Anesthesia Type: general Vitals Value Taken Time BP 107/69 07/30/22 1516 Temp 98.2 07/30/22 1516 Pulse 83 07/30/22 1516 Resp 18 07/30/22 1516 SpO2 99% 07/30/22 1516 Anesthesia Post Evaluation Patient location during evaluation: PACU Patient participation: complete - patient cannot participate Level of consciousness: baseline and sedated Pain management: adequate (pain score 0-3) Airway patency: natural airway Cardiovascular status: acceptable Respiratory status: acceptable and nasal cannula Hydration status: acceptable No notable events documented. * Anesthesia Preprocedure Evaluation - Jac Moser MD - 2022 10:09 AM EDT Patient: Tessie Roa Procedure Information Date/Time: 07/30/22 1350 Scheduled providers: Eliel Raymundo MD; Jac Moser MD; Ean Allison CRNA Procedure: EGD Location: [facility] Relevant Problems No relevant active problems Anesthesia Evaluation No anesthesia staff entered. HPI Tessie Roa is a 42 y.o. female who presents EGD. ALLERGIES Allergies Allergen Reactions ??? Nsaids Other Kidney NPO STATUS AIRWAY HISTORY Past Medical History: Diagnosis Date ??? Anxiety disorder, unspecified Anxiety ??? Depression ??? GERD (gastroesophageal reflux disease) ??? Personal history of other endocrine, nutritional and metabolic disease History of thyroid disease ??? Personal history of other mental and behavioral disorders History of depression ??? Personal history of urinary calculi History of kidney stones ??? Skin cancer ??? Thyroid dysfunction MEDICATIONS Outpatient (Not in a hospital admission) Current Outpatient Medications Medication Instructions ??? ALPRAZolam (XANAX) 1 mg, Oral, 3 times daily PRN ??? escitalopram (LEXAPRO) 20 mg, Oral, Daily ??? Euthyrox 200 mcg, Oral, Daily ??? Flovent HFA 220 MCG/ACT inhaler 4 puffs, Inhalation, 2 times daily ??? omeprazole (PRILOSEC) 20 mg, Oral, Daily Scheduled PRNs SURGICAL HX: Past Surgical History: Procedure Laterality Date ??? SECTION, LOW TRANSVERSE N/A Section from [facility] ??? COLONOSCOPY ??? ESOPHAGOGASTRODUODENOSCOPY ??? GALLBLADDER SURGERY N/A Anastomosis Of Gallbladder from [facility] ??? LITHOTRIPSY N/A Lithotripsy from [facility] ??? OTHER SURGICAL HISTORY N/A Exploratory Laparoscopy from [facility] ??? TONSILLECTOMY N/A Tonsillectomy from [facility] ??? TUBAL LIGATION N/A Tubal Ligation from [facility] FUNCTIONAL CAPACITY SOCIAL HX: Social History Tobacco Use ??? Smoking status: Never ??? Smokeless tobacco: Never Vaping Use ??? Vaping Use: Never used Substance Use Topics ??? Alcohol use: Yes ??? Drug use: Never Comment: Drug use: No drug use OBJECTIVE DATA LABS Type and Screen No results found for: ABO, LABANTI COVID No results found for: SARSCOV2 Lab Results Component Value Date WBC 5.74 05/31/2022 HGB 13.6 05/31/2022 HCT 42.5 05/31/2022 MCV 89 05/31/2022 PLT 430 (H) 05/31/2022 Lab Results Component Value Date GLUCOSE 108 (H) 05/31/2022 CALCIUM 9.6 05/31/2022 NA 138 05/31/2022 K 4.1 05/31/2022 CO2 24 05/31/2022 CL 104 05/31/2022 BUN 9 05/31/2022 CREATININE 1.00 05/31/2022 Diabetic Labs Lab Results Component Value Date HGBA1C 5.10 06/01/2020 Lab Results Component Value Date HGBA1C 5.10 06/01/2020 ABG No results found for: PHART, JCP7CTI, PO2ART, SO2ART, BEART, UBX4BNQ, HCTART, SODIUMART, POTASSIUMART, POCTCL, POCGLU, IONCALART, LACTATE Lab Results Component Value Date NA 138 05/31/2022 EKG No results found for this or any previous visit (from the past 4464 hour(s)). ECHO No echocardiogram results found for the past 12 months PFTs No results found for: NCB0KWQ, TXZ7LEMA, RXI5HPU, FVCPRED NPO Status Physical Exam Airway Mallampati: II Mouth opening: normal TM distance: >3 FB Neck ROM: full Cardiovascular - normal exam Dental (+) upper dentures, lower dentures Pulmonary - normal exam Neurological Oriented: normal to time, normal to place and normal to person and oriented to person, place and time Skin Musculoskeletal Extremities Anesthesia Plan ASA 3 Anesthesia technique(s) discussed with the patient/family: General Anesthesia plan agreed upon was: general Airway management planned: nasal cannula Anesthetic plan and risks discussed with patient and spouse. Plan discussed with SAS PROGRAMMER and attending. Additional Equipment Requests documented in this encounter Plan of Treatment Upcoming Encounters Date Type Department Care Team (Late st Contact Info) Description 12/21/2024 12:40 PM EST Office Visit [facility] [address], [address] [place] [address] Kajal Smith MD [address] [place] [address] 01/25/2025 3:20 PM EST Office Visit [facility] Nephrology, Bone [facility] Mineral Metabolism [address], [address] [place] [address] David Winslow MD [address] [place] [address] 03/25/2025 11:20 AM EDT Office Visit [facility] [address], [address] [place] [address] (1), Rigoberto Graves Fellow documented as of this encounter Visit Diagnoses Not on filedocumented in this encounter Administered Medications Inactive Administered Medications - up to 3 most recent administrations Medication Order MAR Action Action Date Dose Rate Site lactated Ringer's infusion 100 mL/hr, Intravenous, Continuous, Starting on Fri07/30/22 at 1415, Until Fri07/31/22 at 0237, Routine New Bag 2022 3:02 PM EDT lidocaine PF (Xylocaine) 2 % injection Intravenous, As needed, Starting on Fri07/30/22 at 1502, Until Fri07/30/22 at 1516, Routine, Anesthesia Intraprocedure Given 2022 3:02 PM EDT 100 mg propofol (Diprivan) infusion 10 mg/mL Intravenous, Continuous PRN, Starting on Fri07/30/22 at 1502, Until Fri07/30/22 at 1516, Routine New Bag 2022 3:02 PM EDT 250 mcg/kg/min 160.65 mL/hr propofol (Diprivan) injection Intravenous, As needed, Starting on Fri07/30/22 at 1502, Until Fri07/30/22 at 1516, Routine, Anesthesia Intraprocedure Given 2022 3:07 PM EDT 30 mg Given 2022 3:02 PM EDT 80 mg documented in this encounter Additional Health Concerns Assessment Noted Time A fall risk assessment has been complete d for the patient 05/31/2022 8:16 AM EDT documented as of this encounter Care Teams Child Care Cook Relationship Specialty Start Date End Date Uyen Hines MD [address] [place] [address] PCP - General 05/31/22 documented as of this encounter
--- OUTSIDE RECORDS SUMMARY | 2024-10-19 10:54 | XMS_ITS | Encounter Summary ---
[facility] Address [address] [place] [address] Care Team Providers Care Coke Burner Name Role Phone Uyen Hines MD Primary Care Provider [phone] Reason for Referral * Diagnostic Imaging (Routine) - Closed Specialty Diagnoses / Procedures [facility]erred To Contact Diagnoses Left shoulder pain, unspecified chronicity Procedures EMG & Nerve Conduction Test Chemo Vaelnzuela Jr., MD [address] [place] [address] Phone: tel: fax: [place] [phone] Phone: tel: Referral ID Status Reason Start Date Expiration Date Visits Re quested Visits Authorized [id number] Closed 07/04/2021 08/09/2021 1 1 Reason for Visit * Diagnostic Imaging (Routine) - Closed Specialty Diagnoses / Procedures [facility] Referred To Contact Diagnoses Left shoulder pain, unspecified chronicity Procedures EMG & Nerve Conduction Test Chemo Valenzuela Jr., MD [address] [place] [address] Phone: tel: fax: [address] [address] Phone: tel: Referral ID Status Reason Start Date Expiration Date Visits Re quested Visits Authorized [id number] Closed 07/04/2021 08/09/2021 1 1 Encounter Details Date Type Department Care Team (Latest Contact Info) Description 08/08/2021 10:14 AM EDT - 08/08/2021 11:59 PM EDT Hospital Encounter [facility] [address] [place] [phone] Chemo Valenzuela Jr., MD [address] [place], [place] [id number] Left shoulder pain, unspecified chronicity Discharge Disposition: Home or Self Care Social [...] 148 g 06/01/2020 4:17 PM EDT 06/01/2020 traMADol (ULTRAM) 50 MG tabletIndications :Acute pain of left shoulder Take 1 tablet by mouth Every 4 (Four) Hours As Needed for Moderate Pain . 15 tablet 01/22/2021 documented as of this encounter Plan of Treatment Not on file documented as of this encounter Procedures Procedure Name Priority Date/Time Associated Diagnosis Comments EMG 19228 (X1) & NCS 5-6 (98082) Routine 08/08/2021 11:00 AM EDT Left shoulder pain, unspecified chronicity documented in this encounter Results * EMG 37256 (X1) & NCS 5-6 (69460) (08/08/2021 11:00 AM EDT) Impressions NEUROLOGY - 08/08/2021 12:06 PM EDT Normal NCS/EMG of the left arm and neck No electrophysiologic evidence for radiculopathy, plexopathy, or peripheral nerve entrapment is seen This report is transcribed using the [employer] dictation system. Narrative NEUROLOGY - 08/08/2021 12:06 PM EDT Indication: Left shoulder pain, left arm pain, left arm paresthesias, pectoralis minor syndrome Clinical: 41 y.o.female with a history of a shoulder injury sustained in July 2019. ??She has had 2 surgeries since that time, but has persistent symptoms. ??She describes pain in the shoulder and left side of the neck which will radiate down the back of the left arm. ??She has some associated paresthesias which will radiate down along the medial aspect of her forearm and into the ulnar aspect of her hand. ??Pectoralis minor syndrome is a consideration. ? NCS/EMG TECHNICAL DATA: All studies are performed at a skin temperature of 34??C or greater. Distal sensory latencies are calculated to waveform peak. ??Sensory amplitudes are measured peak to peak Distal motor latencies are calculated to waveform onset. ??Motor amplitudes are calculated baseline to peak Nerve Conduction Studies Anti Sensory Summary Table Stim Site NR Peak (ms) Norm Peak (ms) P-T Amp (??V) Norm P-T Amp Site1 Site2 Delta-P (ms) Dist (cm) Navjot (m/s) Norm Navjot (m/s) Left Med Ante Brach Cutan Anti Sensory (Med Forearm) Elbow ?1.8 ??28.9 ??Elbow Med Forearm 1.8 0.0 ?1.8 ??31.2 ? Ortho Sensory Summary Table Stim Site NR Peak (ms) Norm Peak (ms) P-T Amp (??V) Norm P-T Amp Site1 Site2 Delta-P (ms) Dist (cm) Navjot (m/s) Norm Navjot (m/s) Left Median Ortho Sensory (Wrist) 2nd Digit ?1.8 ??57.7 ??2nd Digit Wrist 1.8 8.0 44 ?? Palm ?1.8 ??51.1 ??Palm Wrist 1.8 0.0 ?? Left Ulnar Ortho Sensory (Wrist) 5th Digit ?1.5 ??25.3 ??5th Digit Wrist 1.5 8.0 53 ?? Palm ?1.5 ??26.5 ??Palm Wrist 1.5 0.0 ?? Motor Summary Table Stim Site NR Onset (ms) Norm Onset (ms) O-P Amp (mV) Norm O-P Amp Site1 Site2 Delta-0 (ms) Dist (cm) Navjot (m/s) Norm Nvajot (m/s) Left Median Motor (Abd Poll Brev) Wrist ?3.4 <4.2 8.9 >5 Elbow Wrist 3.0 19.5 65 >50 Elbow ?6.4 ??8.9 ? Left Ulnar Motor (Abd Dig Minimi) Wrist ?2.8 <4.2 9.8 >3 B Elbow Wrist 3.2 20.5 64 >53 B Elbow ?6.0 ??13.5 ??A Elbow B Elbow 1.7 10.0 59 >53 A Elbow ?7.7 ??12.8 ? F Wave Studies NR F-Lat (ms) Lat Norm (ms) L-R F-Lat (ms) L-R Lat Norm Left Median (Mrkrs) (Abd Poll Brev) ?? 24.06 <33 ??<2.2 Left Ulnar (Mrkrs) (Abd Dig Min) ?? 24.68 <36 ??<2.5 EMG Side Muscle Nerve Root Ins Act Fibs Psw Amp Dur Poly Recrt Int Pat Comment Left Deltoid Axillary C5-6 Nml Nml Nml Nml Nml 0 Nml Nml ?? Left Abd Poll Brev Median C8-T1 Nml Nml Nml Nml Nml 0 Nml Nml ?? Left 1stDorInt Ulnar C8-T1 Nml Nml Nml Nml Nml 0 Nml Nml ?? Left Ext Digitorum Radial (Post Int) C7-8 Nml Nml Nml Nml Nml 0 Nml Nml ?? Left Biceps Musculocut C5-6 Nml Nml Nml Nml Nml 0 Nml Nml ?? Left Triceps Radial C6-7-8 Nml Nml Nml Nml Nml 0 Nml Nml ?? Left Rhomboid Major DorsalScap C5 Nml Nml Nml Nml Nml 0 Nml Nml ?? Left Supraspinatus SupraScap C5-6 Nml Nml Nml Nml Nml 0 Nml Nml ?? Left Infraspinatus SupraScap C5-6 Nml Nml Nml Nml Nml 0 Nml Nml ?? Left C5 Parasp Rami C5 Nml Nml Nml Nml Nml 0 Nml Nml ?? Left C6 Parasp Rami C6 Nml Nml Nml Nml Nml 0 Nml Nml ?? Left C7 Parasp Rami C7 Nml Nml Nml Nml Nml 0 Nml Nml ?? Left PronatorTeres Median C6-7 Nml Nml Nml Nml Nml 0 Nml Nml ?? Left BrachioRad Radial C5-6 Nml Nml Nml Nml Nml 0 Nml Nml ?? Left Ext Indicis Radial (Post Int) C7-8 Nml Nml Nml Nml Nml 0 Nml Nml ?? Left Pect Major Pectoral C5-6 Nml Nml Nml Nml Nml 0 Nml Nml ?? Left Pect Minor Pectoral C6-8 Nml Nml Nml Nml Nml 0 Nml Nml ?? Left ABD Dig Min Ulnar C8-T1 Nml Nml Nml Nml Nml 0 Nml Nml ?? Waveforms: ? FINDINGS: Nerve Conduction Studies: Median sensory latency on the left is normal in amplitude is robust Ulnar sensory latency on the left is normal and amplitude is robust Study of the left medial antebrachial cutaneous sensory nerve is normal and amplitude is similarly good Study of the left median motor nerve is normal Study of the left ulnar motor nerve is normal Motor F wave latencies of the left median and left ulnar motor nerves are normal Electromyogram: Needle examination of multiple muscles of the left arm, shoulder, and cervical paraspinous muscles are normal us Chemo Valenzuela Jr., MD NEUROLOGY ORDERABLES Fi nal Result NEUROLOGY documented in this encounter Visit Diagnoses Diagnosis Left shoulder pain, unspecified chronicity documented in this encounter Care Teams Coke Burner Relationship Specialty Start Date End Date Uyen Hines MD PCP - General Family Medicine 06/01/20 documented as of this encounter
--- OUTSIDE RECORDS SUMMARY | 2024-10-19 10:54 | XMS_ITS | Encounter Summary ---
Author Organization [facility] Address [address] [place] [address] Care Team Providers Care Stretch Machine Operator Name Role Phone Uyen Hines MD Primary Care Provider [phone] Reason for Referral * Consultation (Routine) - Closed Specialty Diagnoses / Procedures Referred By Christopher t Referred To Contact Gastroenterology Diagnoses Eosinophilic esophagitis Diarrhea Other dysphagia Procedures Clinic Appointment Request Phoebe Holt MD [address] [place] [address], [address] [place] [phone] Phone: tel: fax: [facility] [address] [address] Phone: tel: fax: Referral ID Status Reason Start Date Expiration Date Visits Re quested Visits Authorized [id number] Closed 09/06/2022 03/05/2023 1 1 Reason for Visit * Reason Comments Dysphagia * Consultation (Routine) - Pending Review Specialty Diagnoses / Procedures Referred By Conthunter t Referred To Contact Gastroenterology Diagnoses Eosinophilic esophagitis Dysphagia Procedures CONSULTATION WITH A MEDICAL HEALTH BEAR KEEPER Josefina Ziegler PA [address] [address] [place] [phone] Phone: tel: fax: Devon Cook MD [address] [place] [address], [address] [place] [address] Phone: tel: fax: Referral ID Status Reason Start Date Expiration Date V isits Requested Visits Authorized [id number] Pending Review 05/03/2022 10/30/2022 1 1 Encounter Details Date Type Department Care Team (Late st Contact Info) Description 08/07/2022 11:00 AM EDT Telemedicine [facility] [address] [address] Phoebe Holt MD [address] [place] [address], [address] [place] [address] Eosinophilic esophagitis (Primary Dx); Diarrhea; Other dysphagia Social History Tobacco Use Types Packs/Day [...] as of this encounter Progress Notes * Phoebe Holt MD - 08/07/2022 11:00 AM EDT [facility] CLINIC NOTE Patient: Tessie Roa Age: 42 y.o. Sex: female : 1980 Visit Date: 08/07/2022 Visit Type: Consult - Requesting Josefina Ziegler Chief Complaint Patient presents with ??? Dysphagia History of Present Illness HPI: Pt is a 42 yo F with chronic dysphagia who at times will have to force regurgitation to dislodge food - initially underwent EGD with dilation in 2011 and did well until recently - diagnosed withEoE 04/2022 and dilated at that time - repeat EGD 07/2022 without stricture therefore not dilated. She is currently using omeprazole once daily (has been on for several years) and Flovent BID. She has done this regimen for at least a year without improvement. She describes both solid and liquid dysphagia. She has undergone HREM which was unremarkable. She denies symptoms of reflux. She has tried anelimination diet without change in dysphagia or identification of triggers. She has normal to loosebowel movements at baseline. Symptom Scores (Patient-Reported): Upper Symptoms 09/01/2022 Vomiting 0 Nausea 0 Anorexia/Early Satiety 0 Abdominal Pain 0 Middle GI Symptoms 09/01/2022 GERD 0 Dysphagia 4 Lower GI Symptoms 09/01/2022 Diarrhea 1 Constipation 0 Frequent Urination 0 Infrequent Urination 0 Total LGI Score 1 Fill-Out (then right click table and refresh) Previous GI Surgeries/Procedures: None Onset of Symptoms: Gradual Overlaps Include: None Weight Change: Stable Tolerate Regular Food: Yes Nutritional Support: None Upper Medications Tried: Phenergan: Has not tried Zofran: Has not tried Scopolamine: Has not tried Reglan: Has not tried Domperidone: Has not tried Emend: Has not tried Other: Lower Medications Tried: Stool Softeners: Has not tried Miralax: Has not tried Amitiza: Has not tried Linzess: Has not tried Trulance: Has not tried Motegrity: Has not tried Other: Past Medical, Social and Family History Active Ambulatory Problems Diagnosis Date Noted ??? Other dysphagia 07/17/2022 ??? Eosinophilic esophagitis 07/17/2022 ??? Diarrhea 07/17/2022 Resolved Ambulatory Problems Diagnosis Date Noted ??? No Resolved Ambulatory Problems Past Medical History: Diagnosis Date ??? Anxiety Past Surgical History: Procedure Laterality Date ??? SECTION, CLASSIC ??? CHOLECYSTECTOMY ??? EXPLORATORY LAPAROTOMY ??? SALPINGOOPHORECTOMY ??? TUBAL LIGATION No current outpatient medications Not on File Social History Tobacco Use ??? Smoking status: Never Smoker ??? Smokeless tobacco: Never Used Substance Use Topics ??? Alcohol use: Yes Comment: Occasional ??? Drug use: Never Family History Problem Relation Name Age of Onset ??? Colon cancer Other ??? Breast cancer Other Review of Systems Review of Systems Constitutional: Negative. HENT: Negative. Eyes: Negative. Respiratory: Negative. Cardiovascular: Negative. Gastrointestinal: Positive for diarrhea. Endocrine: Negative. Genitourinary: Negative. Musculoskeletal: Negative. Skin: Negative. Allergic/Immunologic: Negative. Neurological: Negative. Hematological: Negative. Psychiatric/Behavioral: Negative. Vitals There were no vitals filed for this visit. Physical Exam Physical Exam Constitutional: Appearance: Normal appearance. HENT: Head: Normocephalic and atraumatic. Nose: Nose normal. Mouth/Throat: Mouth: Mucous membranes are moist. Pharynx: Oropharynx is clear. Eyes: Extraocular Movements: Extraocular movements intact. Conjunctiva/sclera: Conjunctivae normal. Pupils: Pupils are equal, round, and reactive to light. Pulmonary: Effort: Pulmonary effort is normal. Musculoskeletal: General: Normal range of motion. Cervical back: Normal range of motion. Neurological: General: No focal deficit present. Mental Status: She is alert and oriented to person, place, and time. Psychiatric: Mood and Affect: Mood normal. Behavior: Behavior normal. Judgment: Judgment normal. Data 07/2022 - EGD - no stricture; EoE 05/2022 - CBC and CMP unremarkable 04/2022 - EGD - EoE; mild esophageal stenosis 04/2022 - Cscope - internal hemorrhoids 07/2021 - EMG - normal 06/2021 - HREM - normal Motility Scores PG-SGA Fill-Out (then right-click and refresh to see score below) QOL IDIOMS Fill-Out (then right-click and refresh to see score below) PG-SGA SCORES 09/01/2022 Weight Stage A Nutrient Intake Stage A Nutrient Impact Stage A Functioning Stage A Physical Exam Stage A Total Stage A QOL IDIOMS 09/01/2022 Organ Systems 0 Severity of Illness 5 Intensity of Service 4 Total Score 9 Impression 1. Eosinophilic esophagitis 2. Diarrhea 3. Other dysphagia Plan 1.Dysphagia - EoE - has been on omeprazole once daily for several years - discussed transition to BID ppi and assess response -Protonix BID -Continue Flovent - if persistent symptoms despite change in PPI and dose increase will give budesonide Orders Placed This Encounter ??? Clinic Appointment Request Standing Status: Future Standing Expiration Date: 08/07/2023 ??? pantoprazole (ProtoNix) 40 MG EC tablet Sig: Take 1 tablet (40 mg total) by mouth 2 (two) times a day. Do not crush, chew, or split. Dispense: 60 tablet Refill: 11 ??? Flovent HFA 220 MCG/ACT inhaler Sig: Inhale 2 puffs 2 (two) times a day. For EoE - puff and swallow Dispense: 12 g Refill: 0 Follow up in about 1 month (around 09/06/2022). Complexity/Risk Attestation: MDM: Moderate complexity Telemedicine Attestation: Tessie Roa was located at a private location and I was located at my clinic/office for this telemedicine encounter. We utilized Zoom for the encounter and Tessie Roa and I were able to see and hear each other simultaneously in real time. At the start of the visit, I introduced myself and verified Tessie Roa's identity. I explained how the telemedicine visit will occur. I advisedTessie Roa that technology-related delays and breaches of privacy are potential risks associated with conducting the encounter via telemedicine. I also advised Tessie Roa that at any point he/she may terminate the telemedicine encounter and withdraw his/her consent for receiving care via telemedicine without affecting his/her ability to receive future care from us, and that I may alsoterminate the telemedicine encounter if I determine that an in-person visit is more appropriate forthe condition[s] for which treatment is sought. Having covered these considerations, Tessie Roa verbally acknowledged them and gave consent for the use of telemedicine in his/her care. Phoebe Holt MD [facility] 08/07/2022 Late Signature Attestation: I Phoebe Holt MD hereby attest that the medical record entry for the date of service (08/07/2022), accurately reflects signatures/notations that I made as capacity as the provider when I treated/diagnosed the above listed patient. I do hereby attest that this information is true, accurate and complete to the best of my knowledge and I understand that any falsification, omission, or concealment of material fact may subject me to administrative, civil or criminal liability. Addendum provided by Phoebe Holt MD on 09/01/2022. documented in this encounter Plan of Treatment Not on file documented as of this encounter Visit Diagnoses Diagnosis Eosinophilic esophagitis- Primary Diarrhea Other dysphagia documented in this encounter Care Teams Stretch Machine Operator Relationship Specialty Start Date End Date Uyen Hines MD [address] [place] [address] PCP - General Family Medicine 05/03/22 documented as of this encounter
--- OUTSIDE RECORDS SUMMARY | 2024-10-19 10:54 | XMS_ITS | Encounter Summary ---
Author Organization [facility] Address [address] [id number] Care Team Providers Care Iron Plastic Bullet Maker Name Role Phone Uyen Hines MD Primary Care Provider [phone] Reason for Visit * Reason Comments Eosinophilic Esophagitis * Consultation (Routine) - Closed Specialty Diagnoses / Procedures Referred By Contac t Referred To Contact Gastroenterology Diagnoses Eosinophilic esophagitis Indio Mendosa MD [address] [address] Phone: tel: fax: Indio Mendosa MD [address] [address] Phone: tel: fax: Referral ID Status Reason Start Date Expiration Date V isits Requested Visits Authorized [id number] Closed Specialty Services Required 05/05/2022 11/04/2023 1 1 Encounter Details Date Type Department Care Team (Late st Contact Info) Description 05/31/2022 8:00 AM EDT Consult ID Clinic Medicine Specialties [address] [place] [address] Indio Mendosa MD [address] [address] Eosinophilic esophagitis (Primary Dx) Social History Tobacco Use Types [...] suspected to have Coronavirus/COVID-19? No / Unsure 05/31/2022 7:59 AM EDT documented as of this encounter Last Filed Vital Signs Vital Sign Reading Time Taken Comments Blood Pressure 133/90 05/31/2022 8:06 AM EDT Pulse 84 05/31/2022 8:06 AM EDT Temperature 36.7 ??C (98 ??F) 05/31/2022 8:06 AM EDT Respiratory Rate - - Oxygen Saturation 96% 05/31/2022 8:06 AM EDT Inhaled Oxygen Concentration - - Weight 106 kg (234 lb 5.6 oz) 05/31/2022 8:06 AM EDT Height 162.6 cm (5' 4 ) 05/31/2022 8:06 AM EDT Body Mass Index 40.23 05/31/2022 8:06 AM EDT documented in this encounter Miscellaneous Notes * Progress Notes - Binh Vega, - 05/31/2022 8:00 AM EDT Tessie Roa [id number] 1980 Reason for Visit: Chief Complaint Patient presents with ??? Eosinophilic Esophagitis History of Present Illness: I had the pleasure to see today at our Gastroenterology Clinic Ms. Roa. Patient is a 41 y.o. year old female who is referred for dysphagia. She has a PMHx of anxiety, depression, hypothyroidism, GERD, and eosinophilic esophagitis. Patient presents with dysphagia and globus sensation, present since 2011 but worsening over the past few months. Patient has had multiple EGD's in the past, first in 2011, with her last two EGD's requiring dilation. Patient recently started having odynophagia and increased difficulty swallowing, only to solid foods, occasionally resulting in the patient having to vomit her food as it feels stuck . Patient saw her established [facility] GI physican for this problem and performed an EGD. However, during the EGD, the physician noticed a mass with a ring around it at the base of the esophagus. A biopsy was attempted, however the mass was friable and started to bleed. Biopsy attempt was subsequently aborted. Patient is uncertain if she has had esophageal biopsies in the past. Patient was referred to for further work up of esophageal mass. Patient was started on swallowed aerosolized steroids and PPI for eosinophilic esophagitis without improvement of symptoms. Of note, patient states she was recently hospitalized for a bowel obstruction of unspecified location. A colonoscopy was performed with removal of a small tumor . Patient is uncertain of pathology/cytology or other results of colonoscopy. Patient is a never smoker and denies any alcohol/drug use. Patient positive for dysphagia, odynophagia, nausea, vomiting, alternating diarrhea/constipatoin, and heartburn/reflux. Patient denies any early satiety, abdominal pain, abdominal distension/bloating, hematochezia, or melena. Appetite is mildly decreased but weight is stable; no unintentional weight loss. Patient does not have intolerance to PPI, including abdominal cramps, diarrhea, muscle ache), history of PPI-related adverse effects (hypomagnesemia, C. Difficile colitis, small intestinal bacterial overgrowth or SIBO, or spontaneous bacterial peritonitis (SBP). She does have family history of cancer (in particular, family history of colon (grandmother) and breast cancer (paternal aunt). Past Medical History: Diagnosis Date ??? Anxiety disorder, unspecified Anxiety ??? Depression ??? GERD (gastroesophageal reflux disease) ??? Personal history of other endocrine, nutritional and metabolic disease History of thyroid disease ??? Personal history of other mental and behavioral disorders History of depression ??? Personal history of urinary calculi History of kidney stones ??? Skin cancer ??? Thyroid dysfunction There are no problems to display for this patient. Past Surgical History: Procedure Laterality Date ??? SECTION, LOW TRANSVERSE N/A Section from [facility] ??? COLONOSCOPY ??? ESOPHAGOGASTRODUODENOSCOPY ??? GALLBLADDER SURGERY N/A Anastomosis Of Gallbladder from [facility] ??? LITHOTRIPSY N/A Lithotripsy from [facility] ??? OTHER SURGICAL HISTORY N/A Exploratory Laparoscopy from [facility] ??? TONSILLECTOMY N/A Tonsillectomy from [facility] ??? TUBAL LIGATION N/A Tubal Ligation from [facility] Family History Problem Relation Name Age of Onset ??? Colon cancer Other ??? Breast cancer Other ??? Ovarian cancer Other ??? Ovarian cancer Other Allergies Allergen Reactions ??? Nsaids Other Kidney Outpatient Encounter Medications as of 05/31/2022 Medication Sig Dispense Refill ??? ALPRAZolam (Xanax) 1 MG tablet Take 1 mg by mouth 3 (three) times a day if needed. ??? escitalopram (Lexapro) 20 MG tablet Take 20 mg by mouth 1 (one) time each day. ??? Euthyrox 200 MCG tablet Take 200 mcg by mouth 1 (one) time each day. ??? Flovent HFA 220 MCG/ACT inhaler Inhale 4 puffs 2 (two) times a day. ??? omeprazole (PriLOSEC) [address] capsule Take 20 mg by mouth 1 (one) time each day. No facility-administered encounter medications on file as of 05/31/2022. REVIEW OF SYSTEMS: Bold indicates a positive response (if not bold, then negative) Constitutional: fatigue; fever; chills; night sweats HEENT: eye trouble; hearing disorder; snoring; sore mouth or tongue; headaches; dry eyes; dry mouth Cardiovascular: chest pain; palpitations; leg swelling; calf pain with walking Respiratory: shortness of breath; asthma; cough; wheezing GI/Liver: abdominal pain, bloating, jaundice, nausea, vomiting : difficulty urinating; urgency; frequency; pain; incontinence; blood in urine; dark urine Musculoskeletal: polyarthralgia; muscle pain; chronic low back pain ranging 1/10 - 5/10 Skin: rashes; dry skin; pruritus Neurologic: headache; memory loss; tremor; seizures; left ankle weakness or numbness; paresthesias Psych: depression; anxiety; insomnia; substance abuse; alcoholism Endocrine: neck goiter; heat intolerance; cold intolerance; alopecia; thrombocytosis Hematologic/Lymphatic: easy bruising; blood clots; transfusions; enlarged lymph nodes Objective Findings: Physical Exam: General Appearance: Alert, cooperative, no distress, appears stated age Head: Normocephalic, without obvious abnormality, atraumatic Eyes: PERRL, anicteric, conjunctiva/corneas clear, EOM's intact, both eyes Nose: Nares normal, no drainage or sinus tenderness Throat: Lips, mucosa, and tongue normal; teeth and gums normal Neck: Supple, symmetrical, trachea midline, no adenopathy Back: Symmetric, ROM normal, no CVA tenderness Lungs: Clear to auscultation bilaterally, respirations unlabored Abdomen: Soft, non-tender, bowel sounds active all four quadrants, no masses, no organomegaly Extremities: Extremities normal, atraumatic, no cyanosis or edema Skin: Skin color, texture, turgor normal, no rashes or lesions Lymph nodes: Cervical, supraclavicular nodes normal Neurologic: Alert and oriented x 3, normal strength Objective: Vitals: 05/31/22 0806 BP: 133/90 Pulse: 84 Temp: 36.7 ??C (98 ??F) SpO2: 96% Assessment: #Esophageal mass #Eosinophilic esophagitis Plan: - Will perform EGD with biopsy for possible esophageal mass. - Request patient send recent colonoscopy/pathology results to clinic to evaluate etiology of recent bowel obstruction. The plan was explained to the patient. Adverse events and alternatives of the proposed management plan were discussed. The patient asked many excellent questions which were answered satisfactorily. The patient agrees with the plan. I spent over >60 minutes on this encounter; including preparing to see the patient, which involved review/interpretation of diagnostics and reports; obtaining and/or reviewing separately obtained history; performing appropriate physical exam; ordering/scheduling medications, tests or procedures; communicating findings, discussing diagnosis, prognosis, and treatment plans and counseling/educating the patient, family and/or caregiver; documentation in EMR; and care coordination. Binh Vega DO PGY-2, Internal Medicine Cosigned by Indio Mendosa MD at 06/01/2022 10:35 AM EDT Associated attestation - Indio Mendosa MD - 06/01/2022 10:35 AM EDT I saw and evaluated the patient with the resident/fellow. I discussed the case with the resident/fellow and agree with the findings and plan as documented. documented in this encounter Plan of Treatment Upcoming Encounters Date Type Department Care Team (Late st Contact Info) Description 12/21/2024 12:40 PM EST Office Visit [facility] Endocrinology [address], [address] [place] [id number] Kajal Smith MD [address] [place] [address] 01/25/2025 3:20 PM EST Office Visit [facility] Nephrology, Bone & Mineral Metabolism [address], [address] [place] [address] David Winslow MD [address] [place] [address] 03/25/2025 11:20 AM EDT Office Visit [facility] Endocrinology [address], [address] [place] [address] (1), Rigoberto Graves Fellow documented as of this encounter Results * Protime-INR (05/31/2022 9:16 AM EDT) Prothrombin Time 12.7 12.0 - 14.3 sec LAB COAGULATION METHOD 05/31/2022 10:43 AM EDT [facility] INR 0.9 0.9 - 1.1 LAB COAGULATION METHOD 05/31/2022 10:43 AM EDT [facility] Blood Venous blood specimen / Unknown Venipuncture / Unknown 05/31/2022 9:16 AM EDT 05/31/2022 9:16 AM EDT Narrative [facility] - 05/31/2022 10:43 AM EDT OPTIMAL INR RANGES FOR PATIENT ON ORAL ANTICOAGULANT THERAPY Prevention of venous thromboembolism ?INR 2.0 to 3.0 In patients with heart disease: Atrial fibrillation ?INR 2.0 to 3.0 Valvular heart disease ? INR 2.0 to 3.0 Tissue heart valves ?INR 2.0 to 3.0 Mechanical prosthetic valves ? INR 2.5 to 3.[address] ? INR 2.5 to 3.5 us Indio Mendosa MD LAB BLOOD ORDERABLES Final Resul t [facility] [address] [place] [address] * (ABNORMAL) Comprehensive metabolic panel (05/31/2022 9:16 AM EDT) [facility] Glucose, Plasma 108(H) 74 - 99 mg/dL 05/31/2022 11:03 AM EDT [facility] BUN, Plasma 9 7 - 21 mg/dL 05/31/2022 11:03 AM EDT [facility] Creatinine, Plasma 1.00 0.60 - 1.10 mg/dL 05/31/2022 11:03 AM EDT [facility] BUN/Creatinine Ratio 9 05/31/2022 11:03 AM EDT [facility] Sodium, Plasma 138 136 - 145 mmol/L 05/31/2022 11:03 AM EDT [facility] Potassium, Plasma 4.1 3.7 - 4.8 mmol/L 05/31/2022 11:03 AM EDT [facility] Comment:Reference range for Serum potassium is 0.2 to 0.5 mmol/L higher than Plasma range. Chloride, Plasma 104 97 - 107 mmol/L 05/31/2022 11:03 AM EDT [facility] CO2, Plasma 24 22 - 29 mmol/L 05/31/2022 11:03 AM EDT [facility] Anion Gap 10 6 - 16 mmol/L 05/31/2022 11:03 AM EDT [facility] Total Calcium, Plasma 9.6 8.9 - 10.2 mg/dL 05/31/2022 11:03 AM EDT [facility] Total Protein 7.4 6.3 - 7.9 g/dL 05/31/2022 11:03 AM EDT [facility] Albumin, Plasma 4.2 3.5 - 5.2 g/dL 05/31/2022 11:03 AM EDT [facility] AST, Plasma 21 11 - 32 U/L 05/31/2022 11:03 AM EDT [facility] ALT, Plasma 21 8 - 33 U/L 05/31/2022 11:03 AM EDT [facility] Alkaline Phosphatase, Plasma 62 35 - 104 U/L 05/31/2022 11:03 AM EDT [facility] Total Bilirubin, Plasma 0.6 0.2 - 1.1 mg/dL 05/31/2022 11:03 AM EDT [facility] eGFR >60 >60 mL/min/1.7 3m*2 05/31/2022 11:03 AM EDT [facility] Comment:eGFR = estimated GFR ; eGFR units = mL/min/1.73 sq meters Chronic Kidney Disease is considered if eGFR <60 mL/min/1.73 sq meters Kidney failure is considered if eGFR is <15 mL/min/1.73 sq meters. eGFR assumes steady state plasma creatinine concentration; not applicable if renal function is rapidly changing or patient is on dialysis. eGFR, if AFR/AM >60 >60 mL/min/1.7 3m*2 05/31/2022 11:03 AM EDT [facility] Comment:eGFR = estimated GFR ; eGFR units = mL/min/1.73 sq meters Chronic Kidney Disease is considered if eGFR <60 mL/min/1.73 sq meters Kidney failure is considered if eGFR is <15 mL/min/1.73 sq meters. eGFR assumes steady state plasma creatinine concentration; not applicable if renal function is rapidly changing or patient is on dialysis. Blood Venous blood specimen / Unknown Venipuncture / Unknown 05/31/2022 9:16 AM EDT 05/31/2022 9:16 AM EDT us Indio Mendosa MD LAB BLOOD ORDERABLES Final Resul t Performing Organization Address City/[facility]/ZIP Co de Phone Number [facility] [address] [place] [address] * (ABNORMAL) CBC (05/31/2022 9:16 AM EDT) WBC Count 5.74 3.70 - 10.30 10*3/uL LAB HEMATOLOGY METHOD 05/31/2022 10:14 AM EDT [facility] RBC Count 4.78 3.90 - 5.20 10*6/uL LAB HEMATOLOGY METHOD 05/31/2022 10:14 AM EDT [facility] HGB 13.6 11.2 - 15.7 g/dL LAB HEMATOLOGY METHOD 05/31/2022 10:14 AM EDT [facility] HCT 42.5 34.0 - 45.0 % LAB HEMATOLOGY METHOD 05/31/2022 10:14 AM EDT [facility] Platelet Count 430(H) 155 - 369 10*3/uL LAB HEMATOLOGY METHOD 05/31/2022 10:14 AM EDT [facility] MCV 89 79 - 98 fL LAB HEMATOLOGY METHOD 05/31/2022 10:14 AM EDT [facility] MCH 28.5 26.0 - 32.0 pg LAB HEMATOLOGY METHOD 05/31/2022 10:14 AM EDT [facility] MCHC 32.0 30.7 - 35.5 g/dL LAB HEMATOLOGY METHOD 05/31/2022 10:14 AM EDT [facility] RDW 13.4 11.5 - 14.5 % LAB HEMATOLOGY METHOD 05/31/2022 10:14 AM EDT [facility] MPV 9.0 8.8 - 12.5 fL LAB HEMATOLOGY METHOD 05/31/2022 10:14 AM EDT [facility] nRBC 0.0 <=0.0 per 100 WBCs LAB HEMATOLOGY METHOD 05/31/2022 10:14 AM EDT [facility] Blood Venous blood specimen / Unknown Venipuncture / Unknown 05/31/2022 9:16 AM EDT 05/31/2022 9:16 AM EDT us Indio Mendosa MD LAB BLOOD ORDERABLES Final Resul t [facility] [address] [place] [address] documented in this encounter Visit Diagnoses Diagnosis Eosinophilic esophagitis- Primary documented in this encounter Additional Health Concerns Assessment Noted Time A fall risk assessment has been complete d for the patient 05/31/2022 8:16 AM EDT documented as of this encounter Care Teams Iron Plastic Bullet Maker Relationship Specialty Start Date End Date Uyen Hines MD [address] [place] [address] PCP - General 05/31/22 documented as of this encounter
--- OUTSIDE RECORDS SUMMARY | 2024-10-19 10:54 | XMS_ITS | Encounter Summary ---
Author Organization [facility] Address [address] [place] [address] Care Team Providers Care Geodetic Computator Name Role Phone Uyen Hines MD Primary Care Provider [phone] Reason for Referral * Imaging (Routine) - Closed Specialty Diagnoses / Procedures Referred By Christopher yuan Referred To Contact Gastroenterology Diagnoses Eosinophilic esophagitis Mucosal abnormality of esophagus Procedures EGD w Dilation Christopher Mcghee MD [address] [place] [address] Phone: tel: fax: Referral ID Status Reason Start Date Expiration Date V isits Requested Visits Authorized [id number] Closed Specialty Services Required 05/16/2022 11/15/2023 1 1 Reason for Visit * Imaging (Routine) - Closed Specialty Diagnoses / Procedures Referred By Christopher yuan Referred To Contact Gastroenterology Diagnoses Eosinophilic esophagitis Mucosal abnormality of esophagus Procedures EGD w Dilation Christopher Mcghee MD [address] [place] [address] Phone: tel: fax: Referral ID Status Reason Start Date Expiration Date V isits Requested Visits Authorized [id number] Closed Specialty Services Required 05/16/2022 11/15/2023 1 1 Encounter Details Date Type Department Care Team (Late st Contact Info) Description 2022 12:35 PM EDT - 2022 11:59 PM EDT Hospital Encounter [facility] [address] [place] [address] Eliel Raymundo MD [address] [place] [address] Jac Moser MD [address] [place] [address] Ean Allison CRNA [address] [place] [address] Eosinophilic esophagitis; Mucosal abnormality of esophagus Discharge Disposition: Home or Self Care Social History Tobacco Use Types Packs/Day Years Used Date Smoking Tobacco: Never Smokeless Tobacco: Never Tobacco Cessation:Counseling Given: Not Answered Alcohol Use Standard Drinks/Week Comments Yes 0 [...] PM EDT documented as of this encounter Last Filed Vital Signs Vital Sign Reading Time Taken Comments Blood Pressure 129/83 2022 3:45 PM EDT Pulse 69 2022 3:45 PM EDT Temperature 36.8 ??C (98.2 ??F) 2022 3:15 PM ED T Respiratory Rate 18 2022 3:45 PM EDT Oxygen Saturation 100% 2022 3:45 PM EDT Inhaled Oxygen Concentration - - Weight 107 kg (236 lb 1.8 oz) 2022 1:39 PM EDT Height 162.6 cm (5' 4 ) 2022 1:39 PM EDT Body Mass Index 40.53 2022 1:39 PM EDT documented in this encounter Discharge Instructions * Attachments The following attachments cannot be sent through Care Everywhere. * Colonoscopy, Gastroscopy, or ERCP Discharge Instructions - Endoscopy Unit () ([facility]iberian) * Sedation, Procedural (Adult) ([facility]ian) documented in this encounter Medications at Time of Discharge ALPRAZolam (Xanax) 1 MG tablet Take 1 tablet (1 mg) by mouth 3 (three) times a day if needed. 03/27/2022 escitalopram (Lexapro) 20 MG tablet Take 1 tablet (20 mg) by mouth 1 (one) time each day. 03/27/2022 busPIRone (Buspar) 7.5 MG tablet Take by mouth 1 (one) time each day. 09/01/2023 cyclobenzaprine (Flexeril) 10 MG tablet Take 10 mg by mouth 3 (three) times a day if needed for muscle spasms. 04/09/2023 Euthyrox 200 MCG tablet Take 1 tablet (200 mcg) by mouth 1 (one) time each day. 04/23/2022 03/08/2024 Euthyrox 50 MCG tablet Take 50 mcg by mouth 1 (one) time each day. 05/20/2022 04/09/2023 Flovent HFA 220 MCG/ACT inhaler Inhale 4 puffs 2 (two) times a day. 12/03/2021 09/01/2023 gabapentin (Neurontin) 100 MG capsule Take 100 mg by mouth 3 (three) times a day. 04/09/2023 levothyroxine (Synthroid, Levoxyl) 200 MCG tablet Take 200 mcg by mouth 1 (one) time each day before breakfast. 04/09/2023 omeprazole (PriLOSEC) [address] capsule Take 20 mg by mouth 1 (one) time each day. 01/10/2022 04/09/2023 documented as of this encounter Miscellaneous Notes * H&P - Eliel Raymundo MD - 2022 1:50 PM EDT Gastroenterology, Hepatology and Nutrition Pre-Endoscopy History & Physical Patient: Tessie Roa Date of : 1980 Attending: No att. providers found Date of Visit: 2022 Chief Complaint/Reason for Visit: Dysphagia Hx of EoE Suspected esophageal mass (based on outside EGD report) @SUBJBEGIN@ History of Present Illness: Ms. Tessie Roa is a 42 y.o. female here today for EGD. Allergies Allergen Reactions Nsaids Other Kidney Anticoagulation and antiplatelet medications: none Last dose: not applicable Current Outpatient Medications Medication Instructions ALPRAZolam (XANAX) 1 mg, Oral, 3 times daily PRN busPIRone (Buspar) 7.5 MG tablet Oral, Daily cyclobenzaprine (FLEXERIL) 10 mg, Oral, 3 times daily PRN escitalopram (LEXAPRO) 20 mg, Oral, Daily Euthyrox 200 mcg, Oral, Daily Flovent HFA 220 MCG/ACT inhaler 4 puffs, Inhalation, 2 times daily gabapentin (NEURONTIN) 100 mg, Oral, 3 times daily levothyroxine (SYNTHROID, LEVOXYL) 200 mcg, Oral, Daily before breakfast omeprazole (PRILOSEC) 20 mg, Oral, Daily Past Medical History: Diagnosis Date Anxiety disorder, unspecified Anxiety Chronic kidney failure Depression Esophagitis GERD (gastroesophageal reflux disease) Osteopenia Personal history of other endocrine, nutritional and metabolic disease History of thyroid disease Personal history of other mental and behavioral disorders History of depression Personal history of urinary calculi History of kidney stones PTSD (post-traumatic stress disorder) Skin cancer Skin cancer Thyroid dysfunction Past Surgical History: Procedure Laterality Date SECTION, LOW TRANSVERSE N/A Section from [facility] COLONOSCOPY ESOPHAGOGASTRODUODENOSCOPY GALLBLADDER SURGERY N/A Anastomosis Of Gallbladder from [facility] LITHOTRIPSY N/A Lithotripsy from [facility] OTHER SURGICAL HISTORY N/A Exploratory Laparoscopy from [facility] SHOULDER SURGERY Left TONSILLECTOMY N/A Tonsillectomy from [facility] TUBAL LIGATION N/A Tubal Ligation from [facility] Family History Problem Relation Name Age of Onset Colon cancer Other Breast cancer Other Ovarian cancer Other Ovarian cancer Other Social History Tobacco Use Smoking status: Never Smokeless tobacco: Never Vaping Use Vaping Use: Never used Substance Use Topics Alcohol use: Yes Drug use: Never Comment: Drug use: No drug use ROS: Constitutional: Negative. ENT: Negative Cardiovascular: Negative. Respiratory: Negative Gastrointestinal: dysphagia Musculoskeletal: Negative. @OBJECTBEGIN@ Physical Exam: GENERAL: The patient is alert oriented X 3. Not in pain or distress ABDOMEN: Soft, non tender. Non distended. no palpable swelling / masses. Bowel sounds audible. EXTREMITIES: No edema / rash. Laboratory/Imaging/Pathology: No results for input(s): HGB, PLT, APTT, INR, PTT, BILITOT, BILIDIR in the last 72 hours. Assessment/Plan Ms. Tessie Roa is a 42 y.o. female here today for: PLAN: - Continue NPO - PIV - Obtained consent - Proceed with plans for EGD - The risks, benefits, potential complications, limitations and alternatives to the procedure were discussed, including but not limited to pain, bloating, bleeding, infection, perforation, clinical deterioration, pancreatitis, aspiration, cardiopulmonary and cerebrovascular events, need for emergency surgery and even . The informed was signed by myself and the patient. Eliel Raymundo MD documented in this encounter Plan of Treatment Upcoming Encounters Date Type Department Care Team (Late st Contact Info) Description 12/21/2024 12:40 PM EST Office Visit [facility] Endocrinology [address], [address] [place] [address] [place] [address] [place] [address] 01/25/2025 3:20 PM EST Office Visit [facility] Nephrology, Bone & Mineral Metabolism [address] [facility], [address] [place] [address] David Winslow MD [address] [address] 03/25/2025 11:20 AM EDT Office Visit [facility] Endocrinology [address], [address] [place] [address] (1), Rigoberto Graves Fellow documented as of this encounter Procedures Procedure Name Priority Date/Time Associated Diagnosis Comments EGD Routine 2022 3:12 PM EDT Eosinophilic esophagitis Mucosal abnormality of esophagus SURGICAL PATHOLOGY EXAM Routine 2022 3:08 PM EDT Eosinophilic esophagitis Mucosal abnormality of esophagus documented in this encounter Results * EGD w Dilation (2022 3:12 PM EDT) Anatomical Region Laterality Modality Endoscopy Narrative 2022 3:15 PM EDT Table formatting from the original result was not included. Impression Regular Z-line. Located at GE junction Moderate, generalized granular mucosa with linear furrows and loss of vascular pattern in the middle third of the esophagus and lower third of the esophagus, consistent with eosinophilic esophagitis. No strictures or masses were noted on detailed repeated esophageal exam including retroflexion. The stomach appeared normal. The duodenal bulb, 1st part of the duodenum and 2nd part of the duodenum appeared normal. Recommendation Await pathology results Continue with current medication Follow up with me in clinic Chew food thoroughly - watch for food impactions Indication Eosinophilic esophagitis, Mucosal abnormality of esophagus Dysphagia Medications See anesthesia record for anesthesia administered medications. Staff Staff Role Eliel Raymundo MD Proceduralist Jorge Chang Endo Nurse Jac Moser MD Anesthesiologist Ean Allison CRNA TEACHER HEARING IMPAIRED ?? Unknown Endo Nurse 1 Endo Nurse Preprocedure A history and physical has been performed, and patient medication allergies have been reviewed. The patient's tolerance of previous anesthesia has been reviewed. The risks and benefits of the procedure and the sedation options and risks were discussed with the patient. All questions were answered and informed consent obtained. Details of the Procedure The patient underwent monitored anesthesia care, which was administered by an anesthesia professional. The patient's blood pressure, heart rate, level of consciousness, oxygen and respirations were monitored throughout the procedure. The scope was introduced through the mouth and advanced to the second part of the duodenum. Retroflexion was performed in the cardia. The patient's estimated blood loss was minimal (<5 mL). The procedure was not difficult. The patient tolerated the procedure well. There were no apparent complications. Attestation I personally performed the entire procedure Specimens ID Type Source Tests Collected by Time A : distal bx Tissue Esophagus SURGICAL PATHOLOGY EXAM Eliel Raymundo MD 2022 1508 B : mid bx Tissue Esophagus SURGICAL PATHOLOGY EXAM Eliel Raymundo MD 2022 1508 Findings Regular Z-line. Located at GE junction Moderate, generalized granular mucosa with linear furrows and loss of vascular pattern in the middle third of the esophagus and lower third of the esophagus, consistent with eosinophilic esophagitis. No strictures or masses were noted on detailed repeated esophageal exam including retroflexion. The stomach appeared normal. The duodenal bulb, 1st part of the duodenum and 2nd part of the duodenum appeared normal. us Christopher Mcghee MD GI PROCEDURE ORDERABLES Eva l Result * Surgical Pathology Exam (2022 3:08 PM EDT) Case Report Surgical Pathology ?Case: [id number] ? Authorizing Provider: ??Eliel Raymundo MD ?? Collected: ? 2022 1508 ? Ordering Location: ? [facility] ?Received: ?2022 1718 ? Pathologist: ? Herbert Powell MD ? Specimens: ?? A) - Esophagus, distal bx ? B) - Esophagus, mid bx ? 08/01/2022 2:55 PM EDT [facility] Final Diagnosis A. ESOPHAGUS, DISTAL, BIOPSY: - FINDINGS CONSISTENT WITH EOSINOPHILIC ESOPHAGITIS, WITH TREATMENT EFFECT (SEE COMMENT) B. ESOPHAGUS, MID, BIOPSY: - FINDINGS CONSISTENT WITH EOSINOPHILIC ESOPHAGITIS, WITH TREATMENT EFFECT (SEE COMMENT) 08/01/2022 2:55 PM EDT [facility] Comment The patient's history of eosinophilic esophagitis with treatment is noted. In this material, the distal esophagus exhibits severe hyperplasia, with up to 40 eosinophils/HPF . The mid esophagus exhibits quite mild hyperplasia, with rare eosinophils, up to only 3 eosinophils/HPF . Although there are is no prior pathology in our system for review or comparison, the findings herein are compatible with the patient's known eosinophilic esophagitis, with features of treatment effect, particularly in the mid esophagus. 08/01/2022 2:55 PM EDT [facility] Clinical Information K20.0 - Eosinophilic esophagitis [ICD-10-CM] K22.89 - Mucosal abnormality of esophagus [ICD-10-CM] 08/01/2022 2:55 PM EDT [facility] Gross Description A. DISTAL BX Received in formalin labeled distal biopsy , consists of four nelson/white soft tissue fragments measuring 0.3-0.6 in greatest dimension. Entirely submitted in cassette A1. Grace Deshpande B. MID BX Received in formalin labeled mid biopsy , consists of two nelson/white soft tissue fragments (0.3 and 0.5 cm) entirely submitted in cassette B1. Grace Deshpande 08/01/2022 2:55 PM EDT [facility] Tissue Esophageal structure / Unknown 2022 3:08 PM EDT 2022 5:18 PM EDT Tissue specimen (specimen) Esophageal structure / Unknown 2022 3:08 PM EDT 2022 5:18 PM EDT Eliel Raymundo MD LAB PATHOLOGY ORDERABLES Final Result [facility] [address] [place] [address] documented in this encounter Visit Diagnoses Diagnosis Eosinophilic esophagitis Mucosal abnormality of esophagus documented in this encounter Additional Health Concerns Assessment Noted Time A fall risk assessment has been complete d for the patient 05/31/2022 8:16 AM EDT documented as of this encounter Care Teams Geodetic Computator Relationship Specialty Start Date End Date Uyen Hines MD [address] [place] [address] PCP - General 05/31/22 documented as of this encounter
--- OUTSIDE RECORDS SUMMARY | 2024-10-19 10:54 | XMS_ITS | Clinical Summary ---
Author Organization [facility] Address [address] [facility] [address] [place] [address] Care Team Providers Care Clinical Trial Data Manager Name Role Phone Uyen Hines MD Primary Care Provider [phone] Allergies Active Allergy Reactions Criticality Noted Date Comments Nsaids Other Low 05/31/2022 Kidney Medications Flovent HFA 220 MCG/ACT inhaler Inhale 2 puffs 2 (two) times a day. For EoE - puff and swallow 12 g 09/25/2022 Active Active Problems Problem Noted Date Diagnosed Date Other dysphagia 07/17/2022 Eosinophilic esophagitis 07/17/2022 Diarrhea 07/17/2022 Family History Medical History Relation Name Comments Breast cancer Other Colon cancer Other Relation Name Status Comments Other Social History Tobacco Use Types Packs/Day Years [...] Due Date Last Done Comments HIV Screening 1980 Hepatitis C Screening 1980 MMR Vaccines (1 of 1 - Stand leeanne series) 1983 Depression Risk Screening 1994 Varicella Vaccines (1 of 2 - 13+ 2-dose series) 1995 DTaP/Tdap/Td Vaccines (1 - Tdap) 2001 Hepatitis B Vaccines (1 of 3 - 19+ 3-dose series) 2001 Mammogram 2022 COVID-19 Vaccine (1 - 2023-2 5 season) 2024 Influenza Vaccine (#1) 2024 09/08/2017 Zoster Vaccines (1 of 2) 2032 HIB Vaccines Aged Out No longer eligi ble based on patient's age to complete this topic HPV Vaccines Aged Out No longer eligi ble based on patient's age to complete this topic Hepatitis A Vaccines Aged Out No long er eligible based on patient's age to complete this topic IPV Vaccines Aged Out No longer eligi ble based on patient's age to complete this topic Meningococcal Vaccine Aged Out No fidelina frank eligible based on patient's age to complete this topic Pneumococcal Vaccine: Pediat rics (0 to 5 Years) and At-Risk Patients (6 to 64 Years) Aged Out No longer eligi ble based on patient's age to complete this topic Rotavirus Vaccines Aged Out No longer eligible based on patient's age to complete this topic Insurance [place] MED[place] [employer] Care Teams Clinical Trial Data Manager Relationship Specialty Start Date End Date Uyen Hines MD [address] [place], [place] [address] [address] PCP - General Family Medicine 05/03/22
--- OUTSIDE RECORDS SUMMARY | 2024-10-19 10:54 | XMS_ITS | Encounter Summary ---
Author Organization [facility] Address [address] [place] [address] Care Team Providers Care Top Flavor Attendant Name Role Phone Uyen Hines MD Primary Care Provider [phone] Telma Smith APRN Unavailable [phone] Reason for Referral * Consultation (Routine) - Closed Specialty Diagnoses / Procedures Referred By Christopher yuan Referred To Contact Neurosurgery Diagnoses Abnormal magnetic resonance imaging of cervical spine Cervicalgia Abnormal reflexes Gee Quan APRN [address] [place] [address] Phone: tel: fax: Referral ID Status Reason Start Date Expiration Date V isits Requested Visits Authorized [id number] Closed Specialty Services Required 02/25/2023 08/26/2024 1 1 Encounter Details Date Type Department Care Team (Late st Contact Info) Description 02/25/2023 Community Orders [facility] [address] [place] [address] Gee Quan APRN [address] [place] [address] Abnormal magnetic resonance imaging of cervical spine (Primary Dx); Cervicalgia; Abnormal reflexes Social History Tobacco Use Types Packs/Day Years [...] Upcoming Encounters Date Type Department Care Team ([facility] st Contact Info) Description 12/21/2024 12:40 PM EST Office Visit [facility] Endocrinology [address] [facility], [address] [place] [address] Kajal Smith MD [address] [facility] [address] [place] [address] 01/25/2025 3:20 PM EST Office Visit [facility] Nephrology, Bone & Mineral Metabolism [address] [facility], [address] [place] [address] David Winslow MD [address] [facility] [address] [place] [address] 03/25/2025 11:20 AM EDT Office Visit [facility] Endocrinology [address] [facility], [address] [place] [address] (1), Rigoberto Graves Fellow Scheduled Referrals Name Type Priority Associated Diagnoses Order Schedule Ambulatory Referral to Neurosurgery Outpatient Referral Routine Abnormal magnetic resonance imaging of cervical spine Cervicalgia Abnormal reflexes Expected: 02/25/2023 (Approximate), Expires: 08/27/2024 documented as of this encounter Visit Diagnoses Diagnosis Abnormal magnetic resonance imaging of cervical spine- Primary Cervicalgia Abnormal reflexes Abnormal reflex documented in this encounter Additional Health Concerns Assessment Noted Time A fall risk assessment has been complete d for the patient 05/31/2022 8:16 AM EDT documented as of this encounter Care Teams Top Flavor Attendant Relationship Specialty Start Date End Date Uyen Hines MD [address] [place] [address] PCP - General 05/31/22 Telma Smith APRN [address] [facility] [address] [place] [id number] Nurse Practitioner Neurosurgery 09/01/23 documented as of this encounter
--- OUTSIDE RECORDS SUMMARY | 2024-10-19 10:54 | XMS_ITS | Encounter Summary ---
Author Organization [facility] Address [address] [place] [address] Care Team Providers Care Flue Lining Dipper Name Role Phone Unavailable Primary Care Provider Unavailabl e Encounter Details Date Type Department Care Team (Late st Contact Info) Description 03/12/2017 [facility] Vitals Encounter [facility] [address] [place] [address] ProviderEbony MD [address] [place] [address] Social History Tobacco Use Types Packs/Day Years Used Date Smoking Tobacco: Never Assessed Comments Unknown Sex and Gender Information Value Date Recorded Sex Assigned at Not on file Legal Sex Female 7:35 PM EDT Gender Identity Not on file Sexual Orientation Not on file documented as of this encounter Last Filed Vital Signs Vital Sign Reading Time Taken Comments Blood Pressure - - Pulse - - Temperature - - Respiratory Rate - - Oxygen Saturation - - Inhaled Oxygen Concentration - - Weight 97.7 kg (215 lb 8 oz) 03/12/2017 10:09 AM EDT Height 157.5 cm (5' 2 ) 03/12/2017 10:09 AM EDT Body Mass Index 39.42 03/12/2017 10:09 AM EDT documented in this encounter Plan of Treatment Upcoming Encounters Date Type Department Care Team (Late st Contact Info) Description 12/21/2024 12:40 PM EST Office Visit [facility] [address] [place] [address] Kajal Smith MD [address] [place] [address] 01/25/2025 3:20 PM EST Office Visit [facility] [place] Nephrology, Bone & Mineral Metabolism [address] [facility], [address] [place] [address] David Winslow MD [address] [facility] [address] [place] [address] 03/25/2025 11:20 AM EDT Office Visit [facility] Endocrinology [address] [facility], [address] [place] [address] (1), Rigoberto Graves Fellow documented as of this encounter Visit Diagnoses Not on filedocumented in this encounter
--- OUTSIDE RECORDS SUMMARY | 2024-10-19 10:54 | XMS_ITS | Encounter Summary ---
Author Organization [facility] Address [address] [facility] [address] [place] [address] Care Team Providers Care Snuff Grinder And Screener Name Role Phone Uyen Hines MD Primary Care Provider [phone] Encounter Details Date Type Department Care Team (Latest Contact Info) Description 08/07/2022 Travel Social History Tobacco Use Types Packs/Day [...] on filedocumented in this encounter Care Teams Snuff Grinder And Screener Relationship Specialty Start Date End Date Uyen Hines MD [address] [place] [phone] PCP - General Family Medicine 05/03/22 documented as of this encounter
--- OUTSIDE RECORDS SUMMARY | 2024-10-19 10:54 | XMS_ITS | Encounter Summary ---
Author Organization [facility] Address [address] [place] [address] Care Team Providers Care Program Project Manager Name Role Phone Unavailable Primary Care Provider Unavailabl e Encounter Details Date Type Department Care Team (Late st Contact Info) Description 09/28/2015 [facility] Vitals En[facility] [address] [place] [address] ProviderEbony MD [address] [place] [address] Social History Tobacco Use Types Packs/Day [...] - Inhaled Oxygen Concentration - - Weight 90.3 kg (199 lb 0.2 oz) 09/28/2015 1:14 P M EST Height 157.5 cm (5' 2 ) 09/28/2015 1:14 PM EST Body Mass Index 36.4 09/28/2015 1:14 PM EST documented in this encounter Plan of Treatment Upcoming Encounters Date Type Department Care Team (Late st Contact Info) Description 12/21/2024 12:40 PM EST Office Visit [facility] [address] [place] [address] Kajal Smith MD [address] [place] [address] 01/25/2025 3:20 PM EST Office Visit [facility] Nephrology, Bone & Mineral Metabolism [address] [facility], [address] [place] [address] David Winslow MD [address] [facility] [address] [place] [address] 03/25/2025 11:20 AM EDT Office Visit [facility] Endocrinology [address] [facility], [address] [place] [address] (1), Rigoberto Graves Fellow documented as of this encounter Visit Diagnoses Not on filedocumented in this encounter
--- OUTSIDE RECORDS SUMMARY | 2024-10-19 10:54 | XMS_ITS | Encounter Summary ---
[facility] Organization [facility] Address [address] [place] [address] Care Team Providers Care Arts Administrator Or Manager Name Role Phone Provider, No Known Primary Care Provider Unavail able Reason for Referral * Diagnostic Imaging (Routine) - Closed Specialty Diagnoses / Procedures Referred By Christopher t Referred To Contact Diagnoses Pain and numbness of left upper extremity Procedures EMG & Nerve Conduction Test Chemo Valenzuela Jr., MD [address] [place] [address] Phone: tel: fax: [address] [address] Phone: tel: Referral ID Status Reason Start Date Expiration Date Visits Re quested Visits Authorized [id number] Closed 12/02/2019 12/01/2020 1 1 Reason for Visit * Diagnostic Imaging (Routine) - Closed Specialty Diagnoses / Procedures Referred By Conthunter t Referred To Contact Diagnoses Pain and numbness of left upper extremity Procedures EMG & Nerve Conduction Test Chemo Valenzuela Jr., MD [address] [place] [address] Phone: tel: fax: [address] [address] Phone: tel: Referral ID Status Reason Start Date Expiration Date Visits Re quested Visits Authorized [id number] Closed 12/02/2019 12/01/2020 1 1 Encounter Details Date Type Department Care Team (Latest Contact Info) Description 12/29/2019 8:49 AM EST - 12/29/2019 11:59 PM EST Hospital Encounter [facility] NEUR[facility]Y [facility]ST[facility] [address] [place] [id number] Chemo Valenzuela Jr., MD [address] [place], [place] [id number] Pain and numbness of left upper extremity Discharge Disposition: Home or Self Care Social [...] Name Priority Date/Time Associated Diagnosis Comments EMG 28654 (X1) & NCS 3-4 (00533) Routine 12/29/2019 9:40 AM EST Pain and numbness of left upper extremity documented in this encounter Results * EMG 50250 (X1) & NCS 3-4 (84504) (12/29/2019 9:40 AM EST) Impressions NEUROLOGY - 12/29/2019 9:57 AM EST Normal NCS/EMG of left arm and neck This report is transcribed using the [employer] dictation system. Narrative NEUROLOGY - 12/29/2019 9:57 AM EST Indication: Left arm pain, numbness, brachial plexopathy Clinical: 39 y.o.female with a history of shoulder injury sustained in July 2019. ??She dislocated the left shoulder at that time. ??She has had pain which runs down her arm and at times into her hand into the fifth and first digits. ??Brachial plexopathy is a consideration. ? Nerve Conduction Studies: All studies are performed at a skin temperature of 34??C or greater. Distal sensory latencies are calculated to waveform peak. ??Sensory amplitudes are measured peak to peak Distal motor latencies are calculated to waveform onset. ??Motor amplitudes are calculated baseline to peak Ortho Sensory Summary Table Stim Site NR Peak (ms) Norm Peak (ms) P-T Amp (??V) Norm P-T Amp Site1 Site2 Delta-P (ms) Dist (cm) Navjot (m/s) Norm Navjot (m/s) Left Median Ortho Sensory (Wrist) 2nd Digit ?1.9 ??41.9 ??2nd Digit Wrist 1.9 8.0 42 ?? Palm ?1.9 ??40.2 ??Palm Wrist 1.9 0.0 ?? Left Ulnar Ortho Sensory (Wrist) 5th Digit ?1.7 ??21.4 ??5th Digit Wrist 1.7 8.0 47 ?? Palm ?1.6 ??37.7 ??Palm Wrist 1.6 0.0 ?? Motor Summary Table Stim Site NR Onset (ms) Norm Onset (ms) O-P Amp (mV) Norm O-P Amp Site1 Site2 Delta-0 (ms) Dist (cm) Navjot (m/s) Norm Navjot (m/s) Left Median Motor (Abd Poll Brev) Wrist ?3.6 <4.2 10.0 >5 Elbow Wrist 3.4 18.5 54 >50 Elbow ?7.0 ??9.3 ? Left Ulnar Motor (Abd Dig Minimi) Wrist ?3.0 <4.2 12.4 >3 B Elbow Wrist 3.2 20.5 64 >53 B Elbow ?6.2 ??13.3 ??A Elbow B Elbow 1.7 10.0 59 >53 A Elbow ?7.9 ??12.7 ? F Wave Studies NR F-Lat (ms) Lat Norm (ms) L-R F-Lat (ms) L-R Lat Norm Left Median (Mrkrs) (Abd Poll Brev) ?? 24.77 <33 ??<2.2 Left Ulnar (Mrkrs) (Abd Dig Min) ?? 25.78 <36 ??<2.5 ? Median sensory latency on the left is normal with normal amplitude The ulnar sensory latency on the left is normal with normal amplitude Study of the left median motor nerve is normal Study of the left ulnar motor nerve is normal Left median and ulnar motor F wave latencies are normal Electromyogram: Side Muscle Nerve Root Ins Act Fibs [...] Nml Nml Nml 0 Nml Nml ?? Needle examination is performed of multiple muscles of the left arm, shoulder, and cervical paraspinous muscles. ??All are normal. us Chemo Valenzuela Jr., MD NEUROLOGY ORDERABLES Fi nal Result NEUROLOGY documented in this encounter Visit Diagnoses Diagnosis Pain and numbness of left upper extremity documented in this encounter Care Teams Arts Administrator Or Manager Relationship Specialty Start Date End Date Provider, [place] [address] PCP - General 12/02/19 05/31/20 documented as of this encounter
--- OUTSIDE RECORDS SUMMARY | 2024-10-19 10:54 | XMS_ITS | Encounter Summary ---
Author Organization [facility] Address [address] [place] [address] Care Team Providers Care Digital Community Manager Name Role Phone Uyen Hines MD Primary Care Provider [phone] Telma Smith APRN Unavailable [phone] Encounter Details Date Type Department Care Team (Late Contact Info) Description 02/14/2023 Orders Only External Location [address] [place] [id number] Provider, External Social History Tobacco Use Types [...] 12:40 PM EST Office Visit [facility] Endocrinology [address] [place] [address] Kajal Smith MD [address] [place] [address] 01/25/2025 3:20 PM EST Office Visit [facility] Nephrology, Bone & Mineral Metabolism [address] [facility], [address] [place] [address] David Winslow MD [address] [facility] [address] [place] [address] 03/25/2025 11:20 AM EDT Office Visit [facility] Endocrinology [address], [address] [place] [address] (1), Rigoberto Graves Fellow documented as of this encounter Procedures Procedure Name Priority Date/Time Associated Diagnosis Comments MR CERVICAL SPINE WO IV CONTRAST 02/14/2023 10:18 AM EDT documented in this encounter Results * MR Cervical Spine wo IV Contrast (02/14/2023 10:18 AM EDT) Anatomical Region Laterality Modality C-spine Magnetic Resonan ce 02/14/2023 10:1 8 AM EDT us External Provider IMG MRI PROCEDURES Final Resul t documented in this encounter Visit Diagnoses Not on filedocumented in this encounter Additional Health Concerns Assessment Noted Time A fall risk assessment has been complete d for the patient 05/31/2022 8:16 AM EDT documented as of this encounter Care Teams Digital Community Manager Relationship Specialty Start Date End Date Uyen Hines MD [address] [place] [address] PCP - General 05/31/22 Telma Smith APRN [address] [facility] [address] [place] [address] Nurse Practitioner Neurosurgery 09/01/23 documented as of this encounter
--- OUTSIDE RECORDS SUMMARY | 2024-10-19 10:54 | XMS_ITS | Encounter Summary ---
Author Organization [facility] Address [address] [place] [place] [id number] Care Team Providers Care Managing Principal Name Role Phone Unavailable Primary Care Provider Unavailabl e Encounter Details Date Type Department Care Team (Late st Contact Info) Description 05/10/2022 Telephone [facility] [address] [place] [address] Anita Brooks RN [facility] Social History Tobacco Use Types Packs/Day Years Used Date Smoking Tobacco: Never Alcohol Use Standard Drinks/Week Comments Yes 0 (1 standard drink = 0.6 oz pur e alcohol) Comments Unknown Sex and Gender Information Value Date Recorded Sex Assigned at Not on file Legal Sex Female 7:35 PM EDT Gender Identity Not on file Sexual Orientation Not on file documented as of this encounter Miscellaneous Notes * Telephone Encounter - Anita Brooks RN - 05/15/2022 12:46 PM EDT Called and spoke with gonzález at referring office. they need EGD with dilation only. they will fax order to endoscopy. * Telephone Encounter - Anita Brooks RN - 05/10/2022 2:29 PM EDT Triage received referral for Dr. Hi. Need clarification if this is for an office visit or a procedure. They have checked off EGD with dilation in the referral box, but office visit request was sent to triage for dx of EOE. documented in this encounter Plan of Treatment Upcoming Encounters Date Type Department Care Team (Late st Contact Info) Description 12/21/2024 12:40 PM EST Office Visit [facility] Endocrinology [address] [place] [address] Kajal Smith MD [address] [facility] [address] [place] [address] 01/25/2025 3:20 PM EST Office Visit [facility] Nephrology, Bone & Mineral Metabolism [address] [facility], [address] [place] [address] David Winslow MD [address] [facility] [address] [place] [address] 03/25/2025 11:20 AM EDT Office Visit [facility] Endocrinology [address] , [address] [place] [address] (1), Rigoberto Graves Fellow documented as of this encounter Visit Diagnoses Not on filedocumented in this encounter
--- OUTSIDE RECORDS SUMMARY | 2024-10-19 10:54 | XMS_ITS | Encounter Summary ---
Author Organization [facility] Address [address] [place] [address] Care Team Providers Care Laundry Routeman Name Role Phone Unavailable Primary Care Provider Unavailabl e Encounter Details Date Type Department Care Team (Late st Contact Info) Description 07/10/2016 [facility] Vitals Encounter [facility] [address] [place] [address] ProviderEbony MD [address] [place] [address] Social History Tobacco Use Types Packs/Day [...] - Inhaled Oxygen Concentration - - Weight 93.7 kg (206 lb 8.1 oz) 07/10/2016 10:54 AM EDT Height 157.5 cm (5' 2 ) 07/10/2016 10:54 AM EDT Body Mass Index 37.77 07/10/2016 10:54 AM EDT documented in this encounter Plan of Treatment Upcoming Encounters Date Type Department Care Team (Late st Contact Info) Description 12/21/2024 12:40 PM EST Office Visit [facility] [address] , [address] [place] [address] Kajal Smith MD [address] [place] [address] 01/25/2025 3:20 PM EST Office Visit [facility] Nephrology, Bone & Mineral Metabolism [address] [facility], [address] [place] [address] David Winslow MD [address] [facility] [address] [place] [address] 03/25/2025 11:20 AM EDT Office Visit [facility] Endocrinology [address] [facility], [address] [place] [address] (1), Rigoberto Graves Fellow documented as of this encounter Visit Diagnoses Not on filedocumented in this encounter
--- OUTSIDE RECORDS SUMMARY | 2024-10-19 10:54 | XMS_ITS | Encounter Summary ---
Author Organization [facility] Address [address] [place] [address] Care Team Providers Care Pbx Teacher Name Role Phone Uyen Hines MD Primary Care Provider Encounter Details Date Type Department Care Team (Latest Contact Info) Description 05/31/2022 Travel Social History Tobacco Use Types Packs/Day [...] 12/21/2024 12:40 PM EST Office [facility] [address], [address] [place] [address] Kajal Smith MD [address] [place] [address] 01/25/2025 3:20 PM EST Office Visit [facility] Nephrology, Bone & Mineral Metabolism [address], [address] [place] [address] David Winslow MD [address] [facility] [address] [place] [address] 03/25/2025 11:20 AM EDT [facility] [address] [facility], [address] [place] [address] (1), Rigoberto Graves Fellow documented as of this encounter Visit Diagnoses Not on filedocumented in this encounter Additional Health Concerns Assessment Noted Time A fall risk assessment has been complete d for the patient 05/31/2022 8:16 AM EDT documented as of this encounter Care Teams Pbx Teacher Relationship Specialty Start Date End Date Uyen Hines MD [address] [place] [address] PCP - General 05/31/22 documented as of this encounter
--- OUTSIDE RECORDS SUMMARY | 2024-10-19 10:54 | XMS_ITS | Encounter Summary ---
Author Organization [facility] Address [address] [place] [address] Care Team Providers Care Tire Changer Name Role Phone Uyen Hines MD Primary Care Provider [phone] Telma Smith APRN Unavailable [phone] Encounter Details Date Type Department Care Team (Late Contact Info) Description 02/14/2023 Orders Only External Location [address] [place] [id number] Provider, External Social History Tobacco Use Types [...] Description 12/21/2024 12:40 PM EST Office Visit [facility] Endocrinology [address] [place] [address] Kajal Smith MD [address] [place] [address] 01/25/2025 3:20 PM EST Office Visit [facility] Nephrology, Bone & Mineral Metabolism [address] [facility], [address] [place] [address] David Winslow MD [address] [facility] [address] [place] [address] 03/25/2025 11:20 AM EDT Office Visit [facility] Endocrinology [address] [facility], [address] [place] [address] (1), Rigoberto Graves Fellow documented as of this encounter Procedures Procedure Name Priority Date/Time Associated Diagnosis Comments MR HEAD WO IV CONTRAST 02/14/2023 10:18 AM EDT documented in this encounter Results * MR Head wo IV Contrast (02/14/2023 10:18 AM EDT) Anatomical Region Laterality Modality Head Magnetic Resonan ce 02/14/2023 10:1 8 AM EDT us External Provider IMG MRI PROCEDURES Final Resul t documented in this encounter Visit Diagnoses Not on filedocumented in this encounter Additional Health Concerns Assessment Noted Time A fall risk assessment has been complete d for the patient 05/31/2022 8:16 AM EDT documented as of this encounter Care Teams Tire Changer Relationship Specialty Start Date End Date Uyen Hines MD [address] [place] [address] PCP - General 05/31/22 Telma Smith APRN [address] [facility] [facility] [address] [place] [address] Nurse Practitioner Neurosurgery 09/01/23 documented as of this encounter
[2024-10-19 11:22] VITALS: BP 145/89; PULSE 82; RESP 16; TEMP 36.6; O2SAT 97; BMI 37.3
[2024-10-19 11:40] VITALS: BP 151/93; PULSE 91; RESP 18; O2SAT 99
[2024-10-19 11:42] VITALS: BP 151/93; PULSE 81; RESP 18; O2SAT 99
[2024-10-19 11:56] VITALS: BP 139/96; PULSE 80; RESP 16; O2SAT 100
--- NOTE | 2024-10-19 12:16 | EXP.PAIN.PRO ---
Procedure Date: 10/19/24 Time: 11:40 Anesthesiologist:: Danny Kowalski CRNA Complications:: None Pre-procedure Diagnosis:: Degenerative disc lumbar spine multilevels. Lumbar radiculopathy. Lumbar postlaminectomy syndrome. Post-procedure Diagnosis:: Same. Indications for Procedure:: Patient is a very pleasant 44-year-old female who comes to clinic today for intrathecal pain pump interrogation refill. Patient currently being managed with morphine sulfate 1 mg/mL at a rate of 0.2128 milligrams per day. Patient doing very well with her current settings. She is not reporting side effects or complications. Patient is a requesting increase in the rate due to increased low back pain. Also, we will set up the patient's PTM today. Procedure Details:: Details of the procedure explained to the patient. The patient taken procedure and placed in sitting position. They over the pump was cleansed using chlorhexidine as a cleansing solution. The pump was interrogated. The pump was accessed with ease using a 22-gauge inch and half needle. 3 mL of solution was withdrawn discarded appropriate. The pump was then filled with morphine sulfate 1 mg/mL. The pump rate will be increased by 20%. The new rate 0.2556 mg/day. Also, patient was set up with bolus option 4 times daily. The bolus dose will be 0.0255 mg. Patient tolerated procedure without difficulty. There are no complications Plan and Disposition:: Patient was discharged without incident.
== END 2024-10-19 11:56 | disposition home or self-care (01) ==
LOC: SC.PAINP 10:47
PROVIDERS: PCP Family Medicine; Visit Provider Nurse Anesthetist, Certified Registered
DX: M51.16 Intervertebral disc disorders with radiculopathy, lumbar region (principal); M96.1 Postlaminectomy syndrome, not elsewhere classified
CPT/HCPCS: 62370

== ENCOUNTER 2024-11-26 09:23 | Day surgery (SDC) | payer MEDICAID, SELFPAY ==
[2024-11-26 09:47] VITALS: BP 131/91; PULSE 75; RESP 18; O2SAT 96
[2024-11-26 09:48] VITALS: BP 133/83; PULSE 79; RESP 16; TEMP 36.6; O2SAT 96; BMI 37.5
[2024-11-26 09:52] VITALS: BP 131/91; PULSE 75; RESP 18; O2SAT 96
--- NOTE | 2024-11-26 09:55 | EXP.PAIN.PRO ---
Procedure Date: 11/26/24 Time: 09:55 Anesthesiologist:: Jeanne Blanton APRN Complications:: None Pre-procedure Diagnosis:: Degenerative disc disease of cervical and lumbar spine with lumbar radiculopathy symptoms Post-procedure Diagnosis:: Same Indications for Procedure:: Patient is a pleasant 44-year-old female who presents today for intrathecal refill and reprogram. Today she rates her pain a 4 out of 10. She denies any new injury or trauma. She is currently managed with morphine 1 mg/mL with a daily dose of 0.2556 mg/day. She denies any side effects from this medication. She does state that she is stayed very tender all around the pump site. She states this is been ongoing. She has prescribed clonazepam from an outside provider and compounded cream from our office her Abram has been reviewed and is appropriate. Physical Exam: General: Alert and oriented x3, no acute distress, pleasant and cooperative Lungs: Respirations even and unlabored, symmetrical chest expansion Eyes: PERRL Musculoskeletal: Flexion and extension of lumbar [spine] somewhat guarded secondary to pain, [antalgic gait noted] Neurological: Speech clear, no gross sensory deficit Procedure Details:: Informed consent was obtained and the risk and benefits of the procedure were explained to the patient. The patient had noninvasive monitoring placed including noninvasive blood pressure cuff and pulse oximeter. Patient's pump was interrogated. The area over the pump was cleansed with chlorhexidine as a cleansing solution. In sterile fashion the pump was accessed with a 22-gauge needle. Approximately 10 mls of the pump solution was removed and discarded appropriately. The pump was then refilled with 20 mL's of morphine 1 mg/mL. The needle was withdrawn and a bandage was placed over the puncture site. The infusion rate was reprogrammed and continued at morphine 0.2556 mg/day. The patient tolerated well with no complication. Plan and Disposition:: Patient tolerated her procedure well with no complications and was discharged neurologically intact. I did discuss with the patient regarding her tenderness all around her pump site that she may benefit from trigger point injections and to keep us posted if she would like to proceed forward with this option. I did discuss applying her compounded cream around the site however she states she has not noticed much improvement. We will follow-up with this at future visits. Patient will return to clinic for her next intrathecal refill and reprogram date. We will see the patient back in the clinic at the next intrathecal refill. Patient has been instructed to contact the clinic with any concerns before the next appointment. Dr. Bueno has reviewed this note and agrees with this plan of care. This note was dictated using voice recognition software and make contain errors or omissions. -- It Is medically necessary for this patient to continue to have their intrathecal pump refilled at regular intervals. This patient had an intrathecal pain pump implanted after meeting criteria of chronic intractable pain for greater than 3 months and failing conservative treatments. Patient has committed and been compliant to the treatment plan and all planned follow up care. Since implantation of the intrathecal pain pump, the patient has had decreased pain and been more functional. Oral medications have been reduced including intake of oral opioids. Patient continues to do well with intrathecal therapy with decrease in pain symptoms and increase in functional status. Stopping intrathecal medications can lead to life threatening withdrawal, seizures, cardiac arrest, severe pain, and possible . Pumps that are not refilled at regular intervals can be damages and cause and need for replacement. We continually titrate dose and concentration to optimize pain relief and function. We are limited in concentration for certain drugs to safely deliver medications through the pump and stay within the recommendations from the Polyanalgesic Consensus Committee Guidelines. Depending on dose and concentration these pumps may need to be refilled sooner than 3 months as we titrate. A UDS is needed to verify patient's compliance with our office pain contract. This is ordered based off specific treatments related to chronic pain with the potential to abuse certain medications.
[2024-11-26 10:08] VITALS: BP 120/86; PULSE 74; RESP 16; O2SAT 100
== END 2024-11-26 10:08 | disposition home or self-care (01) ==
PROVIDERS: PCP Family Medicine; Visit Provider Nurse Practitioner Family
DX: M51.16 Intervertebral disc disorders with radiculopathy, lumbar region (principal); M50.30 Other cervical disc degeneration, unspecified cervical region
CPT/HCPCS: 62370

== ENCOUNTER 2024-12-16 09:36 | Outpatient (POV) | payer MEDICAID, SELFPAY ==
--- NOTE | 2024-12-16 10:13 | A.OFFVIS_ITS ---
[facility] Disclaimer: The information contained in this section may have been updated after the patient was seen, as this information can be updated by other users. Medical History (Updated 12/16/24 @ 10:15 by Jeanne Blanton APRN) SANJU (obstructive sleep apnea) Chronic headaches Surgical History History of ureteroscopy History of colonoscopy History of esophagogastroduodenoscopy (EGD) History of laparoscopic cholecystectomy History of hysterectomy Family History Other Cancer Coronary artery disease Hypertension Stroke Thyroid disorder Social History Smoking Status: Never smoker alcohol intake: never substance use type: denies use current occupational status: other Travel in the last 8 weeks: None household members: spouse housing: house marital status: PM Subjective & Objective Subjective Subjective:: Patient is a pleasant 44-year-old female who presents today for worsening pain in her bilateral knees. She rates her pain a 6 out of 10. Patient states the pain is constant and describes it as a throbbing, numbness, burning sensation that does interfere with her ability perform activities of daily living such as cooking and cleaning. Patient does state that she has had chronic knee issues for more than 6 months however she feels like it is progressively worsening. She does state that the pain is much worse when she is up walking or standing for prolonged time. Patient states that she did recently have a fall on Friday due to her knees buckling causing her to hit her head. She states that she did go to the local hospital there at [facility] and had no acute findings. Patient states that she has been having more swelling since this fall. She denies this problem prior. Patient is currently managed with intrathecal morphine 1 mg/mL with a daily dose of 0.2556 mg/day. She denies any side effects. Her Abram has been reviewed and is appropriate. Review of Systems: General: No recent weight changes, no fever, no sleep disturbances Respiratory: No cough, no shortness of air, no recurring pulmonary infections Cardiovascular/peripheral vascular: No chest pain, no palpitations, no edema, no shortness of breath Gastrointestinal: No new onset incontinence, normal bowel movements reported Genitourinary: No new onset incontinence Musculoskeletal: Bilateral knee pain Psychiatric: [Normal mood/affect] Neurological: [Denies weakness in extremities], [denies balance issues] Pain at rest (0-10 scale): 6 Objective Objective:: Physical Exam: General: Alert and oriented x3, no acute distress, pleasant and cooperative Lungs: Respirations even and unlabored, symmetrical chest expansion Eyes: PERRL Musculoskeletal: Flexion and extension of bilateral knees somewhat guarded secondary to pain, [antalgic gait noted] Neurological: Speech clear, no gross sensory deficit Has patient had previous pain injection?: No Conservative treatment options previously tried: Home exercise plan Length of treatment: Longer than 12 weeks Meds Home Medications and Allergies Home Medications ?Medication ?Instructions ?Recorded ?Confirmed ?Type acetaminophen 500 mg tablet 1,000 mg PO Q6H PRN Pain 02/04/23 11/26/24 History (Tylenol Extra Strength) alprazolam 1 mg tablet 1 mg PO NEEDED PRN Anxiety 02/04/23 11/26/24 History carvedilol 6.25 mg tablet 6.25 mg PO BID 02/04/23 11/26/24 History escitalopram oxalate 20 mg tablet 20 mg PO DAILY 02/04/23 11/26/24 History lisinopril 10 mg tablet 10 mg PO DAILY 02/04/23 11/26/24 History pantoprazole 40 mg tablet,delayed 40 mg PO DAILY 02/04/23 11/26/24 History release atogepant 60 mg tablet (Qulipta) 60 mg PO DAILY Chronic migraine 10/01/23 11/26/24 Rx #30 tabs buspirone 7.5 mg tablet 7.5 mg PO TID 10/01/23 11/26/24 History dupilumab 300 mg/2 mL subcutaneous 300 mg SQ WEEKLY 10/01/23 11/26/24 History pen injector (Dupixent) tizanidine 4 mg tablet 4 mg PO HS PRN cervicogenic 10/01/23 11/26/24 Rx headaches #30 tabs ubrogepant 100 mg tablet (Ubrelvy) 100 mg PO ONCE PRN migraine 10/01/23 11/26/24 Rx headache #10 tabs cariprazine 1.5 mg capsule 1.5 mg PO DAILY mood 01/27/24 11/26/24 History (Vraylar) lamotrigine 100 mg tablet 100 mg PO BID mood 01/27/24 11/26/24 History prazosin 1 mg capsule 1 mg PO DAILY 01/27/24 11/26/24 History atogepant 60 mg tablet (Qulipta) 60 mg PO DAILY Chronic migraine 05/18/24 11/26/24 Rx #30 tabs levothyroxine 200 mcg tablet 100 mcg PO DAILY 05/18/24 11/26/24 History tizanidine 4 mg tablet 4 mg PO HS PRN cervicogenic 05/18/24 11/26/24 Rx headaches #30 tabs ubrogepant 100 mg tablet (Ubrelvy) 100 mg PO ONCE PRN migraine 05/18/24 11/26/24 Rx headache #10 tabs New Prescriptions to Start Prescriptions: Allergies Allergy/AdvReac Type Severity Reaction Status Date / Time No Known Allergies Allergy Verified 05/18/24 08:34 Assessment and Plan *Assessment and plan (1) Bilateral knee pain: Status: Acute Category: Medical Code(s): M25.561 - Pain in right knee; M25.562 - Pain in left knee Plan Patient is experiencing significant pain with limited range of motion of her bilateral knees. Patient does have some mild swelling today. I did discuss with the patient that I would like to order x-ray and CT without contrast imaging of her bilateral knees. I did also discuss with the patient that I do believe she would benefit from bilateral intra-articular knee injections. Patient denies any prior surgery history on her knees. Risk and benefits were discussed with the patient and she would like to proceed forward with this plan of care. Patient has tried and failed conservative therapy including oral medication, heat and ice, topicals, at home stretching exercise for longer than 12 weeks. Patient will be scheduled for bilateral intra-articular knee injections without fluoroscopy or ultrasound. Patient has been instructed to contact the clinic with any concerns before the next appointment. Dr. Bueno has reviewed this note and agrees with this plan of care. This note was dictated using voice recognition software and make contain errors or omissions. All injections are used with Lidocaine, Bupivacaine and Depo Medrol. Occasionally urine drug screen is needed to verify patient's compliance with our office pain contract. This is ordered based off specific treatments related to chronic pain with the potential to abuse certain medications.
--- NOTE | 2024-12-16 10:19 | XR_ITS ---
FINAL REPORT CLINICAL HISTORY: pain COMPARISON: None FINDINGS: RIGHT KNEE 3 views of the right knee were obtained. There is no acute fracture or dislocation. Visualized joint spaces are normally aligned. Soft tissues are unremarkable. IMPRESSION: No acute bony abnormality. Reviewed, Interpreted and Dictated by Doc Antonio MD Transcribed by Jennifer June Authenticated and [facility]
--- NOTE | 2024-12-16 10:19 | XR_ITS ---
FINAL REPORT CLINICAL HISTORY: B/L KNEE PAIN COMPARISON: None FINDINGS: LEFT KNEE 3 views of the left knee were obtained. There is no acute fracture or dislocation. Visualized joint spaces are normally aligned. Soft tissues are unremarkable. IMPRESSION: No acute bony abnormality. Reviewed, Interpreted and Dictated by Doc Antonio MD Transcribed by Jennifer June Authenticated and [facility]
[2024-12-16 11:17] VITALS: BP 107/72; PULSE 80; RESP 18; O2SAT 96; BMI 37.5
== END 2024-12-16 23:59 | disposition home or self-care (01) ==
PROVIDERS: PCP Family Medicine; Visit Provider Nurse Practitioner Family
DX: M25.561 Pain in right knee (principal); M25.562 Pain in left knee; Z73.89 Other problems related to life management difficulty; Z79.899 Other long term (current) drug therapy
CPT/HCPCS: 73562; 99212; G0463

== ENCOUNTER 2025-01-14 09:33 | Day surgery (SDC) | payer MEDICAID, SELFPAY ==
[2025-01-14 09:43] VITALS: BP 130/87; PULSE 109; RESP 16; TEMP 36.8; O2SAT 98; BMI 38.2
--- NOTE | 2025-01-14 09:50 | P.PCN_ITS ---
Procedure Date: 01/14/25 Time: 09:58 Anesthesiologist:: Jeanne Blanton APRN Complications:: None Pre-procedure Diagnosis:: Degenerative disc disease of lumbar spine with lumbar radiculopathy symptoms Post-procedure Diagnosis:: Same Indications for Procedure:: Patient is a pleasant 44-year-old sent today for intrathecal refill and reprogram. Today she does rated her pain at a 4 out of 10 in her low back however at least a 7 out of 10 in her legs. Patient denies any new trauma or injury however does state that she is just been having awful pain in her legs with any type of movement or increased activity. She states that it is an aching, throbbing sensation with numbness and tingling that radiates down from her hips all the way to her feet bilaterally. Patient does state she has been to see a provider who did feel like it was more related to her adrenal glands and that they were overworking causing worsening pain symptoms. Patient is interested in any options we may be able to provide to help with this pain as it is interfering with her ability perform activities of daily living such as cooking and cleaning. Patient is currently managed with morphine 1 mg/mL with a daily dose of 0.2556 mg/day. She denies any side effects from this medication. Her Abram has been reviewed and is appropriate. Physical Exam: General: Alert and oriented x3, no acute distress, pleasant and cooperative Lungs: Respirations even and unlabored, symmetrical chest expansion Eyes: PERRL Musculoskeletal: Flexion and extension of lumbar [spine] somewhat guarded secondary to pain, [antalgic gait noted] positive leg raise Neurological: Speech clear, no gross sensory deficit Procedure Details:: Informed consent was obtained and the risk and benefits of the procedure were explained to the patient. The patient had noninvasive monitoring placed including noninvasive blood pressure cuff and pulse oximeter. Patient's pump was interrogated. The area over the pump was cleansed with chlorhexidine as a cleansing solution. In sterile fashion the pump was accessed with a 22-gauge needle. Approximately 7 mls of the pump solution was removed and discarded appropriately. The pump was then refilled with 20 mL's of morphine 1 mg/mL. The needle was withdrawn and a bandage was placed over the puncture site. The infusion rate was reprogrammed and continued at its current dosage of 0.2556 mg/day of morphine. The patient tolerated well with no complication. Plan and Disposition:: Patient is experiencing worsening pain in [her] low back with numbness and tingling into her lower extremities. Patient did have limited range of motion of her lumbar spine with a positive leg raise. I did discuss with patient that I do believe they would benefit from a lumbar epidural steroid injection. Risk and benefits were discussed with patient and the patient would like to discuss this with her before proceeding forward. Patient is not on any blood thinners. Patient has tried and failed conservative therapy including continued at home stretching exercise for longer than 12 weeks. Patient was counseled that she can call our office between now and her next visit if she would like to go ahead and proceed forward with the epidural injection. We would plan for a L5-S1 lumbar epidural steroid injection under fluoroscopy. Patient agrees with this plan of care. Patient tolerated her intrathecal pain pump refill with no complications and was discharged neurologically intact. We will schedule the patient for an LESI L5-S1 under fluoroscopy. We will see the patient back in the clinic at the next intrathecal refill. Patient has been instructed to contact the clinic with any concerns before the next appointment. Dr. Bueno has reviewed this note and agrees with this plan of care. This note was dictated using voice recognition software and make contain errors or omissions. -- It Is medically necessary for this patient to continue to have their intrathecal pump refilled at regular intervals. This patient had an intrathecal pain pump implanted after meeting criteria of chronic intractable pain for greater than 3 months and failing conservative treatments. Patient has committed and been compliant to the treatment plan and all planned follow up care. Since implantation of the intrathecal pain pump, the patient has had decreased pain and been more functional. Oral medications have been reduced including intake of oral opioids. Patient continues to do well with intrathecal therapy with decrease in pain symptoms and increase in functional status. Stopping intratheca l medications can lead to life threatening withdrawal, seizures, cardiac arrest, severe pain, and possible . Pumps that are not refilled at regular intervals can be damages and cause and need for replacement. We continually titrate dose and concentration to optimize pain relief and function. We are limited in concentration for certain drugs to safely deliver medications through the pump and stay within the recommendations from the Polyan[employer] Consensus Committee Guidelines. Depending on dose and concentration these pumps may need to be refilled sooner than 3 months as we titrate. A UDS is needed to verify patient's compliance with our office pain contract. This is ordered based off specific treatments related to chronic pain with the potential to abuse certain medications.
[2025-01-14 09:53] VITALS: BP 136/91; PULSE 105; RESP 18; O2SAT 97
[2025-01-14 09:56] VITALS: BP 136/91; PULSE 105; RESP 18; O2SAT 97
[2025-01-14 10:09] VITALS: BP 138/83; PULSE 93; RESP 16; O2SAT 99
== END 2025-01-14 10:09 | disposition home or self-care (01) ==
PROVIDERS: PCP Family Medicine; Visit Provider Nurse Practitioner Family
DX: M51.16 Intervertebral disc disorders with radiculopathy, lumbar region (principal); Z73.89 Other problems related to life management difficulty
CPT/HCPCS: 62370

== ENCOUNTER 2025-02-25 10:01 | Day surgery (SDC) | payer MEDICAID, SELFPAY ==
--- NOTE | 2025-02-25 10:03 | P.PCN_ITS ---
Procedure Date: 02/25/25 Time: 10:28 Anesthesiologist:: Jeanne Blanton APRN Complications:: None Pre-procedure Diagnosis:: Degenerative disc disease of cervical spine, chronic pain syndrome, headaches Post-procedure Diagnosis:: Same Indications for Procedure:: Patient is a pleasant 44-year-old female who presents today for intrathecal refill and reprogram. Today she rates her pain 5 out of 10. She denies any new trauma or injury. She does state the pain is all related to the car ride over. Patient states overall her medication is doing well and denies any need for adjustment. Patient is currently managed with morphine 1 mg/mL with a daily dose of 0.2556 mg/day. Her Abram has been reviewed and is appropriate. Physical Exam: General: Alert and oriented x3, no acute distress, pleasant and cooperative Lungs: Respirations even and unlabored, symmetrical chest expansion Eyes: PERRL Musculoskeletal: Flexion and extension of cervical [spine] somewhat guarded secondary to pain, [antalgic gait noted] Neurological: Speech clear, no gross sensory deficit Procedure Details:: Informed consent was obtained and the risk and benefits of the procedure were explained to the patient. The patient had noninvasive monitoring placed incl uding noninvasive blood pressure cuff and pulse oximeter. Patient's pump was interrogated. The area over the pump was cleansed with chlorhexidine as a cleansing solution. In sterile fashion the pump was accessed with a 22-gauge needle. Approximately 9.1 mls of the pump solution was removed and discarded appropriately. The pump was then refilled with 20 mL's of morphine 1 mg/ml. The needle was withdrawn and a bandage was placed over the puncture site. The infusion rate was reprogrammed and continued at its current dose. The patient tolerated well with no complication. Plan and Disposition:: Patient tolerated the procedure well with no complications and was discharged neurologically intact. Patient will return to clinic on or before their next intrathecal refill date. We will see the patient back in the clinic at the next intrathecal refill. Patient has been instructed to contact the clinic with any concerns before the next appointment. Dr. Bueno has reviewed this note and agrees with this plan of care. This note was dictated using voice recognition software and make contain errors or omissions. -- It Is medically necessary for this patient to continue to have their intrathecal pump refilled at regular intervals. This patient had an intrathecal pain pump implanted after meeting criteria of chronic intractable pain for greater than 3 months and failing conservative treatments. Patient has committed and been compliant to the treatment plan and all planned follow up care. Since implantation of the intrathecal pain pump, the patient has had decreased pain and been more functional. Oral medications have been reduced including intake of oral opioids. Patient continues to do well with intrathecal therapy with decrease in pain symptoms and increase in functional status. Stopping intrathecal medications can lead to life threatening withdrawal, seizures, cardiac arrest, severe pain, and possible . Pumps that are not refilled at regular intervals can be damages and cause and need for replacement. We continually titrate dose and concentration to optimize pain relief and function. We are limited in concentration for certain drugs to safely deliver medications through the pump and stay within the recommendations from the Polyanalges[employer] Consensus Committee Guidelines. Depending on dose and concentration these pumps may need to be refilled sooner than 3 months as we titrate. A UDS is needed to verify patient's compliance with our office pain contract. This is ordered based off specific treatments related to chronic pain with the potential to abuse certain medications.
[2025-02-25 10:19] VITALS: BP 107/63; PULSE 89; RESP 16; TEMP 36.9; O2SAT 98; BMI 36.8
[2025-02-25 10:22] VITALS: BP 107/69; PULSE 99; RESP 18; O2SAT 97
[2025-02-25 10:24] VITALS: BP 107/69; PULSE 99; RESP 18; O2SAT 97
[2025-02-25 10:38] VITALS: BP 114/73; PULSE 94; RESP 16; TEMP 36.8; O2SAT 98
== END 2025-02-25 10:38 | disposition home or self-care (01) ==
PROVIDERS: PCP Family Medicine; Visit Provider Nurse Practitioner Family
DX: M50.30 Other cervical disc degeneration, unspecified cervical region (principal); G89.4 Chronic pain syndrome; R51.9 Headache, unspecified
CPT/HCPCS: 62370

== ENCOUNTER 2025-04-01 10:54 | Day surgery (SDC) | payer MEDICAID, SELFPAY ==
[2025-04-01 11:00] VITALS: BP 113/80; PULSE 73; RESP 16; TEMP 36.4; O2SAT 93; BMI 38.1
--- NOTE | 2025-04-01 11:32 | EXP.HP ---
History of Present Illness *Admission Date: 04/01/25 *Reason for visit:: Intrathecal refill; DDD *History of present illness: DDD PFSH PFS Disclaimer: The information contained in this section may have been updated after the patient was seen, as this information can be updated by other users. Medical History (Updated 04/01/25 @ 11:34 by Jeanne Blanton APRN) SANJU (obstructive sleep apnea) Chronic headaches Surgical History History of ureteroscopy History of colonoscopy History of esophagogastroduodenoscopy (EGD) History of laparoscopic cholecystectomy History of hysterectomy Family History Other Cancer Coronary artery disease Hypertension Stroke Thyroid disorder Social History Smoking Status: Never smoker alcohol intake: never substance use type: denies use current occupational status: other Travel in the last 8 weeks?: None household members: spouse housing: house marital status: Other Medical History Have you received the Flu Vaccine for this season: No Have you received the Pneumonia Vaccine: No Review of Systems Review of Systems Review of systems:: pertinent systems reviewed and negative unless documented below Review of systems (narrative): Review of Systems: General: No recent weight changes, no fever, no sleep disturbances Respiratory: No cough, no shortness of air, no recurring pulmonary infections Cardiovascular/peripheral vascular: No chest pain, no palpitations, no edema, no shortness of breath Gastrointestinal: No new onset incontinence, normal bowel movements reported Genitourinary: No new onset incontinence Musculoskeletal: Chronic back pain Psychiatric: [Normal mood/affect] Neurological: [Denies weakness in extremities], [denies balance issues] Meds Home Medications and Allergies Home Medications ?Medication ?Instructions ?Recorded ?Confirmed ?Type acetaminophen 500 mg tablet 1,000 mg PO Q6H PRN Pain 02/04/23 04/01/25 History (Tylenol Extra Strength) alprazolam 1 mg tablet 1 mg PO NEEDED PRN Anxiety 02/04/23 04/01/25 History carvedilol 6.25 mg tablet 6.25 mg PO BID 02/04/23 04/01/25 History escitalopram oxalate 20 mg tablet 20 mg PO DAILY 02/04/23 04/01/25 History lisinopril 10 mg tablet 10 mg PO DAILY 02/04/23 04/01/25 History pantoprazole 40 mg tablet,delayed 40 mg PO DAILY 02/04/23 04/01/25 History release buspirone 7.5 mg tablet 7.5 mg PO TID 10/01/23 04/01/25 History dupilumab 300 mg/2 mL subcutaneous 300 mg SQ WEEKLY 10/01/23 04/01/25 History pen injector (Dupixent) ubrogepant 100 mg tablet (Ubrelvy) 100 mg PO ONCE PRN migraine 10/01/23 04/01/25 Rx headache #10 tabs cariprazine 1.5 mg capsule 1.5 mg PO DAILY mood 01/27/24 04/01/25 History (Vraylar) lamotrigine 100 mg tablet 100 mg PO BID mood 01/27/24 04/01/25 History prazosin 1 mg capsule 1 mg PO DAILY 01/27/24 04/01/25 History atogepant 60 mg tablet (Qulipta) 60 mg PO DAILY Chronic migraine 05/18/24 04/01/25 Rx #30 tabs levothyroxine 200 mcg tablet 100 mcg PO DAILY 05/18/24 04/01/25 History tizanidine 4 mg tablet 4 mg PO HS PRN cervicogenic 05/18/24 04/01/25 Rx headaches #30 tabs New Prescriptions to Start Prescriptions: Allergies Allergy/AdvReac Type Severity Reaction Status Date / Time No Known Allergies Allergy Verified 05/18/24 08:34 Exam Data for Last 24 hours Vital signs and Labs for Last 24 Hours: Temp Pulse Resp BP Pulse Ox O2 Del Method 97.6 F 73 16 113/80 93 L Room Air 04/01/25 11:00 04/01/25 11:00 04/01/25 11:00 04/01/25 11:00 04/01/25 11:04/01/25 11:00 I & O for Last 24 hours: Intake & Output 03/29/25 03/30/25 03/31/25 04/01/25 23:59 23:59 23:59 23:59 Weight 229 lb Constitutional Constitutional: no acute distress *Routine HEENT Exam Head: Present normocephalic and atraumatic Eye: Present PERRL ENT: Present mucous membranes moist *Routine Neck Exam Neck: Present supple *Routine Respiratory Exam Respiratory: Present CTA bilaterally *Routine Cardiovascular Exam Cardiovascular: Present RRR *Routine Abdominal Exam Abdominal: Present soft *Routine Rectal Exam Rectal:: deferred *Routine Genitalia Exam Genitalia:: normal female Routine Back/Spine/Pelvis Exam Back/Spine: Present pain with flexion *Routine Skin Exam Skin: Present intact *Routine Neurological Exam Neurological: Present alert and oriented X3 Routine Psychiatric Exam Psychiatric: Present normal affect and normal thought process Assessment and Plan *Assessment and plan (1) Chronic back pain: Status: Acute Category: Medical Code(s): M54.9 - Dorsalgia, unspecified; G89.29 - Other chronic pain Plan Patient has been instructed to contact the clinic with any concerns before the next appointment. Dr. Bueno has reviewed this note and agrees with this plan of care. This note was dictated using voice recognition software and make contain errors or omissions. All injections are used with Lidocaine, Bupivacaine and dexamethasone. Occasionally urine drug screen is needed to verify patient's compliance with our office pain contract. This is ordered based off specific treatments related to chronic pain with the potential to abuse certain medications.
--- NOTE | 2025-04-01 11:34 | EXP.PAIN.PRO ---
Procedure Date: 04/01/25 Time: 11:34 Anesthesiologist:: Jeanne Blanton APRN Complications:: None Pre-procedure Diagnosis:: Degenerative disc disease of lumbar spine with lumbar radiculopathy symptoms Post-procedure Diagnosis:: Same Indications for Procedure:: Patient is a pleasant 44-year-old female who presents today for intrathecal refill and reprogram. Today she rates her pain a 3 out of 10. She denies any new trauma or injury. Patient is currently managed with morphine 1 mg/mL with a daily dose of 0.2556 mg/day. She denies any side effects. Her Abram has been reviewed and is appropriate. Physical Exam: General: Alert and oriented x3, no acute distress, pleasant and cooperative Lungs: Respirations even and unlabored, symmetrical chest expansion Eyes: PERRL Musculoskeletal: Flexion and extension of lumbar [spine] somewhat guarded secondary to pain, [antalgic gait noted] Neurological: Speech clear, no gross sensory deficit Procedure Details:: Informed consent was obtained and the risk and benefits of the procedure were explained to the patient. The patient had noninvasive monitoring placed including noninvasive blood pressure cuff and pulse oximeter. Patient's pump was interrogated. The area over the pump was cleansed with chlorhexidine as a cleansing solution. In sterile fashion the pump was accessed with a 22-gauge needle. Approximately 10.2 mls of the pump solution was removed and discarded appropriately. The pump was then refilled with 20 mL's of morphine 1 mg/mL. The needle was withdrawn and a bandage was placed over the puncture site. The infusion rate was reprogrammed and continued at his current dosage. The patient tolerated well with no complication. Plan and Disposition:: Patient tolerated the procedure well with no complications and was discharged neurologically intact. Patient will return to clinic on or before their next intrathecal refill date. We will see the patient back in the clinic at the next intrathecal refill. Patient has been instructed to contact the clinic with any concerns before the next appointment. Dr. Bueno has reviewed this note and agrees with this plan of care. This note was dictated using voice recognition software and make contain errors or omissions. -- It Is medically necessary for this patient to continue to have their intrathecal pump refilled at regular intervals. This patient had an intrathecal pain pump implanted after meeting criteria of chronic intractable pain for greater than 3 months and failing conservative treatments. Patient has committed and been compliant to the treatment plan and all planned follow up care. Since implantation of the intrathecal pain pump, the patient has had decreased pain and been more functional. Oral medications have been reduced including intake of oral opioids. Patient continues to do well with intrathecal therapy with decrease in pain symptoms and increase in functional status. Stopping intrathecal medications can lead to life threatening withdrawal, seizures, cardiac arrest, severe pain, and possible . Pumps that are not refilled at regular intervals can be damages and cause and need for replacement. We continually titrate dose and concentration to optimize pain relief and function. We are limited in concentration for certain drugs to safely deliver medications through the pump and stay within the recommendations from the Polyanalgesic Consensus Committee Guidelines. Depending on dose and concentration these pumps may need to be refilled sooner than 3 months as we titrate. A UDS is needed to verify patient's compliance with our office pain contract. This is ordered based off specific treatments related to chronic pain with the potential to abuse certain medications.
[2025-04-01 11:36] VITALS: BP 111/74; PULSE 79; RESP 16; O2SAT 96
[2025-04-01 12:18] VITALS: BP 113/80; PULSE 73; RESP 18; O2SAT 93
== END 2025-04-01 11:36 | disposition home or self-care (01) ==
PROVIDERS: PCP Family Medicine; Visit Provider Nurse Practitioner Family
DX: M51.16 Intervertebral disc disorders with radiculopathy, lumbar region (principal)
CPT/HCPCS: 62370

== ENCOUNTER 2025-05-06 11:16 | Day surgery (SDC) | payer MEDICAID, SELFPAY ==
[2025-05-06 11:32] VITALS: BP 118/69; PULSE 67; RESP 16; O2SAT 96; BMI 39.4
--- NOTE | 2025-05-06 11:51 | EXP.PM.HP ---
History of Present Illness *Admission Date: 05/06/25 *Reason for visit:: Intrathecal refill; DDD *History of present illness: Same [facility] Disclaimer: The information contained in this section may have been updated after the patient was seen, as this information can be updated by other users. Medical History SANJU (obstructive sleep apnea) Chronic headaches Surgical History History of ureteroscopy History of colonoscopy History of esophagogastroduodenoscopy (EGD) History of laparoscopic cholecystectomy History of hysterectomy Family History Other Cancer Coronary artery disease Hypertension Stroke Thyroid disorder Social History Smoking Status: Never smoker alcohol intake: never substance use type: denies use current occupational status: other Travel in the last 8 weeks?: None household members: spouse housing: house marital status: Have you lived/traveled outside [place] in past 30 days?: No Contact w/someone who lives/traveled outside [place] past 30 days?: No Exposure to someone with infectious disease in past 14 days?: No Do you have a fever (greater than 100.4 F or 38 C)?: No Have you tested positive for COVID-19?: No Exposed to someone with COVID-19 in past 14 days?: No Do you have a sore throat?: No Do you have a cough?: No Do you have any weakness?: No Do you have any diarrhea?: No Are you experiencing any unusual bleeding?: No Do you have any muscle aches/pain?: No Do you have any abdominal pain?: No Are you experiencing loss of taste or smell?: No Other Medical History Have you received the Flu Vaccine for this season: No Have you received the Pneumonia Vaccine: No Review of Systems Review of Systems Review of systems:: pertinent systems reviewed and negative unless documented below Review of systems (narrative): Review of Systems: General: No recent weight changes, no fever, no sleep disturbances Respiratory: No cough, no shortness of air, no recurring pulmonary infections Cardiovascular/peripheral vascular: No chest pain, no palpitations, no edema, no shortness of breath Gastrointestinal: No new onset incontinence, normal bowel movements reported Genitourinary: No new onset incontinence Musculoskeletal: Chronic back pain Psychiatric: [Normal mood/affect] Neurological: [Denies weakness in extremities], [denies balance issues] Meds Home Medications and Allergies Home Medications ?Medication ?Instructions ?Recorded ?Confirmed ?Type acetaminophen 500 mg tablet 1,000 mg PO Q6H PRN Pain 02/04/23 05/06/25 History (Tylenol Extra Strength) alprazolam 1 mg tablet 1 mg PO NEEDED PRN Anxiety 02/04/23 05/06/25 History carvedilol 6.25 mg tablet 6.25 mg PO BID 02/04/23 05/06/25 History escitalopram oxalate 20 mg tablet 20 mg PO DAILY 02/04/23 05/06/25 History lisinopril 10 mg tablet 10 mg PO DAILY 02/04/23 05/06/25 History pantoprazole 40 mg tablet,delayed 40 mg PO DAILY 02/04/23 05/06/25 History release buspirone 7.5 mg tablet 7.5 mg PO TID 10/01/23 05/06/25 History dupilumab 300 mg/2 mL subcutaneous 300 mg SQ WEEKLY 10/01/23 05/06/25 History pen injector (Dupixent) ubrogepant 100 mg tablet (Ubrelvy) 100 mg PO ONCE PRN migraine 10/01/23 05/06/25 Rx headache #10 tabs cariprazine 1.5 mg capsule 1.5 mg PO DAILY mood 01/27/24 05/06/25 History (Vraylar) lamotrigine 100 mg tablet 100 mg PO BID mood 01/27/24 05/06/25 History prazosin 1 mg capsule 1 mg PO DAILY 01/27/24 05/06/25 History atogepant 60 mg tablet (Qulipta) 60 mg PO DAILY Chronic migraine 05/18/24 05/06/25 Rx #30 tabs levothyroxine 200 mcg tablet 100 mcg PO DAILY 05/18/24 05/06/25 History tizanidine 4 mg tablet 4 mg PO HS PRN cervicogenic 05/18/24 05/06/25 Rx headaches #30 tabs New Prescriptions to Start Prescriptions: Allergies Allergy/AdvReac Type Severity Reaction Status Date / Time No Known Allergies Allergy Verified 05/18/24 08:34 Exam Data for Last 24 hours Vital signs and Labs for Last 24 Hours: Pulse Resp BP Pulse Ox O2 Del Method 67 16 118/69 96 Room Air 05/06/25 11:32 05/06/25 11:32 05/06/25 11:32 05/06/25 11:32 05/06/25 11:32 I & O for Last 24 hours: Intake & Output 05/03/25 05/04/25 05/05/25 05/06/25 23:59 23:59 23:59 23:59 Weight 230 lb Constitutional Constitutional: no acute distress *Routine HEENT Exam Head: Present normocephalic and atraumatic Eye: Present PERRL ENT: Present mucous membranes moist *Routine Neck Exam Neck: Present supple *Routine Respiratory Exam Respiratory: Present CTA bilaterally *Routine Cardiovascular Exam Cardiovascular: Present RRR *Routine Abdominal Exam Abdominal: Present soft *Routine Rectal Exam Rectal:: deferred *Routine Genitalia Exam Genitalia:: deferred Routine Back/Spine/Pelvis Exam Back/Spine: Present pain with flexion *Routine Skin Exam Skin: Present intact and warm *Routine Neurological Exam Neurological: Present alert and oriented X3 Routine Psychiatric Exam Psychiatric: Present normal affect and normal thought process Assessment and Plan *Assessment and plan (1) Chronic back pain: Status: Acute Category: Medical Code(s): M54.9 - Dorsalgia, unspecified; G89.29 - Other chronic pain Plan Patient has been instructed to contact the clinic with any concerns before the next appointment. Dr. Bueno has reviewed this note and agrees with this plan of care. This note was dictated using voice recognition software and make contain errors or omissions. All injections are used with Lidocaine, Bupivacaine and dexamethasone. Occasionally urine drug screen is needed to verify patient's compliance with our office pain contract. This is ordered based off specific treatments related to chronic pain with the potential to abuse certain medications.
--- NOTE | 2025-05-06 11:53 | P.PCN_ITS ---
Procedure Date: 05/06/25 Time: 12:00 Anesthesiologist:: Jeanne Blanton APRN Complications:: None Pre-procedure Diagnosis:: Degenerative disc disease of lumbar spine, chronic back pain Post-procedure Diagnosis:: Same Indications for Procedure:: Patient is a pleasant 44-year-old female who presents today for intrathecal refill and reprogram. She rates her pain today a 4 and her overall back however does state that her right hip and neck is about a 7 out of 10. Patient denies any new falls or injuries. Patient does state that she has had hip pain in the past and it is worse than the neck. She states it is a sharp sensation that is worse with any type of increased activity such as walking, prolonged sitting or standing. She states that she is having to change positions frequently due to the worsening pain and that is interfering with her ability perform activities of daily living such as cooking and cleaning. Patient is currently managed with morphine 1 mg/mL with a daily dose of 0.2556 mg/day. She denies any side effects. Patient is interested in additional injection therapy for the worsening pain. Her Abram has been reviewed and is appropriate. Physical Exam: General: Alert and oriented x3, no acute distress, pleasant and cooperative Lungs: Respirations even and unlabored, symmetrical chest expansion Eyes: PERRL Musculoskeletal: Flexion and extension of lumbar [spine] somewhat guarded secondary to pain, [antalgic gait noted] extreme point tenderness along right SI with positive right Rafa's, Sammy's, Gaenslen's, compression and distraction exam Neurological: Speech clear, no gross sensory deficit Procedure Details:: Informed consent was obtained and the risk and benefits of the procedure were explained to the patient. The patient had noninvasive monitoring placed including noninvasive blood pressure cuff and pulse oximeter. Patient's pump was interrogated. The area over the pump was cleansed with chlorhexidine as a cleansing solution. In sterile fashion the pump was accessed with a 22-gauge ne edle. Approximately 11 mls of the pump solution was removed and discarded appropriately. The pump was then refilled with 20 mL's of morphine 1 mg/mL. The needle was withdrawn and a bandage was placed over the puncture site. The infusion rate was reprogrammed and increased to morphine 0.2809 mg/day. The patient tolerated well with no complication. Plan and Disposition:: Patient tolerated the procedure well with no complications and was discharged neurologically intact. Patient is experiencing more significant pain in her low back along her right hip with extreme point tenderness along her right SI and a positive right Rafa's, Sammy's, Gaenslen's, compression and distraction exam. I did discuss with the patient that I do believe she would benefit from a right SI injection. Patient has had chronic right hip pain for longer than 6 months and has progressively worsened. Patient has not had any SI injections to compare to. Patient has tried and failed conservative therapy including oral medications, heat and ice, pulse, at home stretching exercise for longer than 12 weeks that was physician guided. Patient has seen an orthopedic provider for this pain. Patient will be scheduled for a right SI injection with less than 1 mL of solution to be injected. If she does get significant relief with this diagnostic injection we will look at possible additional injections in the future and a possible option of right SI fusion at a later date. Patient will return to clinic on or before their next intrathecal refill date. We will see the patient back in the clinic at the next intrathecal refill. Patient has been instructed to contact the clinic with any concerns before the next appointment. Dr. Bueno has reviewed this note and agrees with this plan of care. This note was dictated using voice recognition software and make contain errors or omissions. -- It Is medically necessary for this patient to continue to have their intrathecal pump refilled at regular intervals. This patient had an intrathecal pain pump implanted after meeting criteria of chronic intractable pain for greater than 3 months and failing conservative treatments. Patient has committed and been compliant to the treatment plan and all planned follow up care. Since implantation of the intrathecal pain pump, the patient has had decreased pain and been more functional. Oral medications have been reduced including intake of oral opioids. Patient continues to do well with intrathecal therapy with decrease in pain symptoms and increase in functional status. Stopping intrathecal medications can lead to life threatening withdrawal, seizures, cardiac arrest, severe pain, and possible . Pumps that are not refilled at regular intervals can be damages and cause and need for replacement. We continually titrate dose and concentration to optimize pain relief and function. We are limited in concentration for certain drugs to safely deliver medications through the pump and stay within the recommendations from the Polyanalgesic Consensus Committee Guidelines. Depending on dose and concentration these pumps may need to be refilled sooner than 3 months as we titrate. A UDS is needed to verify patient's compliance with our office pain contract. This is ordered based off specific treatments related to chronic pain with the potential to abuse certain medications.
[2025-05-06 12:02] VITALS: BP 130/76; PULSE 67; RESP 18; O2SAT 95
[2025-05-06 12:13] VITALS: BP 109/62; PULSE 62; RESP 18; O2SAT 97
== END 2025-05-06 12:13 | disposition home or self-care (01) ==
PROVIDERS: PCP Family Medicine; Visit Provider Nurse Practitioner Family
DX: Z45.1 Encounter for adjustment and management of infusion pump (principal); G89.29 Other chronic pain; M54.9 Dorsalgia, unspecified; M25.551 Pain in right hip; M54.2 Cervicalgia; M51.362 Other intervertebral disc degeneration, lumbar region with discogenic back pain and lower extremity pain; G47.33 Obstructive sleep apnea (adult) (pediatric); Z79.890 Hormone replacement therapy; Z79.899 Other long term (current) drug therapy; Z79.620 Long term (current) use of immunosuppressive biologic
CPT/HCPCS: 62370

== ENCOUNTER 2025-05-31 09:52 | Day surgery (SDC) | payer MEDICAID, SELFPAY ==
[2025-05-31 10:00] VITALS: BP 134/85; PULSE 78; RESP 18; O2SAT 98; BMI 39.4
[2025-05-31] MEDS: BUPIVACAINE 0.25% 10ML INJ 25 MG IJ (10:23)
[2025-05-31] MEDS: LIDOCAINE 1% 5ML PF VIAL 5 ML (10:23)
[2025-05-31 10:24] VITALS: BP 127/86; PULSE 77; RESP 18; O2SAT 100
[2025-05-31 10:25] VITALS: BP 127/86; PULSE 77; RESP 18; O2SAT 100
[2025-05-31 10:32] VITALS: BP 122/97; PULSE 71; RESP 18; O2SAT 98
--- NOTE | 2025-05-31 11:21 | P.PCN_ITS ---
Procedure Date: 05/31/25 Time: 11:00 Anesthesiologist:: Danny Kowalski CRNA Complications:: None Pre-procedure Diagnosis:: Right sacroiliitis Post-procedure Diagnosis:: Same Indications for Procedure:: Patient is a very pleasant 44-year-old female comes our clinic today for right sacroiliac joint injection cortisone local anesthetic. 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 Patient describes right posterior hip pain, right buttock pain, low lumbar back pain off the midline to the right. She rates her pain 7/10. Procedure Details:: Procedure: Right sacroliliac joint injection under fluoroscopy Informed consent was obtained and the risk and benefits of the procedure were explained to the patient.~ The patient was taken to the procedure room and noninvasive monitors were placed including noninvasive blood pressure cuff and pulse oximeter.~ The patient was placed prone on the procedure table.~ The~ right hip was cleansed using Betadine as a cleansing solution.~ C-arm fluorosocpy was used to view the right SI joint.~ The skin and subcutaneous tissues were anesthetized using Lidocaine 1.5% and a 25-gauge needle.~ After this, a 22-gauge spinal needle was inserted under fluoroscopic guidance into the inferior aspect of the right SI joint.~ Omnipaque dye was injected and a good spread was seen throughout the joint.~ After this, approximately 5 mL of bupivacaine 0.25% and dexamethasone 10 mg mg was incrementally injected into the sacroiliac joint.~ The patient tolerated the procedure well with no complications.~ The patient was observed in the Pain Clinic, then discharged home neurologically intact.~ Plan and Disposition:: Patient was discharged without incident.
== END 2025-05-31 10:32 | disposition home or self-care (01) ==
LOC: SC.PAINP 09:53
PROVIDERS: PCP Family Medicine; Visit Provider Nurse Anesthetist, Certified Registered
DX: M46.1 Sacroiliitis, not elsewhere classified (principal); G47.33 Obstructive sleep apnea (adult) (pediatric); Z79.890 Hormone replacement therapy; Z79.899 Other long term (current) drug therapy
CPT/HCPCS: 27096; J0665; J2003

== ENCOUNTER 2025-06-17 10:00 | Day surgery (SDC) | payer MEDICAID, SELFPAY ==
[2025-06-17 10:16] VITALS: BP 123/80; PULSE 75; RESP 18; O2SAT 98; BMI 39.4
[2025-06-17 10:44] VITALS: BP 128/71; PULSE 77; RESP 18; O2SAT 100
--- NOTE | 2025-06-17 10:56 | EXP.PM.HP ---
History of Present Illness *Admission Date: 06/17/25 *Reason for visit:: Intrathecal refill; DDD *History of present illness: Same [facility] Disclaimer: The information contained in this section may have been updated after the patient was seen, as this information can be updated by other users. Medical History SANJU (obstructive sleep apnea) Chronic headaches Surgical History History of ureteroscopy History of colonoscopy History of esophagogastroduodenoscopy (EGD) History of laparoscopic cholecystectomy History of hysterectomy Family History Other Cancer Coronary artery disease Hypertension Stroke Thyroid disorder Social History Smoking Status: Never smoker alcohol intake: never substance use type: denies use current occupational status: other Travel in the last 8 weeks?: None household members: spouse housing: house marital status: Other Medical History Have you received the Flu Vaccine for this season: No Have you received the Pneumonia Vaccine: No Review of Systems Review of Systems Review of systems:: pertinent systems reviewed and negative unless documented below Review of systems (narrative): Review of Systems: General: No recent weight changes, no fever, no sleep disturbances Respiratory: No cough, no shortness of air, no recurring pulmonary infections Cardiovascular/peripheral vascular: No chest pain, no palpitations, no edema, no shortness of breath Gastrointestinal: No new onset incontinence, normal bowel movements reported Genitourinary: No new onset incontinence Musculoskeletal: Chronic back pain Psychiatric: [Normal mood/affect] Neurological: [Denies weakness in extremities], [denies balance issues] Meds Home Medications and Allergies Home Medications ?Medication ?Instructions ?Recorded ?Confirmed ?Type acetaminophen 500 mg tablet 1,000 mg PO Q6H PRN Pain 02/04/23 06/17/25 History (Tylenol Extra Strength) alprazolam 1 mg tablet 1 mg PO NEEDED PRN Anxiety 02/04/23 06/17/25 History carvedilol 6.25 mg tablet 6.25 mg PO BID 02/04/23 06/17/25 History escitalopram oxalate 20 mg tablet 20 mg PO DAILY 02/04/23 06/17/25 History lisinopril 10 mg tablet 10 mg PO DAILY 02/04/23 06/17/25 History pantoprazole 40 mg tablet,delayed 40 mg PO DAILY 02/04/23 06/17/25 History release buspirone 7.5 mg tablet 7.5 mg PO TID 10/01/23 06/17/25 History dupilumab 300 mg/2 mL subcutaneous 300 mg SQ WEEKLY 10/01/23 06/17/25 History pen injector (Dupixent) ubrogepant 100 mg tablet (Ubrelvy) 100 mg PO ONCE PRN migraine 10/01/23 06/17/25 Rx headache #10 tabs cariprazine 1.5 mg capsule 1.5 mg PO DAILY mood 01/27/24 06/17/25 History (Vraylar) lamotrigine 100 mg tablet 100 mg PO BID mood 01/27/24 06/17/25 History prazosin 1 mg capsule 1 mg PO DAILY 01/27/24 06/17/25 History atogepant 60 mg tablet (Qulipta) 60 mg PO DAILY Chronic migraine 05/18/24 06/17/25 Rx #30 tabs levothyroxine 200 mcg tablet 100 mcg PO DAILY 05/18/24 06/17/25 History tizanidine 4 mg tablet 4 mg PO HS PRN cervicogenic 05/18/24 06/17/25 Rx headaches #30 tabs New Prescriptions to Start Prescriptions: Allergies Allergy/AdvReac Type Severity Reaction Status Date / Time No Known Allergies Allergy Verified 05/18/24 08:34 Exam Data for Last 24 hours Vital signs and Labs for Last 24 Hours: Pulse Resp BP Pulse Ox O2 Del Method 75 18 123/80 98 Room Air 06/17/25 10:16 06/17/25 10:16 06/17/25 10:16 06/17/25 10:16 06/17/25 10:16 I & O for Last 24 hours: Intake & Output 06/14/25 06/15/25 06/16/25 06/17/25 23:59 23:59 23:59 23:59 Weight 230 lb Constitutional Constitutional: no acute distress *Routine HEENT Exam Head: Present normocephalic and atraumatic Eye: Present PERRL ENT: Present mucous membranes moist *Routine Neck Exam Neck: Present supple *Routine Respiratory Exam Respiratory: Present CTA bilaterally *Routine Cardiovascular Exam Cardiovascular: Present RRR *Routine Abdominal Exam Abdominal: Present soft *Routine Rectal Exam Rectal:: deferred *Routine Genitalia Exam Genitalia:: deferred Routine Back/Spine/Pelvis Exam Back/Spine: Present pain with flexion *Routine Skin Exam Skin: Present intact and warm *Routine Neurological Exam Neurological: Present alert and oriented X3 Routine Psychiatric Exam Psychiatric: Present normal affect and normal thought process Assessment and Plan *Assessment and plan (1) Chronic back pain: Status: Acute Category: Medical Code(s): M54.9 - Dorsalgia, unspecified; G89.29 - Other chronic pain Plan Patient has been instructed to contact the clinic with any concerns before the next appointment. Dr. Bueno has reviewed this note and agrees with this plan of care. This note was dictated using voice recognition software and make contain errors or omissions. All injections are used with Lidocaine, Bupivacaine and dexamethasone. Occasionally urine drug screen is needed to verify patient's compliance with our office pain contract. This is ordered based off specific treatments related to chronic pain with the potential to abuse certain medications.
--- NOTE | 2025-06-17 10:58 | P.PCN_ITS ---
Procedure Date: 06/17/25 Time: 10:59 Anesthesiologist:: Jeanne Blanton APRN Complications:: None Pre-procedure Diagnosis:: Degenerative disc disease of lumbar and cervical spine, chronic pain syndrome Post-procedure Diagnosis:: Same Indications for Procedure:: Patient is a pleasant 44-year-old female who presents today for intrathecal refill and reprogram. She rates her pain today and 3 out of 10. She denies any new trauma or injury. She denies any issues with her pump however would like to be able to have more coverage for her chronic neck pain. Patient is currently managed with morphine 1 mg/mL with a daily dose of 0.2809 mg/day. She denies any side effects. Her Baram has been reviewed and is appropriate. Physical Exam: General: Alert and oriented x3, no acute distress, pleasant and cooperative Lungs: Respirations even and unlabored, symmetrical chest expansion Eyes: PERRL Musculoskeletal: Flexion and extension of lumbar [spine] somewhat guarded secondary to pain, [antalgic gait noted] Neurological: Speech clear, no gross sensory deficit Procedure Details:: Informed consent was obtained and the risk and benefits of the procedure were explained to the patient. The patient had noninvasive monitoring placed includi ng noninvasive blood pressure cuff and pulse oximeter. Patient's pump was interrogated. The area over the pump was cleansed with chlorhexidine as a cleansing solution. In sterile fashion the pump was accessed with a 22-gauge needle. Approximately 8 mls of the pump solution was removed and discarded appropriately. The pump was then refilled with 20 mL's of morphine 3 mg/mL. The needle was withdrawn and a bandage was placed over the puncture site. The infusion rate was reprogrammed and changed to flex dosing to a daily dose of 0.2783 mg/day. The patient tolerated well with no complication. Plan and Disposition:: Patient tolerated the procedure well with no complications and was discharged neurologically intact. Patient was counseled that we are switching her concentration today to 3 mg/mL. We did also discuss the possibility of changing her to periodic or flex dosing to provide additional coverage for her neck. Patient did want to proceed forward with this option so we did change her programming. Patient was counseled that she would not be able to use her bolus device while on this setting. We did discuss that we will give her a 1 week follow-up and that she can cancel this if she does not need it however in case she does not flex dosing or feels like it still needs additional adjustment that she can come in. Patient will also be given her next refill date. Patient agrees with this plan of care. We will see the patient back in the clinic at the next intrathecal refill. Patient has been instructed to contact the clinic with any concerns before the next appointment. Dr. Bueno has reviewed this note and agrees with this plan of care. This note was dictated using voice recognition software and make contain errors or omissions. -- It Is medically necessary for this patient to continue to have their intrathecal pump refilled at regular intervals. This patient had an intrathecal pain pump implanted after meeting criteria of chronic intractable pain for greater than 3 months and failing conservative treatments. Patient has committed and been compliant to the treatment plan and all planned follow up care. Since implantation of the intrathecal pain pump, the patient has had decreased pain and been more functional. Oral medications have been reduced including intake of oral opioids. Patient continues to do well with intrathecal therapy with decrease in pain symptoms and increase in functional status. Stopping intrathecal medications can lead to life threatening withdrawal, seizures, cardiac arrest, severe pain, and possible . Pumps that are not refilled at regular intervals can be damages and cause and need for replacement. We continually titrate dose and concentration to optimize pain relief and function. We are limited in concentration for certain drugs to safely deliver medications through the pump and stay within the recommendations from the [employer] Guidelines. Depending on dose and concentration these pumps may need to be refilled sooner than 3 months as we titrate. A UDS is needed to verify patient's compliance with our office pain contract. This is ordered based off specific treatments related to chronic pain with the potential to abuse certain medications.
[2025-06-17 11:11] VITALS: BP 103/72; PULSE 69; RESP 18; O2SAT 98
== END 2025-06-17 11:11 | disposition home or self-care (01) ==
PROVIDERS: PCP Family Medicine; Visit Provider Nurse Practitioner Family
DX: Z45.1 Encounter for adjustment and management of infusion pump (principal); M50.30 Other cervical disc degeneration, unspecified cervical region; M51.369 Other intervertebral disc degeneration, lumbar region without mention of lumbar back pain or lower extremity pain; G89.4 Chronic pain syndrome; R51.9 Headache, unspecified; G47.33 Obstructive sleep apnea (adult) (pediatric); Z79.890 Hormone replacement therapy; Z79.899 Other long term (current) drug therapy
CPT/HCPCS: 62370

== ENCOUNTER 2025-09-20 08:28 | Day surgery (SDC) | payer MEDICAID, SELFPAY ==
[2025-09-20 08:38] VITALS: BP 111/77; PULSE 81; RESP 16; O2SAT 95; BMI 39.6
[2025-09-20] MEDS: BUPIVACAINE 0.25% 10ML INJ 25 MG IJ (09:10)
[2025-09-20 09:11] VITALS: BP 111/77; PULSE 81; RESP 18; O2SAT 95
[2025-09-20] MEDS: LIDOCAINE 1% 5ML PF VIAL 5 ML (09:11)
[2025-09-20] MEDS: DEXAMETHASONE 10MG/ML 1ML VIAL 10 MG (09:11)
--- NOTE | 2025-09-20 09:12 | EXP.PAIN.PRO ---
Procedure Date: 09/20/25 Time: 09:00 Anesthesiologist:: Jackson Kowalski CRNA Complications:: None Pre-procedure Diagnosis:: Bilateral trochanteric bursitis Post-procedure Diagnosis:: Same Indications for Procedure:: Patient is a pleasant 45-year-old female comes our clinic today for bilateral trochanteric bursa injection. Patient describes bilateral lateral hip pain as constant, dull, aching, sharp, stabbing. She is having difficulty with ambulation due to the bilateral lateral hip pain. She rates her pain 7/10. Patient is also managed with intrathecal morphine 3 mg/mL at a daily dose of 0.2783 mg/day. Procedure Details:: Procedure: Bilateral trochanteric bursa joint injections under fluoroscopy Informed consent was obtained and the risks and benefits of the procedure were explained to the patient.~ The patient was taken to the procedure room and noninvasive monitors were placed including a noninvasive blood pressure cuff and pulse oximeter.~ The patient was placed prone on the procedure table. The area over the posterior hips was cleansed using chlorhexidine as a cleansing solution. Using fluoroscopy guidance the left trochanteric bursa was accessed with ease using a 22-gauge 3 and half inch spinal needle. 0.5 mL of contrast dye was injected to confirm the needle placement. At this time 3 cc of 1% lidocaine +3 cc of 0.25% Marcaine and 5 mg of dexamethasone was injected. The same procedure was carried out over the right trochanteric bursa. The patient tolerated the procedure without difficulty. There were no complications. Plan and Disposition:: Patient was discharged without incident.
[2025-09-20 09:13] VITALS: BP 114/78; PULSE 81; RESP 16; O2SAT 95
[2025-09-20 09:17] VITALS: BP 111/77; PULSE 81; RESP 18; O2SAT 95
== END 2025-09-20 09:13 | disposition home or self-care (01) ==
PROVIDERS: PCP Family Medicine; Visit Provider Nurse Anesthetist, Certified Registered
DX: M70.61 Trochanteric bursitis, right hip (principal); M70.62 Trochanteric bursitis, left hip; K21.9 Gastro-esophageal reflux disease without esophagitis; I10 Essential (primary) hypertension; E03.9 Hypothyroidism, unspecified; F32.A Depression, unspecified; R51.9 Headache, unspecified; Z79.890 Hormone replacement therapy; Z79.899 Other long term (current) drug therapy
CPT/HCPCS: 20610; J0665; J1100; J2003